=== PATIENT | female | born 1960 | race Caucasian/White ===

== ENCOUNTER 2023-09-10 21:19 | Emergency (ER) | payer MEDICAID, SELFPAY ==
--- NOTE | 2023-09-10 21:15 | HMH.EDGENADL ---
Discharge Plan Disposition Patient Disposition: Home, Self-Care Chief Complaint: Back Pain/Injury Prescriptions Prescriptions: No Action oxycodone-acetaminophen 7.5-325 mg tablet 1 tab PO TID Patient Comments: TAKE 1 TABLET BY MOUTH THREE TIMES DAILY bupropion HCl 300 mg tablet extended release 24 hr 300 mg PO DAILY Patient Comments: TAKE 1 TABLET BY MOUTH ONCE DAILY IN THE MORNING venlafaxine 75 mg capsule,extended release 24hr 75 mg PO DAILY Patient Comments: TAKE 1 CAPSULE BY MOUTH ONCE DAILY fenofibrate nanocrystallized 145 mg tablet PO Patient Comments: TAKE ONE TABLET BY MOUTH EVERY DAY docusate sodium 100 mg capsule PO Patient Comments: TAKE ONE CAPSULE BY MOUTH TWICE DAILY lidocaine 5 % adhesive patch,medicated 1 patch transdermal DAILY PRN Patient Comments: APPLY ONE PATCH TO affected area FOR 12 HOURS in A 24 HOUR period diazepam 5 mg tablet 5 mg PO TID Patient Comments: TAKE ONE TABLET BY MOUTH THREE TIMES DAILY omeprazole 20 mg capsule,delayed release(DR/EC) 20 mg PO DAILY PRN Patient Comments: TAKE ONE CAPSULE BY MOUTH EVERY DAY FOR reflux sumatriptan succinate 6 mg/0.5 mL solution SQ Patient Comments: INJECT 0.5 MILLILITERS UNDER THE SKIN AT ONSET of HEADACHE, MAY REPEAT DOSE in ONE hour If needed, no more THAN TWO doses PER 24 hours. albuterol sulfate 2.5 mg /3 mL (0.083 %) solution for nebulization 2.5 mg inhalation ONCE PRN Patient Comments: INHALE ONE vial EVERY 4 HOURS NEEDED levothyroxine [Synthroid] 50 mcg tablet 50 mcg PO DAILY Patient Comments: TAKE ONE TABLET BY MOUTH EVERY DAY dicyclomine 20 mg tablet 20 mg PO BID Patient Comments: TAKE ONE TABLET BY MOUTH EVERY 6 HOURS NEEDED diclofenac sodium [Voltaren Arthritis Pain] 1 % gel 2 g topical QID Qty: 100 2RF Rx Instructions: apply to single elbow, wrist or hand; for hand includes palm/fingers/back of hand tizanidine [Zanaflex] 4 mg capsule 4 mg PO TID PRN (Reason: muscle spasticity) Qty: 30 0RF ergocalciferol (vitamin D2) 1,250 mcg (50,000 unit) capsule 1,250 mcg PO WEEKLY Qty: 7 1RF Referrals Follow up/Referrals: Tommy Charles MD [Staff Physician] - See instructions Activity Restrictions/Add. Instructions Additional Instructions/Restrictions: Call your family doctor to establish care for this visit to the emergency department and schedule follow-up within 48 hours to ensure improvement. If you have any worsening of your condition or any other concerning signs or symptoms, return to the emergency department or your primary care doctor for further evaluation. Clinical Impressions Clinical Impression: Lumbar spine pain Instructions Patient Instructions: DI for Low Back Pain Discharge ED Provider: Tan Toro [facility] Adult HPI General Chief complaint: Back Pain/Injury Stated complaint: back pain Time Seen by Provider: 09/10/23 21:15 History of Present Illness HPI narrative: 62-year-old female history of chronic back pain on daily Percocet and Valium presenting with back pain. Patient states that she fell 2 days prior to this visit. She slipped secondary to foot drop and high arches landed directly on her buttocks. Had immediate pain in her lower back. Denies bowel or bladder dysfunction, lower extremity weakness, saddle anesthesia, or any other concerns. Concerned she may have broken her back since she has numerous fractures in her lower back in the past. Related Data Home Medications Medication Instructions Recorded Confirmed albuterol sulfate 2.5 mg/3 mL 2.5 mg inhalation ONCE PRN 08/20/23 08/20/23 (0.083 %) solution for nebulization bupropion HCl 300 mg 24 hr tablet, 300 mg PO DAILY 08/20/23 08/20/23 extended release diazepam 5 mg tablet 5 mg PO TID 08/20/23 08/20/23 dicyclomine 20 mg tablet 20 mg PO BID 08/20/23 08/20/23 docusate sodium 100 mg capsule mg PO 08/20/23 08/20/23 fenofibrate nanocrystallized 145 mg PO 08/20/23 08/20/23 mg tablet levothyroxine 50 mcg tablet 50 mcg PO DAILY 08/20/23 08/20/23 (Synthroid) lidocaine 5 % topical patch 1 patch transdermal DAILY PRN 08/20/23 08/20/23 omeprazole 20 mg capsule,delayed 20 mg PO DAILY PRN 08/20/23 08/20/23 release oxycodone-acetaminophen 7.5 mg-325 1 tab PO TID 08/20/23 08/20/23 mg tablet sumatriptan succinate 6 mg/0.5 mL mg SQ 08/20/23 08/20/23 subcutaneous solution venlafaxine 75 mg capsule,extended 75 mg PO DAILY 08/20/23 08/20/23 release 24 hr Previous Rx's Medication Instructions Recorded diclofenac sodium 1 % topical gel 2 g topical QID #100 grams 08/20/23 (Voltaren Arthritis Pain) ergocalciferol (vitamin D2) 1,250 1,250 mcg PO WEEKLY #7 caps 08/20/23 mcg (50,000 unit) capsule tizanidine 4 mg capsule (Zanaflex) 4 mg PO TID PRN muscle spasticity 08/20/23 #30 caps Allergies Allergy/AdvReac Type Severity Reaction Status Date / Time acetaminophen [From Vicodin] AdvReac Mild Verified 08/20/23 11:21 Antihistamines - Alkylamine AdvReac Mild Verified 08/20/23 11:21 aripiprazole [From Abilify] AdvReac Mild Verified 08/20/23 11:21 bacitracin AdvReac Mild Verified 08/20/23 11:21 [From Neosporin ([id number])] brexpiprazole [From Rexulti] AdvReac Mild Verified 08/20/23 11:21 buspirone [From BuSpar] AdvReac Mild Verified 08/20/23 11:21 carbamazepine [From Tegretol] AdvReac Mild Verified 08/20/23 11:21 cariprazine [From Vraylar] AdvReac Mild Verified 08/20/23 11:21 celecoxib [From Celebrex] AdvReac Mild Verified 08/20/23 11:21 chlordiazepoxide AdvReac Mild Verified 08/20/23 11:21 [From Librium] chlorpromazine AdvReac Mild Verified 08/20/23 11:21 [From Thorazine] clomipramine [From Anafranil] AdvReac Mild Verified 08/20/23 11:21 clonazepam [From Klonopin] AdvReac Mild Verified 08/20/23 11:21 codeine AdvReac Mild Verified 08/20/23 11:21 cyclobenzaprine AdvReac Mild Verified 08/20/23 11:21 [From Flexeril] desipramine [From Norpramin] AdvReac Mild Verified 08/20/23 11:21 desvenlafaxine [From Pristiq] AdvReac Mild Verified 08/20/23 11:21 dexmedetomidine AdvReac Mild Verified 08/20/23 11:21 divalproex sodium AdvReac Mild Verified 08/20/23 11:21 [From Depakote] duloxetine [From Cymbalta] AdvReac Mild Verified 08/20/23 11:21 eszopiclone [From Lunesta] AdvReac Mild Verified 08/20/23 11:21 fentanyl AdvReac Mild Verified 08/20/23 11:21 fluoxetine [From Prozac] AdvReac Mild Verified 08/20/23 11:21 hydrocodone [From Vicodin] AdvReac Mild Verified 08/20/23 11:21 ibuprofen AdvReac Mild Verified 08/20/23 11:21 lorazepam [From Ativan] AdvReac Mild Verified 08/20/23 11:21 lurasidone [From Latuda] AdvReac Mild Verified 08/20/23 11:21 meperidine [From Demerol] AdvReac Mild Verified 08/20/23 11:21 methadone AdvReac Mild Verified 08/20/23 11:21 mirtazapine [From Remeron] AdvReac Mild Verified 08/20/23 11:21 morphine AdvReac Mild Verified 08/20/23 11:21 neomycin AdvReac Mild Verified 08/20/23 11:21 [From Neosporin ([id number])] paroxetine [From Paxil] AdvReac Mild Verified 08/20/23 11:21 perphenazine [From Trilafon] AdvReac Mild Verified 08/20/23 11:21 polymyxin B AdvReac Mild Verified 08/20/23 11:21 [From Neosporin ([id number])] propranolol [From Inderal LA] AdvReac Mild Verified 08/20/23 11:21 quetiapine [From Seroquel] AdvReac Mild Verified 08/20/23 11:21 risperidone [From Risperdal] AdvReac Mild Verified 08/20/23 11:21 sertraline [From Zoloft] AdvReac Mild Verified 08/20/23 11:21 temazepam [From Restoril] AdvReac Mild Verified 08/20/23 11:21 topiramate [From Topamax] AdvReac Mild Verified 08/20/23 11:21 tramadol [From Ultram] AdvReac Mild Verified 08/20/23 11:21 vortioxetine AdvReac Mild Verified 08/20/23 11:21 [From Trintellix] ziprasidone [From Geodon] AdvReac Mild Verified 08/20/23 11:21 zolpidem [From Ambien] AdvReac Mild Verified 08/20/23 11:21 steroids Allergy Mild Uncoded 08/20/23 11:21 calmine lotion AdvReac Mild Uncoded 08/20/23 11:21 mobic AdvReac Mild Uncoded 08/20/23 11:21 PFSH PFS Disclaimer: The information contained in this section may have been updated after the patient was seen, as this information can be updated by other users. Medical History (Updated 09/10/23 @ 22:30 by Tan Toro MD) Dystonia Frequent falls Hyperlipemia Muscle spasm Sjogrens syndrome Surgical History (Updated 08/20/23 @ 10:49 by Albina Duke CMA) H/O cervical spine surgery H/O hernia repair History of arthroplasty of left ankle History of cholecystectomy History of tonsillectomy Hx of appendectomy Family History (Updated 08/20/23 @ 10:50 by Albina Duke CMA) Other Cancer Coronary artery disease Diabetes FHx: mental illness Hypertension Substance abuse Thyroid disorder Social History (Updated 08/20/23 @ 10:51 by Albina Duke CMA) Smoking Status: Never smoker alcohol intake: current substance use type: former substance user current occupational status: disabled Travel in the last 8 weeks: None ROS Obtained: Yes All systems reviewed & no additional complaints except as documented Physical Exam General General appearance: alert and in no apparent distress Head Head exam: atraumatic and normocephalic Eye Eye exam: Present normal appearance, PERRL and EOMI ENT ENT exam: Present mucous membranes moist Neck Neck exam: Present normal inspection, full ROM and trachea midline Respiratory Respiratory exam: Absent respiratory distress, wheezes, stridor, accessory muscle use or prolonged expiratory phase Cardiovascular Cardiovascular exam: Present normal rhythm Abdominal Exam Abdominal exam: Present soft; Absent distention, tenderness, guarding, rebound or rigidity Extremities Exam Extremities exam: Absent edema Back Exam Back exam: Present tenderness Neurological Exam Neurological exam: Present alert, oriented X3, CN II-XII intact and normal gait; Absent motor sensory deficit Skin Skin exam: Present warm and dry; Absent diaphoresis or erythema Medical Decision Making Medical Records Medical records reviewed: Yes I reviewed the patient's medical records. [place] Inquiry Pt receiving controlled substance: No [place] was queried for this patient: No Vital Signs: 09/10/23 21:17 09/10/23 21:45 Temperature 98.3 F Temperature Source Oral Pulse Rate 80 Pulse Rate [Right] 88 Respiratory Rate 16 Blood Pressure 166/92 H Blood Pressure [Right Arm] 144/99 H Blood Pressure Mean [Right Arm] 114 Blood Pressure Position [Right Arm] Sitting 02 Sat by Pulse Oximetry 97 97 Oxygen Delivery Method Room Air Room Air Orders (Tests/Meds): ED MEDICATIONS Discontinued Medications Generic Name Dose Route Start Last Admin Trade Name Freq PRN Reason Stop Dose Admin Acetaminophen 1,000 mg 09/10/23 21:22 09/10/23 21:33 Acetaminophen 1,000mg/100ml Vial IV 09/10/23 21:23 1,000 mg ONCE ONE Administration Lidocaine 1 each 09/10/23 21:22 09/10/23 21:34 Lidocaine 5% Transdermal Patch TP 09/10/23 21:23 1 each ONCE ONE Administration ORDERS Category Date Time Status CT lumbar spine wo con Stat Cat Scan 09/10/23 21:[address] thoracic spine wo con Stat Cat Scan 09/10/23 21:21 Completed Medical Decision Narrative: 62-year-old female history of chronic back pain on daily Percocet and Valium presenting with back pain. Patient states that she fell 2 days prior to this visit. She slipped secondary to foot drop and high arches landed directly on her buttocks. Had immediate pain in her lower back. Denies bowel or bladder dysfunction, lower extremity weakness, saddle anesthesia, or any other concerns. Concerned she may have broken her back since she has numerous fractures in her lower back in the past. History was obtained via conversation with patient. On arrival, patient hemodynamically stable, alert, oriented x4, appropriate, GCS 15, moving all extremities spontaneously, pupils equal and reactive to light. Full physical exam performed and significant for chronically ill-appearing woman in no acute distress. Tenderness to thoracolumbar spine without outward signs of deformity, bruising, or injury. No bruising. Neurologically intact. Intermittently having cramps in her left lower extremity. Differential includes fracture, sprain, strain, benign MSK injury, retropulsion, spinal compression, among others. Patient was given Toradol with EMS, acetaminophen and lidocaine patch for symptomatic management and correction of underlying abnormalities. Workup independently interpreted and significant for no acute fractures or bony abnormalities of the back. See radiology read for full review of final results. Given patient presentation, workup, history, this most likely represents acute musculoskeletal back pain in the setting of fall with chronic back pain. Because patient at baseline without signs or symptoms of clinical decompensation, deemed appropriate for discharge. Results were relayed to patient who voiced understanding and were agreeable to outpatient management and follow up. At the time of discharge the patient was hemodynamically stable, tolerating PO, and mobilizing appropriately. Critical Care Critical Care Time Critical Care Time: No
[2023-09-10 21:17] VITALS: BP 144/99; PULSE 88; RESP 16; TEMP 36.8; O2SAT 97; BMI 24.4
--- NOTE | 2023-09-10 21:21 | CT_ITS ---
PROCEDURE INFORMATION: Exam: CT Lumbar Spine Without Contrast Exam date and time: 09/10/2023 9:54 PM Age: 62 years old Clinical indication: Low back pain; Patient HX: Pain post fall a couple days ago; Additional info: Fall on buttocks, midline and R spine pain TECHNIQUE: Imaging protocol: Computed tomography of the lumbar spine without contrast. Radiation optimization: All CT scans at this facility use at least one of these dose optimization techniques: automated exposure control; mA and/or kV adjustment per patient size (includes targeted exams where dose is matched to clinical indication); or iterative reconstruction. COMPARISON: CT THORACIC SPINE WO CON 09/10/2023 9:51 PM FINDINGS: Bones/joints: Spine alignment is normal. Diffuse osteopenia. Subtle fractures may be missed. No definite fracture or bone destruction. Mild superior and inferior endplate Schmorl's node deformities sagittal image 1002/54. Disc space narrowing at L5-S1 with vacuum disc phenomenon and small posterior projecting disc osteophyte complex. Sacrum and sacroiliac joints appear intact.. Soft tissues: Unremarkable. IMPRESSION: 1. Spine alignment is normal. 2. Diffuse osteopenia. Subtle fractures may be missed. 3. No definite fracture or bone destruction. 4. Mild superior and inferior endplate Schmorl's node deformities sagittal image 1002/54. 5. Disc space narrowing at L5-S1 with vacuum disc phenomenon and small posterior projecting disc osteophyte complex. 6. Sacrum and sacroiliac joints appear intact..
--- NOTE | 2023-09-10 21:21 | CT_ITS ---
PROCEDURE INFORMATION: Exam: CT Thoracic Spine Without Contrast Exam date and time: 09/10/2023 9:51 PM Age: 62 years old Clinical indication: Pain in thoracic spine; Patient HX: States pain post fall a couple days ago; Additional info: Fall on buttocks, midline and R spine pain TECHNIQUE: Imaging protocol: Computed tomography of the thoracic spine without contrast. Radiation optimization: All CT scans at this facility use at least one of these dose optimization techniques: automated exposure control; mA and/or kV adjustment per patient size (includes targeted exams where dose is matched to clinical indication); or iterative reconstruction. COMPARISON: No relevant prior studies available. FINDINGS: Bones/joints: Mild scoliosis thoracolumbar junction convex to the left. Diffuse osteopenia. Subtle fractures may be missed. No fracture or bone destruction. Multilevel degenerative change of the thoracic spine. Calcified 4 mm disc protrusion at T6-7 sagittal image 1002/45. Soft tissues: Unremarkable. Spleen: Partially visualized calcified splenic granulomas. IMPRESSION: 1. Mild scoliosis thoracolumbar junction convex to the left. 2. Diffuse osteopenia. Subtle fractures may be missed. 3. No fracture or bone destruction. 4. Multilevel degenerative change of the thoracic spine. 5. Calcified 4 mm disc protrusion at T6-7 sagittal image 1002/45. 6. Partially visualized calcified splenic granulomas.
[2023-09-10] MEDS: ACETAMINOPHEN 1,000MG/100ML VIAL 1000 MG IV (21:33)
[2023-09-10] MEDS: LIDOCAINE 5% TRANSDERMAL PATCH 1 EACH TP (21:34)
[2023-09-10 21:45] VITALS: BP 166/92; PULSE 80; O2SAT 97
[2023-09-10 22:48] VITALS: BP 137/100; PULSE 81; RESP 18; TEMP 36.7; O2SAT 98
== END 2023-09-10 23:16 | disposition home or self-care (01) ==
PROVIDERS: Emergency Provider Emergency Medicine; PCP Nurse Practitioner Family
DX: M54.50 Low back pain, unspecified (principal); G24.9 Dystonia, unspecified; E78.5 Hyperlipidemia, unspecified; M35.00 Sjogren syndrome, unspecified; R29.6 Repeated falls; W01.0XXA Fall on same level from slipping, tripping and stumbling without subsequent striking against object, initial encounter
CPT/HCPCS: 72128; 72131; 96374; 99285; J0131

== ENCOUNTER 2023-10-06 13:02 | Outpatient (CLI) | payer MEDICAID, SELFPAY ==
--- NOTE | 2023-10-06 13:15 | XR_ITS ---
FINAL REPORT CLINICAL HISTORY: right knee pain COMPARISON: None FINDINGS: RIGHT KNEE: 4 views of the left knee were obtained. There is no acute fracture or dislocation. There is mild and moderate degenerative change. There is patellofemoral compartment narrowing. There is no joint effusion. Soft tissues are unremarkable. IMPRESSION: Degenerative change without acute bony abnormality. Reviewed, Interpreted and Dictated by Raf Bradford III, MD Transcribed by Lesli Canchola Authenticated and [facility]
== END 2023-10-06 23:59 ==
LOC: RAD 13:03
PROVIDERS: PCP Nurse Practitioner Family; Visit Provider Orthopaedic Surgery
DX: M25.561 Pain in right knee (principal)
CPT/HCPCS: 73562

== ENCOUNTER 2023-10-06 14:58 | Outpatient (RCR) | payer MEDICAID, SELFPAY | END 2023-10-06 15:45 | disposition home or self-care (01) | LOC: PT 14:58 | PROVIDERS: Visit Provider Orthopaedic Surgery | DX: M17.11 Unilateral primary osteoarthritis, right knee (principal); R29.6 Repeated falls | CPT/HCPCS: 97760 ==

== ENCOUNTER 2023-11-30 17:07 | Outpatient (CLI) | payer MEDICAID, SELFPAY ==
--- NOTE | 2023-11-30 17:07 | MR_ITS ---
FINAL REPORT CLINICAL HISTORY: Rt Knee Pain. KNEE INSTABILITY. FINDINGS: Multiplanar MR imaging of the right knee was performed without contrast. The medial and lateral menisci are intact without evidence of meniscal tear. The anterior and posterior cruciate ligaments are intact. The medial collateral ligament and lateral ligamentous complex are intact. Small partial tears are seen of the distal quadriceps tendon. The patellar tendon is intact. There is no evidence of fracture. Moderate degenerative changes are seen. Severe patellofemoral chondromalacia is noted. There is bone marrow edema throughout the patella with mild lateral patellar subluxation. A small joint effusion is seen. The musculature is intact. No soft tissue mass or cyst is identified. IMPRESSION: No evidence of meniscal or ligamentous injury. Moderate degenerative change. 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 Small partial tears of the distal quadriceps tendon. Authenticated and [facility]
== END 2023-11-30 23:59 ==
LOC: RAD 17:07
PROVIDERS: PCP Nurse Practitioner Family; Visit Provider Orthopaedic Surgery
DX: M25.561 Pain in right knee (principal)
CPT/HCPCS: 73721

== ENCOUNTER 2023-12-14 14:37 | Outpatient (CLI) | payer MEDICAID, SELFPAY ==
[2023-12-14 15:18] LABS: Basophils # 0.1 K/mm3 (0-0.2); Basophils % 1.2 % (0.1-2.0); Eosinophils # 0.2 K/mm3 (0.0-0.4); Eosinophils % 1.9 % (0.1-12.0); Hematocrit 38.9 % (37.0-47.0); Hemoglobin 12.3 g/dL (12.2-16.2); Lymphocytes # 2.6 K/mm3 (0.7-4.5); Lymphocytes % 33.1 % (10-50); Mean Corpuscular HGB Conc 31.7 g/dL (31.8-35.4); Mean Corpuscular Hemoglobin 32.1 pg (27.0-31.2); Mean Corpuscular Volume 101.4 fl (81-99); Monocytes # 0.4 K/mm3 (0.1-1.0); Neutrophils # 4.6 K/mm3 (1.8-7.8); Neutrophils % 58.8 % (37.0-80.0); Platelet Count 432 K/mm3 (142-424); Red Blood Count 3.84 M/mm3 (4.20-5.40); Red Cell Distribution Width 12.6 % (11.5-17.5); White Blood Count 7.8 K/mm3 (4.8-10.8)
[2023-12-14 16:06] LABS: Alanine Aminotransferase 25 U/L (12-78); Albumin Level 4.5 g/dl (3.5-5.0); Alkaline Phosphatase 58 U/L (38-126); Anion Gap 12.1 mEq/L (5-15); Aspartate Amino Transferase 36 U/L (14-36); Bilirubin,Total 0.3 mg/dl (0.2-1.3); Blood Urea Nitrogen 16 mg/dl (7-17); Carbon Dioxide 25 mmol/L (22.0-30.0); Chloride 106 mmol/L (98-107); Chol/HDL Ratio 2.1 (1-3.5); Cholesterol 220 mg/dl (140-200); Estimated Glomerular Filt Rate 72 ml/min (>60); GFR (African American) 87 ML/MIN (>60); Globulin 2.3 g/dL (1.3-3.2); Glucose 98 mg/dl (74-100); HDL Cholesterol 103 mg/dl (40-60); Potassium 4.1 mmoL/L (3.5-5.1); Sodium 139 mmol/L (136-145); Total Protein,Serum 6.8 g/dl (6.3-8.2); Triglycerides 90 mg/dl (30-150); VLDL Cholesterol 18 mg/dL (0-40)
[2023-12-14 16:17] LABS: Direct LDL Cholesterol 102.28 mg/dL (100-129)
[2023-12-14 16:37] LABS: Thyroid Stimulating Hormone 0.45 uIU/mL (0.465-4.68)
[2023-12-14 17:13] LABS: Vitamin B12 619 pg/mL (239-931)
[2023-12-14 17:21] LABS: Folate > 20.00 ng/mL
[2023-12-14 18:05] LABS: Iron 95 ug/dL (37-170)
[2023-12-14 18:14] LABS: Total Iron Binding Capacity 381 ug/dL (265-497)
[2023-12-14 18:41] LABS: Ferritin 34.3 ng/ml (11.1-264)
== END 2023-12-14 23:59 | disposition home or self-care (01) ==
LOC: LAB 14:37
PROVIDERS: PCP Nurse Practitioner Family; Visit Provider Nurse Practitioner Family
DX: R26.89 Other abnormalities of gait and mobility (principal); F39 Unspecified mood [affective] disorder; Z86.69 Personal history of other diseases of the nervous system and sense organs; F11.90 Opioid use, unspecified, uncomplicated; F14.91 Cocaine use, unspecified, in remission; Z86.73 Personal history of transient ischemic attack (TIA), and cerebral infarction without residual deficits; Z79.899 Other long term (current) drug therapy; W19.XXXS Unspecified fall, sequela
CPT/HCPCS: 36415; 80053; 80061; 82607; 82728; 82746; 83540; 83550; 84443; 85025

== ENCOUNTER 2024-01-19 14:28 | Outpatient (CLI) | payer MEDICAID, SELFPAY ==
[2024-01-19 15:07] LABS: Blood Urea Nitrogen 11 mg/dl (7-17); Estimated Glomerular Filt Rate 72 ml/min (>60); GFR (African American) 87 ML/MIN (>60)
== END 2024-01-19 23:59 | disposition home or self-care (01) ==
LOC: LAB 14:29
PROVIDERS: PCP Nurse Practitioner Family; Visit Provider Specialist
DX: R26.89 Other abnormalities of gait and mobility (principal); E78.5 Hyperlipidemia, unspecified; R53.1 Weakness; Z86.73 Personal history of transient ischemic attack (TIA), and cerebral infarction without residual deficits; Z86.69 Personal history of other diseases of the nervous system and sense organs; W19.XXXS Unspecified fall, sequela
CPT/HCPCS: 36415; 82565; 84520

== ENCOUNTER 2024-03-01 15:28 | Outpatient (CLI) | payer MEDICAID, SELFPAY ==
--- NOTE | 2024-03-01 15:34 | XR_ITS ---
FINAL REPORT CLINICAL HISTORY: Foot Pain FINDINGS: 3 views of the left foot were obtained. Mild degenerative changes are noted. No acute fracture is identified. No soft tissue abnormality is seen. IMPRESSION: No acute bony abnormality. Mild degenerative change. Authenticated and [facility]
== END 2024-03-01 23:59 | disposition home or self-care (01) ==
LOC: RAD 15:31
PROVIDERS: PCP Nurse Practitioner Family; Visit Provider Nurse Practitioner
DX: M79.672 Pain in left foot (principal)
CPT/HCPCS: 73630

== ENCOUNTER 2024-04-03 14:23 | Emergency (ER) | payer MEDICAID, SELFPAY ==
[2024-04-03 14:40] VITALS: BP 116/78; PULSE 87; RESP 20; TEMP 36.7; O2SAT 98; BMI 23.6
--- NOTE | 2024-04-03 14:47 | XR_ITS ---
FINAL REPORT CLINICAL HISTORY: fall FINDINGS: CERVICAL SPINE SERIES Three views demonstrate no acute fracture. There is fusion at C5-6. Mild degenerative changes are seen with rightward curvature. The disc spaces are well preserved. The vertebral body demonstrates normal height. Left carotid artery calcification is noted. IMPRESSION: No acute process. Reviewed, Interpreted and Dictated by Raf Bradford III, MD Transcribed by Alicia Sadler Authenticated and [facility]
--- NOTE | 2024-04-03 14:47 | XR_ITS ---
FINAL REPORT CLINICAL HISTORY: fall FINDINGS: LEFT FOOT Three views of the left foot demonstrate no acute fracture or dislocation. There are mild degenerative changes. The visualized joint spaces are normally aligned. The soft tissues are unremarkable. IMPRESSION: No acute bony abnormality. Reviewed, Interpreted and Dictated by Raf Bradford III, MD Transcribed by Alicia Sadler Authenticated and [facility]
--- NOTE | 2024-04-03 14:47 | XR_ITS ---
FINAL REPORT CLINICAL HISTORY: fall FINDINGS: LEFT ANKLE Three views demonstrate no acute fracture or dislocation. The visualized joint spaces are normally aligned. There are mild degenerative changes. Postoperative changes are noted of the distal fibula. The soft tissues are unremarkable. IMPRESSION: No acute bony abnormality. Reviewed, Interpreted and Dictated by Raf Bradford III, MD Transcribed by Alicia Sadler Authenticated and [facility] [place] [place]
--- NOTE | 2024-04-03 14:47 | XR_ITS ---
FINAL REPORT CLINICAL HISTORY: fall FINDINGS: LUMBAR SPINE AP and lateral views were obtained. There is no acute fracture or malalignment. There are mild to moderate degenerative changes with levoscoliosis. Vertebrae are normal height. Prevertebral soft tissues are unremarkable. IMPRESSION: No acute bony abnormality. Reviewed, Interpreted and Dictated by Raf Bradford III, MD Transcribed by Alicia Sadler Authenticated and [facility]
--- NOTE | 2024-04-03 15:16 | ED_ITS ---
Discharge Plan Disposition Patient Disposition: Home, Self-Care Condition: Good Prescriptions Prescriptions: New methocarbamol 500 mg tablet 500 mg PO BID PRN (Reason: muscle spasm) Qty: 20 0RF No Action oxcarbazepine 150 mg tablet 150 mg PO DAILY venlafaxine 37.5 mg capsule,extended release 24hr 37.5 mg PO DAILY venlafaxine 75 mg capsule,extended release 24hr 75 mg PO DAILY levothyroxine 50 mcg tablet 50 mcg PO DAILY oxycodone-acetaminophen 7.5-325 mg tablet 1 tab PO DAILY diazepam 5 mg tablet 5 mg PO DAILY Patient Comments: 5 mg orally three times a day As Needed for anxiety bupropion HCl 300 mg tablet extended release 24 hr 300 mg PO DAILY fenofibrate nanocrystallized 145 mg tablet 145 mg PO DAILY guaifenesin 600 mg tablet extended release 12hr 600 mg PO DAILY Referrals Follow up/Referrals: Regan Navarrete APRN [Primary Care Provider] - See instructions Activity Restrictions/Add. Instructions Additional Instructions/Restrictions: Go home and rest as much as you can for the next few days. No heavy lifting. No twisting. Take the oral medications as directed. The muscle relaxer (methocarbamol/robaxin) will make you drowsy, so don't drive or operate heavy machinery after taking it. Follow up with your regular doctor. GO TO THE ER FOR ANY WORSENING SYMPTOMS OR CONCERN, ESPECIALLY BOWEL OR BLADDER ISSUES, SADDLE AREA NUMBNESS, FEVER, ETC Clinical Impressions Clinical Impression: Fall, Low back pain, Neck pain, Left ankle pain Instructions Patient Instructions: DI for Neck Pain, Methocarbamol Print Language Print Language: Nepali Discharge ED Provider: Rogers Smith [facility] General Stated complaint: ao /, ankle/neck pain Mode of Arrival: Ambulatory Source of Information: Patient Limitations: No Limitations Time Seen by Provider: 04/03/24 15:16 Description of Symptoms (Recalled from Triage Doc. by RN): PATIENT STATES THAT SHE WAS IN HER 'S GARAGE WEDNESDAY EVENING WHEN SHE LOST BALANCE AND FELL. PATIENT C/O NECK AND LOWER BACK PAIN. PATIENT DENIES HITTING HER HEAD OR LOC. PATIENT ALSO STATES THAT WHEN SHE WOKE UP THIS MORNING HER LEFT ANKLE WAS DISCOLORED AND SWOLLEN, BUT SHE DOES NOT REMEMBER INJURING IT WHEN SHE FELL. NO DISCOLORATION NOTED AT THIS TIME HEENT Symptoms (Recalled from RN notes): No Resp Symptoms (Recalled from RN notes): No Skin Symptoms (Recalled from RN notes): No MS Symptoms (Recalled from RN notes): Yes Functional Status (Recalled from RN notes): WNL History of Present Illness Provider Complaint: She states that 3 days ago, she fell in her garage. She fell backwards and came down on her buttocks. Since then she has had low back pain, neck pain, and left lower leg pain. She has a history of chronic low back pain. She came in today because she has had left lower leg swelling and she is worried about having a blood clot. She denies any personal or family history of blood clots. Related Data Home Medications ?Medication ?Instructions ?Recorded ?Confirmed bupropion HCl 300 mg 24 hr tablet, 300 mg PO DAILY 04/03/24 04/03/24 extended release diazepam 5 mg tablet 5 mg PO DAILY 04/03/24 04/03/24 fenofibrate nanocrystallized 145 145 mg PO DAILY 04/03/24 04/03/24 mg tablet guaifenesin 600 mg tablet, 600 mg PO DAILY 04/03/24 04/03/24 extended release 12 hr levothyroxine 50 mcg tablet 50 mcg PO DAILY 04/03/24 04/03/24 oxcarbazepine 150 mg tablet 150 mg PO DAILY 04/03/24 04/03/24 oxycodone-acetaminophen 7.5 mg-325 1 tab PO DAILY 04/03/24 04/03/24 mg tablet venlafaxine 37.5 mg 37.5 mg PO DAILY 04/03/24 04/03/24 capsule,extended release 24 hr venlafaxine 75 mg capsule,extended 75 mg PO DAILY 04/03/24 04/03/24 release 24 hr Previous Rx's ?Medication ?Instructions ?Recorded methocarbamol 500 mg tablet 500 mg PO BID PRN muscle spasm #20 04/03/24 tabs Allergies Allergy/AdvReac Type Severity Reaction Status Date / Time calamine Allergy Verified 04/03/24 14:52 meloxicam [From Mobic] Allergy Verified 04/03/24 14:52 acetaminophen [From Vicodin] AdvReac Mild Verified 03/01/24 15:51 Antihistamines - Alkylamine AdvReac Mild Verified 03/01/24 15:51 aripiprazole [From Abilify] AdvReac Mild Verified 03/01/24 15:51 bacitracin AdvReac Mild Verified 03/01/24 15:51 [From Neosporin ([id number])] brexpiprazole [From Rexulti] AdvReac Mild Verified 03/01/24 15:51 buspirone [From BuSpar] AdvReac Mild Verified 03/01/24 15:51 carbamazepine [From Tegretol] AdvReac Mild Verified 03/01/24 15:51 cariprazine [From Vraylar] AdvReac Mild Verified 03/01/24 15:51 celecoxib [From Celebrex] AdvReac Mild Verified 03/01/24 15:51 chlordiazepoxide AdvReac Mild Verified 03/01/24 15:51 [From Librium] chlorpromazine AdvReac Mild Verified 03/01/24 15:51 [From Thorazine] clomipramine [From Anafranil] AdvReac Mild Verified 03/01/24 15:51 clonazepam [From Klonopin] AdvReac Mild Verified 03/01/24 15:51 codeine AdvReac Mild Verified 03/01/24 15:51 cyclobenzaprine AdvReac Mild Verified 03/01/24 15:51 [From Flexeril] desipramine [From Norpramin] AdvReac Mild Verified 03/01/24 15:51 desvenlafaxine [From Pristiq] AdvReac Mild Verified 03/01/24 15:51 dexmedetomidine AdvReac Mild Verified 03/01/24 15:51 divalproex sodium AdvReac Mild Verified 03/01/24 15:51 [From Depakote] duloxetine [From Cymbalta] AdvReac Mild Verified 03/01/24 15:51 eszopiclone [From Lunesta] AdvReac Mild Verified 03/01/24 15:51 fentanyl AdvReac Mild Verified 03/01/24 15:51 fluoxetine [From Prozac] AdvReac Mild Verified 03/01/24 15:51 hydrocodone [From Vicodin] AdvReac Mild Verified 03/01/24 15:51 ibuprofen AdvReac Mild Verified 03/01/24 15:51 lorazepam [From Ativan] AdvReac Mild Verified 03/01/24 15:51 lurasidone [From Latuda] AdvReac Mild Verified 03/01/24 15:51 meperidine [From Demerol] AdvReac Mild Verified 03/01/24 15:51 methadone AdvReac Mild Verified 03/01/24 15:51 mirtazapine [From Remeron] AdvReac Mild Verified 03/01/24 15:51 morphine AdvReac Mild Verified 03/01/24 15:51 neomycin AdvReac Mild Verified 03/01/24 15:51 [From Neosporin ([id number])] paroxetine [From Paxil] AdvReac Mild Verified 03/01/24 15:51 perphenazine [From Trilafon] AdvReac Mild Verified 03/01/24 15:51 polymyxin B AdvReac Mild Verified 03/01/24 15:51 [From Neosporin ([id number])] propranolol [From Inderal [place]] AdvReac Mild Verified 03/01/24 15:51 quetiapine [From Seroquel] AdvReac Mild Verified 03/01/24 15:51 risperidone [From Risperdal] AdvReac Mild Verified 03/01/24 15:51 sertraline [From Zoloft] AdvReac Mild Verified 03/01/24 15:51 temazepam [From Restoril] AdvReac Mild Verified 03/01/24 15:51 topiramate [From Topamax] AdvReac Mild Verified 03/01/24 15:51 tramadol [From Ultram] AdvReac Mild Verified 03/01/24 15:51 vortioxetine AdvReac Mild Verified 03/01/24 15:51 [From Trintellix] ziprasidone [From Geodon] AdvReac Mild Verified 03/01/24 15:51 zolpidem [From Ambien] AdvReac Mild Verified 03/01/24 15:51 steroids Allergy Mild Uncoded 03/01/24 14:43 Worker's Comp Is this a Worker's Comp case?: No [facility] Disclaimer: The information contained in this section may have been updated after the patient was seen, as this information can be updated by other users. Medical History Frequent falls Hyperlipemia Sjogrens syndrome Muscle spasm Dystonia Surgical History H/O cervical spine surgery H/O hernia repair History of tonsillectomy Hx of appendectomy History of cholecystectomy History of arthroplasty of left ankle Family History Other Cancer Coronary artery disease Diabetes FHx: mental illness Hypertension Substance abuse Thyroid disorder Social History Smoking Status: Former smoker alcohol intake: current alcohol intake frequency: a few times a month substance use type: denies use, former substance user, marijuana, crack/cocaine, opiates and prescription drug current occupational status: disabled Travel in the last 8 weeks: None household members: significant other housing: house marital status: ROS Obtained: Yes All systems reviewed & no additional complaints except as d ocumented Constitutional Constitutional: Denies chills and Denies fever(s) Eyes Eyes: Denies eye discharge ENT Ears, Nose, Mouth, and Throat: Denies dizziness, Denies otalgia and Denies sore throat Cardiovascular Cardiovascular: Denies chest pain Respiratory Respiratory: Denies shortness of breath, Denies chest congestion, Denies cough, Denies stridor and Denies wheezing Gastrointestinal Gastrointestingal: Denies nausea or vomiting Musculoskeletal Musculoskeletal: Reports as per HPI Integumentary/Breasts Skin/Breast: Reports as per HPI Neurologic Neurologic: Denies dizziness and Denies paresthesias Allergic/Immunologic Allergic/Immunologic: Denies wheezing Physical Exam General General appearance: alert and in no apparent distress Head Head exam: atraumatic, normocephalic and normal inspection Eye Eye exam: Present normal appearance, PERRL and EOMI ENT ENT exam: Present normal exam, normal oropharynx, mucous membranes moist, TM's normal bilaterally and normal external ear exam Neck Neck exam: Present normal inspection, full ROM and trachea midline; Absent meningismus or lymphadenopathy Chest Chest inspection: Present normal inspection and symmetric chest wall rise; Absent tenderness Respiratory Respiratory exam: Present normal lung sounds bilaterally; Absent respiratory distress Cardiovascular Cardiovascular exam: Present regular rate and normal rhythm; Absent JVD Abdominal Exam Abdominal exam: Present soft and normal bowel sounds; Absent distention, tenderness or guarding Extremities Exam Extremities exam: Present normal capillary refill; Absent calf tenderness Expanded Lower Extremity Exam Left: Knee exam: Present normal inspection, full ROM and knee extension intact; Absent tenderness Lower leg exam: Present normal inspection, full ROM and Achilles tendon intact; Absent tenderness or Homans' sign Ankle exam: Present normal inspection and full ROM; Absent tenderness Foot/toe exam: Present normal inspection and full ROM; Absent tenderness Neurovascular/Tendon exam: Present normal capillary refill, normal 2-point discrimination and normal fine/light touch; Absent pulse deficit, motor deficit, sensory deficit, tendon deficit, extremity cold to touch or pallor Gait: observed and limited by pain Back Exam Back exam: Present normal inspection; Absent tenderness Neurological Exam Neurological exam: Present alert, oriented X3, CN II-XII intact, normal gait and reflexes normal; Absent motor sensory deficit Expanded Neurological Exam Speech: Present fluid speech Cranial nerves: Normal: EOM function (II, III, IV, ), facial sensation (V), facial palsy (VII), gag reflex (IX), spinal accessory function (XI) and tongue deviation (XII) Cerebellar function: normal gait Motor strength - LUE: 5/5 Motor strength - LLE: 5/5 Motor strength - RLE: 5/5 Sensory exam upper extremity: Normal: light touch and 2 point discrimination Sensory exam lower extremity: Normal: light touch and 2 point discrimination DTR: 2+: biceps (L), biceps (R), patellar (L), patellar (R), Achilles tendon (L) and Achilles tendon (R) Spinal cord function: Absent saddle anesthesia Psychiatric Psychiatric exam: Present normal affect and normal mood Skin Skin exam: Present warm, dry, intact and normal color Lymphatic Lymphatic Findings: no adenopathy Medical Decision Making Medical Records Medical records reviewed: No I reviewed the patient's medical records. [place] Inquiry Pt receiving controlled substance: No Vital Signs: 04/03/24 14:40 Temperature 98.0 F Temperature Source Oral Pulse Rate [Right Brachial] 87 Respiratory Rate 20 Blood Pressure [Right Arm] 116/78 Blood Pressure Mean [Right Arm] 90 Blood Pressure Source [Right Arm] Automatic Cuff Blood Pressure Position [Right Arm] Sitting 02 Sat by Pulse Oximetry 98 Oxygen Delivery Method Room Air Orders (Tests/Meds): ORDERS Category Date Time Status Lumbar spine XR 2-3 views [XR lumbar spine 2-3V] Stat Exams 04/03/24 14:47 Ordered XR ankle LT min 3V Stat Exams 04/03/24 14:47 Ordered XR cervical spine 3V Stat Exams 04/03/24 14:47 Ordered XR foot LT min 3V Stat Exams 04/03/24 14:47 Ordered Radiology Data #1: Image(s): C-Spine Image Reviewed: Yes I reviewed the patient's radiology image and Yes I have reviewed radiologist's interpretation Preliminary Findings: No Fracture Seen Accession No. : [id number] Patient Name / ID : MARISOL PEARSON / [id number] Exam Date : 04/03/2024 15:00:41 ( Final ) Study Comment : Sex / Age : F / 63Y Creator : TRINA BRADFORD MD Dictator : Environmental Engineering Assistant : Handcrew Foreman : TRINA BRADFORD MD Approver2 : Report Date : 04/03/2024 16:33:42 My Comment : FINAL REPORT CLINICAL HISTORY: fall FINDINGS: CERVICAL SPINE SERIES Three views demonstrate no acute fracture. There is fusion at C5-6. Mild degenerative changes are seen with rightward curvature. The disc spaces are well preserved. The vertebral body demonstrates normal height. Left carotid artery calcification is noted. IMPRESSION: No acute process. Reviewed, Interpreted and Dictated by Trina Bradford III, MD Transcribed by Alicia Sadler Authenticated and [facility] #2: Image(s): L-Spine Image Reviewed: Yes I reviewed the patient's radiology image and Yes I have reviewed radiologist's interpretation Preliminary Findings: No Fracture Seen Accession No. : [id number] Patient Name / ID : MARISOL PEARSON / [id number] Exam Date : 04/03/2024 15:09:20 ( Final ) Study Comment : Sex / Age : F / 63Y Creator : TRINA BRADFORD MD Dictator : Environmental Engineering Assistant : Handcrew Foreman : TRINA BRADFORD MD Approver2 : Report Date : 04/03/2024 16:33:26 My Comment : FINAL REPORT CLINICAL HISTORY: fall FINDINGS: LUMBAR SPINE AP and lateral views were obtained. There is no acute fracture or malalignment. There are mild to moderate degenerative changes with levoscoliosis. Vertebrae are normal height. Prevertebral soft tissues are unremarkable. IMPRESSION: No acute bony abnormality. Reviewed, Interpreted and Dictated by Trina Bradford III, MD Transcribed by Alicia Sadler Authenticated and [facility] CT Data ED CT Reviewed: Yes I have reviewed the patient's CT results and I have viewed the radiologist's interpretation US Data US Images: Lower Extremity ED US Reviewed: Yes I have reviewed the patient's US results and I have viewed radiologist's interpretation Preliminary Findings: Normal/NAD Findings Narrative: Accession No. : [id number] Patient Name / ID : Marisol Pearson / [id number] Exam Date : 04/03/2024 16:26:24 ( Final ) Study Comment : Sex / Age : F / 63Y Creator : TRINA BRADFORD MD Dictator : Environmental Engineering Assistant : Handcrew Foreman : TRINA BRADFORD MD Approver2 : Report Date : 04/03/2024 17:34:28 My Comment : FINAL REPORT TECHNIQUE: Color Doppler, duplex Doppler and compression sonography of the left lower extremity deep venous systems was performed. CLINICAL HISTORY: left calf pain, warmth and swelling FINDINGS: There is no evidence of deep venous thrombosis from the level of the groin to the calf. The veins are patent and compressible. IMPRESSION: No evidence of deep venous thrombosis left lower extremity. Authenticated and ERN
--- NOTE | 2024-04-03 15:52 | CA_ITS ---
FINAL REPORT TECHNIQUE: Color Doppler, duplex Doppler and compression sonography of the left lower extremity deep venous systems was performed. CLINICAL HISTORY: left calf pain, warmth and swelling FINDINGS: There is no evidence of deep venous thrombosis from the level of the groin to the calf. The veins are patent and compressible. IMPRESSION: No evidence of deep venous thrombosis left lower extremity. Authenticated and ERN
[2024-04-03 17:15] VITALS: BP 116/78; PULSE 87; RESP 20; TEMP 36.7; O2SAT 98
== END 2024-04-03 17:19 | disposition home or self-care (01) ==
PROVIDERS: Emergency Provider Nurse Practitioner Family; PCP Nurse Practitioner Family
DX: M54.2 Cervicalgia (principal); M25.572 Pain in left ankle and joints of left foot; M54.50 Low back pain, unspecified; W18.30XA Fall on same level, unspecified, initial encounter
CPT/HCPCS: 72040; 72100; 73610; 73630; 93971; 99204; 99212; G0463

== ENCOUNTER 2024-04-20 14:56 | Outpatient (CLI) | payer MEDICAID, SELFPAY ==
--- NOTE | 2024-04-20 14:57 | MR_ITS ---
FINAL REPORT CLINICAL HISTORY: Foot Pain COMPARISON: None FINDINGS: Multiplanar MR imaging of the left foot was performed without contrast. The Achilles tendon and plantar fascia are intact. The ankle mortise is intact. The bony structures are intact without evidence of fracture, bone bruise, or marrow edema. There are no osteochondral lesions. The flexor and extensor tendons are intact. The musculature is intact. The plantar aponeurosis is intact. No soft tissue mass or cyst is identified. No evidence of soft tissue inflammation. IMPRESSION: No focal abnormality is identified. Reviewed, Interpreted and Dictated by Delroy Lovell MD Transcribed by Lesli Canchola Authenticated and [facility]
== END 2024-04-20 23:59 | disposition home or self-care (01) ==
LOC: RAD 14:57
PROVIDERS: PCP Nurse Practitioner Family; Visit Provider Nurse Practitioner
DX: M79.672 Pain in left foot (principal)
CPT/HCPCS: 73718

== ENCOUNTER 2024-05-12 22:22 | Emergency (ER) | payer MEDICAID, SELFPAY ==
[2024-05-12 22:22] VITALS: BP 151/79; PULSE 92; RESP 18; TEMP 36.8; O2SAT 98; BMI 23.3
[2024-05-12 23:00] VITALS: BP 131/91; PULSE 83; O2SAT 96
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
[2024-05-12 23:30] VITALS: BP 146/81; PULSE 82; O2SAT 98
[2024-05-12 23:37] VITALS: BP 146/81; PULSE 81; RESP 18; TEMP 36.8; O2SAT 96
--- NOTE | 2024-05-12 23:45 | PC.NURSE ---
Patient given D/C papers at [id number]. Patient does not have a ride at this time. I have tried to contact her boyfriend but have been unsuccessful. Patient is under the influence of alcohol and can not be placed in the lobby at this time.
[2024-05-13] VITALS (10 sets, daily range): BP systolic 0–167; BP diastolic 0–87; PULSE 78–95; RESP 20; O2SAT 92–98
--- NOTE | 2024-05-13 02:50 | PC.NURSE ---
0250: Pt. sleeping still awaiting for a ride.
--- NOTE | 2024-05-13 03:42 | PC.NURSE ---
Called patients boyfriend/ride home- he is not answering the phone at this time.
--- NOTE | 2024-05-13 05:11 | PC.NURSE ---
Called patients boyfriend/roommate to pick patient up; was unable to reach him at this time.
--- NOTE | 2024-05-13 06:12 | PC.NURSE ---
Reached patients boyfriend; he states he will come and get her in a little bit
--- NOTE | 2024-05-13 06:17 | PC.NURSE ---
breakfast try ordered
== END 2024-05-13 06:44 | disposition home or self-care (01) ==
PROVIDERS: Emergency Provider Student in an Organized Health Care Education/Training Program; PCP Nurse Practitioner Family
DX: R45.88 Nonsuicidal self-harm (principal); F31.9 Bipolar disorder, unspecified; F43.10 Post-traumatic stress disorder, unspecified
CPT/HCPCS: 99283

== ENCOUNTER 2024-06-09 15:30 | Emergency (ER) | payer MEDICAID, SELFPAY ==
[2024-06-09 15:50] VITALS: BP 139/86; PULSE 89; RESP 20; TEMP 36.4; O2SAT 98; BMI 23.1
--- NOTE | 2024-06-09 16:04 | ED_ITS ---
Discharge Plan Disposition Patient Disposition: Home, Self-Care Condition: Good Prescriptions Prescriptions: New cephalexin 500 mg capsule 500 mg PO BID 7 Days Qty: 14 0RF phenazopyridine [Pyridium] 200 mg tablet 200 mg PO Q8H 2 Days Qty: 6 0RF ondansetron 4 mg tablet,disintegrating 4 mg PO Q8H PRN (Reason: nausea and vomiting) Qty: 10 0RF No Action oxcarbazepine 150 mg tablet 150 mg PO DAILY venlafaxine 37.5 mg capsule,extended release 24hr 37.5 mg PO DAILY venlafaxine 75 mg capsule,extended release 24hr 75 mg PO DAILY levothyroxine 50 mcg tablet 50 mcg PO DAILY docusate sodium 100 mg capsule 100 mg PO DAILY oxycodone-acetaminophen 7.5-325 mg tablet 1 tab PO DAILY diazepam 5 mg tablet 5 mg PO DAILY fenofibrate nanocrystallized 145 mg tablet 145 mg PO DAILY guaifenesin 600 mg tablet extended release 12hr 600 mg PO DAILY Referrals Follow up/Referrals: Regan Navarrete APRN [Primary Care Provider] - See instructions Activity Restrictions/Add. Instructions Additional Instructions/Restrictions: *Increase fluids. Water not Soda or Tea *Start antibiotic immediately and be sure to take as ordered for the FULL length of time although you should start to see improvement over the next 48 hours *Pyridium as needed Remember this medication will turn your urine . This is normal but it will stain what ever it gets on *You should not use Pyridium for more than 48 hours. If so , follow up with your primary physician to review urine culture and ensure that antibiotic is adequate for infection *Be SURE to follow up anytime for new or worsening symptoms with your family doctor. AND in 48 hours for urine culture results with your family doctor, if you do not have a doctor then you may call back to the [facility] for urine culture results and further treatment. We do recommend that you choose and establish care with a Primary Care Physician. ?AND follow up with them ?in 10-14 days to repeat UA to ensure infection is resolved and blood no longer present *Be sure to let your PCP know that we sent urine cultures from the [facility] so they can follow up to ensure that you area the on the correct antibiotic Call your doctor office and make appointment for 48 hours (2 days from today) ?to follow up and get the results of your urine culture and further treatment Clinical Impressions Clinical Impression: UTI (urinary tract infection) Instructions Patient Instructions: DI for Urinary Tract Infection (UTI), Urinary Tract Infection Print Language Print Language: Estonian Discharge ED Provider: Daniella Colon [facility] [place] General Stated complaint: Pain with urination, frequent urination Mode of Arrival: Ambulatory Source of Information: Patient Limitations: No Limitations Time Seen by Provider: 06/09/24 16:04 Description of Symptoms (Recalled from Triage Doc. by RN): PATIENT C/O FREQUENCY, URGENCY AND BURNING WITH URINATION FOR A COUPLE OF WEEKS HEENT Symptoms (Recalled from RN notes): No Resp Symptoms (Recalled from RN notes): No Skin Symptoms (Recalled from RN notes): No MS Symptoms (Recalled from RN notes): No Functional Status (Recalled from RN notes): WNL History of Present Illness Provider Complaint: Patient states that she started a couple weeks ago with achy like feeling in her lower back, burning with urination and urinary frequency and urgency States she started drinking lemon and it got better but now the symptoms has returned and she is worried she may have a UTI Related Data Home Medications ?Medication ?Instructions ?Recorded ?Confirmed diazepam 5 mg tablet 5 mg PO DAILY 06/09/24 06/09/24 docusate sodium 100 mg capsule 100 mg PO DAILY 06/09/24 06/09/24 fenofibrate nanocrystallized 145 145 mg PO DAILY 06/09/24 06/09/24 mg tablet guaifenesin 600 mg tablet, 600 mg PO DAILY 06/09/24 06/09/24 extended release 12 hr levothyroxine 50 mcg tablet 50 mcg PO DAILY 06/09/24 06/09/24 oxcarbazepine 150 mg tablet 150 mg PO DAILY 06/09/24 06/09/24 oxycodone-acetaminophen 7.5 mg-325 1 tab PO DAILY 06/09/24 06/09/24 mg tablet venlafaxine 37.5 mg 37.5 mg PO DAILY 06/09/24 06/09/24 capsule,extended release 24 hr venlafaxine 75 mg capsule,extended 75 mg PO DAILY 06/09/24 06/09/24 release 24 hr Previous Rx's ?Medication ?Instructions ?Recorded cephalexin 500 mg capsule 500 mg PO BID 7 days #14 caps 06/09/24 ondansetron 4 mg disintegrating 4 mg PO Q8H PRN nausea and 06/09/24 tablet vomiting #10 tabs phenazopyridine 200 mg tablet 200 mg PO Q8H pain 2 days #6 tabs 06/09/24 (Pyridium) Allergies Allergy/AdvReac Type Severity Reaction Status Date / Time calamine Allergy Verified 06/05/24 16:03 meloxicam [From Mobic] Allergy Verified 06/05/24 16:03 acetaminophen [From Vicodin] AdvReac Mild Verified 06/05/24 16:03 Antihistamines - Alkylamine AdvReac Mild Verified 06/05/24 16:03 aripiprazole [From Abilify] AdvReac Mild Verified 06/05/24 16:03 bacitracin AdvReac Mild Verified 06/05/24 16:03 [From Neosporin ([id number])] brexpiprazole [From Rexulti] AdvReac Mild Verified 06/05/24 16:03 buspirone [From BuSpar] AdvReac Mild Verified 06/05/24 16:03 carbamazepine [From Tegretol] AdvReac Mild Verified 06/05/24 16:03 cariprazine [From Vraylar] AdvReac Mild Verified 06/05/24 16:03 celecoxib [From Celebrex] AdvReac Mild Verified 06/05/24 16:03 chlordiazepoxide AdvReac Mild Verified 06/05/24 16:03 [From Librium] chlorpromazine AdvReac Mild Verified 06/05/24 16:03 [From Thorazine] clomipramine [From Anafranil] AdvReac Mild Verified 06/05/24 16:03 clonazepam [From Klonopin] AdvReac Mild Verified 06/05/24 16:03 codeine AdvReac Mild Verified 06/05/24 16:03 cyclobenzaprine AdvReac Mild Verified 06/05/24 16:03 [From Flexeril] desipramine [From Norpramin] AdvReac Mild Verified 06/05/24 16:03 desvenlafaxine [From Pristiq] AdvReac Mild Verified 06/05/24 16:03 dexmedetomidine AdvReac Mild Verified 06/05/24 16:03 divalproex sodium AdvReac Mild Verified 06/05/24 16:03 [From Depakote] duloxetine [From Cymbalta] AdvReac Mild Verified 06/05/24 16:03 eszopiclone [From Lunesta] AdvReac Mild Verified 06/05/24 16:03 fentanyl AdvReac Mild Verified 06/05/24 16:03 fluoxetine [From Prozac] AdvReac Mild Verified 06/05/24 16:03 hydrocodone [From Vicodin] AdvReac Mild Verified 06/05/24 16:03 ibuprofen AdvReac Mild Verified 06/05/24 16:03 lorazepam [From Ativan] AdvReac Mild Verified 06/05/24 16:03 lurasidone [From Latuda] AdvReac Mild Verified 06/05/24 16:03 meperidine [From Demerol] AdvReac Mild Verified 06/05/24 16:03 methadone AdvReac Mild Verified 06/05/24 16:03 mirtazapine [From Remeron] AdvReac Mild Verified 06/05/24 16:03 morphine AdvReac Mild Verified 06/05/24 16:03 neomycin AdvReac Mild Verified 06/05/24 16:03 [From Neosporin ([id number])] paroxetine [From Paxil] AdvReac Mild Verified 06/05/24 16:03 perphenazine [From Trilafon] AdvReac Mild Verified 06/05/24 16:03 polymyxin B AdvReac Mild Verified 06/05/24 16:03 [From Neosporin ([id number])] propranolol [From Inderal LA] AdvReac Mild Verified 06/05/24 16:03 quetiapine [From Seroquel] AdvReac Mild Verified 06/05/24 16:03 risperidone [From Risperdal] AdvReac Mild Verified 06/05/24 16:03 sertraline [From Zoloft] AdvReac Mild Verified 06/05/24 16:03 temazepam [From Restoril] AdvReac Mild Verified 06/05/24 16:03 topiramate [From Topamax] AdvReac Mild Verified 06/05/24 16:03 tramadol [From Ultram] AdvReac Mild Verified 06/05/24 16:03 vortioxetine AdvReac Mild Verified 06/05/24 16:03 [From Trintellix] ziprasidone [From Geodon] AdvReac Mild Verified 06/05/24 16:03 zolpidem [From Ambien] AdvReac Mild Verified 06/05/24 16:03 steroids Allergy Mild Uncoded 03/01/24 14:43 Worker's Comp Is this a Worker's Comp case?: No [facility] Disclaimer: The information contained in this section may have been updated after the patient was seen, as this information can be updated by other users. Medical History Frequent falls Hyperlipemia Sjogrens syndrome Muscle spasm Dystonia Surgical History H/O cervical spine surgery H/O hernia repair History of tonsillectomy Hx of appendectomy History of cholecystectomy History of arthroplasty of left ankle Family History Other Cancer Coronary artery disease Diabetes FHx: mental illness Hypertension Substance abuse Thyroid disorder Social History Smoking Status: Never smoker alcohol intake: current alcohol intake frequency: a few times a month substance use type: denies use, former substance user, marijuana, crack/cocaine, opiates and prescription drug current occupational status: disabled Travel in the last 8 weeks: None household members: significant other housing: house marital status: ROS Obtained: Yes All systems reviewed & no additional complaints except as documented and Yes Systems reviewed as appropriate & no additional complaints except as documented Constitutional Constitutional: Reports system reviewed and no additional complaints, except as documented, Reports as per HPI, Denies body ache, Denies chills, Denies fever(s) and Denies headache(s) ENT Ears, Nose, Mouth, and Throat: Reports system reviewed and no additional complaints, except as documented, Reports as per HPI and Denies headache(s) Cardiovascular Cardiovascular: Reports system reviewed and no additional complaints, except as documented and Reports as per HPI Respiratory Respiratory: Reports system reviewed and no additional complaints, except as documented and Reports as per HPI Gastrointestinal Gastrointestingal: Reports system reviewed and no additional complaints, except as documented and as per HPI; Denies abdominal pain Genitourinary Female Genitourinary: Reports system reviewed and no additional complaints, except as documented, Reports as per HPI, Reports dysuria, Reports urinary frequency and Reports urinary urgency Neurologic Neurologic: Denies headache(s) Physical Exam General General appearance: alert and in no apparent distress ENT ENT exam: Present mucous membranes moist Respiratory Respiratory exam: Present normal lung sounds bilaterally; Absent respiratory distress or wheezes Cardiovascular Cardiovascular exam: Present regular rate, normal rhythm and normal heart sounds Abdominal Exam Abdominal exam: Present soft and normal bowel sounds; Absent distention or tenderness Neurological Exam Neurological exam: Present alert, oriented X3 and normal gait Medical Decision Making Medical Records Screening: Per USPSTF and CDC recommendations, given the prevalence of disease in our region, it is our hospital?s policy to screen for HIV and viral Hepatitis for all patients aged 18 and over and those with ongoing risk factors. Nghia Inquiry Pt receiving controlled substance: No Nghia was queried for this patient: No Vital Signs: 06/09/24 15:50 Temperature 97.6 F Temperature Source Oral Pulse Rate [Left Brachial] 89 Respiratory Rate 20 Blood Pressure [Left Arm] 139/86 Blood Pressure Mean [Left Arm] 103 Blood Pressure Source [Left Arm] Automatic Cuff Blood Pressure Position [Left Arm] Sitting 02 Sat by Pulse Oximetry 98 Oxygen Delivery Method Room Air Lab Data Lab results reviewed: Yes I reviewed the patient's lab results. Orders (Tests/Meds): ORDERS Category Date Time Status UA [Urinalysis and Microscopic] Stat Lab 06/09/24 15:45 Ordered Medical Decision Narrative: Patient states that she has taken zofran, cephalexin and pyridium in the past without complications or reactions Patient requesting zofran states medications make her sick at her stomach Medication discussed with pharmacy
[2024-06-09 16:12] LABS: Microscopic, Urine URINE MICROSCOPIC (MICROSCOPIC)
[2024-06-09 16:15] LABS: Appearance,Urine CLEAR (Clear); Bilirubin,Urine Negative (Negative); Blood, Urine Negative (Negative); Color,Urine YELLOW (Yellow); Glucose,Urine (UA) Negative (Negative); Ketones,Urine Negative (Negative); Leukocyte Esterase,Urine 2+ (Negative); Nitrate,Urine Negative (Negative); Protein,Urine Negative (Negative); Urobilinogen,Urine 0.2 EU/dl (0.2)
[2024-06-09 16:26] LABS: Squamous Epithelial Cell,Urine 50-100 #/hpf (0-5); WBC,Urine TNTC #/hpf (0-3)
[2024-06-09 16:27] LABS: Bacteria,Urine 2+ /lpf
[2024-06-09 16:28] VITALS: BP 139/86; PULSE 89; RESP 20; TEMP 36.4; O2SAT 98
--- NOTE | 2024-06-12 14:21 | PC.NURSE ---
REVIEWED URINE CULTURE WITH Rhiannon ROSS APRN. NO CHANGES NEEDED AT THIS TIME
== END 2024-06-09 16:30 | disposition home or self-care (01) ==
PROVIDERS: Emergency Provider Nurse Practitioner; PCP Nurse Practitioner Family
DX: N39.0 Urinary tract infection, site not specified (principal)
CPT/HCPCS: 81001; 87086; 87088; 87186; 99213; G0381

== ENCOUNTER 2024-06-12 16:24 | Emergency (ER) | payer MEDICAID, SELFPAY ==
[2024-06-12 16:24] VITALS: BP 152/89; PULSE 86; RESP 16; TEMP 36.7; O2SAT 95; BMI 23.3
--- NOTE | 2024-06-12 16:31 | CT_ITS ---
PROCEDURE INFORMATION: Exam: CT Abdomen And Pelvis Without Contrast Exam date and time: 06/12/2024 4:48 PM Age: 63 years old Clinical indication: Abdominal pain; Flank; Right lower quadrant (rlq); Additional info: R flank/rlq pain, UTI TECHNIQUE: Imaging protocol: Computed tomography of the abdomen and pelvis without contrast. Radiation optimization: All CT scans at this facility use at least one of these dose optimization techniques: automated exposure control; mA and/or kV adjustment per patient size (includes targeted exams where dose is matched to clinical indication); or iterative reconstruction. COMPARISON: 1. CT LUMBAR SPINE WO CON 09/10/2023 9:[address] THORACIC SPINE WO CON 09/10/2023 9:51 PM 3. CR XR LUMBAR SPINE 2-3V 04/03/2024 3:09 PM FINDINGS: Liver: There are calcifications in the liver which most likely reflect calcified granulomas. Gallbladder and biliary ducts: The patient is status post cholecystectomy. Pancreas: Normal. Spleen: There are multiple calcifications in the spleen most likely reflects small granulomas. Adrenal glands: The adrenal glands appear normal. Kidneys and ureters: No urolithiasis or hydronephrosis. Stomach and bowel: There is large volume stool throughout the colon. Appendix: No evidence of appendicitis. Intraperitoneal space: Unremarkable. Vasculature: The abdominal aorta and its major branches appear normal without evidence of aneurysm or stenosis. There are pelvic phleboliths. Lymph nodes: No lymphadenopathy. Urinary bladder: There is moderate bladder wall thickening which could relate to under distension or cystitis. Reproductive: The patient has undergone prior hysterectomy. Bones/joints: There is a levo scoliotic curvature of the spine. Chronic compression deformity of L2 appears stable. Soft tissues: Unremarkable. IMPRESSION: 1. There is moderate bladder wall thickening which could relate to under distension or cystitis. 2. No urolithiasis or hydronephrosis.
--- NOTE | 2024-06-12 16:34 | ED_ITS ---
Discharge Plan Disposition Patient Disposition: Home, Self-Care Condition: Good Prescriptions Prescriptions: New polyethylene glycol 3350 [Miralax] 17 gram/dose powder 17 g PO DAILY Qty: 510 0RF ondansetron 4 mg tablet,disintegrating 4 mg PO Q8H PRN (Reason: nausea and vomiting) 4 Days Qty: 12 0RF No Action oxcarbazepine 150 mg tablet 150 mg PO DAILY venlafaxine 37.5 mg capsule,extended release 24hr 37.5 mg PO DAILY venlafaxine 75 mg capsule,extended release 24hr 75 mg PO DAILY levothyroxine 50 mcg tablet 50 mcg PO DAILY docusate sodium 100 mg capsule 100 mg PO DAILY oxycodone-acetaminophen 7.5-325 mg tablet 1 tab PO DAILY diazepam 5 mg tablet 5 mg PO DAILY fenofibrate nanocrystallized 145 mg tablet 145 mg PO DAILY guaifenesin 600 mg tablet extended release 12hr 600 mg PO DAILY cephalexin 500 mg capsule 500 mg PO BID 7 Days Qty: 14 0RF phenazopyridine [Pyridium] 200 mg tablet 200 mg PO Q8H 2 Days Qty: 6 0RF ondansetron 4 mg tablet,disintegrating 4 mg PO Q8H PRN (Reason: nausea and vomiting) Qty: 10 0RF Referrals Follow up/Referrals: Regan Navarrete APRN [Primary Care Provider] - See instructions Activity Restrictions/Add. Instructions Additional Instructions/Restrictions: You were evaluated in the emergency department today. 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 Please continue taking your antibiotic for urinary tract infection and complete the full course as prescribed. Based on your culture, there is no indication that this should clear the infection. We have sent a new culture just to be on the safe side. This is pending and we will call you if there are any changes based on results over the next 24 to 48 hours. Take Tylenol and ibuprofen at home as needed for pain. Make sure you stay hydrated. Return to the emergency department for new or worsening symptoms. Follow-up with your primary care provider over the next 48 hours for reassessment. Clinical Impressions Clinical Impression: Constipation, UTI (urinary tract infection) Instructions Patient Instructions: DI for Urinary Tract Infection (UTI), DI for Constipation Print Language Print Language: Bol[place]ian Discharge ED Provider: Viktoriya Marc General Adult HPI General Chief complaint: Urogenital-Female Stated complaint: UTI Time Seen by Provider: 06/12/24 16:25 History of Present Illness HPI narrative: This patient is a 63-year-old female with a history of hypertension, hyperlipidemia, bipolar disorder, PTSD, and GLADIS presenting to the emergency department for evaluation with concern for right flank pain, right groin pain, and persistent urinary tract symptoms. She states she has had intermittent urinary tract infection symptoms for the last 2 months now and finally felt bad enough to be seen 06/09/2024. She went to urgent treatment center, where urinalysis was sent and she was found to have UTI. She started on Keflex and Pyridium, which she states she has been taking as prescribed but her symptoms are worsening and not improving. She notes she is having chills, nausea, and significant right flank/right groin pain. She still is having dysuria despite taking the medications. She did take Pyridium already today. On medical record review, her urine culture was positive for Citrobacter freundii. It is sensitive to cephalosporins, so her cephalexin should be covering this. Related Data Home Medications ?Medication ?Instructions ?Recorded ?Confirmed diazepam 5 mg tablet 5 mg PO DAILY 06/09/24 06/09/24 docusate sodium 100 mg capsule 100 mg PO DAILY 06/09/24 06/09/24 fenofibrate nanocrystallized 145 145 mg PO DAILY 06/09/24 06/09/24 mg tablet guaifenesin 600 mg tablet, 600 mg PO DAILY 06/09/24 06/09/24 extended release 12 hr levothyroxine 50 mcg tablet 50 mcg PO DAILY 06/09/24 06/09/24 oxcarbazepine 150 mg tablet 150 mg PO DAILY 06/09/24 06/09/24 oxycodone-acetaminophen 7.5 mg-325 1 tab PO DAILY 06/09/24 06/09/24 mg tablet venlafaxine 37.5 mg 37.5 mg PO DAILY 06/09/24 06/09/24 capsule,extended release 24 hr venlafaxine 75 mg capsule,extended 75 mg PO DAILY 06/09/24 06/09/24 release 24 hr Previous Rx's ?Medication ?Instructions ?Recorded cephalexin 500 mg capsule 500 mg PO BID 7 days #14 caps 06/09/24 ondansetron 4 mg disintegrating 4 mg PO Q8H PRN nausea and 06/09/24 tablet vomiting #10 tabs phenazopyridine 200 mg tablet 200 mg PO Q8H pain 2 days #6 tabs 06/09/24 (Pyridium) ondansetron 4 mg disintegrating 4 mg PO Q8H PRN nausea and 06/12/24 tablet vomiting 4 days #12 tabs polyethylene glycol 3350 17 17 g PO DAILY #510 grams 06/12/24 gram/dose oral powder (Miralax) Allergies Allergy/AdvReac Type Severity Reaction Status Date / Time calamine Allergy Verified 06/05/24 16:03 meloxicam [From Mobic] Allergy Verified 06/05/24 16:03 acetaminophen [From Vicodin] AdvReac Mild Verified 06/05/24 16:03 Antihistamines - Alkylamine AdvReac Mild Verified 06/05/24 16:03 aripiprazole [From Abilify] AdvReac Mild Verified 06/05/24 16:03 bacitracin AdvReac Mild Verified 06/05/24 16:03 [From Neosporin ([id number])] brexpiprazole [From Rexulti] AdvReac Mild Verified 06/05/24 16:03 buspirone [From BuSpar] AdvReac Mild Verified 06/05/24 16:03 carbamazepine [From Tegretol] AdvReac Mild Verified 06/05/24 16:03 cariprazine [From Vraylar] AdvReac Mild Verified 06/05/24 16:03 celecoxib [From Celebrex] AdvReac Mild Verified 06/05/24 16:03 chlordiazepoxide AdvReac Mild Verified 06/05/24 16:03 [From Librium] chlorpromazine AdvReac Mild Verified 06/05/24 16:03 [From Thorazine] clomipramine [From Anafranil] AdvReac Mild Verified 06/05/24 16:03 clonazepam [From Klonopin] AdvReac Mild Verified 06/05/24 16:03 codeine AdvReac Mild Verified 06/05/24 16:03 cyclobenzaprine AdvReac Mild Verified 06/05/24 16:03 [From Flexeril] desipramine [From Norpramin] AdvReac Mild Verified 06/05/24 16:03 desvenlafaxine [From Pristiq] AdvReac Mild Verified 06/05/24 16:03 dexmedetomidine AdvReac Mild Verified 06/05/24 16:03 divalproex sodium AdvReac Mild Verified 06/05/24 16:03 [From Depakote] duloxetine [From Cymbalta] AdvReac Mild Verified 06/05/24 16:03 eszopiclone [From Lunesta] AdvReac Mild Verified 06/05/24 16:03 fentanyl AdvReac Mild Verified 06/05/24 16:03 fluoxetine [From Prozac] AdvReac Mild Verified 06/05/24 16:03 hydrocodone [From Vicodin] AdvReac Mild Verified 06/05/24 16:03 ibuprofen AdvReac Mild Verified 06/05/24 16:03 lorazepam [From Ativan] AdvReac Mild Verified 06/05/24 16:03 lurasidone [From Latuda] AdvReac Mild Verified 06/05/24 16:03 meperidine [From Demerol] AdvReac Mild Verified 06/05/24 16:03 methadone AdvReac Mild Verified 06/05/24 16:03 mirtazapine [From Remeron] AdvReac Mild Verified 06/05/24 16:03 morphine AdvReac Mild Verified 06/05/24 16:03 neomycin AdvReac Mild Verified 06/05/24 16:03 [From Neosporin ([id number])] paroxetine [From Paxil] AdvReac Mild Verified 06/05/24 16:03 perphenazine [From Trilafon] AdvReac Mild Verified 06/05/24 16:03 polymyxin B AdvReac Mild Verified 06/05/24 16:03 [From Neosporin ([id number])] propranolol [From Inderal LA] AdvReac Mild Verified 06/05/24 16:03 quetiapine [From Seroquel] AdvReac Mild Verified 06/05/24 16:03 risperidone [From Risperdal] AdvReac Mild Verified 06/05/24 16:03 sertraline [From Zoloft] AdvReac Mild Verified 06/05/24 16:03 temazepam [From Restoril] AdvReac Mild Verified 06/05/24 16:03 topiramate [From Topamax] AdvReac Mild Verified 06/05/24 16:03 tramadol [From Ultram] AdvReac Mild Verified 06/05/24 16:03 vortioxetine AdvReac Mild Verified 06/05/24 16:03 [From Trintellix] ziprasidone [From Geodon] AdvReac Mild Verified 06/05/24 16:03 zolpidem [From Ambien] AdvReac Mild Verified 06/05/24 16:03 steroids Allergy Mild Uncoded 03/01/24 14:43 PFSH [facility] Disclaimer: The information contained in this section may have been updated after the patient was seen, as this information can be updated by other users. Medical History Frequent falls Hyperlipemia Sjogrens syndrome Muscle spasm Dystonia Surgical History H/O cervical spine surgery H/O hernia repair History of tonsillectomy Hx of appendectomy History of cholecystectomy History of arthroplasty of left ankle Family History Other Cancer Coronary artery disease Diabetes FHx: mental illness Hypertension Substance abuse Thyroid disorder Social History Smoking Status: Current some day smoker alcohol intake: current alcohol intake frequency: a few times a month substance use type: denies use, former substance user, marijuana, crack/cocaine, opiates and prescription drug current occupational status: disabled Travel in the last 8 weeks: None household members: significant other housing: house marital status: Other Medical History Have you received the Pneumonia Vaccine: No ROS Obtained: Yes All systems reviewed & no additional complaints except as documented Physical Exam General General appearance: alert and in no apparent distress Head Head exam: atraumatic and normocephalic Eye Eye exam: Present normal appearance, PERRL and EOMI ENT ENT exam: Present normal exam, normal oropharynx, mucous membranes moist and normal external ear exam Neck Neck exam: Present normal inspection, full ROM and trachea midline; Absent tenderness Chest Chest inspection: Present normal inspection and symmetric chest wall rise; Absent tenderness Respiratory Respiratory exam: Present normal lung sounds bilaterally; Absent respiratory distress, wheezes, stridor or accessory muscle use Cardiovascular Cardiovascular exam: Present regular rate and normal rhythm Abdominal Exam Abdominal exam: Present soft; Absent distention, tenderness or guarding Extremities Exam Extremities exam: Present normal inspection, full ROM and normal capillary refill; Absent tenderness or edema Back Exam Back exam: Present normal inspection and full ROM; Absent tenderness Neurological Exam Neurological exam: Present alert, oriented X3, CN II-XII intact and normal gait; Absent motor sensory deficit Psychiatric Psychiatric exam: Present normal affect and normal mood Skin Skin exam: Present warm and dry Medical Decision Making Medical Records Medical records reviewed: Yes I reviewed the patient's medical records. Screening: Per USPSTF and CDC recommendations, given the prevalence of disease in our region, it is our hospital?s policy to screen for HIV and viral Hepatitis for all patients aged 18 and over and those with ongoing risk factors. [place] Inquiry Pt receiving controlled substance: No Vital Signs: 06/12/24 16:24 06/12/24 17:45 06/12/24 18:22 Temperature 98.0 F Temperature Source Oral Pulse Rate 69 75 Pulse Rate [Left Radial] 86 Respiratory Rate 16 18 Blood Pressure 130/74 137/84 Blood Pressure [Right Arm] 152/89 H Blood Pressure Mean 107 Blood Pressure Mean [Right Arm] 110 Blood Pressure Source [Right Arm] Automatic Cuff Blood Pressure Position [Right Arm] Sitting 02 Sat by Pulse Oximetry 95 95 97 Oxygen Delivery Method Room Air 06/12/24 18:30 06/12/24 18:44 Temperature 98.5 F Temperature Source Pulse Rate 80 78 Pulse Rate [Left Radial] Respiratory Rate 16 Blood Pressure 140/90 140/90 Blood Pressure [Right Arm] Blood Pressure Mean Blood Pressure Mean [Right Arm] Blood Pressure Source [Right Arm] Blood Pressure Position [Right Arm] 02 Sat by Pulse Oximetry 96 Oxygen Delivery Method Room Air Lab Data Lab results reviewed: Yes I reviewed the patient's lab results. Lab Results 06/12/24 16:30: Urine Color Yellow, Urine Appearance Clear, Urine pH 6.5, Ur Specific Mobile 1.010, Urine Protein Trace, Urine Glucose (UA) Trace, Urine Ketones Negative, Urine Blood Negative, Urine Nitrate Positive, Urine Bilirubin Negative, Urine Urobilinogen 2.0, Ur Leukocyte Esterase Trace 06/12/24 16:43: WBC 7.1, RBC 4.06 L, Hgb 13.0, Hct 41.2, MCV 101.6 H, MCH 32.0 H , MCHC 31.5 L, RDW 12.8, Plt Count 488 H, MPV 7.8, Neut % (Auto) 56.9, Lymph % (Auto) 30.0, Norman % (Auto) 7.2, Eos % (Auto) 3.4, Baso % (Auto) 2.5 H, Neut # (Auto) 4.1, Lymph # (Auto) 2.1, Norman # (Auto) 0.5, Eos # (Auto) 0.2, Baso # (Auto) 0.2, Sodium 140, Potassium 4.8, Chloride 103, Carbon Dioxide 30, Anion Gap 11.8, BUN 16, Creatinine 0.90, Estimated Creat Clear 57, Estimated GFR 63, Est GFR ( Amer) 76, Glucose 101 H, Lactate 0.6 L, Calcium 9.9, Total Bilirubin 0.6, AST 44 H, ALT 25, Alkaline Phosphatase 43, Total Protein 8.8 H D, Albumin 4.9, Globulin 3.9 H, Albumin/Globulin Ratio 1.3 06/12/24 16:43 06/12/24 16:43 Orders (Tests/Meds): ED MEDICATIONS Generic Name Dose Route Start Last Admin Trade Name Freq PRN Reason Stop Dose Admin Ondansetron HCl 4 mg 06/12/24 18:37 06/12/24 18:40 Ondansetron 4mg Odt SL 06/12/24 18:38 4 mg ONCE ONE Administration Discontinued Medications Generic Name Dose Route Start Last Admin Trade Name Freq PRN Reason Stop Dose Admin Acetaminophen 1,000 mg 06/12/24 16:32 06/12/24 16:40 Acetaminophen 500mg Tab PO 06/12/24 16:33 1,000 mg ONCE ONE Administration Ketorolac Tromethamine 15 mg 06/12/24 16:32 06/12/24 16:40 Ketorolac 30mg/Ml Vial IV 06/12/24 16:33 15 mg ONCE ONE Administration Ondansetron HCl 4 mg 06/12/24 16:32 06/12/24 16:40 Ondansetron 4mg/2ml Vial IV 06/12/24 16:33 4 mg ONCE ONE Administration Sennosides 17.2 mg 06/12/24 17:31 06/12/24 17:50 Senna 8.6mg Tablet PO 06/12/24 17:32 17.2 mg ONCE ONE Administration Sodium Phosphate 133 ml 06/12/24 17:30 06/12/24 17:50 Sodium Phos/Biphosphate Fleet 133ml Enema RC 06/12/24 17:31 133 ml ONCE ONE Administration ORDERS Category Date Time Status CT abdomen pelvis wo con Stat Cat Scan 06/12/24 16:31 Completed Complete Blood Count Auto Diff Stat Lab 06/12/24 16:43 Completed Comprehensive Metabolic Panel Stat Lab 06/12/24 16:43 Completed HIV (1&2) Antibody Rapid Stat Lab 06/12/24 16:43 Received Hep C Ab with Reflex to RNA Stat Lab 06/12/24 16:43 Received Lactic Acid Stat Lab 06/12/24 16:43 Completed UA [Urinalysis and Microscopic] Stat Lab 06/12/24 16:30 Results Blood Culture Stat Micro 06/12/24 17:00 Received Urine Culture Stat Micro 06/12/24 16:30 Received Medical Decision Narrative: In summary, this patient is a 63-year-old female presenting to the Emergency Department for evaluation of chills, nausea, right flank pain, right lower quadrant pain, and UTI symptoms despite being on outpatient antibiotics. Differential diagnoses considered include but are not limited to pyelonephritis, failed outpatient antibiotic treatment of UTI, ureterolithiasis, colitis, nephric abscess. Ruling out the most morbid conditions drove assessment. It should be noted patient's history includes hypertension, hyperlipidemia, PTSD, bipolar disorder which may or may not be at goal therapy. This complicates all aspects of care by increasing patient's risk for morbidity. I reviewed patient's past medical records and noted previous [facility] evaluation. Also noted prior surgical history of appendectomy and cholecystectomy. I also noted that she has multiple medications allergies, complicating care. On exam, the patient is sitting upright in the stretcher in no acute distress with reassuring vital signs on cardiac telemetry. Workup included CBC, CMP, lactic, blood cultures, urinalysis, urine culture, and CT abdomen and pelvis without IV contrast. Urinalysis will automatically appear to have infection because she is taking Pyridium, but we will send a culture to see if she still growing bacteria at this time. I reviewed patient's medication allergies and noted she is allergic to Vicodin, so acetaminophen is listed. Will try to give her oral Tylenol. Also notes she is allergic to meloxicam, but will administer Toradol symptomatic improvement if she is in agreement with this. She is also given IV Zofran. We will push p.o. fluids for hydration given IV fluid shortage. I independently interpreted CT scan prior to the radiologist read and noted very large stool burden and bladder wall thickening but no obvious obstructive uropathy. Please see their read for final interpretation. Labs were obtained that demonstrated no significant leukocytosis and normal kidney function. Urine has positive nitrates and trace leukocyte esterase which is overall an improvement from her prior urinalysis. Culture was sent and is pending. On reassessment, patient had good improvement after administration of interventions above. I discussed with her her findings concerning for significant stool burden, which could be causing compression on her bladder or incomplete emptying which could be worsening her UTI symptoms. She is agreeable to enema and oral senna here. She was given this and had a good bowel movement afterward. She felt little bit better after this with improved pain but still mild nausea. Given this, she was given another dose of oral Zofran. Ultimately, I feel based on reassuring workup and improvement in symptoms that she is appropriate for discharge home with continued antibiotic treatment of UTI, MiraLAX for constipation, and Zofran to have as needed for nausea. I do not see a need to change her antibiotic at this time, but will follow-up based on culture results. Patient was given strict return precautions and instructions for close outpatient follow-up with primary care. She is discharged after all questions were answered Critical Care Critical Care Time Critical Care Time: No
[2024-06-12 16:37] LABS: Microscopic, Urine URINE MICROSCOPIC (MICROSCOPIC)
[2024-06-12] MEDS: ACETAMINOPHEN 500MG TAB 1000 MG PO (16:40)
[2024-06-12] MEDS: ONDANSETRON 4MG/2ML VIAL 4 MG IV (16:40)
[2024-06-12] MEDS: KETOROLAC 30MG/ML VIAL 15 MG IV (16:40)
[2024-06-12 16:52] LABS: Appearance,Urine CLEAR (Clear); Bilirubin,Urine Negative (Negative); Blood, Urine Negative (Negative); Color,Urine YELLOW (Yellow); Glucose,Urine (UA) TRACE (Negative); Ketones,Urine Negative (Negative); Leukocyte Esterase,Urine TRACE (Negative); Nitrate,Urine POSITIVE (Negative); PH,Urine 6.5 (5.0-8.5); Protein,Urine TRACE (Negative)
[2024-06-12 16:54] LABS: Basophils # 0.2 K/mm3 (0-0.2); Basophils % 2.5 % (0.1-2.0); Eosinophils # 0.2 K/mm3 (0.0-0.4); Eosinophils % 3.4 % (0.1-12.0); Hematocrit 41.2 % (37.0-47.0); Lymphocytes # 2.1 K/mm3 (0.7-4.5); Mean Corpuscular HGB Conc 31.5 g/dL (31.8-35.4); Mean Corpuscular Volume 101.6 fl (81-99); Mean Platelet Volume 7.8 fl (7.4-10.4); Monocytes # 0.5 K/mm3 (0.1-1.0); Monocytes % 7.2 % (1.7-9.3); Neutrophils # 4.1 K/mm3 (1.8-7.8); Neutrophils % 56.9 % (37.0-80.0); Platelet Count 488 K/mm3 (142-424); Red Blood Count 4.06 M/mm3 (4.20-5.40); Red Cell Distribution Width 12.8 % (11.5-17.5); White Blood Count 7.1 K/mm3 (4.8-10.8)
[2024-06-12 17:45] VITALS: BP 130/74; PULSE 69; O2SAT 95
[2024-06-12 17:50] LABS: Albumin Level 4.9 g/dl (3.5-5.0); Chloride 103 mmol/L (98-107); Sodium 140 mmol/L (136-145)
[2024-06-12] MEDS: SODIUM PHOS/BIPHOSPHATE FLEET 133ML ENEMA 133 ML RC (17:50)
[2024-06-12] MEDS: SENNA 8.6MG TABLET 17.2 MG PO (17:50)
[2024-06-12 17:51] LABS: Potassium 4.8 mmoL/L (3.5-5.1)
[2024-06-12 17:53] LABS: Alanine Aminotransferase 25 U/L (12-78); Anion Gap 11.8 mEq/L (5-15); Aspartate Amino Transferase 44 U/L (14-36); Blood Urea Nitrogen 16 mg/dl (7-17); Carbon Dioxide 30 mmol/L (22.0-30.0); Creatinine Clearance Estimated 57 mL/min (50-200); Estimated Glomerular Filt Rate 63 ml/min (>60); GFR (African American) 76 ML/MIN (>60); Lactic Acid 0.6 mmol/L (0.7-2.1)
[2024-06-12 17:54] LABS: Albumin/Globulin Ratio 1.3 (1.1-1.8); Alkaline Phosphatase 43 U/L (38-126); Bilirubin,Total 0.6 mg/dl (0.2-1.3); Calcium 9.9 mg/dl (8.4-10.2); Globulin 3.9 g/dL (1.3-3.2); Glucose 101 mg/dl (74-100); Total Protein,Serum 8.8 g/dl (6.3-8.2)
[2024-06-12 18:22] VITALS: BP 137/84; PULSE 75; RESP 18; O2SAT 97
--- NOTE | 2024-06-12 18:22 | PC.NURSE ---
PT HAD XLARGE BM. DR VAZQUEZ NOTIFIED
[2024-06-12 18:30] VITALS: BP 140/90; PULSE 80; O2SAT 96
[2024-06-12] MEDS: ONDANSETRON 4MG ODT 4 MG SL (18:40)
[2024-06-12 18:44] VITALS: BP 140/90; PULSE 78; RESP 16; TEMP 36.9
[2024-06-12 19:01] LABS: Bacteria,Urine 2+ /lpf
[2024-06-12 19:54] LABS: HIV (1&2) Antibody Rapid NONREACTIVE (NONREACTIVE)
[2024-06-14 05:27] LABS: HCV Ab Non Reactive (Non Reactive)
--- NOTE | 2024-06-16 07:37 | PC.NURSE ---
urine culture complete, no growth.
== END 2024-06-12 19:18 | disposition home or self-care (01) ==
PROVIDERS: Emergency Provider Emergency Medicine; PCP Nurse Practitioner Family
DX: N39.0 Urinary tract infection, site not specified (principal); K59.00 Constipation, unspecified; R10.9 Unspecified abdominal pain; R68.83 Chills (without fever); R11.0 Nausea
CPT/HCPCS: 74176; 80053; 81001; 83605; 85025; 86803; 87040; 87086; 87389; 96374; 96375; 99284; J1885; J2405; Q0162

== ENCOUNTER 2024-07-19 10:05 | Outpatient (CLI) | payer MEDICAID, SELFPAY ==
[2024-07-20 10:04] LABS: Triiodothryronine (T3) Uptake 37 % (23.5-40.5)
[2024-07-20 10:05] LABS: Free Thyroxine Index 2.7 ug/dL (5.93-13.13); T4 (Thyroxine) 7.3 ug/dl (5.53-11.0)
[2024-07-20 10:19] LABS: Thyroid Stimulating Hormone 1.18 uIU/mL (0.465-4.68)
== END 2024-07-19 23:59 | disposition home or self-care (01) ==
LOC: LAB.DROPOF 07-20 10:05
PROVIDERS: PCP Nurse Practitioner Family; Visit Provider Nurse Practitioner Family
DX: R79.89 Other specified abnormal findings of blood chemistry (principal)
CPT/HCPCS: 84436; 84443; 84479

== ENCOUNTER 2024-10-03 15:16 | Outpatient (CLI) | payer MEDICARE, MEDICAID, SELFPAY ==
--- NOTE | 2024-10-03 15:27 | MR_ITS ---
PROCEDURE INFORMATION: Exam: MR Head Without and With Contrast Exam date and time: 10/03/2024 3:52 PM Age: 63 years old Clinical indication: Other: Imbalanced , HX of CVA; Additional info: Imbalance, falls, prior brain trauma. HX of CVA TECHNIQUE: Imaging protocol: Magnetic resonance imaging of the head without and with contrast. Contrast material: PROHANCE; Contrast volume: 14 ml; Contrast route: IV; COMPARISON: No relevant prior studies available. FINDINGS: Brain: No acute infarct identified on diffusion-weighted imaging. The brain demonstrates generalized volume loss, prominent for age. The T2 weighted imaging demonstrates patchy foci of increased signal intensity in the deep and subcortical white matter most likely representing mild chronic small vessel ischemic change. There are chronic bilateral gangliocapsular lacunar infarcts. Areas of bilateral cerebral convexity sulcal widening. No enhancing intracranial pathology. Cerebral ventricles: The ventricles are moderately enlarged in keeping with volume loss. Bones: Fuae-of-mrvqrlrn upper cervical spine degenerative changes. Paranasal sinuses: Trace ethmoid mucosal thickening. Mastoid air cells: Normal as visualized. No mastoid effusion. Orbital cavities: Unremarkable. Soft tissues: A right frontal scalp lipoma. IMPRESSION: No evidence of acute infarct.
--- NOTE | 2024-10-03 15:27 | MR_ITS ---
FINAL REPORT CLINICAL HISTORY: Imbalance, falls, hx of CVA, Brain injury COMPARISON: None FINDINGS: Multiple projection images of the brain arterial vasculature were obtained without contrast. Raw data images were also reviewed. The internal carotid arteries are patent. The middle cerebral arteries and visualized proximal branches are patent. The anterior cerebral arteries are patent. The intracranial vertebral arteries are patent. The basilar artery is patent. The posterior cerebral arteries are patent. IMPRESSION: No major vessel occlusion. Reviewed, Interpreted and Dictated by Delroy Lovell MD Transcribed by Maggy Mackey Authenticated and [facility]
--- NOTE | 2024-10-03 15:27 | MR_ITS ---
FINAL REPORT CLINICAL HISTORY: imbalance, falls, hx of cva, brain injury COMPARISON: None FINDINGS: Multiple projection images of the neck arterial vasculature were obtained without contrast. The raw data images were also reviewed. The right common carotid artery has an unremarkable appearance without evidence of stenosis or occlusion. The right internal carotid artery has an unremarkable appearance without evidence of stenosis or occlusion. The right external carotid artery is patent. The right vertebral artery is patent without evidence of stenosis. The left common carotid artery has an unremarkable appearance without evidence of stenosis or occlusion. The left internal carotid artery is patent without evidence of stenosis or occlusion. The left external carotid artery is patent. The left vertebral artery is patent without evidence of stenosis. IMPRESSION: Unremarkable MR angiogram of the neck without evidence of significant stenosis or occlusion. Reviewed, Interpreted and Dictated by Delroy Lovell MD Transcribed by Maggy Mackey Authenticated and [facility]
[2024-10-03 15:53] LABS: Anion Gap 12.4 mEq/L (5-15); Blood Urea Nitrogen 15 mg/dl (7-17); Calcium 9.8 mg/dl (8.4-10.2); Carbon Dioxide 29 mmol/L (22.0-30.0); Chloride 105 mmol/L (98-107); Estimated Glomerular Filt Rate 72 ml/min (>60); GFR (African American) 87 ML/MIN (>60); Glucose 95 mg/dl (74-100); Potassium 4.4 mmoL/L (3.5-5.1); Sodium 142 mmol/L (136-145)
[2024-10-03] MEDS: SODIUM CHLORIDE 0.9% 10ML SYR (RAD ONLY) 10 ML IV (16:53)
[2024-10-03] MEDS: GADOTERIDOL INJ 10ML SYRINGE 14 ML IV (16:53)
== END 2024-10-03 23:59 | disposition home or self-care (01) ==
LOC: RAD 15:18
PROVIDERS: PCP Nurse Practitioner Family; Visit Provider Specialist
DX: R26.89 Other abnormalities of gait and mobility (principal); Z86.73 Personal history of transient ischemic attack (TIA), and cerebral infarction without residual deficits; Z86.69 Personal history of other diseases of the nervous system and sense organs; F14.91 Cocaine use, unspecified, in remission; F39 Unspecified mood [affective] disorder; F11.90 Opioid use, unspecified, uncomplicated
CPT/HCPCS: 36415; 70544; 70547; 70553; 80048; A9576

== ENCOUNTER 2024-10-23 14:25 | Emergency (ER) | payer MEDICAID, SELFPAY ==
[2024-10-23] VITALS (7 sets, daily range): BP systolic 147–188; BP diastolic 88–101; PULSE 63–86; RESP 16–18; TEMP 36.6–36.8; O2SAT 96–100; BMI 21.9
--- NOTE | 2024-10-23 14:29 | ECG_ITS ---
APPROVED REPORT Exam: Resting ECG HR:85 bpm ECG Measurements Heart Rate 85 AXES LA 139 P 17 QRSd 80 QRS 39 QT 359 T 44 QTc 401 Conclusion SINUS RHYTHM NORMAL ECG UNCONFIRMED REPORT Normal sinus rhythm with ventricular rate of [address] elevation or depression. QTc normal at 359 Electronically signed by : YARELI SERVIN, 10/24/2024 06:58:56
--- NOTE | 2024-10-23 14:40 | CT_ITS ---
PROCEDURE INFORMATION: Exam: CT Abdomen And Pelvis Without Contrast Exam date and time: 10/23/2024 5:19 PM Age: 63 years old Clinical indication: Abdominal pain; Additional info: Lower abdominal pain, pain after intercourse TECHNIQUE: Imaging protocol: Computed tomography of the abdomen and pelvis without contrast. Radiation optimization: All CT scans at this facility use at least one of these dose optimization techniques: automated exposure control; mA and/or kV adjustment per patient size (includes targeted exams where dose is matched to clinical indication); or iterative reconstruction. COMPARISON: CT ABDOMEN PELVIS WO CON 06/12/2024 4:48 PM FINDINGS: Lungs: The visualized lung bases demonstrate no focal infiltrates or pleural effusions. Coronary arteries: Prominent left anterior descending coronary artery calcifications. Liver: The liver appears within normal limits. Gallbladder and biliary ducts: There has been a cholecystectomy. Pancreas: The pancreas is normal. Spleen: Splenic granulomas noted. Adrenal glands: The adrenal glands appear within normal limits. Kidneys and ureters: The kidneys are normal. Stomach and bowel: Slightly prominent retained stool within the cecum. The cecum is noted to extend into the mid pelvic region where it exerts mild mass effect upon the bladder dome. Appendix: No evidence of appendicitis. Intraperitoneal space: Unremarkable. No free air. No significant fluid collection. Vasculature: Unremarkable. No abdominal aortic aneurysm. Lymph nodes: Unremarkable. No enlarged lymph nodes. Urinary bladder: The bladder appears within normal limits. No wall thickening. Reproductive: The uterus and adnexal structures appear normal. Bones/joints: Moderate levoscoliosis thoracic-lumbar spine. Soft tissues: Unremarkable. IMPRESSION: 1. Moderate levoscoliosis thoracic-lumbar spine. 2. Slightly prominent retained stool within the cecum. The cecum is noted to extend into the mid pelvic region where it exerts mild mass effect upon the bladder dome. 3. No acute inflammatory process identified within the abdomen or pelvis.
--- NOTE | 2024-10-23 14:43 | ED_ITS ---
Discharge Plan Disposition Patient Disposition: Home, Self-Care Condition: Good Prescriptions Prescriptions: New polyethylene glycol 3350 [Miralax] 17 gram/dose powder 17 g PO DAILY Qty: 510 0RF sennosides [Senna Laxative] 8.6 mg tablet 8.6 mg PO DAILY Qty: 30 0RF No Action diclofenac sodium [Voltaren Arthritis Pain] 1 % gel 2 g topical QID Qty: 100 2RF Rx Instructions: apply to single elbow, wrist or hand; for hand includes palm/fingers/back of hand lidocaine [DermacinRx Lidocan] 5 % adhesive patch,medicated 1 patch topical DAILY Qty: 15 2RF Rx Instructions: leave on most painful area for up to 12 hrs sennosides [senna] 8.6 mg tablet 8.6 mg PO DAILY PRN (Reason: constipation) Qty: 90 0RF ondansetron 4 mg tablet,disintegrating 4 mg PO Q8H PRN (Reason: nausea and vomiting) 10 Days Qty: 30 2RF guaifenesin 600 mg tablet extended release 12hr 600 mg PO DAILY Qty: 90 0RF tizanidine 2 mg tablet 2 mg PO Q8H PRN (Reason: muscle spasticity) Qty: 90 0RF levothyroxine 50 mcg tablet 50 mcg PO DAILY Qty: 90 0RF fenofibrate nanocrystallized 145 mg tablet See Rx Instructions .ROUTE .COMPLEX Qty: 90 2RF Dose Instruction: TAKE ONE TABLET BY MOUTH ONCE A DAY Rx Instructions: TAKE ONE TABLET BY MOUTH ONCE A DAY bupropion HCl [Wellbutrin XL] 300 mg tablet extended release 24 hr 300 mg PO DAILY Qty: 30 2RF diazepam 5 mg tablet 5 mg PO BID PRN (Reason: anxiety) Qty: 60 0RF venlafaxine [Effexor XR] 150 mg capsule,extended release 24hr 150 mg PO DAILY Qty: 30 1RF polyethylene glycol 3350 [Miralax] 17 gram/dose powder 17 g PO DAILY Qty: 510 0RF oxycodone-acetaminophen 7.5-325 mg tablet 1 tab PO DAILY phenazopyridine [Pyridium] 200 mg tablet 200 mg PO Q8H 2 Days Qty: 6 0RF Referrals Follow up/Referrals: Albina Jarrell DO [Staff Physician] - See instructions Provider,Referral, [Referring] - See instructions Activity Restrictions/Add. Instructions Additional Instructions/Restrictions: Due to your discomfort with vaginal intercourse, you are being referred to Dr. Jarrell, a vp scientific. Call this number to schedule an appointment [phone]. Clinical Impressions Clinical Impression: Dyspareunia, Abdominal pain, Constipation Stand Alone Forms Stand Alone Forms: Work/School Release Instructions Patient Instructions: DI for Constipation, DI for Acute Abdominal Pain Print Language Print Language: French Discharge ED Provider: Viktoriya Marc General Adult HPI <Leobardo Walker MD - Last Filed: 10/23/24 16:10> General Chief complaint: Abdominal Pain Stated complaint: Weakness Time Seen by Provider: 10/23/24 14:35 Mode of Arrival: Ambulatory Source of Information: Patient Limitations: No Limitations Description of Symptoms (Recalled from ER Triage Doc. by RN): Pt arrives from triage with c/o stroke like symptoms. Upon evaluation patient states she has been out of her medications. Pt states she was unable to poultry picker her medications on wednesday and has not had her wellbutrin, she tooke her effoxor yesterday and spilt a diazepam tablet up to take over the weekend. Pt also has c/o chronic abdominal pain. History of Present Illness HPI narrative: Diamond Damon is a 63-year-old female with a past medical history of COPD, UTI, genital herpes, TIA, generalized anxiety disorder who presents to the emergency department for complaints of lower abdominal pain. Patient states that over the last several days, whenever she has vaginal intercourse, she has worse adelaida lower abdominal pain that is crampy in nature. She states that she has had ruptured cyst in the past and has had her left ovary removed but it feels similar to that type of pain. She reports some mild vaginal bleeding after intercourse at times but none currently. She does report that she has had urinary tract infections in the past and does not believe that she has completely cleared her most recent one as she is continue to have some burning with urination and lower abdominal pain. She does report that she was told that she may need her uterus removed at some point in the future. 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 She reports that she missed her medications on Wednesday so she is only taking 1 dose of her Wellbutrin, Effexor and Valium since then. She reports some word finding difficulty but notes that this is common for her whenever she gets tired or misses some of her medications. She denies any focal weakness or numbness. Related Data Home Medications ?Medication ?Instructions ?Recorded ?Confirmed oxycodone-acetaminophen 7.5 mg-325 1 tab PO DAILY 06/09/24 10/06/24 mg tablet Previous Rx's ?Medication ?Instructions ?Recorded phenazopyridine 200 mg tablet 200 mg PO Q8H pain 2 days #6 tabs 06/09/24 (Pyridium) polyethylene glycol 3350 17 17 g PO DAILY #510 grams 06/12/24 gram/dose oral powder (Miralax) ondansetron 4 mg disintegrating 4 mg PO Q8H PRN nausea and 06/28/24 tablet vomiting 10 days #30 tabs diclofenac sodium 1 % topical gel 2 g topical QID #100 grams 07/19/24 (Voltaren Arthritis Pain) lidocaine 5 % topical patch 1 patch topical DAILY #15 ea 07/19/24 (DermacinRx Lidocan) sennosides 8.6 mg tablet (senna) 8.6 mg PO DAILY PRN constipation 07/19/24 #90 tabs guaifenesin 600 mg tablet, 600 mg PO DAILY #90 tabs 08/01/24 extended release 12 hr tizanidine 2 mg tablet 2 mg PO Q8H PRN muscle spasticity 08/28/24 #90 tabs levothyroxine 50 mcg tablet 50 mcg PO DAILY #90 tabs 10/06/24 fenofibrate nanocrystallized 145 See Rx Instructions .Route 10/13/24 mg tablet .COMPLEX #90 tabs bupropion HCl 300 mg 24 hr tablet, 300 mg PO DAILY #30 tabs 10/21/24 extended release (Wellbutrin XL) diazepam 5 mg tablet 5 mg PO BID PRN anxiety #60 tabs 10/21/24 venlafaxine 150 mg 150 mg PO DAILY #30 caps 10/21/24 capsule,extended release 24 hr (Effexor XR) polyethylene glycol 3350 17 17 g PO DAILY #510 grams 10/23/24 gram/dose oral powder (Miralax) sennosides 8.6 mg tablet (Senna 8.6 mg PO DAILY #30 tabs 10/23/24 Laxative) Allergies Allergy/AdvReac Type Severity Reaction Status Date / Time calamine Allergy Verified 10/06/24 10:21 meloxicam (From Mobic) Allergy Verified 10/06/24 10:21 acetaminophen (From Vicodin) AdvReac Mild Verified 10/06/24 10:21 Antihistamines - Alkylamine AdvReac Mild Verified 10/06/24 10:21 aripiprazole (From Abilify) AdvReac Mild Verified 10/06/24 10:21 bacitracin (From Neosporin AdvReac Mild Verified 10/06/24 10:21 ([id number])) brexpiprazole (From Rexulti) AdvReac Mild Verified 10/06/24 10:21 buspirone (From BuSpar) AdvReac Mild Verified 10/06/24 10:21 carbamazepine (From Tegretol) AdvReac Mild Verified 10/06/24 10:21 cariprazine (From Vraylar) AdvReac Mild Verified 10/06/24 10:21 celecoxib (From Celebrex) AdvReac Mild Verified 10/06/24 10:21 chlordiazepoxide (From AdvReac Mild Verified 10/06/24 10:21 Librium) chlorpromazine (From AdvReac Mild Verified 10/06/24 10:21 Thorazine) clomipramine (From Anafranil) AdvReac Mild Verified 10/06/24 10:21 clonazepam (From Klonopin) AdvReac Mild Verified 10/06/24 10:21 codeine AdvReac Mild Verified 10/06/24 10:21 cyclobenzaprine (From AdvReac Mild Verified 10/06/24 10:21 Flexeril) desipramine (From Norpramin) AdvReac Mild Verified 10/06/24 10:21 desvenlafaxine (From Pristiq) AdvReac Mild Verified 10/06/24 10:21 dexmedetomidine AdvReac Mild Verified 10/06/24 10:21 divalproex sodium (From AdvReac Mild Verified 10/06/24 10:21 Depakote) duloxetine (From Cymbalta) AdvReac Mild Verified 10/06/24 10:21 eszopiclone (From Lunesta) AdvReac Mild Verified 10/06/24 10:21 fentanyl AdvReac Mild Verified 10/06/24 10:21 fluoxetine (From Prozac) AdvReac Mild Verified 10/06/24 10:21 hydrocodone (From Vicodin) AdvReac Mild Verified 10/06/24 10:21 ibuprofen AdvReac Mild Verified 10/06/24 10:21 lorazepam (From Ativan) AdvReac Mild Verified 10/06/24 10:21 lurasidone (From Latuda) AdvReac Mild Verified 10/06/24 10:21 meperidine (From Demerol) AdvReac Mild Verified 10/06/24 10:21 methadone AdvReac Mild Verified 10/06/24 10:21 mirtazapine (From Remeron) AdvReac Mild Verified 10/06/24 10:21 morphine AdvReac Mild Verified 10/06/24 10:21 neomycin (From Neosporin AdvReac Mild Verified 10/06/24 10:21 ([id number])) paroxetine (From Paxil) AdvReac Mild Verified 10/06/24 10:21 perphenazine (From Trilafon) AdvReac Mild Verified 10/06/24 10:21 polymyxin B (From Neosporin AdvReac Mild Verified 10/06/24 10:21 ([id number])) propranolol (From Inderal [place]) AdvReac Mild Verified 10/06/24 10:21 quetiapine (From Seroquel) AdvReac Mild Verified 10/06/24 10:21 risperidone (From Risperdal) AdvReac Mild Verified 10/06/24 10:21 sertraline (From Zoloft) AdvReac Mild Verified 10/06/24 10:21 temazepam (From Restoril) AdvReac Mild Verified 10/06/24 10:21 topiramate (From Topamax) AdvReac Mild Verified 10/06/24 10:21 tramadol (From Ultram) AdvReac Mild Verified 10/06/24 10:21 vortioxetine (From AdvReac Mild Verified 10/06/24 10:21 Trintellix) ziprasidone (From Geodon) AdvReac Mild Verified 10/06/24 10:21 zolpidem (From Ambien) AdvReac Mild Verified 10/06/24 10:21 steroids Allergy Mild Uncoded 10/06/24 10:21 PFSH <Leobardo Walker MD - Last Filed: 10/23/24 16:10> [facility] Disclaimer: The information contained in this section may have been updated after the patient was seen, as this information can be updated by other users. Medical History Breast cancer screening Frequent falls Hyperlipemia Sjogrens syndrome Muscle spasm Dystonia Surgical History H/O cervical spine surgery H/O hernia repair History of tonsillectomy Hx of appendectomy History of cholecystectomy History of arthroplasty of left ankle Family History Other Cancer Coronary artery disease Diabetes FHx: mental illness Hypertension Substance abuse Thyroid disorder Social History Smoking Status: Never smoker alcohol intake: current alcohol intake frequency: a few times a month substance use type: denies use, former substance user, marijuana, crack/cocaine, opiates and prescription drug current occupational status: disabled Travel in the last 8 weeks: None household members: significant other housing: house marital status: Have you lived/traveled outside [place] in past 30 days?: No Contact w/someone who lives/traveled outside [place] past 30 days?: No Exposure to someone with infectious disease in past 14 days?: No Do you have a fever (greater than 100.4 F or 38 C)?: No Have you tested positive for COVID-19: No Exposed to someone with COVID-19 in past 14 days?: No Do you have a sore throat?: No Do you have a cough?: No Do you have any weakness?: Yes Do you have any diarrhea?: No Are you experiencing any unusual bleeding?: No Do you have any muscle aches/pain?: No Do you have any abdominal pain?: No Are you experiencing loss of taste or smell?: No Other Medical History Have you received the Pneumonia Vaccine: Yes <Leobardo Walker MD - Last Filed: 10/23/24 16:10> ROS Obtained: Yes Systems reviewed as appropriate & no additional complaints except as documented Physical Exam <Leobardo Walker MD - Last Filed: 10/23/24 16:10> General General appearance: alert, in no apparent distress and anxious Head Head exam: atraumatic Eye Eye exam: Present normal appearance ENT ENT exam: Present normal external ear exam Neck Neck exam: Present full ROM Chest Chest inspection: Present symmetric chest wall rise Respiratory Respiratory exam: Present normal lung sounds bilaterally; Absent respiratory distress, wheezes or stridor Cardiovascular Cardiovascular exam: Present regular rate and normal rhythm Abdominal Exam Abdominal exam: Present soft and tenderness (suprapubic and RLQ); Absent distention or guarding Extremities Exam Extremities exam: Present normal inspection Back Exam Back exam: Present normal inspection Neurological Exam Neurological exam: Present alert and oriented X3 Psychiatric Psychiatric exam: Present normal affect and anxious Skin Skin exam: Present warm and dry Medical Decision Making <Leobardo Walker MD - Last Filed: 10/23/24 16:10> Medical Records Screening: Per USPSTF and CDC recommendations, given the prevalence of disease in our region, it is our hospital?s policy to screen for HIV and viral Hepatitis for all patients aged 18 and over and those with ongoing risk factors. [place] Inquiry Pt receiving controlled substance: No Vital Signs: 10/23/24 14:28 10/23/24 14:33 10/23/24 16:21 Temperature 98.3 F Temperature Source Oral Pulse Rate 86 73 Pulse Rate [Right] 84 Respiratory Rate 18 Blood Pressure 155/88 H 188/91 H Blood Pressure [Right Arm] 159/88 H Blood Pressure Mean Blood Pressure Mean [Right Arm] 111 Blood Pressure Source [Right Arm] Automatic Cuff Blood Pressure Position Blood Pressure Position [Right Arm] Sitting 02 Sat by Pulse Oximetry 97 99 98 Oxygen Delivery Method Room Air Room Air Room Air 10/23/24 16:31 10/23/24 18:00 10/23/24 18:30 Temperature Temperature Source Pulse Rate 77 77 63 Pulse Rate [Right] Respiratory Rate Blood Pressure 147/88 H 165/92 H 188/101 H Blood Pressure [Right Arm] Blood Pressure Mean 110 Blood Pressure Mean [Right Arm] Blood Pressure Source [Right Arm] Blood Pressure Position Blood Pressure Position [Right Arm] 02 Sat by Pulse Oximetry 100 98 99 Oxygen Delivery Method Room Air Room Air 10/23/24 19:29 Temperature 98 F Temperature Source Oral Pulse Rate 67 Pulse Rate [Right] Respiratory Rate 16 Blood Pressure 166/95 H Blood Pressure [Right Arm] Blood Pressure Mean Blood Pressure Mean [Right Arm] Blood Pressure Source [Right Arm] Blood Pressure Position Sitting Blood Pressure Position [Right Arm] 02 Sat by Pulse Oximetry Oxygen Delivery Method Room Air Lab Data Lab Results 10/23/24 14:51: WBC 7.7, RBC 3.94 L, Hgb 12.3, Hct 37.6, MCV 95.4, MCH 31.2, MCHC 32.7, RDW 12.4, Plt Count 351, MPV 10.2, Neut % (Auto) 48.3, Lymph % (Auto) 36.4, [place] % (Auto) 10.9 H, Eos % (Auto) 3.0, Baso % (Auto) 1.3, Neut # (Auto) 3.7, Lymph # (Auto) 2.8, [place] # (Auto) 0.8, Eos # (Auto) 0.2, Baso # (Auto) 0.1, Sodium 140, Potassium 4.1, Chloride 105, Carbon Dioxide 28, Anion Gap 11.1, BUN 17, Creatinine 0.80, Estimated Creat Clear 61, Estimated GFR 72, Est GFR ( Amer) 87, Glucose 111 H, Calcium 9.6, Total Bilirubin 0.3, AST 40 H, ALT 30, Alkaline Phosphatase 67, Total Protein 7.4, Albumin 4.6, Globulin 2.8, Albumin/Globulin Ratio 1.6, Lipase 62 10/23/24 15:58: Lactate 0.7 10/23/24 16:49: Urine Color Yellow, Urine Appearance Clear, Urine pH 6.0, Ur Specific Douglas 1.015, Urine Protein Negative, Urine Glucose (UA) Negative, Urine Ketones Negative, Urine Blood Negative, Urine Nitrate Negative, Urine Bilirubin Negative, Urine Urobilinogen 0.2, Ur Leukocyte Esterase Negative, Urine RBC None, Urine WBC Occasional, Ur Squamous Epith Cells 5-10, Urine Bacteria Trace 10/23/24 14:51 10/23/24 14:51 Orders (Tests/Meds): ED MEDICATIONS Discontinued Medications Generic Name Dose Route Start Last Admin Trade Name Freq PRN Reason Stop Dose Admin Diazepam 5 mg 10/23/24 14:49 10/23/24 15:27 Diazepam 5mg Tablet PO 10/23/24 14:50 5 mg ONCE ONE Administration Iopamidol 75 ml 10/23/24 17:20 10/23/24 17:38 Iopamidol-370 (76%);100ml Bottle IV 10/23/24 17:21 Not Given ONCE ONE Sodium Chloride 10 ml 10/23/24 17:20 10/23/24 17:37 Sodium Chloride 0.9% 10ml Syr (Rad Only) IV 10/23/24 17:21 Not Given ONCE ONE ORDERS Category Date Time Status CT abdomen pelvis wo con Stat Cat Scan 10/23/24 14:40 Completed CBC w/Auto Diff [Complete Blood Count Auto Diff] Stat Lab 10/23/24 14:51 Completed CMP [Comprehensive Metabolic Panel] Stat Lab 10/23/24 14:51 Completed Lactic Acid Stat Lab 10/23/24 15:58 Completed Lipase Stat Lab 10/23/24 14:51 Completed UA [Urinalysis and Microscopic] Stat Lab 10/23/24 16:49 Completed ECG Data Tracing #1: I reviewed this ECG and interpreted as documented below: EKG interpreted by me personally. Normal sinus rhythm. No ST elevation or depression. QTc normal at 401, AR interval normal at 139. Medical Decision Narrative: Diamond Damon is a 63Y female with a history of COPD, UTI, genital herpes, TIA, generalized anxiety disorder, recurrent UTIs, cholecystectomy, appendectomy who presents to the emergency department for complaints of lower abdominal pain over the last several days that is worsened with intercourse. Patient reports right lower quadrant and suprapubic pain after intercourse with some intermittent vaginal bleeding but no vaginal discharge. She also reports that she has recurrent UTIs has had some burning with urination and believes she may not have cleared her last UTI. She states that she has had a history of ovarian cyst in the past has had her left ovary removed as a result. She states that the pain in her abdomen feels similar to that. 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 She forgot to poultry picker her regularly prescribed medication on Wednesday and has not had regular doses of her medications over the weekend. On arrival,Patient is mildly hypertensive, heart rate within norm limits, breathing comfortably on room air with oxygen saturation 99% SpO2. Afebrile. Physical exam, stated above, revealed an anxious appearing Female in no acute respiratory distress. She has suprapubic and right lower quadrant abdominal tenderness with some mild guarding in the suprapubic region. Cardiopulmonary exam is unremarkable. She is GCS 15 with no focal neurological deficits and is speaking in full coherent sentences. Differential diagnosis includes, but is not limited to: UTI, dyspareunia, vaginal atrophy, diverticulitis, electrolyte derangement, among others. Workup in the emergency department included: CBC with differential, CMP, lipase, urinalysis, CT abdomen pelvis with IV contrast. Patient is anxious here in the emergency department and has missed her home medication. Will give her her home dose of 5 mg of diazepam. Patient's workup showed no leukocytosis, no anemia, electrolytes within normal limits, mild elevation of AST to 40 but otherwise unremarkable nonactionable, lipase normal at 62. At this time, urinalysis is pending. CT abdomen pelvis with IV contrast is pending. It is felt the patient's pain with intercourse could be related to vaginal atrophy and she would benefit from follow-up with a vp scientific. Will go ahead and refer to gynecology. the patient's care was handed off to the oncoming physician, Dr. Marc, pending completion of her CT scan and urinalysis. Patient's final disposition is to be determined by the oncoming physician. <Viktoriya Marc, DO - Last Filed: 10/23/24 23:24> Vital Signs: 10/23/24 14:28 10/23/24 14:33 10/23/24 16:21 Temperature 98.3 F Temperature Source Oral Pulse Rate 86 73 Pulse Rate [Right] 84 Respiratory Rate 18 Blood Pressure 155/88 H 188/91 H Blood Pressure [Right Arm] 159/88 H Blood Pressure Mean Blood Pressure Mean [Right Arm] 111 Blood Pressure Source [Right Arm] Automatic Cuff Blood Pressure Position Blood Pressure Position [Right Arm] Sitting 02 Sat by Pulse Oximetry 97 99 98 Oxygen Delivery Method Room Air Room Air Room Air 10/23/24 16:31 10/23/24 18:00 10/23/24 18:30 Temperature Temperature Source Pulse Rate 77 77 63 Pulse Rate [Right] Respiratory Rate Blood Pressure 147/88 H 165/92 H 188/101 H Blood Pressure [Right Arm] Blood Pressure Mean 110 Blood Pressure Mean [Right Arm] Blood Pressure Source [Right Arm] Blood Pressure Position Blood Pressure Position [Right Arm] 02 Sat by Pulse Oximetry 100 98 99 Oxygen Delivery Method Room Air Room Air 10/23/24 19:29 Temperature 98 F Temperature Source Oral Pulse Rate 67 Pulse Rate [Right] Respiratory Rate 16 Blood Pressure 166/95 H Blood Pressure [Right Arm] Blood Pressure Mean Blood Pressure Mean [Right Arm] Blood Pressure Source [Right Arm] Blood Pressure Position Sitting Blood Pressure Position [Right Arm] 02 Sat by Pulse Oximetry Oxygen Delivery Method Room Air Lab Data Lab Results 10/23/24 14:51: WBC 7.7, RBC 3.94 L, Hgb 12.3, Hct 37.6, MCV 95.4, MCH 31.2, MCHC 32.7, RDW 12.4, Plt Count 351, MPV 10.2, Neut % (Auto) 48.3, Lymph % (Auto) 36.4, [place] % (Auto) 10.9 H, Eos % (Auto) 3.0, Baso % (Auto) 1.3, Neut # (Auto) 3.7, Lymph # (Auto) 2.8, [place] # (Auto) 0.8, Eos # (Auto) 0.2, Baso # (Auto) 0.1, Sodium 140, Potassium 4.1, Chloride 105, Carbon Dioxide 28, Anion Gap 11.1, BUN 17, Creatinine 0.80, Estimated Creat Clear 61, Estimated GFR 72, Est GFR ( Amer) 87, Glucose 111 H, Calcium 9.6, Total Bilirubin 0.3, AST 40 H, ALT 30, Alkaline Phosphatase 67, Total Protein 7.4, Albumin 4.6, Globulin 2.8, Albumin/Globulin Ratio 1.6, Lipase 62 10/23/24 15:58: Lactate 0.7 10/23/24 16:49: Urine Color Yellow, Urine Appearance Clear, Urine pH 6.0, Ur Specific Douglas 1.015, Urine Protein Negative, Urine Glucose (UA) Negative, Urine Ketones Negative, Urine Blood Negative, Urine Nitrate Negative, Urine Bilirubin Negative, Urine Urobilinogen 0.2, Ur Leukocyte Esterase Negative, Urine RBC None, Urine WBC Occasional, Ur Squamous Epith Cells 5-10, Urine Bacteria Trace Orders (Tests/Meds): ED MEDICATIONS Discontinued Medications Generic Name Dose Route Start Last Admin Trade Name Freq PRN Reason Stop Dose Admin Diazepam 5 mg 10/23/24 14:49 10/23/24 15:27 Diazepam 5mg Tablet PO 10/23/24 14:50 5 mg ONCE ONE Administration Iopamidol 75 ml 10/23/24 17:20 10/23/24 17:38 Iopamidol-370 (76%);100ml Bottle IV 10/23/24 17:21 Not Given ONCE ONE Sodium Chloride 10 ml 10/23/24 17:20 10/23/24 17:37 Sodium Chloride 0.9% 10ml Syr (Rad Only) IV 10/23/24 17:21 Not Given ONCE ONE ORDERS Category Date Time Status CT abdomen pelvis wo con Stat Cat Scan 10/23/24 14:40 Completed CBC w/Auto Diff [Complete Blood Count Auto Diff] Stat Lab 10/23/24 14:51 Completed CMP [Comprehensive Metabolic Panel] Stat Lab 10/23/24 14:51 Completed Lactic Acid Stat Lab 10/23/24 15:58 Completed Lipase Stat Lab 10/23/24 14:51 Completed UA [Urinalysis and Microscopic] Stat Lab 10/23/24 16:49 Completed Medical Decision Narrative: Diamond Damon is a 63Y female with a history of COPD, UTI, genital herpes, TIA, generalized anxiety disorder, recurrent UTIs, cholecystectomy, appendectomy who presents to the emergency department for complaints of lower abdominal pain over the last several days that is worsened with intercourse. Patient reports right lower quadrant and suprapubic pain after intercourse with some intermittent vaginal bleeding but no vaginal discharge. She also reports that she has recurrent UTIs has had some burning with urination and believes she may not have cleared her last UTI. She states that she has had a history of ovarian cyst in the past has had her left ovary removed as a result. She states that the pain in her abdomen feels similar to that. 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 She forgot to poultry picker her regularly prescribed medication on Wednesday and has not had regular doses of her medications over the weekend. On arrival,Patient is mildly hypertensive, heart rate within norm limits, breathing comfortably on room air with oxygen saturation 99% SpO2. Afebrile. Physical exam, stated above, revealed an anxious appearing Female in no acute respiratory distress. She has suprapubic and right lower quadrant abdominal tenderness with some mild guarding in the suprapubic region. Cardiopulmonary exam is unremarkable. She is GCS 15 with no focal neurological deficits and is speaking in full coherent sentences. Differential diagnosis includes, but is not limited to: UTI, dyspareunia, vaginal atrophy, diverticulitis, electrolyte derangement, among others. Workup in the emergency department included: CBC with differential, CMP, lipase, urinalysis, CT abdomen pelvis with IV contrast. Patient is anxious here in the emergency department and has missed her home medication. Will give her her home dose of 5 mg of diazepam. Patient's workup showed no leukocytosis, no anemia, electrolytes within normal limits, mild elevation of AST to 40 but otherwise unremarkable nonactionable, lipase normal at 62. At this time, urinalysis is pending. CT abdomen pelvis with IV contrast is pending. It is felt the patient's pain with intercourse could be related to vaginal atrophy and she would benefit from follow-up with a vp scientific. Will go ahead and refer to gynecology. the patient's care was handed off to the oncoming physician, Dr. Marc, pending completion of her CT scan and urinalysis. Patient's final disposition is to be determined by the oncoming physician. Monico DO: I assumed care of the patient at 1500 at time of departure of the previous provider. Patient had to have an ultrasound IV placed in her left arm after multiple failed IV attempts, multiple blown IVs. Unfortunately, this also infiltrated with administration of IV contrast for CT abdomen and pelvis. Ice pack was applied and patient was given instructions for supportive management. She was neurovascularly intact afterward with no evidence of compartment syndrome. Labs are reassuring with no significant leukocytosis, chemistry is reassuring with normal kidney function. AST is very mildly elevated but other liver enzymes or bilirubin are reassuring. Urinalysis is contaminated with squamous cells but otherwise is not concerning for infection or hematuria. CT scan demonstrates constipation that is compressing on the bladder a bit, but no other acute concerns. On reassessment, she is resting comfortably with benign abdominal exam and reassuring vital signs and cardiac telemetry. I feel she is appropriate for discharge home with instructions for bowel cleanout and close follow-up with primary care. Strict return precautions were given and she was discharged after all questions were answered. Critical Care <Leobardo Walker MD - Last Filed: 10/23/24 16:10> Critical Care Time Critical Care Time: No
[2024-10-23 15:06] LABS: Albumin Level 4.6 g/dl (3.5-5.0); Chloride 105 mmol/L (98-107)
[2024-10-23 15:07] LABS: Potassium 4.1 mmoL/L (3.5-5.1); Sodium 140 mmol/L (136-145)
[2024-10-23 15:09] LABS: Alanine Aminotransferase 30 U/L (12-78); Albumin/Globulin Ratio 1.6 (1.1-1.8); Alkaline Phosphatase 67 U/L (38-126); Anion Gap 11.1 mEq/L (5-15); Aspartate Amino Transferase 40 U/L (14-36); Bilirubin,Total 0.3 mg/dl (0.2-1.3); Blood Urea Nitrogen 17 mg/dl (7-17); Carbon Dioxide 28 mmol/L (22.0-30.0); Creatinine Clearance Estimated 61 mL/min (50-200); Estimated Glomerular Filt Rate 72 ml/min (>60); GFR (African American) 87 ML/MIN (>60); Globulin 2.8 g/dL (1.3-3.2); Total Protein,Serum 7.4 g/dl (6.3-8.2)
[2024-10-23 15:10] LABS: Calcium 9.6 mg/dl (8.4-10.2); Glucose 111 mg/dl (74-100); Lipase 62 U/L (23-300)
[2024-10-23 15:17] LABS: Basophils # 0.1 K/mm3 (0-0.2); Basophils % 1.3 % (0.1-2.0); Eosinophils # 0.2 K/mm3 (0.0-0.4); Hematocrit 37.6 % (37.0-47.0); Hemoglobin 12.3 g/dL (12.2-16.2); Lymphocytes # 2.8 K/mm3 (0.7-4.5); Lymphocytes % 36.4 % (10-50); Mean Corpuscular HGB Conc 32.7 g/dL (31.8-35.4); Mean Corpuscular Hemoglobin 31.2 pg (27.0-31.2); Mean Corpuscular Volume 95.4 fl (81-99); Mean Platelet Volume 10.2 fl (7.4-10.4); Monocytes # 0.8 K/mm3 (0.1-1.0); Monocytes % 10.9 % (1.7-9.3); Neutrophils # 3.7 K/mm3 (1.8-7.8); Neutrophils % 48.3 % (37.0-80.0); Platelet Count 351 K/mm3 (142-424); Red Blood Count 3.94 M/mm3 (4.20-5.40); Red Cell Distribution Width 12.4 % (11.5-17.5); White Blood Count 7.7 K/mm3 (4.8-10.8)
[2024-10-23] MEDS: diazePAM 5MG TABLET 5 MG PO (15:27)
--- NOTE | 2024-10-23 15:59 | PC.NURSE ---
Jay Lynn RN to bedside to perform USIV
[2024-10-23 16:35] LABS: Lactic Acid 0.7 mmol/L (0.7-2.1)
[2024-10-23 17:00] LABS: Microscopic, Urine URINE MICROSCOPIC (MICROSCOPIC)
[2024-10-23 17:33] LABS: Appearance,Urine CLEAR (Clear); Bilirubin,Urine Negative (Negative); Blood, Urine Negative (Negative); Color,Urine YELLOW (Yellow); Glucose,Urine (UA) Negative (Negative); Ketones,Urine Negative (Negative); Leukocyte Esterase,Urine Negative (Negative); Nitrate,Urine Negative (Negative); Protein,Urine Negative (Negative); Specific Gravity, Urine 1.015 (1.005-1.030); Urobilinogen,Urine 0.2 EU/dl (0.2)
[2024-10-23 17:49] LABS: Bacteria,Urine Trace /lpf; WBC,Urine Occasional #/hpf (0-3)
--- NOTE | 2024-10-23 18:17 | INFXCTL.NOTE ---
assisted pt to restroom and back to room.
== END 2024-10-23 19:31 | disposition home or self-care (01) ==
PROVIDERS: Student in an Organized Health Care Education/Training Program; Emergency Provider Emergency Medicine; PCP Nurse Practitioner Family
DX: R10.30 Lower abdominal pain, unspecified (principal); N94.10 Unspecified dyspareunia; K59.00 Constipation, unspecified; N93.0 Postcoital and contact bleeding; R30.9 Painful micturition, unspecified
CPT/HCPCS: 74176; 80053; 81001; 83605; 83690; 85025; 93005; 99284; Q9967

== ENCOUNTER 2024-11-15 14:55 | Outpatient (CLI) | payer MEDICAID, SELFPAY ==
--- NOTE | 2024-11-15 14:55 | US_ITS ---
PROCEDURE: US TRANSVAGINAL CLINICAL INDICATION: pelvic pain COMPARISON: CT CT ABDOMEN PELVIS WO CON from 10/23/2024 FINDINGS: Transvaginal sonographic images of the pelvis were obtained. UTERUS: 3.6 cm x 3.0cmx 1.2cm anteverted with a combined endometrial thickness of 1.3mm. LEFT OVARY: Surgically absent RIGHT OVARY: 0.8 cmx 0.6 cmx0.5 with a volume of 0.1ml. Right ovary is seen and appears normal. Doppler flow to right ovary is seen. There is no fluid in the cul-de-sac. IMPRESSION: 1. Anteverted, extremely small, atrophic uterus. The endometrium is thin measuring 1.3 mm 2. The left ovary is surgically absent. 3. The right ovary appears small and atrophic. 4. No fluid in the cul-de-sac Dictated by: Man Renee MD 11/15/2024 16:38 Man Renee MD in OV 11/15/2024 16:38
== END 2024-11-15 23:59 | disposition home or self-care (01) ==
LOC: RAD 14:55
PROVIDERS: PCP Nurse Practitioner Family; Visit Provider Obstetrics & Gynecology
DX: R10.2 Pelvic and perineal pain (principal); R10.9 Unspecified abdominal pain
CPT/HCPCS: 76830

== ENCOUNTER 2025-01-20 16:11 | Emergency (ER) | payer MEDICARE, MEDICAID, SELFPAY ==
[2025-01-20 16:15] VITALS: BP 154/103; PULSE 103; RESP 16; TEMP 37.4; O2SAT 96; BMI 21.1
--- NOTE | 2025-01-20 16:27 | HMH.EDGENADL ---
Discharge Plan Disposition Patient Disposition: Home, Self-Care Condition: Good Prescriptions Prescriptions: New ondansetron 4 mg tablet,disintegrating 4 mg PO Q8H PRN (Reason: nausea and vomiting) 5 Days Qty: 10 0RF No Action diclofenac sodium [Voltaren Arthritis Pain] 1 % gel 2 g topical QID Qty: 100 2RF Rx Instructions: apply to single elbow, wrist or hand; for hand includes palm/fingers/back of hand lidocaine-prilocaine 2.5-2.5 % cream 0.5 g topical ONCE valacyclovir [Valtrex] 1 gram tablet 1,000 mg PO DAILY 30 Days Qty: 30 3RF guaifenesin 600 mg tablet extended release 12hr 600 mg PO DAILY Qty: 90 2RF tizanidine 4 mg tablet PO Patient Comments: TAKE ONE TABLET BY MOUTH EVERY 8 HOURS levothyroxine 50 mcg tablet 50 mcg PO DAILY Qty: 90 0RF fenofibrate nanocrystallized 145 mg tablet See Rx Instructions .ROUTE .COMPLEX Qty: 90 2RF Dose Instruction: TAKE ONE TABLET BY MOUTH ONCE A DAY Rx Instructions: TAKE ONE TABLET BY MOUTH ONCE A DAY bupropion HCl [Wellbutrin XL] 300 mg tablet extended release 24 hr 300 mg PO DAILY Qty: 30 2RF sennosides [senna] 8.6 mg tablet See Rx Instructions .ROUTE .COMPLEX Qty: 30 2RF Dose Instruction: TAKE ONE TABLET BY MOUTH ONCE A DAY NEEDED FOR CONSTIPATION Rx Instructions: TAKE ONE TABLET BY MOUTH ONCE A DAY NEEDED FOR CONSTIPATION diazepam 5 mg tablet 5 mg PO BID PRN (Reason: anxiety) Qty: 60 0RF lidocaine 5 % adhesive patch,medicated See Rx Instructions .ROUTE .COMPLEX Qty: 30 2RF Dose Instruction: APPLY 1 PATCH TOPICALLY TO MOST PAINFUL AREA AND LEAVE ON FOR 12 HOURS THEN REMOVE AND LEAVE OFF FOR 12 HOURS Rx Instructions: APPLY 1 PATCH TOPICALLY TO MOST PAINFUL AREA AND LEAVE ON FOR 12 HOURS THEN REMOVE AND LEAVE OFF FOR 12 HOURS venlafaxine 150 mg capsule,extended release 24hr See Rx Instructions .ROUTE .COMPLEX Qty: 90 1RF Dose Instruction: TAKE ONE CAPSULE BY MOUTH ONCE A DAY Rx Instructions: TAKE ONE CAPSULE BY MOUTH ONCE A DAY polyethylene glycol 3350 [Miralax] 17 gram/dose powder 17 g PO DAILY Qty: 510 0RF benzonatate 100 mg capsule 100 mg PO BID PRN (Reason: Cough) Qty: 60 0RF doxycycline hyclate 100 mg capsule 100 mg PO BID 5 Days Qty: 10 0RF oxycodone-acetaminophen 7.5-325 mg tablet 1 tab PO DAILY Referrals Follow up/Referrals: Provider,Referral, MD [Referring] - See instructions Activity Restrictions/Add. Instructions Additional Instructions/Restrictions: I have written a prescription for a course of antibiotics as well as cough and nausea medication. As we discussed, based on your workup and symptoms at this time it appears that you are likely having a COPD exacerbation causing some of your headache, weakness, shortness of breath. Your COVID and flu test were negative. Please follow-up with your primary care doctor and additionally use your breathing treatments as prescribed as needed. Please return with any new or worsening symptoms. Clinical Impressions Clinical Impression: COPD exacerbation Print Language Print Language: Maori Discharge ED Provider: Kashmir Ly Adult HPI General Chief complaint: Weakness Stated complaint: Headache; Cough; General Weakness Time Seen by Provider: 01/20/25 16:26 Mode of Arrival: Wheelchair Source of Information: Patient Description of Symptoms (Recalled from ER Triage Doc. by RN): Patient reports weakness, headache, and ear ache x5 days. Patient has not seen PCP. Patient reports fever at home but does not have thermometer. History of Present Illness HPI narrative: The patient presents with chief complaints of ear pain, sore throat, cough, weakness, dizziness, and diarrhea. Symptoms began approximately 5-6 days ago. The patient describes their ear pain as feeling like they've been mumped, affecting both ears, and mentions that one of their eardrums is busted, though they are unsure which one. They also report a sore throat and a terrible cough, with clear sputum production. Weakness and dizziness have been experienced, along with diarrhea on and off for a couple of days. The patient reports having had fevers, though they do not have specific measurements. A headache is also reported, which came on gradually. The patient mentions being prone to bumping their head frequently, describing themselves as clumsy, but does not recall a specific head injury related to the current symptoms. They deny taking any blood thinners. The patient has not noticed any significant belly pain but reports nausea. The patient has a history of frequent minor head injuries due to clumsiness and a ruptured eardrum (unspecified which ear). When asked about exposure to illness, the patient does not provide a clear answer. They also do not mention any recent healthcare interactions or specific impacts on daily functioning. Please note that above description of symptoms, in this electronic medical record under categorization of recalled from ER triage doctor by RN are reflective of an initial nursing assessment, however, is not reflective of my full history and physical exam that was personally taken and clarified. Consequentially, this preceding description of symptoms, which may include the patient's categorized chief complaint in the EMR, do not reflect my personal clinical impression, and the ultimate description of history of present illness and patient stated complaints should be deferred to this section of the note. Unless stated otherwise or congruent with this section of the note, additional signs, symptoms, or incongruence should be interpreted as inaccurate with my clinical impression. Related Data Home Medications ?Medication ?Instructions ?Recorded ?Confirmed oxycodone-acetaminophen 7.5 mg-325 1 tab PO DAILY 06/09/24 01/16/25 mg tablet lidocaine-prilocaine 2.5 %-2.5 % 0.5 g topical ONCE 10/30/24 01/16/25 topical cream tizanidine 4 mg tablet mg PO 01/05/25 01/16/25 Previous Rx's ?Medication ?Instructions ?Recorded polyethylene glycol 3350 17 17 g PO DAILY #510 grams 06/12/24 gram/dose oral powder (Miralax) diclofenac sodium 1 % topical gel 2 g topical QID #100 grams 07/19/24 (Voltaren Arthritis Pain) levothyroxine 50 mcg tablet 50 mcg PO DAILY #90 tabs 10/06/24 fenofibrate nanocrystallized 145 See Rx Instructions .Route 10/13/24 mg tablet .COMPLEX #90 tabs bupropion HCl 300 mg 24 hr tablet, 300 mg PO DAILY #30 tabs 10/21/24 extended release (Wellbutrin XL) guaifenesin 600 mg tablet, 600 mg PO DAILY #90 tabs 10/31/24 extended release 12 hr valacyclovir 1 gram tablet 1,000 mg PO DAILY 30 days #30 tabs 10/31/24 (Valtrex) sennosides 8.6 mg tablet (senna) See Rx Instructions .Route 11/14/24 .COMPLEX #30 tabs diazepam 5 mg tablet 5 mg PO BID PRN anxiety #60 tabs 12/22/24 lidocaine 5 % topical patch See Rx Instructions .Route 12/25/24 .COMPLEX #30 patches venlafaxine 150 mg See Rx Instructions .Route 01/10/25 capsule,extended release 24 hr .COMPLEX #90 caps ondansetron 4 mg disintegrating 4 mg PO Q8H PRN nausea and 01/20/25 tablet vomiting 5 days #10 tabs benzonatate 100 mg capsule 100 mg PO BID PRN Cough #60 caps 01/21/25 doxycycline hyclate 100 mg capsule 100 mg PO BID 5 days #10 caps 01/21/25 Allergies Allergy/AdvReac Type Severity Reaction Status Date / Time calamine Allergy Verified 01/16/25 14:37 meloxicam (From Mobic) Allergy Verified 01/16/25 14:37 acetaminophen (From Vicodin) AdvReac Mild Verified 01/16/25 14:37 Antihistamines - Alkylamine AdvReac Mild Verified 01/16/25 14:37 aripiprazole (From Abilify) AdvReac Mild Verified 01/16/25 14:37 bacitracin (From Neosporin AdvReac Mild Verified 01/16/25 14:37 ([id number])) brexpiprazole (From Rexulti) AdvReac Mild Verified 01/16/25 14:37 buspirone (From BuSpar) AdvReac Mild Verified 01/16/25 14:37 carbamazepine (From Tegretol) AdvReac Mild Verified 01/16/25 14:37 cariprazine (From Vraylar) AdvReac Mild Verified 01/16/25 14:37 celecoxib (From Celebrex) AdvReac Mild Verified 01/16/25 14:37 chlordiazepoxide (From AdvReac Mild Verified 01/16/25 14:37 Librium) chlorpromazine (From AdvReac Mild Verified 01/16/25 14:37 Thorazine) clomipramine (From Anafranil) AdvReac Mild Verified 01/16/25 14:37 clonazepam (From Klonopin) AdvReac Mild Verified 01/16/25 14:37 codeine AdvReac Mild Verified 01/16/25 14:37 cyclobenzaprine (From AdvReac Mild Verified 01/16/25 14:37 Flexeril) desipramine (From Norpramin) AdvReac Mild Verified 01/16/25 14:37 desvenlafaxine (From Pristiq) AdvReac Mild Verified 01/16/25 14:37 dexmedetomidine AdvReac Mild Verified 01/16/25 14:37 divalproex sodium (From AdvReac Mild Verified 01/16/25 14:37 Depakote) duloxetine (From Cymbalta) AdvReac Mild Verified 01/16/25 14:37 eszopiclone (From Lunesta) AdvReac Mild Verified 01/16/25 14:37 fentanyl AdvReac Mild Verified 01/16/25 14:37 fluoxetine (From Prozac) AdvReac Mild Verified 01/16/25 14:37 hydrocodone (From Vicodin) AdvReac Mild Verified 01/16/25 14:37 ibuprofen AdvReac Mild Verified 01/16/25 14:37 lorazepam (From Ativan) AdvReac Mild Verified 01/16/25 14:37 lurasidone (From Latuda) AdvReac Mild Verified 01/16/25 14:37 meperidine (From Demerol) AdvReac Mild Verified 01/16/25 14:37 methadone AdvReac Mild Verified 01/16/25 14:37 mirtazapine (From Remeron) AdvReac Mild Verified 01/16/25 14:37 morphine AdvReac Mild Verified 01/16/25 14:37 neomycin (From Neosporin AdvReac Mild Verified 01/16/25 14:37 ([id number])) paroxetine (From Paxil) AdvReac Mild Verified 01/16/25 14:37 perphenazine (From Trilafon) AdvReac Mild Verified 01/16/25 14:37 polymyxin B (From Neosporin AdvReac Mild Verified 01/16/25 14:37 ([id number])) propranolol (From Inderal [place]) AdvReac Mild Verified 01/16/25 14:37 quetiapine (From Seroquel) AdvReac Mild Verified 01/16/25 14:37 risperidone (From Risperdal) AdvReac Mild Verified 01/16/25 14:37 sertraline (From Zoloft) AdvReac Mild Verified 01/16/25 14:37 temazepam (From Restoril) AdvReac Mild Verified 01/16/25 14:37 topiramate (From Topamax) AdvReac Mild Verified 01/16/25 14:37 tramadol (From Ultram) AdvReac Mild Verified 01/16/25 14:37 vortioxetine (From AdvReac Mild Verified 01/16/25 14:37 Trintellix) ziprasidone (From Geodon) AdvReac Mild Verified 01/16/25 14:37 zolpidem (From Ambien) AdvReac Mild Verified 01/16/25 14:37 steroids Allergy Mild Uncoded 01/16/25 14:37 PFSH [facility] Disclaimer: The information contained in this section may have been updated after the patient was seen, as this information can be updated by other users. Medical History (Updated 01/21/25 @ 22:07 by Kashmir Ly MD) Asthma Dyspnea on exertion History of multiple strokes Breast cancer screening Frequent falls Hyperlipemia Sjogrens syndrome Muscle spasm Dystonia Surgical History History of left oophorectomy History of endometrial ablation H/O cervical spine surgery H/O hernia repair History of tonsillectomy Hx of appendectomy History of cholecystectomy History of arthroplasty of left ankle Family History Other Cancer Coronary artery disease Diabetes FHx: mental illness Hypertension Substance abuse Thyroid disorder Social History Smoking Status: Never smoker alcohol intake: current alcohol intake frequency: a few times a month substance use type: denies use, former substance user, marijuana, crack/cocaine, opiates and prescription drug current occupational status: disabled Travel in the last 8 weeks?: None household members: significant other housing: house marital status: Have you lived/traveled outside [place] in past 30 days?: No Contact w/someone who lives/traveled outside [place] past 30 days?: No Exposure to someone with infectious disease in past 14 days?: No Do you have a fever (greater than 100.4 F or 38 C)?: No Have you tested positive for COVID-19?: No Exposed to someone with COVID-19 in past 14 days?: No Do you have a sore throat?: No Do you have a cough?: Yes Do you have any weakness?: No Do you have any diarrhea?: No Are you experiencing any unusual bleeding?: No Do you have any muscle aches/pain?: No Do you have any abdominal pain?: No Are you experiencing loss of taste or smell?: No Other Medical History Have you received the Pneumonia Vaccine: No ROS Obtained: Yes other As per HPI Physical Exam General General appearance: alert and in no apparent distress Head Head exam: atraumatic and normocephalic Eye Eye exam: Present normal appearance Neck Neck exam: Present normal inspection Chest Chest inspection: Present normal inspection and symmetric chest wall rise Respiratory Respiratory exam: Present normal lung sounds bilaterally; Absent respiratory distress Cardiovascular Cardiovascular exam: Present regular rate and normal rhythm Abdominal Exam Abdominal exam: Present soft Neurological Exam Neurological exam: Present alert and oriented X3 Psychiatric Psychiatric exam: Present normal affect and normal mood Skin Skin exam: Present warm and dry Other Other exam information: Expiratory wheezing Medical Decision Making Medical Records Medical records reviewed: Yes I reviewed the patient's medical records. Screening: Per USPSTF and CDC recommendations, given the prevalence of disease in our region, it is our hospital?s policy to screen for HIV and viral Hepatitis for all patients aged 18 and over and those with ongoing risk factors. [place] Inquiry Pt receiving controlled substance: No Vital Signs: 01/20/25 16:15 01/20/25 17:00 01/20/25 18:00 Temperature 99.4 F Temperature Source Temporal Artery Scan Pulse Rate 95 H 81 Pulse Rate [Right] 103 H Respiratory Rate 16 20 20 Blood Pressure 145/90 H 152/77 H Blood Pressure [Right Arm] 154/103 H Blood Pressure Mean 100 102 Blood Pressure Mean [Right Arm] 120 Blood Pressure Source Blood Pressure Position 02 Sat by Pulse Oximetry 96 95 96 Oxygen Delivery Method Room Air 01/20/25 18:32 01/20/25 19:00 01/20/25 20:00 Temperature 97.9 F Temperature Source Oral Pulse Rate 83 89 74 Pulse Rate [Right] Respiratory Rate 20 30 H 20 Blood Pressure 158/88 H 152/70 H Blood Pressure [Right Arm] Blood Pressure Mean Blood Pressure Mean [Right Arm] Blood Pressure Source Automatic Cuff Blood Pressure Position Sitting 02 Sat by Pulse Oximetry 93 L 97 Oxygen Delivery Method Room Air Lab Data Lab Results 01/20/25 16:30: WBC 7.5, RBC 4.21, Hgb 13.5, Hct 40.2, MCV 95.5, MCH 32.1 H, MCHC 33.6, RDW 12.9, Plt Count 416, MPV 10.0, Neut % (Auto) 69.8, Lymph % (Auto) 16.9, [place] % (Auto) 11.6 H, Eos % (Auto) 0.4, Baso % (Auto) 0.9, Neut # (Auto) 5.2, Lymph # (Auto) 1.3, [place] # (Auto) 0.9, Eos # (Auto) 0.0, Baso # (Auto) 0.1, Sodium 132 L, Potassium 4.1, Chloride 97 L, Carbon Dioxide 27, Anion Gap 12.1, BUN 16, Creatinine 0.90, Estimated Creat Clear 51, Estimated GFR 63, Est GFR ( Amer) 76, Glucose 119 H, Calcium 9.8, Magnesium 1.7, Total Bilirubin 0.4, AST 46 H, ALT 34, Alkaline Phosphatase 67, Total Protein 8.8 H, Albumin 5.1 H, Globulin 3.7 H, Albumin/Globulin Ratio 1.4 01/20/25 17:00: SARS-CoV-2 (PCR) Not detected, Influenza A Untype (PCR) Not detected, Influenza Type B (PCR) Not detected 01/20/25 17:39: Urine Color Yellow, Urine Appearance Clear, Urine pH 7.0, Ur Specific [place] 1.015, Urine Protein Negative, Urine Glucose (UA) Negative, Urine Ketones Negative, Urine Blood Negative, Urine Nitrate Negative, Urine Bilirubin Negative, Urine Urobilinogen 0.2, Ur Leukocyte Esterase 2+ A, Urine RBC Occasional, Urine WBC 10-20, Ur Squamous Epith Cells 5-10, Urine Bacteria 2+ 01/20/25 16:30 01/20/25 16:30 Orders (Tests/Meds): ED MEDICATIONS Discontinued Medications Generic Name Dose Route Start Last Admin Trade Name Freq PRN Reason Stop Dose Admin Acetaminophen 1,000 mg 01/20/25 16:37 01/20/25 16:53 Acetaminophen 500mg Tab PO 01/20/25 16:38 1,000 mg ONCE ONE Administration Albuterol/Ipratropium 3 ml 01/20/25 18:05 01/20/25 18:15 Ipratropium/Albuterol 3 Ml Neb IH 01/20/25 18:06 3 ml ONCE ONE Administration Doxycycline Hyclate 100 mg 01/20/25 19:54 01/20/25 20:01 Doxycycline Hycl 100 Mg Tablet PO 01/20/25 19:55 100 mg ONCE ONE Administration Lactated Ringer's 1,000 mls @ 999 mls/hr 01/20/25 16:37 01/20/25 16:53 Lactated Ringer's 1000 Ml Bag IV 01/20/25 17:37 999 mls/hr .Q1H1M ONE Administration Iopamidol 80 ml 01/20/25 18:22 01/20/25 18:23 Iopamidol-370 (76%);100ml Bottle IV 01/20/25 18:23 80 ml ONCE ONE Administration Ketorolac Tromethamine 15 mg 01/20/25 16:37 01/20/25 16:53 Ketorolac 30mg/Ml Vial IV 01/20/25 16:38 15 mg ONCE ONE Administration Methylprednisolone Sodium Succinate 80 mg 01/20/25 18:05 01/20/25 18:14 Methylprednisolone Sod Succ 125mg Vial IV 01/20/25 18:06 80 mg ONCE ONE Administration Sodium Chloride 50 ml 01/20/25 18:22 01/20/25 18:23 0.9 % Sodium Chloride 50 Ml Vial IV 01/20/25 18:23 50 ml ONCE ONE Administration Sodium Chloride 10 ml 01/20/25 18:22 01/20/25 18:23 Sodium Chloride 0.9% 10ml Syr (Rad Only) IV 01/20/25 18:23 10 ml ONCE ONE Administration ORDERS Category Date Time Status CT angio head Stat Cat Scan 01/20/25 18:[address] angio neck Stat Cat Scan 01/20/25 18:[address] head/brain wo con Stat Cat Scan 01/20/25 18:05 Completed XR chest portable Stat Exams 01/20/25 16:37 Completed CBC w/Auto Diff [Complete Blood Count Auto Diff] Stat Lab 01/20/25 16:30 Completed CMP [Comprehensive Metabolic Panel] Stat Lab 01/20/25 16:30 Completed MAG [Magnesium] Stat Lab 01/20/25 16:30 Completed Rapid PCR Covid and Flu A/B Stat Lab 01/20/25 17:00 Completed UA [Urinalysis and Microscopic] Stat Lab 01/20/25 17:39 Completed Urine Culture Stat Micro 01/20/25 17:39 Completed Medical Decision Narrative: Patient with history and exam per above presenting for evaluation of headache, shortness of breath, fatigue Diagnoses considered include COPD exacerbation, pulmonary embolism, intracranial hemorrhage, among others ED workup and treatment included: ED MEDICATIONS Discontinued Medications Generic Name Dose Route Start Last Admin Trade Name Freq PRN Reason Stop Dose Admin Acetaminophen 1,000 mg 01/20/25 16:37 01/20/25 16:53 Acetaminophen 500mg Tab PO 01/20/25 16:38 1,000 mg ONCE ONE Administration Albuterol/Ipratropium 3 ml 01/20/25 18:05 01/20/25 18:15 Ipratropium/Albuterol 3 Ml Neb IH 01/20/25 18:06 3 ml ONCE ONE Administration Doxycycline Hyclate 100 mg 01/20/25 19:54 01/20/25 20:01 Doxycycline Hycl 100 Mg Tablet PO 01/20/25 19:55 100 mg ONCE ONE Administration Lactated Ringer's 1,000 mls @ 999 mls/hr 01/20/25 16:37 01/20/25 16:53 Lactated Ringer's 1000 Ml Bag IV 01/20/25 17:37 999 mls/hr .Q1H1M ONE Administration Iopamidol 80 ml 01/20/25 18:22 01/20/25 18:23 Iopamidol-370 (76%);100ml Bottle IV 01/20/25 18:23 80 ml ONCE ONE Administration Ketorolac Tromethamine 15 mg 01/20/25 16:37 01/20/25 16:53 Ketorolac 30mg/Ml Vial IV 01/20/25 16:38 15 mg ONCE ONE Administration Methylprednisolone Sodium Succinate 80 mg 01/20/25 18:05 01/20/25 18:14 Methylprednisolone Sod Succ 125mg Vial IV 01/20/25 18:06 80 mg ONCE ONE Administration Sodium Chloride 50 ml 01/20/25 18:22 01/20/25 18:23 0.9 % Sodium Chloride 50 Ml Vial IV 01/20/25 18:23 50 ml ONCE ONE Administration Sodium Chloride 10 ml 01/20/25 18:22 01/20/25 18:23 Sodium Chloride 0.9% 10ml Syr (Rad Only) IV 01/20/25 18:23 10 ml ONCE ONE Administration ORDERS Category Date Time Status CT angio head Stat Cat Scan 01/20/25 18:[address] angio neck Stat Cat Scan 01/20/25 18:[address] head/brain wo con Stat Cat Scan 01/20/25 18:05 Completed XR chest portable Stat Exams 01/20/25 16:37 Completed CBC w/Auto Diff [Complete Blood Count Auto Diff] Stat Lab 01/20/25 16:30 Completed CMP [Comprehensive Metabolic Panel] Stat Lab 01/20/25 16:30 Completed MAG [Magnesium] Stat Lab 01/20/25 16:30 Completed Rapid PCR Covid and Flu A/B Stat Lab 01/20/25 17:00 Completed UA [Urinalysis and Microscopic] Stat Lab 01/20/25 17:39 Completed Urine Culture Stat Micro 01/20/25 17:39 Completed Labs were independently interpreted by me, significant for no leukocytosis, COVID-negative, asymptomatic bacteriuria Imaging was independently visualized and interpreted by me, significant for no acute findings Please refer to radiology report for full details. My clinical impression at this time is most consistent with COPD exacerbation with associated frontal tension type headache. I discussed my clinical impression with patient and answered all questions. At this time, the evidence for any other entities in the differential is insufficient to warrant any further testing or ED observation. This was explained to the patient. The patient was advised that persistent or worsening symptoms require further evaluation. Critical Care Critical Care Time Critical Care Time: No
--- NOTE | 2025-01-20 16:28 | ECG_ITS ---
APPROVED REPORT Exam: Resting ECG HR:91 bpm ECG Measurements Heart Rate 91 AXES NM 135 P -53 QRSd 86 QRS 91 QT 333 T 3 QTc 381 Conclusion ECTOPIC ATRIAL RHYTHM BORDERLINE RIGHT AXIS DEVIATION [QRS AXIS > 90] ABNORMAL RHYTHM ECG Electronically signed by : DEANDRE MACK, 01/20/2025 23:00:26
--- NOTE | 2025-01-20 16:37 | XR_ITS ---
PROCEDURE INFORMATION: Exam: XR Chest Exam date and time: 01/20/2025 4:52 PM Age: 64 years old Clinical indication: Cough; Additional info: Cough, fever, concern for pna TECHNIQUE: Imaging protocol: Radiologic exam of the chest. Views: 1 view. COMPARISON: CT ABDOMEN PELVIS WO CON 10/23/2024 5:19 PM FINDINGS: Lungs: Unremarkable. No consolidation. Pleural spaces: Unremarkable. No pleural effusion. No pneumothorax. Heart/Mediastinum: Unremarkable. No cardiomegaly. Bones/joints: Unremarkable. IMPRESSION: No acute findings.
[2025-01-20] MEDS: ACETAMINOPHEN 500MG TAB 1000 MG PO (16:53)
[2025-01-20] MEDS: LACTATED RINGERS 1000ML 1,000 ML 999 ML IV (16:53)
[2025-01-20] MEDS: KETOROLAC 30MG/ML VIAL 15 MG IV (16:53)
[2025-01-20 16:55] LABS: Basophils # 0.1 K/mm3 (0-0.2); Basophils % 0.9 % (0.1-2.0); Eosinophils % 0.4 % (0.1-12.0); Hematocrit 40.2 % (37.0-47.0); Hemoglobin 13.5 g/dL (12.2-16.2); Immature Granulocytes # 0.03 10^3uL; Immature Granulocytes % 0.4 %; Lymphocytes # 1.3 K/mm3 (0.7-4.5); Lymphocytes % 16.9 % (10-50); Mean Corpuscular HGB Conc 33.6 g/dL (31.8-35.4); Mean Corpuscular Hemoglobin 32.1 pg (27.0-31.2); Mean Corpuscular Volume 95.5 fl (81-99); Monocytes # 0.9 K/mm3 (0.1-1.0); Monocytes % 11.6 % (1.7-9.3); Neutrophils # 5.2 K/mm3 (1.8-7.8); Neutrophils % 69.8 % (37.0-80.0); Nucleated Red Blood Cells # 0 10^3/uL; Nucleated Red Blood Cells % 0 %; Platelet Count 416 K/mm3 (142-424); Red Blood Count 4.21 M/mm3 (4.20-5.40); Red Cell Distribution Width 12.9 % (11.5-17.5); Red Cell Distribution Width-SD 45.5 fL; White Blood Count 7.5 K/mm3 (4.8-10.8)
[2025-01-20 16:59] LABS: Chloride 97 mmol/L (98-107)
[2025-01-20 17:00] VITALS: BP 145/90; PULSE 95; RESP 20; O2SAT 95
[2025-01-20 17:00] LABS: Albumin Level 5.1 g/dl (3.5-5.0); Potassium 4.1 mmoL/L (3.5-5.1); Sodium 132 mmol/L (136-145)
[2025-01-20 17:02] LABS: Blood Urea Nitrogen 16 mg/dl (7-17); Creatinine Clearance Estimated 51 mL/min (50-200); Estimated Glomerular Filt Rate 63 ml/min (>60); GFR (African American) 76 ML/MIN (>60)
[2025-01-20 17:03] LABS: Coronavirus 19, PCR Not Detected (NotDetected); Influenza A, PCR Not Detected (NotDetected); Influenza B, PCR Not Detected (NotDetected)
[2025-01-20 17:03] LABS: Alanine Aminotransferase 34 U/L (12-78); Albumin/Globulin Ratio 1.4 (1.1-1.8); Alkaline Phosphatase 67 U/L (38-126); Anion Gap 12.1 mEq/L (5-15); Aspartate Amino Transferase 46 U/L (14-36); Bilirubin,Total 0.4 mg/dl (0.2-1.3); Calcium 9.8 mg/dl (8.4-10.2); Carbon Dioxide 27 mmol/L (22.0-30.0); Globulin 3.7 g/dL (1.3-3.2); Glucose 119 mg/dl (74-100); Total Protein,Serum 8.8 g/dl (6.3-8.2)
[2025-01-20 17:14] LABS: Magnesium 1.7 mg/dl (1.6-2.3)
[2025-01-20 17:53] LABS: Microscopic, Urine URINE MICROSCOPIC (MICROSCOPIC)
[2025-01-20 17:54] LABS: Appearance,Urine CLEAR (Clear); Bilirubin,Urine Negative (Negative); Blood, Urine Negative (Negative); Color,Urine YELLOW (Yellow); Glucose,Urine (UA) Negative (Negative); Ketones,Urine Negative (Negative); Leukocyte Esterase,Urine 2+ (Negative); Nitrate,Urine Negative (Negative); Protein,Urine Negative (Negative); Specific Gravity, Urine 1.015 (1.005-1.030); Urobilinogen,Urine 0.2 EU/dl (0.2)
[2025-01-20 18:00] VITALS: BP 152/77; PULSE 81; RESP 20; O2SAT 96
[2025-01-20 18:00] LABS: RBC,Urine Occasional #/hpf (0-3)
[2025-01-20 18:01] LABS: Bacteria,Urine 2+ /lpf
--- NOTE | 2025-01-20 18:05 | CT_ITS ---
PROCEDURE INFORMATION: Exam: CT Head Without Contrast Exam date and time: 01/20/2025 6:22 PM Age: 64 years old Clinical indication: Injury or trauma; Other: [place], history of possible trauma TECHNIQUE: Imaging protocol: Computed tomography of the head without contrast. Radiation optimization: All CT scans at this facility use at least one of these dose optimization techniques: automated exposure control; mA and/or kV adjustment per patient size (includes targeted exams where dose is matched to clinical indication); or iterative reconstruction. COMPARISON: MR ANGIO HEAD WO CON 10/03/2024 3:52 PM FINDINGS: Brain: Periventricular and subcortical small vessel ischemic changes appear chronic. Mild atrophy associated. No acute hemorrhage, mass effect, midline shift, or extra-axial fluid collection. Cerebral ventricles: No ventriculomegaly. Paranasal sinuses: Visualized sinuses are unremarkable. No fluid levels. Mastoid air cells: Visualized mastoid air cells are well aerated. Bones: Unremarkable. No acute fracture. Soft tissues: Unremarkable. IMPRESSION: 1. Atrophy more than expected for age. 2. No acute traumatic injury identified.
--- NOTE | 2025-01-20 18:07 | CT_ITS ---
PROCEDURE INFORMATION: Exam: CTA Head With Contrast, Arteriography Exam date and time: 01/20/2025 6:23 PM Age: 64 years old Clinical indication: Injury or trauma; Other: FRANKLIN, HX possible trauma, HX CVA TECHNIQUE: Imaging protocol: Computed tomographic angiography of the head with contrast. Exam focused on the arteries. 3D rendering (Not supervised by radiologist): MIP and/or 3D reconstructed images were created by the technologist. Radiation optimization: All CT scans at this facility use at least one of these dose optimization techniques: automated exposure control; mA and/or kV adjustment per patient size (includes targeted exams where dose is matched to clinical indication); or iterative reconstruction. Contrast material: ISO 370; Contrast volume: 80 ml; Contrast route: INTRAVENOUS (IV); COMPARISON: MR ANGIO HEAD WO CON 10/03/2024 3:52 PM FINDINGS: ANTERIOR CIRCULATION: Right internal carotid artery: Intracranial segment is patent with no significant stenosis. No aneurysm. Right middle cerebral artery: No occlusion or significant stenosis. No aneurysm. Right anterior cerebral artery: No occlusion or significant stenosis. No aneurysm. Left internal carotid artery: Intracranial segment is patent with no significant stenosis. No aneurysm. Left middle cerebral artery: No occlusion or significant stenosis. No aneurysm. Left anterior cerebral artery: No occlusion or significant stenosis. No aneurysm. POSTERIOR CIRCULATION: Right vertebral artery: No occlusion or significant stenosis. No aneurysm. Left vertebral artery: No occlusion or significant stenosis. No aneurysm. Basilar artery: No occlusion or significant stenosis. No aneurysm. Right posterior cerebral artery: No occlusion or significant stenosis. No aneurysm. Left posterior cerebral artery: No occlusion or significant stenosis. No aneurysm. Brain: No definite mass, mass effect, or midline shift. Cerebral ventricles: No ventriculomegaly. Bones/joints: Unremarkable. No acute fracture. Soft tissues: Unremarkable. IMPRESSION: No large vessel stenosis or occlusion.
--- NOTE | 2025-01-20 18:07 | CT_ITS ---
PROCEDURE INFORMATION: Exam: CTA Neck With Contrast Exam date and time: 01/20/2025 6:23 PM Age: 64 years old Clinical indication: Injury or trauma; Other: FRANKLIN, HX possible trauma, HX CVA TECHNIQUE: Imaging protocol: Computed tomographic angiography of the neck with contrast. Exam focused on the cervical segments of the vasculature. 3D rendering (Not supervised by radiologist): MIP and/or 3D reconstructed images were created by the technologist. Radiation optimization: All CT scans at this facility use at least one of these dose optimization techniques: automated exposure control; mA and/or kV adjustment per patient size (includes targeted exams where dose is matched to clinical indication); or iterative reconstruction. Contrast material: ISO 370; Contrast volume: 80 ml; Contrast route: INTRAVENOUS (IV); COMPARISON: MR ANGIO NECK WO CON 10/03/2024 3:52 PM FINDINGS: Right common carotid artery: No stenosis. No dissection or occlusion. Right internal carotid artery: Mild right ICA stenosis at the bulb, less than 50% by NASCET criteria. Right external carotid artery: No occlusion or stenosis of the origin. Left common carotid artery: No stenosis. No dissection or occlusion. Left internal carotid artery: Mild left ICA stenosis at the bulb, less than 50% by NASCET criteria. Left external carotid artery: No occlusion or stenosis of the origin. Right vertebral artery: No stenosis. No dissection or occlusion. Left vertebral artery: No stenosis. No dissection or occlusion. Soft tissues: Normal. No significant soft tissue swelling. Bones/joints: Osseous fusion C5-C6, possible block vertebrae. IMPRESSION: 1. Mild right ICA stenosis at the bulb, less than 50% by NASCET criteria. 2. Mild left ICA stenosis at the bulb, less than 50% by NASCET criteria. 3. Osseous fusion C5-C6, possible block vertebrae. REFERENCES: NASCET CRITERIA. The degree of stenosis in the cervical segment of the internal carotid artery is based on NASCET criteria. Normal is no stenosis. Mild is less than 50% stenosis. Moderate is 50-69% stenosis. Severe is 70% to 99% stenosis. Total occlusion is no detectable patent lumen.
[2025-01-20] MEDS: METHYLPREDNISOLONE SOD SUCC 125MG VIAL 80 MG IV (18:14)
[2025-01-20] MEDS: IPRATROPIUM/ALBUTEROL 3 ML NEB IH (18:15)
--- NOTE | 2025-01-20 18:15 | PC.NURSE ---
pt to rad at this time
[2025-01-20] MEDS: IOPAMIDOL-370 (76%);100ML BOTTLE 80 ML IV (18:23)
[2025-01-20] MEDS: SODIUM CHLORIDE 0.9% 10ML SYR (RAD ONLY) 10 ML IV (18:23)
[2025-01-20] MEDS: 0.9 % SODIUM CHLORIDE 50 ML VIAL IV (18:23)
[2025-01-20 18:32] VITALS: PULSE 83; RESP 20; O2SAT 93
[2025-01-20 19:00] VITALS: BP 158/88; PULSE 89; RESP 30; O2SAT 97
[2025-01-20 20:00] VITALS: BP 152/70; PULSE 74; RESP 20; TEMP 36.6; O2SAT 97
[2025-01-20] MEDS: DOXYCYCLINE HYCL 100 MG TABLET PO (20:01)
--- NOTE | 2025-01-20 20:02 | PC.NURSE ---
IV discontinued. Catheter tip intact. Bleeding controlled.
== END 2025-01-20 20:09 | disposition home or self-care (01) ==
PROVIDERS: Emergency Provider Emergency Medicine; PCP Nurse Practitioner Family
DX: J44.1 Chronic obstructive pulmonary disease with (acute) exacerbation (principal); R51.9 Headache, unspecified
CPT/HCPCS: 70450; 70496; 70498; 71045; 80053; 81001; 83735; 85025; 87086; 87636; 93005; 96361; 96374; 96375; 99285; J1885; J2919; J7120; Q9967

== ENCOUNTER 2025-01-21 18:46 | Emergency (ER) | payer MEDICARE, MEDICAID, SELFPAY ==
[2025-01-21] VITALS (7 sets, daily range): BP systolic 111–160; BP diastolic 76–92; PULSE 82–96; RESP 18; TEMP 36.6–37.1; O2SAT 95–98; BMI 21.6
--- NOTE | 2025-01-21 19:53 | ED_ITS ---
Discharge Plan Disposition Patient Disposition: Home, Self-Care Condition: Good Prescriptions Prescriptions: New benzonatate 100 mg capsule 100 mg PO BID PRN (Reason: Cough) Qty: 60 0RF doxycycline hyclate 100 mg capsule 100 mg PO BID 5 Days Qty: 10 0RF Discontinued doxycycline hyclate 100 mg capsule 100 mg PO BID 5 Days Qty: 10 0RF benzonatate 100 mg capsule 100 mg PO Q6H PRN (Reason: cough) 14 Days Qty: 30 0RF No Action diclofenac sodium [Voltaren Arthritis Pain] 1 % gel 2 g topical QID Qty: 100 2RF Rx Instructions: apply to single elbow, wrist or hand; for hand includes palm/fingers/back of hand lidocaine-prilocaine 2.5-2.5 % cream 0.5 g topical ONCE valacyclovir [Valtrex] 1 gram tablet 1,000 mg PO DAILY 30 Days Qty: 30 3RF guaifenesin 600 mg tablet extended release 12hr 600 mg PO DAILY Qty: 90 2RF tizanidine 4 mg tablet PO Patient Comments: TAKE ONE TABLET BY MOUTH EVERY 8 HOURS levothyroxine 50 mcg tablet 50 mcg PO DAILY Qty: 90 0RF fenofibrate nanocrystallized 145 mg tablet See Rx Instructions .ROUTE .COMPLEX Qty: 90 2RF Dose Instruction: TAKE ONE TABLET BY MOUTH ONCE A DAY Rx Instructions: TAKE ONE TABLET BY MOUTH ONCE A DAY bupropion HCl [Wellbutrin XL] 300 mg tablet extended release 24 hr 300 mg PO DAILY Qty: 30 2RF sennosides [senna] 8.6 mg tablet See Rx Instructions .ROUTE .COMPLEX Qty: 30 2RF Dose Instruction: TAKE ONE TABLET BY MOUTH ONCE A DAY NEEDED FOR CONSTIPATION Rx Instructions: TAKE ONE TABLET BY MOUTH ONCE A DAY NEEDED FOR CONSTIPATION diazepam 5 mg tablet 5 mg PO BID PRN (Reason: anxiety) Qty: 60 0RF lidocaine 5 % adhesive patch,medicated See Rx Instructions .ROUTE .COMPLEX Qty: 30 2RF Dose Instruction: APPLY 1 PATCH TOPICALLY TO MOST PAINFUL AREA AND LEAVE ON FOR 12 HOURS THEN REMOVE AND LEAVE OFF FOR 12 HOURS Rx Instructions: APPLY 1 PATCH TOPICALLY TO MOST PAINFUL AREA AND LEAVE ON FOR 12 HOURS THEN REMOVE AND LEAVE OFF FOR 12 HOURS venlafaxine 150 mg capsule,extended release 24hr See Rx Instructions .ROUTE .COMPLEX Qty: 90 1RF Dose Instruction: TAKE ONE CAPSULE BY MOUTH ONCE A DAY Rx Instructions: TAKE ONE CAPSULE BY MOUTH ONCE A DAY polyethylene glycol 3350 [Miralax] 17 gram/dose powder 17 g PO DAILY Qty: 510 0RF oxycodone-acetaminophen 7.5-325 mg tablet 1 tab PO DAILY ondansetron 4 mg tablet,disintegrating 4 mg PO Q8H PRN (Reason: nausea and vomiting) 5 Days Qty: 10 0RF Referrals Follow up/Referrals: Provider,Referral, MD [Primary Care Provider] - See instructions Activity Restrictions/Add. Instructions Additional Instructions/Restrictions: I prescribed the antibiotics and cough medication to a different pharmacy. Pl ease return with any new or worsening symptoms. Clinical Impressions Clinical Impression: Headache Print Language Print Language: Mongolian Discharge ED Provider: Kashmir Ly General Adult HPI General Chief complaint: Upper Respiratory Infection Stated complaint: Headache; Earache; Cough; Fatigue Time Seen by Provider: 01/21/25 19:53 Mode of Arrival: Wheelchair Source of Information: Patient and Spouse Description of Symptoms (Recalled from ER Triage Doc. by RN): Pt presents for evaluation of worsening cough, aching ears, fevers. Pt states she was seen here yesterday, had a negative covid/flu swab. 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 The patient reports being unable to obtain their medications due to closed pharmacies. The patient's cough has worsened since their last visit. They have been using a nebulizer for treatment, particularly over the weekend, as it was the only medication available to them. The patient describes their head as still blasted and mentions having a headache that has been ongoing. They express that the cough and headache are the symptoms bothering them the most at present. For the headache, the patient mentions previously using Imitrex injections, which were effective in providing quick relief. They inquire about potentially receiving this medication or a similar treatment to alleviate their current headache. The patient used their nebulizer for a breathing treatment just before arriving at the Emergency Department. The patient also mentions receiving an antibiotic during a previous visit. They note that steroids were not prescribed due to potential mood-altering effects. The patient has a history of migraines, treated with Imitrex injections, and recurrent cough requiring nebulizer treatments. Their current medications include a nebulizer, which they used over the weekend for cough, and Imitrex injections used in the past for headaches, which worked quickly. They also mention Osteocys as potentially helpful for headaches. Please note that above description of symptoms, in this electronic medical record under categorization of recalled from ER triage doctor by RN are reflective of an initial nursing assessment, however, is not reflective of my full history and physical exam that was personally taken and clarified. Consequentially, this preceding description of symptoms, which may include the patient's categorized chief complaint in the EMR, do not reflect my personal clinical impression, and the ultimate description of history of present illness and patient stated complaints should be deferred to this section of the note. Unless stated otherwise or congruent with this section of the note, additional signs, symptoms, or incongruence should be interpreted as inaccurate with my clinical impression. Related Data Home Medications ?Medication ?Instructions ?Recorded ?Confirmed oxycodone-acetaminophen 7.5 mg-325 1 tab PO DAILY 06/09/24 01/16/25 mg tablet lidocaine-prilocaine 2.5 %-2.5 % 0.5 g topical ONCE 10/30/24 01/16/25 topical cream tizanidine 4 mg tablet mg PO 01/05/25 01/16/25 Previous Rx's ?Medication ?Instructions ?Recorded polyethylene glycol 3350 17 17 g PO DAILY #510 grams 06/12/24 gram/dose oral powder (Miralax) diclofenac sodium 1 % topical gel 2 g topical QID #100 grams 07/19/24 (Voltaren Arthritis Pain) levothyroxine 50 mcg tablet 50 mcg PO DAILY #90 tabs 10/06/24 fenofibrate nanocrystallized 145 See Rx Instructions .Route 10/13/24 mg tablet .COMPLEX #90 tabs bupropion HCl 300 mg 24 hr tablet, 300 mg PO DAILY #30 tabs 10/21/24 extended release (Wellbutrin XL) guaifenesin 600 mg tablet, 600 mg PO DAILY #90 tabs 10/31/24 extended release 12 hr valacyclovir 1 gram tablet 1,000 mg PO DAILY 30 days #30 tabs 10/31/24 (Valtrex) sennosides 8.6 mg tablet (senna) See Rx Instructions .Route 11/14/24 .COMPLEX #30 tabs diazepam 5 mg tablet 5 mg PO BID PRN anxiety #60 tabs 12/22/24 lidocaine 5 % topical patch See Rx Instructions .Route 12/25/24 .COMPLEX #30 patches venlafaxine 150 mg See Rx Instructions .Route 01/10/25 capsule,extended release 24 hr .COMPLEX #90 caps ondansetron 4 mg disintegrating 4 mg PO Q8H PRN nausea and 01/20/25 tablet vomiting 5 days #10 tabs benzonatate 100 mg capsule 100 mg PO BID PRN Cough #60 caps 01/21/25 doxycycline hyclate 100 mg capsule 100 mg PO BID 5 days #10 caps 01/21/25 Allergies Allergy/AdvReac Type Severity Reaction Status Date / Time calamine Allergy Verified 01/16/25 14:37 meloxicam (From Mobic) Allergy Verified 01/16/25 14:37 acetaminophen (From Vicodin) AdvReac Mild Verified 01/16/25 14:37 Antihistamines - Alkylamine AdvReac Mild Verified 01/16/25 14:37 aripiprazole (From Abilify) AdvReac Mild Verified 01/16/25 14:37 bacitracin (From Neosporin AdvReac Mild Verified 01/16/25 14:37 ([id number])) brexpiprazole (From Rexulti) AdvReac Mild Verified 01/16/25 14:37 buspirone (From BuSpar) AdvReac Mild Verified 01/16/25 14:37 carbamazepine (From Tegretol) AdvReac Mild Verified 01/16/25 14:37 cariprazine (From Vraylar) AdvReac Mild Verified 01/16/25 14:37 celecoxib (From Celebrex) AdvReac Mild Verified 01/16/25 14:37 chlordiazepoxide (From AdvReac Mild Verified 01/16/25 14:37 Librium) chlorpromazine (From AdvReac Mild Verified 01/16/25 14:37 Thorazine) clomipramine (From Anafranil) AdvReac Mild Verified 01/16/25 14:37 clonazepam (From Klonopin) AdvReac Mild Verified 01/16/25 14:37 codeine AdvReac Mild Verified 01/16/25 14:37 cyclobenzaprine (From AdvReac Mild Verified 01/16/25 14:37 Flexeril) desipramine (From Norpramin) AdvReac Mild Verified 01/16/25 14:37 desvenlafaxine (From Pristiq) AdvReac Mild Verified 01/16/25 14:37 dexmedetomidine AdvReac Mild Verified 01/16/25 14:37 divalproex sodium (From AdvReac Mild Verified 01/16/25 14:37 Depakote) duloxetine (From Cymbalta) AdvReac Mild Verified 01/16/25 14:37 eszopiclone (From Lunesta) AdvReac Mild Verified 01/16/25 14:37 fentanyl AdvReac Mild Verified 01/16/25 14:37 fluoxetine (From Prozac) AdvReac Mild Verified 01/16/25 14:37 hydrocodone (From Vicodin) AdvReac Mild Verified 01/16/25 14:37 ibuprofen AdvReac Mild Verified 01/16/25 14:37 lorazepam (From Ativan) AdvReac Mild Verified 01/16/25 14:37 lurasidone (From Latuda) AdvReac Mild Verified 01/16/25 14:37 meperidine (From Demerol) AdvReac Mild Verified 01/16/25 14:37 methadone AdvReac Mild Verified 01/16/25 14:37 mirtazapine (From Remeron) AdvReac Mild Verified 01/16/25 14:37 morphine AdvReac Mild Verified 01/16/25 14:37 neomycin (From Neosporin AdvReac Mild Verified 01/16/25 14:37 ([id number])) paroxetine (From Paxil) AdvReac Mild Verified 01/16/25 14:37 perphenazine (From Trilafon) AdvReac Mild Verified 01/16/25 14:37 polymyxin B (From Neosporin AdvReac Mild Verified 01/16/25 14:37 ([id number])) propranolol (From Inderal [place]) AdvReac Mild Verified 01/16/25 14:37 quetiapine (From Seroquel) AdvReac Mild Verified 01/16/25 14:37 risperidone (From Risperdal) AdvReac Mild Verified 01/16/25 14:37 sertraline (From Zoloft) AdvReac Mild Verified 01/16/25 14:37 temazepam (From Restoril) AdvReac Mild Verified 01/16/25 14:37 topiramate (From Topamax) AdvReac Mild Verified 01/16/25 14:37 tramadol (From Ultram) AdvReac Mild Verified 01/16/25 14:37 vortioxetine (From AdvReac Mild Verified 01/16/25 14:37 Trintellix) ziprasidone (From Geodon) AdvReac Mild Verified 01/16/25 14:37 zolpidem (From Ambien) AdvReac Mild Verified 01/16/25 14:37 steroids Allergy Mild Uncoded 01/16/25 14:37 PFSH PFS Disclaimer: The information contained in this section may have been updated after the patient was seen, as this information can be updated by other users. Medical History (Updated 01/21/25 @ 22:07 by Kashmir Ly MD) Asthma Dyspnea on exertion History of multiple strokes Breast cancer screening Frequent falls Hyperlipemia Sjogrens syndrome Muscle spasm Dystonia Surgical History History of left oophorectomy History of endometrial ablation H/O cervical spine surgery H/O hernia repair History of tonsillectomy Hx of appendectomy History of cholecystectomy History of arthroplasty of left ankle Family History Other Cancer Coronary artery disease Diabetes FHx: mental illness Hypertension Substance abuse Thyroid disorder Social History Smoking Status: Never smoker alcohol intake: current alcohol intake frequency: a few times a month substance use type: denies use, former substance user, marijuana, crack/cocaine, opiates and prescription drug current occupational status: disabled Travel in the last 8 weeks?: None household members: significant other housing: house marital status: Have you lived/traveled outside [place] in past 30 days?: No Contact w/someone who lives/traveled outside [place] past 30 days?: No Exposure to someone with infectious disease in past 14 days?: No Do you have a fever (greater than 100.4 F or 38 C)?: No Have you tested positive for COVID-19?: No Exposed to someone with COVID-19 in past 14 days?: No Do you have a sore throat?: No Do you have a cough?: Yes Do you have any weakness?: No Do you have any diarrhea?: No Are you experiencing any unusual bleeding?: No Do you have any muscle aches/pain?: No Do you have any abdominal pain?: No Are you experiencing loss of taste or smell?: No Other Medical History Have you received the Pneumonia Vaccine: No ROS Obtained: Yes other As per HPI Physical Exam General General appearance: alert and in no apparent distress Head Head exam: atraumatic and normocephalic Eye Eye exam: Present normal appearance Neck Neck exam: Present normal inspection Chest Chest inspection: Present normal inspection and symmetric chest wall rise Respiratory Respiratory exam: Present normal lung sounds bilaterally; Absent respiratory distress Cardiovascular Cardiovascular exam: Present regular rate and normal rhythm Abdominal Exam Abdominal exam: Present soft Neurological Exam Neurological exam: Present alert and oriented X3 Psychiatric Psychiatric exam: Present normal affect and normal mood Skin Skin exam: Present warm and dry Medical Decision Making Medical Records Medical records reviewed: Yes I reviewed the patient's medical records. Screening: Per USPSTF and CDC recommendations, given the prevalence of disease in our region, it is our hospital?s policy to screen for HIV and viral Hepatitis for all patients aged 18 and over and those with ongoing risk factors. [place] Inquiry Pt receiving controlled substance: No Vital Signs: 01/21/25 18:50 01/21/25 20:00 01/21/25 20:31 Temperature 98.7 F Temperature Source Oral Pulse Rate 82 91 H Pulse Rate [Right] 96 H Respiratory Rate 18 Blood Pressure 111/76 148/92 H Blood Pressure [Right Arm] 118/76 Blood Pressure Mean [Right Arm] 90 Blood Pressure Source Blood Pressure Source [Right Arm] Automatic Cuff Blood Pressure Position Blood Pressure Position [Right Arm] Sitting 02 Sat by Pulse Oximetry 98 95 97 Oxygen Delivery Method Room Air 01/21/25 21:00 01/21/25 21:13 01/21/25 21:31 Temperature Temperature Source Pulse Rate 85 95 H 93 H Pulse Rate [Right] Respiratory Rate Blood Pressure 160/91 H 124/78 Blood Pressure [Right Arm] Blood Pressure Mean [Right Arm] Blood Pressure Source Blood Pressure Source [Right Arm] Blood Pressure Position Blood Pressure Position [Right Arm] 02 Sat by Pulse Oximetry 97 95 Oxygen Delivery Method 01/21/25 22:11 Temperature 97.9 F Temperature Source Temporal Artery Scan Pulse Rate 87 Pulse Rate [Right] Respiratory Rate 18 Blood Pressure 124/78 Blood Pressure [Right Arm] Blood Pressure Mean [Right Arm] Blood Pressure Source Automatic Cuff Blood Pressure Source [Right Arm] Blood Pressure Position Sitting Blood Pressure Position [Right Arm] 02 Sat by Pulse Oximetry Oxygen Delivery Method Room Air Orders (Tests/Meds): ED MEDICATIONS Discontinued Medications Generic Name Dose Route Start Last Admin Trade Name Freq PRN Reason Stop Dose Admin Acetaminophen 1,000 mg 01/21/25 20:35 01/21/25 20:49 Acetaminophen 500mg Tab PO 01/21/25 20:36 1,000 mg ONCE ONE Administration Albuterol/Ipratropium 3 ml 01/21/25 20:35 01/21/25 20:50 Ipratropium/Albuterol 3 Ml Neb IH 01/21/25 20:36 3 ml ONCE ONE Administration Doxycycline Hyclate 100 mg 01/21/25 20:36 01/21/25 20:49 Doxycycline Hycl 100 Mg Tablet PO 01/21/25 20:37 100 mg ONCE ONE Administration Ibuprofen 600 mg 01/21/25 20:35 01/21/25 20:49 Ibuprofen 600 Mg Tablet PO 01/21/25 20:36 600 mg ONCE ONE Administration Sumatriptan Succinate 6 mg 01/21/25 20:35 01/21/25 20:49 Sumatriptan 6mg/0.5ml Vial SUBCUT 01/21/25 20:36 6 mg ONCE ONE Administration Medical Decision Narrative: Patient with history and exam per above presenting for evaluation of continued headaches, shortness of breath. I evaluated patient less than 24 hours ago and workup included CT PE, CTA head and neck which revealed no pulmonary embolism or intracranial hemorrhage. Patient presents today with continued symptoms, however was not able to pickling solution maker prescriptions, including antibiotics, for symptomatic control and treatment of possible COPD exacerbation. I have a low clinical index of suspicion for different symptoms or diagnoses from recent workup that would warrant further testing at this time. ED workup and treatment included: ED MEDICATIONS Discontinued Medications Generic Name Dose Route Start Last Admin Trade Name Freq PRN Reason Stop Dose Admin Acetaminophen 1,000 mg 01/21/25 20:35 01/21/25 20:49 Acetaminophen 500mg Tab PO 01/21/25 20:36 1,000 mg ONCE ONE Administration Albuterol/Ipratropium 3 ml 01/21/25 20:35 01/21/25 20:50 Ipratropium/Albuterol 3 Ml Neb IH 01/21/25 20:36 3 ml ONCE ONE Administration Doxycycline Hyclate 100 mg 01/21/25 20:36 01/21/25 20:49 Doxycycline Hycl 100 Mg Tablet PO 01/21/25 20:37 100 mg ONCE ONE Administration Ibuprofen 600 mg 01/21/25 20:35 01/21/25 20:49 Ibuprofen 600 Mg Tablet PO 01/21/25 20:36 600 mg ONCE ONE Administration Sumatriptan Succinate 6 mg 01/21/25 20:35 01/21/25 20:49 Sumatriptan 6mg/0.5ml Vial SUBCUT 01/21/25 20:36 6 mg ONCE ONE Administration Patient reports improvement of symptoms upon repeat evaluation after bilateral supraorbital nerve block. I discussed my clinical impression with patient and answered all questions. At this time, the evidence for any other entities in the differential is ins ufficient to warrant any further testing or ED observation. This was explained to the patient. The patient was advised that persistent or worsening symptoms require further evaluation. Procedures Nerve Block Nerve Block 1: Time out performed: Yes Local Anesthetic: lidocaine 1% Amount of anesthesia used (mL): 5 Side: Left and Right Nerve Blocks: other (Supraorbital) Procedure Successful: Yes Patient Tolerated Procedure: well and no complications Complications: none Critical Care Critical Care Time Critical Care Time: No
[2025-01-21] MEDS: DOXYCYCLINE HYCL 100 MG TABLET PO (20:49)
[2025-01-21] MEDS: SUMAtriptan 6MG/0.5ML VIAL 6 MG SUBCUT (20:49)
[2025-01-21] MEDS: IBUPROFEN 600 MG TABLET PO (20:49)
[2025-01-21] MEDS: ACETAMINOPHEN 500MG TAB 1000 MG PO (20:49)
[2025-01-21] MEDS: IPRATROPIUM/ALBUTEROL 3 ML NEB IH (20:50)
== END 2025-01-21 22:14 | disposition home or self-care (01) ==
PROVIDERS: Emergency Provider Emergency Medicine
DX: R51.9 Headache, unspecified (principal); H92.03 Otalgia, bilateral; R53.83 Other fatigue
CPT/HCPCS: 99283; J3030

== ENCOUNTER 2025-01-28 23:11 | Inpatient (IN) | payer MEDICARE, MEDICAID, SELFPAY ==
[2025-01-28 23:24] VITALS: BP 163/90; PULSE 109; RESP 20; TEMP 37.4; O2SAT 95; BMI 21.4
[2025-01-28 23:30] VITALS: BP 145/82; PULSE 104; RESP 32; O2SAT 94
--- NOTE | 2025-01-28 23:43 | CT_ITS ---
PROCEDURE INFORMATION: Exam: CTA Chest With Contrast Exam date and time: 01/29/2025 12:05 AM Age: 64 years old Clinical indication: Pain; Cough; Additional info: Productive cough chest pain TECHNIQUE: Imaging protocol: Computed tomographic angiography of the chest with contrast. Exam focused on the arteries. 3D rendering (Not supervised by radiologist): MIP and/or 3D reconstructed images were created by the technologist. Radiation optimization: All CT scans at this facility use at least one of these dose optimization techniques: automated exposure control; mA and/or kV adjustment per patient size (includes targeted exams where dose is matched to clinical indication); or iterative reconstruction. Contrast material: ISOUVE 370; Contrast volume: 70 ml; Contrast route: INTRAVENOUS (IV); COMPARISON: CR XR CHEST PORTABLE 01/20/2025 4:52 PM FINDINGS: Pulmonary arteries: No pulmonary emboli are identified. Small branch assessment in the lung bases is nondiagnostic due to respiratory motion. Mild dilatation of the central pulmonary arteries suggesting pulmonary arterial hypertension. Aorta: The aorta demonstrates moderate ectasia/tortuosity and mild calcific atherosclerosis. No dissection or lionel aneurysm. No mediastinal hematoma. Thyroid: The visualized thyroid gland demonstrates no gross abnormality. Lungs: Mild bilateral basilar bronchial wall thickening suggesting mild changes of bronchitis. Alveolar opacities in the left lung base concerning for pneumonia. Additional mild involvement in the posteromedial right base. There are few subsegmental bronchial occlusions in the lung bases, consider mucous plugging/secretions versus small volume aspiration and aspiration pneumonia. No pulmonary mass lesions are identified. Pleural spaces: No pleural effusion. No pneumothorax. Heart: Heart size normal. No pericardial effusion. Coronary arteries: Mild coronary artery calcification. Esophagus: The esophagus is largely contracted but demonstrates no gross abnormality. Lymph nodes: No supraclavicular or axillary adenopathy. No mediastinal adenopathy. Mildly enlarged left hilar nodes. Gallbladder and biliary ducts: Prior cholecystectomy. Spleen: Granulomatous calcifications in the spleen and liver. Bones/joints: No acute osseous abnormalities. Leftward convexity thoracolumbar scoliotic curvature which may be positional. Soft tissues: No acute soft tissue abnormalities. IMPRESSION: 1. No pulmonary emboli are identified. Small branch assessment in the lung bases was nondiagnostic due to respiratory motion. 2. There is moderate left and mild right basilar airspace disease concerning for pneumonia. There is mild bronchial thickening with a few subsegmental bronchial occlusions in the lung bases as well, possibly mucous plugging/secretions versus small volume aspirated content, consider aspiration pneumonia. 3. Mildly enlarged left hilar nodes. 4. Additional nonemergent findings detailed above.
--- NOTE | 2025-01-28 23:43 | ECG_ITS ---
APPROVED REPORT Exam: Resting ECG HR:107 bpm ECG Measurements Heart Rate 107 AXES [place] 132 P -25 QRSd 90 QRS 108 QT 318 T 89 QTc 380 Conclusion SINUS TACHYCARDIA SEPTAL MYOCARDIAL INFARCTION , PROBABLY OLD [40+ ms Q WAVE IN V1/V2] LATERAL MYOCARDIAL INFARCTION , OF INDETERMINATE AGE [40+ ms Q WAVE AND/OR ST/T ABNORMALITY IN I/aVL/V5/V6] ABNORMAL ECG No STEMI Electronically signed by : ATILIO VARELA, 01/29/2025 06:29:21
[2025-01-28 23:49] LABS: Basophils # 0.1 K/mm3 (0-0.2); Basophils % 0.4 % (0.1-2.0); Eosinophils # 0.1 Kmm3 (0.0-0.4); Eosinophils % 0.4 % (0.1-12.0); Hematocrit 32.4 % (37.0-47.0); Immature Granulocytes # 0.12 10^3uL; Immature Granulocytes % 0.6 %; Lymphocytes # 2.4 K/mm3 (0.7-4.5); Lymphocytes % 11.7 % (10-50); Mean Corpuscular Hemoglobin 32.2 pg (27.0-31.2); Mean Corpuscular Volume 94.7 fl (81-99); Mean Platelet Volume 10.4 fl (7.4-10.4); Monocytes # 1.9 K/mm3 (0.1-1.0); Monocytes % 9.3 % (1.7-9.3); Neutrophils # 15.7 K/mm3 (1.8-7.8); Neutrophils % 77.6 % (37.0-80.0); Nucleated Red Blood Cells # 0 10^3/uL; Nucleated Red Blood Cells % 0 %; Platelet Count 562 K/mm3 (142-424); Red Blood Count 3.42 M/mm3 (4.20-5.40); Red Cell Distribution Width 12.2 % (11.5-17.5); White Blood Count 20.2 K/mm3 (4.8-10.8)
[2025-01-28 23:52] LABS: Albumin Level 4.3 g/dl (3.5-5.0); Chloride 100 mmol/L (98-107); MANUAL DIFFERENTIAL MANUAL DIFFERENTIAL (MANUAL DIFF); Potassium 4.2 mmoL/L (3.5-5.1); Sodium 133 mmol/L (136-145)
[2025-01-28 23:54] LABS: Microscopic, Urine URINE MICROSCOPIC (MICROSCOPIC)
[2025-01-28 23:55] LABS: Appearance,Urine CLEAR (Clear); Bilirubin,Urine Negative (Negative); Blood, Urine Negative (Negative); Color,Urine YELLOW (Yellow); Glucose,Urine (UA) Negative (Negative); Ketones,Urine Negative (Negative); Leukocyte Esterase,Urine 1+ (Negative); Nitrate,Urine Negative (Negative); Protein,Urine Negative (Negative)
[2025-01-28 23:55] LABS: Alanine Aminotransferase 24 U/L (12-78); Albumin/Globulin Ratio 1.1 (1.1-1.8); Alkaline Phosphatase 71 U/L (38-126); Anion Gap 11.2 mEq/L (5-15); Aspartate Amino Transferase 38 U/L (14-36); Bilirubin,Total 0.7 mg/dl (0.2-1.3); Blood Urea Nitrogen 11 mg/dl (7-17); Calcium 9.8 mg/dl (8.4-10.2); Carbon Dioxide 26 mmol/L (22.0-30.0); Creatinine Clearance Estimated 52 mL/min (50-200); Estimated Glomerular Filt Rate 84 ml/min (>60); GFR (African American) 102 ML/MIN (>60); Globulin 3.9 g/dL (1.3-3.2); Glucose 112 mg/dl (74-100); Total Protein,Serum 8.2 g/dl (6.3-8.2)
[2025-01-28 23:56] LABS: Adenovirus,PCR Not Detected (NotDetected)
[2025-01-28 23:57] LABS: Bordetella Pertussis Not Detected (NotDetected); Chlamydophila Pneumoniae, PCR Not Detected (NotDetected); Coronavirus 19, PCR Not Detected (NotDetected); Coronavirus 229E Not Detected (NotDetected); Coronavirus NL63 Not Detected (NotDetected); Coronavirus OC43 Not Detected (NotDetected); Coronovirus HKU1,PCR Not Detected (NotDetected); Influenza A, PCR Not Detected (NotDetected); Influenza AH1, 2009 Not Detected (NotDetected); Influenza AH1, PCR Not Detected (NotDetected); Influenza AH3,PCR Not Detected (NotDetected); Influenza B, PCR Not Detected (NotDetected); Mycoplasma Pneumoniae, PCR Not Detected (NotDetected); Parainfluenza 1, PCR Not Detected (NotDetected); Parainfluenza 2, PCR Not Detected (NotDetected); Parainfluenza 3, PCR Not Detected (NotDetected); Parainfluenza 4, PCR Not Detected (NotDetected); Respiratory Syncytial Virus Not Detected (NotDetected); Rhinovirus/Enterovirus Not Detected (NotDetected)
[2025-01-29] VITALS (10 sets, daily range): BP systolic 121–139; BP diastolic 66–79; PULSE 88–102; RESP 17–41; TEMP 36.6–37.3; O2SAT 93–98; BMI 21.4
[2025-01-29 00:03] LABS: Eosinophils % 1 % (0-3); Giant Platelets 1+; Lymphocytes % 14 % (10-50); Monocytes % 10 % (2-9); Neutrophils % 75 % (42-76); Platelet Estimate Slight Increase; Poikilocytosis 1+; Polychromasia 1+; Target Cells 1+; Total Cells Counted 100
[2025-01-29 00:10] LABS: Troponin I < 0.01 ng/ml (0.00-0.034)
[2025-01-29 00:19] LABS: Lactic Acid 0.6 mmol/L (0.7-2.1)
--- NOTE | 2025-01-29 00:25 | HMH.EDGENADL ---
Discharge Plan Disposition Chief Complaint: Cough Prescriptions Prescriptions: No Action diclofenac sodium [Voltaren Arthritis Pain] 1 % gel 2 g topical QID Qty: 100 2RF Rx Instructions: apply to single elbow, wrist or hand; for hand includes palm/fingers/back of hand lidocaine-prilocaine 2.5-2.5 % cream 0.5 g topical ONCE valacyclovir [Valtrex] 1 gram tablet 1,000 mg PO DAILY 30 Days Qty: 30 3RF guaifenesin 600 mg tablet extended release 12hr 600 mg PO DAILY Qty: 90 2RF tizanidine 4 mg tablet PO Patient Comments: TAKE ONE TABLET BY MOUTH EVERY 8 HOURS levothyroxine 50 mcg tablet 50 mcg PO DAILY Qty: 90 0RF fenofibrate nanocrystallized 145 mg tablet See Rx Instructions .ROUTE .COMPLEX Qty: 90 2RF Dose Instruction: TAKE ONE TABLET BY MOUTH ONCE A DAY Rx Instructions: TAKE ONE TABLET BY MOUTH ONCE A DAY bupropion HCl [Wellbutrin XL] 300 mg tablet extended release 24 hr 300 mg PO DAILY Qty: 30 2RF sennosides [senna] 8.6 mg tablet See Rx Instructions .ROUTE .COMPLEX Qty: 30 2RF Dose Instruction: TAKE ONE TABLET BY MOUTH ONCE A DAY NEEDED FOR CONSTIPATION Rx Instructions: TAKE ONE TABLET BY MOUTH ONCE A DAY NEEDED FOR CONSTIPATION lidocaine 5 % adhesive patch,medicated See Rx Instructions .ROUTE .COMPLEX Qty: 30 2RF Dose Instruction: APPLY 1 PATCH TOPICALLY TO MOST PAINFUL AREA AND LEAVE ON FOR 12 HOURS THEN REMOVE AND LEAVE OFF FOR 12 HOURS Rx Instructions: APPLY 1 PATCH TOPICALLY TO MOST PAINFUL AREA AND LEAVE ON FOR 12 HOURS THEN REMOVE AND LEAVE OFF FOR 12 HOURS venlafaxine 150 mg capsule,extended release 24hr See Rx Instructions .ROUTE .COMPLEX Qty: 90 1RF Dose Instruction: TAKE ONE CAPSULE BY MOUTH ONCE A DAY Rx Instructions: TAKE ONE CAPSULE BY MOUTH ONCE A DAY diazepam 5 mg tablet 5 mg PO BID PRN (Reason: anxiety) Qty: 60 0RF polyethylene glycol 3350 [Miralax] 17 gram/dose powder 17 g PO DAILY Qty: 510 0RF benzonatate 100 mg capsule 100 mg PO BID PRN (Reason: Cough) Qty: 60 0RF doxycycline hyclate 100 mg capsule 100 mg PO BID 5 Days Qty: 10 0RF oxycodone-acetaminophen 7.5-325 mg tablet 1 tab PO DAILY ondansetron 4 mg tablet,disintegrating 4 mg PO Q8H PRN (Reason: nausea and vomiting) 5 Days Qty: 10 0RF Referrals Follow up/Referrals: Regan Navarrete APRN [Primary Care Provider, Family Practice] - See instructions Instructions Patient Instructions: Cough Print Language Print Language: Amharic Discharge ED Provider: Marco Bob General Adult HPI General Chief complaint: Cough Stated complaint: fever, lethargy, cough since 01/28/2025 Time Seen by Provider: 01/28/25 23:34 Mode of Arrival: EMS Source of Information: Patient Description of Symptoms (Recalled from ER Triage Doc. by RN): Pt states she has had a constant headache, pain with inspiration, cough, weakness, chills, and no appetite for the past 10 days. Pt states she started to cough up sputum in the past couple days. History of Present Illness HPI narrative: 64-year-old female who reports a history of bipolar with significant sensitivities to medications which can induce kai as well as self-reported COPD and asthma with albuterol nebulizer at home but reports she cannot take steroids again due to the induction of kai presents to the ER with complaints of headache, pain with inspiration, cough, weakness, chills, subjective fever, decreased appetite. Patient reports she had upper respiratory infection over the last 10 days and has started having worsening productive cough. She reports she was seen here a few days ago and had an injection above her eyebrows that improved her headache but her headache has since come back. She also states her nebulizer seem to offer a little bit of relief of her symptoms but the cough is causing chest discomfort. No vomiting or diarrhea. No other complaints. Patient does express that previously antibiotics have caused her to have manic episodes, we discussed the fact that she will very likely have to be on antibiotics especially if she has pneumonia or other concerning infectious findings. She understands this. She does not know what antibiotic she can or cannot tolerate. Patient came in by EMS and they report they placed nasal cannula for comfort but patient was not hypoxic Related Data Home Medications ?Medication ?Instructions ?Recorded ?Confirmed oxycodone-acetaminophen 7.5 mg-325 1 tab PO DAILY 06/09/24 01/16/25 mg tablet lidocaine-prilocaine 2.5 %-2.5 % 0.5 g topical ONCE 10/30/24 01/16/25 topical cream tizanidine 4 mg tablet mg PO 01/05/25 01/16/25 Previous Rx's ?Medication ?Instructions ?Recorded polyethylene glycol 3350 17 17 g PO DAILY #510 grams 06/12/24 gram/dose oral powder (Miralax) diclofenac sodium 1 % topical gel 2 g topical QID #100 grams 07/19/24 (Voltaren Arthritis Pain) levothyroxine 50 mcg tablet 50 mcg PO DAILY #90 tabs 10/06/24 fenofibrate nanocrystallized 145 See Rx Instructions .Route 10/13/24 mg tablet .COMPLEX #90 tabs bupropion HCl 300 mg 24 hr tablet, 300 mg PO DAILY #30 tabs 10/21/24 extended release (Wellbutrin XL) guaifenesin 600 mg tablet, 600 mg PO DAILY #90 tabs 10/31/24 extended release 12 hr valacyclovir 1 gram tablet 1,000 mg PO DAILY 30 days #30 tabs 10/31/24 (Valtrex) sennosides 8.6 mg tablet (senna) See Rx Instructions .Route 11/14/24 .COMPLEX #30 tabs lidocaine 5 % topical patch See Rx Instructions .Route 12/25/24 .COMPLEX #30 patches venlafaxine 150 mg See Rx Instructions .Route 01/10/25 capsule,extended release 24 hr .COMPLEX #90 caps ondansetron 4 mg disintegrating 4 mg PO Q8H PRN nausea and 01/20/25 tablet vomiting 5 days #10 tabs benzonatate 100 mg capsule 100 mg PO BID PRN Cough #60 caps 01/21/25 doxycycline hyclate 100 mg capsule 100 mg PO BID 5 days #10 caps 01/21/25 diazepam 5 mg tablet 5 mg PO BID PRN anxiety #60 tabs 01/26/25 Allergies Allergy/AdvReac Type Severity Reaction Status Date / Time calamine Allergy Verified 01/16/25 14:37 meloxicam (From Mobic) Allergy Verified 01/16/25 14:37 acetaminophen (From Vicodin) AdvReac Mild Verified 01/16/25 14:37 Antihistamines - Alkylamine AdvReac Mild Verified 01/16/25 14:37 aripiprazole (From Abilify) AdvReac Mild Verified 01/16/25 14:37 bacitracin (From Neosporin AdvReac Mild Verified 01/16/25 14:37 ([id number])) brexpiprazole (From Rexulti) AdvReac Mild Verified 01/16/25 14:37 buspirone (From BuSpar) AdvReac Mild Verified 01/16/25 14:37 carbamazepine (From Tegretol) AdvReac Mild Verified 01/16/25 14:37 cariprazine (From Vraylar) AdvReac Mild Verified 01/16/25 14:37 celecoxib (From Celebrex) AdvReac Mild Verified 01/16/25 14:37 chlordiazepoxide (From AdvReac Mild Verified 01/16/25 14:37 Librium) chlorpromazine (From AdvReac Mild Verified 01/16/25 14:37 Thorazine) clomipramine (From Anafranil) AdvReac Mild Verified 01/16/25 14:37 clonazepam (From Klonopin) AdvReac Mild Verified 01/16/25 14:37 codeine AdvReac Mild Verified 01/16/25 14:37 cyclobenzaprine (From AdvReac Mild Verified 01/16/25 14:37 Flexeril) desipramine (From Norpramin) AdvReac Mild Verified 01/16/25 14:37 desvenlafaxine (From Pristiq) AdvReac Mild Verified 01/16/25 14:37 dexmedetomidine AdvReac Mild Verified 01/16/25 14:37 divalproex sodium (From AdvReac Mild Verified 01/16/25 14:37 Depakote) duloxetine (From Cymbalta) AdvReac Mild Verified 01/16/25 14:37 eszopiclone (From Lunesta) AdvReac Mild Verified 01/16/25 14:37 fentanyl AdvReac Mild Verified 01/16/25 14:37 fluoxetine (From Prozac) AdvReac Mild Verified 01/16/25 14:37 hydrocodone (From Vicodin) AdvReac Mild Verified 01/16/25 14:37 ibuprofen AdvReac Mild Verified 01/16/25 14:37 lorazepam (From Ativan) AdvReac Mild Verified 01/16/25 14:37 lurasidone (From Latuda) AdvReac Mild Verified 01/16/25 14:37 meperidine (From Demerol) AdvReac Mild Verified 01/16/25 14:37 methadone AdvReac Mild Verified 01/16/25 14:37 mirtazapine (From Remeron) AdvReac Mild Verified 01/16/25 14:37 morphine AdvReac Mild Verified 01/16/25 14:37 neomycin (From Neosporin AdvReac Mild Verified 01/16/25 14:37 ([id number])) paroxetine (From Paxil) AdvReac Mild Verified 01/16/25 14:37 perphenazine (From Trilafon) AdvReac Mild Verified 01/16/25 14:37 polymyxin B (From Neosporin AdvReac Mild Verified 01/16/25 14:37 ([id number])) propranolol (From Inderal [place]) AdvReac Mild Verified 01/16/25 14:37 quetiapine (From Seroquel) AdvReac Mild Verified 01/16/25 14:37 risperidone (From Risperdal) AdvReac Mild Verified 01/16/25 14:37 sertraline (From Zoloft) AdvReac Mild Verified 01/16/25 14:37 temazepam (From Restoril) AdvReac Mild Verified 01/16/25 14:37 topiramate (From Topamax) AdvReac Mild Verified 01/16/25 14:37 tramadol (From Ultram) AdvReac Mild Verified 01/16/25 14:37 vortioxetine (From AdvReac Mild Verified 01/16/25 14:37 Trintellix) ziprasidone (From Geodon) AdvReac Mild Verified 01/16/25 14:37 zolpidem (From Ambien) AdvReac Mild Verified 01/16/25 14:37 steroids Allergy Mild Uncoded 01/16/25 14:37 PFS PFS Disclaimer: The information contained in this section may have been updated after the patient was seen, as this information can be updated by other users. Medical History (Updated 01/21/25 @ 22:07 by Kashmir Ly MD) Asthma Dyspnea on exertion History of multiple strokes Breast cancer screening Frequent falls Hyperlipemia Sjogrens syndrome Muscle spasm Dystonia Surgical History History of left oophorectomy History of endometrial ablation H/O cervical spine surgery H/O hernia repair History of tonsillectomy Hx of appendectomy History of cholecystectomy History of arthroplasty of left ankle Family History Other Cancer Coronary artery disease Diabetes FHx: mental illness Hypertension Substance abuse Thyroid disorder Social History Smoking Status: Former smoker alcohol intake: current alcohol intake frequency: a few times a month substance use type: denies use, former substance user, marijuana, crack/cocaine, opiates and prescription drug current occupational status: disabled Travel in the last 8 weeks?: None household members: significant other housing: house marital status: Have you lived/traveled outside [place] in past 30 days?: No Contact w/someone who lives/traveled outside [place] past 30 days?: No Exposure to someone with infectious disease in past 14 days?: No Do you have a fever (greater than 100.4 F or 38 C)?: No Have you tested positive for COVID-19?: No Exposed to someone with COVID-19 in past 14 days?: No Do you have a sore throat?: No Do you have a cough?: Yes Do you have any weakness?: Yes Do you have any diarrhea?: No Are you experiencing any unusual bleeding?: No Do you have any muscle aches/pain?: No Do you have any abdominal pain?: No Are you experiencing loss of taste or smell?: No Other Medical History Have you received the Pneumonia Vaccine: No ROS Obtained: Yes Systems reviewed as appropriate & no additional complaints except as documented per HPI Physical Exam General General appearance: alert and in no apparent distress Head Head exam: atraumatic and normocephalic Eye Eye exam: Present PERRL and EOMI ENT ENT exam: Present mucous membranes moist Neck Neck exam: Present normal inspection and full ROM Chest Chest inspection: Present symmetric chest wall rise Respiratory Respiratory exam: Absent normal lung sounds bilaterally (Mildly diminished on the right compared to the left), respiratory distress, wheezes or stridor Cardiovascular Cardiovascular exam: Present normal rhythm and tachycardia Abdominal Exam Abdominal exam: Present soft; Absent distention or tenderness Extremities Exam Extremities exam: Present full ROM; Absent edema Neurological Exam Neurological exam: Present alert and oriented X3; Absent motor sensory deficit Psychiatric Psychiatric exam: Present normal affect and normal mood Skin Skin exam: Present warm and dry Medical Decision Making Medical Records Medical records reviewed: Yes I reviewed the patient's medical records. Screening: Per USPSTF and CDC recommendations, given the prevalence of disease in our region, it is our hospital?s policy to screen for HIV and viral Hepatitis for all patients aged 18 and over and those with ongoing risk factors. MR Comment: Most recent behavioral health note from October 2024 demonstrates patient was counseled on stopping marijuana. Lamotrigine was discontinued. Nghia Inquiry Pt receiving controlled substance: No Vital Signs: 01/28/25 23:24 01/28/25 23:30 01/28/25 23:30 Temperature 99.3 F Temperature Source Oral Oral Pulse Rate 104 H Pulse Rate [Right Radial] 109 H Respiratory Rate 20 32 H Blood Pressure Blood Pressure [Left Arm] 163/90 H Blood Pressure Mean Blood Pressure Mean [Left Arm] 114 Blood Pressure Source [Left Arm] Automatic Cuff 02 Sat by Pulse Oximetry 95 94 L Oxygen Delivery Method Room Air 01/28/25 23:30 01/29/25 00:00 01/29/25 00:00 Temperature Temperature Source Pulse Rate 100 H Pulse Rate [Right Radial] Respiratory Rate 30 H Blood Pressure 145/82 H 135/66 Blood Pressure [Left Arm] Blood Pressure Mean 111 89 Blood Pressure Mean [Left Arm] Blood Pressure Source [Left Arm] 02 Sat by Pulse Oximetry 95 Oxygen Delivery Method Lab Data Lab Results 01/28/25 00:02: Lactate 0.6 L 01/28/25 23:20: WBC 20.2 H*, RBC 3.42 L, Hgb 11.0 L, Hct 32.4 L, MCV 94.7, MCH 32.2 H, MCHC 34.0, RDW 12.2, Plt Count 562 H, MPV 10.4, Neut % (Auto) 77.6, Lymph % (Auto) 11.7, [place] % (Auto) 9.3, Eos % (Auto) 0.4, Baso % (Auto) 0.4, Neut # (Auto) 15.7 H, Lymph # (Auto) 2.4, [place] # (Auto) 1.9 H, Eos # (Auto) 0.1, Baso # (Auto) 0.1, Total Counted 100, Neutrophils % (Manual) 75, Lymphocytes % (Manual) 14, Monocytes % (Manual) 10 H, Eosinophils % (Manual) 1, Platelet Estimate Slight increase, Giant Platelets 1+, Polychromasia 1+, Poikilocytosis 1+, Target Cells 1+, Sodium 133 L, Potassium 4.2, Chloride 100, Carbon Dioxide 26, Anion Gap 11.2, BUN 11, Creatinine 0.70, Estimated Creat Clear 52, Estimated GFR 84, Est GFR ( Amer) 102, Glucose 112 H, Calcium 9.8, Total Bilirubin 0.7, AST 38 H, ALT 24, Alkaline Phosphatase 71, Troponin I < 0.01, Total Protein 8.2, Albumin 4.3, Globulin 3.9 H, Albumin/Globulin Ratio 1.1 01/28/25 23:39: Urine Color Yellow, Urine Appearance Clear, Urine pH 7.0, Ur Specific Ceres 1.010, Urine Protein Negative, Urine Glucose (UA) Negative, Urine Ketones Negative, Urine Blood Negative, Urine Nitrate Negative, Urine Bilirubin Negative, Urine Urobilinogen 1.0, Ur Leukocyte Esterase 1+ A, Urine RBC Occasional, Urine WBC 3-5, Ur Squamous Epith Cells 5-10, Amorphous Sediment Trace, Urine Bacteria 1+ 01/28/25 23:43: VBG pH 7.40, VBG pCO2 39.5, VBG pO2 42.9 H, VBG HCO3 24.1, VBG Total CO2 25.4, VBG O2 Saturation 79.3 H, VBG Base Excess -0.6, VBG Lactic Acid 1.1 01/28/25 23:52: Chlamy pneumoniae PCR Not detected, Adenovirus (PCR) Not detected, B. pertussis DNA (PCR) Not detected, Coronavirus OC43 (PCR) Not detected, Coronavirus HKU1 (PCR) Not detected, Coronavirus 229E (PCR) Not detected, SARS-CoV-2 (PCR) Not detected, Coronavirus NL63 (PCR) Not detected, Human Metapneumovir PCR Detected A, Influenza A (H1) PCR Not detected, Influ A (H1N1/09) PCR Not detected, Influenza A (H3) PCR Not detected, Influenza Type A (PCR) Not detected, Influenza Type B (PCR) Not detected, M. pneumoniae (PCR) Not detected, Parainfluenza 1 (PCR) Not detected, Parainfluenza 2 (PCR) Not detected, Parainfluenza 3 (PCR) Not detected, Parainfluenza 4 (PCR) Not detected, RSV (PCR) Not detected, Entero/Rhino (PCR) Not detected 01/28/25 23:20 01/28/25 23:20 Orders (Tests/Meds): ED MEDICATIONS Generic Name Dose Route Start Last Admin Trade Name Freq PRN Reason Stop Dose Admin Lactated Ringer's 1,760 mls @ 880 mls/hr 01/29/25 00:22 01/29/25 00:30 Lactated Ringer's 1000 Ml Bag 30 ml/kg infuse over 2 hr (1760 ml) 01/29/25 02:21 880 mls/hr IV Administration .Q2H ONE Ceftriaxone Sodium 1 gm/ 50 mls @ 100 mls/hr 01/29/25 00:30 01/29/25 00:33 Sodium Chloride IV 02/08/25 00:29 100 mls/hr Q24H MAKI Administration Sodium Chloride 10 ml 01/29/25 00:35 01/29/25 00:36 Sodium Chloride 0.9% 10ml Syr (Rad Only) IV 02/28/25 00:34 10 ml NEEDED PRN Administration Maintain IV Site Discontinued Medications Generic Name Dose Route Start Last Admin Trade Name Freq PRN Reason Stop Dose Admin Iopamidol 70 ml 01/29/25 00:35 01/29/25 00:36 Iopamidol-370 (76%);100ml Bottle IV 01/29/25 00:36 70 ml ONCE ONE Administration Lidocaine HCl 5 ml 01/29/25 00:50 01/29/25 01:01 Lidocaine 1% 5ml Pf Vial IJ 01/29/25 00:51 5 ml ONCE ONE Administration Sodium Chloride 40 ml 01/29/25 00:35 01/29/25 00:36 0.9 % Sodium Chloride 50 Ml Vial IV 01/29/25 00:36 40 ml ONCE ONE Administration ORDERS Category Date Time Status CT angio chest PE protocol Stat Cat Scan 01/28/25 23:43 Completed CBC w/Auto Diff [Complete Blood Count Auto Diff] Stat Lab 01/28/25 23:20 Completed CMP [Comprehensive Metabolic Panel] Stat Lab 01/28/25 23:20 Completed Full Resp Panel w/COVID ([facility]) Routine Lab 01/28/25 23:52 Completed Lactic Acid Stat Lab 01/28/25 00:02 Completed Trop I [Troponin I] Stat Lab 01/28/25 23:20 Completed Troponin I Q3H Lab 01/29/25 02:45 Ordered Troponin I Q3H Lab 01/29/25 05:45 Ordered Urinalysis-Acute [Urinalysis and Microscopic] Stat Lab 01/28/25 23:39 Completed Blood Culture Stat Micro 01/29/25 00:20 Received Urine Culture Stat Micro 01/28/25 23:39 Received VBG [Venous Blood Gas] Stat RT 01/28/25 23:43 Completed ECG Request Stat Y 01/28/25 23:43 Ordered Tissue Perfus/Sepsis Re-Eval Sepsis Re-Evaluation Performed: Yes Date Performed: 01/29/25 Time Performed: 01:30 Medical Decision Narrative: In summary, this 64-year-old female with comorbidities described in the HPI presents to the emergency department today with cough, decreased appetite, subjective fever, chills. On initial evaluation patient is tachycardic but otherwise hemodynamically stable, afebrile, she has intermittent mild tachypnea, lungs do not demonstrate any adventitious sounds but breath sounds are somewhat decreased on the right compared to the left, cardiac exam benign aside from mild tachycardia, benign abdomen, GCS 15. Differential diagnosis includes but is not limited to sepsis, pneumonia, PE, ACS, electrolyte abnormality, lactic acidosis, COPD exacerbation, among others. Ruling out multiple recondition stroke my assessment. Based on the above concerns I ordered serum labs, CTA PE, respiratory panel, cardiac workup ECG personally interpreted demonstrates sinus tachycardia, rate 107, borderline right axis deviation, normal [place] and QTc, no STEMI. Labs personally reviewed demonstrate significant leukocytosis, WBC now 20.2 up from 7.5 a few days ago, mild anemia, thrombocythemia present, VBG with normal pH and PCO2 reassuring against COPD exacerbation, VBG lactic normal at 1.1, CMP nonactionable, initial troponin undetectably low less than 0.01, UA negative for findings of infection. With the leukocytosis, tachycardia, and tachypnea patient meets sepsis criteria. Sepsis bolus of fluids was ordered. Given high suspicion for lung infection as the etiology for her sepsis, Rocephin initiated. I selected Rocephin since it is not CYP 450 metabolized and does not impact the metabolism of CYP 450 medications, I am hoping this potentially avoids triggering kai for this patient. CTAPE personally reported demonstrates left lower lobe infiltrate, small right lower lobe infiltrate, no large PE. See radiology read for final interpretation. On reassessment patient is tolerating interventions well so far. She still complaining of headache. Patient had received supraorbital nerve block from previous ER provider and reports significant improvement of headache after receiving this. I also performed supraorbital nerve block. See procedure note for details. Patient had immediate improvement of symptoms. Patient requires admission for continued management of sepsis, pneumonia, and to monitor her reaction to antibiotics since there is a chance that she becomes manic based on her history. Patient is comfortable with this plan. I discussed this case with the hospitalist including my recommendations to consider adding azithromycin to antibiotic coverage assuming patient tolerates the Rocephin well. Again hoping to avoid inducing kai. Hospitalist graciously accepted the patient for admission. Patient was admitted in stable condition. Procedures Risk/Benefits of Procedure(s) Were Explained: Yes (Verbal and written consent provided by patient) Nerve Block Nerve Block 1: Time out performed: Yes Local Anesthetic: lidocaine 1% Amount of anesthesia used (mL): 4 Side: Left and Right Nerve Blocks: other (Supraorbital) Procedure Successful: Yes Patient Tolerated Procedure: well and no complications Complications: none Additional Comments: Significant improvement of symptoms immediately after procedure. Patient tolerated well with no complications Critical Care Critical Care Time Critical Care Time: Yes Attestation: On 01/28/25, the high probability of a clinically significant, sudden or life threatening deterioration of the following system(s) required my full and direct attention, intervention and personal management. The time I documented below is in addition to time spent performing reported procedures but includes the following listed in this critical care notation. Total Time Total Critical Care Time: 35
[2025-01-29 00:28] LABS: Lactate Venous 1.1 mmol/L (0.4-2.0); VBG Base Excess -0.6 mmol/L (-2.4-2.3); VBG HCO3 24.1 mmol/L (23-30); VBG Oxygen Saturation 79.3 % (50-70); VBG PCO2 39.5 mmol/L (35-51); VBG PO2 42.9 mmol/L (28-40); VBG Total CO2 25.4 mmol/L (23-27)
[2025-01-29] MEDS: LACTATED RINGERS 880 ML IV (00:30)
[2025-01-29] MEDS: CEFTRIAXONE 1 GM 1 GM in 0.9 % SODIUM CHLORIDE 50 ML IV (00:33)
[2025-01-29] MEDS: SODIUM CHLORIDE 0.9% 10ML SYR (RAD ONLY) 10 ML IV (00:36)
[2025-01-29] MEDS: IOPAMIDOL-370 (76%);100ML BOTTLE 70 ML IV (00:36)
[2025-01-29] MEDS: 0.9 % SODIUM CHLORIDE 50 ML VIAL 40 ML IV (00:36)
[2025-01-29] MEDS: LIDOCAINE 1% 5ML PF VIAL 5 ML IJ (01:01)
[2025-01-29 01:25] LABS: Human Metapneumovirus Detected (NotDetected)
[2025-01-29 01:30] LABS: Amorphous Sediment,Urine Trace /lpf; Bacteria,Urine 1+ /lpf; RBC,Urine Occasional #/hpf (0-3)
--- NOTE | 2025-01-29 02:27 | PC.NURSE ---
Called report to Spring Mendiola RN
[2025-01-29] MEDS: OXYCODONE 7.5MG W/APAP 325MG TABLET 1 EACH PO ×2 (03:00→11:58)
[2025-01-29] MEDS: diazePAM 5MG TABLET 5 MG PO ×2 (03:00→11:59)
--- NOTE | 2025-01-29 03:27 | P.HP_ITS ---
<Statement entered by Rogers Sosa MD - 01/29/25 19:46> Rounded on patient after nurse practitioner. Personally examined and interviewed patient. Agree with exam findings and care plan as documented. ER consulted medicine for admission due to elevated white count and respiratory symptoms. Concerning for pneumonia. Found to be positive for human metapneumovirus on respiratory panel. Stable on room air during admission. Initiate azithromycin 500 mg once followed by 250 mg daily for 4 more days to treat for COPD exacerbation and pneumonia component. Likely viral in etiology. History of Present Illness *Admission Date: 01/29/25 *Reason for visit:: Pneumonia upper respiratory infection *History of present illness: Ms. Damon who is Jehovah witness, and sure we knew that so she would not receive any blood products. Has a long history of bipolar with intolerance of medication that puts her into manic phase. Patient also has long history of panic attack. This is her third visit to the emergency room since 01/20. She was seen on 01/20 with viral type symptoms received the medication treated and released home. She returned on 01/21 still not feeling well having a significant headache and received a nerve block which cording to the patient in the records helped immensely. She has continued to get more ill also noting that the family members in the household are also ill with similar symptoms. Tonight she returns to the emergency room with a cough findings on scan show left lower lung pneumonia also noting elevated white count of 20,000 noting slight anemia of 11/3 2 for H&H hyponatremia at 133 also urine has 1+ leukocyte. Nasal swab came back as Metapeumovirus positive. Patient's headache could also return so the ER physician performed another nerve block. Talking with the ER physician try not to interfere with her clearance of regular home meds which caused her to go into a manic phase Rocephin has been decided on the as the antibiotic of choice at this time so has received a dose in the emergency room. The patient also has a longstanding history of back pain receiving Percocets and anxiety receiving Valium. This was confirmed records on drug screens. Patient will be admitted to the hospital on being transported to the floor patient reported having a manic attack, versus panic attack. ER physician contacted me, and staff is aware that the patient has had a regular Percocet and Valium ordered also put in pharmacy consult so they would be aware of all that these medication that caused her side effects. Will continue with breathing treatments on the floor, antibiotics, regular medicines to control her bipolar. And noting from what the patient tells me no steroids will be given as that really puts her into a manic phase. [facility] Disclaimer: The information contained in this section may have been updated after the patient was seen, as this information can be updated by other users. Medical History (Updated 01/29/25 @ 03:53 by Gerson Alfaro APRN) Daytime somnolence Postmenopausal bleeding Constipation Constipation Low back pain Herpes genitalis in women Falls Imbalance History of cocaine use Peroneal tendinitis, left leg Left-sided weakness History of stroke Primary osteoarthritis of right knee Acute pain of right knee Left foot pain Patient new to facility Asthma Dyspnea on exertion History of multiple strokes Frequent falls Hyperlipemia Sjogrens syndrome Muscle spasm Dystonia Surgical History (Updated 01/29/25 @ 03:52 by Gerson Alfaro APRN) History of foot surgery History of left oophorectomy History of endometrial ablation H/O cervical spine surgery H/O hernia repair History of tonsillectomy Hx of appendectomy History of cholecystectomy History of arthroplasty of left ankle Family History Other Cancer Coronary artery disease Diabetes FHx: mental illness Hypertension Substance abuse Thyroid disorder Social History (Updated 01/29/25 @ 03:11 by Kisha Mendiola RN) Smoking Status: Former smoker alcohol intake: former substance use type: denies use, former substance user, marijuana, crack/cocaine, opiates and prescription drug current occupational status: disabled Travel in the last 8 weeks?: None household members: significant other housing: house marital status: Have you lived/traveled outside [place] in past 30 days?: No Contact w/someone who lives/traveled outside US past 30 days?: No Exposure to someone with infectious disease in past 14 days?: No Do you have a fever (greater than 100.4 F or 38 C)?: No Have you tested positive for COVID-19?: No Exposed to someone with COVID-19 in past 14 days?: No Do you have a sore throat?: No Do you have a cough?: Yes Do you have any weakness?: Yes Are you experiencing any nausea/vomitting?: No Do you have any diarrhea?: No Are you experiencing any unusual bleeding?: No Do you have any muscle aches/pain?: No Do you have any abdominal pain?: No Are you experiencing loss of taste or smell?: No Other Medical History Have you received the Flu Vaccine for this season: No Have you received the Pneumonia Vaccine: No Review of Systems Review of Systems Review of systems:: pertinent systems reviewed and negative unless documented below Constitutional Constitutional: Reports as per HPI Eyes Eyes: Reports as per HPI ENT Ears, Nose, Mouth, and Throat: Reports as per HPI and Reports facial pain *Cardiovascular Cardiovascular: Reports as per HPI *Respiratory Respiratory: Reports as per HPI, Reports chest congestion, Reports cough and Reports pain with cough *Gastrointestinal Gastrointestinal: Reports as per HPI *Genitourinary Genitourinary: Reports as per HPI *Musculoskeletal Musculoskeletal: Reports as per HPI Integumentary/Breasts Skin/Breast: Reports as per HPI *Neurologic Neurologic: Reports as per HPI Comments: Headache Psychiatric Psychiatric: Reports anxiety, Reports irritability, Reports mood swings and Reports panic attacks Comments: Patient with long history of bipolar and psychiatric issues and multiple medications, also noting chronic pain medicines Hematologic/Lymphatic Hematologic/Lymphatic: Reports as per HPI Allergic/Immunologic Allergic/Immunologic: Reports as per HPI Meds Home Medications and Allergies Home Medications ?Medication ?Instructions ?Recorded ?Confirmed ?Type oxycodone-acetaminophen 7.5 mg-325 1 tab PO TID 01/29/25 History mg tablet polyethylene glycol 3350 17 17 g PO DAILY #510 grams 1 01/29/25 Rx gram/dose oral powder (Miralax) diclofenac sodium 1 % topical gel 2 g topical QID #100 grams 07/19/24 01/29/25 Rx (Voltaren Arthritis Pain) levothyroxine 50 mcg tablet 50 mcg PO DAILY #90 tabs 0 10/06/24 01/29/25 Rx bupropion HCl 300 mg 24 hr tablet, 300 mg PO DAILY #30 tabs 10/21/24 01/29/25 Rx extended release (Wellbutrin XL) lidocaine-prilocaine 2.5 %-2.5 % 0.5 g topical ONCE HI N Pain 10/30/24 01/29/25 History topical cream guaifenesin 600 mg tablet, 600 mg PO DAILY #90 tabs 01/29/25 Rx extended release 12 hr tizanidine 4 mg tablet 4 mg PO Q8H 01/05/25 5 History ondansetron 4 mg disintegrating 4 mg PO Q8H PRN nausea and 01/20/25 01/29/25 Rx tablet vomiting 5 days #10 tabs benzonatate 100 mg capsule 100 mg PO BID PRN Cough #60 caps 01/21/25 01/29/25 Rx doxycycline hyclate 100 mg capsule 100 mg PO BID 5 day s #10 caps 01/21/25 01/29/25 Rx diazepam 5 mg tablet 5 mg PO BID PRN anxiety #60 tabs 01/26/25 01/29/25 Rx fenofibrate nanocrystallized 145 145 mg PO DAILY 01/2901/29/25 History mg tablet lidocaine 5 % topical patch 1 patch transdermal DAILY PRN Pain 01/29/25 01/29/25 History sennosides 8.6 mg tablet (senna) 17.2 mg PO DAILY 10/2401/29/25 History valacyclovir 1 gram tablet 1,000 mg PO DAILY PRN herpe s 01/29/25 01/29/25 History (Valtrex) venlafaxine 150 mg 150 mg PO DAILY 01/29/2510/24 History capsule,extended release 24 hr New Prescriptions to Start Prescriptions: Allergies Allergy/AdvReac Type Severity Reaction Status Date / Time calamine Allergy Verified 01/16/25 14:37 meloxicam (From Mobic) Allergy Verified 01/16/25 14:37 acetaminophen (From Vicodin) AdvReac Mild Verified 01/16/25 14:37 Antihistamines - Alkylamine AdvReac Mild Verified 01/16/25 14:37 aripiprazole (From Abilify) AdvReac Mild Verified 01/16/25 14:37 bacitracin (From Neosporin AdvReac Mild Verified 01/16/25 14:37 ([id number])) brexpiprazole (From Rexulti) AdvReac Mild Verified 01/16/25 14:37 buspirone (From BuSpar) AdvReac Mild Verified 01/16/25 14:37 carbamazepine (From Tegretol) AdvReac Mild Verified 01/16/25 14:37 cariprazine (From Vraylar) AdvReac Mild Verified 01/16/25 14:37 celecoxib (From Celebrex) AdvReac Mild Verified 01/16/25 14:37 chlordiazepoxide (From AdvReac Mild Verified 01/16/25 14:37 Librium) chlorpromazine (From AdvReac Mild Verified 01/16/25 14:37 Thorazine) clomipramine (From Anafranil) AdvReac Mild Verified 01/16/25 14:37 clonazepam (From Klonopin) AdvReac Mild Verified 01/16/25 14:37 codeine AdvReac Mild Verified 01/16/25 14:37 cyclobenzaprine (From AdvReac Mild Verified 01/16/25 14:37 Flexeril) desipramine (From Norpramin) AdvReac Mild Verified 01/16/25 14:37 desvenlafaxine (From Pristiq) AdvReac Mild Verified 01/16/25 14:37 dexmedetomidine AdvReac Mild Verified 01/16/25 14:37 divalproex sodium (From AdvReac Mild Verified 01/16/25 14:37 Depakote) duloxetine (From Cymbalta) AdvReac Mild Verified 01/16/25 14:37 eszopiclone (From Lunesta) AdvReac Mild Verified 01/16/25 14:37 fentanyl AdvReac Mild Verified 01/16/25 14:37 fluoxetine (From Prozac) AdvReac Mild Verified 01/16/25 14:37 hydrocodone (From Vicodin) AdvReac Mild Verified 01/16/25 14:37 ibuprofen AdvReac Mild Verified 01/16/25 14:37 lorazepam (From Ativan) AdvReac Mild Verified 01/16/25 14:37 lurasidone (From Latuda) AdvReac Mild Verified 01/16/25 14:37 meperidine (From Demerol) AdvReac Mild Verified 01/16/25 14:37 methadone AdvReac Mild Verified 01/16/25 14:37 mirtazapine (From Remeron) AdvReac Mild Verified 01/16/25 14:37 morphine AdvReac Mild Verified 01/16/25 14:37 neomycin (From Neosporin AdvReac Mild Verified 01/16/25 14:37 ([id number])) paroxetine (From Paxil) AdvReac Mild Verified 01/16/25 14:37 perphenazine (From Trilafon) AdvReac Mild Verified 01/16/25 14:37 polymyxin B (From Neosporin AdvReac Mild Verified 01/16/25 14:37 ([id number])) propranolol (From Inderal [place]) AdvReac Mild Verified 01/16/25 14:37 quetiapine (From Seroquel) AdvReac Mild Verified 01/16/25 14:37 risperidone (From Risperdal) AdvReac Mild Verified 01/16/25 14:37 sertraline (From Zoloft) AdvReac Mild Verified 01/16/25 14:37 temazepam (From Restoril) AdvReac Mild Verified 01/16/25 14:37 topiramate (From Topamax) AdvReac Mild Verified 01/16/25 14:37 tramadol (From Ultram) AdvReac Mild Verified 01/16/25 14:37 vortioxetine (From AdvReac Mild Verified 01/16/25 14:37 Trintellix) ziprasidone (From Geodon) AdvReac Mild Verified 01/16/25 14:37 zolpidem (From Ambien) AdvReac Mild Verified 01/16/25 14:37 steroids Allergy Mild Uncoded 01/16/25 14:37 Exam Data for Last 24 hours Vital signs and Labs for Last 24 Hours: Temp Pulse Resp BP Pulse Ox O2 Del Method 99.1 F 102 H 19 139/79 96 Room Air 01/29/25 02:54 01/29/25 02:54 01/29/25 02:54 01/29/25 02:54 01/29/25 02:54 01/29/25 02:46 Laboratory Results - last 24 hr 01/28/25 00:02: Lactate 0.6 L 01/28/25 23:20: WBC 20.2 H*, RBC 3.42 L, Hgb 11.0 L, Hct 32.4 L, MCV 94.7, MCH 32.2 H, MCHC 34.0, RDW 12.2, Plt Count 562 H, MPV 10.4, Neut % (Auto) 77.6, Lymph % (Auto) 11.7, [place] % (Auto) 9.3, Eos % (Auto) 0.4, Baso % (Auto) 0.4, Neut # (Auto) 15.7 H, Lymph # (Auto) 2.4, [place] # (Auto) 1.9 H, Eos # (Auto) 0.1, Baso # (Auto) 0.1, Total Counted 100, Neutrophils % (Manual) 75, Lymphocytes % (Manual) 14, Monocytes % (Manual) 10 H, Eosinophils % (Manual) 1, Platelet Estimate Slight increase, Giant Platelets 1+, Polychromasia 1+, Poikilocytosis 1+, Target Cells 1+, Sodium 133 L, Potassium 4.2, Chloride 100, Carbon Dioxide 26, Anion Gap 11.2, BUN 11, Creatinine 0.70, Estimated Creat Clear 52, Estimated GFR 84, Est GFR ( Amer) 102, Glucose 112 H, Calcium 9.8, Total Bilirubin 0.7, AST 38 H, ALT 24, Alkaline Phosphatase 71, Troponin I < 0.01, Total Protein 8.2, Albumin 4.3, Globulin 3.9 H, Albumin/Globulin Ratio 1.1 01/28/25 23:39: Urine Color Yellow, Urine Appearance Clear, Urine pH 7.0, Ur Specific [place] 1.010, Urine Protein Negative, Urine Glucose (UA) Negative, Urine Ketones Negative, Urine Blood Negative, Urine Nitrate Negative, Urine Bilirubin Negative, Urine Urobilinogen 1.0, Ur Leukocyte Esterase 1+ A, Urine RBC Occasional, Urine WBC 3-5, Ur Squamous Epith Cells 5-10, Amorphous Sediment Trace, Urine Bacteria 1+ 01/28/25 23:43: VBG pH 7.40, VBG pCO2 39.5, VBG pO2 42.9 H, VBG HCO3 24.1, VBG Total CO2 25.4, VBG O2 Saturation 79.3 H, VBG Base Excess -0.6, VBG Lactic Acid 1.1 01/28/25 23:52: Chlamy pneumoniae PCR Not detected, Adenovirus (PCR) Not detected, B. pertussis DNA (PCR) Not detected, Coronavirus OC43 (PCR) Not detected, Coronavirus HKU1 (PCR) Not detected, Coronavirus 229E (PCR) Not detected, SARS-CoV-2 (PCR) Not detected, Coronavirus NL63 (PCR) Not detected, Human Metapneumovir PCR Detected A, Influenza A (H1) PCR Not detected, Influ A (H1N1/09) PCR Not detected, Influenza A (H3) PCR Not detected, Influenza Type A (PCR) Not detected, Influenza Type B (PCR) Not detected, M. pneumoniae (PCR) Not detected, Parainfluenza 1 (PCR) Not detected, Parainfluenza 2 (PCR) Not detected, Parainfluenza 3 (PCR) Not detected, Parainfluenza 4 (PCR) Not detected, RSV (PCR) Not detected, Entero/Rhino (PCR) Not detected I & O for Last 24 hours: Intake & Output 01/26/25 01/27/25 01/28/25 01/29/25 05:59 05:59 05:59 05:59 Weight 129 lb Radiology Reports for the Last 24 Hours: No pulmonary emboli are identified. Small branch assessment in the lung bases was nondiagnostic due to respiratory motion. 2. There is moderate left and mild right basilar airspace disease concerning for pneumonia. There is mild bronchial thickening with a few subsegmental bronchial occlusions in the lung bases as well, possibly mucous plugging/secretions versus small volume aspirated content, consider aspiration pneumonia. 3. Mildly enlarged left hilar nodes. Constitutional Constitutional: mild distress, average body habitus and cooperative *Routine HEENT Exam Head: Present normocephalic and atraumatic Eye: Present EOMI, PERRL and normal accommodation ENT: Present mucous membranes moist, oropharynx clear and nares patent *Routine Neck Exam Neck: Present supple and full ROM Comments: No neck tenderness found, thyroid of normal size no lymphadenopathy found *Routine Respiratory Exam Respiratory: Present CTA bilaterally, rhonchi, wheezes, normal respiratory effort, able to speak in complete sentences and symmetric chest movement Comments: Posterior bases some wheezing some rhonchi heard, difficult to evaluate with coughing *Routine Cardiovascular Exam Cardiovascular: Present RRR, Normal S1, Normal S2 and tachycardia *Routine Abdominal Exam Abdominal: Present soft Comments: No tenderness no nausea or vomiting *Routine Rectal Exam Rectal:: deferred *Routine Genitalia Exam Genitalia:: deferred *Routine Extremities Exam Extremities: Present full ROM and pulses intact Comments: Moves all limbs well no signs of edema, positive pulses *Routine Skin Exam Skin: Present intact, dry, warm and normal turgor Comments: No signs of rash or lesions or petechiae *Routine Neurological Exam Neurological: Present alert, oriented X3, CN II-XII intact, normal tone, vision grossly intact and hearing grossly intact Comments: Patient is alert answers questions well no signs of weakness no signs of neurological deficits memory is good Routine Psychiatric Exam Psychiatric: Present normal affect, normal thought process, cooperative, good insight and good judgment Comments: Patient explains her fragility when it comes to getting anxious having panic attacks, and she does not want to be in a manic phase because she says people are not treated well by her, Had full long history of medications that cause her difficulty and what works for her H&P: Result Impressions 1. Pneumonia with respiratory virus causing severe coughing 2. Bipolar with history of manic and panic attacks 3. Elevated white count related to above with questionable urinary tract infection due to positive leukocytes Imaging and Cardiology CT scan - chest: Status: image reviewed by me Additional comments: No pulmonary emboli are identified. Small branch assessment in the lung bases was nondiagnostic due to respiratory motion. 2. There is moderate left and mild right basilar airspace disease concerning for pneumonia. There is mild bronchial thickening with a few subsegmental bronchial occlusions in the lung bases as well, possibly mucous plugging/secretions versus small volume aspirated content, consider aspiration pneumonia. 3. Mildly enlarged left hilar nodes. Assessment and Plan *Assessment and plan (1) Sepsis: Status: Acute Qualifiers: Sepsis type: sepsis due to unspecified organism Sepsis acute organ dysfunction status: unspecified Qualified Code(s): A41.9 - Sepsis, unspecified organism Category: Medical Code(s): A41.9 - Sepsis, unspecified organism (2) Pneumonia: Status: Acute Qualifiers: Pneumonia type: due to unspecified organism Laterality: left Lung location: lower lobe of lung Qualified Code(s): J18.9 - Pneumonia, unspecified organism Category: Medical Code(s): J18.9 - Pneumonia, unspecified organism (3) Bipolar 1 disorder: Status: Acute Category: Medical Code(s): F31.9 - Bipolar disorder, unspecified (4) Mood disorder: Status: Chronic Category: Medical Code(s): F39 - Unspecified mood [affective] disorder (5) LASHA (generalized anxiety disorder): Status: Chronic Category: Medical Code(s): F41.1 - Generalized anxiety disorder (6) Headache: Status: Acute Qualifiers: Headache type: tension-type Headache chronicity pattern: episodic headache Intractability: intractable Qualified Code(s): G44.211 - Episodic tension-type headache, intractable Category: Medical Code(s): R51.9 - Headache, unspecified (7) UTI (urinary tract infection): Status: Acute Qualifiers: Hematuria presence: without hematuria Urinary tract infection type: site unspecified Qualified Code(s): N39.0 - Urinary tract infection, site not specified Category: Medical Code(s): N39.0 - Urinary tract infection, site not specified (8) Lumbar spine pain: Status: Acute Category: Medical Code(s): M54.50 - Low back pain, unspecified (9) Chronic narcotic use: Status: Chronic Category: Social Hx Code(s): F11.90 - Opioid use, unspecified, uncomplicated Plan 1. Patient will be admitted to the floor. Will continue antibiotics breathing treatment and try to decrease the amount of coughing the patient is having. Will evaluate and continue the home meds presently placing her on pain medication and Valium for tonight. Monitor for interference of her regular home meds so that she does not go into a manic phase or have panic attacks. 2. Monitor labs and adjust treatments as needed
[2025-01-29 05:30] LABS: Troponin I < 0.01 ng/ml (0.00-0.034)
[2025-01-29 08:13] LABS: Troponin I < 0.01 ng/ml (0.00-0.034)
[2025-01-29] MEDS: BENZONATATE 100MG CAPSULE 100 MG PO ×2 (09:06→13:45)
[2025-01-29] MEDS: guaiFENesin 600 MG TAB.ER.12H 1200 MG PO (09:06)
[2025-01-29] MEDS: ACETAMINOPHEN 325MG TAB 650 MG PO (09:09)
--- NOTE | 2025-01-29 13:54 | EXP.DC.SUM ---
General Admission date:: 01/29/25 Discharge date: 01/29/25 HPI HPI HPI: Ms. Damon who is Jehovah witness, and sure we knew that so she would not receive any blood products. Has a long history of bipolar with intolerance of medication that puts her into manic phase. Patient also has long history of panic attack. This is her third visit to the emergency room since 01/20. She was seen on 01/20 with viral type symptoms received the medication treated and released home. She returned on 01/21 still not feeling well having a significant headache and received a nerve block which cording to the patient in the records helped immensely. She has continued to get more ill also noting that the family members in the household are also ill with similar symptoms. Tonight she returns to the emergency room with a cough findings on scan show left lower lung pneumonia also noting elevated white count of 20,000 noting slight anemia of 11/3 2 for H&H hyponatremia at 133 also urine has 1+ leukocyte. Nasal swab came back as Metapeumovirus positive. Patient's headache could also return so the ER physician performed another nerve block. Talking with the ER physician try not to interfere with her clearance of regular home meds which caused her to go into a manic phase Rocephin has been decided on the as the antibiotic of choice at this time so has received a dose in the emergency room. The patient also has a longstanding history of back pain receiving Percocets and anxiety receiving Valium. This was confirmed records on drug screens. Patient will be admitted to the hospital on being transported to the floor patient reported having a manic attack, versus panic attack. ER physician contacted me, and staff is aware that the patient has had a regular Percocet and Valium ordered also put in pharmacy consult so they would be aware of all that these medication that caused her side effects. Will continue with breathing treatments on the floor, antibiotics, regular medicines to control her bipolar. And noting from what the patient tells me no steroids will be given as that really puts her into a manic phase. Exam Data for Last 24 hours Vital signs and Labs for Last 24 Hours: Temp Pulse Resp BP Pulse Ox O2 Del Method 98 F 88 17 133/74 95 Room Air 01/29/25 12:01/29/25 12:01/29/25 12:01/29/25 12:25 12:00 01/29/25 13:00 Laboratory Results - last 24 hr 01/28/25 00:02: Lactate 0.6 L 01/28/25 23:20: WBC 20.2 H*, RBC 3.42 L, Hgb 11.0 L, Hct 32.4 L, MCV 94.7, MCH 32.2 H, MCHC 34.0, RDW 12.2, Plt Count 562 H, MPV 10.4, Neut % (Auto) 77.6, Lymph % (Auto) 11.7, [place] % (Auto) 9.3, Eos % (Auto) 0.4, Baso % (Auto) 0.4, Neut # (Auto) 15.7 H, Lymph # (Auto) 2.4, [place] # (Auto) 1.9 H, Eos # (Auto) 0.1, Baso # (Auto) 0.1, Total Counted 100, Neutrophils % (Manual) 75, Lymphocytes % (Manual) 14, Monocytes % (Manual) 10 H, Eosinophils % (Manual) 1, Platelet Estimate Slight increase, Giant Platelets 1+, Polychromasia 1+, Poikilocytosis 1+, Target Cells 1+, Sodium 133 L, Potassium 4.2, Chloride 100, Carbon Dioxide 26, Anion Gap 11.2, BUN 11, Creatinine 0.70, Estimated Creat Clear 52, Estimated GFR 84, Est GFR ( Amer) 102, Glucose 112 H, Calcium 9.8, Total Bilirubin 0.7, AST 38 H, ALT 24, Alkaline Phosphatase 71, Troponin I < 0.01, Total Protein 8.2, Albumin 4.3, Globulin 3.9 H, Albumin/Globulin Ratio 1.1 01/28/25 23:39: Urine Color Yellow, Urine Appearance Clear, Urine pH 7.0, Ur Specific Spearfish 1.010, Urine Protein Negative, Urine Glucose (UA) Negative, Urine Ketones Negative, Urine Blood Negative, Urine Nitrate Negative, Urine Bilirubin Negative, Urine Urobilinogen 1.0, Ur Leukocyte Esterase 1+ A, Urine RBC Occasional, Urine WBC 3-5, Ur Squamous Epith Cells 5-10, Amorphous Sediment Trace, Urine Bacteria 1+ 01/28/25 23:43: VBG pH 7.40, VBG pCO2 39.5, VBG pO2 42.9 H, VBG HCO3 24.1, VBG Total CO2 25.4, VBG O2 Saturation 79.3 H, VBG Base Excess -0.6, VBG Lactic Acid 1.1 01/28/25 23:52: Chlamy pneumoniae PCR Not detected, Adenovirus (PCR) Not detected, B. pertussis DNA (PCR) Not detected, Coronavirus OC43 (PCR) Not detected, Coronavirus HKU1 (PCR) Not detected, Coronavirus 229E (PCR) Not detected, SARS-CoV-2 (PCR) Not detected, Coronavirus NL63 (PCR) Not detected, Human Metapneumovir PCR Detected A, Influenza A (H1) PCR Not detected, Influ A (H1N1/09) PCR Not detected, Influenza A (H3) PCR Not detected, Influenza Type A (PCR) Not detected, Influenza Type B (PCR) Not detected, M. pneumoniae (PCR) Not detected, Parainfluenza 1 (PCR) Not detected, Parainfluenza 2 (PCR) Not detected, Parainfluenza 3 (PCR) Not detected, Parainfluenza 4 (PCR) Not detected, RSV (PCR) Not detected, Entero/Rhino (PCR) Not detected 01/29/25 03:20: Troponin I < 0.01 01/29/25 06:51: Troponin I < 0.01 I & O for Last 24 hours: Intake & Output 01/26/25 01/27/25 01/28/25 01/29/25 23:59 23:59 23:59 23:59 Intake Total 420 / 420 Output Total 0 / 0 Balance 420 / 420 Weight 58.513 kg 58.513 kg Microbiology Reports for the Last 24 Hours: Microbiology 01/29/25 09:15 Sputum - Expectorated Sputum Gram Stain - Final Constitutional Constitutional: no acute distress *Routine HEENT Exam Head: Present normocephalic Eye: Present EOMI and PERRL ENT: Present mucous membranes moist *Routine Neck Exam Neck: Present supple; Absent lymphadenopathy *Routine Respiratory Exam Respiratory: Present CTA bilaterally *Routine Cardiovascular Exam Cardiovascular: Present RRR *Routine Abdominal Exam Abdominal: Present soft and normoactive bowel sounds; Absent tenderness *Routine Extremities Exam Extremities: Absent cyanosis, clubbing or edema *Routine Skin Exam Skin: Present warm; Absent rash *Routine Neurological Exam Neurological: Present alert and oriented X3 Results Data Completed and Pending Labs on day of discharge: Labs from last 24 hours 01/29/25 01/29/25 01/28/25 06:51 03:20 23:52 WBC RBC Hgb Hct MCV MCH MCHC RDW Plt Count MPV Neut % (Auto) Lymph % (Auto) [place] % (Auto) Eos % (Auto) Baso % (Auto) Neut # (Auto) Lymph # (Auto) [place] # (Auto) Eos # (Auto) Baso # (Auto) Total Counted Neutrophils % (Manual) Lymphocytes % (Manual) Monocytes % (Manual) Eosinophils % (Manual) Platelet Estimate Giant Platelets Polychromasia Poikilocytosis Target Cells VBG pH VBG pCO2 VBG pO2 VBG HCO3 VBG Total CO2 VBG O2 Saturation VBG Base Excess VBG Lactic Acid Sodium Potassium Chloride Carbon Dioxide Anion Gap BUN Creatinine Estimated Creat Clear Estimated GFR Est GFR ( Amer) Glucose Lactate Calcium Total Bilirubin AST ALT Alkaline Phosphatase Troponin I < 0.01 < 0.01 Total Protein Albumin Globulin Albumin/Globulin Ratio Urine Color Urine Appearance Urine pH Ur Specific Spear[place] Urine Protein Urine Glucose (UA) Urine Ketones Urine Blood Urine Nitrate Urine Bilirubin Urine Urobilinogen Ur Leukocyte Esterase Urine RBC Urine WBC Ur Squamous Epith Cells Amorphous Sediment Urine Bacteria Chlamy pneumoniae PCR Not detected Adenovirus (PCR) Not detected B. pertussis DNA (PCR) Not detected Coronavirus OC43 (PCR) Not detected Coronavirus HKU1 (PCR) Not detected Coronavirus 229E (PCR) Not detected SARS-CoV-2 (PCR) Not detected Coronavirus NL63 (PCR) Not detected Human Metapneumovir PCR Detected A Influenza A (H1) PCR Not detected Influ A (H1N1/09) PCR Not detected Influenza A (H3) PCR Not detected Influenza Type A (PCR) Not detected Influenza Type B (PCR) Not detected M. pneumoniae (PCR) Not detected Parainfluenza 1 (PCR) Not detected Parainfluenza 2 (PCR) Not detected Parainfluenza 3 (PCR) Not detected Parainfluenza 4 (PCR) Not detected RSV (PCR) Not detected Entero/Rhino (PCR) Not detected 01/28/25 01/28/25 01/28/25 23:43 23:39 23:20 WBC 20.2 H* RBC 3.42 L Hgb 11.0 L Hct 32.4 L MCV 94.7 MCH 32.2 H MCHC 34.0 RDW 12.2 Plt Count 562 H MPV 10.4 Neut % (Auto) 77.6 Lymph % (Auto) 11.7 [place] % (Auto) 9.3 Eos % (Auto) 0.4 Baso % (Auto) 0.4 Neut # (Auto) 15.7 H Lymph # (Auto) 2.4 [place] # (Auto) 1.9 H Eos # (Auto) 0.1 Baso # (Auto) 0.1 Total Counted 100 Neutrophils % (Manual) 75 Lymphocytes % (Manual) 14 Monocytes % (Manual) 10 H Eosinophils % (Manual) 1 Platelet Estimate Slight increase Giant Platelets 1+ Polychromasia 1+ Poikilocytosis 1+ Target Cells 1+ VBG pH 7.40 VBG pCO2 39.5 VBG pO2 42.9 H VBG HCO3 24.1 VBG Total CO2 25.4 VBG O2 Saturation 79.3 H VBG Base Excess -0.6 VBG Lactic Acid 1.1 Sodium 133 L Potassium 4.2 Chloride 100 Carbon Dioxide 26 Anion Gap 11.2 BUN 11 Creatinine 0.70 Estimated Creat Clear 52 Estimated GFR 84 Est GFR ( Amer) 102 Glucose 112 H Lactate Calcium 9.8 Total Bilirubin 0.7 AST 38 H ALT 24 Alkaline Phosphatase 71 Troponin I < 0.01 Total Protein 8.2 Albumin 4.3 Globulin 3.9 H Albumin/Globulin Ratio 1.1 Urine Color Yellow Urine Appearance Clear Urine pH 7.0 Ur Specific Spearfish 1.010 Urine Protein Negative Urine Glucose (UA) Negative Urine Ketones Negative Urine Blood Negative Urine Nitrate Negative Urine Bilirubin Negative Urine Urobilinogen 1.0 Ur Leukocyte Esterase 1+ A Urine RBC Occasional Urine WBC 3-5 Ur Squamous Epith Cells 5-10 Amorphous Sediment Trace Urine Bacteria 1+ Chlamy pneumoniae PCR Adenovirus (PCR) B. pertussis DNA (PCR) Coronavirus OC43 (PCR) Coronavirus HKU1 (PCR) Coronavirus 229E (PCR) SARS-CoV-2 (PCR) Coronavirus NL63 (PCR) Human Metapneumovir PCR Influenza A (H1) PCR Influ A (H1N1/09) PCR Influenza A (H3) PCR Influenza Type A (PCR) Influenza Type B (PCR) M. pneumoniae (PCR) Parainfluenza 1 (PCR) Parainfluenza 2 (PCR) Parainfluenza 3 (PCR) Parainfluenza 4 (PCR) RSV (PCR) Entero/Rhino (PCR) 01/28/25 00:02 WBC RBC Hgb Hct MCV MCH MCHC RDW Plt Count MPV Neut % (Auto) Lymph % (Auto) [place] % (Auto) Eos % (Auto) Baso % (Auto) Neut # (Auto) Lymph # (Auto) [place] # (Auto) Eos # (Auto) Baso # (Auto) Total Counted Neutrophils % (Manual) Lymphocytes % (Manual) Monocytes % (Manual) Eosinophils % (Manual) Platelet Estimate Giant Platelets Polychromasia Poikilocytosis Target Cells VBG pH VBG pCO2 VBG pO2 VBG HCO3 VBG Total CO2 VBG O2 Saturation VBG Base Excess VBG Lactic Acid Sodium Potassium Chloride Carbon Dioxide Anion Gap BUN Creatinine Estimated Creat Clear Estimated GFR Est GFR ( Amer) Glucose Lactate 0.6 L Calcium Total Bilirubin AST ALT Alkaline Phosphatase Troponin I Total Protein Albumin Globulin Albumin/Globulin Ratio Urine Color Urine Appearance Urine pH Ur Specific [place] Urine Protein Urine Glucose (UA) Urine Ketones Urine Blood Urine Nitrate Urine Bilirubin Urine Urobilinogen Ur Leukocyte Esterase Urine RBC Urine WBC Ur Squamous Epith Cells Amorphous Sediment Urine Bacteria Chlamy pneumoniae PCR Adenovirus (PCR) B. pertussis DNA (PCR) Coronavirus OC43 (PCR) Coronavirus HKU1 (PCR) Coronavirus 229E (PCR) SARS-CoV-2 (PCR) Coronavirus NL63 (PCR) Human Metapneumovir PCR Influenza A (H1) PCR Influ A (H1N1/09) PCR Influenza A (H3) PCR Influenza Type A (PCR) Influenza Type B (PCR) M. pneumoniae (PCR) Parainfluenza 1 (PCR) Parainfluenza 2 (PCR) Parainfluenza 3 (PCR) Parainfluenza 4 (PCR) RSV (PCR) Entero/Rhino (PCR) DS: Diagnosis Discharge Diagnosis (1) Sepsis: Status: Acute Code(s): A41.9 - Sepsis, unspecified organism Qualifiers: Sepsis acute organ dysfunction status: unspecified Sepsis type: sepsis due to unspecified organism Qualified Code(s): A41.9 - Sepsis, unspecified organism (2) Pneumonia: Status: Acute Code(s): J18.9 - Pneumonia, unspecified organism Qualifiers: Laterality: left Lung location: lower lobe of lung Pneumonia type: due to unspecified organism Qualified Code(s): J18.9 - Pneumonia, unspecified organism (3) Bipolar 1 disorder: Status: Acute Code(s): F31.9 - Bipolar disorder, unspecified (4) Mood disorder: Status: Chronic Code(s): F39 - Unspecified mood [affective] disorder (5) LASHA (generalized anxiety disorder): Status: Chronic Code(s): F41.1 - Generalized anxiety disorder (6) Headache: Status: Acute Code(s): R51.9 - Headache, unspecified Qualifiers: Headache chronicity pattern: episodic headache Headache type: tension-type Intractability: intractable Qualified Code(s): G44.211 - Episodic tension-type headache, intractable (7) UTI (urinary tract infection): Status: Acute Code(s): N39.0 - Urinary tract infection, site not specified Qualifiers: Hematuria presence: without hematuria Urinary tract infection type: site unspecified Qualified Code(s): N39.0 - Urinary tract infection, site not specified (8) Lumbar spine pain: Status: Acute Code(s): M54.50 - Low back pain, unspecified (9) Chronic narcotic use: Status: Chronic Code(s): F11.90 - Opioid use, unspecified, uncomplicated (10) Human metapneumovirus (hMPV) pneumonia: Status: Acute Code(s): J12.3 - Human metapneumovirus pneumonia Meds Home Medications and Allergies Home Medications ?Medication ?Instructions ?Recorded ?Confirmed ?Type oxycodone-acetaminophen 7.5 mg-325 1 tab PO TID 06/09/24 01/29/25 History mg tablet polyethylene glycol 3350 17 17 g PO DAILY #510 grams 06/12/24 01/29/25 Rx gram/dose oral powder (Miralax) levothyroxine 50 mcg tablet 50 mcg PO DAILY #90 tabs 10/06/24 01/29/25 Rx bupropion HCl 300 mg 24 hr tablet, 300 mg PO DAILY #30 tabs 10/21/24 01/29/25 Rx extended release (Wellbutrin XL) guaifenesin 600 mg tablet, 600 mg PO DAILY #90 tabs 10/31/24 01/29/25 Rx extended release 12 hr tizanidine 4 mg tablet 4 mg PO Q8H 01/05/25 01/29/25 History ondansetron 4 mg disintegrating 4 mg PO Q8H PRN nausea and 01/20/25 01/29/25 Rx tablet vomiting 5 days #10 tabs benzonatate 100 mg capsule 100 mg PO BID PRN Cough #60 caps 01/21/25 01/29/25 Rx diazepam 5 mg tablet 5 mg PO BID PRN anxiety #60 tabs 01/26/25 01/29/25 Rx azithromycin 250 mg tablet See Rx Instructions PO .COMPLEX #6 01/29/25 Rx (Zithromax Z-Vimal) tabs fenofibrate nanocrystallized 145 145 mg PO DAILY 01/29/25 01/29/25 History mg tablet hydrochlorothiazide 12.5 mg tablet 12.5 mg PO DAILY 01/29/25 01/29/25 History lidocaine 5 % topical patch 1 patch transdermal DAILY PRN Pain 01/29/25 01/29/25 History losartan 25 mg tablet 25 mg PO DAILY 01/29/25 01/29/25 History sennosides 8.6 mg tablet (senna) 8.6 mg PO DAILY 01/29/25 01/29/25 History valacyclovir 1 gram tablet 1,000 mg PO DAILY PRN herpes 01/29/25 01/29/25 History (Valtrex) venlafaxine 150 mg 150 mg PO DAILY 01/29/25 01/29/25 History capsule,extended release 24 hr New Prescriptions to Start Prescriptions: azithromycin [Zithromax Z-Vimal] Rogers Sosa Allergies Allergy/AdvReac Type Severity Reaction Status Date / Time calamine Allergy Rash Verified 01/29/25 09:27 meloxicam (From Mobic) Allergy RESTLESS Verified 01/29/25 09:27 LEGS, NAUSEA Antihistamines - Alkylamine AdvReac Mild MANIC Verified 01/29/25 09:27 aripiprazole (From Abilify) AdvReac Mild AGRESSION Verified 01/29/25 09:27 bacitracin (From Neosporin AdvReac Mild MORE RED, Verified 01/29/25 09:27 ([id number])) IRRITATED brexpiprazole (From Rexulti) AdvReac Mild AGRESSIVE Verified 01/29/25 09:27 buspirone (From BuSpar) AdvReac Mild AGRESSIVE Verified 01/29/25 09:27 cariprazine (From Vraylar) AdvReac Mild HIGH ENERGY Verified 01/29/25 09:27 celecoxib (From Celebrex) AdvReac Mild Headache Verified 01/29/25 09:27 chlordiazepoxide (From AdvReac Mild SHAKES Verified 01/29/25 09:27 Librium) chlorpromazine (From AdvReac Mild MANIC Verified 01/29/25 09:27 Thorazine) clomipramine (From Anafranil) AdvReac Mild RLS Verified 01/29/25 09:27 clonazepam (From Klonopin) AdvReac Mild HIGH ENERGY Verified 01/29/25 09:27 codeine AdvReac Mild Anaphylaxis Verified 01/29/25 09:27 cyclobenzaprine (From AdvReac Mild RLS Verified 01/29/25 09:27 Flexeril) desipramine (From Norpramin) AdvReac Mild RLS Verified 01/29/25 09:27 desvenlafaxine (From Pristiq) AdvReac Mild AGRESIVE Verified 01/29/25 09:27 dexmedetomidine AdvReac Mild RLS Verified 01/29/25 09:27 divalproex sodium (From AdvReac Mild HEADACHE, Verified 01/29/25 09:27 Depakote) SWELLING duloxetine (From Cymbalta) AdvReac Mild AGRESSIVE Verified 01/29/25 09:27 eszopiclone (From Lunesta) AdvReac Mild NOT Verified 01/29/25 09:27 AFFECTIVE fluoxetine (From Prozac) AdvReac Mild MANIC Verified 01/29/25 09:27 hydrocodone (From Vicodin) AdvReac Mild ITCHING Verified 01/29/25 09:27 ibuprofen AdvReac Mild RLS Verified 01/29/25 09:27 lorazepam (From Ativan) AdvReac Mild RLS Verified 01/29/25 09:27 lurasidone (From Latuda) AdvReac Mild HYPER Verified 01/29/25 09:27 meperidine (From Demerol) AdvReac Mild RLS Verified 01/29/25 09:27 mirtazapine (From Remeron) AdvReac Mild RLS Verified 01/29/25 09:27 morphine AdvReac Mild Anaphylaxis Verified 01/29/25 09:27 neomycin (From Neosporin AdvReac Mild REDNESS Verified 01/29/25 09:27 ([id number])) paroxetine (From Paxil) AdvReac Mild RLS Verified 01/29/25 09:27 perphenazine (From Trilafon) AdvReac Mild RLS Verified 01/29/25 09:27 polymyxin B (From Neosporin AdvReac Mild REDNESS Verified 01/29/25 09:27 ([id number])) propranolol (From Inderal [place]) AdvReac Mild RLS Verified 01/29/25 09:27 quetiapine (From Seroquel) AdvReac Mild MANIC Verified 01/29/25 09:27 risperidone (From Risperdal) AdvReac Mild AGRESSIVE Verified 01/29/25 09:27 temazepam (From Restoril) AdvReac Mild HYPER Verified 01/29/25 09:27 topiramate (From Topamax) AdvReac Mild RLS Verified 01/29/25 09:27 tramadol (From Ultram) AdvReac Mild HYPER Verified 01/29/25 09:27 vortioxetine (From AdvReac Mild HYPER Verified 01/29/25 09:27 Trintellix) ziprasidone (From Geodon) AdvReac Mild HYPER Verified 01/29/25 09:27 zolpidem (From Ambien) AdvReac Mild HYPER Verified 01/29/25 09:27 acetaminophen (From Vicodin) AdvReac Hallucinati Verified 01/29/25 09:27 ng steroids Allergy Mild AGRESSION Uncoded 01/29/25 09:27 Discharge Plan Disposition Patient Disposition: Home, Self-Care Condition: Good Discharge Order Discharge Orders: Discharge Order (Routine); Ordered 01/29/25 Ordered By: Rogers Sosa Follow up Plan Follow up with: Regan Navarrete APRN [Primary Care Provider, Family Practice] - 02/06/25 1:40 pm Prescriptions/Medication Reconciliation: New azithromycin [Zithromax Z-Vimal] 250 mg tablet See Rx Instructions .ROUTE .COMPLEX Qty: 6 0RF Rx Instructions: For 250 mg dose pack: take 500 mg today (day 1), then 250 mg for 4 days (days 2-5) Continued guaifenesin 600 mg tablet extended release 12hr 600 mg PO DAILY Qty: 90 2RF tizanidine 4 mg tablet 4 mg PO Q8H Patient Comments: TAKE ONE TABLET BY MOUTH EVERY 8 HOURS levothyroxine 50 mcg tablet 50 mcg PO DAILY Qty: 90 0RF bupropion HCl [Wellbutrin XL] 300 mg tablet extended release 24 hr 300 mg PO DAILY Qty: 30 2RF diazepam 5 mg tablet 5 mg PO BID PRN (Reason: anxiety) Qty: 60 0RF polyethylene glycol 3350 [Miralax] 17 gram/dose powder 17 g PO DAILY Qty: 510 0RF benzonatate 100 mg capsule 100 mg PO BID PRN (Reason: Cough) Qty: 60 0RF oxycodone-acetaminophen 7.5-325 mg tablet 1 tab PO TID ondansetron 4 mg tablet,disintegrating 4 mg PO Q8H PRN (Reason: nausea and vomiting) 5 Days Qty: 10 0RF sennosides [senna] 8.6 mg tablet 8.6 mg PO DAILY Rx Instructions: TAKE ONE TABLET BY MOUTH ONCE A DAY NEEDED FOR CONSTIPATION valacyclovir [Valtrex] 1 gram tablet 1,000 mg PO DAILY PRN (Reason: herpes) venlafaxine 150 mg capsule,extended release 24hr 150 mg PO DAILY Rx Instructions: TAKE ONE CAPSULE BY MOUTH ONCE A DAY lidocaine 5 % adhesive patch,medicated 1 patch transdermal DAILY PRN (Reason: Pain) Rx Instructions: APPLY 1 PATCH TOPICALLY TO MOST PAINFUL AREA AND LEAVE ON FOR 12 HOURS THEN REMOVE AND LEAVE OFF FOR 12 HOURS fenofibrate nanocrystallized 145 mg tablet 145 mg PO DAILY Rx Instructions: TAKE ONE TABLET BY MOUTH ONCE A DAY losartan 25 mg tablet 25 mg PO DAILY Patient Comments: TAKE ONE TABLET BY MOUTH ONCE A DAY hydrochlorothiazide 12.5 mg tablet 12.5 mg PO DAILY Discontinued doxycycline hyclate 100 mg capsule 100 mg PO BID 5 Days Qty: 10 0RF Problem Reconciliation Problems Reviewed?: Yes Patient Discharge Instructions ACTIVITY: Continue current activity DIET: continue same diet Patient Instructions: DI for Pneumonia -- Adult, DI for Sepsis -- Adult, Stop Light Pneumonia, Stop Light Infection Print Language: Barbadian Providers Primary Care Provider: Regan Navarrete Provider: Rogers Sosa Attending Provider: Rogers Sosa
--- NOTE | 2025-01-30 10:30 | SW/DCPLANNER ---
Spoke with patient on the phone. Patient stated that she is doing good. Patient stated that she is aware of her upcoming appointment. Patient stated that she was able to get her new medicine and that they brought it straight to her. Patient stated that she has no concerns or questions at this time. Coleen Mcfadden
--- NOTE | 2025-01-31 10:45 | PC.NURSE ---
Urine culture results forwarded to hospitalist.
== END 2025-01-29 16:36 | disposition home or self-care (01) | DRG 871 ==
LOC: ER 23:45 → 2ND 01-29 02:36
PROVIDERS: Admitting Provider Internal Medicine Adolescent Medicine; Emergency Provider Emergency Medicine; PCP Nurse Practitioner Family; Visit Provider Internal Medicine Adolescent Medicine
DX: A41.9 Sepsis, unspecified organism (principal); J12.3 Human metapneumovirus pneumonia; N39.0 Urinary tract infection, site not specified; J44.1 Chronic obstructive pulmonary disease with (acute) exacerbation; J44.0 Chronic obstructive pulmonary disease with (acute) lower respiratory infection; E87.1 Hypo-osmolality and hyponatremia; F31.9 Bipolar disorder, unspecified; F39 Unspecified mood [affective] disorder; F41.1 Generalized anxiety disorder; G44.211 Episodic tension-type headache, intractable; M54.50 Low back pain, unspecified; F11.90 Opioid use, unspecified, uncomplicated; D64.9 Anemia, unspecified; Z79.899 Other long term (current) drug therapy; Z87.891 Personal history of nicotine dependence
CPT/HCPCS: 36415; 71275; 80053; 81001; 82803; 83605; 84484; 85007; 85025; 87040; 87070; 87086; 87205; 87633; 93005; J0696; J1650; J7120; Q9967

== ENCOUNTER 2025-01-31 21:35 | Emergency (ER) | payer MEDICARE, MEDICAID, SELFPAY ==
[2025-01-31 21:40] VITALS: BP 154/89; PULSE 89; RESP 17; TEMP 36.9; O2SAT 96; BMI 21.6
[2025-01-31 22:00] VITALS: BP 151/79; PULSE 97; RESP 27; O2SAT 98
[2025-01-31 22:30] VITALS: BP 132/90; PULSE 99; RESP 19; O2SAT 100
--- NOTE | 2025-01-31 22:38 | XR_ITS ---
PROCEDURE INFORMATION: Exam: XR Chest Exam date and time: 01/31/2025 11:02 PM Age: 64 years old Clinical indication: Dyspnea TECHNIQUE: Imaging protocol: Radiologic exam of the chest. Views: 1 view. COMPARISON: CT ANGIO CHEST PE PROTOCOL 01/29/2025 12:05 AM FINDINGS: Lungs: Unremarkable. No consolidation. Pleural spaces: Unremarkable. No pleural effusion. No pneumothorax. Heart/Mediastinum: Unremarkable. No cardiomegaly. Bones/joints: Unremarkable. IMPRESSION: No acute findings.
--- NOTE | 2025-01-31 22:40 | HMH.EDGENADL ---
Discharge Plan Disposition Patient Disposition: Xfer Psychiatric Hosp Condition: Fair Prescriptions Prescriptions: No Action guaifenesin 600 mg tablet extended release 12hr 600 mg PO DAILY Qty: 90 2RF tizanidine 4 mg tablet 4 mg PO Q8H Patient Comments: TAKE ONE TABLET BY MOUTH EVERY 8 HOURS levothyroxine 50 mcg tablet 50 mcg PO DAILY Qty: 90 0RF bupropion HCl [Wellbutrin XL] 300 mg tablet extended release 24 hr 300 mg PO DAILY Qty: 30 2RF diazepam 5 mg tablet 5 mg PO BID PRN (Reason: anxiety) Qty: 60 0RF polyethylene glycol 3350 [Miralax] 17 gram/dose powder 17 g PO DAILY Qty: 510 0RF benzonatate 100 mg capsule 100 mg PO BID PRN (Reason: Cough) Qty: 60 0RF oxycodone-acetaminophen 7.5-325 mg tablet 1 tab PO TID ondansetron 4 mg tablet,disintegrating 4 mg PO Q8H PRN (Reason: nausea and vomiting) 5 Days Qty: 10 0RF sennosides [senna] 8.6 mg tablet 8.6 mg PO DAILY Rx Instructions: TAKE ONE TABLET BY MOUTH ONCE A DAY NEEDED FOR CONSTIPATION valacyclovir [Valtrex] 1 gram tablet 1,000 mg PO DAILY PRN (Reason: herpes) venlafaxine 150 mg capsule,extended release 24hr 150 mg PO DAILY Rx Instructions: TAKE ONE CAPSULE BY MOUTH ONCE A DAY lidocaine 5 % adhesive patch,medicated 1 patch transdermal DAILY PRN (Reason: Pain) Rx Instructions: APPLY 1 PATCH TOPICALLY TO MOST PAINFUL AREA AND LEAVE ON FOR 12 HOURS THEN REMOVE AND LEAVE OFF FOR 12 HOURS fenofibrate nanocrystallized 145 mg tablet 145 mg PO DAILY Rx Instructions: TAKE ONE TABLET BY MOUTH ONCE A DAY losartan 25 mg tablet 25 mg PO DAILY Patient Comments: TAKE ONE TABLET BY MOUTH ONCE A DAY hydrochlorothiazide 12.5 mg tablet 12.5 mg PO DAILY azithromycin [Zithromax Z-Vimal] 250 mg tablet See Rx Instructions .ROUTE .COMPLEX Qty: 6 0RF Rx Instructions: For 250 mg dose pack: take 500 mg today (day 1), then 250 mg for 4 days (days 2-5) Referrals Follow up/Referrals: Provider,Referral, MD [Primary Care Provider, Medical] - See instructions Clinical Impressions Clinical Impression: Suicidal ideation, Homicidal ideation, Bipolar disorder Stand Alone Forms Stand Alone Forms: Transfer Record - ED Print Language Print Language: Sami Discharge ED Provider: Margo Keller General Adult HPI <Margo Keller MD - Last Filed: 01/31/25 22:43> General Chief complaint: Psychiatric Symptoms Stated complaint: Psych Time Seen by Provider: 01/31/25 22:26 Mode of Arrival: EMS Source of Information: Patient and EMS Description of Symptoms (Recalled from ER Triage Doc. by RN): Patient to ED with [facility] with complaints of having a manic episde. Patient states that she was sitting at home recovering from recent illness, when her significant other started nagging her about putting something away in the floor which set me off. Patient states that she started breaking dishes in the sink and was angry to which she stated that she wants to kill significant other. Patient denies SI at this time, and responds with now that im calm I dont want to hurt anyone at this time, but he just made me so mad. Patient also states that antibiotics make her have manic episodes, to which patient was recently dc on doxy, and zithromax. History of Present Illness HPI narrative: Patient is a 64-year-old female brought in today for homicidal and suicidal ideation. States that anytime that she takes antibiotics that she gets manic and has recently been on azithromycin for respiratory infection. States that earlier today she states that she was very tired and had some meals at home which were sitting out in her significant other got frustrated with her for them still being out and started griping. She states this really frustrated her she went off the deep and began breaking all the glasses in her house. Subsequently she states she could not calm herself down and felt like she wanted to kill him and also kill herself. She states that she has had many of these episodes in the past was diagnosed with bipolar disorder and has had many manic episodes since 1994 and states that she has had grandiose thoughts significant promiscuity spending money she does not have etc. She feels as though she is currently in a manic episode. She was unable to control her feelings and called 911 because she was concerned she would hurt herself or her . She does have a history of self-harm she states. Has not ingested any substances tonight. Related Data Home Medications ?Medication ?Instructions ?Recorded ?Confirmed oxycodone-acetaminophen 7.5 mg-325 1 tab PO TID 06/09/24 01/29/25 mg tablet tizanidine 4 mg tablet 4 mg PO Q8H 01/05/25 01/29/25 fenofibrate nanocrystallized 145 145 mg PO DAILY 01/29/25 01/29/25 mg tablet hydrochlorothiazide 12.5 mg tablet 12.5 mg PO DAILY 01/29/25 01/29/25 lidocaine 5 % topical patch 1 patch transdermal DAILY PRN Pain 01/29/25 01/29/25 losartan 25 mg tablet 25 mg PO DAILY 01/29/25 01/29/25 sennosides 8.6 mg tablet (senna) 8.6 mg PO DAILY 01/29/25 01/29/25 valacyclovir 1 gram tablet 1,000 mg PO DAILY PRN herpes 01/29/25 01/29/25 (Valtrex) venlafaxine 150 mg 150 mg PO DAILY 01/29/25 01/29/25 capsule,extended release 24 hr Previous Rx's ?Medication ?Instructions ?Recorded polyethylene glycol 3350 17 17 g PO DAILY #510 grams 06/12/24 gram/dose oral powder (Miralax) levothyroxine 50 mcg tablet 50 mcg PO DAILY #90 tabs 10/06/24 bupropion HCl 300 mg 24 hr tablet, 300 mg PO DAILY #30 tabs 10/21/24 extended release (Wellbutrin XL) guaifenesin 600 mg tablet, 600 mg PO DAILY #90 tabs 10/31/24 extended release 12 hr ondansetron 4 mg disintegrating 4 mg PO Q8H PRN nausea and 01/20/25 tablet vomiting 5 days #10 tabs benzonatate 100 mg capsule 100 mg PO BID PRN Cough #60 caps 01/21/25 diazepam 5 mg tablet 5 mg PO BID PRN anxiety #60 tabs 01/26/25 azithromycin 250 mg tablet See Rx Instructions PO .COMPLEX #6 01/29/25 (Zithromax Z-Vimal) tabs Allergies Allergy/AdvReac Type Severity Reaction Status Date / Time calamine Allergy Rash Verified 01/29/25 09:27 meloxicam (From Mobic) Allergy RESTLESS Verified 01/29/25 09:27 LEGS, NAUSEA Antihistamines - Alkylamine AdvReac Mild MANIC Verified 01/29/25 09:27 aripiprazole (From Abilify) AdvReac Mild AGRESSION Verified 01/29/25 09:27 bacitracin (From Neosporin AdvReac Mild MORE RED, Verified 01/29/25 09:27 ([id number])) IRRITATED brexpiprazole (From Rexulti) AdvReac Mild AGRESSIVE Verified 01/29/25 09:27 buspirone (From BuSpar) AdvReac Mild AGRESSIVE Verified 01/29/25 09:27 cariprazine (From Vraylar) AdvReac Mild HIGH ENERGY Verified 01/29/25 09:27 celecoxib (From Celebrex) AdvReac Mild Headache Verified 01/29/25 09:27 chlordiazepoxide (From AdvReac Mild SHAKES Verified 01/29/25 09:27 Librium) chlorpromazine (From AdvReac Mild MANIC Verified 01/29/25 09:27 Thorazine) clomipramine (From Anafranil) AdvReac Mild RLS Verified 01/29/25 09:27 clonazepam (From Klonopin) AdvReac Mild HIGH ENERGY Verified 01/29/25 09:27 codeine AdvReac Mild Anaphylaxis Verified 01/29/25 09:27 cyclobenzaprine (From AdvReac Mild RLS Verified 01/29/25 09:27 Flexeril) desipramine (From Norpramin) AdvReac Mild RLS Verified 01/29/25 09:27 desvenlafaxine (From Pristiq) AdvReac Mild AGRESIVE Verified 01/29/25 09:27 dexmedetomidine AdvReac Mild RLS Verified 01/29/25 09:27 divalproex sodium (From AdvReac Mild HEADACHE, Verified 01/29/25 09:27 Depakote) SWELLING duloxetine (From Cymbalta) AdvReac Mild AGRESSIVE Verified 01/29/25 09:27 eszopiclone (From Lunesta) AdvReac Mild NOT Verified 01/29/25 09:27 AFFECTIVE fluoxetine (From Prozac) AdvReac Mild MANIC Verified 01/29/25 09:27 hydrocodone (From Vicodin) AdvReac Mild ITCHING Verified 01/29/25 09:27 ibuprofen AdvReac Mild RLS Verified 01/29/25 09:27 lorazepam (From Ativan) AdvReac Mild RLS Verified 01/29/25 09:27 lurasidone (From Latuda) AdvReac Mild HYPER Verified 01/29/25 09:27 meperidine (From Demerol) AdvReac Mild RLS Verified 01/29/25 09:27 mirtazapine (From Remeron) AdvReac Mild RLS Verified 01/29/25 09:27 morphine AdvReac Mild Anaphylaxis Verified 01/29/25 09:27 neomycin (From Neosporin AdvReac Mild REDNESS Verified 01/29/25 09:27 ([id number])) paroxetine (From Paxil) AdvReac Mild RLS Verified 01/29/25 09:27 perphenazine (From Trilafon) AdvReac Mild RLS Verified 01/29/25 09:27 polymyxin B (From Neosporin AdvReac Mild REDNESS Verified 01/29/25 09:27 ([id number])) propranolol (From Inderal [place]) AdvReac Mild RLS Verified 01/29/25 09:27 quetiapine (From Seroquel) AdvReac Mild MANIC Verified 01/29/25 09:27 risperidone (From Risperdal) AdvReac Mild AGRESSIVE Verified 01/29/25 09:27 temazepam (From Restoril) AdvReac Mild HYPER Verified 01/29/25 09:27 topiramate (From Topamax) AdvReac Mild RLS Verified 01/29/25 09:27 tramadol (From Ultram) AdvReac Mild HYPER Verified 01/29/25 09:27 vortioxetine (From AdvReac Mild HYPER Verified 01/29/25 09:27 Trintellix) ziprasidone (From Geodon) AdvReac Mild HYPER Verified 01/29/25 09:27 zolpidem (From Ambien) AdvReac Mild HYPER Verified 01/29/25 09:27 acetaminophen (From Vicodin) AdvReac Hallucinati Verified 01/29/25 09:27 ng steroids Allergy Mild AGRESSION Uncoded 01/29/25 09:27 [facility] <Margo Keller MD - Last Filed: 01/31/25 22:43> [facility] Disclaimer: The information contained in this section may have been updated after the patient was seen, as this information can be updated by other users. Medical History (Updated 01/31/25 @ 22:40 by Margo Keller MD) Daytime somnolence Postmenopausal bleeding Constipation Constipation Low back pain Herpes genitalis in women Falls Imbalance History of cocaine use Peroneal tendinitis, left leg Left-sided weakness History of stroke Primary osteoarthritis of right knee Acute pain of right knee Left foot pain Patient new to facility Asthma Dyspnea on exertion History of multiple strokes Frequent falls Hyperlipemia Sjogrens syndrome Muscle spasm Dystonia Surgical History (Updated 01/29/25 @ 03:52 by Gerson Alfaro APRN) History of foot surgery History of left oophorectomy History of endometrial ablation H/O cervical spine surgery H/O hernia repair History of tonsillectomy Hx of appendectomy History of cholecystectomy History of arthroplasty of left ankle Family History Other Cancer Coronary artery disease Diabetes FHx: mental illness Hypertension Substance abuse Thyroid disorder Social History (Updated 01/29/25 @ 03:11 by Kisha Mendiola RN) Smoking Status: Current some day smoker alcohol intake: former substance use type: denies use, former substance user, marijuana, crack/cocaine, opiates and prescription drug current occupational status: disabled Travel in the last 8 weeks?: None household members: significant other housing: house marital status: Have you lived/traveled outside [place] in past 30 days?: No Contact w/someone who lives/traveled outside US past 30 days?: No Exposure to someone with infectious disease in past 14 days?: No Do you have a fever (greater than 100.4 F or 38 C)?: No Have you tested positive for COVID-19?: No Exposed to someone with COVID-19 in past 14 days?: No Do you have a sore throat?: No Do you have a cough?: No Do you have any weakness?: No Do you have any diarrhea?: No Are you experiencing any unusual bleeding?: No Do you have any muscle aches/pain?: No Do you have any abdominal pain?: No Are you experiencing loss of taste or smell?: No Other Medical History Have you received the Flu Vaccine for this season: No Have you received the Pneumonia Vaccine: No <Margo Keller MD - Last Filed: 01/31/25 22:43> ROS Obtained: Yes All systems reviewed & no additional complaints except as documented Physical Exam <Margo Keller MD - Last Filed: 01/31/25 22:43> General General appearance: alert and in no apparent distress Respiratory Respiratory exam: Present normal lung sounds bilaterally Cardiovascular Cardiovascular exam: Present regular rate Neurological Exam Neurological exam: Present alert Psychiatric Psychiatric exam: Present other (Patient is very calm currently but still acknowledges homicidal and suicidal ideation at the moment and wants help) Medical Decision Making <Margo Keller MD - Last Filed: 01/31/25 22:43> Medical Records Screening: Per USPSTF and CDC recommendations, given the prevalence of disease in our region, it is our hospital?s policy to screen for HIV and viral Hepatitis for all patients aged 18 and over and those with ongoing risk factors. [place] Inquiry Pt receiving controlled substance: No Vital Signs: 01/31/25 21:40 01/31/25 22:00 01/31/25 22:30 Temperature 98.4 F Temperature Source Oral Pulse Rate 97 H 99 H Pulse Rate [Right] 89 Respiratory Rate 17 27 H 19 Blood Pressure 151/79 H 132/90 Blood Pressure [Right Arm] 154/89 H Blood Pressure Mean [Right Arm] 110 Blood Pressure Source [Right Arm] Automatic Cuff Blood Pressure Position [Right Arm] Supine 02 Sat by Pulse Oximetry 96 98 100 Oxygen Delivery Method Room Air 01/31/25 23:00 01/31/25 23:30 Temperature Temperature Source Pulse Rate 88 94 H Pulse Rate [Right] Respiratory Rate 20 30 H Blood Pressure 146/87 H 158/86 H Blood Pressure [Right Arm] Blood Pressure Mean [Right Arm] Blood Pressure Source [Right Arm] Blood Pressure Position [Right Arm] 02 Sat by Pulse Oximetry 97 95 Oxygen Delivery Method Lab Data Lab Results 01/31/25 22:52: Urine Opiates Screen Negative, Urine Methadone Screen Negative, Ur Barbituates Screen Negative, Ur Phencyclidine Scrn Negative, Ur Amphetamines Screen Negative, U Benzodiazepines Scrn Positive H, Urine Cocaine Screen Negative, U Marijuana (THC) Screen Negative 01/31/25 23:05: WBC 12.1 H D, RBC 3.19 L, Hgb 10.2 L, Hct 30.8 L, MCV 96.6, MCH 32.0 H, MCHC 33.1, RDW 12.5, Plt Count 633 H, MPV 9.5, Neut % (Auto) 50.5, Lymph % (Auto) 32.5, Prowers % (Auto) 9.3, Eos % (Auto) 4.2, Baso % (Auto) 1.2, Neut # (Auto) 6.1, Lymph # (Auto) 3.9, Prowers # (Auto) 1.1 H, Eos # (Auto) 0.5 H, Baso # (Auto) 0.1, Sodium 140, Potassium 3.9, Chloride 103, Carbon Dioxide 29, Anion Gap 11.9, BUN 12, Creatinine 0.80, Estimated Creat Clear 52, Estimated GFR 72, Est GFR ( Amer) 87, Glucose 85, Calcium 10.1, Total Bilirubin 0.3, AST 28 D, ALT 20, Alkaline Phosphatase 62, Total Protein 7.7, Albumin 4.1, Globulin 3.6 H, Albumin/Globulin Ratio 1.1, TSH 1.11, Salicylates < 1.0 L, Acetaminophen < 10 L, Plasma/Serum Alcohol < 10 01/31/25 23:05 01/31/25 23:05 Orders (Tests/Meds): ED MEDICATIONS Generic Name Dose Route Start Last Admin Trade Name Freq PRN Reason Stop Dose Admin Benzocaine/Menthol 1 each 01/31/25 23:49 Cepacol Throat Lozenges 16 Nuvia/Box MM 03/02/25 23:48 NEEDED PRN Cough ORDERS Category Date Time Status CXR --portable [XR chest portable] Stat Exams 01/31/25 22:38 Completed Acetaminophen Stat Lab 01/31/25 23:05 Completed CBC w/Auto Diff [Complete Blood Count Auto Diff] Stat Lab 01/31/25 23:05 Completed CMP [Comprehensive Metabolic Panel] Stat Lab 01/31/25 23:05 Completed Ethanol [Ethyl Alcohol] Stat Lab 01/31/25 23:05 Completed Salicylate Stat Lab 01/31/25 23:05 Completed TSH [Thyroid Stimulating Hormone] Stat Lab 01/31/25 23:05 Completed UDS [Drug Screen,Urine] Stat Lab 01/31/25 22:52 Completed Medical Decision Narrative: 64-year-old with above history and physical. She has a history of bipolar disorder and claims to be in a manic episode but appears very calm at the moment. She does acknowledge homicidal and suicidal ideation she is currently on a one-to-one hold. Given the fact that she has had a recent respiratory infection and has been feeling well we will get basic blood work to make sure that she is medically cleared. Subsequently she will need to go to a psychiatric facility we will try [facility] first. Care will be transitioned to Dr. Tish Bob at 11 PM. <Marco Bob MD - Last Filed: 02/01/25 00:52> Vital Signs: 01/31/25 21:40 01/31/25 22:00 01/31/25 22:30 Temperature 98.4 F Temperature Source Oral Pulse Rate 97 H 99 H Pulse Rate [Right] 89 Respiratory Rate 17 27 H 19 Blood Pressure 151/79 H 132/90 Blood Pressure [Right Arm] 154/89 H Blood Pressure Mean [Right Arm] 110 Blood Pressure Source [Right Arm] Automatic Cuff Blood Pressure Position [Right Arm] Supine 02 Sat by Pulse Oximetry 96 98 100 Oxygen Delivery Method Room Air 01/31/25 23:00 01/31/25 23:30 Temperature Temperature Source Pulse Rate 88 94 H Pulse Rate [Right] Respiratory Rate 20 30 H Blood Pressure 146/87 H 158/86 H Blood Pressure [Right Arm] Blood Pressure Mean [Right Arm] Blood Pressure Source [Right Arm] Blood Pressure Position [Right Arm] 02 Sat by Pulse Oximetry 97 95 Oxygen Delivery Method Lab Data Lab Results 01/31/25 22:52: Urine Opiates Screen Negative, Urine Methadone Screen Negative, Ur Barbituates Screen Negative, Ur Phencyclidine Scrn Negative, Ur Amphetamines Screen Negative, U Benzodiazepines Scrn Positive H, Urine Cocaine Screen Negative, U Marijuana (THC) Screen Negative 01/31/25 23:05: WBC 12.1 H D, RBC 3.19 L, Hgb 10.2 L, Hct 30.8 L, MCV 96.6, MCH 32.0 H, MCHC 33.1, RDW 12.5, Plt Count 633 H, MPV 9.5, Neut % (Auto) 50.5, Lymph % (Auto) 32.5, Prowers % (Auto) 9.3, Eos % (Auto) 4.2, Baso % (Auto) 1.2, Neut # (Auto) 6.1, Lymph # (Auto) 3.9, Prowers # (Auto) 1.1 H, Eos # (Auto) 0.5 H, Baso # (Auto) 0.1, Sodium 140, Potassium 3.9, Chloride 103, Carbon Dioxide 29, Anion Gap 11.9, BUN 12, Creatinine 0.80, Estimated Creat Clear 52, Estimated GFR 72, Est GFR ( Amer) 87, Glucose 85, Calcium 10.1, Total Bilirubin 0.3, AST 28 D, ALT 20, Alkaline Phosphatase 62, Total Protein 7.7, Albumin 4.1, Globulin 3.6 H, Albumin/Globulin Ratio 1.1, TSH 1.11, Salicylates < 1.0 L, Acetaminophen < 10 L, Plasma/Serum Alcohol < 10 Orders (Tests/Meds): ED MEDICATIONS Generic Name Dose Route Start Last Admin Trade Name Freq PRN Reason Stop Dose Admin Benzocaine/Menthol 1 each 01/31/25 23:49 Cepacol Throat Lozenges 16 Nuvia/Box MM 03/02/25 23:48 NEEDED PRN Cough ORDERS Category Date Time Status CXR --portable [XR chest portable] Stat Exams 01/31/25 22:38 Completed Acetaminophen Stat Lab 01/31/25 23:05 Completed CBC w/Auto Diff [Complete Blood Count Auto Diff] Stat Lab 01/31/25 23:05 Completed CMP [Comprehensive Metabolic Panel] Stat Lab 01/31/25 23:05 Completed Ethanol [Ethyl Alcohol] Stat Lab 01/31/25 23:05 Completed Salicylate Stat Lab 01/31/25 23:05 Completed TSH [Thyroid Stimulating Hormone] Stat Lab 01/31/25 23:05 Completed UDS [Drug Screen,Urine] Stat Lab 01/31/25 22:52 Completed Medical Decision Narrative: 64-year-old with above history and physical. She has a history of bipolar disorder and claims to be in a manic episode but appears very calm at the moment. She does acknowledge homicidal and suicidal ideation she is currently on a one-to-one hold. Given the fact that she has had a recent respiratory infection and has been feeling well we will get basic blood work to make sure that she is medically cleared. Subsequently she will need to go to a psychiatric facility we will try [facility] first. Care will be transitioned to Dr. Tish Bob at 11 PM. Bob: Upon my assumption of care patient is stable and resting comfortably. I agree with the assessment and plan from Dr. Keller. She is not combative and does not appear manic clinically at this time but does still report homicidal and suicidal ideation. Labs reviewed by me demonstrate mild leukocytosis significantly improved from the day of admission, CMP nonactionable, UDS positive for benzos which are prescribed to her, Tylenol, salicylate, EtOH negative. Patient on reassessment continues to rest comfortably and is scrolling on phone, behaving appropriately in the ER. She is voluntary to go to psych facility for further evaluation for SI/HI and self-reported kai. Reach out to . At [phone] Philippe and was connected to Dr. Childs who discussed this patient for acceptance to [facility]. We discussed this case including patient's actions tonight and her reports from home as well as reassuring labs and being medically cleared at this time. He graciously accepted the patient for transfer to [facility]. Patient will go via ambulance to [facility]. She is aware of this. She became worked up and nervous because she has reportedly never been to that psych facility before and was going to refuse transfer, however I was able to verbally de-escalate the situation and patient is agreeable to go after further explanation of what [facility] is and the reasons that she is going. She is agreeable. Patient was assessed immediately prior to transfer and remains hemodynamically stable, airway patent, appropriate for transfer. She was transferred in stable condition. Critical Care <Margo Keller MD - Last Filed: 01/31/25 22:43> Critical Care Time Critical Care Time: No
[2025-01-31 23:00] VITALS: BP 146/87; PULSE 88; RESP 20; O2SAT 97
[2025-01-31 23:10] LABS: Amphetamine/Metha Screen,Urine Negative ng/ml (<1000); Benzodiazepines Screen,Urine Positive ng/ml (<200)
[2025-01-31 23:11] LABS: Barbiturates Screen,Urine Negative ng/ml (<200)
[2025-01-31 23:12] LABS: Cannabinoid Screen,Urine Negative ng/ml (<50)
[2025-01-31 23:13] LABS: Cocaine Screen,Urine Negative ng/ml (<300); Methadone Screen,Urine Negative ng/ml (<300)
[2025-01-31 23:14] LABS: Opiate Screen,Urine Negative ng/ml (<300); Phencyclidine Screen,Urine Negative ng/ml (<25)
[2025-01-31 23:14] LABS: Basophils # 0.1 K/mm3 (0-0.2); Basophils % 1.2 % (0.1-2.0); Eosinophils # 0.5 Kmm3 (0.0-0.4); Eosinophils % 4.2 % (0.1-12.0); Hematocrit 30.8 % (37.0-47.0); Hemoglobin 10.2 g/dL (12.2-16.2); Immature Granulocytes # 0.28 10^3uL; Immature Granulocytes % 2.3 %; Lymphocytes # 3.9 K/mm3 (0.7-4.5); Lymphocytes % 32.5 % (10-50); Mean Corpuscular HGB Conc 33.1 g/dL (31.8-35.4); Mean Corpuscular Volume 96.6 fl (81-99); Mean Platelet Volume 9.5 fl (7.4-10.4); Monocytes # 1.1 K/mm3 (0.1-1.0); Monocytes % 9.3 % (1.7-9.3); Neutrophils # 6.1 K/mm3 (1.8-7.8); Neutrophils % 50.5 % (37.0-80.0); Nucleated Red Blood Cells # 0 10^3/uL; Nucleated Red Blood Cells % 0 %; Platelet Count 633 K/mm3 (142-424); Red Blood Count 3.19 M/mm3 (4.20-5.40); Red Cell Distribution Width 12.5 % (11.5-17.5); Red Cell Distribution Width-SD 44.2 fL; White Blood Count 12.1 K/mm3 (4.8-10.8)
[2025-01-31 23:30] VITALS: BP 158/86; PULSE 94; RESP 30; O2SAT 95
[2025-01-31 23:37] LABS: Acetaminophen < 10 ug/ml (10-30); Alanine Aminotransferase 20 U/L (12-78); Albumin Level 4.1 g/dl (3.5-5.0); Albumin/Globulin Ratio 1.1 (1.1-1.8); Alkaline Phosphatase 62 U/L (38-126); Anion Gap 11.9 mEq/L (5-15); Aspartate Amino Transferase 28 U/L (14-36); Bilirubin,Total 0.3 mg/dl (0.2-1.3); Blood Urea Nitrogen 12 mg/dl (7-17); Calcium 10.1 mg/dl (8.4-10.2); Carbon Dioxide 29 mmol/L (22.0-30.0); Chloride 103 mmol/L (98-107); Creatinine Clearance Estimated 52 mL/min (50-200); Estimated Glomerular Filt Rate 72 ml/min (>60); Ethyl Alcohol < 10 mg/dl (0-10); GFR (African American) 87 ML/MIN (>60); Globulin 3.6 g/dL (1.3-3.2); Glucose 85 mg/dl (74-100); Potassium 3.9 mmoL/L (3.5-5.1); Salicylate < 1.0 mg/dL (2.0-20.0); Sodium 140 mmol/L (136-145); Total Protein,Serum 7.7 g/dl (6.3-8.2)
--- NOTE | 2025-02-01 00:03 | PC.NURSE ---
Called [facility] for a possible transfer to [facility]
[2025-02-01 00:10] LABS: Thyroid Stimulating Hormone 1.11 uIU/mL (0.465-4.68)
--- NOTE | 2025-02-01 00:12 | PC.NURSE ---
Dr. Bob on phone with physician at [facility] at this time.
--- NOTE | 2025-02-01 00:25 | PC.NURSE ---
Report called to JOB Srinivasan at [facility].
[2025-02-01 00:50] VITALS: BP 152/85; PULSE 94; RESP 15; TEMP 36.8; O2SAT 96
== END 2025-02-01 01:01 ==
PROVIDERS: Emergency Provider Student in an Organized Health Care Education/Training Program
DX: F31.0 Bipolar disorder, current episode hypomanic (principal); R45.850 Homicidal ideations; R45.851 Suicidal ideations
CPT/HCPCS: 71045; 80053; 80307; 80320; 80329; 84443; 85025; 99285

== ENCOUNTER 2025-02-28 11:21 | Emergency (ER) | payer MEDICARE, MEDICAID, SELFPAY ==
--- OUTSIDE RECORDS SUMMARY | 2025-01-30 09:55 | XMS_ITS ---
Author Organization [facility] Address [address] [place] [address] Care Team Providers Care Emergency Telecommunications Dispatcher Name Role Phone Red Tamayo II Unavailable Jaelyn Guerrero Unavailable Unavailable REASON FOR VISIT 01/30/2025 erx MEDICATIONS Medication SIG (Take, Route, Frequency, Duration) Notes Start Date End Date Status acetaminophen-oxycodo ne 325 mg-7.5 mg 1 tab(s) orally 3 times a day for 28 days January 2025 RX DO NOT FILL SOONER THAN 28 DAYS, (OK TO FILL EARLY, ONLY IF CLOSED) Fax PA request to [phone] or [phone] 01/30/2025 Active acetaminophen-oxycodo ne 325 mg-7.5 mg 1 tab(s) orally 3 times a day for 28 days February 2025 RX DO NOT FILL SOONER THAN 28 DAYS, (OK TO FILL EARLY, ONLY IF CLOSED) Fax PA request to [phone] or [phone] 01/30/2025 Active Encounters Encounter Location Date Provider Diagnosis [facility] [address] [place] [address] 01/30/2025 Red Tamayo Other exterminator (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 Z79.899 ASSESSMENTS Encounter Date Diagnosis Assessment Notes Treatment Notes Treatment Clinical Notes Section Notes 01/30/2025 Other exterminator (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 (ICD-10 - Z79.899) PLAN OF TREATMENT Medication Medication Name Sig Start Date Stop Date Notes acetaminophen-oxycodone 325 mg-7.5 mg 1 tab(s) orally 3 times a day for 28 days 01/30/2025 RX DO NOT FILL SOONER THAN 28 DAYS, (OK TO FILL EARLY, ONLY IF CLOSED) Fax PA request to [phone] or [phone] acetaminophen-oxycodone 325 mg-7.5 mg 1 tab(s) orally 3 times a day for 28 days 01/30/2025 RX DO NOT FILL SOONER THAN 28 DAYS, (OK TO FILL EARLY, ONLY IF CLOSED) Fax PA request to [phone] or [phone] Next Appt Details Provider Name:Red cooney, 03/27/2025 02:15:00 PM, [address], [address], [address],
--- OUTSIDE RECORDS SUMMARY | 2025-02-01 02:13 | XMS_ITS | Encounter Summary ---
Author Organization Healthcare Address [address] [place] [address] Care Team Providers Care Motor Hotel Manager Name Role Phone Pcp, No Primary Care Provider Unavailabl e Reason for Visit * Reason Comments Psychiatric Evaluation Encounter Details Date Type Department Care Team (Latest Contact Info) Description 02/01/2025 2:13 AM EDT - 02/01/2025 3:04 PM EDT Hospital Encounter [facility] [address] [place] [address] Lc Childs MD [address] [place] [address] Unspecified mood (affective) disorder (CMS/HCC) [...] RN 02/01/25 1458 * Carley Serrano - Dnaielle Gonzáles RN - 02/01/2025 2:48 PM EDT Images from the original note were not included. [address] Treating Mood Disorders Depression and bipolar disorder [...] swings. They move between deep sadness and peh-ja-srneswv highs. Bipolar disorder is a serious, complex, [...] free screenings. ? Depression and Bipolar Support Douglas at www.dbsalliance.org or 376-160-5848 ? International Foundation for Research and Education on Depression at www.ifred.org ? National Douglas on Mental Illness (SHAILESH) at www.shailesh.org or 545-594-ZJRK (092-346-9865) ? National Galien of Mental Health at www.nimh.nih.gov or 783-382-4424 ? National Suicide Prevention Lifeline at https://Oceans Healthcareline.org or call 265 or 276-305-VWIW (911-573-2868). This resource is open 24 hours a day, 7 days a week. They can provide crisis interventionright away. They can also give you information on local resources. It is free and confidential. Last Reviewed Date: 2024 00:00:00 ?? 8068-6098 [employer]. All rights reserved. This information is not [...] transported via Lyft. * Discharge Summary - Alona De Guzman APRN, DNP - 02/01/2025 2:32 PM EDT [facility] Psych Discharge Summary Hospitalization Admit Date/Time: 02/01/2025 2:13 AM Admitting Attending: Discharge Date: 02/01/2025 Discharge Attending Physician: Lc Childs MD PCP name and Address: Pcp, [place] [address] I received sign-out and accepted care of this patient from the departing providers Daquan Akbar 0700 hour. Please see the primary providers' note for complete elements of the history, physicalexam, and ED course. Chief Concern, Brief History of Present Illness, and Hospital Course Per review of initial [facility] note: 64 y.o. female presenting from [facility] with complaints of a manic episode. [...] medication change. Labs and chest xray at [facility] were unremarkable. Endorses smoking marijuana. On day of discharge, pt is calm, pleasant, and answers questions appropriately. She denies SI, HI, and AVH. Reports she got upset last night due to her antibiotics and experienced a brief manic episode and broke dishes. She is currently managed by Mee Blair APRN at [facility] and reports that she is going to find a therapist near [place]. No medications changes at this time. SW [...] Final diagnoses: [F39] Unspecified mood (affective) disorder (CMS/[facility]) Post Discharge Instructions Follow-Up / Post Discharge Instructions You are being discharged to Home. You should keep all scheduled follow up outpatient appointments for continued care. We strongly encourage you to keep all future appointments and advised to take all prescribed medications as instructed. You should abstain from all mood-altering substances except those prescribed by a licensed midwife. Your primary supports should monitor you for evidence of substance use and should alert your outpatient provider if use is suspected or confirmed. Your safety plan includes instructions to return to [facility] or the nearest ER if you become [...] is a 64 y.o. female presenting from [facility] with complaints of a manic episode. [...] medication change. Labs and chest x[facility] at [facility] were unremarkable. Endorses smoking marijuana. Past Medical [...] 10 mL Oral Daily PRN Desiree Simon, AUTOMOTIVE WHOLESALE PARTS ADVISOR No current outpatient medications on file. Desiree [...] went to hospital and then came to [facility], she denies SI/HI/AVH at ED and here at [facility]. Pt states she doesn't get [...] Antigen Negative Negative 02/01/2025 2:56 PM EDT [facility] Blood Venous blood specimen / Unknown 02/01/2025 10:04 AM EDT [employer] AUTOMOTIVE WHOLESALE PARTS ADVISOR LAB BLOOD ORDERABLES Final Re sult Performing Organization Address [facility]/ZIP Co de Phone Number [facility] [address] [place] [address] * Hepatitis C Antibody with Reflex to HCV Quant PCR - [facility] (02/01/2025 2:04 PM EDT) Hepatitis C Antibody Negative Negative 02/01/2025 2:04 PM EDT [facility] Blood Venous blood specimen / Unknown 02/01/2025 10:04 AM EDT [facility]OMOTIVE WHOLESALE PARTS ADVISOR LAB BLOOD ORDERABLES Final Re sult Performing Organization Address [facility] Co de Phone Number [facility] [address] [place] [address] * HIV 1 & 2 Antibody/Antigen Screen (02/01/2025 1:28 PM EDT) HIV 1 & 2 Antibody/Antigen Screen Non Reactive Non Reactive 02/01/2025 1:28 PM EDT [facility] Comment:Screening for HIV 1 & 2 antibodies, and P24 antigen is NONREACTIVE. No confirmatory testing is required. Blood Venous blood specimen / Unknown 02/01/2025 10:04 AM EDT [facility] AUTOMOTIVE WHOLESALE PARTS ADVISOR LAB BLOOD ORDERABLES Final Re sult Performing Organization Address City/[facility]/ZIP Co de Phone Number [facility] [address] [place] [address] documented in this encounter Visit Diagnoses Diagnosis [...] constipation documented in this encounter Care Teams Motor Hotel Manager Relationship Specialty Start Date End Date Pcp, No [address] [place] [address] PCP - General Family Medicine 02/01/25 documented as of this encounter
--- OUTSIDE RECORDS SUMMARY | 2025-02-04 15:06 | XMS_ITS ---
Author Organization [facility] Address [address] [place] [address] Care Team Providers Care Signaling Project Engineer Name Role Phone Red Tamayo II Unavailable Jaelyn Guerrero Unavailable Unavailable REASON FOR VISIT benzo letter - faxed 02/05 Encounters Encounter Location Date Provider Diagnosis [facility] [address] [place] [address] 02/04/2025 Red Tamayo PLAN OF TREATMENT Next Appt Details Provider Name:Red cooney, 03/27/2025 02:15:00 PM, [address], [address], [place], [address],
--- OUTSIDE RECORDS SUMMARY | 2025-02-07 10:56 | XMS_ITS ---
Author Organization [facility] Address [address] [place] [address] Care Team Providers Care Database Security Administrator Name Role Phone Red Tamayo II Unavailable Jaelyn Guerrero Unavailable Unavailable REASON FOR VISIT ITP [facility]-[place] [facility]-(after NS consult Pt must see Dr Devlin to discuss ITP)*02/27-f/up 03/27 Encounters Encounter Location Date Provider Diagnosis [facility] [address] [place] [address] 02/07/2025 Red Tamayo PLAN OF TREATMENT Next Appt Details Provider Name:Red cooney, 03/27/2025 02:15:00 PM, [address], [address], [place], [address],
[2025-02-28 11:34] VITALS: BP 161/87; PULSE 81; RESP 18; TEMP 36.4; O2SAT 99; BMI 24.1
--- OUTSIDE RECORDS SUMMARY | 2025-02-28 11:44 | XMS_ITS | Data Portability ---
Author Organization [facility] Address [address] [place] [address] Care Team Providers Care Recruitment And Outreach Assistant Name Role Phone IRASEMA MARC Referring Provider [phone] MELONIE PENN Primary Care Provider Assessment Encounter Date Assessment Date Assessment LastModified by Organization Details LastModified Time 05/12/2018 05/12/2018 Ms. Damon is a 57 yo female. She comes to us at the request of Dr. Irasema Marc for a pain management consultation. Her primary pain complaint is low back pain. This patient had previously treated with Dr. Jin for pain management for similar pain complaint. Looking back in her records with Dr. Jin, she had bilateral sacroiliac joint with bilateral piriformis tendon injections under fluoroscopy May 08, 2012. She had bilateral lumbar radiofrequency procedure performed in March and April of 2011. The pain affects the lumbosacral region bilaterally. There is a referral of pain into the buttocks and hips. The patient reports being symptomatic with this pain for many years. The patient also has history of previous vertebral fractures, but she denies any prior vertebroplasty procedures. She denies any prior lumbar spine surgery. She tried chiropractic therapy in the past which helped temporarily. The patient was involved in physical therapy from August to November of 2017, but they were working on her balance. Dr. Marc has ordered for physical therapy which she will start next week. She has used a lumbar support brace in the past. According to the patient, if she finds one that fits properly, it helps, but if it does not fit properly it does not help. She has used a TENS unit with temporary benefit. Medication roe, she has tried Mobic, Zanaflex, Flexeril, Valium, Neurontin, Voltaren, and naproxen. This patient had EMG nerve conduction study performed of the upper and lower extremities on March 21, 2018. The report notes peripheral neuropathy mild, chiefly sensory, lateral femoral cutaneous nerve neuropathy on the left, moderate, peroneal neuropathy at the left knee mild, and ulnar neuropathy at the elbow bilaterally moderate on the left and mild on the right. The patient had x-rays of the cervical spine with flexion and extension views April 21, 2018. The radiology report notes degenerative changes throughout the cervical spine with fusion at C5-6 level. The patient had MRI of the lumbar spine without contrast on April 21, 2018. The radiology report notes mild to moderate broad-based disc bulge along with mild ligamentum flavum thickening and moderate facet hypertrophy producing mild spinal canal stenosis with mild right neuroforaminal stenosis at L1-2 level, mild broad-based disc bulge along with mild ligamentum flavum thickening and moderate facet hypertrophy producing mild spinal canal stenosis with mild to moderate right neuroforaminal stenosis at L2-3 level, mild circumferential disc bulge along with mild ligamentum flavum thickening and moderate facet hypertrophy producing mild spinal canal stenosis and mild right neuroforaminal stenosis at L3-4 level, moderate circumferential disc bulge along with mild ligamentum flavum thickening and facet hypertrophy producing mild spinal canal stenosis at L4-5 level, and large broad-based disc bulge with left asymmetric predominance and far left lateral component that encroaches upon and may contact the left L5 nerve root with mild ligamentum flavum thickening and facet hypertrophy producing mild spinal canal stenosis with moderate to severe left neuroforaminal stenosis at L5-S1 level. On clinical exam today, she is tender over the lower lumbar facet joints bilaterally. This pain is exacerbated with lumbar extension and lumbar lateral bending bilaterally consistent with facet joint loading. She is also tender over the sacroiliac joints and greater trochanters bilaterally. The provocative exams for the sacroiliac joints and piriformis tendons are positive bilaterally. Based on her evaluation today and going back to her previous treatments with Dr. Jin, it appears her chronic low back pain is a combination of lumbar facet mediated pain along with pain from the sacroiliac joints with coexisting piriformis syndrome. The first plan is to offer this patient a diagnostic bilateral lumbar medial branch block procedure levels L3-L5 under fluoroscopy with local anesthetics only. The patient wants to avoid steroid. If the patient is able to achieve 80% pain relief or greater during the local anesthetic phase, the radiofrequency procedure will be repeated. Afterwards, if the lumbar pain is improved but she still had sacral and hip pain, we will offer bilateral sacroiliac joint along with bilateral piriformis tendon injections under fluoroscopy with Dr. Hollingsworth. Recommended treatment plan is discussed with the patient in detail. Her questions are answered. She is provided the patient education handout. The patient is agreeable to the recommended treatment plan. She will return to clinic with a regional truck driver for the recommended procedure. Her ORT score is 6. Not available 05/12/2018 17:13:25 09/13/2018 09/13/2018 returns today in followup for low back pain. She was referred by Dr.William Marc. This patient had previously treated with Dr. Jin for pain management for similar pain complaint. Looking back in her records with Dr. Jin, she had bilateral sacroiliac joint with bilateral piriformis tendon injections under fluoroscopy May 08, 2012. She had bilateral lumbar radiofrequency procedure performed in March and April of 2011. The pain affects the lumbosacral region bilaterally. There is a referral of pain into the buttocks and hips. The patient reports being symptomatic with this pain for many years. The patient also has history of previous vertebral fractures, but she denies any prior vertebroplasty procedures. She denies any prior lumbar spine surgery. She has used a lumbar support brace in the past. According to the patient, if she finds one that fits properly, it helps, but if it does not fit properly it does not help. She has used a TENS unit with temporary benefit but reports she cannot afford the supplies. EMG/NCS of the upper and lower extremities from 03/21/18 notes peripheral neuropathy mild, chiefly sensory, lateral femoral cutaneous nerve neuropathy on the left, moderate, peroneal neuropathy at the left knee mild, and ulnar neuropathy at the elbow bilaterally moderate on the left and mild on the right. The patient had x-rays of the cervical spine with flexion and extension views April 21, 2018 that notes degenerative changes throughout the cervical spine with fusion at C5-6 level. Lumbar MRI without contrast on 04/21/18 shows mild to moderate broad-based disc bulge along with mild ligamentum flavum thickening and moderate facet hypertrophy producing mild spinal canal stenosis with mild right neuroforaminal stenosis at L1-2 level, mild broad-based disc bulge along with mild ligamentum flavum thickening and moderate facet hypertrophy producing mild spinal canal stenosis with mild to moderate right neuroforaminal stenosis at L2-3 level, mild circumferential disc bulge along with mild ligamentum flavum thickening and moderate facet hypertrophy producing mild spinal canal stenosis and mild right neuroforaminal stenosis at L3-4 level, moderate circumferential disc bulge along with mild ligamentum flavum thickening and facet hypertrophy producing mild spinal canal stenosis at L4-5 level, and large broad-based disc bulge with left asymmetric predominance and far left lateral component that encroaches upon and may contact the left L5 nerve root with mild ligamentum flavum thickening and facet hypertrophy producing mild spinal canal stenosis with moderate to severe left neuroforaminal stenosis at L5-S1 level. The patient is status post MARY L3-5 MBB RFA on 06/28/18. She reports this provided about 2 months of relief then the benefit began to fade. She is back to her baseline pain reportedly. She now notes numbness and tingling in legs bilaterally that occurs intermittently. Assessment is negative for cauda equina; we reviewed these symptoms which she denies. consulted and recommended lumbar epidural. However, the patient does not tolerate steroids and she does not know exactly which one steroid is the culprit. The patient requests pain medication. [facility] records show a previous script for Tramadol, however given her diagnosis of bipolar, I would prefer to avoid Tramadol. consulted and agrees to low dose [place] with no plans for escalation. The patient reports previous Gabapentin script but she had a 'bad reaction'. She originally stated she prefers to avoid Lyrica and 'just deal with the symptoms', then changed her mind and wanted to try this. I will send in prescription for Lyrica. The patient reports she has completed physical therapy and been released. She tried chiropractic therapy in the past which helped temporarily. She is scheduled to see a mental health provider on 09/28/18. Future considerations include bilateral SI/PT injections. Medication fill for [place] 5/325mg TID #90 and Lyrica 50mg TID #90. Her ORT score is 6. Not available 09/19/2018 09:14:22 10/12/2018 10/12/2018 returns today in followup for low back pain. She was referred by Dr.William Marc. This patient had previously treated with Dr. Jin for pain management for similar pain complaint. Looking back in her records with Dr. Jin, she had bilateral sacroiliac joint with bilateral piriformis tendon injections under fluoroscopy May 08, 2012. She had bilateral lumbar radiofrequency procedure performed in March and April of 2011. The pain affects the lumbosacral region bilaterally. There is a referral of pain into the buttocks and hips. The patient reports being symptomatic with this pain for many years. The patient also has history of previous vertebral fractures, but she denies any prior vertebroplasty procedures. She denies any prior lumbar spine surgery. She has used a lumbar support brace in the past. According to the patient, if she finds one that fits properly, it helps, but if it does not fit properly it does not help. She has used a TENS unit with temporary benefit but reports she cannot afford the supplies. EMG/NCS of the upper and lower extremities from 03/21/18 notes peripheral neuropathy mild, chiefly sensory, lateral femoral cutaneous nerve neuropathy on the left, moderate, peroneal neuropathy at the left knee mild, and ulnar neuropathy at the elbow bilaterally moderate on the left and mild on the right. The patient had x-rays of the cervical spine with flexion and extension views April 21, 2018 that notes degenerative changes throughout the cervical spine with fusion at C5-6 level. Lumbar MRI without contrast on 04/21/18 shows mild to moderate broad-based disc bulge along with mild ligamentum flavum thickening and moderate facet hypertrophy producing mild spinal canal stenosis with mild right neuroforaminal stenosis at L1-2 level, mild broad-based disc bulge along with mild ligamentum flavum thickening and moderate facet hypertrophy producing mild spinal canal stenosis with mild to moderate right neuroforaminal stenosis at L2-3 level, mild circumferential disc bulge along with mild ligamentum flavum thickening and moderate facet hypertrophy producing mild spinal canal stenosis and mild right neuroforaminal stenosis at L3-4 level, moderate circumferential disc bulge along with mild ligamentum flavum thickening and facet hypertrophy producing mild spinal canal stenosis at L4-5 level, and large broad-based disc bulge with left asymmetric predominance and far left lateral component that encroaches upon and may contact the left L5 nerve root with mild ligamentum flavum thickening and facet hypertrophy producing mild spinal canal stenosis with moderate to severe left neuroforaminal stenosis at L5-S1 level. The patient is status post MARY L3-5 MBB RFA on 06/28/18. She reports this provided about 2 months of relief then the benefit began to fade. She is back to her baseline pain reportedly. She now notes numbness and tingling in legs bilaterally that occurs intermittently. Assessment is negative for cauda equina; we reviewed these symptoms which she denies. consulted and recommended lumbar epidural. However, the patient does not tolerate steroids and she does not know exactly which one steroid is the culprit. At the last visit the patient requested pain medication. We initiated [place] at low dose and continued the Lyrica. The patient reports the Lyrica caused confusion and lower extremity edema. She also reports the [place] exacerbated her anxiety. She states she was discharge from a week long stay on Wednesday10/10/18 at the [facility]. She reports resuming Effexor. She states Diazepam is beneficial but is not currently prescribed this. The patient states she is now considering the lumbar epidural to address her pain, even though a steroid will be administered and she prefers to avoid steroids. She reports falling x2 recently. She did not lose consciousness nor seek medical attention. consulted today and agrees we should discontinue the Lyrica and [place] due to negative side effects. He recommended Integrative Therapy through Dr.John Yip ([place]), the [facility], or [facility]. The patient reports she is currently in between mental health providers who would facilitate this. I provided a list of names for her to research and consider. The patient reports she has completed physical therapy and been released. She tried chiropractic therapy in the past which helped temporarily. She is currently 'between' mental health providers. No Medication were filled today. Her ORT score is 6. Not available 10/16/2018 01:04:49 Plan of Treatment Reminders Order Date Submit Date Provider Last Modified By Organization Details Last Modified Time Details Appointments None recorded. Lab drug screen, urine 2018 019 [email or web address] [place], [address] [place], [place] [address] , [address], [place], [address], 9 09:14:29 drug screen, urine 2017 018 [email or web address] [place], [facility] [address], [place], [address], 8 17:15:04 Referral None recorded. Procedures medial branch block, lumbar (PROC) 2017 018 [email or web address] Not available 8 11:50:21 Surgeries radiofrequ ency ablation (SURG) 2017 018 [email or web address] Not available 8 08:47:33 Imaging None recorded. Medication Orders [place] 5 mg-325 mg tablet 2018 [address] [facility], [address] [place], [address], 9 16:18:52 Lyrica 50 mg capsule 2018 [address] [facility], [address] [place], [address], 9 16:21:39 Patient TargetsNo targets recorded. Patient InstructionsNo instructions recorded. Reason for Referral None Reported. Results Created Date Observation Date Name Description Value Unit Range Abnormal Flag Note LastModifiedBy Organization Detail LastModifiedTime 05/12/20 18 05/12/2018 drug scree n, urine THC: negati ve Not Available [facility] [address], [place], [address], 05/12/2018 13:27:28 05/12/20 18 05/12/2018 drug scree n, urine Buprenorphin e: negati ve Not Available [facility] [address], [place], [address], 05/12/2018 13:27:28 05/12/20 18 05/12/2018 drug scree n, urine TCA: negati ve Not Available [facility] [address], [place], [address], 05/12/2018 13:27:28 05/12/20 18 05/12/2018 drug scree n, urine Barbiturates : negati ve Not Available [facility] [address], [place], [address], 05/12/2018 13:27:28 05/12/20 18 05/12/2018 drug scree n, urine Benzodiazepi cuauhtemoc: positi ve Not Available [facility] [address], [place], [address], 05/12/2018 13:27:28 05/12/20 18 05/12/2018 drug scree n, urine Methadone: negati ve Not Available [place] [address], [place], [address], 05/12/2018 13:27:28 05/12/20 18 05/12/2018 drug scree n, urine Amphetamines : negati ve Not Available [address], [place], [address], 05/12/2018 13:27:28 05/12/20 18 05/12/2018 drug scree n, urine Morphine/Opi ates: negati ve Not Available [address], [place], [address], 05/12/2018 13:27:28 05/12/20 18 05/12/2018 drug scree n, urine Oxycodone: negati ve Not Available [address], [place], [address], 05/12/2018 13:27:28 05/12/20 18 05/12/2018 drug scree n, urine MDMA: negati ve Not Available [facility] [address], [place], [address], 05/12/2018 13:27:28 05/12/20 18 05/12/2018 drug scree n, urine Cocaine: negati ve Not Available [address], [place], [address], 05/12/2018 13:27:28 05/12/20 18 05/12/2018 drug scree n, urine Methamphetam ine: negati ve Not Available [facility] [address], [place], [address], 05/12/2018 13:27:28 09/13/19 19 09/13/2018 drug scree n, urine THC: negati ve Not Available [facility] [address], [place], [address], 09/13/2018 14:15:40 09/13/1909/13/2018 drug scree n, urine Buprenorphin e: negati ve Not Available [address], [place], [address], 09/13/2018 14:15:40 09/13/1909/13/2018 drug scree n, urine TCA: negati ve Not Available [address], [place], [address], 09/13/2018 14:15:40 09/13/1909/13/2018 drug scree n, urine Barbiturates : negati ve Not Available [address], [place], [address], 09/13/2018 14:15:40 09/13/1909/13/2018 drug scree n, urine Benzodiazepi cuauhtemoc: positi ve Not Available [facility] [address], [place], [address], 09/13/2018 14:15:40 09/13/1909/13/2018 drug scree n, urine Methadone: negati ve Not Available [address], [place], [address], 09/13/2018 14:15:40 09/13/1909/13/2018 drug scree n, urine Amphetamines : negati ve Not Available [facility] [address], [place], [address], 09/13/2018 14:15:40 09/13/1909/13/2018 drug scree n, urine Morphine/Opi ates: negati ve Not Available [place] [address], [place], [address], 09/13/2018 14:15:40 09/13/1909/13/2018 drug scree n, urine Oxycodone: negati ve Not Available [facility] [address], [place], [address], 09/13/2018 14:15:40 09/13/1909/13/2018 drug scree n, urine MDMA: negati ve Not Available [address], [place], [address], 09/13/2018 14:15:40 09/13/1909/13/2018 drug scree n, urine Cocaine: negati ve Not Available [address], [place], [address], 09/13/2018 14:15:40 09/13/1909/13/2018 drug scree n, urine Methamphetam ine: negati ve Not Available [address], [place], [address], 09/13/2018 14:15:40 Result Notes None recorded. Problems Name Problem SNOMED Code Status Onset Date Resolution Date Notes Provider Name and Address Organization Details Recorded Time Low back pain 129257090 Active 2017 DAKOTA Tao [facility] 8 13:15:11 Raynaud's disease 674852132 Active 2017 DAKOTA Tao [facility] 8 13:30:11 Chronic pain syndrome 939944927 Active 2017 CYNDEE Fry [address] [place], [address] , [facility] 8 17:13:25 Lumbar spondylosi s 943963584 Active 2017 CYNDEE [address] [place], [address] , [facility] 8 17:13:26 Inflammati on of sacroiliac joint 61465328 Active 2017 CYNDEE [address] [place], [address] , [facility] 8 17:13:27 Long-term drug therapy Active 2017 CYNDEE [address] [place], [address] , [facility] 8 17:13:29 Tendinitis of bilateral gluteal tendons 3853067090763 9102 Active 2017 CYNDEE [address] [place], [address] , [facility] 8 17:13:33 Bipolar disorder 24173264 Active 2018 Crystal Getachew null, [facility] 9 14:53:42 Generalize d anxiety disorder 21070814 Active 2018 Crystal Getachew null, [facility] 9 14:53:52 Problem Notes None recorded. Procedures Surgical History Date Name Laterality Status Provider Name and Address Organization Details Recorded Time 8 Lumbar RFA (3 Level Bilateral) completed [employer] [facility] 06/28/2018 15:02:45 8 Diagnostic Lumbar MBB (3 Level Bilateral) completed Damaris Tineo [facility] 05/31/2018 15:28:35 Remove tonsils and adenoids completed Albina Alex [facility] 05/12/2018 13:15:56 Cervical Spine Surgery completed Albina Alex [facility] 05/12/2018 13:16:27 Removal of ovary(s) completed Albina Alex [facility] 05/12/2018 13:17:00 ACDF completed Dottie Villeda [facility] 09/13/2018 13:18:22 Foot/Ankle Surgery completed Dottie Villeda [facility] 10/12/2018 15:10:52 Orthopedic Surgery completed Dottie Villeda [facility] 10/12/2018 15:10:52 Shoulder Surgery completed Dottiejenelle Villeda [facility] 10/12/2018 15:10:52 Imaging Results None recorded. Procedure Notes None recorded. Medical Equipment None Reported. Allergies Allergen ID Allergen Name Allergen Category Reaction Reaction Severity Criticality Documentation Date Start Date Code Code System Note Provider Name and Address Organization Details Recorded Time 28594 codeine medicatio n anaphylax is headache itching rash moderate severe severe moderate Not available 05/12/2018 2670 RxNorm Albina Alex [facility] 8 13:11:23 10998 morphine sulfate medicatio n anaphylax is confusion flushing hallucina tions itching severe moderate severe severe severe Not available 05/12/2018 10250 RxNorm DAKOTA Tao [facility] 8 13:11:23 15420 bacitraci n / neomycin / polymyxin B medicatio n itching severe Not available 09/13/2018 77967 9 [facility] 9 13:15:22 34972 gabapenti n medicatio n Not available Not available Not available 09/13/2018 54048 RxNorm unkno wn 'bad' react ion Crystal Getachew [facility] 9 15:03:47 37968 bacitraci n / neomycin / polymyxin B medicatio n itching rash severe moderate Not available 10/12/2018 96002 9 RxNorm DAKOTA Colby [facility] 9 15:10:07 Medications Name Sig Start Date Stop Date Status Note LastModified by Organization Details LastModified Time Prescription - Prior Authorizatio n Request 09/13 completed Not Available Not Available Not Available Remeron 15 mg tablet 1 tablet every day by oral route. 2017 active Not Available Not Available Not Avai lable tramadol 50 mg tablet 09/13 completed Not Available Not Available Not Available [place] 5 mg-325 mg tablet Take 1 tablet 3 times a day by oral route for 30 days. 2018 active Not Available Not Available Not Avai lable Lyrica 50 mg capsule Take 1 capsule 3 times a day by oral route for 30 days. 2018 active Not Available Not Available Not Avai lable acyclovir active Not Available Not Summer ilable Not Available levothyroxin e active Not Available Not Available Not Available diazepam active Not Available Not Avai lable Not Available cyclobenzapr ine 10/12 completed Not Available Not Available Not Available Lamictal active Not Available Not Avai lable Not Available lidocaine active Not Available Not Summer ilable Not Available melatonin 5 mg tablet 2017 active Not Available Not Available Not Avai lable Multi Vitamin active Not Available Not Available Not Available Vraylar 06/27 completed Not Available Not Available Not Available Vitals Date Recorded Body height Body mass index (BMI) Body weight Heart rate Oxygen saturation Oxygen saturation in Arterial blood by Pulse oximetry Systolic blood pressure Diastolic blood pressure Provider Name and Address Organization Details Last Updated DateTime 9 166.37 cm 25.4 kg/m2 10192.8 2 g 80 /min 97 % 97 % 109 mm[Hg] 75 mm[Hg] Dottie [facility] 9 13:19:59 Date Recorded Body height Oxygen saturation Oxygen saturation in Arterial blood by Pulse oximetry Heart rate Body mass index (BMI) Body weight Systolic blood pressure Diastolic blood pressure Provider Name and Address Organization Details Last Updated DateTime 9 166.37 cm 97 % 97 % 100 /min 24.6 kg/m2 69973.8 6 g 111 mm[Hg] 75 mm[Hg] Dottie [facility] 9 15:21:11 Date Recorded Body height Body mass index (BMI) Body weight Heart rate Oxygen saturation Oxygen saturation in Arterial blood by Pulse oximetry Systolic blood pressure Diastolic blood pressure Provider Name and Address Organization Details Last Updated DateTime 8 166.37 cm 23.3 kg/m2 09729.1 2 g 88 /min 88 % 88 % 151 mm[Hg] 102 mm[Hg] Albina DUNCAN [facility] 8 13:29:00 Social History Question Answer Notes LastModified by Organizat ion Details LastModified Time Tobacco Smoking Status Never Smoker Albina ross [facility] 05/12/2018 13:15:23 Are You Blind Or Do You Have Difficulty Seeing? No [email or web address] Information not available 09/13/2018 What Is Your Level Of Caffeine Consumption? Moderate [email or web address] Information not available 09/13/2018 How Much Tobacco Do You Chew? None [email or web address] Information not available 09/13/2018 Are You Deaf Or Do You Have Serious Difficulty Hearing? No [email or web address] Information not available 09/13/2018 What Type Of Diet Are You Following? GLUTENFREE [email or web address] Information not available 09/13/2018 Which Illicit Or Recreational Drugs Have You Used? None [email or web address] Information not available 05/12/2018 Prescription Drug Abuse No [email or web address] Information not available 05/12/2018 Disability Yes [email or web address] Information n ot available 05/12/2018 History Of Sexual Abuse No [email or web address] Information not available 05/12/2018 Marital Status [email or web address] Informati on not available 05/12/2018 What Was The Date Of Your Most Recent Tobacco Screening? 10/12/2018 Information not available 03/22/2019 How Much Tobacco Do You Smoke? No [email or web address] Information not available 10/12/2018 Has Tobacco Cessation Counseling Been Provided? No [email or web address] Information not available 05/12/2018 Sex: Unknown Functional Status Question Answer Note LastModified by Organizat ion Details LastModified Time What is your level of alcohol consumption? Occasional [email or web address] Information not available 05/12/2018 Mental Status None recorded. Family History Relationship Description Onset Age of this Age Resolved Age Notes LastModified by Organization Details LastModified Time Paternal Grandfather Alcoholism 34 64 [email or web address] Not availabl e 10/12/2018 15:29:04 Paternal Grandfather Alcoholism 25 60 [email or web address] Not availabl e 09/13/2018 13:16:17 Father Alcoholism 18 47 [email or web address] Not summer ilable 09/13/2018 13:16:17 Father Mental disorder 30 47 [email or web address] Not available 15:29:04 Paternal Aunt Alcoholism 30 64 [email or web address] Not available 10/12/2018 15:29:04 Paternal Aunt Diabetes mellitus 30 [email or web address] Not available 15:29:04 Paternal Uncle Alcoholism 50 [email or web address] Not available 15:29:04 Paternal Grandmother Diabetes mellitus 40 69 [email or web address] Not available 15:29:04 Paternal Grandmother Disease of liver 46 65 [email or web address] Not available 15:29:04 Medical History Condition Response Bipolar Disease Y Coronary Artery Disease N Gout N Seizure Disorder Y Atrial Fibrillation N Thyroid Disease Y Head Trauma/Injury Y Hernia N Depression N COPD N Anxiety Disorder Y Acid Reflux (GERD) N Cancer N Skin Disorder N Stroke Y High Cholesterol N Liver Disease N Rheumatoid Arthritis N Fibromyalgia Y Headaches N Autoimmune Disease N Kidney Disease N Osteoarthritis N Neurosurgery N DVT N Peptic Ulcer Disease N Anemia N Heart Attack ([place]) N Diabetes N Cardiomyopathy N Bleeding Disorder N CHF N AIDS/HIV N Inflammatory Bowel Disease N Dementia N Asthma N Substance Abuse N Sleep Apnea N Hepatitis N Heart Disease N Pulmonary Embolism N Chronic Low Back Pain Y Hypertension N Osteoporosis N Gynecological HistoryNo gynecological history recorded. Obstetrics History GPAL:G 0 P 0 0 0 0 Past Encounters Encounter ID Performer Location Encounter Start Date Encounter Closed Date Diagnosis/Indication Diagnosis SNOMED-CT Code Diagnosis ICD10 Code Diagnosis Note [id number] Lawrence Hollingsworth MD [address],[facility] [address] [place] [address] 05/12/2018 12:48:46 05/12/2018 14:32:04 Long-term drug therapy 599412563 Z79.899 do not send Chronic pain syndrome 37 0681861 G89.4 Lumbar spondylosis 19330 0009 M47.816 The recommende d procedure is discussed with the patient in detail. Questions related to the procedure are answered. The patient is provided the patient education handout. Inflammati on of sacroiliac joint 87846453 M46.1 Tendinitis of bilateral gluteal tendons 2617411480 7421083 M76.01 [id number] MD Ray Dyeington [address] [place] [address] 05/31/2018 15:03:42 05/31/2018 15:32:13 Lumbosacral spondylosis without myelopathy 41755203 M47.817 [id number] MD Gerald Dye [address] [place] [address] 06/28/2018 13:48:21 06/28/2018 15:04:26 Lumbosacral spondylosis without myelopathy 17079869 M47.817 [id number] MD Gerald Dye [address] [place] [address] 09/13/2018 12:57:12 09/13/2018 15:12:52 Lumbar spondylosis 215344772 M47.896 We discussed the potential risks of long-term opiate use. I advised the patient to be judicious with the narcotic medication , taking it only when pain is severe and taking breaks days whenever possible. Updated Nghia reviewed and found appropriat e. Morphine Equivalent Dose is 0. ORT is 6. Degenerati on of lumbar intervertebral disc 63984752 M51.36 Low back pain 537266362 M54.5 Tendinitis of bilateral gluteal tendons 5401666302 2523780 M76.01 M76.02 Inflammati on of sacroiliac joint 26553235 M46.1 Chronic pain syndrome 37 8734622 G89.4 Long-term drug therapy 723504037 Z79.899 [id number] MD Ray Dyeington [address] [place] [address] 10/12/2018 14:26:20 10/12/2018 16:04:26 Lumbar spondylosis 915238037 M47.896 Tendinitis of bilateral gluteal tendons 5772631228 2388088 M76.01 M76.02 Long-term drug therapy 901079807 Z79.899 Degenerati on of lumbar intervertebral disc 36087836 M51.36 Low back pain 334203145 M54.5 Inflammati on of sacroiliac joint 60307100 M46.1 Chronic pain syndrome 37 7547874 G89.4 Health Concerns Section Related Observation LastModified by Organization Detai ls LastModified Time None Recorded Concern Status LastModified by Organization Details LastModified Time None Recorded Advance Directives Directive None Recorded Payers Insurance Date Sequence Insurance Name Policy Number Policy Chacon Covered Member ID Chacon Member ID Guarantor Name 10/09/2018 1 [place] [employer] [place] FFS/TRADITIO NAL Diamond Damon [id number] Diamond Damon Notes Date Note Type Note Provider Name and Address Organization Details Recorded Time 05/12/2018 text/html Low back painReported bypatient.Onset:3 years Location:bilateral paraspinal; midline spine; radiating down the bilateral lower extremities to the buttocks; right hip Context:fall; Patient has had 3 spine fractures in 2014, 2015 and 2016. Quality:aching; stabbing; throbbing; dull; constant Severity:severe; current pain level: 10/10; worst pain level: 10/10 Alleviating Factors:inversion table and TENS unit Aggravating Factors:standing; walking; lifting; twisting; bending/squatting; ROM; weightbearing; upstairs; downstairs Timing:constant Associated Symptoms:no weakness; no numbness; no pain radiating down leg; no swelling; no popping/clicking; no bowel incontinence; no urinary retention; no urinary incontinence; no perineal paresthesia/anesth esia;tingling Prior Imaging:x-ray; MRI; EMG; in chart Previous Lumbar Surgery:none Previous Injections:lumbar RFA; % improvement: (100% pain relief) Previous PT:completed PT; response to therapy: temporary pain improvement; Patient has a current order for PT given by which she starts next week. Medications History:NSAIDs: (Mobic (caused sedation)); muscle relaxants: (Zanaflex, Flexeril (not effective) Valium (effective)); neuropathics: (Neurontin (unable to tolerate)); opioid pain medications: (Unble to take) Work Related:no Working:no Prior Pain Management:no CYNDEE Fry [address] [place] [address], [id number], [facility] 05/12/2018 17:16:00 09/13/2018 text/html Follow-up (meds & injections)Reporte d bypatient.Improvem ent:Pain is getting worse. Pain Scores:Average pain- 8/10; Current pain- 8/10; Worst pain- 10/10 Recent Injections:LMBB/Fa cet injections-; Pain relief from injections- 50% lasting for ; 06/28/2018 RFA Bilateral L3-L5, 50% relief for 2 months Patient here for f/u on LBP and injection. She stated that she received about 50 % relief for two months with the injection. Patient has mary tingling and numbness in mary legs whichh is new. DAKOTA Batista - [facility] 09/19/2018 09:14:37 10/12/2018 text/html Follow-up (meds & injections)Reporte d bypatient.Improvem ent:Pain is getting worse. Current Analgesics:Opioids - hydrocodone; Other adjunct medications- Lyrica; Last dose of either pain medication was two weeks ago. Pharmacy verified Pain Scores:Average pain- 8/10; Current pain- 8/10; Worst pain- 10/10 Recent Injections:Pain relief from injections- % lasting for ; None Patient here for f/u on LBP and neck pain. Has not been taking Lyrica or [place] for two weeks because we told her to stop taking it due to causing her increased anxiety. She also states that she has had a couple falls since last visit. DAKOTA Batista - [facility] 10/16/2018 01:05:02 OBGyn Episode No OBEpisode recorded.
--- OUTSIDE RECORDS SUMMARY | 2025-02-28 11:45 | XMS_ITS | Patient Health Record ---
Author Organization [facility] Address [address] [place] [address] [address] [place] [address] Care Team Providers Care Network Systems Integrator Name Role Phone Jaelyn Guerrero Unavailable Unavailable Allergies Allergen (clinical drug ingredient) Drug/Non Drug Allergy documented on EMR Reaction Allergy Type Onset Date Status carisoprodol Soma hives Drug Allergy Acti ve bacitracin / neomycin / polymyxin B Neosporin rash Drug Allergy Active codeine codeine anaphylaxis Drug Allergy Activ e ibuprofen hives Drug Allergy Active methadone methadone stomach upset Drug Allergy Act sheldon diphenhydramine diphenhydramine hives Drug Allergy Active morphine morphine anaphylaxis Drug Allergy Activ e prednisone prednisone anaphylaxis Drug Allergy Act sheldon Reason For Referral No Information Medications Medication SIG (Take, Route, Frequency, Duration) Notes Start Date End Date Status tiZANidine 4 mg 1 tab(s) orally ever y 8 hours; Duration: 30 day(s) 09/30/2021 Activ e Meclizine 25 mg 1 tab Oral tid prn; Duration: 15 days 10/29/2022 Active diazePAM 5 mg 1 tab(s) orally 3 ti mes a day 09/30/2021 Active fenofibrate 145 mg 1 tab(s) orally once a day; Duration: 30 day(s) 10/29/2022 Active benzonatate 100 mg 1 cap(s) orally 3 ti mes a day; Duration: 5 day(s) 10/20/2022 Active acetaminophen-oxycodone 325 mg-7.5 mg 1 tab(s) orally 3 times a day; Duration: 28 day(s) Active acetaminophen-oxycodone 325 mg-7.5 mg 1 tab(s) orally 3 times a day; Duration: 28 day(s) Active meclizine 25 mg 1 tab(s) orally 3 ti mes a day 10/20/2022 Active SUMAtriptan 6 mg/0.5 mL as directed subc utaneously once 10/29/2022 Active venlafaxine 150 mg 1 cap(s) orally once a day; Duration: 30 day(s) 10/29/2022 Active acyclovir 400 mg 1 tab(s) orally 2 ti mes a day 10/29/2022 Active buPROPion 150 mg/12 hours 1 tab(s) orall y 2 times a day; Duration: 30 day(s) 10/29/2022 Active Social History Alcohol Screen Question Answer Notes Did you have a drink contain ing alcohol in the past year? Yes How often did you have a dri nk containing alcohol in the past year? Monthly or less (1 point) Points 1 Interpretation Negative Problems Problem Type SNOMED Code ICD Code Onset Dates Problem Status W/U Status Risk Notes Problem Chronic pain syndrome (251724295) Chronic pain syndrome (G89.4) Active confirmed Problem Complex regional pain syndrome type I of right lower limb (disorder) (25530825138428 9) Complex regional pain syndrome I of right lower limb (G90.521) Active confirmed Problem Complex regional pain syndrome of lower limb (disorder) (991008646) Complex regional pain syndrome I of unspecified lower limb (G90.529) Active confirmed Problem Post-laminectom y syndrome (87399513) Postlaminectomy syndrome, not elsewhere classified (M96.1) Active confirmed Problem Long-term current use of drug therapy (038301175) Other residential (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 (Z79.899) Active confirmed Problem Lumbar spondylosis (251834602) lumbar spondylosis (M47.816) Active confirmed Problem Cervical spondylosis (981747539) cervical spondylosis (M47.812) Active confirmed Plan Of Treatment Pending Test Test Name Order Date Urine Test LCMS Definitive 08/16/2023 Insurance Providers Payer Name Payer Address Payer Phone Subscriber Number Group Number Insured Name Patient Relationship to Insured Coverage Start Date Coverage End Date [place] Medicaid [address] [place] [phone] [id number] Diamond Damon Self - patient is the insured 9 Medical (General) History Medical History History ICD Code anxiety-/Jaelyn Renteria MACHINE I TRIMMER asthma-1979/Jaelyn Renteria MACHINE I TRIMMER bipolar disorder-1993/Jaelyn Renteria MACHINE I TRIMMER COPD-1979/Jaelyn Renteria MACHINE I TRIMMER fibromyalgia-1989/Jaelyn Godkelley MACHINE I TRIMMER depression-/Jaelyn Renteria MACHINE I TRIMMER [id number] an issue/Jaelyn Martinez odkelley MACHINE I TRIMMER Stroke-1993/Jaelyn Renteria MACHINE I TRIMMER Hypothyroidism-1979/Jaelyn Renteria MACHINE I TRIMMER [id number]/Jaelyn Renteria MACHINE I TRIMMER Degenerative disc disease-1999/Jaelyn Go dby MACHINE I TRIMMER Surgical History Surgery Date(Month/Year) Left ankle surgery x2/ [facility] / with a 3 day stay 1999 Appendectomy/ [facility] / overnigh t stay 2003 Cholecystectomy/ [facility] / overn ight stay 2002 LT Hand Surgery x2/ [facility] / wi th a 3 day stay 1976 Neck (cervical discetomy)Dr. Marc/ [facility] / over night stay 2005 RT Shoulder / [facility] / (OP) 198 2 Tonsillectomy/ [facility] / (OP) 19 66 Tubal abdominal ligation / in [place] / (O P) 1981 Bladder lift / [facility] / Dr. Daniel Crawford / (OP) 2005 Ovarien Cyst Rupture/ [facility] in [facility] / with a 3-4 day stay 1987 oophorectomy (left)/ [facility] / ( OP) 2005 [place] teeth/ Dr. Hess / (OP) 1976 Hernia repair / [facility] / (OP) 03/14/2021 Hospitalization History Reason Date(Month/Year) Bowel obstruction / [facility] / treated and rel eased 02/2021
--- OUTSIDE RECORDS SUMMARY | 2025-02-28 11:45 | XMS_ITS | Encounter Summary ---
Author Organization Healthcare Address [address] [place] [address] Care Team Providers Care Pinball Machine Repairer Name Role Phone Pcp, No Primary Care Provider Unavailabl e Encounter Details Date Type Department Care Team (Latest Contact Info) Description 02/01/2025 Travel Social History Tobacco Use Types Packs/Day Years Used Date Smoking Tobacco: Never Smokeless Tobacco: Never Alcohol Use Standard Drinks/Week Comments Not Currently 0 (1 standard drink = 0.6 oz pur e alcohol) Comments Unknown Sex and Gender Information Value Date Recorded Sex Assigned at Not on file Legal Sex Female 7:49 PM EDT Gender Identity Not on file Sexual Orientation Not on file documented as of this encounter Functional Status * Calculated C-SSRS Risk Score (Lifetime/Recent) Answer Date of Assessment Author Low Risk 02/01/2025 2:20 AM EDT Tessa Callaway RN * Question Answer Date of Assessment Author 1. Wish to be (Past 1 Month) Yes 025 2:20 AM EDT Craig Callaway, JOB 2. Non-Specific Active Suici jose manuel Thoughts (Past 1 Month) No 02/01/2025 2:20 AM EDT Craig Callaway, JOB 6. Suicidal Behavior (Lifetime) No 2:20 AM EDT Craig Callaway, JOB documented as of this encounter Plan of Treatment Not on file documented as of this encounter Visit Diagnoses Not on filedocumented in this encounter Care Teams Pinball Machine Repairer Relationship Specialty Start Date End Date Pcp, No [address] [place] [address] PCP - General Family Medicine 02/01/25 documented as of this encounter
--- OUTSIDE RECORDS SUMMARY | 2025-02-28 11:45 | XMS_ITS | Clinical Summary ---
Author Organization [facility] Address [address] [place] [address] Care Team Providers Care Material Inspector Name Role Phone Pcp, No Primary Care Provider Unavailabl e Allergies Active Allergy Reactions Criticality Noted Date Comments Zolpidem Other - please document in the comment field Low 02/01/2025 Gives her to much energy Clomipramine Other - please document in the comment field Low 02/01/2025 RLS Antihistamines, Chlorpheniramine-Type Other - please document in the comment field Low 02/01/2025 Manic Aripiprazole Other - please document in the comment field Low 02/01/2025 Aggressive Lorazepam Other - please document in the comment field Low 02/01/2025 RLS Bacitracin Rash Low 02/01/2025 Buspirone Other - please document in the comment field Low 02/01/2025 Aggressive Celecoxib Headache Low 02/01/2025 Codeine Anaphylaxis High 02/01/2025 Duloxetine Hcl Other - please document in the comment field Low 02/01/2025 Aggressive Meperidine Other - please document in the comment field Low 02/01/2025 RLS Valproic Acid Swelling,Headache High 02/01/2025 Dexmedetomidine Other - please document in the comment field Low 02/01/2025 RLS Cyclobenzaprine Other - please document in the comment field Low 02/01/2025 RLS Ziprasidone Other - please document in the comment field Low 02/01/2025 Gives her to much energy Hydrocodone Itching Medium 02/01/2025 Ibuprofen Other - please document in the comment field Low 02/01/2025 RLS Clonazepam Other - please document in the comment field Low 02/01/2025 Gives her to much enegry Lurasidone Other - please document in the comment field Low 02/01/2025 Gives her to much enegry Chlordiazepoxide Other - please document in the comment field Low 02/01/2025 Shakes Eszopiclone Other - please document in the comment field Low 02/01/2025 Not effective Meloxicam Nausea Low 02/01/2025 Morphine Anaphylaxis High 02/01/2025 Neomycin Rash Low 02/01/2025 Desipramine Other - please document in the comment field Low 02/01/2025 RLS Other Other - please document in the comment field Low 02/01/2025 STEROIDS make her aggressive Paroxetine Other - please document in the comment field Low 02/01/2025 RLS Polymyxin B Rash Low 02/01/2025 Desvenlafaxine Other - please document in the comment field Low 02/01/2025 Aggressive Propranolol Other - please document in the comment field Low 02/01/2025 RLS Fluoxetine Other - please document in the comment field Low 02/01/2025 Manic Mirtazapine Other - please document in the comment field Low 02/01/2025 RLS Temazepam Other - please document in the comment field Low 02/01/2025 Gives her to much energy Brexpiprazole Other - please document in the comment field Low 02/01/2025 Aggressive Risperidone Other - please document in the comment field Low 02/01/2025 Aggressive Quetiapine Other - please document in the comment field Low 02/01/2025 Manic Chlorpromazine Other - please document in the comment field Low 02/01/2025 Manic Topiramate Other - please document in the comment field Low 02/01/2025 RLS Perphenazine Other - please document in the comment field Low 02/01/2025 RLS Vortioxetine Other - please document in the comment field Low 02/01/2025 Gives her to much energy Tramadol Other - please document in the comment field Low 02/01/2025 Gives her to much energy Cariprazine Other - please document in the comment field Low 02/01/2025 Gives her to much energy Medications buPROPion XL (Wellbutrin XL) 300 MG 24 hr tablet Take 1 tablet by mouth daily. 01/19/2025 Active diazePAM (Valium) 5 MG tablet Take 1 tablet by mouth 2 times a day. 01/26/2025 Active fenofibrate (Tricor) 145 MG tablet Take 1 tablet by mouth daily. 10/13/2024 Active hydroCHLOROthia zide 12.5 MG PO tablet Take 1 tablet by mouth daily. 01/19/2025 Active losartan (Cozaar) 25 MG tablet Take 1 tablet by mouth daily. 01/01/2025 Active oxyCODONE-aceta minophen (Percocet) 7.5-325 MG tablet Take 1 tablet by mouth 3 times a day. 01/30/2025 Active tiZANidine (Zanaflex) 4 MG tablet Take 1 tablet by mouth every 8 hours as needed for muscle spasms. Active venlafaxine XR (Effexor-XR) 150 MG 24 hr capsule Take 1 capsule by mouth daily. 01/19/2025 Active levothyroxine (Synthroid, Levoxyl) 50 MCG tablet Take 1 tablet by mouth daily. 01/01/2025 Active Active Problems Problem Noted Date Diagnosed Date Unspecified mood (affective) disorder 02/01/2025 Encounters Date Type Department Care Team Description 02/01/2025 2:13 AM EDT - 02/01/2025 3:04 PM EDT Hospital Encounter Formerly [facility] [address] [place] [address] Lc Childs MD Unspecified mood (affective) disorder (CMS/HCC) (Primary Dx) Discharge Disposition: Home or Self Care 02/01/2025 Travel from Last 3 Months Social History Tobacco Use Types Packs/Day Years [...] on file Sexual Orientation Not on file Last Filed Vital Signs Vital Sign Reading [...] Mass Index 21.63 02/01/2025 2:11 AM EDT Plan of Treatment Health Maintenance Due Date Last Done Comments [facility]-Bone Density Scan 1960 [facility]-Depression Screening 1960 [facility]-Hepatitis C Screening 1960 [facility]-Medicare Annual Wellness (AWV) 1960 [facility]-/Child/Adol SDOH Screenings 1960 [id number] Vaccine (#1) 12/03/1964 [facility]- SDOH Screenings 12/03/1977 [facility]-Adult SDOH Screenings 12/03/1977 [facility]-Pap Smear 04/17/2000 04/17/1997, 03/31, 01/20/1996, Additional history exists [facility]-Cervical Cancer Screening 04/17/2002 [facility]-HPV/Cotest 04/17/2002 04/17/1997, 03/31, 01/20/1996, Additional history exists CT Colonography 12/03/2004 FIT-DNA 12/03/2004 FIT 12/03/2004 FOBT 12/03/2004 Sigmoidoscopy 12/03/2004 [facility]-Zoster Vaccines (1 of 2) 12/03/2009 [facility]-Pneumococcal Vaccine: 50+ Years (2 of 2 - PCV) 06/12/2016 06/12/2015, 01/02/2015 [facility]-RSV Vaccine: 60+ Years or (1 - Risk 60-74 years 1-dose series) 2019 [facility]-Breast Cancer Screening 12/27/2020 12/27/2018, 0 12/27/2018 Colonoscopy 12/19/2022 12/19/2012 [facility]-Colorectal Cancer Screening 12/19/2022 [facility]-Influenza Vaccine (Season Ended) 2025 07/22/2016, 06/12/2015, 06/13/2014, Additional history exists [facility]-DTaP,Tdap,and Td Vaccines (2 - Td or Tdap) 03/06/2027 03/06/2017 HPV Vaccines Aged Out No longer eligi ble based on patient's age to complete this topic [facility]-HIB Vaccines Aged Out No longer e ligible based on patient's age to complete this topic [facility]-Hepatitis A Vaccines Aged Out No longer eligible based on patient's age to complete this topic [facility]-IPV Vaccines Aged Out No longer e ligible based on patient's age to complete this topic [facility]-Rotavirus Vaccines Aged Out No lo nger eligible based on patient's age to complete this topic Procedures Procedure Name Priority Date/Time Associated Diagnosis Comments HEPATITIS B SURFACE ANTIGEN - EMPATH STAT 02/01/2025 2:56 PM EDT HEPATITIS C ANTIBODY WITH REFLEX TO HCV QUANT PCR - EMPATH STAT 02/01/2025 2:04 PM EDT HIV 1/2 ANTIBODY/ANTIGEN SCREEN WITH REFLEX TO HIV I/II DIFFERENTIATION STAT 02/01/2025 1:28 PM EDT HIV 1/2 ANTIBODY/ANTIGEN SCREEN W/REFLEX TO HIV 1/2 ANTIBODY DIFFERENTIATION STAT 02/01/2025 1:28 PM EDT COLONOSCOPY 12/19/2012 CYTO DATA CONVERSION Routine 04/17/1997 12:00 AM EDT from Last 3 Months or Most Recently Relevant to Health Maintenance Results * Hepatitis B Surface Antigen - Empath (02/01/2025 2:56 PM EDT) Hepatitis B Surf Antigen Negative Negative 02/01/2025 2:[address] [facility] Blood Venous blood specimen / Unknown 02/01/2025 10:04 AM EDT us Desiree Simon APRN LAB BLOOD ORDERABLES Final Re sult [facility] [address] [place] [address] * Hepatitis C Antibody with Reflex to HCV Quant PCR - Empath (02/01/2025 2:04 PM EDT) Hepatitis C Antibody Negative Negative 02/01/2025 2:[address] [facility] Blood Venous blood specimen / Unknown 02/01/2025 10:04 AM EDT Desiree Simon CINDER CRANE OPERATOR LAB BLOOD ORDERABLES Final Re sult Performing Organization Address [facility]/ZIP Co de Phone Number [facility] [address] [place] [address] * HIV 1 & 2 Antibody/Antigen Screen (02/01/2025 1:28 PM EDT) HIV 1 & 2 Antibody/Antigen Screen Non Reactive Non Reactive 02/01/2025 1:[address] [facility] Comment:Screening for HIV 1 & 2 antibodies, and P24 antigen is NONREACTIVE. No confirmatory testing is required. Blood Venous blood specimen / Unknown 02/01/2025 10:04 AM EDT [facility]OD ORDERABLES Final Re sult Performing Organization Address [facility] Co de Phone Number [facility] [address] [place] [address] * COLONOSCOPY (12/19/2012) Anatomical Region Laterality Modality Endoscopy Narrative 12/19/2012 Ordered by an unspecified provider. Historical Provider GI PROCEDURE ORDERABLES F inal Result * Cytology (04/17/1997 12:00 AM EDT) 04/17/1997 04/18/1997 Narrative SUNQUEST - 04/23/1997 12:00 AM EDT [facility] MR #: [id number] [facility] [address] [place], [place] [address] 1960 (Age: 36) FW Collect Date: 04/17/1997 00:00 Receipt Date: 04/18/1997 00:00 Page 1 DEPARTMENT OF PATHOLOGY AND LABORATORY MEDICINE CYTOPATHOLOGY REPORT Email: [email or web address] * Converted Case * This report may not match the original report format ATTENDING MD/Practitioner: Mary Galan MD Service: PARA PROFESSIONAL Location: Reported: 04/23/1997 00:00 Collected: 04/17/1997 00:00 INTERPRETATION THIN PREP(CERVICAL/ENDOCERVICAL) WITHIN NORMAL LIMITS. SATISFACTORY BUT LIMITED BY SPARSE TO NO ENDOCERVICAL CELLS. Cervical/vaginal cytology is a screening test with a recognized false negative rate. New technologies may decrease but will not eliminate false negative results. Regular (generally annual) cytology screening is recommended to minimize false negative results. Electronically Signed Out By Johnny Daugherty KATHYA Dye (ASCP) No Signature Required KATHYA Wilkinson (ASCP) Cervical cytology is a screening test primarily for squamous cancers and precursors and has associated false negative and positive results. New technologies such as liquid based sampling may decrease but will not eliminate all false negative results. Regular screening and follow-up of unexplained clinical signs and symptoms are recommended to minimize false negative results. Please see the ASCCP website (www.asccp.org) for followup recommendations. If HPV testing was requested, correlation with the results is suggested (please call Microbiology at [phone] for results). CLINICAL INFORMATION: Menstrual History: {Not Provided} Date of Last Menstrual Period: {Not Provided} SPECIMEN DESCRIPTION: A: THIN PREP(CERVICAL/ENDOCERVICAL)., THIN PREP PAP ICD: F: {Not Entered} SNOMED CODES: 1; K7F201.3 [id number] [id number] In cases where a pathologist has signed out the report, the service has been rendered in part by a resident. The signing pathologist has performed and is responsible for the reported pathologic evaluation. Yumiko Galan MD LAB PATHOLOGY ORDERABLES Mi cornejo Result SUNQUEST from Last 3 Months or Most Recently Relevant to Health Maintenance Insurance [place] Care Teams Material Inspector Relationship Specialty Start Date End Date Pcp, Alicia [address] [place] [address] PCP - General Family Medicine 02/01/25
--- OUTSIDE RECORDS SUMMARY | 2025-02-28 11:45 | XMS_ITS | Patient Health Record ---
Author Organization [facility] Address [address] [place] [address] Care Team Providers Care Registered Nurse Post Partum Name Role Phone Red Tamayo II Unavailable Jaelyn Guerrero Unavailable Unavailable Freeman Albarran Unavailable [phone] ALLERGIES Allergen (clinical drug ingredient) Drug/Non Drug Allergy [...] prednisone prednisone anaphylaxis Drug Allergy Act sheldon RESULTS Component Value Reference Range Notes Urine Test ANALYZER Reviewed date:06/05/2024 07:51:25 AM Interpretation:+OXY+OPI Performing Lab: Notes/Report: +OXY+OPI Heroin Metabolite (6AM) NEG Amphetamine (AMP) NEG Benzodiazepine (EMANUEL) NEG Buprenorphine NEG Cocaine (KYLE) NEG Hydrocodone (HYD) NEG Methadone (MTD) NEG Opiate (OPI) POS Oxycodone (OXY) POS Urine Test LCMS Definitive Reviewed date:11/15/2024 07:10:36 AM Interpretation:+oxy 2/3 Performing Lab: Notes/Report: +oxy 2/3 Report Attached Urine Test ANALYZER Reviewed date:01/30/2025 01:35:09 PM Interpretation:+EMANUEL Performing Lab: Notes/Report: +EMANUEL Heroin Metabolite (6AM) NEG Amphetamine (AMP) NEG Benzodiazepine (EMANUEL) POS Buprenorphine NEG Cocaine (KYLE) NEG Hydrocodone (HYD) NEG Methadone (MTD) NEG Opiate (OPI) NEG Oxycodone (OXY) NEG Urine Test ANALYZER Reviewed date:11/20/2024 03:15:16 PM Interpretation:+OXY Performing Lab: Notes/Report: +OXY Heroin Metabolite (6AM) NEG Amphetamine (AMP) NEG Benzodiazepine (EMANUEL) NEG Buprenorphine NEG Cocaine (KYLE) NEG Hydrocodone (HYD) NEG Methadone (MTD) NEG Opiate (OPI) NEG Oxycodone (OXY) POS Urine Test ANALYZER Reviewed date:09/27/2024 08:57:58 AM Interpretation:+OXY+OPI Performing Lab: Notes/Report: +OXY+OPI Heroin Metabolite (6AM) NEG Amphetamine (AMP) NEG Benzodiazepine (EMANUEL) NEG Buprenorphine NEG Cocaine (KYLE) NEG Hydrocodone (HYD) NEG Methadone (MTD) NEG Opiate (OPI) POS Oxycodone (OXY) POS Urine Test ANALYZER Reviewed date:07/25/2024 08:39:06 AM Interpretation:+OXY Performing Lab: Notes/Report: +OXY Heroin Metabolite (6AM) NEG Amphetamine (AMP) NEG Benzodiazepine (EMANUEL) NEG Buprenorphine NEG Cocaine (KYLE) NEG Hydrocodone (HYD) NEG Methadone (MTD) NEG Opiate (OPI) NEG Oxycodone (OXY) POS Urine Test ANALYZER Reviewed date:03/28/2024 07:33:58 AM Interpretation:+OXY Performing Lab: Notes/Report: +OXY Heroin Metabolite (6AM) NEG Amphetamine (AMP) NEG Benzodiazepine (EMANUEL) NEG Buprenorphine NEG Cocaine (KYLE) NEG Hydrocodone (HYD) NEG Methadone (MTD) NEG Opiate (OPI) NEG Oxycodone (OXY) POS REASON FOR REFERRAL Reason Faxed 08/02-Evaluate/ treat if candidate for surgical intervention for lumbar pain. Diagnosis 1 Spondylosis without myelopathy or radiculopathy, lumbar region (M47.816) Referral Organization [facility] Referring Provider First Name Red Referring Provider Last Name Belkis Referring Provider Speciality Pain Manag ement Referred Organization [facility] Referred Address [address] [place] [address], [place],[address], Referred Provider Specialty Neurological Surgery General Notes Juan C (PA-Evv),Elaine ty 08/02/2024 3:14:46 PM > Please contact the patient to schedule and fax confirmation of the scheduled appt to [phone]. If you need any additional information, please contact our office at [phone]. Thank You , Juan C (Susannah),Kenyatta 08/02/2024 3:30:35 PM > Faxed to preeti, Margy Soria (PADmarc) 09/18/2024 12:44:01 PM > Called [facility] and was advised this pt was scheduled for this on 10/10/24 but cx'd the appt due to transportation issues. Pt also no showed her last follow up with us and has not rescheduled. Closing referral but per [facility], she can reschedule whenever ready. Referral Priority Routine MEDICATIONS Medication SIG (Take, Route, Frequency, Duration) Notes Start Date End Date Status venlafaxine 150 mg 1 cap(s) orally once a day for 30 day(s) 10/29/2022 Active SUMAtriptan 6 mg/0.5 mL as directed subcutaneously once 10/29/2022 Active buPROPion 150 mg/12 hours 1 tab(s) orally 2 times a day for 30 day(s) 10/29/2022 Active acyclovir 400 mg 1 tab(s) orally 2 times a day 10/29/2022 Active diazePAM 5 mg 1 tab(s) orally 3 times a day 09/30/2021 Active TiZANidine Hydrochloride 4 mg 1 tab(s) orally every 8 hours for 30 days DO NOT FILL SOONER THAN 28 DAYS, (OK TO FILL EARLY, ONLY IF CLOSED) Fax PA request to [phone] or [phone] Active benzonatate 100 mg 1 cap(s) orally 3 times a day for 5 day(s) 10/20/2022 Active fenofibrate 145 mg 1 tab(s) orally once a day for 30 day(s) 10/29/2022 Active Meclizine 25 mg 1 tab Oral tid prn f or 15 days 10/29/2022 Active acetaminophen-oxycodo ne 325 mg-7.5 mg 1 tab(s) orally 3 times a day for 28 days January 2025 RX DO NOT FILL SOONER THAN 28 DAYS, (OK TO FILL EARLY, ONLY IF CLOSED) Fax PA request to [phone] or [phone] 01/30/2025 Active acetaminophen-oxycodo ne 325 mg-7.5 mg 1 tab(s) orally 3 times a day for 28 days February 2025 RX DO NOT FILL SOONER THAN 28 DAYS, (OK TO FILL EARLY, ONLY IF CLOSED) Fax PA request to [phone] or [phone] 01/30/2025 Active SOCIAL HISTORY Sex Assigned At : Social History Observation Description Sex Assigned At Unknown Alcohol Screen Question Answer Notes Did you have a drink contain ing alcohol in the past year? Yes How often did you have a dri nk containing alcohol in the past year? Monthly or less (1 point) Points 1 Interpretation Negative PROBLEMS Problem Type ICD Code Onset Dates Problem Status W/U Status Risk SNOMED Code Notes Problem Chronic pain syndrome (G89.4) Active confirmed Chronic rosales n syndrome (550795477) Problem Complex regional pain syndrome I of right lower limb (G90.521) Active confirmed Complex regional pain syndrome type I of right lower limb (disorder) (1825453300299 09) Problem Complex regional pain syndrome I of unspecified lower limb (G90.529) Active confirmed Complex regional pain syndrome of lower limb (disorder) (777061895) Problem Postlaminectomy syndrome, not elsewhere classified (M96.1) Active confirmed Post-lami necto my syndrome (84714945) Problem Other joint terminal attack controller (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 (Z79.899) Active confirmed Long-term current use of drug therapy (778749515) Problem lumbar spondylosis (M47.816) Active confirmed Lumbar spondylosis (956697456) Problem cervical spondylosis (M47.812) Active confirmed Cervical spondylosis (705435808) VITAL SIGNS Heart Rate 91 /min 01/30/2025 Blood pressure diastolic 77 mm Hg 01/30/2025 Height 65 in 01/30/2025 Blood pressure systolic 121 mm Hg 01/30/2025 Weight 130 lbs 01/30/2025 BMI 21.63 kg/m2 01/30/2025 Encounters Encounter Location Date Provider Diagnosis [facility] [address] [place] [address] 03/27/2024 Red Tamayo Other joint terminal attack controller (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 Z79.899 ; lumbar spondylosis M47.816 ; cervical spondylosis M47.812 ; Postlaminectomy syndrome, not elsewhere classified M96.1 and Complex regional pain syndrome I of right lower limb G90.521 [facility] [address] [place] [address] 03/28/2024 Red Tamayo Other joint terminal attack controller (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 Z79.899 [facility] [address] [place] [address] 05/18/2024 Red Tamayo Other longterm (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 Z79.899 ; lumbar spondylosis M47.816 ; cervical spondylosis M47.812 ; Postlaminectomy syndrome, not elsewhere classified M96.1 and Complex regional pain syndrome I of right lower limb G90.521 [facility] [address] [place] [address] 05/29/2024 Red Tamayo Other longterm (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 Z79.899 [facility] [address] [place] [address] 05/29/2024 Red Tamayo Other longterm (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 Z79.899 ; lumbar spondylosis M47.816 ; cervical spondylosis M47.812 ; Postlaminectomy syndrome, not elsewhere classified M96.1 and Complex regional pain syndrome I of right lower limb G90.521 [facility] [address] [place] [address] 05/30/2024 Red Tamayo [facility] [address] [place] [address] 07/24/2024 Red Tamayo Other longterm (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 Z79.899 ; lumbar spondylosis M47.816 ; cervical spondylosis M47.812 ; Postlaminectomy syndrome, not elsewhere classified M96.1 and Complex regional pain syndrome I of right lower limb G90.521 [facility] [address] [place] [address] 07/24/2024 Red Tamayo Other longterm (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 Z79.899 [facility] [address] [place] [address] 07/26/2024 Red Tamayo [facility] [address] [place] [address] 08/02/2024 Red Tamayo [facility] [address] [place] [address] 09/14/2024 Red Tamayo Other joint terminal attack controller (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 Z79.899 ; lumbar spondylosis M47.816 ; cervical spondylosis M47.812 ; Postlaminectomy syndrome, not elsewhere classified M96.1 and Complex regional pain syndrome I of right lower limb G90.521 [facility] [address] [place] [address] 09/22/2024 Red Tamayo Other joint terminal attack controller (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 Z79.899 ; lumbar spondylosis M47.816 ; cervical spondylosis M47.812 ; Postlaminectomy syndrome, not elsewhere classified M96.1 and Complex regional pain syndrome I of right lower limb G90.521 [facility] [address] [place] [address] 09/26/2024 Freeman Albarran Other longterm (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 Z79.899 ; lumbar spondylosis M47.816 ; cervical spondylosis M47.812 ; Postlaminectomy syndrome, not elsewhere classified M96.1 and Complex regional pain syndrome I of right lower limb G90.521 [facility] [address] [place] [address] 09/26/2024 Red Tamayo Other longterm (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 Z79.899 ; lumbar spondylosis M47.816 ; cervical spondylosis M47.812 ; Postlaminectomy syndrome, not elsewhere classified M96.1 and Complex regional pain syndrome I of right lower limb G90.521 [facility] [address] [place] [address] 09/26/2024 Red Tamayo Other joint terminal attack controller (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 Z79.899 [facility] [address] [place] [address] 11/20/2024 Red Tamayo Other joint terminal attack controller (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 Z79.899 [facility] [address] [place] [address] 11/20/2024 Red Tamayo Other longterm (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 Z79.899 ; lumbar spondylosis M47.816 ; cervical spondylosis M47.812 ; Postlaminectomy syndrome, not elsewhere classified M96.1 and Complex regional pain syndrome I of right lower limb G90.521 [facility] [address] [place] [address] 12/01/2024 Red Tamayo [facility] [address] [place] [address] 01/15/2025 Red Tamayo Other longterm (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 Z79.899 ; lumbar spondylosis M47.816 ; cervical spondylosis M47.812 ; Postlaminectomy syndrome, not elsewhere classified M96.1 and Complex regional pain syndrome I of right lower limb G90.521 [facility] [address] [place] [address] 01/30/2025 Red Tamayo Other joint terminal attack controller (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 Z79.899 ; lumbar spondylosis M47.816 ; cervical spondylosis M47.812 ; Postlaminectomy syndrome, not elsewhere classified M96.1 and Complex regional pain syndrome I of right lower limb G90.521 [facility] [address] [place] [address] 01/30/2025 Red Tamayo Other joint terminal attack controller (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 Z79.899 [facility] [address] [place] [address] 02/04/2025 Red Tamayo [facility] [address] [place] [address] 02/07/2025 Red Tamayo ASSESSMENTS Encounter Date Diagnosis Assessment Notes Treatment Notes Treatment Clinical Notes Section Notes 03/27/2024 Other joint terminal attack controller (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 (ICD-10 - Z79.899) 03/27/2024 1. Refill Oxycodone/APAP 7.5/325mg TID - ERX 2. Inquire about SCS Perm Placement - waiting on NS appt 3. Follow up in 2 months 03/27/2024 Ms. Damon returns today for office visit and medication refill. We have been trying to get SCS trial approved and we are waiting on a neurosurgical evaluation to state that she is not a candidate for any type of corrective procedures. Her evaluation has been put off yet again and consequently we are on hold in regard to a stim trial at the moment. We will continue her current medication which is oxycodone/APAP 7.5/325 mg 3 times daily. She denies any adverse side effects from the medication or any significant changes in her overall condition since her last office visit. Johnathan and UDS were reviewed and are compliant. Opioid risk assessment is low. Refill medication and f/u 2 months 03/27/2024 lumbar spondylosis (ICD-10 - M47.816) 03/27/2024 Ms. Damon returns today for office visit and medication refill. We have been trying to get SCS trial approved and we are waiting on a neurosurgical evaluation to state that she is not a candidate for any type of corrective procedures. Her evaluation has been put off yet again and consequently we are on hold in regard to a stim trial at the moment. We will continue her current medication which is oxycodone/APAP 7.5/325 mg 3 times daily. She denies any adverse side effects from the medication or any significant changes in her overall condition since her last office visit. Johnathan and UDS were reviewed and are compliant. Opioid risk assessment is low. Refill medication and f/u 2 months 05/29/2024 Other joint terminal attack controller (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 (ICD-10 - Z79.899) May 29, 2024 1. Refill Percocet 7.5/325mg TID 2. pt is interested in the ITP implant, however due to the intolerance to the dilaudid with the prior successful ITP trial with dilaudid with plan on repeat ITP trial with morphine. 3. Follow up in 2 months 11/29/23 Ms. Damon returns today for office visit and medication [...] risk assessment is low. f/u 2 months [id number] - Patient with chronic LBP with radicular [...] validate a good response prior to implant. 05/29/2024 lumbar spondylosis (ICD-10 - M47.816) 11/29/23 Ms. Damon returns today for office visit and medication [...] risk assessment is low. f/u 2 months 42TLQ39 - Patient with chronic LBP with radicular [...] validate a good response prior to implant. 05/29/2024 Other joint terminal attack controller (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 (ICD-10 - Z79.899) 07/24/2024 Other longterm (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 (ICD-10 - Z79.899) July 24, 2024 1. Refill Percocet 7.5/325mg TID 2. Refer patient to NS. 3. Follow up in 2 months 11/29/23 Ms. Damon returns today for office visit and medication [...] risk assessment is low. f/u 2 months [id number] - Patient with chronic LBP with radicular [...] validate a good response prior to implant. [id number] - Patient presents today to discuss further [...] assessment for her back and radicular pain. 07/24/2024 lumbar spondylosis (ICD-10 - M47.816) 11/29/23 Ms. Damon returns today for office visit and medication [...] risk assessment is low. f/u 2 months [id number] - Patient with chronic LBP with radicular [...] validate a good response prior to implant. [id number] - Patient presents today to discuss further [...] for her back and radicular pain. 09/22/2024 Other joint terminal attack controller (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 (ICD-10 - Z79.899) July 24, 2024 1. Refill Percocet 7.5/325mg TID 2. Refer patient to NS. 3. Follow up in 2 months 11/29/23 Ms. Damon returns today for office visit and medication [...] risk assessment is low. f/u 2 months [id number] - Patient with chronic LBP with radicular [...] validate a good response prior to implant. [id number] - Patient presents today to discuss further [...] lumbar spondylosis (ICD-10 - M47.816) 11/29/23 Ms. Damon returns today for office visit and medication [...] risk assessment is low. f/u 2 months [id number] - Patient with chronic LBP with radicular [...] validate a good response prior to implant. 14CWS41 - Patient presents today to discuss further [...] for her back and radicular pain. 09/26/2024 Other longterm (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 (ICD-10 - Z79.899) 11/20/2024 Other longterm (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 (ICD-10 - Z79.899) 11/20/2024 1.refill percocet 7.5/325mg TID 2. Refer patient to NS.- waiting to reschedule appt. 3. Follow up in 2 months 4. refill tizanidine 4mg TID 11/20/2024 Ms. Damon returns today for office visit and medication [...] reviewed. Meds refilled and f/u 2 months. 11/20/2024 lumbar spondylosis (ICD-10 - M47.816) 11/20/2024 Ms. Damon returns today for office visit and medication [...] Meds refilled and f/u 2 months. 01/30/2025 Other longterm (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 (ICD-10 - Z79.899) 01/15/2025 Other joint terminal attack controller (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 (ICD-10 - Z79.899) 11/20/2024 1.refill percocet 7.5/325mg TID 2. Refer patient to NS.- waiting to reschedule appt. 3. Follow up in 2 months 4. refill tizanidine 4mg TID 11/20/2024 Ms. Damon returns today for office visit and medication [...] reviewed. Meds refilled and f/u 2 months. 11/20/2024 Other joint terminal attack controller (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 (ICD-10 - Z79.899) 09/26/2024 Other joint terminal attack controller (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 (ICD-10 - Z79.899) 09/26/2024 1.refill percocet 7.5/325mg TID 2. Refer patient to NS.- appt with NS next month 3. Follow up in 2 months 09/26/2024 Ms. Damon returns today for office visit and medication [...] assessment for her back and radicular pain. Patient does have an appt with NS to discuss options for her pack pain. After her appt she would decide if she wants to proceed with ITP trial or medications only. Continue percocet 7.5mg TID. Denies any side effects. Johnathan and UDS reviewed. Meds refilled and f/u 2 months. 09/26/2024 lumbar spondylosis (ICD-10 - M47.816) 09/26/2024 Ms. Damon returns today for office visit and medication [...] assessment for her back and radicular pain. Patient does have an appt with NS to discuss options for her pack pain. After her appt she would decide if she wants to proceed with ITP trial or medications only. Continue percocet 7.5mg TID. Denies any side effects. Johnathan and AMISH reviewed. Meds refilled and f/u 2 months. 09/26/2024 Other longterm (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 (ICD-10 - Z79.899) July 24, 2024 1. Refill Percocet 7.5/325mg TID 2. Refer patient to NS. 3. Follow up in 2 months 11/29/23 Ms. Damon returns today for office visit and medication [...] risk assessment is low. f/u 2 months [id number] - Patient with chronic LBP with radicular [...] validate a good response prior to implant. [id number] - Patient presents today to discuss further [...] assessment for her back and radicular pain. 09/14/2024 Other longterm (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 (ICD-10 - Z79.899) July 24, 2024 1. Refill Percocet 7.5/325mg TID 2. Refer patient to NS. 3. Follow up in 2 months 11/29/23 Ms. Damon returns today for office visit and medication [...] risk assessment is low. f/u 2 months 45LVQ46 - Patient with chronic LBP with radicular [...] validate a good response prior to implant. 11TJQ51 - Patient presents today to discuss further [...] assessment for her back and radicular pain. 07/24/2024 Other longterm (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 (ICD-10 - Z79.899) 05/18/2024 Other longterm (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 (ICD-10 - Z79.899) 03/27/2024 1. Refill Oxycodone/APAP 7.5/325mg TID - ERX 2. Inquire about SCS Perm Placement - waiting on NS appt 3. Follow up in 2 months 03/27/2024 Ms. Damon returns today for office visit and medication refill. We have been trying to get SCS trial approved and we are waiting on a neurosurgical evaluation to state that she is not a candidate for any type of corrective procedures. Her evaluation has been put off yet again and consequently we are on hold in regard to a stim trial at the moment. We will continue her current medication which is oxycodone/APAP 7.5/325 mg 3 times daily. She denies any adverse side effects from the medication or any significant changes in her overall condition since her last office visit. Johnathan and UDS were reviewed and are compliant. Opioid risk assessment is low. Refill medication and f/u 2 months 03/28/2024 Other longterm (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 (ICD-10 - Z79.899) 01/30/2025 Other joint terminal attack controller (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 (ICD-10 - Z79.899) 01/30/2025 1. Refill percocet 7.5/325mg TID 2. Refer patient to NS.- waiting to reschedule appt. 3. Follow up in 2 months 4. Refill tizanidine 4mg TID 5. benzo letter to Mee Agrawal A.P.R.N. (sent 01/30) 01/30/2025 Screen Unexpected(-)S ent for Definitive, 11/20/2024 Ms. Damon returns today for office visit and medication [...] lumbar spondylosis (ICD-10 - M47.816) 11/20/2024 Ms. Damon returns today for office visit and medication [...] in two months, or sooner if needed. 05/18/2024 lumbar spondylosis (ICD-10 - M47.816) 03/27/2024 Ms. Damon returns today for office visit and medication refill. We have been trying to get SCS trial approved and we are waiting on a neurosurgical evaluation to state that she is not a candidate for any type of corrective procedures. Her evaluation has been put off yet again and consequently we are on hold in regard to a stim trial at the moment. We will continue her current medication which is oxycodone/APAP 7.5/325 mg 3 times daily. She denies any adverse side effects from the medication or any significant changes in her overall condition since her last office visit. Johnathan and UDS were reviewed and are compliant. Opioid risk assessment is low. Refill medication and f/u 2 months 09/14/2024 lumbar spondylosis (ICD-10 - M47.816) 11/29/23 Ms. Damon returns today for office visit and medication [...] risk assessment is low. f/u 2 months [id number] - Patient with chronic LBP with radicular [...] validate a good response prior to implant. [id number] - Patient presents today to discuss further [...] lumbar spondylosis (ICD-10 - M47.816) 11/29/23 Ms. Damon returns today for office visit and medication [...] risk assessment is low. f/u 2 months [id number] - Patient with chronic LBP with radicular [...] validate a good response prior to implant. 51ZYF08 - Patient presents today to discuss further [...] pain. 09/26/2024 cervical spondylosis (ICD-10 - M47.812) 09/26/2024 Ms. Damon returns today for office visit and medication [...] assessment for her back and radicular pain. Patient does have an appt with NS to discuss options for her pack pain. After her appt she would decide if she wants to proceed with ITP trial or medications only. Continue percocet 7.5mg TID. Denies any side effects. Johnathan and MECHELLES reviewed. Meds refilled and f/u 2 months. 01/15/2025 lumbar spondylosis (ICD-10 - M47.816) 11/20/2024 Ms. Damon returns today for office visit and medication [...] reviewed. Meds refilled and f/u 2 months. 11/20/2024 cervical spondylosis (ICD-10 - M47.812) 11/20/2024 Ms. Damon returns today for office visit and medication [...] reviewed. Meds refilled and f/u 2 months. 09/22/2024 cervical spondylosis (ICD-10 - M47.812) 11/29/23 Ms. Damon returns today for office visit and medication [...] risk assessment is low. f/u 2 months [id number] - Patient with chronic LBP with radicular [...] validate a good response prior to implant. [id number] - Patient presents today to discuss further [...] assessment for her back and radicular pain. 07/24/2024 cervical spondylosis (ICD-10 - M47.812) 11/29/23 Ms. Damon returns today for office visit and medication [...] risk assessment is low. f/u 2 months [id number] - Patient with chronic LBP with radicular [...] doing her HEP. Most recent UDS and JOHNATHNA reviewed and she reports no side effects from her medications. She would rather have the ITP rather than seeing neurosurgery. Will continue with her current medication regimen and HEP. Spoke with Dr. Tamayo with plans of ITP trial again with morphine to validate a good response prior to implant. [id number] - Patient presents today to discuss further [...] assessment for her back and radicular pain. 05/29/2024 cervical spondylosis (ICD-10 - M47.812) 11/29/23 Ms. Damon returns today for office visit and medication [...] risk assessment is low. f/u 2 months [id number] - Patient with chronic LBP with radicular [...] validate a good response prior to implant. 03/27/2024 cervical spondylosis (ICD-10 - M47.812) 03/27/2024 Ms. Damon returns today for office visit and medication refill. We have been trying to get SCS trial approved and we are waiting on a neurosurgical evaluation to state that she is not a candidate for any type of corrective procedures. Her evaluation has been put off yet again and consequently we are on hold in regard to a stim trial at the moment. We will continue her current medication which is oxycodone/APAP 7.5/325 mg 3 times daily. She denies any adverse side effects from the medication or any significant changes in her overall condition since her last office visit. Johnathan and UDS were reviewed and are compliant. Opioid risk assessment is low. Refill medication and f/u 2 months 03/27/2024 Postlaminectomy syndrome, not elsewhere classified (ICD-10 - M96.1) 03/27/2024 Ms. Damon returns today for office visit and medication refill. We have been trying to get SCS trial approved and we are waiting on a neurosurgical evaluation to state that she is not a candidate for any type of corrective procedures. Her evaluation has been put off yet again and consequently we are on hold in regard to a stim trial at the moment. We will continue her current medication which is oxycodone/APAP 7.5/325 mg 3 times daily. She denies any adverse side effects from the medication or any significant changes in her overall condition since her last office visit. Johnathan and UDS were reviewed and are compliant. Opioid risk assessment is low. Refill medication and f/u 2 months 05/29/2024 Postlaminectomy syndrome, not elsewhere classified (ICD-10 - M96.1) 11/29/23 Ms. Damon returns today for office visit and medication [...] risk assessment is low. f/u 2 months [id number] - Patient with chronic LBP with radicular [...] validate a good response prior to implant. 07/24/2024 Postlaminectomy syndrome, not elsewhere classified (ICD-10 - M96.1) 11/29/23 Ms. Damon returns today for office visit and medication [...] risk assessment is low. f/u 2 months [id number] - Patient with chronic LBP with radicular [...] validate a good response prior to implant. [id number] - Patient presents today to discuss further [...] elsewhere classified (ICD-10 - M96.1) 11/29/23 Ms. Damon returns today for office visit and medication [...] risk assessment is low. f/u 2 months [id number] - Patient with chronic LBP with radicular [...] validate a good response prior to implant. [id number] - Patient presents today to discuss further [...] assessment for her back and radicular pain. 11/20/2024 Postlaminectomy syndrome, not elsewhere classified (ICD-10 - M96.1) 11/20/2024 Ms. Damon returns today for office visit and medication [...] TID. Denies any side effects. Johnathan and UDChinedu reviewed. Meds refilled and f/u 2 months. 01/15/2025 cervical spondylosis (ICD-10 - M47.812) 11/20/2024 Ms. Damon returns today for office visit and medication [...] reviewed. Meds refilled and f/u 2 months. 09/26/2024 Postlaminectomy syndrome, not elsewhere classified (ICD-10 - M96.1) 09/26/2024 Ms. Damon returns today for office visit and medication [...] assessment for her back and radicular pain. Patient does have an appt with NS to discuss options for her pack pain. After her appt she would decide if she wants to proceed with ITP trial or medications only. Continue percocet 7.5mg TID. Denies any side effects. Johnathan and AMISH reviewed. Meds refilled and f/u 2 months. 09/26/2024 cervical spondylosis (ICD-10 - M47.812) 11/29/23 Ms. Damon returns today for office visit and medication [...] risk assessment is low. f/u 2 months [id number] - Patient with chronic LBP with radicular [...] validate a good response prior to implant. [id number] - Patient presents today to discuss further [...] assessment for her back and radicular pain. 09/14/2024 cervical spondylosis (ICD-10 - M47.812) 11/29/23 Ms. Damon returns today for office visit and medication [...] risk assessment is low. f/u 2 months [id number] - Patient with chronic LBP with radicular [...] validate a good response prior to implant. [id number] - Patient presents today to discuss further [...] assessment for her back and radicular pain. 05/18/2024 cervical spondylosis (ICD-10 - M47.812) 03/27/2024 Ms. Damon returns today for office visit and medication refill. We have been trying to get SCS trial approved and we are waiting on a neurosurgical evaluation to state that she is not a candidate for any type of corrective procedures. Her evaluation has been put off yet again and consequently we are on hold in regard to a stim trial at the moment. We will continue her current medication which is oxycodone/APAP 7.5/325 mg 3 times daily. She denies any adverse side effects from the medication or any significant changes in her overall condition since her last office visit. Johnathan and UDS were reviewed and are compliant. Opioid risk assessment is low. Refill medication and f/u 2 months 01/30/2025 cervical spondylosis (ICD-10 - M47.812) 11/20/2024 Ms. Damon returns today for office visit and medication [...] elsewhere classified (ICD-10 - M96.1) 11/20/2024 Ms. Damon returns today for office visit and medication [...] TID. Denies any side effects. Johnathan and UDChinedu reviewed. Meds refilled and f/u 2 months. [...] in two months, or sooner if needed. 05/18/2024 Postlaminectomy syndrome, not elsewhere classified (ICD-10 - M96.1) 03/27/2024 Ms. Damon returns today for office visit and medication refill. We have been trying to get SCS trial approved and we are waiting on a neurosurgical evaluation to state that she is not a candidate for any type of corrective procedures. Her evaluation has been put off yet again and consequently we are on hold in regard to a stim trial at the moment. We will continue her current medication which is oxycodone/APAP 7.5/325 mg 3 times daily. She denies any adverse side effects from the medication or any significant changes in her overall condition since her last office visit. Johnathan and UDS were reviewed and are compliant. Opioid risk assessment is low. Refill medication and f/u 2 months 09/26/2024 Postlaminectomy syndrome, not elsewhere classified (ICD-10 - M96.1) 11/29/23 Ms. Damon returns today for office visit and medication [...] risk assessment is low. f/u 2 months [id number] - Patient with chronic LBP with radicular [...] validate a good response prior to implant. [id number] - Patient presents today to discuss further [...] assessment for her back and radicular pain. 09/14/2024 Postlaminectomy syndrome, not elsewhere classified (ICD-10 - M96.1) 11/29/23 Ms. Damon returns today for office visit and medication [...] risk assessment is low. f/u 2 months [id number] - Patient with chronic LBP with radicular [...] validate a good response prior to implant. [id number] - Patient presents today to discuss further [...] assessment for her back and radicular pain. 01/15/2025 Postlaminectomy syndrome, not elsewhere classified (ICD-10 - M96.1) 11/20/2024 Ms. Damon returns today for office visit and medication [...] reviewed. Meds refilled and f/u 2 months. 09/26/2024 Complex regional pain syndrome I of right lower limb (ICD-10 - G90.521) 09/26/2024 Ms. Damon returns today for office visit and medication [...] assessment for her back and radicular pain. Patient does have an appt with NS to discuss options for her pack pain. After her appt she would decide if she wants to proceed with ITP trial or medications only. Continue percocet 7.5mg TID. Denies any side effects. Johnathan and MECHELLES reviewed. Meds refilled and f/u 2 months. 09/22/2024 Complex regional pain syndrome I of right lower limb (ICD-10 - G90.521) 11/29/23 Ms. Damon returns today for office visit and medication [...] risk assessment is low. f/u 2 months [id number] - Patient with chronic LBP with radicular [...] validate a good response prior to implant. [id number] - Patient presents today to discuss further [...] assessment for her back and radicular pain. 11/20/2024 Complex regional pain syndrome I of right lower limb (ICD-10 - G90.521) 11/20/2024 Ms. Damon returns today for office visit and medication [...] reviewed. Meds refilled and f/u 2 months. 05/29/2024 Complex regional pain syndrome I of right lower limb (ICD-10 - G90.521) 11/29/23 Ms. Damon returns today for office visit and medication [...] risk assessment is low. f/u 2 months [id number] - Patient with chronic LBP with radicular [...] validate a good response prior to implant. 07/24/2024 Complex regional pain syndrome I of right lower limb (ICD-10 - G90.521) 11/29/23 Ms. Damon returns today for office visit and medication [...] risk assessment is low. f/u 2 months [id number] - Patient with chronic LBP with radicular [...] validate a good response prior to implant. [id number] - Patient presents today to discuss further [...] assessment for her back and radicular pain. 03/27/2024 Complex regional pain syndrome I of right lower limb (ICD-10 - G90.521) 03/27/2024 Ms. Damon returns today for office visit and medication refill. We have been trying to get SCS trial approved and we are waiting on a neurosurgical evaluation to state that she is not a candidate for any type of corrective procedures. Her evaluation has been put off yet again and consequently we are on hold in regard to a stim trial at the moment. We will continue her current medication which is oxycodone/APAP 7.5/325 mg 3 times daily. She denies any adverse side effects from the medication or any significant changes in her overall condition since her last office visit. Johnathan and UDS were reviewed and are compliant. Opioid risk assessment is low. Refill medication and f/u 2 months 01/15/2025 Complex regional pain syndrome I of right lower limb (ICD-10 - G90.521) 11/20/2024 Ms. Damon returns today for office visit and medication [...] reviewed. Meds refilled and f/u 2 months. 09/14/2024 Complex regional pain syndrome I of right lower limb (ICD-10 - G90.521) 11/29/23 Ms. Damon returns today for office visit and medication [...] risk assessment is low. f/u 2 months [id number] - Patient with chronic LBP with radicular [...] validate a good response prior to implant. [id number] - Patient presents today to discuss further [...] lower limb (ICD-10 - G90.521) 11/29/23 Ms. Damon returns today for office visit and medication [...] risk assessment is low. f/u 2 months [id number] - Patient with chronic LBP with radicular [...] validate a good response prior to implant. [id number] - Patient presents today to discuss further [...] assessment for her back and radicular pain. 05/18/2024 Complex regional pain syndrome I of right lower limb (ICD-10 - G90.521) 03/27/2024 Ms. Damon returns today for office visit and medication refill. We have been trying to get SCS trial approved and we are waiting on a neurosurgical evaluation to state that she is not a candidate for any type of corrective procedures. Her evaluation has been put off yet again and consequently we are on hold in regard to a stim trial at the moment. We will continue her current medication which is oxycodone/APAP 7.5/325 mg 3 times daily. She denies any adverse side effects from the medication or any significant changes in her overall condition since her last office visit. Johnathan and UDS were reviewed and are compliant. Opioid risk assessment is low. Refill medication and f/u 2 months 01/30/2025 Complex regional pain syndrome I of right lower limb (ICD-10 - G90.521) 11/20/2024 Ms. Damon returns today for office visit and medication [...] in two months, or sooner if needed. PLAN OF TREATMENT Pending Test Test Name Order Date Urine Test ANALYZER 12/29/2019 Urine Test ANALYZER 04/23/2020 Urine Test ANALYZER 06/20/2020 Urine Test ANALYZER 10/10/2020 Urine Test ANALYZER 05/29/2022 Urine Test ANALYZER 06/09/2022 Urine Test ANALYZER 09/17/2022 Urine Test ANALYZER 10/29/2022 Urine Test ANALYZER 06/18/2023 Urine Test ANALYZER 01/28/2024 Urine Test ANALYZER 09/14/2024 Urine Test ANALYZER 09/22/2024 Urine Test ANALYZER 09/26/2024 Urine Test ANALYZER 01/15/2025 Urine Test ANALYZER 05/18/2024 Urine Test ANALYZER 01/20/2024 Urine Test LCMS Definitive 01/30/2025 Next Appt Details Provider Name:Red cooney, 03/27/2025 02:15:00 PM, [address], [address], [place], [address], Insurance Providers Payer Name Payer Address Payer Phone Subscriber Number Group Number Insured Name Patient Relationship to Insured Coverage Start Date Coverage End Date [employer] [address] [place] [phone] [id number] Diamond Damon Self - patient is the insured 5 [place] [address] [id number] [phone] [id number] Diamond Damon Self - patient is the insured 9 MEDICAL (GENERAL) HISTORY Medical History History ICD Code anxiety diagnosed managed by Jose De Jesus Renteria APRN asthma diagnosed 1979 managed by Jaelyn Renteria APRN bipolar disorder diagnosed 1993 managed by Jaelyn Renteria APRN COPD diagnosed 1979 managed by Jaeyln mishra APRN fibromyalgia diagnosed 1989 managed by Gabbi Renteria APRN depression diagnosed managed by Ra sonam Renteria APRN seizures diagnosed 2016 managed by Jose De Jesus Renteria APRN Stroke diagnosed 1993 managed by Jaelyn Renteria APRN Hypothyroidism diagnosed 1979 managed by Jaelyn Renteria APRN scoliosis diagnosed 1979 managed by Karyn Renteria APRN Degenerative disc disease diagnosed 1999 managed by Jaelyn Renteria APRN Surgical History Surgery Date(Month/Year) Left ankle surgery x2/ [facility] / with a 3 day stay 1999 Appendectomy/ [facility] / overnigh t stay 2003 Cholecystectomy/ [facility] / overn ight stay 2002 LT Hand Surgery x2/ [facility] / wi th a 3 day stay 1976 Neck (cervical discetomy)Dr. Marc/ [facility] / over night stay 2005 RT Shoulder / [facility] / (OP) 198 2 Tonsillectomy/ [facility] / (OP) 19 66 Tubal abdominal ligation / in [place] / (O P) 1981 Bladder lift / [facility] / Dr. Daniel Crawford / (OP) 2005 Ovarien Cyst Rupture/ [facility] in [facility] / with a 3-4 day stay 1987 oophorectomy (left)/ [facility] / ( OP) 2005 Panacea teeth/ Dr. Hess / (OP) 1976 Hernia repair / [facility] / (OP) 03/14/2021 Hospitalization History Reason Date(Month/Year) Bowel obstruction / [facility] / treated and rel eased 02/2021 Coughing/ [facility]/1 day stay 01/2025
--- NOTE | 2025-02-28 11:49 | XR_ITS ---
PROCEDURE INFORMATION: Exam: XR Left Ankle Exam date and time: 02/28/2025 11:48 AM Age: 64 years old Clinical indication: Pain; Ankle and foot; Bilateral; Additional info: Fall TECHNIQUE: Imaging protocol: Radiologic exam of the left ankle. Views: 3 or more views. COMPARISON: CR XR ANKLE LT MIN 3V 04/03/2024 3:13 PM FINDINGS: Bones/joints: No acute fracture or dislocation. Mild degenerative changes. Postsurgical changes of the distal fibula again demonstrated. Soft tissues: Unremarkable. IMPRESSION: No acute osseous abnormality.
--- NOTE | 2025-02-28 11:49 | XR_ITS ---
PROCEDURE INFORMATION: Exam: XR Left Foot Exam date and time: 02/28/2025 11:45 AM Age: 64 years old Clinical indication: Pain; Ankle and foot; Bilateral TECHNIQUE: Imaging protocol: Radiologic exam of the left foot. Views: 3 or more views. COMPARISON: CR XR FOOT LT MIN 3V 04/03/2024 3:11 PM FINDINGS: Bones/joints: No acute fracture or dislocation. Mild hallux valgus and degenerative change similar to prior. Soft tissues: Unremarkable. IMPRESSION: No acute osseous abnormality.
--- NOTE | 2025-02-28 11:52 | ED_ITS ---
<Statement entered by Ramon Avelar MD - 02/28/25 17:18> I was consulted by the SANKET, and we discussed the complexity of problems being addressed. I approved the treatment and management plan for this patient's care in the emergency department, thus performing a substantial portion of the medical decision making. Ramon Avelar MD Discharge Plan Disposition Patient Disposition: Home, Self-Care Prescriptions Prescriptions: No Action guaifenesin 600 mg tablet extended release 12hr 600 mg PO DAILY Qty: 90 2RF tizanidine 4 mg tablet 4 mg PO Q8H Patient Comments: TAKE ONE TABLET BY MOUTH EVERY 8 HOURS naloxone [Narcan] 4 mg/actuation spray,non-aerosol 4 mg intranasal Q3M PRN (Reason: opioid overdose) Qty: 2 2RF Rx Instructions: spray 1 dose into ONE nostril; alternate nostrils w each dose until help arrives lidocaine 5 % adhesive patch,medicated 1 patch transdermal DAILY PRN (Reason: Pain) Qty: 15 2RF Rx Instructions: APPLY 1 PATCH TOPICALLY TO MOST PAINFUL AREA AND LEAVE ON FOR 12 HOURS THEN REMOVE AND LEAVE OFF FOR 12 HOURS albuterol sulfate [Ventolin HFA] 90 mcg/actuation HFA aerosol inhaler 2 puff inhalation Q6H PRN (Reason: shortness of breath or wheezing) Qty: 8.5 0RF loratadine [Allergy Relief (loratadine)] 10 mg tablet 10 mg PO DAILY Qty: 30 2RF levothyroxine 50 mcg tablet 50 mcg PO DAILY Qty: 90 0RF bupropion HCl 300 mg tablet extended release 24 hr See Rx Instructions .ROUTE .COMPLEX Qty: 30 2RF Dose Instruction: TAKE ONE TABLET BY MOUTH ONCE A DAY Rx Instructions: TAKE ONE TABLET BY MOUTH ONCE A DAY hydrochlorothiazide 12.5 mg tablet See Rx Instructions .ROUTE .COMPLEX Qty: 30 2RF Dose Instruction: TAKE ONE TABLET BY MOUTH ONCE A DAY Rx Instructions: TAKE ONE TABLET BY MOUTH ONCE A DAY sennosides [senna] 8.6 mg tablet See Rx Instructions .ROUTE .COMPLEX Qty: 30 2RF Dose Instruction: TAKE ONE TABLET BY MOUTH ONCE A DAY NEEDED FOR CONSTIPATION Rx Instructions: TAKE ONE TABLET BY MOUTH ONCE A DAY NEEDED FOR CONSTIPATION diazepam 5 mg tablet 5 mg PO BID PRN (Reason: anxiety) Qty: 60 0RF polyethylene glycol 3350 [Miralax] 17 gram/dose powder 17 g PO DAILY Qty: 510 0RF oxycodone-acetaminophen 7.5-325 mg tablet 1 tab PO TID ondansetron 4 mg tablet,disintegrating 4 mg PO Q8H PRN (Reason: nausea and vomiting) 5 Days Qty: 10 0RF valacyclovir [Valtrex] 1 gram tablet 1,000 mg PO DAILY PRN (Reason: herpes) venlafaxine 150 mg capsule,extended release 24hr 150 mg PO DAILY Rx Instructions: TAKE ONE CAPSULE BY MOUTH ONCE A DAY fenofibrate nanocrystallized 145 mg tablet 145 mg PO DAILY Rx Instructions: TAKE ONE TABLET BY MOUTH ONCE A DAY Referrals Follow up/Referrals: Provider,Referral, MD [Primary Care Provider, Medical] - See instructions Clinical Impressions Clinical Impression: Left foot drop, Left ankle pain, Ankle sprain and strain Print Language Print Language: Georgian Discharge ED Provider: Ramon Avelar Adult HPI General Chief complaint: Extremity Injury, Lower Stated complaint: L foot pain Time Seen by Provider: 02/28/25 11:44 Mode of Arrival: Ambulatory Source of Information: Patient Description of Symptoms (Recalled from ER Triage Doc. by RN): PT presents to the ED for evaluation on L foot. PT had a fall 3 weeks ago and felt a pop and just hasnt gotten better. hx of L foot drop. Pedal pulses strong. No swelling noted. No discoloration of skin. Denies blood thinners. PT took 4.5 mg Percocet today. History of Present Illness HPI narrative: 64-year-old female presents to the ED for complaint of left foot and ankle pain after a fall 3 weeks ago. She says she felt a pop and thought it might be the tendon but it just has not gotten better. Patient does already have foot drop on the right foot. She does have minimal swelling around the toes. Related Data Home Medications ?Medication ?Instructions ?Recorded ?Confirmed oxycodone-acetaminophen 7.5 mg-325 1 tab PO TID 02/28/25 mg tablet tizanidine 4 mg tablet 4 mg PO Q8H 01/05/252 5 fenofibrate nanocrystallized 145 145 mg PO DAILY 01/2902/28/25 mg tablet valacyclovir 1 gram tablet 1,000 mg PO DAILY PRN herpe s 01/29/25 02/28/25 (Valtrex) venlafaxine 150 mg 150 mg PO DAILY 01/29/2510/24 capsule,extended release 24 hr Previous Rx's ?Medication ?Instructions ?Recorded polyethylene glycol 3350 17 17 g PO DAILY #510 grams 1 gram/dose oral powder (Miralax) levothyroxine 50 mcg tablet 50 mcg PO DAILY #90 tabs 0 10/06/24 guaifenesin 600 mg tablet, 600 mg PO DAILY #90 tabs extended release 12 hr ondansetron 4 mg disintegrating 4 mg PO Q8H PRN nausea and 01/20/25 tablet vomiting 5 days #10 tabs lidocaine 5 % topical patch 1 patch transdermal DAILY PRN Pain 02/06/25 #15 ea naloxone 4 mg/actuation nasal 4 mg intranasal Q3M PRN opioid 02/06/25 spray (Narcan) overdose #2 ea bupropion HCl 300 mg 24 hr tablet, See Rx Instructions .Route 02/08/25 extended release .COMPLEX #30 tabs hydrochlorothiazide 12.5 mg tablet See Rx Instructions .Route 02/08/25 .COMPLEX #30 tabs albuterol sulfate 90 mcg/actuation 2 puff inhalation Q 6H PRN 02/09/25 aerosol inhaler (Ventolin HFA) shortness of breath or wheezing #8.5 grams loratadine 10 mg tablet (Allergy 10 mg PO DAILY #30 ta bs 02/09/25 Relief (loratadine)) sennosides 8.6 mg tablet (senna) See Rx Instructions . Route 02/12/25 .COMPLEX #30 ea diazepam 5 mg tablet 5 mg PO BID PRN anxiety #60 tabs 02/26/25 Allergies Allergy/AdvReac Type Severity Reaction Status Date / Time calamine Allergy Rash Verified 02/09/25 13:05 meloxicam (From Mobic) Allergy RESTLESS Verified 02/09/25 13:05 LEGS, NAUSEA Antihistamines - Alkylamine AdvReac Mild MANIC Verified 02/09/25 13:05 aripiprazole (From Abilify) AdvReac Mild AGRESSION Verified 02/09/25 13:05 bacitracin (From Neosporin AdvReac Mild MORE RED, Verified 02/09/25 13:05 ([id number])) IRRITATED brexpiprazole (From Rexulti) AdvReac Mild AGRESSIVE Verified 02/09/25 13:05 buspirone (From BuSpar) AdvReac Mild AGRESSIVE Verified 02/09/25 13:05 cariprazine (From Vraylar) AdvReac Mild HIGH ENERGY Verified 02/09/25 13:05 celecoxib (From Celebrex) AdvReac Mild Headache Verified 02/09/25 13:05 chlordiazepoxide (From AdvReac Mild SHAKES Verified 02/09/25 13:05 Librium) chlorpromazine (From AdvReac Mild MANIC Verified 02/09/25 13:05 Thorazine) clomipramine (From Anafranil) AdvReac Mild RLS Verified 02/09/25 13:05 clonazepam (From Klonopin) AdvReac Mild HIGH ENERGY Verified 02/09/25 13:05 codeine AdvReac Mild Anaphylaxis Verified 02/09/25 13:05 cyclobenzaprine (From AdvReac Mild RLS Verified 02/09/25 13:05 Flexeril) desipramine (From Norpramin) AdvReac Mild RLS Verified 02/09/25 13:05 desvenlafaxine (From Pristiq) AdvReac Mild AGRESIVE Verified 02/09/25 13:05 dexmedetomidine AdvReac Mild RLS Verified 02/09/25 13:05 divalproex sodium (From AdvReac Mild HEADACHE, Verified 02/09/25 13:05 Depakote) SWELLING duloxetine (From Cymbalta) AdvReac Mild AGRESSIVE Verified 02/09/25 13:05 eszopiclone (From Lunesta) AdvReac Mild NOT Verified 02/09/25 13:05 AFFECTIVE fluoxetine (From Prozac) AdvReac Mild MANIC Verified 02/09/25 13:05 hydrocodone (From Vicodin) AdvReac Mild ITCHING Verified 02/09/25 13:05 ibuprofen AdvReac Mild RLS Verified 02/09/25 13:05 lorazepam (From Ativan) AdvReac Mild RLS Verified 02/09/25 13:05 lurasidone (From Latuda) AdvReac Mild HYPER Verified 02/09/25 13:05 meperidine (From Demerol) AdvReac Mild RLS Verified 02/09/25 13:05 mirtazapine (From Remeron) AdvReac Mild RLS Verified 02/09/25 13:05 morphine AdvReac Mild Anaphylaxis Verified 02/09/25 13:05 neomycin (From Neosporin AdvReac Mild REDNESS Verified 02/09/25 13:05 ([id number])) paroxetine (From Paxil) AdvReac Mild RLS Verified 02/09/25 13:05 perphenazine (From Trilafon) AdvReac Mild RLS Verified 02/09/25 13:05 polymyxin B (From Neosporin AdvReac Mild REDNESS Verified 02/09/25 13:05 ([id number])) propranolol (From Inderal [place]) AdvReac Mild RLS Verified 02/09/25 13:05 quetiapine (From Seroquel) AdvReac Mild MANIC Verified 02/09/25 13:05 risperidone (From Risperdal) AdvReac Mild AGRESSIVE Verified 02/09/25 13:05 temazepam (From Restoril) AdvReac Mild HYPER Verified 02/09/25 13:05 topiramate (From Topamax) AdvReac Mild RLS Verified 02/09/25 13:05 tramadol (From Ultram) AdvReac Mild HYPER Verified 02/09/25 13:05 vortioxetine (From AdvReac Mild HYPER Verified 02/09/25 13:05 Trintellix) ziprasidone (From Geodon) AdvReac Mild HYPER Verified 02/09/25 13:05 zolpidem (From Ambien) AdvReac Mild HYPER Verified 02/09/25 13:05 acetaminophen (From Vicodin) AdvReac Hallucinati Verified 02/09/25 13:05 ng steroids Allergy Mild AGRESSION Uncoded 02/09/25 13:05 PFSH PFSH Disclaimer: The information contained in this section may have been updated after the patient was seen, as this information can be updated by other users. Medical History Homicidal ideation Suicidal ideation History of anoxic brain injury Apparently associated with amitriptyline overdose in 1993, details unknown Stroke Daytime somnolence Postmenopausal bleeding Constipation Constipation Low back pain Herpes genitalis in women Falls Hx of falls related to CVA weakness, drop foot Imbalance Reports intermittent imbalance throughout her life span, multiple falls, some with injuries History of cocaine use Younger days Peroneal tendinitis, left leg Left-sided weakness History of stroke Apparently associated with amitriptyline overdose in 1993, details unknown Primary osteoarthritis of right knee Acute pain of right knee Left foot pain Patient new to facility Asthma Dyspnea on exertion History of multiple strokes Frequent falls Hyperlipemia Sjogrens syndrome Muscle spasm Dystonia Surgical History History of foot surgery History of left oophorectomy History of endometrial ablation H/O cervical spine surgery H/O hernia repair History of tonsillectomy Hx of appendectomy History of cholecystectomy History of arthroplasty of left ankle Family History Other Cancer Coronary artery disease Diabetes FHx: mental illness Hypertension Substance abuse Thyroid disorder Social History Smoking Status: Never smoker alcohol intake: former substance use type: denies use, former substance user, marijuana, crack/cocaine, opiates and prescription drug current occupational status: disabled Travel in the last 8 weeks?: None household members: significant other housing: house marital status: Have you lived/traveled outside US in past 30 days?: No Contact w/someone who lives/traveled outside US past 30 days?: No Exposure to someone with infectious disease in past 14 days?: No Do you have a fever (greater than 100.4 F or 38 C)?: No Have you tested positive for COVID-19?: No Exposed to someone with COVID-19 in past 14 days?: No Do you have a sore throat?: No Do you have a cough?: No Do you have any weakness?: No Do you have any diarrhea?: No Are you experiencing any unusual bleeding?: No Do you have any muscle aches/pain?: No Do you have any abdominal pain?: No Are you experiencing loss of taste or smell?: No Other Medical History Have you received the Flu Vaccine for this season: No Have you received the Pneumonia Vaccine: No ROS Obtained: Yes Systems reviewed as appropriate & no additional complaints except as documented Constitutional Constitutional: Reports as per HPI Physical Exam General General appearance: alert and in no apparent distress Head Head exam: normocephalic Eye Eye exam: Present PERRL and EOMI ENT ENT exam: Present normal oropharynx and mucous membranes moist Neck Neck exam: Present normal inspection, full ROM and trachea midline Respiratory Respiratory exam: Present normal lung sounds bilaterally Cardiovascular Cardiovascular exam: Present regular rate, normal rhythm, normal heart sounds, +S1 and +S2 Extremities Exam Extremities exam: Present normal inspection, full ROM and normal capillary refill Neurological Exam Neurological exam: Present alert and oriented X3 Skin Skin exam: Present warm, dry, intact and other (Left foot with mild swelling around the toes) Medical Decision Making Medical Records Medical records reviewed: Yes I reviewed the patient's medical records. Screening: Per USPSTF and CDC recommendations, given the prevalence of disease in our region, it is our hospital?s policy to screen for HIV and viral Hepatitis for all patients aged 18 and over and those with ongoing risk factors. Nghia Inquiry Pt receiving controlled substance: No Nghia was queried for this patient: No Vital Signs: 02/28/25 11:34 02/28/25 13:02 Temperature 97.6 F Temperature Source Tympanic Pulse Rate 75 Pulse Rate [Right] 81 Respiratory Rate 18 Blood Pressure 155/89 H Blood Pressure [Right Arm] 161/87 H Blood Pressure Mean [Right Arm] 111 02 Sat by Pulse Oximetry 99 97 Oxygen Delivery Method Room Air Room Air Orders (Tests/Meds): ORDERS Category Date Time Status Ankle XR - Left minimum 3 Views [XR ankle LT min 3V] Exams 02/28/25 11:49 Completed Stat Foot XR left minimum 3 views [XR foot LT min 3V] Stat Exams 02/28/25 11:49 Completed Medical Decision Narrative: patient is a 64-year-old female presenting to the emergency department for evaluation of left ankle and foot pain after a fall 3 weeks ago. Patient is hemodynamically stable and nontoxic-appearing upon arrival, afebrile. Differential diagnosis includes ankle and foot sprain or strain versus fracture. Workup will be conducted with left foot and ankle x-rays. X-rays were informally read by myself as negative. Formal imaging was read as negative as well. Patient will be given an ankle brace for comfort. She declines Ortho follow-up. She will follow-up with her PCP. Patient safe for discharge home. Critical Care Critical Care Time Critical Care Time: No
[2025-02-28 13:02] VITALS: BP 155/89; PULSE 75; O2SAT 97
[2025-02-28 14:12] VITALS: BP 125/86; PULSE 85; RESP 16; TEMP 36.7; O2SAT 99
== END 2025-02-28 14:13 | disposition home or self-care (01) ==
PROVIDERS: Emergency Provider Emergency Medicine
DX: S93.402A Sprain of unspecified ligament of left ankle, initial encounter (principal); S96.912A Strain of unspecified muscle and tendon at ankle and foot level, left foot, initial encounter; M79.672 Pain in left foot; W19.XXXA Unspecified fall, initial encounter
CPT/HCPCS: 73610; 73630; 99283

== ENCOUNTER 2025-03-14 09:42 | Outpatient (CLI) | payer MEDICARE, MEDICAID, SELFPAY ==
--- OUTSIDE RECORDS SUMMARY | 2025-01-15 09:45 | XMS_ITS ---
Author Organization [facility] ex Address [address] [place] [address] Care Team Providers Care Attending Urologist Name Role Phone Red Tamayo II Unavailable [...] Diagnosis [facility] [address] [place] [address] 01/15/2025 Red Tamayo Other [facility]p (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 Z79.899 ; lumbar spondylosis M47.816 ; cervical spondylosis M47.812 ; Postlaminectomy syndrome, not elsewhere classified M96.1 and Complex regional pain syndrome I of right lower limb G90.521 Assessments Encounter Date Diagnosis (ICD Code) Assessment Notes Treatment Notes Treatment Clinical Notes Section Notes 01/15/2025 Other usp (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 (ICD-10 - Z79.899) 11/20/2024 [...] 28 day(s) Treatment Notes Assessment Notes Other usp (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 Refer patient to NS.- waiting to reschedule appt. 3. Follow up in 2 months 4. refill tizanidine 4mg TID Pending Test Test Name Order Date Urine Test ANALYZER 01/15/2025 Next Appt Details Follow Up: 2 Months, Reason: Provider Name:Red cooney, 03/27/2025 02:15:00 PM, [address], [address], [place], [address], Procedure Notes * Category Sub-Category Detail Notes PROVIDER ENCOUNTER AND OVERSIGHT Consult Performed By: Cristina-Lotus MIRAMONTES 11/20/2024 2:58:33 PM > collaborated treatment plan with Red vallejo M.D., supervising physician who was present in office during consultation Progress Notes * Diamond LOUIEDOB: [birth year] (64 yo F)Acc No.[id number]:01/15/2025 FollowUP Patient: Chinedu LEMUS Diamond Provider: Tianna Tamayo II, M.D. :1960 A ge:64 Y S ex:Female Date:01/15/2025 Address:[address] [place], [place] [id number] Subjective: * Chief Complaints: * 1 . [...] of a left asymmetric disc bulge producing uqmmflte-wn-wjyogq left neuroforaminal stenosis and subarticular recess narrowing. [...] with no relief A shira Therapy- At [facility] 1994 which helped after her stroke [...] History: L eft ankle surgery x2/ [facility] / with a 3 day stay 1999, Appendectomy/ [facility] / overnight stay 2003, Cholecystectomy/ [facility] / overnight stay 2002, LT Hand Surgery x2/ [facility] / with a 3 day stay 1976, Neck (cervical discetomy)Dr. Marc/ [facility] / over night stay 2004, RT Shoulder / [facility] / (OP) 1981, Tonsillectomy/ [facility] / (OP) 1965, Tubal abdominal ligation / in [place] / (OP) 1981, Bladder lift / [facility] / Dr. Alicia Crawford / (OP) 2005, Ovarien Cyst Rupture/ [facility] in [facility] / with a 3-4 day stay 1987, oophorectomy (left)/ [facility] / (OP) 2005, [place] teeth/ Dr. Hess / (OP) 1976, Hernia repair / [facility] / (OP) 03/14/2021. * Hospitalization/Major Diagno stic [...] * Vitals: * Examination: G eneral Examination: Nurse/Clarity Developer: Bethany gonzalez(MA-Ray)[place] 11/20/2024 2:29:18 PM > . [...] . Assessment: * Assessment: 1. 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 c ollaborated treatment plan with Tianna Tamayo M.D., supervising physician who was present in office during consultation. * Follow Up: 2 Months * * Electronic signature of Nigel Tamayo II, M.D. on 03/14/2025 at 08:45 AM CDT Sign off status: Pending * Provider: Tianna Tamayo II, M.D. Date: 0 01/15/2025 Generated for Bacilio anna/Sajan/eTransmitting on: 0 03/14/2025 08:45 AM CDT History and Physical Notes * HPI [...] of a left asymmetric disc bulge producing ohxpndni-ol-ubeder left neuroforaminal stenosis and subarticular recess narrowing. Far left lateral component encroaches upon and may abut or contact the exiting left L5 nerve root PHYSICAL/AQUA THERAPY/DME/OT HER HISTORY: Physical Therapy- 2018 with no relief Aqua Therapy- At [facility] 1994 which helped after her stroke [...] leads removed, tip intact. Sterile dressing applied Nurse/Clarity Developer: Maine Graham (MA-Lex) 11/20/2024 2:29:18 PM > [...]
--- OUTSIDE RECORDS SUMMARY | 2025-01-30 09:15 | XMS_ITS ---
Author Organization [facility] ex Address [address] [place] [address] Care Team Providers Care Cigar Packer And Grader Name Role Phone Red Tamayo II Unavailable [phone] Jaelyn Guerrero Unavailable Unavailable Allergies Allergen (clinical [...] prednisone prednisone anaphylaxis Drug Allergy Act sheldon Results Component Value Reference Range Notes Urine Test ANALYZER Reviewed date:01/30/2025 01:35:09 PM Interpretation:+EMANUEL Performing Lab: Notes/Report: +EMANUEL Heroin Metabolite (6AM) NEG Amphetamine (AMP) NEG Benzodiazepine (EMANUEL) POS Buprenorphine NEG Cocaine (KYLE) NEG Hydrocodone (HYD) NEG Methadone (MTD) NEG Opiate (OPI) NEG Oxycodone (OXY) NEG REASON FOR VISIT Neck pain, Low back pain, MARY shoulder pain Medications Medication SIG (Take, Route, Frequency, Duration) Notes Start Date End Date Status venlafaxine 150 mg 1 cap(s) orally once a day; Duration: 30 day(s) 10/29/2022 Active buPROPion 150 mg/12 hours 1 tab(s) orally 2 times a day; Duration: 30 day(s) 10/29/2022 Active acyclovir 400 mg 1 tab(s) orally 2 times a day 10/29/2022 Active fenofibrate 145 mg 1 tab(s) orally once a day; Duration: 30 day(s) 10/29/2022 Active Meclizine 25 mg 1 tab Oral tid prn; Duration: 15 days 10/29/2022 Active SUMAtriptan 6 mg/0.5 mL as directed subcutaneously once 10/29/2022 Active diazePAM 5 mg 1 tab(s) orally 3 times a day 09/30/2021 Active acetaminophen-oxycodo ne 325 mg-7.5 mg 1 tab(s) orally 3 times a day; Duration: 28 days February 2025 RX DO NOT FILL SOONER THAN 28 DAYS, (OK TO FILL EARLY, ONLY IF CLOSED) Fax PA request to [phone] or [phone] Active TiZANidine Hydrochloride 4 mg 1 tab(s) orally every 8 hours; Duration: 30 days DO NOT FILL SOONER THAN 28 DAYS, (OK TO FILL EARLY, ONLY IF CLOSED) Fax PA request to [phone] or [phone] Active benzonatate 100 mg 1 cap(s) orally 3 times a day; Duration: 5 day(s) 10/20/2022 Active acetaminophen-oxycodo ne 325 mg-7.5 mg 1 tab(s) orally 3 times a day; Duration: 28 days January 2025 RX DO NOT FILL SOONER THAN 28 DAYS, (OK TO FILL EARLY, ONLY IF CLOSED) Fax PA request to [phone] or [phone] Active Social History Alcohol Screen Question Answer Notes Did you have a drink contain ing alcohol in the past year? Yes How often did you have a dri nk containing alcohol in the past year? Monthly or less (1 point) Points 1 Interpretation Negative Vital Signs Blood pressure systolic 121 mm Hg 01/31/20 25 Blood pressure diastolic 77 mm Hg 025 Heart Rate 91 /min 01/30/2025 Height 65 in 01/30/2025 Weight 130 lbs 01/30/2025 BMI 21.63 kg/m2 01/30/2025 Encounters Encounter Location Date Provider Diagnosis [facility] [address] [place] [address] 01/30/2025 Red Tamayo Other technician terminal and repeater (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 Z79.899 ; lumbar spondylosis M47.816 ; cervical spondylosis M47.812 ; Postlaminectomy syndrome, not elsewhere classified M96.1 and Complex regional pain syndrome I of right lower limb G90.521 Assessments Encounter Date Diagnosis (ICD Code) Assessment Notes Treatment Notes Treatment Clinical Notes Section Notes 01/30/2025 Other detention (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 (ICD-10 - Z79.899) 01/30/2025 1. Refill percocet 7.5/325mg TID 2. Refer patient to NS.- waiting to reschedule appt. 3. Follow up in 2 months 4. Refill tizanidine 4mg TID 5. benzo letter to Mee Agrawal A.P.R.N. (sent 01/30) 01/30/2025 Screen Unexpected(-) Sent for Definitive, 11/20/2024 Ms. Louie returns today for office [...] reviewed. Meds refilled and f/u 2 months. 01/30/2025 The patient is a 64-year-old female who presents for follow-up regarding chronic pain management, primarily focused on her low back, neck, bilateral shoulders, and foot pain. She reports her current pain as constant and fluctuating, with an average intensity of 10/10. The pain is described as aching, burning, sharp, stabbing, cramping, numb, and tingling, and significantly interferes with her daily activities, including housework and pet care. She is currently prescribed oxycodone 7.5/325 mg TID, which provides approximately 65% pain relief for about 2 hours. The last dose was taken 2-3 days ago. She also takes tizanidine 4 mg TID. She denies any side effects from her current medications. The patient has a complex pain history and has undergone various treatments, including physical therapy, home exercise program, oral analgesics, and lumbar injections. She previously underwent an intrathecal pain pump (ITP) trial in May 2022, which provided 80% pain relief and improved function for 7 days. However, she had a significant allergic reaction to dilaudid during the trial, including severe itching and nausea/vomiting. She is also allergic to morphine and expresses fear about using fentanyl. She reports that demerol did not cause any adverse effects in the past. Although she is interested in a permanent ITP implant due to the benefit from the trial, she prefers to use an alternative opioid if possible and still has a few questions about possitble medications. She understands that her insurance requires a neurosurgical consultation prior to authorizing an ITP implant and is willing to undergo this evaluation. However, she missed her prior appointment and is currently awaiting rescheduling. WE will get this scheduled for her again. In the interim, she continues to refuse further injection therapy at this time. She also reports multiple medication allergies and expresses fear of side effects. A Benzo letter for diazepam management was requested to be sent to Mee Agrawal APRN, for ongoing management. JOHNATHAN and urine drug screen (UDS) were reviewed and are both compliant. The patient will continue her current regimen of oxycodone 7.5 mg TID and tizanidine 4 mg TID. Follow-up is scheduled in two months, or sooner if needed. 01/30/2025 lumbar spondylosis (ICD-10 - M47.816) 11/20/2024 Ms. [...] reviewed. Meds refilled and f/u 2 months. 01/30/2025 The patient is a 64-year-old female who presents for follow-up regarding chronic pain management, primarily focused on her low back, neck, bilateral shoulders, and foot pain. She reports her current pain as constant and fluctuating, with an average intensity of 10/10. The pain is described as aching, burning, sharp, stabbing, cramping, numb, and tingling, and significantly interferes with her daily activities, including housework and pet care. She is currently prescribed oxycodone 7.5/325 mg TID, which provides approximately 65% pain relief for about 2 hours. The last dose was taken 2-3 days ago. She also takes tizanidine 4 mg TID. She denies any side effects from her current medications. The patient has a complex pain history and has undergone various treatments, including physical therapy, home exercise program, oral analgesics, and lumbar injections. She previously underwent an intrathecal pain pump (ITP) trial in May 2022, which provided 80% pain relief and improved function for 7 days. However, she had a significant allergic reaction to dilaudid during the trial, including severe itching and nausea/vomiting. She is also allergic to morphine and expresses fear about using fentanyl. She reports that demerol did not cause any adverse effects in the past. Although she is interested in a permanent ITP implant due to the benefit from the trial, she prefers to use an alternative opioid if possible and still has a few questions about possitble medications. She understands that her insurance requires a neurosurgical consultation prior to authorizing an ITP implant and is willing to undergo this evaluation. However, she missed her prior appointment and is currently awaiting rescheduling. WE will get this scheduled for her again. In the interim, she continues to refuse further injection therapy at this time. She also reports multiple medication allergies and expresses fear of side effects. A Benzo letter for diazepam management was requested to be sent to Mee Agrawal APRN, for ongoing management. JOHNATHAN and urine drug screen (UDS) were reviewed and are both compliant. The patient will continue her current regimen of oxycodone 7.5 mg TID and tizanidine 4 mg TID. Follow-up is scheduled in two months, or sooner if needed. 01/30/2025 cervical spondylosis (ICD-10 - M47.812) 11/20/2024 Ms. [...] reviewed. Meds refilled and f/u 2 months. 01/30/2025 The patient is a 64-year-old female who presents for follow-up regarding chronic pain management, primarily focused on her low back, neck, bilateral shoulders, and foot pain. She reports her current pain as constant and fluctuating, with an average intensity of 10/10. The pain is described as aching, burning, sharp, stabbing, cramping, numb, and tingling, and significantly interferes with her daily activities, including housework and pet care. She is currently prescribed oxycodone 7.5/325 mg TID, which provides approximately 65% pain relief for about 2 hours. The last dose was taken 2-3 days ago. She also takes tizanidine 4 mg TID. She denies any side effects from her current medications. The patient has a complex pain history and has undergone various treatments, including physical therapy, home exercise program, oral analgesics, and lumbar injections. She previously underwent an intrathecal pain pump (ITP) trial in May 2022, which provided 80% pain relief and improved function for 7 days. However, she had a significant allergic reaction to dilaudid during the trial, including severe itching and nausea/vomiting. She is also allergic to morphine and expresses fear about using fentanyl. She reports that demerol did not cause any adverse effects in the past. Although she is interested in a permanent ITP implant due to the benefit from the trial, she prefers to use an alternative opioid if possible and still has a few questions about possitble medications. She understands that her insurance requires a neurosurgical consultation prior to authorizing an ITP implant and is willing to undergo this evaluation. However, she missed her prior appointment and is currently awaiting rescheduling. WE will get this scheduled for her again. In the interim, she continues to refuse further injection therapy at this time. She also reports multiple medication allergies and expresses fear of side effects. A Benzo letter for diazepam management was requested to be sent to Mee Agrawal APRN, for ongoing management. JOHNATHAN and urine drug screen (UDS) were reviewed and are both compliant. The patient will continue her current regimen of oxycodone 7.5 mg TID and tizanidine 4 mg TID. Follow-up is scheduled in two months, or sooner if needed. 01/30/2025 Postlaminectomy syndrome, not elsewhere classified (ICD-10 - [...] reviewed. Meds refilled and f/u 2 months. 01/30/2025 The patient is a 64-year-old female who presents for follow-up regarding chronic pain management, primarily focused on her low back, neck, bilateral shoulders, and foot pain. She reports her current pain as constant and fluctuating, with an average intensity of 10/10. The pain is described as aching, burning, sharp, stabbing, cramping, numb, and tingling, and significantly interferes with her daily activities, including housework and pet care. She is currently prescribed oxycodone 7.5/325 mg TID, which provides approximately 65% pain relief for about 2 hours. The last dose was taken 2-3 days ago. She also takes tizanidine 4 mg TID. She denies any side effects from her current medications. The patient has a complex pain history and has undergone various treatments, including physical therapy, home exercise program, oral analgesics, and lumbar injections. She previously underwent an intrathecal pain pump (ITP) trial in May 2022, which provided 80% pain relief and improved function for 7 days. However, she had a significant allergic reaction to dilaudid during the trial, including severe itching and nausea/vomiting. She is also allergic to morphine and expresses fear about using fentanyl. She reports that demerol did not cause any adverse effects in the past. Although she is interested in a permanent ITP implant due to the benefit from the trial, she prefers to use an alternative opioid if possible and still has a few questions about possitble medications. She understands that her insurance requires a neurosurgical consultation prior to authorizing an ITP implant and is willing to undergo this evaluation. However, she missed her prior appointment and is currently awaiting rescheduling. WE will get this scheduled for her again. In the interim, she continues to refuse further injection therapy at this time. She also reports multiple medication allergies and expresses fear of side effects. A Benzo letter for diazepam management was requested to be sent to Mee Agrawal APRN, for ongoing management. JOHNATHAN and urine drug screen (UDS) were reviewed and are both compliant. The patient will continue her current regimen of oxycodone 7.5 mg TID and tizanidine 4 mg TID. Follow-up is scheduled in two months, or sooner if needed. 01/30/2025 Complex regional pain syndrome I of right [...] reviewed. Meds refilled and f/u 2 months. 01/30/2025 The patient is a 64-year-old female who presents for follow-up regarding chronic pain management, primarily focused on her low back, neck, bilateral shoulders, and foot pain. She reports her current pain as constant and fluctuating, with an average intensity of 10/10. The pain is described as aching, burning, sharp, stabbing, cramping, numb, and tingling, and significantly interferes with her daily activities, including housework and pet care. She is currently prescribed oxycodone 7.5/325 mg TID, which provides approximately 65% pain relief for about 2 hours. The last dose was taken 2-3 days ago. She also takes tizanidine 4 mg TID. She denies any side effects from her current medications. The patient has a complex pain history and has undergone various treatments, including physical therapy, home exercise program, oral analgesics, and lumbar injections. She previously underwent an intrathecal pain pump (ITP) trial in May 2022, which provided 80% pain relief and improved function for 7 days. However, she had a significant allergic reaction to dilaudid during the trial, including severe itching and nausea/vomiting. She is also allergic to morphine and expresses fear about using fentanyl. She reports that demerol did not cause any adverse effects in the past. Although she is interested in a permanent ITP implant due to the benefit from the trial, she prefers to use an alternative opioid if possible and still has a few questions about possitble medications. She understands that her insurance requires a neurosurgical consultation prior to authorizing an ITP implant and is willing to undergo this evaluation. However, she missed her prior appointment and is currently awaiting rescheduling. WE will get this scheduled for her again. In the interim, she continues to refuse further injection therapy at this time. She also reports multiple medication allergies and expresses fear of side effects. A Benzo letter for diazepam management was requested to be sent to Mee Agrawal APRN, for ongoing management. JOHNATHAN and urine drug screen (UDS) were reviewed and are both compliant. The patient will continue her current regimen of oxycodone 7.5 mg TID and tizanidine 4 mg TID. Follow-up is scheduled in two months, or sooner if needed. Plan Of Treatment Medication Medication Name Sig Start Date Stop Date Notes acetaminophen-oxycodone 325 mg-7.5 mg 1 tab(s) orally 3 times a day; Duration: 28 days February 2025 RX DO NOT FILL SOONER THAN 28 DAYS, (OK TO FILL EARLY, ONLY IF CLOSED) Fax PA request to [phone] or [phone] TiZANidine Hydrochloride 4 mg 1 tab(s) orally every 8 hours; Duration: 30 days DO NOT FILL SOONER THAN 28 DAYS, (OK TO FILL EARLY, ONLY IF CLOSED) Fax PA request to [phone] or [phone] acetaminophen-oxycodone 325 mg-7.5 mg 1 tab(s) orally 3 times a day; Duration: 28 days January 2025 RX DO NOT FILL SOONER THAN 28 DAYS, (OK TO FILL EARLY, ONLY IF CLOSED) Fax PA request to [phone] or [phone] Treatment Notes Assessment Notes Other technician terminal and repeater (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 01/30/2025 1. Refill percocet 7.5/325mg TID 2. Refer patient to NS.- waiting to reschedule appt. 3. Follow up in 2 months 4. Refill tizanidine 4mg TID 5. benzo letter to Mee Agrawal A.P.R.N. (sent 01/30) 01/30/2025 Screen Unexpected(-)Sent for Definitive, Next Appt Details Follow Up: 2 Months, Reason: Provider Name:Red cooney, 03/27/2025 02:15:00 PM, [address] [facility], [place], [address], [place], [address], Procedure Notes * Category Sub-Category Detail Notes PROVIDER ENCOUNTER AND OVERSIGHT Consult Performed By: Ignacio (KEENA EMERGENCY MEDICINE PHYSICIAN-BC-RAYMarlena Aranda 02/04/2025 07:20:57 PM > collaborated treatment plan with Red vallejo M.D., supervising physician who was present in office during consultation Progress Notes * Dimitri LOUIE: [birth year] (64 yo F)Acc No.[id number]:01/30/2025 FollowUP Patient: Diamond Bravo Provider: Tianna Tamayo II, M.D. Resource:Ignacio (CERTIFIED PERSONAL FINANCE COUNSELOR EMERGENCY MEDICINE PHYSICIAN-BC-RAY)Marlena :1960 A ge:64 Y S ex:Female Date:01/30/2025 Address:[address] [place] [address] LE[place]N Gómez [id number] Subjective: * Chief Complaints: * 1 . Neck pain. 2. Low back pain. 3. MARY shoulder pain. * HPI: T ODAYS PAIN EVALUATION: 64 year old female presents with c/o MEDICATION FOLLOW UP: T he patient is currently prescribed Oxycodone 7.5/325mg TID, which provides 65% relief of pain symptoms for 2 hours. The last dose was taken 2 -3 days Denies side effects. CURRENT PAIN SYMPTOMS: L ocation of Worst Pain: L ow Back, P ain Frequency: c onstant, fluctuating, always, P ain Description: a emmett, burning, cramping, sharp, stabbing, numb, tingling, A verage Pain Score VAS: 1 0, P ain Exacerbation: my life feel like , P ain Alleviation: laying down, A DL/Quality of Life Interference: housework,pet care,, Everything. P AIN MANAGEMENT TREATMENT HISTORY: IMAGING HISTORY: 11/01/2017 MRI CERVICAL -Stable posterior disc osteophyte complex at the C4/C5 level creating no new central spinal canal stenosis. Very little interval change when compared to the prior study. 04/21/2018 MRI LUMBAR -Multilevel spondylitic changes, greatest at the L5-S1 level, where there is far left lateral components of a left asymmetric disc bulge producing [id number] left neuroforaminal stenosis and subarticular recess narrowing. Far left lateral component encroaches upon and may abut or contact the exiting left L5 nerve root . P REVIOUS INJECTION\PROCEDURE HISTORY: 0 02/15/2020- #1 [facility] MARY L234 with [...] 1994 which helped after her stroke 0 01/30/2025 No therapies reported pt denies . P ERTINENT SURGICAL EVALUATIONS/SPECIALIST CONSULTS N o prior surgical consult . P REVIOUS PAIN CLINIC CARE: Tianan Jin . S JOMARY OF INITIAL EVALUATION: 0 09/26/2019- New patient [...] Previous Clinic . U RINE DRUG TESTIN 02/01/2024 Screen Expected 0 03/27/2024 Screen Expected 0 05/29/2024 Screen Expected 1 09/23/2023 Screen Expected 0 09/26/2024 Screen Expected Definitive Expected 0 11/20/2024 Screen Expected 0 01/30/2025 Screen Unexpected(-)Sent for Definitive, . M ONITORING: M orphine Equivalent (MME): [...] APRN , [facility] , fibromyalgia diagnosed 1989 managed by Jaelyn Renteria APRN , depression diagnosed managed by Jaelyn Renteria APRN , seizures diagnosed 2016 managed by Jaelyn Renteria APRN , Stroke diagnosed 1993 managed by [facility] Renteria APRN , [facility] CERTIFIED PERSONAL FINANCE COUNSELOR , scoliosis diagnosed 1979 [facility] , Degenerative disc disease diagnosed 1999 managed by Jaelyn Renteria APRN . * Surgical History: L eft ankle surgery x2/ [facility] / with a 3 day stay 1999, Appendectomy/ [facility] / overnight stay 2003, Cholecystectomy/ [facility] / overnight stay 2002, LT Hand Surgery x2/ [facility] / with a 3 day stay 1976, Neck (cervical discetomy)Dr. Marc/ [facility] / over night stay 2004, RT Shoulder / [facility] / (OP) 1981, Tonsillectomy/ [facility] / (OP) 1965, Tubal abdominal ligation / in [place] / (OP) 1981, Bladder lift / [facility] / Dr. Alicia Crawford / (OP) 2005, Ovarien Cyst Rupture/ [facility] in [facility] / with a 3-4 day stay 1987, oophorectomy (left)/ [facility] / (OP) 2005, [place] teeth/ Dr. Hess / (OP) 1976, Hernia repair / [facility] / (OP) 03/14/2021. * Hospitalization/Major Diagno stic Procedure: B owel obstruction / [facility] / treated and released 02/2021, Coughing/ [facility]/1 day stay 01/2025. * Family History: Family history of substance abuse: admits. * Social History: n o Smoking C igarettes Nonsmoker. N o Personal History Drug Use, Denies, past yrs 14-25. Alcohol: Yes, Rarely. [...] tablet 1 tab(s) orally 3 times a day, Taking TiZANidine Hydrochloride 4 mg tablet 1 tab(s) orally every 8 hours, Taking diazePAM 5 mg tablet 1 tab(s) orally 3 times a day, Taking benzonatate 100 mg capsule 1 cap(s) orally 3 times a day, Taking SUMAtriptan 6 mg/0.5 mL solution as directed subcutaneously once, Taking venlafaxine 150 mg capsule, extended release 1 cap(s) orally once a day, Taking acyclovir 400 mg tablet 1 tab(s) orally 2 times a day, Taking buPROPion 150 mg/12 hours tablet, extended release 1 tab(s) orally 2 times a day, Taking Meclizine 25 mg 1 tab Oral tid prn, Taking fenofibrate 145 mg tablet 1 tab(s) orally once a day, Medication List reviewed and reconciled with the patient * Allergies: N eosporin: rash - Allergy, codeine: anaphylaxis - Allergy, diphenhydramine: hives - Allergy, morphine: anaphylaxis - Allergy, prednisone: anaphylaxis - Allergy, ibuprofen: hives - Allergy, methadone: stomach upset - Side Effects, Soma: hives - Allergy, Dilaudid: hives - Allergy. Objective: * Vitals: B P:121/77, HR:91, Pain VAS (0-10):10, Ht: 65, Wt:130, BMI:21.63 Index. * Examination: G eneral Examination: Nurse/Food Assembler: Gabbi colon(MA-Ray),Chayo 01/30/2025 1:29:48 PM > . General Appearance: NAD, well [...] . Assessment: * Assessment: 1. O ther detention (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 - Z79.899 (Primary) 2 . l umbar spondylosis - M47.816 3 . c ervical spondylosis - M47.812 4 . P ostlaminectomy syndrome, not elsewhere classified - M96.1 5 [...] reviewed. Meds refilled and f/u 2 months. 01/30/2025 The patient is a 64-year-old female who presents for follow-up regarding chronic pain management, primarily focused on her low back, neck, bilateral shoulders, and foot pain. She reports her current pain as constant and fluctuating, with an average intensity of 10/10. The pain is described as aching, burning, sharp, stabbing, cramping, numb, and tingling, and significantly interferes with her daily activities, including housework and pet care. She is currently prescribed oxycodone 7.5/325 mg TID, which provides approximately 65% pain relief for about 2 hours. The last dose was taken 2-3 days ago. She also takes tizanidine 4 mg TID. She denies any side effects from her current medications. The patient has a complex pain history and has undergone various treatments, including physical therapy, home exercise program, oral analgesics, and lumbar injections. She previously underwent an intrathecal pain pump (ITP) trial in May 2022, which provided 80% pain relief and improved function for 7 days. However, she had a significant allergic reaction to dilaudid during the trial, including severe itching and nausea/vomiting. She is also allergic to morphine and expresses fear about using fentanyl. She reports that demerol did not cause any adverse effects in the past. Although she is interested in a permanent ITP implant due to the benefit from the trial, she prefers to use an alternative opioid if possible and still has a few questions about possitble medications. She understands that her insurance requires a neurosurgical consultation prior to authorizing an ITP implant and is willing to undergo this evaluation. However, she missed her prior appointment and is currently awaiting rescheduling. WE will get this scheduled for her again. In the interim, she continues to refuse further injection therapy at this time. She also reports multiple medication allergies and expresses fear of side effects. A Benzo letter for diazepam management was requested to be sent to Mee Agrawal APRN, for ongoing management. JOHNATHAN and urine drug screen (UDS) were reviewed and are both compliant. The patient will continue her current regimen of oxycodone 7.5 mg TID and tizanidine 4 mg TID. Follow-up is scheduled in two months, or sooner if needed. Plan: * Treatment: Value Reference Range H eroin Metabolite (6AM) NEG * A mphetamine (AMP) NEG * B enzodiazepine (EMANUEL) POS * B uprenorphine NEG * C ocaine (KYLE) NEG * H ydrocodone (HYD) NEG * M ethadone (MTD) NEG * O piate (OPI) NEG * O xycodone (OXY) NEG * Kalli Rivera 01/30/2025 1:59:05 PM >Ignacio (CERTIFIED PERSONAL FINANCE COUNSELOR EMERGENCY MEDICINE PHYSICIAN-BC-RAY)Marlena 01/30/2025 02:21:35 PM > (Confirm All) Send specimen for definitive testing on Amphetamines, Anticonvulsants, Antitussive, Barbiturates,Bath Salts, Benzodiazepines, Buprenorphine, Fentanyl,CIPRIANO Analogue, Heroin, Illicits, Methadone, Methylphenidate, Muscle Relaxants, Nicotine, Opiates, Opioid Antagonist, Other Anxiolytic,Recreational Compounds, Sleep Aids, SSRI/SNRI,Synthetic Cannabinoids,Tricyclics drug classes Notes: 01/30/2025 1. Refill percocet 7.5/325mg TID 2. Refer patient to NS.- waiting to reschedule appt. 3. Follow up in2 months 4. Refill tizanidine 4mg TID 5. benzo letter to Mee Agrawal A.P.R.N. (sent 01/30) 01/30/2025 Screen Unexpected(-)Sent for Definitive,?? * Procedures: Chelsi SMITH ENCOUNTER AND OVERSIGHT: Consult Performed By: Ignacio (CERTIFIED PERSONAL FINANCE COUNSELOR EMERGENCY MEDICINE PHYSICIAN-BC-RAY)Marlena 02/04/2025 07:20:57 PM >. c ollaborated treatment plan with Tianna Tamayo M.D., supervising physician who was present in office during consultation. * Follow Up: 2 Months * * Electronically signed by Ervin Pierre (CERTIFIED PERSONAL FINANCE COUNSELOR EMERGENCY MEDICINE PHYSICIAN-BC-RAY) on 02/22/2025 at 08:51 PM CDT Sign off status: Completed true * Provider: Tianna Tamayo II, M.D. Date: 01/30/2025 Generated for Bacilio anna/Sajan/Maudeitting on: 0 03/14/2025 08:44 AM CDT History and Physical Notes * [...] Denies saddle anesthesia IMAGING HISTORY: 11/01/2017 MRI CERVI ALEXYS - Stable posterior disc osteophyte complex at the C4/C5 level creating no new central spinal canal stenosis. Very little interval change when compared to the prior study.04/21/2018 MRI LUMBAR - Multilevel spondylitic changes, greatest at the L5-S1 level, where there is far left lateral components of a left asymmetric disc bulge producing [id number] left neuroforaminal stenosis and subarticular recess narrowing. Far left lateral component encroaches upon and may abut or contact the exiting left L5 nerve root PHYSICAL/AQUA THERAPY/DME/OT HER HISTORY: Physical Therapy- 2019 with no relief Aqua Therapy- At [facility] 1994 which helped after her stroke 01/30/2025 No therapies reported pt denies PERTINENT SURGICAL [...] benzodiazepine Discharge from Previous Clinic URINE DRUG TESTIN02/01/2024 Screen Ex pected 03/27/2024 Screen Expected 05/29/2024 Screen Expected 07/24/2024 Screen Expected 09/26/2024 Screen Expected Definitive Expected 11/20/2024 Screen Expected 01/30/2025 Screen Unexpected(-)Sent for Definitive, MONITORING: Morphine Equivalent (MME): 34 JOHNATHAN reviewed today and appropriate TESTING/RISK ASSESSMENTS ORT Score/Result: 23( OCD, Bipolar, Depression, Family history of substance abuse, Personal history of substance abuse) TODAYS PAIN EVALUATION MEDICATION FOLLOW UP: The patient is currently prescribed Oxycodone 7.5/325mg TID, which provides 65% relief of pain symptoms for 2 hours. The last dose was taken 2-3 days Denies side effects CURRENT PAIN SYMPTOMS: Location of Worst Pain:: Low Back Pain Frequency:: constant, fluctuating, always Pain Description:: aching, b urning, cramping, sharp, stabbing, numb, tingling Average Pain Score VAS:: 10 Pain Exacerbation:: my life feel like de ad Pain Alleviation:: laying down ADL/Quality of Life Interference:: house work,pet care,, Everything PROCEDURAL FOLLOW UP: Examination Category Sub-Category Detail Notes Category Not [...] leads removed, tip intact. Sterile dressing applied Nurse/Food Assembler: José Miguel(MA-Ray)Meli 01/30/2025 1:29:48 PM > Cervical Spine/Neck Vertebral spine tenderness: [...]
--- OUTSIDE RECORDS SUMMARY | 2025-02-01 02:13 | XMS_ITS | Encounter Summary ---
Author Organization Healthcare Address [address] [place] [address] Care Team Providers Care Shingle Inspector Name Role Phone Pcp, No Primary Care Provider Unavailabl e Reason for Visit * Reason Comments Psychiatric Evaluation Encounter Details Date Type Department Care Team (Latest Contact Info) Description 02/01/2025 2:13 AM EDT - 02/01/2025 3:04 PM EDT Hospital Encounter [facility] [address] [place] [address] Lc Childs MD [address] [place] [address] Unspecified mood (affective) disorder (CMS/HCC) (Primary Dx) Discharge Disposition: Home or Self Care Social History Tobacco Use Types Packs/Day Years Used Date Smoking Tobacco: Never Smokeless Tobacco: Never Tobacco Cessation:Counseling Given: Not Answered Alcohol Use Standard Drinks/Week Comments Not Currently 0 (1 standard drink = 0.6 oz pur e alcohol) Comments Unknown Sex and Gender Information Value Date Recorded Sex Assigned at Not on file Legal Sex Female 7:49 PM EDT Gender Identity Not on file Sexual Orientation Not on file documented as of this encounter Last Filed Vital Signs Vital Sign Reading Time Taken Comments Blood Pressure 131/81 02/01/2025 2:01 AM EDT Pulse 94 02/01/2025 2:01 AM EDT Temperature 36.8 C (98.2 F) 02/01/2025 2:01 AM EDT Respiratory Rate 18 02/01/2025 2:11 AM EDT Oxygen Saturation 92% 02/01/2025 2:01 AM EDT Inhaled Oxygen Concentration - - Weight 59 kg (130 lb) 02/01/2025 2:11 AM EDT Height 165.1 cm (5' 5 ) 02/01/2025 2:11 AM EDT Body Mass Index 21.63 02/01/2025 2:11 AM EDT documented in this encounter Functional Status * Calculated C-SSRS Risk Score (Lifetime/Recent) Answer Date of Assessment Author Low Risk 02/01/2025 2:20 AM EDT Tessa Callaway RN * Question Answer Date of Assessment Author 1. Wish to be (Past 1 Month) Yes 025 2:20 AM EDT Craig Callaway RN 2. Non-Specific Active Suici jose manuel Thoughts (Past 1 Month) No 02/01/2025 2:20 AM EDT Craig Callaway RN 6. Suicidal Behavior (Lifetime) No 2:20 AM EDT Craig Callaway RN documented as of this encounter Medications at Time of Discharge buPROPion XL (Wellbutrin XL) 300 MG 24 hr tablet Take 1 tablet by mouth daily. 01/19/2025 diazePAM (Valium) 5 MG tablet Take 1 tablet by mouth 2 times a day. 01/26/2025 fenofibrate (Tricor) 145 MG tablet Take 1 tablet by mouth daily. 10/13/2024 hydroCHLOROthiazi de 12.5 MG PO tablet Take 1 tablet by mouth daily. 01/19/2025 levothyroxine (Synthroid, Levoxyl) 50 MCG tablet Take 1 tablet by mouth daily. 01/01/2025 losartan (Cozaar) 25 MG tablet Take 1 tablet by mouth daily. 01/01/2025 oxyCODONE-acetami nophen (Percocet) 7.5-325 MG tablet Take 1 tablet by mouth 3 times a day. 01/30/2025 venlafaxine XR (Effexor-XR) 150 MG 24 hr capsule Take 1 capsule by mouth daily. 01/19/2025 tiZANidine (Zanaflex) 4 MG tablet Take 1 tablet by mouth every 8 hours as needed for muscle spasms. documented as of this encounter Miscellaneous Notes * ED Notes - Danielle Gonzáles RN - 02/01/2025 2:57 PM EDT Belongings and AV instructions reviewed; pt verbalized understanding and agreement. Will be transported via Lyft. Danielle Gonzáles RN 02/01/25 1458 * Carley Serrano - Danielle Gonzáles RN - 02/01/2025 2:48 PM EDT Images from the original note were not included. [address] Treating Mood Disorders Depression and bipolar disorder are two common mood disorders. Bipolar disorder is also called manic depression. These illnesses are often treated with medicines and therapy. Your health care provider can tell you more about treatments that can help you. A hospital or mental health clinic can also p rovide help. Mood disorders affect both you and your family. Support and resources for family members are important in the long-term management of these illnesses. Treatments for depression Depression causes you to feel sad, worthless, helpless, or hopeless. You may lose interest in things you used to enjoy. Treatment includes medicines and talk therapy. Antidepressant medicines change levels of brain chemicals to help you feel better. It's important to use only the medicine and dose prescribed for you. Don't take someone else's medicine. Don't share your prescription with others. Don?t stop medicines suddenly. Medicines usually need to be stopped over a period of time. This is to prevent symptoms from getting worse. It is also to protect you from possibly dangerous withdrawaleffects. If you believe that your medicine isn't working, talk with your provider. You may need a different medicine or a combination of medicines. Talk therapy is speaking with a trained counselor about your thoughts. Most people with depression do best with both medicine and talk therapy. Virtual mental health counseling, or telehealth care, may also be a good option for people who prefer not to have in-person therapy. Your health care provider may suggest electroconvulsive therapy (ECT) if these treatments don't work. This uses electric impulses to ease depression. There are different types of depression. Treatment depends on the type of depression you have and how severe it is. In some cases, treatment may be short- term (6 months or less). In other cases, you may need medicines on a long-term basis. Treatments for bipolar disorder People with bipolar disorder have intense mood swings. They move between deep sadness and rem-se-izqvwnu highs. Bipolar disorder is a serious, complex, chronic illness. Like diabetes or heart disease, it needs to be managed for the rest of your life. This condition is treated with medicines such aslithium. They help even out moods and prevent mood swings. Regular blood tests make sure that your medicine is at a safe level that still works. Just as for depression, don?t stop these medicines suddenly. Medicines usually need to be stopped over a period of time. This is to prevent symptoms from getting worse. It is also to protect you frompossibly dangerous withdrawal effects. Talk therapy can also help. Talking to a trained counselor about feelings and relationships can help you handle tough times. Counselors can help identify triggers. They can give you ways to cope withyour symptoms. For people who don't like in-person counseling, telehealth services, which provide virtual mental health care, may be a good option. To learn more The sources below can tell you more. They can also give names of clinics near you that offer treatment and free screenings. ? Depression and Bipolar Support [place] at www.dbsalliance.org or 356-968-9802 ? International Foundation for Research and Education on Depression at www.ifred.org ? National [place] on Mental Illness (SHAILESH) at www.shailesh.org or 824-159-HQUO (154-834-6995) ? National [place] of Mental Health at www.nimh.nih.gov or 409-151-2865 ? National Suicide Prevention Lifeline at https://Clear[place] Internationalline.org or call 610 or 621-348-JNDV (566-052-3896). This resource is open 24 hours a day, 7 days a week. They can provide crisis interventionright away. They can also give you information on local resources. It is free and confidential. Last Reviewed Date: 2024 00:00:00 ?? 4167-4423 [employer]. All rights reserved. This information is not intended as a substitute for professional medical care. Always follow your healthcare professional's instructions. * Clinician Note - Madeline Song - 02/01/2025 2:48 PM EDT SW met with patient. Patient states she is feeling better. Pt states she is able to get into her home. Pt gave permission for SW to speak with her . SW made multiple attempts to reach patientshusband and left voicemail requesting call back but has not been able to speak with . Pt will need transportation assistance home. SW verified patients income does not exceed 300% of the federal poverty guideline. Pt was transported via Lyft. * Discharge Summary - Aolna De Guzman APRN, DNP - 02/01/2025 2:32 PM EDT [facility] Psych Discharge Summary Hospitalization Admit Date/Time: 02/01/2025 2:13 AM Admitting Attending: Discharge Date: 02/01/2025 Discharge Attending Physician: Lc Childs MD PCP name and Address: Pcp, [place] [id number] I received sign-out and accepted care of this patient from the departing providers Daquan Akbar 0700 hour. Please see the primary providers' note for complete elements of the history, physicalexam, and ED course. Chief Concern, Brief History of Present Illness, and Hospital Course Per review of initial [facility] note: 64 y.o. female presenting from [facility] with complaints of a manic episode. Patient reports that she was diagnosed with bipolar disorder in 1994and has tried multiple medications trials and that none of them have worked. She states she currently takes wellbutrin and venlafaxine and that this regimen has worked for her but states When I takeantibiotics they make me manic states she is currently on azithromycin for respiratory infection. She reports that her started nagging her and that she started breaking dishes to feel better. She states she likes the feeling of broken glass. She reported that during this argument sheexperienced suicidal thoughts as well as homicidal thoughts towards her . She reports that since then those feelings have resolved and she is no longer experiencing SI/HI. She describes her manic episodes as throwing a fit denies any other symptoms. She feels as though she is currently manic. She is calm, cooperative, logical, linear, and goal oriented during interview. She states she called 911 to keep from harming herself or her . She is uninterested in a medication change. Labs and chest xray at [facility] were unremarkable. Endorses smoking marijuana. On day of discharge, pt is calm, pleasant, and answers questions appropriately. She denies SI, HI, and AVH. Reports she got upset last night due to her antibiotics and experienced a brief manic episode and broke dishes. She is currently managed by Mee Blair APRN at [facility] and reports that she is going to find a therapist near [place]. No medications changes at this time. SW unable to contact her spouse but she is able to access her home (see SW note). Discharge plan of care discussed with Lc Childs MD. Medication List . buPROPion XL 300 MG 24 hr tablet Commonly known as: Wellbutrin XL Take 1 tablet by mouth daily. diazePAM 5 MG tablet Commonly known as: Valium Take 1 tablet by mouth 2 times a day. fenofibrate 145 MG tablet Commonly known as: Tricor Take 1 tablet by mouth daily. hydroCHLOROthiazide 12.5 MG tablet Commonly known as: HYDRODiuril Take 1 tablet by mouth daily. levothyroxine 50 MCG tablet Commonly known as: Synthroid, Levoxyl Take 1 tablet by mouth daily. losartan 25 MG tablet Commonly known as: Cozaar Take 1 tablet by mouth daily. oxyCODONE-acetaminophen 7.5-325 MG tablet Commonly known as: Percocet Take 1 tablet by mouth 3 times a day. tiZANidine 4 MG tablet Commonly known as: Zanaflex Take 1 tablet by mouth every 8 hours as needed for muscle spasms. venlafaxine XR 150 MG 24 hr capsule Commonly known as: Effexor-XR Take 1 capsule by mouth daily. Discharge Diagnosis Final diagnoses: [F39] Unspecified mood (affective) disorder (CMS/[facility]) Post Discharge Instructions Follow-Up / Post Discharge Instructions You are being discharged to Home. You should keep all scheduled follow up outpatient appointments for continued care. We strongly encourage you to keep all future appointments and advised to take all prescribed medications as instructed. You should abstain from all mood-altering substances except those prescribed by a licensed land surveyor. Your primary supports should monitor you for evidence of substance use and should alert your outpatient provider if use is suspected or confirmed. Your safety plan includes instructions to return to [facility] or the nearest ER if you become suicidal, homicidal, manic, psychotic, or develop any other urgent/emergent symptoms, or to call [phone]. Veterans call [phone] then Press 1. You voiced an understanding of the safety plan., but are welcome to ask questions at any time Disposition Discharge Provider Care Team: JESSE Hernandez [[id number]] Are they the primary team?: Yes [1] Follow-Ups: Follow up with Marco Bob MD (Emergency Medicine) Outpatient Follow-Up No future appointments. Test Results At Discharge Recent Results (from the past 24 hours) HIV 1 & 2 Antibody/Antigen Screen Collection Time: 02/01/25 1:28 PM Result Value Ref Range HIV 1 & 2 Antibody/Antigen Screen Non Reactive Non Reactive Hepatitis C Antibody with Reflex to HCV Quant PCR - [facility] Collection Time: 02/01/25 2:04 PM Result Value Ref Range Hepatitis C Antibody Negative Negative Pertinent Mental Status At Time of Discharge: Thoughts are linear and organized. She denies SI, HI,and AVH. Calculated C-SSRS Risk Score (Lifetime/Recent): Low Risk Discharge Disposition/Condition Disposition: Home Condition: Stable (s/sx potential problems absent or manageable) I spent >30 minutes of patient care and instruction time in preparation for this discharge. Cosigned by Lc Childs MD at 02/01/2025 3:15 PM EDT Associated attestation - Lc Childs MD - 02/01/2025 3:15 PM EDT The patient was seen only by Advanced Practice Provider (SANKET). * ED Provider Notes - Desiree Simon APRN - 02/01/2025 1:59 AM EDT [facility] Psych Initial Eval Chief Concern & History Of Present Illness Diamond Damon is a 64 y.o. female presenting from [facility] with complaints of a manic episode. Patient reports that she was diagnosed with bipolar disorder in 1994 and hastried multiple medications trials and that none of them have worked. She states she currently takeswellbutrin and venlafaxine and that this regimen has worked for her but states When I take antibiotics they make me manic states she is currently on azithromycin for respiratory infection. She reports that her started nagging her and that she started breaking dishes to feel better. She states she likes the feeling of broken glass. She reported that during this argument she experienced suicidal thoughts as well as homicidal thoughts towards her . She reports that since then those feelings have resolved and she is no longer experiencing SI/HI. She describes her manic episodes as throwing a fit denies any other symptoms. She feels as though she is currently manic. She is calm, cooperative, logical, linear, and goal oriented during interview. She states she called 911to keep from harming herself or her . She is uninterested in a medication change. Labs and chest xray at [facility] were unremarkable. Endorses smoking marijuana. Past Medical and Surgical History not significant other than Past Medical History[1] Allergies Patient has no allergy information on record. Medications Current Medications[2] Review of Systems Psychiatric/Behavioral: Positive for behavioral problems. All other systems reviewed and are negative. Psych Review of Symptoms: Depressive Symptoms: Severe temper tantrums and irritable. Disruptive and Conduct Symptoms: Easily annoyed. Pertinent Physical Exam findings: 64 year old female in no physical distress. Physical Exam Vitals and nursing note reviewed. Constitutional: General: She is not in acute distress. Appearance: She is well-developed. HENT: Head: Normocephalic and atraumatic. Eyes: Conjunctiva/sclera: Conjunctivae normal. Cardiovascular: Rate and Rhythm: Normal rate and regular rhythm. Heart sounds: No murmur heard. Pulmonary: Effort: Pulmonary effort is normal. No respiratory distress. Breath sounds: Normal breath sounds. Abdominal: Palpations: Abdomen is soft. Tenderness: There is no abdominal tenderness. Musculoskeletal: General: No swelling. Cervical back: Neck supple. Skin: General: Skin is warm and dry. Capillary Refill: Capillary refill takes less than 2 seconds. Neurological: Mental Status: She is alert. Psychiatric: Mood and Affect: Mood normal. First Recorded Vitals ED Triage Vitals Temp Heart Rate Resp BP 06/05/25 0201 06/05/25 0201 06/05/25 0211 06/05/25 0201 36.8 ??C (98.2 ??F) 94 18 131/81 SpO2 Temp src Heart Rate Source Patient Position 02/01/25200 -- -- 02/01/25210 92 % Sitting BP Location FiO2 (%) 02/01/25210 -- Left arm Labs No results found for this or any previous visit (from the past 24 hours). PSYCH Hx: Diagnoses: bipolar disorder Trauma hx: does not disclose MENTAL STATUS EXAM: Mental Status Evaluation: Appearance: age appropriate Behavior: normal Speech: normal pitch and normal volume Mood: normal Affect: normal Thought Process: normal Thought Content: Delusions: No Hallucinations: No Homicidal: No Obsessions: No Suicidal: No Plan/Implementation related to SI: Denies SI Sensorium: person, place, time/date, and situation Cognition: grossly intact Insight: fair Judgment: fair Problem based Plan and Disposition: Unspecified mood disorder -Admit to empath and observe in safe, supportive, and therapeutic environment. -Patient is not interested in medication changes and reports that she has also already taken her medications for the night. -SW to obtain collateral from . Patient did give permission for us to speak with him. -Reassess mood/symptoms, plan for dispo. Recommend revaluation within 4-6 hours. Desiree Simon APRN 02/01/25 0237 [1] Past Medical History: Diagnosis Date Cardiac arrest heart has stopped twice in her past r/t OD attempt High cholesterol Hypoxic brain injury (CMS/HCC) Post concussion syndrome Seizure (CMS/HCC) [2] Current Facility-Administered Medications Medication Dose Route Frequency Provider Last Rate Last Admin acetaminophen (Tylenol) tablet 650 mg 650 mg Oral q6h PRN Desiree Simon APRN aluminum & magnesium hydroxide-simethicone (Mylanta) 200-200-20 MG/5ML oral suspension 10 mL 10mL Oral q6h PRN Desiree Simon APRN hydrOXYzine pamoate (Vistaril) capsule 50 mg 50 mg Oral q6h PRN Desiree Simon APRN magnesium hydroxide (Milk of Magnesia) 400 MG/5ML suspension 10 mL 10 mL Oral Daily PRN Desiree Simon, REDUCTION FURNACE OPERATOR HELPER No current outpatient medications on file. Desiree Simon APRN 02/01/25 0239 * ED Notes - Craig Callaway RN - 02/01/2025 1:59 AM EDT Pt states she is here because she has manic s/s r/t the antibiotics she is on for adult croup. Pt state her and her partner got into argument when she got upset and broke all the dishes in the house but it was in a controlled manner, she called the police on herself because she felt as if she may hurt her partner if she stayed there. Pt went to hospital and then came to [facility], she denies SI/HI/AVH at ED and here at [facility]. Pt states she doesn't get good sleep. Pt has many allergies and med sensitivities. Pt is calm and cooperative in triage, Pt has completed her doxycyline and has a few moredays of Zithromax. Pt states she took her nighttime meds already. Pt gave permission to speak with her . Pt states she has had a hypoxic brain injury and mini seizures in her past. Pt denies drinking, smoking but she does smoke THC at times for her pain. Craig Callaway RN 02/01/25 0210 documented in this encounter Plan of Treatment Not on file documented as of this encounter Procedures Procedure Name Priority Date/Time Associated Diagnosis Comments HEPATITIS B SURFACE ANTIGEN - EMPATH STAT 02/01/2025 2:56 PM EDT HEPATITIS C ANTIBODY WITH REFLEX TO HCV QUANT PCR - EMPATH STAT 02/01/2025 2:04 PM EDT HIV 1/2 ANTIBODY/ANTIGEN SCREEN W/REFLEX TO HIV 1/2 ANTIBODY DIFFERENTIATION STAT 02/01/2025 1:28 PM EDT HIV 1/2 ANTIBODY/ANTIGEN SCREEN WITH REFLEX TO HIV I/II DIFFERENTIATION STAT 02/01/2025 1:28 PM EDT documented in this encounter Results * Hepatitis B Surface Antigen - [facility] (02/01/2025 2:56 PM EDT) Hepatitis B Surf Antigen Negative Negative 02/01/2025 2:[address] [facility] Blood Venous blood specimen / Unknown 02/01/2025 10:04 AM EDT Desiree [employer] REDUCTION FURNACE OPERATOR HELPER LAB BLOOD ORDERABLES Final Re sult Performing Organization Address [facility]/ZIP Co de Phone Number [facility] [address] [place] [address] * Hepatitis C Antibody with Reflex to HCV Quant PCR - [facility] (02/01/2025 2:04 PM EDT) Hepatitis C Antibody Negative Negative 02/01/2025 2:[address] [facility] Blood Venous blood specimen / Unknown 02/01/2025 10:04 AM EDT [facility]UCTION FURNACE OPERATOR HELPER LAB BLOOD ORDERABLES Final Re sult Performing Organization Address [facility] Co de Phone Number [facility] [address] [place] [address] * HIV 1 & 2 Antibody/Antigen Screen (02/01/2025 1:28 PM EDT) HIV 1 & 2 Antibody/Antigen Screen Non Reactive Non Reactive 02/01/2025 1:28 PM EDT [facility] Comment:Screening for HIV 1 & 2 antibodies, and P24 antigen is NONREACTIVE. No confirmatory testing is required. Blood Venous blood specimen / Unknown 02/01/2025 10:04 AM EDT [facility] REDUCTION FURNACE OPERATOR HELPER LAB BLOOD ORDERABLES Final Re sult Performing Organization Address City/[facility]/ZIP Co de Phone Number [facility] [address] [place] [address] documented in this encounter Visit Diagnoses Diagnosis Unspecified mood (affective) disorder (CMS/HCC)- Primary Unspecified mood (affective) disorder (CMS/HCC) documented in this encounter Administered Medications Inactive Administered Medications - up to 3 most recent administrations Medication Order MAR Action Action Date Dose Rate Site aluminum & magnesium hydroxide-simethicone (Mylanta) 200-200-20 MG/5ML oral suspension 10 mL 10 mL, Oral, Every 6 hours PRN, Starting on Wed02/01/25 at 0213, Until Wed02/01/25 at 1705, Routine, indigestion, heartburnIndications:UGI Symptoms azithromycin (Zithromax) tablet 250 mg 250 mg, Oral, Daily, First dose on Wed02/01/25 at 0900, Until Discontinued, Routine Given 02/01/2025 8:08 AM EDT 250 mg buPROPion XL (Wellbutrin XL) 24 hr tablet 300 mg 300 mg, Oral, Once, 1 dose, On Wed02/01/25 at 1315, STAT Given 02/01/2025 1:19 PM EDT 300 mg diazePAM (Valium) tablet 5 mg 5 mg, Oral, Every 8 hours PRN, Starting on Wed02/01/25 at 1305, Until Kandice 02/01/25 at 1705, STAT, anxiety hydrOXYzine pamoate (Vistaril) capsule 50 mg 50 mg, Oral, Every 6 hours PRN, Starting on Wed02/01/25 at 0213, Until Kandice 02/01/25 at 1705, Routine, anxietyIndications:Anxiety levothyroxine (Synthroid, Levoxyl) tablet 50 mcg 50 mcg, Oral, Every morning, First dose on Wed02/01/25 at 0600, Until Discontinued, Routine Given 02/01/2025 5:57 AM EDT 50 mcg magnesium hydroxide (Milk of Magnesia) 400 MG/5ML suspension 10 mL 10 mL, Oral, Daily PRN, Starting on Wed02/01/25 at 0213, Until Wed02/01/25 at 1705, Routine, constipationIndications:Constipati on venlafaxine XR (Effexor-XR) 24 hr capsule 150 mg 150 mg, Oral, Daily with breakfast, First dose on Wed02/01/25 at 1400, Until Discontinued, STAT Given 02/01/2025 1:18 PM EDT 150 mg documented in this encounter Active and Recently Administered Medications Times are shown in EDT. Scheduled Medication Order 01/30/2025 01/31/2025 02/01/2025 azithromycin (Zithromax) tablet 250 mg 250 mg, Oral, Daily, First dose on Kandice 02/01/25 at 0900, Until Discontinued, Routine 0808 (Given - Provid er: Danielle Gonzáles RN) buPROPion XL (Wellbutrin XL) 24 hr tablet 300 mg (COMPLETED) 300 mg, Oral, Once, 1 dose, On Kandice 02/01/25 at 1315, STAT 1319 (Given - Provid er: Danielle Gonzáles RN) levothyroxine (Synthroid, Levoxyl) tablet 50 mcg 50 mcg, Oral, Every morning, First dose on Kandice 02/01/25 at 0600, Until Discontinued, Routine 0557 (Given - Provid er: Craig Callaway RN) venlafaxine XR (Effexor-XR) 24 hr capsule 150 mg 150 mg, Oral, Daily with breakfast, First dose on Kandice 02/01/25 at 1400, Until Discontinued, STAT 1318 (Given - Provid er: Danielle Gonzáles RN) PRN Medication Order 01/30/2025 01/31/2025 02/01/2025 aluminum & magnesium hydroxide-simethicone (Mylanta) 200-200-20 MG/5ML oral suspension 10 mL 10 mL, Oral, Every 6 hours PRN, Starting on Kandice 02/01/25 at 0213, Until Kandice 02/01/25 at 1705, Routine, indigestion, heartburn diazePAM (Valium) tablet 5 mg 5 mg, Oral, Every 8 hours PRN, Starting on Kandice 02/01/25 at 1305, Until Kandice 02/01/25 at 1705, STAT, anxiety hydrOXYzine pamoate (Vistaril) capsule 50 mg 50 mg, Oral, Every 6 hours PRN, Starting on Kandice 02/01/25 at 0213, Until Kandice 02/01/25 at 1705, Routine, anxiety magnesium hydroxide (Milk of Magnesia) 400 MG/5ML suspension 10 mL 10 mL, Oral, Daily PRN, Starting on Kandice 02/01/25 at 0213, Until Kandice 02/01/25 at 1705, Routine, constipation documented in this encounter Care Teams Shingle Inspector Relationship Specialty Start Date End Date Pcp, No [address] [place] [address] PCP - General Family Medicine 02/01/25 documented as of this encounter
--- OUTSIDE RECORDS SUMMARY | 2025-03-14 09:44 | XMS_ITS | Encounter Summary ---
Author Organization [employer] ([place], [place], [place], [place]) Address [address] [place] [address] Care Team Providers Care Property Condition Assessor Name Role Phone Jaelyn Renteria APRN Primary Care Provider [phone] Vanessa Green MD Unavailable Encounter Details Date Type Department Care Team (Late st Contact Info) Description 01/05/2019 Transcribed Document [facility] [place] [facility] Medicine [address] [place] [address] ProviderLexi MD [address] [place] [id number] Social History Tobacco Use Types Packs/Day Years Used Date Smoking Tobacco: Never Assessed Comments Unknown Sex and Gender Information Value Date Recorded Sex Assigned at Not on file Legal Sex Female 2:44 PM CDT Gender Identity Not on file Sexual Orientation Not on file documented as of this encounter Miscellaneous Notes * Cerner Conversion Note - Lexi Vickers MD - 01/05/2019 2:37 PM CDT Patient Education Materials Follows: Gastritis, Adult Gastritis is soreness and puffiness (inflammation) of the lining of the stomach. If you do not get help, gastritis can cause bleeding and sores (ulcers) in the stomach. HOME CARE ??? Only take medicine as told by your doctor. ??? If you were given antibiotic medicines, take them as told. Finish the medicines even if you start to feel better. ??? Drink enough fluids to keep your pee (urine) clear or pale yellow. ??? Avoid foods and drinks that make your problems worse. Foods you may want to avoid include: ? Caffeine or alcohol. ? Chocolate. ? Mint. ? Garlic and onions. ? Spicy foods. ? [place] fruits, including oranges, rhianna, or limes. ? Food containing tomatoes, including sauce, chili, salsa, and pizza. ? Fried and fatty foods. ??? Eat small meals throughout the day instead of large meals. GET HELP RIGHT AWAY IF: ??? You have black or dark red poop (stools). ??? You throw up (vomit) blood. It may look like coffee grounds. ??? You cannot keep fluids down. ??? Your belly (abdominal) pain gets worse. ??? You have a fever. ??? You do not feel better after 1 week. ??? You have any other questions or concerns. MAKE SURE YOU: ??? Understand these instructions. ??? Will watch your condition. ??? Will get help right away if you are not doing well or get worse. This information is not intended to replace advice given to you by your health care provider. Make sure you discuss any questions you have with your health care provider. Document Released: 02/01/2009 Document Revised: 11/07/2012 Document Reviewed: 05/09/2016 [employer] Interactive Patient Education ? 2017 [employer] Esophagogastroduodenoscopy, Care After Introduction Refer to this sheet in the next few weeks. These instructions provide you with information about caring for yourself after your procedure. Your health care provider may also give you more specific instructions. Your treatment has been planned according to current medical practices, but problems sometimes occur. Call your health care provider if you have any problems or questions after your procedure. What can I expect after the procedure? After the procedure, it is common to have:??? A sore throat. ??? Nausea. ??? Bloating. ??? Dizziness. ??? Fatigue. Follow these instructions at home: ??? Do noteat or drink anything until the numbing medicine (local anesthetic) has worn off and your gag reflex has returned. You will know that the local anesthetic has worn off when you can swallow comfortably. ??? Do notdrive for 24 hours if you received a medicine to help you relax (sedative). ??? If your health care provider took a tissue sample for testing during the procedure, make sure to get your test results. This is your responsibility. Ask your health care provider or the department performing the test when your results will be ready. ??? Keep all follow-up visits as told by your health care provider. This is important. Contact a health care provider if: ??? You cannot stop coughing. ??? You are not urinating. ??? You are urinating less than usual. Get help right away if: ??? You have trouble swallowing. ??? You cannot eat or drink. ??? You have throat or chest pain that gets worse. ??? You are dizzy or light-headed. ??? You faint. ??? You have nausea or vomiting. ??? You have chills. ??? You have a fever. ??? You have severe abdominal pain. ??? You have black, tarry, or bloody stools. This information is not intended to replace advice given to you by your health care provider. Make sure you discuss any questions you have with your health care provider. Document Released: 08/02/2013 Document Revised: 01/21/2017 Document Reviewed: 07/09/2016 ? 2017 [employer] Hemorrhoids Introduction Hemorrhoids are swollen veins in and around the rectum or anus. Hemorrhoids can cause pain, itching, or bleeding. Most of the time, they do not cause serious problems. They usually get better with diet changes, lifestyle changes, and other home treatments. Follow these instructions at home: Eating and drinking??? Eat foods that have fiber, such as whole grains, beans, nuts, fruits, and vegetables. Ask your doctor about taking products that have added fiber (fiber?supplements). ??? Drink enough fluid to keep your pee (urine) clear or pale yellow. For Pain and Swelling??? Take a warm-water bath (sitz bath) for 20 minutes to ease pain. Do this 3?4 times a day. ??? If directed, put ice on the painful area. It may be helpful to use ice between your warm baths.? Put ice in a plastic bag. ? Place a towel between your skin and the bag. ? Leave the ice on for 20 minutes, 2?3 times a day. General instructions??? Take [id number] and prescription medicines only as told by your doctor.? Medicated creams and medicines that are inserted into the anus (suppositories) may be used or applied as told. ??? Exercise often. ??? Go to the bathroom when you have the urge to poop (to have a bowel movement). Do not wait. ??? Avoid pushing too hard (straining) when you poop. ??? Keep the butt area dry and clean. Use wet toilet paper or moist paper towels. ??? Do notsit on the toilet for a long time. Contact a doctor if: ??? You have any of these:? Pain and swelling that do not get better with treatment or medicine. ? Bleeding that will not stop. ? Trouble pooping or you cannot poop. ? Pain or swelling outside the area of the hemorrhoids. This information is not intended to replace advice given to you by your health care provider. Make sure you discuss any questions you have with your health care provider. Document Released: 05/25/2009 Document Revised: 01/21/2017 Document Reviewed: 04/29/2016 ? 2017 [employer] Colonoscopy, Adult, Care After This sheet gives you information about how to care for yourself after your procedure. Your doctor may also give you more specific instructions. If you have problems or questions, call your doctor. Follow these instructions at home: General instructions ??? For the first 24 hours after the procedure: ? Do notdrive or use machinery. ? Do notsign important documents. ? Do notdrink alcohol. ? Do your daily activities more slowly than normal. ? Eat foods that are soft and easy to digest. ? Rest often. ??? Take uqad-fex-[id number] or prescription medicines only as told by your doctor. ??? It is up to you to get the results of your procedure. Ask your doctor, or the department performing the procedure, when your results will be ready. To help cramping and bloating:??? Try walking around. ??? Put heat on your belly (abdomen) as told by your doctor. Use a heat source that your doctor recommends, such as a moist heat pack or a heating pad. ? Put a towel between your skin and the heat source. ? Leave the heat on for 20?30 minutes. ? Remove the heat if your skin turns bright red. This is especially important if you cannot feel pain, heat, or cold. You can get burned. Eating and drinking ??? Drink enough fluid to keep your pee (urine) clear or pale yellow. ??? Return to your normal diet as told by your doctor. Avoid heavy or fried foods that are hard to digest. ??? Avoid drinking alcohol for as long as told by your doctor. Contact a doctor if: ??? You have blood in your poop (stool) 2?3 days after the procedure. Get help right away if: ??? You have more than a small amount of blood in your poop. ??? You see large clumps of tissue (blood clots) in your poop. ??? Your belly is swollen. ??? You feel sick to your stomach (nauseous). ??? You throw up (vomit). ??? You have a fever. ??? You have belly pain that gets worse, and medicine does not help your pain. This information is not intended to replace advice given to you by your health care provider. Make sure you discuss any questions you have with your health care provider. Document Released: 09/18/2011 Document Revised: 05/10/2017 Document Reviewed: 05/10/2017 [employer] Interactive Patient Education ? 2017 [employer] documented in this encounter Plan of Treatment Not on file documented as of this encounter Visit Diagnoses Not on filedocumented in this encounter Care Teams Property Condition Assessor Relationship Specialty Start Date End Date Jaelyn Renteria APRN [address] [place] [address] PCP - General Family Medicine 10/06/22 Vanessa Green MD [address] [place] [phone] Salon Shampoo Assistant Rheumatology 10/06/22 documented as of this encounter
--- OUTSIDE RECORDS SUMMARY | 2025-03-14 09:44 | XMS_ITS | Encounter Summary ---
Author Organization [employer] ([place], [place], [place], [place]) Address [address] [place] [address] Care Team Providers Care Mixing And Molding Machine Operator Name Role Phone Jaelyn Renteria APRN Primary Care Provider [phone] Vanessa Green MD Unavailable Encounter Details Date Type Department Care Team (Late st Contact Info) Description 01/05/2019 Transcribed Document [facility] [place] Family Medicine [facility] [place] [address] ProviderLexi MD [address] [place] [address] Social History Tobacco Use Types Packs/Day Years Used Date Smoking Tobacco: Never Assessed Comments Unknown Sex and Gender Information Value Date Recorded Sex Assigned at Not on file Legal Sex Female 2:44 PM CDT Gender Identity Not on file Sexual Orientation Not on file documented as of this encounter Miscellaneous Notes * Cerner Conversion Note - Lexi ProviderMD - 01/05/2019 1:30 PM CDT TENISHA Endo PACU Summary Primary Physician: GILBERT OLSON MD-[facility] Finalized Date/Time: 01/05/19 14:45:28 Pt. Name: LILI DAMON D.O.B./Sex: 1960 Female Med Rec #: [id number] Physician: GILBERT OLSON MD-[facility] Financial #: [id number] Pt. Type: O Room/Bed: [facility]/ Admit/Disch: 01/05/19 12:03:00 - Institution: [facility] [place] Endo PACU Case Times Entry 1 In PACU I 01/05/19 14:00:00 Ready for PACU 01/05/19 14:36:00 Discharge Discharge from PACU 01/05/19 14:45:00 I SJE Endo PACU Case Times Audit 01/05/19 14:45:24 Hop Weigher: [id number] Modifier: [id number] <+> 1 Discharge from PACU I 01/05/19 14:43:14 Hop Weigher: [id number] Modifier: [id number] <+> 1 Ready for PACU Discharge Finalized By: Alee Rose RN Document Signatures Signed By: Alee Rose RN 01/05/19 14:45 Electronically signed by Eugenie [facility] Conversion Shipwright Cerner at 12/14/2022 11:51 AM CDT documented in this encounter Plan of Treatment Not on file documented as of this encounter Visit Diagnoses Not on filedocumented in this encounter Care Teams Mixing And Molding Machine Operator Relationship Specialty Start Date End Date Jaelyn Renteria, KEENA [address] [place] [address] PCP - General Family Medicine 10/06/22 Vanessa Green MD [address] [place] [phone] Draw Frame Runner Rheumatology 10/06/22 documented as of this encounter
--- OUTSIDE RECORDS SUMMARY | 2025-03-14 09:44 | XMS_ITS | Encounter Summary ---
Author Organization [employer] ([place], [place], [place], [place]) Address [address] [place] [address] Care Team Providers Care Gun Stocker Name Role Phone Jaelyn Renteria APRN Primary Care Provider [phone] Vanessa Green MD Unavailable Encounter Details Date Type Department Care Team (Late st Contact Info) Description 01/05/2019 Transcribed Document [facility] Family Medicine [address] [place] [address] ProviderLexi MD [address] [place] [address] Social History Tobacco Use Types Packs/Day Years Used Date Smoking Tobacco: Never Assessed Comments Unknown Sex and Gender Information Value Date Recorded Sex Assigned at Not on file Legal Sex Female 2:44 PM CDT Gender Identity Not on file Sexual Orientation Not on file documented as of this encounter Miscellaneous Notes * Cerner Conversion Note - Lexi ProviderMD - 01/05/2019 2:37 PM CDT [address] [address] LILI DAMON :1960 Visit Time:01/05/2019 What to do next Your Diagnosis Chronic GERD Abnormal finding on radiology exam Screening for colon cancer Instructions From Your Care Team Diet after Discharge: Resume usual diet as tolerated, Do not drink any alcoholic beverages, Drink at least 8-10 glasses of water per day Fluid Restriction after Discharge: _ Activity after Discharge: _, Rest and relax today, No strenuous activity Lifting Restrictions: _ Weight Bearing: _ Bedrest: _ Driving after Discharge: Do not drive for 24 hours May Return to Work/School: Showering/Bathing: May shower, _ Notify Provider of: Any questions or concerns Wound/Incision Care after Discharge: _, _ Medical Equipment for Home Use: Home Health Services: Community Services: Follow-Up Appointments Follow Up with GILBERT OLSON MD-[facility] When Within [address] Garcia's office will call you to make follow up appointment.New prescription: OMEPRAZOLE, take 30 minutes before breakfast on empty stomach Where: [address] [facility] [address] [place] [id number]- Medications What How Much When Instructions Next Dose omeprazole (omeprazole 40 mg oral delayed release capsule) 1 Capsule(s) Oral Every Day Duration: 30 Day(s) Refills: 4 before a meal Printed Prescription buPROPion (Wellbutrin) 150 Milligram(s) Oral Every Day diazepam (Valium) 5 Milligram(s) Oral lamotrigine (Lamictal) 100 Milligram(s) Oral Two Times A Day levothyroxine 75 Microgram(s) Oral Every Day valACYclovir (Valtrex 1 g oral tablet) 1 Tablet(s) Oral Every Day venlafaxine (Effexor) 150 Milligram(s) Oral Every Day Take your medications faithfully. Do NOT skip medication. Do NOT stop taking medications without the direction of a physician. Carry a list of your medications with you at all times, and take this medication list with you to your first follow up visit. Report any side effects. Avoid herbal remedies unless discussed with your physician. As part of your treatment plan, your physician may have prescribed a limited course of a controlled substance. This medication may be given to help people with moderate or severe pain or for other medical conditions, but there are risks involved with treatment. Common side effects may include nausea, constipation, drowsiness, sweating, itching, dry mouth, and rash. More serious side effects may include cognitive and motor impairment, like problems with thinking, concentrating, alertness, and movement (e.g. slowed reflexes), and driving and operating heavy machinery can be dangerous. It is important for you to talk to your physician if you have these side effects or questions. These controlled substances can produce physical dependence and be habit-forming if taken for an extended period of time, which means that the body has gotten used to them and may experience withdrawal symptoms if they are abruptly stopped. Withdrawal symptoms can include runny nose, sweating, goose bumps, diarrhea, abdominal cramping, rapid heartbeat, difficulty sleeping, and nervousness. Please dispose of unused and medications per pharmacy guidance. Education Materials Gastritis, Adult Gastritis is soreness and puffiness [...] Garlic and onions. ? Spicy foods. ? [place] fruits, including oranges, rhianna, or limes. ? [...] 02/01/2009 Document Revised: 11/07/2012 Document Reviewed: 05/09/2016 [employer] Patient Education ?? 2017 [employer] Esophagogastroduodenoscopy, Care After Introduction Refer to [...] After the procedure, it is common to have: ??? A sore throat. ??? Nausea. ??? Bloating. [...] 08/02/2013 Document Revised: 01/21/2017 Document Reviewed: 07/09/2016 ?? 2017 Elsevier Hemorrhoids Introduction Hemorrhoids are swollen veins in and around the rectum or anus. Hemorrhoids can cause pain, itching, or bleeding. Most of the time, they do not cause serious problems. They usually get better with diet changes, lifestyle changes, and other home treatments. Follow these instructions at home: Eating and drinking ??? Eat foods that have fiber, such as whole grains, beans, nuts, fruits, and vegetables. Ask your doctor about taking products that have added fiber (fiber supplements). ??? Drink enough fluid to keep your pee (urine) clear or pale yellow. For Pain and Swelling ??? Take a warm-water bath (sitz bath) for 20 minutes to ease pain. Do this 3???4 times a day. ??? If directed, put ice on the painful area. It may be helpful to use ice between your warm baths.? Put ice in a plastic bag. ? Place a towel between your skin and the bag. ? Leave the ice on for 20 minutes, 2???3 times a day. General instructions ??? Take czqr-jom-tbojwse and prescription medicines only as told by [...] doctor if: ??? You have any of these: ? Pain and swelling that do not get [...] 05/25/2009 Document Revised: 01/21/2017 Document Reviewed: 04/29/2016 ?? 2017 [employer] Colonoscopy, Adult, Care After This [...] to digest. ? Rest often. ??? Take uuxm-rmp-mchmtnc or prescription medicines only as told by your doctor. ??? It is up to you to get the results of your procedure. Ask your doctor, or the department performing the procedure, when your results will be ready. To help cramping and bloating: ??? Try walking around. ??? Put heat on your belly (abdomen) as told by your doctor. Use a heat source that your doctor recommends, such as a moist heat pack or a heating pad. ? Put a towel between your skin and the heat source. ? Leave the heat on for 20???30 minutes. ? Remove the heat if your [...] You have blood in your poop (stool) 2???3 days after the procedure. Get help right [...] 09/18/2011 Document Revised: 05/10/2017 Document Reviewed: 05/10/2017 [employer] Patient Education ?? 2017 [employer]. omeprazole (oh MEP ra zol) FIRST Omeprazole, Omeprazole + SyrSpend SF Annika, PriLOSEC, PriLOSEC OTC What is the most important information I should know about omeprazole? Omeprazole can cause kidney problems. Tell your doctor if you are urinating less than usual, or if you have blood in your urine. Diarrhea may be a sign of a new infection. Call your doctor if you have diarrhea that is watery or has blood in it. Omeprazole may cause new or worsening symptoms of lupus. Tell your doctor if you have joint pain and a skin rash on your cheeks or arms that worsens in sunlight. You may be more likely to have a broken bone while taking this medicine longterm or more than once per day. What is omeprazole? Omeprazole is a proton pump inhibitor that decreases the amount of acid produced in the stomach. Omeprazole is used to treat symptoms of gastroesophageal reflux disease (GERD) and other conditions caused by excess stomach acid. Omeprazole is also used to promote healing of erosive esophagitis (damage to your esophagus caused by stomach acid). Omeprazole may also be given together with antibiotics to treat gastric ulcer caused by infection with Helicobacter pylori (H. pylori). Snhp-vbu-rqptlah (OTC) omeprazole is used to help control heartburn that occurs 2 or more days per week. This medicine not for immediate relief of heartburn symptoms. OTC omeprazole must be taken on a regular basis for 14 days in a row. Omeprazole may also be used for purposes not listed in this medication guide. What should I discuss with my healthcare provider before taking omeprazole? Heartburn can mimic early symptoms of a heart attack. Get emergency medical help if you have chest pain that spreads to your jaw or shoulder and you feel anxious or light-headed. You should not use omeprazole if you are allergic to it, or if: ? you are also allergic to medicines like omeprazole, such as esomeprazole, lansoprazole, pantoprazole, rabeprazole, Nexium, Prevacid, Protonix, and others; or ?? you also take HIV medication that contains rilpivirine (such as Complera, Edurant, Odefsey, Juluca). Ask a doctor or pharmacist if it is safe for you to use omeprazole if you have other medical conditions, especially: ? trouble or pain with swallowing; ?? bloody or black stools, vomit that looks like blood or coffee grounds; ?? heartburn that has lasted for over 3 months; ?? frequent chest pain, heartburn with wheezing; ?? unexplained weight loss; ?? nausea or vomiting, stomach pain; ?? liver disease; ?? low levels of magnesium in your blood; or ?? osteoporosis or low bone mineral density (osteopenia). You may be more likely to have a broken bone in your hip, wrist, or spine while taking a proton pump inhibitor long-term or more than once per day. Talk with your doctor about ways to keep your bones healthy. Ask a doctor before using this medicine if you are or breast-feeding. Do not give this medicine to a child without medical advice. How should I take omeprazole? Follow all directions on your prescription label and read all medication guides or instruction sheets. Use the medicine exactly as directed. Use Prilosec OTC (efac-wcv-vhlbzuc) exactly as directed on the label, or as prescribed by your doctor. Read and carefully follow any Instructions for Use provided with your medicine. Ask your doctor or pharmacist if you do not understand these instructions. Shake the oral suspension (liquid) before you measure a dose. Use the dosing syringe provided, or use a medicine dose-measuring device (not a kitchen spoon). If you cannot swallow a capsule whole, open it and sprinkle the medicine into a spoonful of applesauce. Swallow the mixture right away without chewing. Do not save it for later use. You must dissolve omeprazole powder in a small amount of water. This mixture can either be swallowed or given through a nasogastric (NG) feeding tube using a catheter-tipped syringe. OTC omeprazole should be taken for only 14 days in a row. Allow at least 4 months to pass before you start a new 14-day course of treatment. Use this medicine for the full prescribed length of time, even if your symptoms quickly improve. Call your doctor if your symptoms do not improve, or if they get worse. Some conditions are treated with a combination of omeprazole and antibiotics. Use all medications as directed. This medicine can affect the results of certain medical tests. Tell any doctor who treats you that you are using omeprazole. Store at room temperature away from moisture and heat. What happens if I miss a dose? Take the medicine as soon as you can, but skip the missed dose if it is almost time for your next dose. Do not take two doses at one time. What happens if I overdose? Seek emergency medical attention or call the Poison Help line at . What should I avoid while taking omeprazole? This medicine can cause diarrhea, which may be a sign of a new infection. If you have diarrhea that is watery or bloody, call your doctor before using anti-diarrhea medicine. What are the possible side effects of omeprazole? Get emergency medical help if you have signs of an allergic reaction: hives; difficulty breathing; swelling of your face, lips, tongue, or throat. Stop using omeprazole and call your doctor at once if you have: ? severe stomach pain, diarrhea that is watery or bloody; ?? new or unusual pain in your wrist, thigh, hip, or back; ?? seizure (convulsions); ?? kidney problems--little or no urination, blood in your urine, swelling, rapid weight gain; ?? low magnesium--dizziness, fast or irregular heart rate, tremors (shaking) or jerking muscle movements, feeling jittery, muscle cramps, muscle spasms in your hands and feet, cough or choking feeling; or ?? new or worsening symptoms of lupus--joint pain, and a skin rash on your cheeks or arms that worsens in sunlight. Taking omeprazole long-term may cause you to develop stomach growths called fundic gland polyps. Talk with your doctor about this risk. If you use omeprazole for longer than 3 years, you could develop a vitamin B-12 deficiency. Talk to your doctor about how to manage this condition if you develop it. Common side effects may include: ? stomach pain, gas; ?? nausea, vomiting, diarrhea; or ?? headache. This is not a complete list of side effects and others may occur. Call your doctor for medical advice about side effects. You may report side effects to FDA at 9-037-YBG-1131. What other drugs will affect omeprazole? Sometimes it is not safe to use certain medications at the same time. Some drugs can affect your blood levels of other drugs you take, which may increase side effects or make the medications less effective. Tell your doctor about all your current medicines. Many drugs can affect omeprazole, especially: ? clopidogrel; ?? methotrexate; ?? [place]'s wort; or ?? an antibiotic--amoxicillin, clarithromycin, rifampin. This list is not complete and many other drugs may affect omeprazole. This includes prescription and asbj-nhb-emdhbot medicines, vitamins, and herbal products. Not all possible drug interactions are listed here. Where can I get more information? Your pharmacist can provide more information about omeprazole. Remember, keep this and all other medicines out of the reach of children, never share your medicines with others, and use this medication only for the indication prescribed. Every effort has been made to ensure that the information provided by [employer]. ('[employer]') is accurate, up-to-date, and complete, but no guarantee is made to that effect. Drug information contained herein may be time sensitive. [employer] information has been compiled for use by healthcare practitioners and consumers in the [place] and therefore [employer] does not warrant that uses outside of the [place] are appropriate, unless specifically indicated otherwise. [employer] drug information does not endorse drugs, diagnose patients or recommend therapy. [employer] drug information is an informational resource designed to assist licensed healthcare practitioners in caring for their patients and/or to serve consumers viewing this service as a supplement to, and not a substitute for, the expertise, skill, knowledge and judgment of healthcare practitioners. The absence of a warning for a given drug or drug combination in no way should be construed to indicate that the drug or drug combination is safe, effective or appropriate for any given patient. [employer] does not assume any responsibility for any aspect of healthcare administered with the aid of information [employer] provides. The information contained herein is not intended to cover all possible uses, directions, precautions, warnings, drug interactions, allergic reactions, or adverse effects. If you have questions about the drugs you are taking, check with your doctor, nurse or pharmacist. Copyright 6475-0777 [employer]. Version: 19.01. Revision Date: 02/21/2018. Emergency Awareness and Preventative Care STROKE is an EMERGENCY Every Minute Counts Act FAST and Check for these signs: FACE Does the face look uneven? ARM Does one arm drift down? SPEECH Does their speech sound strange? TIME Call at any sign of stroke Stroke Risk Factors Atrial Fibrillation (irregular heartbeat) Diabetes Family history of stroke Heart Disease Heavy alcohol use High Blood Pressure High Cholesterol Physical inactivity and obesity Smoking Cigarette Smoking The facts are clear, cigarette smoking will shorten your life. Smoking can cause many illnesses along the way. As a healthcare provider, we recommend that you stop smoking. Assistance with quitting is available by contacting 9-693-JFSZ-NOW. This is a free resource providing counseling, support, and referral. Or you may contact your personal physician. [employer] Suicide Prevention Lifeline: The National Suicide Prevention Lifeline is a national network of local crisis centers that provides free and confidential emotional support to people in suicidal crisis or emotional distress 24 hours a day, 7 days a week. Don't Wait! Stop a Heart Attack Before it Starts What is a heart attack? A heart attack is damage or to a part of the heart from severely decreased or lack of blood flow to the heart. Over time, arteries can become narrow from the buildup of fat and cholesterol, which is called plaque. The plaque can rupture causing a blood clot to form. When the blood clot forms, the artery can become severely narrowed or completely blocked, causing a heart attack. Heart attack is the leading cause of in the [place]. 85% of muscle damage occurs within the first 2 hours. Delay in the recognition of heart attack symptoms increases the chances of . Know the early symptoms of a heart attack: Nausea Feeling of fullness in chest Jaw Pain Pain that travels down one or both arms Fatigue/being tired Anxiety Back Pain Chest pressure, squeezing, or discomfort Shortness of breath Sweating, or a cold sweat Feeling of impending doom There are unusual signs of a heart attack, too! Women, the elderly, and diabetics may present with atypical symptoms: Fainting/dizziness Weakness Confusion Risk Factors for a Heart Attack Some heart disease risk factors, such as age and family history, cannot be changed. Others, like smoking and lack of exercise, can be changed. Smoking High Cholesterol High Blood Pressure Family History Obesity Age Gender (Males are at higher risk) Lack of Exercise Diabetes Diet Stress Excessive Alcohol Intake If you or someone you know is experiencing the signs and symptoms of a heart attack, DON???T DELAY. Call immediately and seek help. If someone collapses, perform CPR! Do not attempt to drive if you are having symptoms of heart attack. Hands-Only CPR Why Hands-Only CPR? Hands-Only CPR has been shown to be as effective as conventional CPR for cardiac arrests that occur outside of a hospital. Survival depends on immediately receiving CPR from someone nearby. How do you perform Hands-Only CPR? There are two easy steps: Call if you see a teen or adult collapse Push hard and fast in the center of the chest at a beat of 100 beats per minute. Save a life! 4 WAYS TO GET AHEAD OF SEPSIS SEPSIS is a MEDICAL EMERGENCY. Time matters! Infections put you and your family at risk for a life-threatening condition called sepsis. Sepsis is the body's extreme response to an infection. It is life-threatening, and without timely treatment, sepsis can rapidly lead to tissue damage, organ failure, and . Sepsis happens when an infection you already have-in your skin, lungs, urinary tract or somewhere else-triggers a chain reaction throughout your body. 1 PREVENT INFECTIONS Take good care of chronic conditions. Talk to your doctor about getting the recommended vaccines. 2 PRACTICE GOOD HYGIENE Wash your hands frequently. Keep cuts or open sores clean and covered until they are healed. 3 KNOW THE SYMPTOMS Confusion or disorientation Shortness of breath High heart rate Fever, shivering, or feeling very cold Extreme pain or discomfort Clammy or sweaty skin 4 ACT FAST Get medical care IMMEDIATELY if you suspect sepsis or if you have an infection that is not getting better or is getting worse. To learn more about sepsis and how to prevent infections, visit www.cdc.gov/sepsis. Patient Portal Reminder: Be sure to sign up for the [employer] patient portal, which gives you 22/03 access to your medical information ??? including these discharge instructions ??? using your computer, smartphone, or tablet. Just go to [employer] to get started. Questions? Call . Test Results Laboratory or Other Results This Visit (last charted value for your 01/05/2019 visit) No Laboratory or Other Results This Visit Patient Name:JACYLILI I have received this information and was given the opportunity to ask questions. Patient/Interactive Media Project Manager Name: Patient/Interactive Media Project Manager Signature: Relationship to Patient: Clinician/Hospital Interactive Media Project Manager Signature: Date: documented in this encounter Plan of Treatment Not on file documented as of this encounter Visit Diagnoses Not on filedocumented in this encounter Care Teams Gun Stocker Relationship Specialty Start Date End Date Jaelyn Renteria APRN [address] [place] [address] PCP - General Family Medicine 10/06/22 Vanessa Green MD [address] [place] [phone] Hall Director Rheumatology 10/06/22 documented as of this encounter
--- OUTSIDE RECORDS SUMMARY | 2025-03-14 09:44 | XMS_ITS | Encounter Summary ---
Author Organization [employer] ([place], [place], [place], [place]) Address [address] [place] [address] Care Team Providers Care Outpatient Case Manager Name Role Phone Jaelyn Renteria APRN Primary Care Provider [phone] Vanessa Green MD Unavailable Encounter Details Date Type Department Care Team (Late st Contact Info) Description 01/05/2019 Transcribed Document [facility] Family Medicine [facility] [place] [address] ProviderLexi MD [address] [place] [address] Social History Tobacco Use Types Packs/Day Years Used Date Smoking Tobacco: Never Assessed Comments Unknown Sex and Gender Information Value Date Recorded Sex Assigned at Not on file Legal Sex Female 2:44 PM CDT Gender Identity Not on file Sexual Orientation Not on file documented as of this encounter Miscellaneous Notes * Cerner Conversion Note - Lexi ProviderMD - 01/05/2019 1:00 PM CDT [facility] PreOp Summary Primary Physician: GILBERT OLSON MD-[facility] Finalized Date/Time: 01/05/19 13:14:29 Pt. Name: LILI DAMONO.B./Sex: 1960 Female Med Rec #: [id number] Physician: GILBERT OLSON MD-[facility] Financial #: [id number] Pt. Type: O Room/Bed: [facility]/ Admit/Disch: 01/05/19 12:03:00 - Institution: [facility] PreOp Case Times Entry 1 In Preop 01/05/19 12:58:00 Ready for Holding n/a Room Patient Ready for 01/05/19 13:14:00 Surgery Patient Out of Preop 01/05/19 13:14:00 Patient Out of n/a Holding Room [facility] PreOp Case Times Audit 01/05/19 13:14:28 Vender: BICKNEA Modifier: BICKNEA <+> 1 Patient Out of Preop <+> 1 Patient Ready for Surgery Finalized By: Albina Dove RN Document Signatures Signed By: Albina Dove RN 01/05/19 13:14 Electronically signed by [facility] Conversion Junior Graphic Designer Cerner at 12/14/2022 11:52 AM CDT documented in this encounter Plan of Treatment Not on file documented as of this encounter Visit Diagnoses Not on filedocumented in this encounter Care Teams Outpatient Case Manager Relationship Specialty Start Date End Date Evakelley Jaelyn, CABLE MAKER [address] [place] [address] PCP - General Family Medicine 10/06/22 Vanessa Green MD [address] [place] [phone] Display Decorator Rheumatology 10/06/22 documented as of this encounter
--- OUTSIDE RECORDS SUMMARY | 2025-03-14 09:44 | XMS_ITS | Encounter Summary ---
Author Organization [employer] ([place], [place], [place], [place]) Address [address] [place] [address] Care Team Providers Care Ply Cutter Name Role Phone Jaelyn Renteria APRN Primary Care Provider [phone] Vanessa Green MD Unavailable Encounter Details Date Type Department Care Team (Late st Contact Info) Description 01/05/2019 Transcribed Document [facility] Family Medicine [address] [place] [address] ProviderLexi MD [address] [place] [address] Social History Tobacco Use Types Packs/Day Years Used Date Smoking Tobacco: Never Assessed Comments Unknown Sex and Gender Information Value Date Recorded Sex Assigned at Not on file Legal Sex Female 2:44 PM CDT Gender Identity Not on file Sexual Orientation Not on file documented as of this encounter Miscellaneous Notes * Cerner Conversion Note - Lexi ProviderMD - 01/05/2019 12:58 PM CDT Pre Procedure Adult Entered On: 01/05/2019 13:02 EDT Performed On: 01/05/2019 12:58 EDT by Albina oDve RN Height and Weight, Clinical Dosing Height Source : Stated Height Entry Format : [place] Height, Feet : 5 ft(Converted to: 152 cm, 60 Inch) Height, Inches : 6 Inch(Converted to: 0 ft 6 Inch, 15.24 cm) Clinical Height : 167.64 cm Weight Source : Standing scale Weight Entry Format : [place] Clinical Dosing Weight : 66.36 kg Weight, Pounds : 146 lb Body Surface Area (BSA) : 1.75 m2 Body Mass Index : 23.6 kg/m2 [place] Body Weight : 59 kg Albina Dove RN - 01/05/2019 12:58 EDT Health Histories Smoking Status : Former smoker, quit more than 30 days ago Smokeless Tobacco Status : Never Albina Dove RN - 01/05/2019 12:58 EDT Social History (As Of: 01/05/2019 13:02:25 EDT) Tobacco: Use in Last 12 Months: No. Smoking Status Former smoker. Used Tobacco, but Quit Yes. Last Used: 2 years ago. (Last Updated: 05/18/2014 22:06:58 EDT by BUD SHERMAN, JOB) Alcohol: Use in Last 12 Months: No. (Last Updated: 05/18/2014 22:07:02 EDT by BUD SHREMAN, JOB) Substance Abuse: Drug Use Hx: No. Use in Last 12 Months: No. (Last Updated: 05/18/2014 22:07:11 EDT by BUD SHERMAN, JOB) Nutrition/Health: Caffeine intake amount: 1-2 per day. (Last Updated: 08/06/2016 08:03:47 EST by Albina Dove RN) Infectious Disease History Infectious Disease History : None Fever/Chills Last 48 Hours : No Travel To Regions with Travel Advisories : No Travel Outside [place] Within Last 30 Days : No Contact With Traveler to Advisory Region : No Tuberculosis Symptoms : Persistent Cough > 3 weeks Albina Dove RN - 01/05/2019 12:58 EDT Anesthesia/Transfusion History Family History of Anesthesia Reaction : No prior transfusion(s) Transfusion History : Prior anesthesia without reaction Family History of Anesthesia Reaction : None Albina Dove RN - 01/05/2019 12:58 EDT Functional Assessment Living Situation : Home Patient Lives With : Alone Current Home Treatments : CPAP Albina Dove RN - 01/05/2019 12:58 EDT Psychosocial History Do You Have a History of the Following? : Anxiety, Bipolar Disorder, Depression Currently in Unsafe Situation : No Tried to Harm Yourself in the Past? : No Thoughts of Harming/Killing Yourself : No Albina Dove RN - 01/05/2019 12:58 EDT Advance Directive Patient has Advance Directive *Q : Yes, Advance Directive not with the patient Advance Directive Type : Living will Copy Advance Directive Verified/on Chart : No Albina Dove RN - 01/05/2019 12:58 EDT Teaching/Learning Assessment Barriers To Learning : None evident Individuals Taught : Patient Highest Level of Education : Some college Baseline Knowledge of Topic : Good Learning Style Preferences Patient : Verbal explanation Albina Dove RN - 01/05/2019 12:58 EDT General Info Preferred Name : valentin/jorge Arrived From : Home Mode of Arrival on Unit : Ambulatory Legal Guardian : Friend Support Person/Patient Shovel Loader Operator : Yes Support Person/Pt Rep Name : maria teresa Support Person/Pt Rep Contact Information : [phone] Want Family/Rep/Phys Notified of Admit : No Emergency Contact #1 : na Emergency Contact #1 Phone Number : bryon Emergency Contact #1 Relationship : rhonda Emergency Contact #2 : a Emergency Contact #2 Phone Number : jeffrey Emergency Contact #2 Relationship : na Information Obtained From : Patient Primary Language : Bangladeshi Preferred Communication Mode : Verbal Communication Barrier : None Objects to Sharing Info w Family : No Albina Dove RN - 01/05/2019 12:58 EDT Sleep Apnea Risk Assmt BiPAP/CPAP Ordered for Home Use : Yes Hx of Obstructive Sleep Apnea Diagnosis : Yes BiPAP/CPAP Used at Home : Yes Age over 50 Years Old : Yes Gender Male : No Albina Dove RN - 01/05/2019 12:58 EDT Jarocho Scale Jar[place]o Sensory Perception : No impairment Jar[place]o Moisture : Rarely moist Jraocho Activity : Walks frequently Jarocho Mobility : No limitation Jarocho Nutrition : Adequate Jarocho Friction and Shear : No apparent problem Jarocho Score : 22 Albina Dove RN - 01/05/2019 12:58 EDT Pain Assessment Pain Assessment : Initial assessment Pain Scale Goal : 8 Pain Scale Used : 0-10 Scale Location : Back, lower, Neck Albina Dove RN - 01/05/2019 12:58 EDT Fall Risk Scales ABCs Fall Injury Risk Identification : Bones ABC Fall Injury Risk : Moderate to high injury risk NEGRON Hx Falls Immediate/Within 3 Months : No Negron Secondary Diagnosis : No NEGRON Use of Ambulatory Aid : None NEGRON IV Therapy or IV Access : Yes Negron Gait/Transferring : Impaired Negron Mental Status : Oriented to own ability NEGRON Fall Scale Risk Level : 25-45 Medium Risk [place] Fall Interventions : Adequate lighting, Assistive devices within reach, Bed in low position, Call device within reach, Fall prevention handout/education per facility policy, Frequent orientation to call device, Frequent orientation to surroundings, Hourly comfort/safety rounds, Non-slip footwear Albina Dove RN - 01/05/2019 12:58 EDT Valuables and Belongings Valuables and Belongings : Clothing Clothing : Common streetwear Clothing Disposition : Bedside, With family Albina Dove RN - 01/05/2019 12:58 EDT Pain Scale Intensity : 8 Albina Dove RN - 01/05/2019 12:58 EDT Image 4 - Images currently included in the form version of this document have not been included in the text rendition version of the form. documented in this encounter Plan of Treatment Not on file documented as of this encounter Visit Diagnoses Not on filedocumented in this encounter Care Teams Ply Cutter Relationship Specialty Start Date End Date Jaelyn Renteria, KEENA [address] [place] [address] PCP - General Family Medicine 10/06/22 Vanessa Green MD [address] [place] [phone] Activities Coordinator Rheumatology 10/06/22 documented as of this encounter
--- OUTSIDE RECORDS SUMMARY | 2025-03-14 09:44 | XMS_ITS | Clinical Summary ---
Author Organization [employer] ([place], [place], [place], [place]) Address [address] [place] [address] Care Team Providers Care Ditch Tender Name Role Phone Jaelyn Renteria APRN Primary Care Provider [phone] Vanessa Green MD Unavailable Allergies Active Allergy Reactions Criticality Noted Date Comments Bacitracin-Polymyxin B 11/11/2021 Other reaction(s): Unknown - Low Severity Bee Venom Protein (Honey Bee) Shortness Of Breath High 02/27/2017 Cariprazine Anxiety Low 08/24/2018 Celecoxib 11/11/2021 Other reaction(s): Unknown - Low Severity Chlorpromazine 03/09/2020 Other reaction(s): Unknown - Low Severity Chocolate Flavor Hives High 06/19/2018 Codeine Anaphylaxis,Itchi ng,Rash,Shortness Of Breath High 12/16/2012 Other reaction(s): Headache And rash Cyclobenzaprine 03/09/2020 Other reaction(s): Unknown - Low Severity Desvenlafaxine Anxiety Low 02/28/2019 Diphenhydramine Anxiety Low 12/16/2012 Eszopiclone 11/11/2021 Other reaction(s): Unknown - Low Severity Fentanyl 03/09/2020 Other reaction(s): Unknown - Low Severity Fluoxetine Hcl Anxiety Low 03/09/2020 Gabapentin 10/07/2022 Other reaction(s): Unknown (See Comments) Hydrocodone-Acetaminoph en 03/09/2020 Other reaction(s): Unknown - Low Severity Hydromorphone 06/25/2022 Other reaction(s): Unknown - High Severity Ibuprofen Medium 09/13/2019 Other reaction(s): Other (See Comments) 'my lips get tingly and numb Lurasidone Hcl 03/09/2020 Other reaction(s): Unknown - Low Severity Meclizine 03/27/2022 Other reaction(s): Other (See Comments) Restless arm and leg Meloxicam 03/09/2020 Other reaction(s): Unknown - Low Severity Meperidine 11/11/2021 Other reaction(s): Unknown - Low Severity Methadone Anxiety Low 03/09/2020 Miconazole Itching,Rash High 10/07/2022 Morphine Anaphylaxis,Itchi ng,Shortness Of Breath High 12/16/2012 Other reaction(s): Confusion, Flushing, Hallucinations Wnpxtyfu-Ljqxtdkmix-Ehs ymyxin Itching High 10/07/2022 Other Anxiety Low 11/27/2020 Antihistamines Peanut 10/07/2022 1Replaced free text allergy Peanut Oil Shortness Of Breath High 03/06/2013 Pramoxine-Allantoin Rash Low 12/16/2012 Prednisone Low 04/14/2018 Other reaction(s): Other (See Comments) Induces kai Quetiapine 10/14/2021 Other reaction(s): Mental Status Change Topiramate Anxiety Low 03/09/2020 Tramadol Hcl Anxiety Low 03/09/2020 Ziprasidone Hcl 03/09/2020 Other reaction(s): Unknown - Low Severity Zolpidem 03/09/2020 Other reaction(s): Unknown - Low Severity Medications acyclovir (ZOVIRAX) 400 MG tablet Take by mouth. 09/22/19 Active buPROPion (WELLBUTRIN XL) 150 MG 24 hr tablet Take 150 mg by mouth every morning. 09/22/19 Active diazePAM (VALIUM) 5 MG tablet Take 10 mg by mouth 2 (two) times daily. 09/21/19 Active oxyCODONE-acet aminophen (PERCOCET) 7.5-325 mg per tablet Take 1 tablet by mouth 3 (three) times daily. 09/09/19 Active valACYclovir (VALTREX) 1000 MG tablet Take 1 tablet by mouth daily. 05/11/20 Active venlafaxine (EFFEXOR-XR) 37.5 MG 24 hr capsule Take 1 capsule by mouth daily. 06/19/20 Active levothyroxine (SYNTHROID, LEVOTHROID) 75 MCG tablet Take 75 mcg by mouth Every morning on an empty stomach. Active diclofenac 1 % Gel Apply topically 4 (four) times daily. Activ e EPINEPHrine (EPIPEN JR) 0.15 mg/0.3 mL injection Inject 0.15 mg intramuscularly as needed for Anaphylaxis. Active multivitamin per tablet Take 1 tablet by mouth daily. Active lidocaine (LIDODERM) 5 % patch APPLY 1 PATCH TO AFFECTED AREA FOR 12 HOURS IN A 24 HOUR PERIOD. 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 Muscle spasticity 08/02/2023 Social History Tobacco Use Types Packs/Day Years Used Date Smoking Tobacco: Never Smokeless Tobacco: Never Tobacco Cessation:Counseling Given: Not Answered Alcohol Use Standard Drinks/Week Comments Yes 0 (1 standard drink = 0.6 oz pur e alcohol) occasionally Food Insecurity Answer Date Recorded Food run out past 12 months Not on file 08/30 Food did not last past 12 months Not on file 09/11/2023 Employment Answer Date Recorded Help finding and keeping a job Not on file 0 09/11/2023 Family and Community Support Answer Clarence e Recorded Help with Day to Day Activities Not on file 09/11/2023 Feeling Lonely or Isolated Not on file 09/11 Educational Attainment Answer Date Pj rded Speak language other than Guyanese at home Not on file 09/11/2023 Want help with school or training Not on file 09/11/2023 Substance Use Answer Date Recorded Used prescription meds for non-medical reasons N ot on file 09/11/2023 Used illegal drugs past 12 months Not on file 09/11/2023 Comments No Sex and Gender Information Value Date Recorded Sex Assigned at Not on file Legal Sex Female 2:44 PM CDT Gender Identity Not on file Sexual Orientation Not on file Last Filed Vital Signs Vital Sign Reading Time Taken Comments Blood Pressure 133/90 05/19/2023 8:14 PM EDT Pulse 82 05/19/2023 8:14 PM EDT Temperature 36.9 C (98.4 F) 05/19/2023 8:14 PM EDT Respiratory Rate 14 05/19/2023 8:14 PM EDT Oxygen Saturation 98% 05/19/2023 8:14 PM EDT Inhaled Oxygen Concentration - - Weight 68 kg (150 lb) 05/19/2023 8:14 PM EDT Height 165.1 cm (5' 5 ) 05/19/2023 8:14 PM EDT Body Mass Index 24.96 05/19/2023 8:14 PM EDT Plan of Treatment Health Maintenance Due Date Last Done Comments CT Colonography 1960 Colonoscopy 1960 Colorectal Cancer Screening 1960 DXA SCAN 1960 FOBT/FIT 1960 Fit-DNA (Cologuard) 1960 Sigmoidoscopy 1960 Depression Screening (12+) 1971 HIV Screening 12/03/1974 Hepatitis C Screening 12/03/1977 Pap Smear 12/03/1980 Breast Cancer Screening 1999 Lipid Panel 12/03/2004 Shingles Vaccine (Zoster) (1 of 2) 12/03/2009 Pneumococcal 50+ years (2 of 2 - PCV) 06/12/2016, 01/02/2015 COVID-19 VACCINE ( - 2023- season) 2024 Tobacco Cessation Counseling and Screening (12+) 05/19/2024 05/19/2023 Falls Risk Screening 08/30/2024 Influenza Vaccine (#1) 2025 DTAP/TDAP/TD VACCINES (2 - Td or Tdap) 03/06/2027 Respiratory Syncytial Virus (RSV) Adult or (1 - 1-dose 75+ series) 12/03/2034 [place] [address] [place]ICAID [place] Care Teams Ditch Tender Relationship Specialty Start Date End Date Jaelyn Renteria, COSMETIC DENTIST [address] [place] [address] PCP - General Family Medicine 10/06/22 Vanessa Green MD [address] [place] [phone] Professor Of Poultry Science Rheumatology 10/06/22
--- OUTSIDE RECORDS SUMMARY | 2025-03-14 09:45 | XMS_ITS | Encounter Summary ---
Author Organization [employer] ([place], [place], [place], [place]) Address [address] [place] [address] Care Team Providers Care Superintendent Gas Distribution Name Role Phone Jaelyn Renteria APRN Primary Care Provider Vanessa Green MD Unavailable Encounter Details Date Type Department Care Team (Late st Contact Info) Description 04/27/[address] [facility] Family Medicine [facility] [place] [address] ProviderLexi MD [address] [place] [address] Social History Tobacco Use Types Packs/Day Years Used Date Smoking Tobacco: Never Assessed Comments Unknown Sex and Gender Information Value Date Recorded Sex Assigned at Not on file Legal Sex Female 2:44 PM CDT Gender Identity Not on file Sexual Orientation Not on file documented as of this encounter Miscellaneous Notes * Cerner Conversion Note - Lexi Vickers MD - 04/27/2019 9:33 AM CDT Patient: LILI DAMON Age: 58 years Sex: Female : 1960 Associated Diagnoses: None Author: SABINE LUGO II, MD-ANS Procedure Performed: Lumbar Rhizotomy at L4, L5 and Sacral Ala on the left for a total of 3 injection sites. Preoperative Diagnosis: Low back pain secondary to Lumbar Spondylosis Lumbar Facet Disease Postoperative Diagnosis: Same Anesthesia: Local with 10mg PO Valium Complications: none Fluoroscopy: .51 Procedure: The risk and benefits were explained. An informed consent was obtained. The patient was placed in a prone position. Landmarks were identified. A sterile prep was performed. A lidocaine skin wheal was raised over the inferior articulating process of the facet joint(s) at the L4, L5 and Sacral Ala on the left for a total of 3 injection sites. I then used fluoroscopic guidance and directed a 22g Rhizotomy needle into the appropriate locations just adjacent to the facet joints. I then applied sensory and motor stimulation with appropriate responses at less than 0.5 milliamps. I then injected .5ml of 0.5% Ropivicaine diluted with .5ml PF normal saline at each site and performed Rhizotomy at 80 degrees for 90 seconds each site. The patient tolerated the procedure well without complications. documented in this encounter Plan of Treatment Not on file documented as of this encounter Visit Diagnoses Not on filedocumented in this encounter Care Teams Superintendent Gas Distribution Relationship Specialty Start Date End Date Jaelyn Renteria APRN [address] [place] [address] PCP - General Family Medicine 10/06/22 Vanessa Green MD [address] [place] [phone] Registered Dietetic Technician Rheumatology 10/06/22 documented as of this encounter
--- OUTSIDE RECORDS SUMMARY | 2025-03-14 09:45 | XMS_ITS | Referral Summary ---
Author Organization [employer] ([place], [place], [place], [place]) Address [address] [place] [address] Care Team Providers Care Fitting Room Supervisor Name Role Phone Jaelyn Renteria APRN Primary Care Provider [phone] Vanessa Green MD Unavailable Allergies Active Allergy [...] High 12/16/2012 Other reaction(s): Confusion, Flushing, Hallucinations Tsaqtkgw-Wthggovgme-Mki ymyxin Itching High 10/07/2022 Other Anxiety Low [...] Date Pj rded Speak language other than Hebrew at home Not on file 09/11/2023 Want [...] 05/19/2023 8:14 PM EDT Plan of Treatment Not on file Insurance [place] Care Teams Fitting Room Supervisor Relationship Specialty Start Date End Date Myra Jaelyn, EMERY GRINDER [address] [place] [address] PCP - General Family Medicine 10/06/22 Vanessa Green MD [address] [place] [phone] Decorating Instructor Rheumatology 10/06/22
--- OUTSIDE RECORDS SUMMARY | 2025-03-14 09:45 | XMS_ITS | Encounter Summary ---
Author Organization [employer] ([place], [place], [place], [place]) Address [address] [place] [address] Care Team Providers Care Chenille Machine Operator Name Role Phone Jaelyn Renteria APRN Primary Care Provider [phone] Vanessa Green MD Unavailable Encounter Details Date Type Department Care Team (Late st Contact Info) Description 03/10/2019 Transcribed Document [facility] [place] [facility] [place] [address] ProviderLexi MD [address] [place] [address] Social History Tobacco Use Types Packs/Day Years Used Date Smoking Tobacco: Never Assessed Comments Unknown Sex and Gender Information Value Date Recorded Sex Assigned at Not on file Legal Sex Female 2:44 PM CDT Gender Identity Not on file Sexual Orientation Not on file documented as of this encounter Miscellaneous Notes * Cerner Conversion Note - Lexi Vickers MD - 03/10/2019 9:48 AM CDT Patient: LILI DAMON Age: 58 years Sex: Female : 1960 Associated Diagnoses: None Author: SABINE LUGO II, MD-ANS Procedure: Medial Branch Block at L4, L5 and Sacral Ala bilaterally for a total of 6 injection sites. Pre-Procedure Diagnosis: Low back pain secondary to Lumbar Spondylosis Lumbar Facet Disease Post-Procedure Diagnosis: Same Anesthesia: Local (1% Lidocaine) only Complications: none Fluoroscopy: .44 Descriptions of Procedure: Risk and benefits were explained. An informed consent was obtained. The patient was taken to the procedure room and placed in a prone position. The area was prepped and draped in a sterile fashion. Landmarks were identified. A sterile prep was performed. A lidocaine skin wheal was raised over the inferior articulating process of the facet joints at L4, L5 and Sacral Ala bilaterally for a total of 6 injections sites. I then used a 22g 3 1/2 inch spinal needle at each site directed under fluoroscopic guidance into the appropriate location at the inferior articulating process. I then injected 1ml of 0.5% Ropivicaine at each site. The patient tolerated the procedure well and was transported to the post procedure area in stable condition documented in this encounter Plan of Treatment Not on file documented as of this encounter Visit Diagnoses Not on filedocumented in this encounter Care Teams Chenille Machine Operator Relationship Specialty Start Date End Date Jaelyn Renteria, KEENA [address] [place] [address] PCP - General Family Medicine 10/06/22 Vanessa Green MD [address] [place] [phone] Rooming House Inspector Rheumatology 10/06/22 documented as of this encounter
--- OUTSIDE RECORDS SUMMARY | 2025-03-14 09:45 | XMS_ITS | Encounter Summary ---
Author Organization [employer] ([place], [place], [place], [place]) Address [address] [place] [address] Care Team Providers Care Aoc Plans Intelligence Officer Chief Name Role Phone Jaelyn Renteria APRN Primary Care Provider [phone] Vanessa Green MD Unavailable Encounter Details Date Type Department Care Team (Late st Contact Info) Description 01/05/2019 Transcribed Document [facility] [place] [address] ProviderLexi MD [address] [place] [id number] Social History Tobacco Use Types Packs/Day [...] - 01/05/2019 1:30 PM CDT [facility] IntraOp Summary Primary Physician: GILBERT OLSON MD-[facility] Finalized Date/Time: 01/05/19 13:55:28 Pt. Name: LILI DAMON D.O.B./Sex: 1960 Female Med Rec #: [id number] Physician: GILBERT OLSON MD-[facility] Financial #: [id number] Pt. Type: O Room/Bed: [facility] Admit/Disch: 01/05/19 12:03:00 - Institution: [facility] Endo - Case Attendance Entry 1 Entry 2 Entry 3 Case Attendee YOUSIF OLSON YVONNE D., RN STEFFI GONZALEZ MD KAREN, MD-GAE Role Performed Surgeon/Proceduralist, [employer], First Anesthesiologist First Time In 01/05/19 13:22:00 01/05/19 13:22:00 01/05/19 13:22:00 Time Out 01/05/19 13:57:00 01/05/19 13:57:00 01/05/19 13:49:00 Procedure Colonoscopy, Colonoscopy, Colonoscopy, Esophagogastroduodenosco Esophagogastroduodenosco Esophagogastroduodenosco py, Duodenal Biopsy py, Duodenal Biopsy py, Duodenal Biopsy Other Attendee Superficial Wound Closed By: Last Modified By: CORNELIA DODD, RN CORNELIA DODD, RN CONRELIA DODD, RN 01/05/19 13:55:26 01/05/19 13:55:26 01/05/19 13:55:26 Entry 4 Entry 5 Case Attendee CRISTIAN ASHFORD KAREN KIM, ORACLE WMS CONSULTANT Role Performed [employer]p Analytics, First ORACLE WMS CONSULTANT/Nurse Supervisor [employer] Time In 01/05/19 13:22:00 01/05/19 13:49:00 Time Out 01/05/19 13:57:00 01/05/19 13:57:00 Procedure Colonoscopy, Colonoscopy Esophagogastroduodenosco py, Duodenal Biopsy Other Attendee Superficial Wound Closed By: Last Modified By: CORNELIA DODD, RN CORNELIA DODD, RN 01/05/19 13:55:26 01/05/19 13:55:26 [facility] Endo - Case Attendance Audit 01/05/19 13:55:26 Textile Cutting Machine Operator: HERBERT Modifier: HERBERT 1 <+> Time Out 1 <*> Procedure Colonoscopy, Esophagogastroduodenoscopy, Duodenal Biopsy 2 <+> Time Out 2 <*> Procedure Colonoscopy, Esophagogastroduodenoscopy, Duodenal Biopsy 3 <*> Procedure Colonoscopy, Esophagogastroduodenoscopy, Duodenal Biopsy 4 <+> Time Out 4 <*> Procedure Colonoscopy, Esophagogastroduodenoscopy, Duodenal Biopsy 5 <+> Time Out 5 <*> Procedure Colonoscopy 01/05/19 13:52:32 Textile Cutting Machine Operator: HERBERT Modifier: ANDREWMAYD 1 <*> Procedure Duodenal Biopsy 3 <+> Time Out 3 <*> Procedure Colonoscopy, Esophagogastroduodenoscopy, Duodenal Biopsy <+> 5 Case Attendee <+> 5 Role Performed <+> 5 Time In <+> 5 Procedure 01/05/19 13:32:03 Textile Cutting Machine Operator: HERBERT Modifier: ANNAYD <+> 1 Procedure 2 <*> Procedure Colonoscopy, Esophagogastroduodenoscopy 3 <*> Procedure Colonoscopy, Esophagogastroduodenoscopy 4 <*> Procedure Colonoscopy, Esophagogastroduodenoscopy 01/05/19 13:25:00 Textile Cutting Machine Operator: HERBERT Modifier: ANDREWMAYD 2 <*> Procedure Colonoscopy, Esophagogastroduodenoscopy 3 <*> Procedure Colonoscopy, Esophagogastroduodenoscopy 4 <+> Time In 4 <*> Procedure Colonoscopy, Esophagogastroduodenoscopy 01/05/19 13:24:03 Textile Cutting Machine Operator: HERBERT Modifier: ANNAYD <+> 4 Case Attendee <+> 4 Role Performed <+> 4 Procedure [facility] - Case Times Entry 1 Patient In Room Time 01/05/19 13:22:00 Out Room Time 01/05/19 13:57:00 Anesthesia Start Time 01/05/19 13:22:00 Stop Time 01/05/19 13:54:00 Anesthesia Ready 01/05/19 13:23:00 Surgery / Procedure Times Start Time 01/05/19 13:30:00 Stop Time 01/05/19 13:54:00 Last Modified By: CORNELIA DODD RN 01/05/19 13:55:11 [facility] - Case Times Audit 01/05/19 13:55:11 Textile Cutting Machine Operator: HERBERT Modifier: HERBERT <+> 1 Out Room Time <+> 1 Stop Time <+> 1 Stop Time 01/05/19 13:30:14 Textile Cutting Machine Operator: HERBERT Modifier: SHERMAYD <+> 1 Start Time 01/05/19 13:23:41 Textile Cutting Machine Operator: HERBERT Modifier: ANDREWMAYD <+> 1 Anesthesia Ready E Endo - Cultures and Spec Summary Entry 1 Cultrures and Specimens Specimen Ordered: Yes Specimens Types Pathology Specimen(s) Labeled Lab, Pathology and Sent to Last Modified By: CORNELIA DODD RN 01/05/19 13:36:24 General Comments: duodenal bx, gastric antrum bx, distal esophageal bx E Endo - Delays Entry 1 Delay Reason Other Duration 0 Minute(s) Comment NO DELAY Last Modified By: CORNELIA DODD, JOB 01/05/19 13:24:07 [facility] - Departure from OR Entry 1 Integumentary Assessment Integumentary WDL Assessment WDL Transfer/Handoff Transfer to PACU Phase I Post-op Transport Stretcher/Gurney Via Patient Transport CORNELIA DODD, RN Accompanied by Last Modified By: CORNELIA DODD RN 01/05/19 13:25:03 E Endo - Endoscopy Details Entry 1 Abdomen Procedure Soft, Non-Tender Assessment Procedure Abdomen 01/05/19 13:25:00 Assessment D/T Radio Frequency Ablation Last Modified By: CORNELIA DODD RN 01/05/19 13:25:10 [facility] Endo - Fire Risk Assessment Entry 1 Fire Info Surgical Site or 1- Yes Incision Above the Xyphoid Open O2 Source 1- Yes (Mask or Cannula) Available Ignition 1- Yes (ESU, Laser, Light Source) Fire Risk 3 Assessment Score Fire Score Fire Risk Yes Assessment Complete Fire Risk CORNELIA DODD, dsp engineer Verified By Fire Risk 01/05/19 13:24:00 Assessment Verified Date/Time Fire Risk High Risk Protocol Yes Implemented Standard Fire Yes Safety Precautions Followed Last Modified By: CORNELIA DODD, JOB 01/05/19 13:24:29 E Endo - General Case City Carrier Assistant 1 Case Information OR Endo 04 E Case Level 1 Room Verified Yes Wound Class III - Contaminated Specialty SN Gastroenterology Anesthesia Type MAC ASA Class 3 Diagnosis Preop Diagnosis Z12.11/K59.00/R93.3 Postop Diagnosis gastritis Last Modified By: CORNELIA DODD RN 01/05/19 13:37:17 [facility] - General Case Data Audit 01/05/19 13:37:17 Textile Cutting Machine Operator: HERBERT Modifier: HERBERT 1 <*> OR Endo 03 [facility] 1 <+> Specialty 1 <+> ASA Class 1 <+> Anesthesia Type 1 <+> Postop Diagnosis 1 <+> Room Verified [facility] - Intraoperative Assessment Entry 1 Valid History / Yes Physical in Chart Preoperative Yes Checklist Reviewed/Evaluated Allergies Reviewed Yes Patient is Latex No Sensitive Level of WDL Consciousness (WDL = Alert, Oriented to Person, Place, and Time) Present Upon IVs, ECG monitored Arrival to OR Last Modified By: CORNELIA DODD RN 01/05/19 13:29:41 [facility] - Intraoperative Equipment Entry 1 Entry 2 Type Scope Scope Equipment Equipment ID Number Setting Intraop Monitoring Electrocardiogram Three lead placement (ECG) Electrode Placement Blood Pressure Source Blood Pressure Arm, left upper Arm, left upper Location Pulse Oximeter Hand, right Hand, right Probe Site Antiembolic Devices Antiembolic Devices Antiembolic Device Location Antiembolic Device ID Number Antiembolic Device Setting Scopes Flexible Endoscopes Gastroscope Colonoscope, Peds Used Scope Serial [id number] Number/Identificatio n Number Photo/Video Documentation Photo Yes Yes Video No No Intraop Equipment Comment Last Modified By: CORNELIA DODD, CORNELIA CARDONA, JOB 01/05/19 13:25:56 01/05/19 13:26:28 [facility] - Intraoperative Equipment Audit 01/05/19 13:26:28 Textile Cutting Machine Operator: HERBERT Modifier: HERBERT <+> 2 Photo <+> 2 Video <+> 2 Blood Pressure Location <+> 2 Pulse Oximeter Probe Site <+> 2 Flexible Endoscopes Used <+> 2 Scope Serial Number/Identification Number [facility] - Patient Positioning Entry 1 Procedure Esophagogastroduodenosco py, Duodenal Biopsy Body Position Lateral, right side up Left Arm Position Resting at side Right Arm Position Resting at side Left Leg Position Other Right Leg Position Other Position Comments Right leg over left leg uncrossed Feet Uncrossed Yes Pressure Points Yes Checked Positioned By CORNELIA DODD, RN Position Verified Positioning Yes Verified by Surgeon Last Modified By: CORNELIA DODD, RN 01/05/19 13:32:04 [facility] - Patient Positioning Audit 01/05/19 13:32:04 Textile Cutting Machine Operator: HERBERT Modifier: HERBERT Chaparro <*> Procedure Esophagogastroduodenoscopy [facility] - Sign In Entry 1 Patient, Site, Yes Procedure Identified Surgical Consent Yes Confirmed Surgical Site N/A Marked by person performing procedure Allergies Yes Airway Hypothermia Risk No Warming Measures No Taken Last Modified By: CORNELIA DODD, RN 01/05/19 13:24:57 [facility] - Sign Out Entry 1 RN Confirmation Surgical Yes Procedure(s) Identified Instrument, Sponge N/A and Sharps Counts Correct/Documented Equipment Problems N/A Documented Specimen Labeled Yes Correctly Urinary Catheter N/A Documented in IView Safety Checklist Yes Elements Complete? RN Sign Out CORNELIA ODDD, RN Signature RN Sign Out 01/05/19 13:54:00 Signature Date/Time Plan of Care Outcome - Fire Risk OUTCOME STATEMENT: Goal met Patient is free from injury related to surgical fire Plan of Care Outcome - Pt Positioning OUTCOME STATEMENT: Goal met Absence of signs and symptoms of positioning injury. Plan of Care Outcome - Skin Prep OUTCOME STATEMENT: Goal met Intraoperative care is consistent with measures to prevent infection Plan of Care Outcome - Xray/Images OUTCOME STATEMENT: N/A Absence of observable signs or symptoms of radiation injury Plan of Care Outcome - Counts OUTCOME STATEMENT: N/A Absence of signs and symptoms of injury related to extraneous objects Last Modified By: CORNELIA DODD, JOB 01/05/19 13:54:57 [facility] - Surgical Procedures Entry 1 Entry 2 Entry 3 Procedure Colonoscopy Esophagogastroduodenosco Duodenal Biopsy py Modifiers Additional Procedure Description Primary Procedure No Yes No Primary Surgeon WHITNEY OLSON JENNINGS-CONKLIN, KAREN, MD-GAE KAREN, MD-GAE KAREN, MD-GAE Start 01/05/19 13:40:00 01/05/19 13:30:00 01/05/19 13:30:00 Stop 01/05/19 13:54:00 01/05/19 13:34:00 01/05/19 13:34:00 Physician States 01/05/19 13:46:00 Cecum Reached Anesthesia Type MAC MAC MAC Specialty SN Gastroenterology SN Gastroenterology SN Gastroenterology Wound Class III - Contaminated II - Clean-Contaminated II - Clean-Contaminated Last Modified By: CORNELIA DODD, RN CORNELIA DODD, RN CORNELIA DODD, RN 01/05/19 13:54:47 01/05/19 13:36:44 01/05/19 13:36:44 [facility] - Surgical Procedures Audit 01/05/19 13:54:47 Textile Cutting Machine Operator: HERBERT Modifier: SHERMAYD 1 <*> Procedure Colonoscopy 1 <+> Stop 01/05/19 13:47:41 Textile Cutting Machine Operator: HERBERT Modifier: SHERMAYD 1 <*> Procedure Colonoscopy 1 <+> Physician States Cecum Reached 01/05/19 13:39:14 Textile Cutting Machine Operator: HERBERT Modifier: ANDREWMAYD 1 <*> Procedure Colonoscopy 1 <+> Specialty 1 <*> Start 01/05/19 13:30:00 01/05/19 13:36:44 Textile Cutting Machine Operator: HERBERT Modifier: SHERMAYD 2 <*> Procedure Esophagogastroduodenoscopy 2 <+> Stop 3 <*> Procedure Duodenal Biopsy 3 <+> Stop 01/05/19 13:31:59 Textile Cutting Machine Operator: HERBERT Modifier: SHERMAYD <+> 1 Start 2 <*> Procedure Esophagogastroduodenoscopy 2 <+> Specialty 2 <+> Start <+> 3 Procedure <+> 3 Primary Procedure <+> 3 Primary Surgeon <+> 3 Specialty <+> 3 Start <+> 3 Wound Class <+> 3 Anesthesia Type [facility] - Time Out Entry 1 Procedure to be Colonoscopy, Performed Esophagogastroduodenosco py, Duodenal Biopsy Time Out Time Out Pause Time 01/05/19 13:28:00 All activity Yes suspended (unless life threatening emergency) Team Verbally Correct patient Confirms Information identity, Consent form is present and accurate, Agreement on the procedure to be done, Correct patient position Antibiotic N/A Prophylaxis Administered Or In Progress Within the Last 60 Minutes Beta Emily N/A Administered Venous N/A Thromboembolism Prophylaxis Required Anticipated Critical Events Surgeon None expected Last Modified By: CORNELIA DODD, JOB 01/05/19 13:32:05 [facility] - Time Out Audit 01/05/19 13:32:05 Textile Cutting Machine Operator: HERBERT Modifier: HERBERT 1 <*> Procedure to be Performed Colonoscopy, Esophagogastroduodenoscopy Case Comments <None> Finalized By: CORNELIA DODD, RN Document Signatures Signed By: CORNELIA DODD, RN 01/05/19 13:55 Electronically signed by [facility], [facility] Conversion Supercalender Operator Helper Cerner at 12/14/2022 12:10 PM CDT documented in this encounter Plan of Treatment Not on file documented as of this encounter Visit Diagnoses Not on filedocumented in this encounter Care Teams Aoc Plans Intelligence Officer Chief Relationship Specialty Start Date End Date Jaelyn Renteria, PRIVATE WEALTH ADVISOR [address] [place] [address] PCP - General Family Medicine 10/06/22 Vanessa Green MD [address] [place] [phone] Cleater Rheumatology 10/06/22 documented as of this encounter
--- OUTSIDE RECORDS SUMMARY | 2025-03-14 09:45 | XMS_ITS | Encounter Summary ---
Author Organization [employer] ([place], [place], [place], [place]) Address [address] [place] [address] Care Team Providers Care Customer Experience Analyst Name Role Phone Jaelyn Renteria APRN Primary Care Provider [phone] Vanessa Green MD Unavailable Encounter Details Date Type Department Care Team (Late st Contact Info) Description 06/10/2019 Transcribed Document [facility] [place] [facility] [place] [address] ProviderLexi MD [address] [place] [address] Social History Tobacco Use Types Packs/Day Years Used Date Smoking Tobacco: Never Assessed Comments Unknown Sex and Gender Information Value Date Recorded Sex Assigned at Not on file Legal Sex Female 2:44 PM CDT Gender Identity Not on file Sexual Orientation Not on file documented as of this encounter Miscellaneous Notes * Cerner Conversion Note - Lexi Vickers MD - 06/10/2019 1:17 PM CDT Patient: LILI DAMON Age: 58 Years Sex: Female : 1960 FOLLOWUP DATE OF SERVICE: 06/06/2019 CHIEF COMPLAINT: Pain. HISTORY OF PRESENT ILLNESS: This patient is a 58-year-old female who returns to clinic for followup on her neck pain, bilateral shoulder pain with arm numbness, low back pain, bilateral thumb pain that is burning. She states since she had a rhizotomy, she is now having pain more above and below the levels of rhizotomy. She also states three months ago, she fell in the road and landed on her right butt cheek and she thinks that is what has caused her neck pain to start hurting her again. She has a history years ago of surgery on it, but she did not seek medical attention. The quality of her pain is burning, radiating, numbness and tingling, and sharp. Her pain is constant. Heat therapy is beneficial. She takes [id number] Tylenol and ibuprofen. She has had his pain for 20 years. She has decreased pain with heating pad, ibuprofen, CBD oil and increased pain with getting up and down, sweeping, bending. She reports 10% relief with his current medication (at last visit she reported 20% relief). Fall risk info sheet provided. HISTORY: Allergies: Multiple and are on her medication list reviewed and scanned into her chart. Social: Marital status: . Current work status: Disabled. Current tobacco use: Denied Illicit drug use: Not answered. Alcohol use: One drink of alcohol occasionally. Caffeine use: Not answered. Past Medical History: Positive for anemia, arthritis, asthma, skin cancer, chickenpox, depression, head injury, high cholesterol, obstructive sleep apnea, stroke, and thyroid disease. Past Surgical History: Positive for appendix, gallbladder, ovaries, shoulder, spinal surgery to the neck, tonsils, tubal, left foot. Past Family History: Positive for lung cancer, lung disease, migraines, thyroid disease, substance abuse disorder, stroke, mental illness, heart disease, depression. REVIEW OF SYSTEMS: Complete ten-system review is performed and positives include: General: Fatigue, fever, weight gain. Respiratory: Chronic cough, shortness of breath. Neurological: Tremors, numbness and tingling. Gastrointestinal: Constipation. Musculoskeletal: Joint pain, stiffness, neck pain, back pain, muscle weakness, muscle aches and pain. Psychiatric: Anxiety. Changes in sleep. HEENT: Hoarseness. Endocrine: Increased thirst, cold intolerance, hair and skin changes. Hematology: Eash bruising, anemia. All other systems are negative. VITAL SIGNS: Vital signs are reviewed. BP 113/76, heart rate 95, respiratory rate 16, O2 SAT 94% on room air, height 5???5?? , weight 152 lbs. PHYSICAL EXAMINATION: Constitutional: Freely conversant, no acute distress. Neuropsychiatric: A&O x 3. Normal mood and affect. She scored 19 on the depression questionnaire. She is treated. She has no suicidal ideation. She is tender to palpation over her axial cervical spine and she has multiple trigger points throughout her splenius, upper trapezius, rhomboids and levator. Established patient exam is deferred. MEDICAL DECISION MAKING: E-JOHNATHAN is reviewed and is appropriate. Patient???s medications are reviewed. See list in patient???s file. ASSESSMENT: 1. Chronic lumbar facet arthropathy. 2. Lumbar spondylosis. 3. Lumbar degenerative disc disease. 4. Cervical degenerative disc disease status post anterior cervical disc fusion. CURRENT PLAN: I have reviewed the patient's history; on , she had a medial branch block. she got 100% relief for about a week. Unfortunately when she got her rhizotomy on 04/13/2019 right L4-L5 sacral ala and left L4-L5 sacral ala on 04/27/19, she is reporting 10% relief. She did not seek medical attention for her neck. Dr. Marc did her C-spine surgery, but he did not recommend any on her lumbar spine. I talked to her about steroid injections; she said she cannot tolerate steroids, either injection or p.o., as she develops severe kai. I have reviewed Dr. 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 She has axial low back pain which Dr. Mccloud felt was associated with posterior element pathology. She has previously tried neuropathic agents which she did not tolerate well including gabapentin. Dr. Mccloud wrote her a prescription for Percocet 5 mg q12h; she states she only takes the Valium as needed, and she does not rely on it, so she is going to wean off the Valium entirely. I noted on her JOHNATHAN today there was a fill for Valium and so she needs to continue to wean off this; she states she takes it p.r.n. I am going to increase her Percocet by 1 from Percocet 5 mg q12h, to Percocet 5 mg q8h, but she must at next visit show that she is weaning off her Valium or we will go back down. She takes Citrucel. I am going to get an AP and lateral flexion and extension cervical x-ray secondary to her fall with a history of surgery and increased pain. She is in understanding of the above plan. We will see her back in followup in four weeks. Meghan Abdullahi MD Electronically signed by [facility], [facility] Conversion Associate Professor Of Literacy Cerner at 12/14/2022 11:47 AM CDT documented in this encounter Plan of Treatment Not on file documented as of this encounter Visit Diagnoses Not on filedocumented in this encounter Care Teams Customer Experience Analyst Relationship Specialty Start Date End Date Jaelyn Renteria APRN [address] [place] [id number] PCP - General Family Medicine 10/06/22 Vanessa Green MD [address] [place] [phone] Commercial Instructor Supervisor Rheumatology 10/06/22 documented as of this encounter
--- OUTSIDE RECORDS SUMMARY | 2025-03-14 09:45 | XMS_ITS | Patient Health Record ---
Author Organization [facility] Address [address] [place] [address] Care Team Providers Care It Teacher Name Role Phone Red Tamayo II Unavailable [phone] Jaelyn Guerrero Unavailable Unavailable Freeman Albarran Unavailable [phone] Allergies Allergen (clinical drug ingredient) Drug/Non Drug [...] Oxycodone (OXY) NEG Urine Test ANALYZER Reviewed date:03/28/2024 07:33:58 AM Interpretation:+OXY Performing Lab: Notes/Report: +OXY Heroin Metabolite (6AM) NEG Amphetamine (AMP) NEG Benzodiazepine (EMANUEL) NEG Buprenorphine NEG Cocaine (KYLE) NEG Hydrocodone (HYD) NEG Methadone (MTD) NEG Opiate (OPI) NEG Oxycodone (OXY) POS Urine Test LCMS Definitive Reviewed date:11/15/2024 07:10:36 AM Interpretation:+oxy 2/3 Performing Lab: Notes/Report: +oxy 2/3 Urine Test ANALYZER Reviewed date:11/20/2024 03:15:16 PM [...] Oxycodone (OXY) POS Urine Test ANALYZER Reviewed date:06/05/2024 07:51:25 AM [...] NEG Opiate (OPI) NEG Oxycodone (OXY) POS Reason For Referral Reason Faxed 08/02-Evaluate/ treat if candidate for surgical intervention for lumbar pain. Diagnosis 1 Spondylosis without myelopathy or radiculopathy, lumbar region (M47.816) Referral Organization [facility] Referring Provider First Name Red Referring Provider Last Name Belkis Referring Provider Speciality Pain Manag ement Referred Organization [facility] Referred Address [address] [place] [address], [place],[address], Referred Provider Specialty Neurological Surgery General Notes Juan C (PA-Evv),Elaine lopez 08/02/2024 3:14:46 PM > Please contact the patient to schedule and fax confirmation of the scheduled appt to [phone]. If you need any additional information, please contact our office at [phone]. Thank You , Juan C (Susannah),Kenyatta 08/02/2024 3:30:35 PM > Faxed to [facility], Margy Soria (Nicholas) 09/18/2024 12:44:01 PM > Called [facility] and was advised this pt was scheduled for this on 10/10/24 but cx'd the appt due to transportation issues. Pt also no showed her last follow up with us and has not rescheduled. Closing referral but per [facility], she can reschedule whenever ready. Referral Priority Routine Medications Medication SIG (Take, Route, Frequency, Duration) [...] ONLY IF CLOSED) Fax PA request to [phone] or [phone] Active benzonatate 100 mg 1 cap(s) orally 3 times a day; Duration: 5 day(s) 10/20/2022 Active fenofibrate 145 mg 1 tab(s) orally once a day; Duration: 30 day(s) 10/29/2022 Active Meclizine 25 mg 1 tab Oral tid prn; Duration: 15 days 10/29/2022 Active acetaminophen-oxycodo ne 325 mg-7.5 mg 1 tab(s) orally 3 times a day; Duration: 28 days January 2025 RX DO NOT FILL SOONER THAN 28 DAYS, (OK TO FILL EARLY, ONLY IF CLOSED) Fax PA request to [phone] or [phone] 01/30/2025 Active acetaminophen-oxycodo ne 325 mg-7.5 mg 1 tab(s) orally 3 times a day; Duration: 28 days February 2025 RX DO NOT FILL SOONER THAN 28 DAYS, (OK TO FILL EARLY, ONLY IF CLOSED) Fax PA request to [phone] or [phone] 01/30/2025 Active Social History Alcohol Screen Question Answer Notes Did you have a drink contain ing alcohol in the past year? Yes How often did you have a dri nk containing alcohol in the past year? Monthly or less (1 point) Points 1 Interpretation Negative Problems Problem Type SNOMED Code ICD Code Onset Dates Problem Status W/U Status Risk Notes Problem Chronic pain syndrome (158569424) Chronic pain syndrome (G89.4) Active confirmed Problem Complex regional pain syndrome type I of right lower limb (disorder) (05139905915990 9) Complex regional pain syndrome I of right lower limb (G90.521) Active confirmed Problem Complex regional pain syndrome of lower limb (disorder) (788319052) Complex regional pain syndrome I of unspecified lower limb (G90.529) Active confirmed Problem Post-laminectom y syndrome (14560807) Postlaminectomy syndrome, not elsewhere classified (M96.1) Active confirmed Problem Long-term current use of drug therapy (885797392) Other correction (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 (Z79.899) Active confirmed Problem Lumbar spondylosis (204473042) lumbar spondylosis (M47.816) Active confirmed Problem Cervical spondylosis (610859710) cervical spondylosis (M47.812) Active confirmed Vital Signs Heart Rate 91 /min 01/30/2025 Blood pressure diastolic 77 mm Hg 01/30/2025 Height 65 in 01/30/2025 Blood pressure systolic 121 mm Hg 01/30/2025 Weight 130 lbs 01/30/2025 BMI 21.63 kg/m2 01/30/2025 Encounters Encounter Location Date Provider Diagnosis [facility] [address] [place] [address] 03/27/2024 Red Tamayo Other director long term care (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 Z79.899 ; lumbar spondylosis M47.816 ; cervical spondylosis M47.812 ; Postlaminectomy syndrome, not elsewhere classified M96.1 and Complex regional pain syndrome I of right lower limb G90.521 [facility] [address] [place] [address] 05/29/2024 Red Tamayo Other director long term care (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 Z79.899 ; lumbar spondylosis M47.816 ; cervical spondylosis M47.812 ; Postlaminectomy syndrome, not elsewhere classified M96.1 and Complex regional pain syndrome I of right lower limb G90.521 [facility] [address] [place] [address] 07/24/2024 Red Tamayo Other correction (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 Z79.899 ; lumbar spondylosis M47.816 ; cervical spondylosis M47.812 ; Postlaminectomy syndrome, not elsewhere classified M96.1 and Complex regional pain syndrome I of right lower limb G90.521 [facility] [address] [place] [address] 09/26/2024 Red Tamayo Other correction (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 Z79.899 ; lumbar spondylosis M47.816 ; cervical spondylosis M47.812 ; Postlaminectomy syndrome, not elsewhere classified M96.1 and Complex regional pain syndrome I of right lower limb G90.521 [facility] [address] [place] [address] 11/20/2024 Red Tamayo Other correction (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 Z79.899 ; lumbar spondylosis M47.816 ; cervical spondylosis M47.812 ; Postlaminectomy syndrome, not elsewhere classified M96.1 and Complex regional pain syndrome I of right lower limb G90.521 [facility] [address] [place] [address] 01/30/2025 Red Tamayo Other correction (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 Z79.899 ; lumbar spondylosis M47.816 ; cervical spondylosis M47.812 ; Postlaminectomy syndrome, not elsewhere classified M96.1 and Complex regional pain syndrome I of right lower limb G90.521 [facility] [address] [place] [address] 02/04/2025 Red Tamayo [facility] [address] [place] [address] 02/07/2025 Red Tamayo [facility] [address] [place] [address] 03/28/2024 Red Tamayo Other correction (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 Z79.899 [facility] [address] [place] [address] 05/29/2024 Red Tamayo Other director long term care (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 Z79.899 [facility] [address] [place] [address] 05/30/2024 Red Tamayo [facility] [address] [place] [address] 07/24/2024 Red Tamayo Other correction (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 Z79.899 [facility] [address] [place] [address] 08/02/2024 Red Tamayo [facility] [address] [place] [address] 09/26/2024 Red Tamayo Other correction (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 Z79.899 [facility] [address] [place] [address] 11/20/2024 Red Tamayo Other director long term care (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 Z79.899 [facility] [address] [place] [address] 12/01/2024 Red Tamayo [facility] [address] [place] [address] 01/30/2025 Red Tamayo Other correction (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 Z79.899 Assessments Encounter Date Diagnosis (ICD Code) Assessment Notes Treatment Notes Treatment Clinical Notes Section Notes 03/27/2024 Other correction (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 (ICD-10 - Z79.899) 03/27/2024 [...] medication and f/u 2 months 03/28/2024 Other correction (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 (ICD-10 - Z79.899) 05/29/2024 Other director long term care (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 (ICD-10 - Z79.899) 05/29/2024 Other correction (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 (ICD-10 - Z79.899) May [...] risk assessment is low. f/u 2 months 74VSC61 - Patient with chronic LBP with radicular [...] risk assessment is low. f/u 2 months 24RQL21 - Patient with chronic LBP with radicular [...] a good response prior to implant. 07/24/2024 Other correction (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 (ICD-10 - Z79.899) July [...] risk assessment is low. f/u 2 months 03JAX02 - Patient with chronic LBP with radicular [...] validate a good response prior to implant. 67NKP24 - Patient presents today to discuss further [...] risk assessment is low. f/u 2 months 32WDM84 - Patient with chronic LBP with radicular [...] validate a good response prior to implant. 12QMI87 - Patient presents today to discuss further [...] her back and radicular pain. 07/24/2024 Other correction (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 (ICD-10 - Z79.899) 09/26/2024 Other director long term care (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 (ICD-10 - Z79.899) 09/26/2024 [...] refilled and f/u 2 months. 09/26/2024 Other director long term care (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 (ICD-10 - Z79.899) 11/20/2024 Other director long term care (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 (ICD-10 - Z79.899) 11/20/2024 Other director long term care (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 (ICD-10 - Z79.899) 11/20/2024 [...] refilled and f/u 2 months. 01/30/2025 Other correction (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 (ICD-10 - Z79.899) 01/30/2025 [...] two months, or sooner if needed. 01/30/2025 Other director long term care (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 (ICD-10 - Z79.899) 01/30/2025 lumbar spondylosis (ICD-10 - M47.816) 11/20/2024 [...] in two months, or sooner if needed. 11/20/2024 cervical spondylosis (ICD-10 - M47.812) 11/20/2024 [...] months. 09/26/2024 cervical spondylosis (ICD-10 - M47.812) 09/26/2024 [...] reviewed. Meds refilled and f/u 2 months. 07/24/2024 cervical spondylosis (ICD-10 - M47.812) 11/29/23 [...] risk assessment is low. f/u 2 months 64VGR93 - Patient with chronic LBP with radicular [...] validate a good response prior to implant. 74ONN50 - Patient presents today to discuss further [...] risk assessment is low. f/u 2 months 35KYO33 - Patient with chronic LBP with radicular [...] risk assessment is low. f/u 2 months 39FOB74 - Patient with chronic LBP with radicular [...] risk assessment is low. f/u 2 months 08UZF87 - Patient with chronic LBP with radicular [...] validate a good response prior to implant. 42EDI62 - Patient presents today to discuss further [...] Meds refilled and f/u 2 months. 11/20/2024 Postlaminectomy syndrome, not elsewhere classified (ICD-10 [...] Meds refilled and f/u 2 months. 01/30/2025 cervical spondylosis (ICD-10 - M47.812) 11/20/2024 [...] in two months, or sooner if needed. 11/20/2024 Complex regional pain syndrome I of [...] risk assessment is low. f/u 2 months 79WCE81 - Patient with chronic LBP with radicular [...] risk assessment is low. f/u 2 months 57RGP96 - Patient with chronic LBP with radicular [...] validate a good response prior to implant. 21EIB41 - Patient presents today to discuss further [...] two months, or sooner if needed. 05/18/2024 03/27/2024 Ms. Damon returns today for office [...] Refill medication and f/u 2 months 09/14/2024 11/29/23 Ms. Damon returns today for office [...] risk assessment is low. f/u 2 months 92HNJ21 - Patient with chronic LBP with radicular [...] validate a good response prior to implant. 05OKU27 - Patient presents today to discuss further [...] for her back and radicular pain. 09/22/2024 11/29/23 Ms. Damon returns today for office [...] risk assessment is low. f/u 2 months 30QWF01 - Patient with chronic LBP with radicular [...] validate a good response prior to implant. 27LAW86 - Patient presents today to discuss further [...] for her back and radicular pain. 09/26/2024 11/29/23 Ms. Damon returns today for office [...] risk assessment is low. f/u 2 months 13OFE65 - Patient with chronic LBP with radicular [...] validate a good response prior to implant. 40VPN68 - Patient presents today to discuss further [...] for her back and radicular pain. 01/15/2025 11/20/2024 Ms. Damon returns today for office [...] and f/u 2 months. Plan Of Treatment Pending Test Test Name Order Date Urine Test LCMS Definitive 01/30/2025 Next Appt Details Provider Name:Red cooney, 03/27/2025 02:15:00 PM, [address], [place], [address], Insurance Providers Payer Name Payer Address Payer Phone Subscriber Number Group Number Insured Name Patient Relationship to Insured Coverage Start Date Coverage End Date [employer] [address] [place] [address] [id number] Diamond Damon Self - patient is the insured 5 [place] Medicaid [address] [place] [address] [phone] [id number] Diamond Damon Self - patient is the insured 9 Medical (General) History Medical History History ICD Code anxiety diagnosed managed by Jose De Jesus Renteria APRN asthma diagnosed 1979 managed by Jaelyn Renteria APRN bipolar disorder diagnosed 1993 managed by Jaelyn Renteria APRN COPD diagnosed 1979 managed by Jaelyn mishra APRN fibromyalgia diagnosed 1989 managed by [...] Surgery Date(Month/Year) Left ankle surgery x2/ [facility] / with a 3 day stay 1999 Appendectomy/ [facility] / overnigh t stay 2003 Cholecystectomy/ [facility] / overn ight stay 2002 LT Hand Surgery x2/ [facility] / wi th a 3 day stay 1976 Neck (cervical discetomy)Dr. Marc/ [facility] / over night stay 2004 RT Shoulder / [facility] / (OP) 198 2 Tonsillectomy/ [facility] / (OP) 19 66 Tubal abdominal ligation / in [place] / (O P) 1981 Bladder lift / [facility] / Dr. Daniel Crawford / (OP) 2005 Ovarien Cyst Rupture/ [facility]atta A Elvis in [facility] / with a 3-4 day stay 1987 oophorectomy (left)/ [facility] / ( OP) 2005 [place] teeth/ Dr. Hess / (OP) 1976 Hernia repair / [facility] / (OP) 03/14/2021 Hospitalization History Reason Date(Month/Year) Bowel obstruction / [facility] / treated and rel eased 02/2021 Coughing/ [facility]/1 day stay 01/2025
--- OUTSIDE RECORDS SUMMARY | 2025-03-14 09:45 | XMS_ITS | Encounter Summary ---
Author Organization Healthcare Address [address] [place] [address] Care Team Providers Care Teaching Associate Name Role Phone Pcp, No Primary Care [...] on filedocumented in this encounter Care Teams Teaching Associate Relationship Specialty Start Date End Date Pcp, No [address] [place] [address] PCP - General Family Medicine 02/01/25 documented as of this encounter
--- OUTSIDE RECORDS SUMMARY | 2025-03-14 09:45 | XMS_ITS | Encounter Summary ---
Author Organization [facility] ([place], [place], [place], [place]) Address [address] [place] [address] Care Team Providers Care Plaster Maker Name Role Phone Jaelyn Renteria APRN Primary Care Provider [phone] Vanessa Green MD Unavailable Encounter Details Date Type Department Care Team (Late st Contact Info) Description 01/05/2019 Transcribed Document [facility] [place] [address] [place] [address] ProviderLexi MD [address] [place] [address] Social History Tobacco Use Types Packs/Day Years Used Date Smoking Tobacco: Never Assessed Comments Unknown Sex and Gender Information Value Date Recorded Sex Assigned at Not on file Legal Sex Female 2:44 PM CDT Gender Identity Not on file Sexual Orientation Not on file documented as of this encounter Miscellaneous Notes * Cerner Conversion Note - Lexi ProviderMD - 01/05/2019 2:12 PM CDT [address] [address] LILI DAMON :1960 Visit Time:01/05/2019 [...] Follow Up with GILBERT OLSON MD-GAE When Only if needed Where: [address] [facility] [address] [place] [id number]- Medications What How Much When Instructions Next [...] and medications per pharmacy guidance. Education Materials omeprazole (oh MEP ra zol) FIRST Omeprazole, [...] a broken bone while taking this medicine half-way or more than once per day. What [...] by infection with Helicobacter pylori (H. pylori). Yilv-aip-ytxdsap (OTC) omeprazole is used to help control [...] medicine exactly as directed. Use Prilosec OTC (pgkl-puj-szvjqsc) exactly as directed on the label, or [...] may report side effects to FDA at [phone]. What other drugs will affect omeprazole? Sometimes it is not safe to use certain medications at the same time. Some drugs can affect your blood levels of other drugs you take, which may increase side effects or make the medications less effective. Tell your doctor about all your current medicines. Many drugs can affect omeprazole, especially: ? clopidogrel; ?? methotrexate; ?? Danae's wort; or ?? an antibiotic--amoxicillin, clarithromycin, rifampin. This list is not complete and many other drugs may affect omeprazole. This includes prescription and midr-ovj-swipunv medicines, vitamins, and herbal products. Not all [...] to ensure that the information provided by [employer]. ('[employer]') is accurate, up-to-date, and complete, but no guarantee is made to that effect. Drug information contained herein may be time sensitive. [employer] information has been compiled for use by healthcare practitioners and consumers in the [place] and therefore [employer] does not warrant that uses outside of the [place] are appropriate, unless specifically indicated otherwise. [employer] drug information does not endorse drugs, diagnose patients or recommend therapy. [employer] drug information is an informational resource designed [...] effective or appropriate for any given patient. [employer] does not assume any responsibility for any aspect of healthcare administered with the aid of information [employer] provides. The information contained herein is not intended to cover all possible uses, directions, precautions, warnings, drug interactions, allergic reactions, or adverse effects. If you have questions about the drugs you are taking, check with your doctor, nurse or pharmacist. Copyright 2161-4957 [employer]. Version: 19.01. Revision Date: 02/21/2018. Emergency Awareness [...] Assistance with quitting is available by contacting 4-943-LABC-NOW. This is a free resource providing counseling, support, and referral. Or you may contact your personal physician. National Suicide Prevention Lifeline: The National Suicide Prevention [...] Be sure to sign up for the [employer] patient portal, which gives you 22/03 access to your medical information ??? including these discharge instructions ??? using your computer, smartphone, or tablet. Just go to [employer] to get started. Questions? Call . Test Results Laboratory or Other Results This Visit (last charted value for your 01/05/2019 visit) No Laboratory or Other Results This Visit Patient Name:LILI DAMON I have received this information and was given the opportunity to ask questions. Patient/Behavioral Therapist Name: Patient/Behavioral Therapist Signature: Relationship to Patient: Clinician/Hospital Behavioral Therapist Signature: Date: documented in this encounter Plan of Treatment Not on file documented as of this encounter Visit Diagnoses Not on filedocumented in this encounter Care Teams Plaster Maker Relationship Specialty Start Date End Date Jaelyn Renteria APRN [address] [place] [address] PCP - General Family Medicine 10/06/22 Vanessa Green MD [address] [place] [address] Internal Grinder Rheumatology 10/06/22 documented as of this encounter
--- OUTSIDE RECORDS SUMMARY | 2025-03-14 09:45 | XMS_ITS | Encounter Summary ---
Author Organization [facility] ([place], [place], [place], [place]) Address [address] [place] [address] Care Team Providers Care Train Operator Name Role Phone Jaelyn Renteria APRN Primary Care Provider [phone] Vanessa Green MD Unavailable Encounter Details Date Type Department Care Team (Late st Contact Info) Description 04/13/2019 Transcribed Document [facility] [place] [facility] [place] [address] ProviderLexi MD [address] [place] [address] Social History Tobacco Use Types Packs/Day Years Used Date Smoking Tobacco: Never Assessed Comments Unknown Sex and Gender Information Value Date Recorded Sex Assigned at Not on file Legal Sex Female 2:44 PM CDT Gender Identity Not on file Sexual Orientation Not on file documented as of this encounter Miscellaneous Notes * Cerner Conversion Note - Lexi Vickers MD - 04/13/2019 10:00 AM CDT Patient: LILI DAMON Age: 58 years Sex: Female : 1960 Associated Diagnoses: None Author: SABINE LUGO II, MD-ANS Procedure Performed: Lumbar Rhizotomy at L4, L5 and Sacral Ala on the right for a total of 3 injection sites. Preoperative Diagnosis: Low back pain secondary to Lumbar Spondylosis Lumbar Facet Disease Postoperative Diagnosis: Same Anesthesia: Local with 10mg PO Valium Complications: none Fluoroscopy: 2.00 Procedure: The risk and benefits were explained. An informed consent was obtained. The patient was placed in a prone position. Landmarks were identified. A sterile prep was performed. A lidocaine skin wheal was raised over the inferior articulating process of the facet joint(s) at the L4, L5 and Sacral Ala on the right for a total of 3 injection sites. [...] on filedocumented in this encounter Care Teams Train Operator Relationship Specialty Start Date End Date Jaelyn Renteria APRN [address] [place] [address] PCP - General Family Medicine 10/06/22 Vanessa Green MD [address] [place] [address] Emissions Inspector Rheumatology 10/06/22 documented as of this encounter
--- OUTSIDE RECORDS SUMMARY | 2025-03-14 09:45 | XMS_ITS | Encounter Summary ---
Author Organization [email or web address] ([place], [place], [place], [place]) Address [address] [place] [address] Care Team Providers Care Health It Specialist Name Role Phone Jaelyn Renteria APRN Primary Care Provider [phone] Vanessa Green MD Unavailable Encounter Details Date Type Department Care Team (Late st Contact Info) Description 11/09/2018 Transcribed Document [facility] Family Medicine [address] [place] [address] ProviderLexi MD [address] [place] [address] Social History Tobacco Use Types Packs/Day Years Used Date Smoking Tobacco: Never Assessed Comments Unknown Sex and Gender Information Value Date Recorded Sex Assigned at Not on file Legal Sex Female 2:44 PM CDT Gender Identity Not on file Sexual Orientation Not on file documented as of this encounter Miscellaneous Notes * Cerner Conversion Note - Lexi Vickers MD - 11/09/2018 11:59 PM CDT Referring Provider : Vanessa Green MD Indication : Shortness of Breath / scleroderma Clinical History : Height- 65.5 Inches Weight:- 150 Lbs BMI : 24 Smoking History: Patient smoked 2 packs per day for 2 years. She quit smoking 41 years ago Patient gave great effort and ATS criteria was met. Interpretation: 1. Spirometry : FEV1/FVC was normal at 83% with FEV1 of 1.54 L which corresponds to 63 % of best predicted value. There was significant response to Bronchodilators 2. Lung volumes : showed no evidence of restrictive pattern with TLC of 3.78 L which corresponds to 73 % of best predicted value . 3. DLCO was normal at 16.5 ml/mmHg/ min which corresponds to 79 % of best predicted value Conclusion: Patient has no obstructive pattern with significant response to BD, no restrictive disease. DLCO was normal Significant response to bronchodilators may indicate asthma as a clinical diagnosis. Clinical correlation is recommended Electronically signed by Jarocho Traore Conversion Bar Gauger And Lubricator Tender Cerner at 12/18/2022 8:32 AM CDT documented in this encounter Plan of Treatment Not on file documented as of this encounter Visit Diagnoses Not on filedocumented in this encounter Care Teams Health It Specialist Relationship Specialty Start Date End Date Jaelyn Renteria APRN [address] [place] [address] PCP - General Family Medicine 10/06/22 Vanessa Green MD [address] [place] [phone] Survey Data Technician Rheumatology 10/06/22 documented as of this encounter
--- OUTSIDE RECORDS SUMMARY | 2025-03-14 09:45 | XMS_ITS | Clinical Summary ---
Author Organization Healthcare Address [address] [place] [address] Care Team Providers Care Director Non Profit Name Role Phone Pcp, No Primary Care [...] - 02/01/2025 3:04 PM EDT Hospital Encounter [facility] [address] [place] [address] Lc Childs MD Unspecified mood (affective) disorder [...] Wellness (AWV) 1960 [facility]-/Child/Adol SDOH Screenings 1960 ZTC-OSVEL-14 Vaccine (#1) 12/03/1964 [facility]- SDOH Screenings 12/03/1977 [...] 12/19/2012 [facility]-Colorectal Cancer Screening 12/19/2022 [facility]-Influenza Vaccine (#1) 04/30/202507/22, 06/12/2015, 06/13/2014, Additional history exists [facility]-DTaP,Tdap,and Td [...] Antigen Negative Negative 02/01/2025 2:56 PM EDT [facility] Blood Venous blood specimen / Unknown 02/01/2025 10:04 AM EDT us Desiree Simon APRN LAB BLOOD ORDERABLES Final Re sult [facility] [address] [place] [address] * Hepatitis C Antibody with Reflex to HCV Quant PCR - Empath (02/01/2025 2:04 PM EDT) Hepatitis C Antibody Negative Negative 02/01/2025 2:04 PM EDT [facility] Blood Venous blood specimen / Unknown 02/01/2025 10:04 AM EDT Desiree Simon MEAT CUTTER LAB BLOOD ORDERABLES Final Re sult Performing Organization Address [facility]/ZIP Co de Phone Number [facility] [address] [place] [address] * HIV 1 & 2 Antibody/Antigen Screen (02/01/2025 1:28 PM EDT) HIV 1 & 2 Antibody/Antigen Screen Non Reactive Non Reactive 02/01/2025 1:28 PM EDT [facility] Comment:Screening for HIV 1 & 2 antibodies, and P24 antigen is NONREACTIVE. No confirmatory testing is required. Blood Venous blood specimen / Unknown 02/01/2025 10:04 AM EDT [facility]LES Final Re sult Performing Organization Address [facility] Co de Phone Number [facility] [address] [place] [address] * COLONOSCOPY (12/19/2012) Anatomical Region Laterality Modality Endoscopy Narrative 12/19/2012 Ordered by an unspecified provider. Historical Provider GI PROCEDURE ORDERABLES F inal Result * Cytology (04/17/1997 12:00 AM EDT) 04/17/1997 04/18/1997 Narrative [facility] - 04/23/1997 12:00 AM EDT [facility] MR #: [id number] [facility] [place]I [place], [place] [address] 1960 (Age: 36) FW Collect Date: 04/17/1997 00:00 Receipt Date: 04/18/1997 00:00 Page 1 DEPARTMENT OF PATHOLOGY AND LABORATORY MEDICINE CYTOPATHOLOGY REPORT Email: [email or web address] * Converted Case * This report may not match the original report format ATTENDING MD/Practitioner: Mary Galan MD Service: PLANER OFFBEARER Location: Reported: 04/23/1997 00:00 Collected: 04/17/1997 00:00 [...] results is suggested (please call Microbiology at [phone] for results). CLINICAL INFORMATION: Menstrual History: {Not Provided} Date of Last Menstrual Period: {Not Provided} SPECIMEN DESCRIPTION: A: THIN PREP(CERVICAL/ENDOCERVICAL)., THIN PREP PAP ICD: F: {Not Entered} SNOMED CODES: 1; J3N824.3 [id number] [id number] In cases where a pathologist has signed out the report, the service has been rendered in part by a resident. The signing pathologist has performed and is responsible for the reported pathologic evaluation. Yumiko Galan MD LAB PATHOLOGY ORDERABLES Mi cornejo Result [facility] from Last 3 Months or Most Recently Relevant to Health Maintenance Insurance [place] Care Teams Director Non Profit Relationship Specialty Start Date End Date Pcp, Alicia [address] [place] [address] PCP - General Family Medicine 02/01/25
--- OUTSIDE RECORDS SUMMARY | 2025-03-14 09:45 | XMS_ITS | Patient Health Record ---
Author Organization [facility] Address [address] [place] [address] [address] [place] [address] Care Team Providers Care Slab Polisher Name Role Phone Jaelyn Guerrero Unavailable Unavailable [...] Status Risk Notes Problem Chronic pain syndrome (686151232) Chronic pain syndrome (G89.4) Active confirmed Problem Complex regional pain syndrome type I of right lower limb (disorder) (15676821404035 9) Complex regional pain syndrome I of right lower limb (G90.521) Active confirmed Problem Complex regional pain syndrome of lower limb (disorder) (333769878) Complex regional pain syndrome I of unspecified lower limb (G90.529) Active confirmed Problem Post-laminectom y syndrome (96218816) Postlaminectomy syndrome, not elsewhere classified (M96.1) Active confirmed Problem Long-term current use of drug therapy (669815377) Other terminologist (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 (Z79.899) Active confirmed Problem Lumbar spondylosis (853135226) lumbar spondylosis (M47.816) Active confirmed Problem Cervical spondylosis (650162738) cervical spondylosis (M47.812) Active confirmed Plan Of Treatment Pending Test Test Name Order Date Urine Test LCMS Definitive 08/16/2023 Insurance Providers Payer Name Payer Address Payer Phone Subscriber Number Group Number Insured Name Patient Relationship to Insured Coverage Start Date Coverage End Date [place] Medicaid [address] [place] [phone] [id number] Diamond Damon Self - patient is the insured 9 Medical (General) History Medical History History ICD Code anxiety-/Jaelyn Renteria [employer] APPLICATION DEVELOPER asthma-1979/Jaelyn Renteria [employer] APPLICATION DEVELOPER bipolar disorder-1993/Jaelyn Renteria [employer] APPLICATION DEVELOPER COPD-1979/Jaelyn Renteria [employer] APPLICATION DEVELOPER fibromyalgia-1989/Jaelyn Godkelley [employer] APPLICATION DEVELOPER depression-/Jaelyn Renteria [employer] APPLICATION DEVELOPER [id number] issue/Jaelyn Martinez odkelley [employer] APPLICATION DEVELOPER Stroke-1993/Jaelyn Renteria [employer] APPLICATION DEVELOPER Hypothyroidism-1979/Jaelyn Renteria [employer] APPLICATION DEVELOPER [id number]/Jaelyn Renteria [employer] APPLICATION DEVELOPER Degenerative disc disease-1999/Jaelyn Go dby [employer] APPLICATION DEVELOPER Surgical History Surgery Date(Month/Year) Left ankle surgery x2/ [facility] / with a 3 day stay 1999 Appendectomy/ [facility] / overnigh t stay 2003 Cholecystectomy/ [facility] / overn ight stay 2002 LT Hand Surgery x2/ [facility] / wi th a 3 day stay 1976 Neck (cervical discetomy)Dr. Marc/ [facility] / over night stay 2005 RT Shoulder / [facility] / (OP) 198 2 Tonsillectomy/ [facility] / (OP) 19 66 Tubal abdominal ligation / in [place] / (O P) 1981 Bladder lift / [facility] / Dr. Daniel Crawford / (OP) 2005 Ovari[place] Cyst Rupture/ [facility] A [facility] in [facility] / with a 3-4 day stay 1987 oophorectomy (left)/ [facility] / ( OP) 2005 [place] teeth/ Dr. Hess / (OP) 1976 Hernia repair / [facility] / (OP) 03/14/2021 Hospitalization History Reason Date(Month/Year) Bowel obstruction / [facility] / treated and rel eased 02/2021
--- OUTSIDE RECORDS SUMMARY | 2025-03-14 09:45 | XMS_ITS | Encounter Summary ---
Author Organization [facility] ([place], [place], [place], [place]) Address [address] [place] [address] Care Team Providers Care Alcoholism Worker Name Role Phone Jaelyn Renteria APRN Primary Care Provider [phone] Vanessa Green MD Unavailable Encounter Details Date Type Department Care Team (Late st Contact Info) Description 07/04/2019 Transcribed Document [facility] [place] [address] ProviderLexi MD [address] [place] [address] Social History Tobacco Use Types Packs/Day Years Used Date Smoking Tobacco: Never Assessed Comments Unknown Sex and Gender Information Value Date Recorded Sex Assigned at Not on file Legal Sex Female 2:44 PM CDT Gender Identity Not on file Sexual Orientation Not on file documented as of this encounter Miscellaneous Notes * Cerner Conversion Note - Lexi Vickers MD - 07/04/2019 2:30 PM CORPORATE DIRECTOR OF HUMAN RESOURCES Patient: LILI DAMON Age: 58 Years Sex: Female : 1960 FOLLOWUP DATE OF SERVICE: 07/03/2019 CHIEF COMPLAINT: Mid back pain, low back pain, neck pain, bilateral arm pain. HISTORY OF PRESENT ILLNESS: The patient is a 58-year-old female who returns to the clinic today with a 20-year history significant for mid back pain, low back pain as well as neck pain with radiation into the upper extremities, being equal in severity. The patient states that the pain in the arms is a burning, numbness/tingling sensation. She describes her pain level today as 7-8/10 on the numerical pain scale rating. She is reporting 10% pain relief at this time with the use of Percocet 5/325 mg three times daily dosing. She has concerns about the Percocet. She feels that she is starting to develop nightmares when taking the medication. She has had the same side-effects with Hydrocodone in her past. When we has last seen her in the clinic we were going to look at potential spinal cord stimulator trial for this individual. We had given her information to review. We also had ordered x-rays of the patient's cervical spine in flexion and extension films to evaluate the stability of her hardware. Nursing intake is reviewed and on today's visit this individual has a BP 142/89, heart rate 85, respiratory rate 18, O2 SATs 96% on room air, height 5'5 1/2 , weight 160 lb. HISTORY: Allergies: Codeine, Morphine Sulfate, Benadryl, Neosporin. SOCIAL HISTORY: Marital status: . Current work status: She is disabled. Current tobacco use: Denies. Illicit drug use: Denies. Alcohol use: She describes random use . Caffeine use: Uses daily. Past Medical History: Anemia. Osteoarthritis. Skin cancer. Chickenpox. Depression. Head injury. Gastric esophageal reflux disease. Heart failure. Hyperlipidemia. Obstructive sleep apnea. Migraine headaches. Strokes. Thyroid disease. Past Surgical History: Appendectomy. Cholecystectomy. Oophorectomy/Salpingectomy. Arthroscopic shoulder surgery. Spinal surgery of the cervical spine. Tonsillectomy/Adenoidectomy. Tubal ligation. Open reduction and internal fixation of the left ankle. Carpal tunnel release x2 of the left hand. Bladder tack surgery. Past Family History: Cancer. Lung disease. Migraine headaches. Thyroid disease. Substance abuse. Strokes. Mental illness. Crohn's disease. Colitis. Acid-reflux disease. Depression. REVIEW OF SYSTEMS: The patient's ten system Review of Systems was reviewed and at today's visit this individual has complaints of the following: General: Fatigue and weight gain. Respiratory: Chronic cough, shortness of breath, wheezing. Neurological: Tremors, numbness/tingling. Gastrointestinal: Constipation, nausea, acid-reflux. Musculoskeletal: Joint pain/stiffness, neck pain, back pain, muscle weakness, muscle aches and pains. Cardiovascular: Negative. Psychiatric: Anxiety and depression, changes in sleep. HEENT: Hoarseness. Endocrine: Appetite changes, increased thirst, cold intolerance, hair and skin changes. Hematology: Easy bruising, anemia. Skin: Negative. Genitourinary: Negative. PHYSICAL EXAMINATION: Constitutional: Conversant and well-nourished. Vital signs reviewed today. Integumentary: Deferred. HEENT: Deferred. Neck: Deferred. Chest and Lung: Deferred. Cardiovascular: Deferred. Abdomen: Deferred. Peripheral Vascular: Deferred Neurologic: Deferred. Psychiatric: The patient is alert and oriented to self, time and place today. The patient has a normal mood and affect at today's visit and there is moderate depression on the depression questionnaire that was completed today. Musculoskeletal: Deferred. DIAGNOSTIC STUDIES: Not present. ASSESSMENT: 1. Chronic pain syndrome. 2. Lumbar degenerative disc disease. 3. Lumbar spondylosis. 4. Cervical degenerative disc disease, status post anterior cervical disc fusion and discectomy. PROCEDURE/TEST ORDERED: Not present. CURRENT PLAN: I have gone over the x-rays of the cervical spine, both flexion and extension films that we had done on this individual back on 06/13/2019 and explained the degenerative changes that have occurred above and below her fusion. She does have stability in the fusion at this time. Her JOHNATHAN report was appropriate upon review today. I am going to start this individual on Belbuca 75 mcg films that she can utilize buccally twice daily as well as starting this individual on Lactulose 10 gm/15 mL twice daily for what she described as opioid-induced constipation. Unfortunately, I think some of the opioid-induced constipation may have come from the fact that she had purchased Methadone off the street which she admitted to after we had performed her urine tox screen. I made it very clear to her that I was going to discharge her from the clinic, however, I am going to give her one last chance to redeem herself. I am going to have her undergo a urine tox screen and pill count in seven weeks to see if she is still going to be compliant or noncompliant. We will see her back in the clinic in two months for a followup appointment. We are going to watch this individual very closely. SUMANTH Causey/afua documented in this encounter Plan of Treatment Not on file documented as of this encounter Visit Diagnoses Not on filedocumented in this encounter Care Teams Alcoholism Worker Relationship Specialty Start Date End Date Jaelyn Renteria APRN [address] [place] [address] PCP - General Family Medicine 10/06/22 Vanessa Green MD [address] [place] [phone] [employer] French Teacher Rheumatology 10/06/22 documented as of this encounter
[2025-03-14 10:30] VITALS: PULSE 65; PULSE 68
[2025-03-14] MEDS: ALBUTEROL 0.083% 2.5 MG/3 ML NEB IH (10:30)
== END 2025-03-14 23:59 | disposition home or self-care (01) ==
PROVIDERS: PCP Nurse Practitioner Family; Visit Provider Internal Medicine Pulmonary Disease
DX: J44.9 Chronic obstructive pulmonary disease, unspecified (principal); R94.2 Abnormal results of pulmonary function studies
CPT/HCPCS: 94010; 94618; 94640; 94727; 94729

== ENCOUNTER 2025-05-04 12:14 | Outpatient (CLI) | payer MEDICARE, MEDICAID, SELFPAY ==
--- OUTSIDE RECORDS SUMMARY | 2018-01-11 19:54 | XMS_ITS | Encounter Summary ---
[facility] Address [address] [place] [address] Care Team Providers Care Area Field Person Name Role Phone Kamlesh Abdullahi MD Primary Care Provider [phone] Reason for Referral * Hospital - Outpatient (Routine) - Closed Specialty Diagnoses / Procedures Referred By Patricia neri Referred To Contact Sleep Medicine Diagnoses Obstructive sleep apnea Snoring Excessive daytime sleepiness Sleep talking Procedures Polysomnography 4 or More Parameters Amanuel Elizalde MD [address] [place] [address] 3 [place] [address] Phone: tel: fax: [facility] [address] [place] [address] Phone: tel: Referral ID Status Reason Start Date Expiration Date Visits Re quested Visits Authorized [id number] Closed 12/07/2017 01/11/2018 1 1 Reason for Visit * Hospital - Outpatient (Routine) - Closed Specialty Diagnoses / Procedures Referred By Patricia neri Referred To Contact Sleep Medicine Diagnoses Obstructive sleep apnea Snoring Excessive daytime sleepiness Sleep talking Procedures Polysomnography 4 or More Parameters Amanuel Elizalde MD 793 [facility] [address] [address] Phone: tel: fax: [facility] [address] [place] [address] Phone: tel: Referral ID Status Reason Start Date Expiration Date Visits Re quested Visits Authorized [id number] Closed 12/07/2017 01/11/2018 1 1 Encounter Details Date Type Department Care Team (Latest Contact Info) Description 01/11/2018 7:54 PM EDT Hospital Encounter [facility] [address] [place] [address] Amanuel Elizalde MD 793 [facility] [address] [place] [address] Obstructive sleep apnea; Snoring; Excessive [...] Elizalde MD - 01/12/2018 4:15 PM EDT [facility] Pulmonary, Critical Care, and Sleep Medicine Amanuel Elizalde M.D. 793 [facility] [address] Medical Office [facility] # 3[place] [id number]. POLYSOMNOGRAPHY INTERPRETATION Date of Study: 01/11/2018 Patient [...] a co-existing sleep disorder such as Narcolepsy, SERVICE ATTENDANT Hypersomnolence or Insufficient Sleep Syndrome. To sort [...] feel free to contact the office of [facility] Pulmonary, Critical Care and Sleep Medicine at [phone], if you have any questions. Best regards, This document was electronically signed by Amanuel Elizalde MD January 12, 2018 4:11 PM Procedure Note Amanuel Elizalde MD - 01/12/2018 [facility] Pulmonary, Critical Care, and Sleep Medicine Amanuel Elizalde M.D. 793 [facility] [address] Medical Office Building [address] [id number]. POLYSOMNOGRAPHY INTERPRETATION Date of Study: 01/11/2018 Patient [...] has a co-existing sleep disorder such asNarcolepsy, SERVICE ATTENDANT Hypersomnolence or Insufficient Sleep Syndrome. To sort [...] feel free to contact the [facility] at [phone], if you haveany questions. Best regards, This [...] documented as of this encounter Care Teams Area Field Person Relationship Specialty Start Date End Date Kamlesh Abdullahi MD [address] [place] [address] PCP - General Internal Medicine 06/21/17 01/15/19 documented as of this encounter
--- OUTSIDE RECORDS SUMMARY | 2018-03-10 12:00 | XMS_ITS | Encounter Summary ---
[facility] [address] [place] [address] Care Team Providers Care Menagerie Caretaker Name Role Phone Kamlesh Abdullahi MD Primary Care Provider [phone] Reason for Visit * Hospital - Outpatient (Routine) - Closed Specialty Diagnoses / Procedures Referred By Patricia neri Referred To Contact Sleep Medicine Diagnoses Dystonia Partial symptomatic epilepsy with complex partial seizures, not intractable, without status epilepticus Procedures EEG EEG Awake or Asleep Routine Regan Bruno MD Phone: tel: fax: [facility] [address] [place] [address] Phone: tel: Referral ID Status Reason Start Date Expiration Date Visits Re quested Visits Authorized [id number] Closed 02/28/2018 02/28/2019 1 1 Encounter Details Date Type Department Care Team (Latest Contact Info) Description 03/10/2018 12:00 PM EDT Hospital Encounter [facility] [address] [place] [address] Regan Bruno MD [address] [place] [address] Dystonia; Partial symptomatic epilepsy with complex partial [...] documented as of this encounter Care Teams Menagerie Caretaker Relationship Specialty Start Date End Date Kamlesh Abdullahi MD [address] [place], [place] [phone] PCP - General Internal Medicine 06/21/17 01/15/19 documented as of this encounter
--- OUTSIDE RECORDS SUMMARY | 2025-01-15 09:45 | XMS_ITS ---
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 Refer patient to NS.- waiting to reschedule appt. 3. Follow up in 2 months 4. refill tizanidine 4mg TID Pending Test Test Name Order Date Urine Test ANALYZER 01/15/2025 Next Appt Details Follow Up: 2 Months, Reason: Provider Name:Red cooney, 06/08/2025 02:15:00 PM, [address], [address], [place], [address], Procedure Notes * Category Sub-Category Detail Notes PROVIDER ENCOUNTER AND OVERSIGHT Consult Performed By: Cristina-Lotus MIRAMONTES 11/20/2024 2:58:33 PM > collaborated treatment plan with Red vallejo M.D., supervising physician who was present in office during consultation Progress Notes * Diamond LOUIEDOB: [birth year] (64 yo F)Acc No.[id number]:01/15/2025 FollowUP Patient: Chinedu LEMUS Diamond Provider: Tianna Tamayo II, M.D. :1960 A ge:64 Y S ex:Female Date:01/15/2025 Address:[address] [place], [place] [phone] Subjective: * Chief Complaints: * 1 . [...] of a left asymmetric disc bulge producing hrpqustl-vx-pjsaiu left neuroforaminal stenosis and subarticular recess narrowing. [...] with no relief A shira Therapy- At [facility] 1994 which helped after her stroke [...] History: L eft ankle surgery x2/ [facility] / with a 3 day stay 1999, Appendectomy/ [facility] / overnight stay 2003, Cholecystectomy/ [facility] / overnight stay 2002, LT Hand Surgery x2/ [facility] / with a 3 day stay 1976, Neck (cervical discetomy)Dr. Marc/ [facility] / over night stay 2004, RT Shoulder / [facility] / (OP) 1981, Tonsillectomy/ [facility] / (OP) 1965, Tubal abdominal ligation / in [place] / (OP) 1981, Bladder lift / [facility] / Dr. Alicia Crawford / (OP) 2005, Ovarien Cyst Rupture/ [facility] in [facility] / with a 3-4 day stay 1987, oophorectomy (left)/ [facility] / (OP) 2005, [place] teeth/ Dr. Hess / (OP) 1976, Hernia repair / [facility] / (OP) 03/14/2021. * Hospitalization/Major Diagno [...] * Vitals: * Examination: G eneral Examination: Nurse/Merchandise Carrier: Bethany gonzalez(MA-Ray)[place] 11/20/2024 2:29:18 PM > . [...] . Assessment: * Assessment: 1. 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 c ollaborated treatment plan with Tianna Tamayo M.D., supervising physician who was present in office during consultation. * Follow Up: 2 Months * * Electronic signature of Nigel Tamayo II, M.D. on 05/04/2025 at 11:18 AM CDT Sign off status: Pending * Provider: Tianna Tamayo II, M.D. Date: 0 01/15/2025 Generated for Bacilio anna/Sajan/eTransmitting on: 0 05/04/2025 11:18 AM CDT History and Physical Notes * [...] of a left asymmetric disc bulge producing vmtchjrb-ax-tuhbbl left neuroforaminal stenosis and subarticular recess narrowing. Far left lateral component encroaches upon and may abut or contact the exiting left L5 nerve root PHYSICAL/AQUA THERAPY/DME/OT HER HISTORY: Physical Therapy- 2018 with no relief Aqua Therapy- At [facility] 1994 which helped after her stroke [...] leads removed, tip intact. Sterile dressing applied Nurse/Merchandise Carrier: [place] Graham (MA-Lex) 11/20/2024 2:29:18 PM > [...]
--- OUTSIDE RECORDS SUMMARY | 2025-03-27 10:15 | XMS_ITS ---
Author Organization [facility] ex Address [address] [place] [address] Care Team Providers Care Redevelopment Manager Name Role Phone Red Tamayo II Unavailable [...] Diagnosis [facility] [address] [place] [address] 03/27/2025 Red Tamayo Other care home (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 Z79.899 ; lumbar spondylosis M47.816 ; cervical spondylosis M47.812 ; Postlaminectomy syndrome, not elsewhere classified M96.1 and Complex regional pain syndrome I of right lower limb G90.521 Assessments Encounter Date Diagnosis (ICD Code) Assessment Notes Treatment Notes Treatment Clinical Notes Section Notes 03/27/2025 Other care home (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 (ICD-10 - Z79.899) 03/27/2025 [...] 30 days Treatment Notes Assessment Notes Other care home (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 03/27/2025 1. Refill percocet 7.5/325mg TID 2. Refill tizanidine 4mg TID 3. Start Lidocaine patch daily as directed 4. Follow up in 1 month for MD Next Appt Details Follow Up: 2 Months, Reason: Provider Name:Red cooney, 06/08/2025 02:15:00 PM, [address] [facility], [address], [address], Procedure Notes * Category Sub-Category Detail Notes PROVIDER ENCOUNTER AND OVERSIGHT Consult Performed By: Nikole SANTOS)Magali 03/27 03:25:49 PM EDT > collaborated treatment plan with Red vallejo M.D., supervising physician who was present in office during consultation Progress Notes * Diamond LOUIEDOB: [birth year] (64 yo F)Acc No.[id number]:03/27/2025 FollowUP Patient: Diamond JUAREZ Provider: Tianna Tamayo II, M.D. :1960 A ge:64 Y S ex:Female Date:03/27/2025 Address:[address] [place], [place] [id number] Subjective: * Chief Complaints: * 1 . [...] of a left asymmetric disc bulge producing fevqbtzf-et-wznmzu left neuroforaminal stenosis and subarticular recess narrowing. [...] no relief A shira Therapy- At [facility] 1994 which helped after her stroke 0 [...] a nxiety diagnosed managed by Jaelyn Godby OPERATIONS CLERK , [facility] , [facility] , COPD diagnosed 1979 managed by Jaelyn Godby OPERATIONS CLERK , fibromyalgia diagnosed 1989 [facility] , depression [facility] , seizures diagnosed 2016 managed by Jaelyn Godby OPERATIONS CLERK , Stroke diagnosed 1993 managed by Jaelyn Godby OPERATIONS CLERK , Hypothyroidism diagnosed 1979 managed by Jaelyn Godby OPERATIONS CLERK , scoliosis diagnosed 1979 managed by Jaelyn Godby OPERATIONS CLERK , Degenerative disc disease diagnosed 1999 managed by Jaelyn Godby OPERATIONS CLERK. * Surgical History: L eft ankle surgery x2/ [facility] / with a 3 day stay 1999, Appendectomy/ [facility] / overnight stay 2003, Cholecystectomy/ [facility] / overnight stay 2002, LT Hand Surgery x2/ [facility] / with a 3 day stay 1976, Neck (cervical discetomy)Dr. Marc/ [facility] / over night stay 2004, RT Shoulder / [facility] / (OP) 1981, Tonsillectomy/ [facility] / (OP) 1965, Tubal abdominal ligation / in [place] / (OP) 1981, Bladder lift / [facility] / Dr. Alicia Crawford / (OP) 2005, Ovarien Cyst Rupture/ [facility]yatta A [facility] in [facility] / with a 3-4 day stay 1987, oophorectomy (left)/ [facility] / (OP) 2005, [place] teeth/ Dr. Hess / (OP) 1976, Hernia repair / [facility] / (OP) 03/14/2021. * Hospitalization/Major Diagno [...] 145, BMI:24.13Index. * Examination: G eneral Examination: Nurse/Sba Underwriter: Juan hess (MA-Ray) Rianna 03/27/2025 02:44:00 PM [...] . Assessment: * Assessment: 1. O ther care home (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 - Z79.899 (Primary) [...] 03/27/2025 03:10: 19 PM EDT >Nikole ( MARKETING AND PUBLIC RELATIONS MANAGER-RAY)Magali 03/27/2025 03:25:25 PM EDT > Appropriate. Do not send for confirmation Notes: 03/27/2025 1. Refill percocet 7.5/325mg TID 2. Refill tizanidine 4mg TID 3. Start Lidocaine patch daily as directed 4. Follow up in 1 month for MD?? * Procedures: Chelsi SMITH ENCOUNTER AND OVERSIGHT: Consult Performed By: Austin briseno ( MARKETING AND PUBLIC RELATIONS MANAGER-RAY)Magali 03/27/2025 03:25:49 PM EDT >. c ollaborated treatment plan with Tianna Tamayo M.D., supervising physician who was present in office during consultation. * Follow Up: 2 Months * * Electronically signed by Theresa Agustin ( MARKETING AND PUBLIC RELATIONS MANAGER-RAY) RI on 03/27/2025 at 03:36 PM CDT Sign off status: Completed true * Provider: Tianna Tamayo II, M.D. Date: 0 03/27/2025 Generated for Bacilio anna/Sajan/Kimsmitting on: 0 05/04/2025 11:18 AM CDT History [...] of a left asymmetric disc bulge producing xgpxrdrl-jq-nzmiku left neuroforaminal stenosis and subarticular recess narrowing. Far left lateral component encroaches upon and may abut or contact the exiting left L5 nerve root PHYSICAL/AQUA THERAPY/DME/OT HER HISTORY: Physical Therapy- 2019 with no relief Aqua Therapy- At [facility] 1994 which helped after her stroke 01/30/2025 [...] leads removed, tip intact. Sterile dressing applied Nurse/Sba Underwriter: Mario Jhaveri)Jay 03/27/2025 02:44:00 PM EDT > [...]
--- OUTSIDE RECORDS SUMMARY | 2025-04-23 10:45 | XMS_ITS ---
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 Refill Percocet 7.5/325mg TID 2. Refill Tizanidine 4mg TID 3. Refill Lidocaine patch daily as directed 4. Follow up in 1 month for MD Pending Test Test Name Order Date Urine Test ANALYZER 04/23/2025 Next Appt Details Follow Up: 2 Months, Reason: Provider Name:Red cooney, 06/08/2025 02:15:00 PM, [address] [facility], [address], [address], Progress Notes * Diamond LOUIEDOB: [birth year] (64 yo F)Acc No.[id number]:04/23/2025 Patient: Chinedu Diamond LEMUS Provider: Humera Albarran MD :1960 A ge:64 Y S ex:Female Date:04/23/2025 Address:[address] [place] [address] [place], [id number] Subjective: * Chief Complaints: * 1 . [...] of a left asymmetric disc bulge producing llylqjkm-oi-nxusqf left neuroforaminal stenosis and subarticular recess narrowing. [...] with no relief A shira Therapy- At [facility] 1994 which helped after her stroke 0 [...] History: L eft ankle surgery x2/ [facility] / with a 3 day stay 1999, Appendectomy/ [facility] / overnight stay 2003, Cholecystectomy/ [facility] / overnight stay 2002, LT Hand Surgery x2/ [facility] / with a 3 day stay 1976, Neck (cervical discetomy)Dr. Marc/ [facility] / over night stay 2004, RT Shoulder / [facility] / (OP) 1981, Tonsillectomy/ [facility] / (OP) 1965, Tubal abdominal ligation / in [place] / (OP) 1981, Bladder lift / [facility] / Dr. Alicia Crawford / (OP) 2005, Ovarien Cyst Rupture/ [facility] A [facility] in [facility] / with a 3-4 day stay 1987, oophorectomy (left)/ [facility] / (OP) 2005, [place] teeth/ Dr. Hess / (OP) 1976, Hernia repair / [facility] / (OP) 03/14/2021. * Hospitalization/Major Diagno [...] * Vitals: * Examination: G eneral Examination: Nurse/Reports Analysis Manager: Juan Jean-BaptisteMA-Ray)Rianna 03/27/2025 02:44:00 PM EDT >. [...] . Assessment: * Assessment: 1. O ther child support agent (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 - Z79.899 (Primary) 2 [...] Electronic signature of Kj Albarran M.D. on 05/04/2025 at 11:17 AM CDT Sign off status: Pending * Provider: Humera Albarran MD Date: 0 04/23/2025 Generated for Bacilio anna/Sajan/Juan on: 0 05/04/2025 11:17 AM CDT History and Physical Notes * [...] of a left asymmetric disc bulge producing xktwfwxk-ef-tzwdmc left neuroforaminal stenosis and subarticular recess narrowing. Far left lateral component encroaches upon and may abut or contact the exiting left L5 nerve root PHYSICAL/AQUA THERAPY/DME/OT HER HISTORY: Physical Therapy- 2018 with no relief Aqua Therapy- At [facility] 1994 which helped after her stroke 01/30/2025 [...] leads removed, tip intact. Sterile dressing applied Nurse/Reports Analysis Manager: Jay Martin (MA-Lex) 03/27/2025 02:44:00 PM EDT [...]
--- OUTSIDE RECORDS SUMMARY | 2025-04-26 10:30 | XMS_ITS ---
Author Organization [facility] Address [address] [place] [address] Care Team Providers Care Hard Rock Miner Name Role Phone Red Tamayo II Unavailable [...] Diagnosis [facility] [address] [place] [address] 04/26/2025 Red Tamayo Other half-way (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 Z79.899 ; lumbar spondylosis M47.816 ; cervical spondylosis M47.812 ; Postlaminectomy syndrome, not elsewhere classified M96.1 and Complex regional pain syndrome I of right lower limb G90.521 Assessments Encounter Date Diagnosis (ICD Code) Assessment Notes Treatment Notes Treatment Clinical Notes Section Notes 04/26/2025 Other half-way (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 (ICD-10 - Z79.899) 04/26/2025 [...] 30 days Treatment Notes Assessment Notes Other intermodal customer service (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 04/26/2025 1. Refill percocet 7.5/325mg TID 2. Refill tizanidine 4mg TID 3. Refill Lidocaine patch daily as directed 4. Order TENS unit 5. Follow up in 2 months Next Appt Details Follow Up: 2 Months, Reason: Provider Name:Red cooney, 06/08/2025 02:15:00 PM, [address], [address], [address], Procedure Notes * Category Sub-Category Detail Notes PROVIDER ENCOUNTER AND OVERSIGHT Consult Performed By: Nikole Jean-Baptiste NP-Magali MIRAMONTES 03/27 03:25:49 PM EDT > collaborated treatment plan with Red vallejo M.D., supervising physician who was present in office during consultation Progress Notes * Diamond LOUIEDOB: [birth year] (64 yo F)Acc No.[id number]:04/26/2025 FollowUP Patient: Arturo JUAREZca Provider: Tianna Tamayo II, M.D. :1960 A ge:64 Y S ex:Female Date:04/26/2025 Address:[address] [place] [address] [place] Subjective: * Chief Complaints: [...] of a left asymmetric disc bulge producing crthrree-mv-wtevwr left neuroforaminal stenosis and subarticular recess narrowing. [...] 2019 with no relief Aqua Therapy- At [facility] 1994 which helped after her stroke [...] [facility] / with a 3 day stay 1999Appendectomy/ [facility] / overnight stay 2004Cholecystectomy/ [facility] / overnight stay 2003[facility] a [facility] 1976Tre (cervical discetomy[facility] 2005RT Shoulder / [facility] / (OP) 1982[facility] 1966Tubal abdominal ligation / in [place] / (OP) 1981[facility] Alic[facility] Crawford / (OP) 2005Ovarien Cyst Rupture/ [facility] / with a 3-4 day stay 1987oophorectomy (left)/ [facility] / (OP) 2005Wisdom teeth/ Dr. Hess / (OP) 1976Hernia repair / [facility] / (OP) 03/14/2021 * Hospitalization/Major Diagno stic Procedure: B owel obstruction / / treated and released oughing/ [facility]/1 day stay 01/2025 * Family History: [...] 145, BMI:24.13Index. * Examination: G eneral Examination: Nurse/Crimping Press Operator: Obey Blackman (MA LEX) 04/26/2025 02:31:49 PM [...] . Assessment: * Assessment: 1. O ther half-way (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 - Z79.899 (Primary) 2 [...] Date: 04/26/2025 Generated for Bacilio anna/Sajan/Juan on: 05/04/2025 11:17 AM CDT History and Physical [...] of a left asymmetric disc bulge producing uunohsqw-qm-wbgman left neuroforaminal stenosis and subarticular recess narrowing. Far left lateral component encroaches upon and may abut or contact the exiting left L5 nerve root PHYSICAL/AQUA THERAPY/DME/OT HER HISTORY: Physical Therapy- 2018 with no relief Aqua Therapy- At [facility] 1994 which helped after her stroke [...] leads removed, tip intact. Sterile dressing applied Nurse/Crimping Press Operator: Tyler Douglas (MA LEX) 04/26/2025 02:31:49 PM [...]
--- OUTSIDE RECORDS SUMMARY | 2025-05-04 12:17 | XMS_ITS | Clinical Summary ---
Author Organization [facility] Address [address] [place] [address] Care Team Providers Care Stage Technician Name Role Phone Red Tamayo MD Primary Care Provider [phone] Allergies Active Allergy Reactions Criticality Noted Date Comments Allantoin-Pramoxine Rash Low 12/16/2012 Zolpidem Tartrate Unknown - Low Severity 03/09/2020 Bee Venom Shortness Of Breath High 02/27/2017 Celecoxib Unknown - Low Severity 11/11/2021 Chocolate Hives 06/19/2018 Codeine Shortness Of Breath,Anaphylaxis High 12/16/2012 And rash Meperidine Unknown - Low Severity 11/11/2021 Hydromorphone Unknown - High Severity 06/25/2022 Diphenhydramine Anxiety Low 12/16/2012 Fentanyl Unknown - Low Severity 03/09/2020 Cyclobenzaprine Unknown - Low Severity 03/09/2020 Gabapentin Unknown (See Comments) Ziprasidone Hcl Unknown - Low Severity 03/09/2020 Ibuprofen Other (See Comments) Medium 09/13/2019 'my lips get tingly and numb Lurasidone Hcl Unknown - Low Severity 03/09/2020 Eszopiclone Unknown - Low Severity 11/11/2021 Meclizine Other (See Comments) 03/27/2022 Restless arm and leg Methadone Anxiety Low 03/09/2020 Meloxicam Unknown - Low Severity 03/09/2020 Morphine Shortness Of Breath,Anaphylaxis High 12/16/2012 Miconazole Itching,Rash High Bacitracin-Polymyxin B Unknown - Low Severity 11/11/2021 Neomycin-Bacitracin Zn-Polymyx Rash Low 02/27/2017 Other Anxiety Low 11/27/2020 Antihistamines Peanut Oil Shortness Of Breath High 03/06/2013 Prednisone Other (See Comments) Low 04/14/2018 Induces kai Desvenlafaxine Anxiety Low 02/28/2019 Fluoxetine Hcl Anxiety Low 03/09/2020 Quetiapine Mental Status Change 10/14/2021 Chlorpromazine Unknown - Low Severity 03/09/2020 Topiramate Anxiety Low 03/09/2020 Tramadol Hcl Anxiety Low 03/09/2020 Hydrocodone-Acetaminophen Unknown - Low Severity 03/09/2020 Cariprazine Anxiety Low 08/24/2018 Medications * This document contains information received from the source organization and may not represent a complete record from that organization. EPINEPHrine (EPIPEN) 0.3 MG/0.3ML solution auto-injector injection EpiPen 0.3 MG/0.3ML JORDEN; Patient Sig: EpiPen 0.3 MG/0.3ML JORDEN USE DIRECTED.; 1; 6; 06-Mar-2013; Active 03/06/20 13 Active Unable to find 2 each 2 (Two) Times a Day. doTERRA MICRO PLEX VMz Active Unable to find 2 each 2 (Two) Times a Day. doTERRA xEO JADA Active Unable to find 1 each 2 (Two) Times a Day. DIGESTZEN TerraZyme Active Unable to find 4 each by Other route Every Morning. doTERRA DDR PRIME ESSENTIAL OIL Active Unable to find 2 each Every Morning. doTerra Zendocrine Active Unable to find 1 each 2 (Two) Times a Day. doTERRA MITOMAX2 Active Unable to find 1 each 1 (One) Time. DDR Prime Active diazePAM (VALIUM) 5 MG tablet Take 1 tablet by mouth 3 (Three) Times a Day. 0 01/12/20 19 Active buPROPion XL (WELLBUTRIN XL) 150 MG 24 hr tablet Take 1 tablet by mouth Every Morning. 2 12/20/19 19 Active lidocaine (LIDODERM) 5 % Remove & Discard patch within 12 hours or as directed by 30 patch 5 07/13/20 19 Active MUCUS RELIEF 600 MG 12 hr tablet Take 1 tablet by mouth 2 (Two) Times a Day. 10/09/19 20 Active SUMAtriptan (IMITREX) 6 MG/0.5ML injection Inject 0.5ml subcutaneously AT ONSET of HEADACHE, MAY REPEAT DOSE in ONE HOUR If needed. DO not exceed two doses in 24 hours 10/17/19 Active B-D 3CC LUER-ISAURA SYR 25GX1 25G X 1 3 ML misc USE with sumatriptan 10/17/19 Active oxyCODONE-acetamin ophen (PERCOCET) 7.5-325 MG per tablet Take 1 tablet by mouth 3 (Three) Times a Day. 11/23/19 Active Narcan 4 MG/0.1ML nasal spray Rogers Nasal Use as directed in case of overdose 08/20/20 Active vitamin D (ERGOCALCIFEROL) 1.25 MG (59724 UT) capsule capsule Take 1 capsule by mouth 1 (One) Time Per Week. 11/19/19 Active Diclofenac Sodium (VOLTAREN) 1 % gel gel APPLY 2 GRAMS TO AFFECTED AREA 4 TIMES DAILY. DO NOT USE MORE THAN 8 GRAMS DAILY TO ANY ONE JOINT 11/21/19 Active acyclovir (ZOVIRAX) 400 MG tablet TAKE ONE TABLET BY MOUTH EVERY 8 HOURS FOR 10 DAYS THEN decrease TO twice A DAY 03/09/20 Active Synthroid 50 MCG tablet Take 1 tablet by mouth Daily. 03/11/20 Active fenofibrate (TRICOR) 145 MG tablet Take 1 tablet by mouth Daily. 03/06/20 Active venlafaxine XR (EFFEXOR-XR) 37.5 MG 24 hr capsule Take 1 capsule by mouth Daily. 06/19/20 Active benzonatate (TESSALON) 100 MG capsule Take 1 capsule by mouth 3 (Three) Times a Day As Needed. 04/22/20 Active Rimegepant Sulfate (Nurtec) 75 MG tablet dispersible tabletIndications: Intractable migraine without aura and with status migrainosus Place 1 tablet under the tongue 1 (One) Time As Needed (migraine) for up to 1 dose. 8 tablet 5 06/25/20 22 Active promethazine-dextr omethorphan (PROMETHAZINE-DM) 6.25-15 MG/5ML syrup Take 2.5 mL by mouth 4 (Four) Times a Day As Needed for Cough. 40 mL 07/05/20 22 Active TiZANidine (ZANAFLEX) 2 MG capsule Take 1 capsule by mouth 3 (Three) Times a Day As Needed for Muscle Spasms. 15 capsule 10/14/19 Active ondansetron ODT (ZOFRAN-ODT) [address] 1 tablet on the tongue Every 6 (Six) Hours As Needed for Nausea or Vomiting. 12 tablet 02/23/20 Active dicyclomine (BENTYL) 10 MG capsuleIndications :Lower abdominal pain TAKE ONE CAPSULE BY MOUTH TWICE DAILY NEEDED FOR abdominal cramping (this can worsen constipation) 30 capsule 1 05/20/20 23 Active clonazePAM (KlonoPIN) 0.5 MG tabletIndications: Valium withdrawal without complication Take 1 tablet by mouth 2 (Two) Times a Day As Needed for Anxiety for up to 3 days. 6 tablet 06/08/20 Active docusate sodium (COLACE) 100 MG capsuleIndications :Constipation, unspecified constipation type TAKE ONE CAPSULE BY MOUTH TWICE DAILY 60 capsule 3 07/05/20 Active cyclobenzaprine (FLEXERIL) 5 MG tablet Take 1 tablet by mouth 3 (Three) Times a Day As Needed for Muscle Spasms. 12 tablet 07/07/20 Active Active Problems Problem Noted Date Diagnosed Date Other hyperlipidemia 05/27/2023 Lower abdominal pain 03/16/2023 Constipation 03/16/2023 Nausea 03/16/2023 Pharyngoesophageal dysphagia 03/16/2023 Fatty (change of) liver, not elsewhere classifie d 03/16/2023 Anginal equivalent 11/27/2020 SMILEY (dyspnea on exertion) 11/27/2020 Abnormal ECG 11/27/2020 Degenerative disc disease, lumbar 04/21/2018 Neck pain, acute 02/03/2018 Chronic left-sided low back pain without sciatic a 02/03/2018 Seizure disorder 11/01/2017 Degenerative disc disease, cervical 10/11/2017 Dizziness 10/11/2017 Dystonia 08/05/2017 Acute pharyngitis 08/05/2017 Acute upper respiratory infection 08/05/2017 Asthma 08/05/2017 Attention deficit hyperactivity disorder 017 Bipolar disorder 08/05/2017 Fibromyalgia 08/05/2017 GLADIS (obstructive sleep apnea) 08/05/2017 Acquired hypothyroidism 08/05/2017 Immunizations Immunization Administration Dates Next Due -influenza Vac Quardvalent Preservativ 016,06/13/2014 Fluzone >6mos 05/13/2012 Influenza Seasonal Injectable 06/12/2015 Pneumococcal Polysaccharide (PPSV23) 06/12/2015, 01/02/2015 Tdap 03/06/2017 Family History Medical History Relation Name Comments Thyroid disease Cousin s/p thyroide ctomy Heart attack Father Lung cancer Mother Thyroid disease Paternal Aunt Colon cancer Neg Hx Relation Name Status Comments Cousin Father Mother Paternal Aunt Social History Tobacco Use Types Packs/Day Years [...] Sign Reading Time Taken Comments Blood Pressure 112/73 07/07/2023 9:00 AM EST Pulse 70 07/07/2023 9:00 AM EST Temperature 36.8 C (98.3 F) 07/07/2023 8:33 AM EST Respiratory Rate 20 07/07/2023 8:33 AM EST Oxygen Saturation 98% 07/07/2023 9:00 AM EST Inhaled Oxygen Concentration - - Weight 68.5 kg (151 lb) 07/07/2023 8:33 AM EST Height 165.1 cm (5' 5 ) 07/07/2023 8:33 AM EST Body Mass Index 25.13 07/07/2023 8:33 AM EST Plan of Treatment Health Maintenance Due Date Last Done Comments DXA SCAN 1960 COLOGUARD 12/03/2004 COLON CANCER SCREENING 5 YEA R SIGMOIDOSCOPY 12/03/2004 CT COLONOGRAPHY 12/03/2004 FECAL OCCULT BLOOD TEST 12/03/2004 FIT Testing (1 year) 12/03/2004 ZOSTER VACCINE (1 of 2) 12/03/2009 Pneumococcal Vaccine 50+ (2 of 2 - PCV) 06/12/2016 06/12/2015, 06/12/2015, 01/02/2015 ANNUAL PHYSICAL 12/23/2016 PT PLAN OF CARE 01/26/2018 10/28/2017, 10/19/2017 LIPID PANEL 08/06/2018 08/06/2017 MAMMOGRAM 12/27/2020 12/27/2018, 11/28 (Declined) COVID-19 Vaccine (1 - 2023-2 5 season) 2025 INFLUENZA VACCINE 05/30/2025 06/02/2018 (De clined), 08/05/2017 (Declined), 07/22/2016, Additional history exists COLONOSCOPY 08/05/2026 08/05/2016, 11/29, 12/19/2012 COLORECTAL CANCER SCREENING 08/05/2026 TDAP/TD VACCINES (2 - Td or Tdap) 03/06/2027 017 HEPATITIS C SCREENING Completed 08/06/2017 Procedures Procedure Name Priority Date/Time Associated Diagnosis Comments MAMMO SCREENING DIGITAL TOMOSYNTHESIS BILATERAL W CAD Routine 12/27/2018 10:46 AM EDT Screening breast examination LIPID PANEL Routine 08/06/2017 9:40 AM EST GLADIS (obstructive sleep apnea) Acquired hypothyroidism H/O exposure to potentially hazardous body fluids, presenting hazards to health Routine general medical examination at a health care facility HEPATITIS PANEL, ACUTE Routine 7 9:40 AM EST GLADIS (obstructive sleep apnea) Acquired hypothyroidism H/O exposure to potentially hazardous body fluids, presenting hazards to health Routine general medical examination at a health care facility from Last 3 Months or Most Recently Relevant to Health Maintenance Results * Mammo Screening Digital Tomosynthesis Bilateral With CAD (12/27/2018 10:46 AM EDT) Anatomical Region Laterality Modality Breast N/A Mammography 12/27/2018 11:4 7 AM EDT Impressions 12/27/2018 11:47 AM EDT BI-RADS CATEGORY: 2 , BENIGN FINDING(S). RECOMMENDATIONS: Annual screening mammogram. NOTES: Mammography does not detect approximately 10-15% of breast cancers. Physical examination of the breasts by a physician and regular monthly breast self examinations are integral parts of breast cancer screening. A normal mammogram does not exclude breast cancer if there is an abnormal finding on physical examination. When clinically indicated, a biopsy should not be postponed because of a normal mammogram report. [place]. [address] NOTE: If a biopsy is performed on this patient, a copy of the pathology report would be appreciated. This report was finalized on 12/27/2018 11:47 AM by Nancy Lehman M.D.. Narrative 12/27/2018 11:47 AM EDT EXAMINATION: MAMMO SCREENING DIGITAL TOMOSYNTHESIS BILATERAL W CAD- CLINICAL INDICATION: SCREENING; Z12.31-Encounter for screening mammogram for malignant neoplasm of breast TECHNIQUE: Bilateral CC and MLO views were obtained with both 2-D and 3-D acquisitions. The study was read with the assistance of CAD. COMPARISON: 10/17/2010. FINDINGS: There are scattered areas of fibroglandular density. A coarse calcification is noted in the anterior left breast. There are no suspicious masses, areas of architectural distortion or clustered microcalcifications. Shannon Campbell WAITER IMG MAMMOGRAPHY ORDERABL ES Final Result * Hepatitis panel, acute (08/06/2017 9:40 AM EST) Pathologist [facility] Hep A IgM Negative Negative 08/10/2017 5:11 AM EST [facility] Hepatitis B Surface Ag Negative Negative 08/10/2017 5:11 AM EST [facility] Hep B Core IgM Negative Negative 08/10/2017 5:11 AM EST [facility] Hep C Virus Ab <0.1 0.0 - 0.9 s/co ratio 08/10/2017 5:11 AM EST [facility] Comment: Negative: < 0.8 Indeterminate: 0.8 - 0.9 Positive: > 0.9 The CDC recommends that a positive HCV antibody result be followed up with a HCV Nucleic Acid Amplification test (063019). Blood Venipuncture / Unknown 08/06/2017 9:40 AM EST 08/06/2017 10:11 AM EST Narrative [facility] - 08/10/2017 5:11 AM EST Performed at: - [address] [id number] Loss Prevention Officer: Costa Munoz PhD, Phone: [phone] us Kamlesh Abdullahi MD LAB BLOOD ORDERABLES Final Re sult [address] [address], * (ABNORMAL) Lipid Panel (08/06/2017 9:40 AM EST) Pathologist [facility] Total Cholesterol 234(H) 0 - 199 mg/dL 08/06/2017 10:31 AM EST [facility] Triglycerides 97 <150 mg/dL 08/06/2017 10:31 AM EST [facility] HDL Cholesterol 61(H) 40 - 60 mg/dL 08/06/2017 10:31 AM EST [facility] LDL Cholesterol 154(H) 0 - 99 mg/dL 08/06/2017 10:31 AM EST [facility] VLDL Cholesterol 19.4 mg/dL 12/08/20 17 10:31 AM EST [facility] LDL/HDL Ratio 2.52 08/06/2017 10:31 AM EST [facility] Blood Venipuncture / Unknown 08/06/2017 9:40 AM EST 08/06/2017 10:11 AM EST Narrative [facility] - 08/06/2017 10:31 AM EST Reference ranges for triglycerides, VLDL cholesterol, LDL cholesterol, and HDL cholesterol are not true population normal ranges but are threshold levels for increased risk of coronary artery disease established by ATP III guidelines from the National Cholesterol Education Program. us Kamlesh Abdullahi MD LAB BLOOD ORDERABLES Final Re sult [facility]
[address] [place] [address], from Last 3 Months or Most Recently Relevant to Health Maintenance Additional Health Concerns Infection Onset Date Last Indicated COVID (History) 03/11/2021 03/11/2021 Insurance MEDICAID [place] Advance Directives Documents on File Type Date Recorded Patient Social Service Technician Expl anation PATIENT ADVANCE DIRECTIVES - SCAN 03/17/2023 3:46 PM PATIENT ADVANCE DIRECTIVES, [facility], 06/13/2017 PATIENT ADVANCE DIRECTIVES - SCAN 03/17/2022 12:56 PM ADVANCE DIRECTIVE PATIENT ADVANCE DIRECTIVES - SCAN 02/13/2022 10:35 AM ADVANCE DIRECTIVE PATIENT ADVANCE DIRECTIVES - SCAN 03/05/2021 10:34 AM PATIENT ADVANCE DIRECTIVE, [facility], 06/13/2017 PATIENT ADVANCE DIRECTIVES - SCAN 11/27/2020 8:49 AM Care Teams Stage Technician Relationship Specialty Start Date End Date Red Tamayo MD [address] [place] [address] PCP - General Pain Medicine 12/29/23
--- OUTSIDE RECORDS SUMMARY | 2025-05-04 12:18 | XMS_ITS | Encounter Summary ---
Author Organization [facility] ([place], [place], [place], [place]) Address [address] [place] [address] Care Team Providers Care Tire Builder Heavy Service Name Role Phone Jaelyn Renteria APRN Primary Care Provider [phone] Vanessa Green MD Unavailable Encounter Details Date Type Department Care Team (Late st Contact Info) Description 07/04/2019 Transcribed Document [facility] [place] [facility] [place] [address] ProviderLexi MD [address] [place] [address] Social History Tobacco Use Types Packs/Day [...] Lexi Vickers MD - 07/04/2019 2:30 PM TOBACCO BUYER Patient: LILI DAMON Age: 58 Years Sex: [...] on filedocumented in this encounter Care Teams Tire Builder Heavy Service Relationship Specialty Start Date End Date Jaelyn Renteria APRN [address] [place] [address] PCP - General Family Medicine 10/06/22 Vanessa Green MD [address] [place] [phone] Social Worker Psychiatric Rheumatology 10/06/22 documented as of this encounter
--- OUTSIDE RECORDS SUMMARY | 2025-05-04 12:18 | XMS_ITS | Clinical Summary ---
Author Organization [employer] ([place], [place], [place], [place]) Address [address] [place] [address] Care Team Providers Care Assistant Professor Of Dietetics Name Role Phone Jaelyn Renteria APRN Primary Care Provider Vanessa Green MD Unavailable Allergies Active Allergy [...] High 12/16/2012 Other reaction(s): Confusion, Flushing, Hallucinations Lmqdsvxq-Tsddnscatm-Kxn ymyxin Itching High 10/07/2022 Other Anxiety Low [...] Date Pj rded Speak language other than Albanian at home Not on file 09/11/2023 Want [...] - 1-dose 75+ series) 12/03/2034 [place] [address] [place] Care Teams Assistant Professor Of Dietetics Relationship Specialty Start Date End Date Jaelyn Renteria, BAG TESTER [address] [place] [address] PCP - General Family Medicine 10/06/22 Vanessa Green MD [address] [place] [phone] Adjusto Writer Operator Rheumatology 10/06/22
--- OUTSIDE RECORDS SUMMARY | 2025-05-04 12:18 | XMS_ITS | Encounter Summary ---
Author Organization [employer] ([place], [place], [place], [place]) Address [address] [place] [address] Care Team Providers Care Integration Lead Name Role Phone Jaelyn Renteria APRN Primary Care Provider [phone] Vanessa Green MD Unavailable Encounter Details Date Type Department Care Team (Late st Contact Info) Description 06/10/2019 Transcribed Document [facility] [place] [place] Family [facility] [place] [address] ProviderLexi MD [address] [place] [address] Social History Tobacco Use Types Packs/Day [...] constant. Heat therapy is beneficial. She takes ulfc-mty-ffcbxhx Tylenol and ibuprofen. She has had his [...] weeks. Meghan Abdullahi MD Electronically signed by [facility] Conversion Language And Literature Division Chair Cerner at 12/14/2022 11:47 AM CDT documented in this encounter Plan of Treatment Not on file documented as of this encounter Visit Diagnoses Not on filedocumented in this encounter Care Teams Integration Lead Relationship Specialty Start Date End Date Jaelyn Renteria APRN [address] [place] [address] PCP - General Family Medicine 10/06/22 Vanessa Green MD [address] [place] [phone] Access Director Rheumatology 10/06/22 documented as of this encounter
--- OUTSIDE RECORDS SUMMARY | 2025-05-04 12:18 | XMS_ITS | Encounter Summary ---
Author Organization [facility] Address [address] [place] [address] Care Team Providers Care Waiter/Waitress Cabin Class Name Role Phone Red Tamayo MD Primary Care Provider [phone] Encounter Details Date Type Department Care Team (Late st Contact Info) Description 09/07/2017 Telephone [facility] [address] [phone] Kamlesh Abdullahi MD [address] [address] Social History Tobacco Use Types Packs/Day Years Used Date Smoking Tobacco: Former Cigarettes Q uit: 09/05/1975 Smokeless Tobacco: Never Alcohol Use Standard Drinks/Week Comments Yes 0 (1 standard drink = 0.6 oz pur e alcohol) occassional drinker Comments No Sex and Gender Information Value Date Recorded Sex Assigned at Not on file Legal Sex Female 10:18 AM EDT Gender Identity Not on file Sexual Orientation Not on file documented as of this encounter Miscellaneous Notes * Telephone Encounter - Hilary Lentz MA - 09/10/2017 2:58 PM EST Patient notified. * Telephone Encounter - Kamlesh Abdullahi MD - 09/10/2017 8:18 AM EST Done * Telephone Encounter - Madeline Trevizo - 09/07/2017 10:28 AM EST PATIENT WOULD LIKE REFERRALS TO DERMATOLOGY AND PULMONOLOGY. documented in this encounter Plan of Treatment Not on file documented as of this encounter Visit Diagnoses Not on filedocumented in this encounter Additional Health Concerns Infection [...] documented as of this encounter Care Teams Waiter/Waitress Cabin Class Relationship Specialty Start Date End Date Red Tamayo MD [address] [place] [address] PCP - General Pain Medicine 12/29/23 documented as of this encounter
--- OUTSIDE RECORDS SUMMARY | 2025-05-04 12:18 | XMS_ITS | Patient Health Record ---
Author Organization [facility] Address [address] [place] [address] [address] [place] [address] Care Team Providers Care Acid Changer Name Role Phone Jaelyn Guerrero Unavailable Unavailable [...] Status Risk Notes Problem Chronic pain syndrome (152574357) Chronic pain syndrome (G89.4) Active confirmed Problem Complex regional pain syndrome type I of right lower limb (disorder) (73208549215337 9) Complex regional pain syndrome I of right lower limb (G90.521) Active confirmed Problem Complex regional pain syndrome of lower limb (disorder) (308080442) Complex regional pain syndrome I of unspecified lower limb (G90.529) Active confirmed Problem Post-laminectom y syndrome (73549603) Postlaminectomy syndrome, not elsewhere classified (M96.1) Active confirmed Problem Long-term current use of drug therapy (168604305) 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 (Z79.899) Active confirmed Problem Lumbar spondylosis (575784303) lumbar spondylosis (M47.816) Active confirmed Problem Cervical spondylosis (955839511) cervical spondylosis (M47.812) Active confirmed Plan Of Treatment Pending Test Test Name Order Date Urine Test LCMS Definitive 08/16/2023 Insurance Providers Payer Name Payer Address Payer Phone Subscriber Number Group Number Insured Name Patient Relationship to Insured Coverage Start Date Coverage End Date [place] Medicaid [address] [place] [phone] [id number] Diamond Damon Self - patient is the insured 9 Medical (General) History Medical History History ICD Code anxiety-/Jaelyn Renteria GREENSKEEPER asthma-1979/Jaelyn Renteria GREENSKEEPER bipolar disorder-1993/Jaelyn Renteria GREENSKEEPER COPD-1979/Jaelyn Renteria GREENSKEEPER fibromyalgia-1989/Jaelyn Godkelley GREENSKEEPER depression-/Jaelyn Renteria GREENSKEEPER [id number] an issue/Jaelyn Martinez odkelley GREENSKEEPER Stroke-1993/Jaelyn Renteria GREENSKEEPER Hypothyroidism-1979/Jaelyn Renteria GREENSKEEPER [id number]/Jaelyn Renteria GREENSKEEPER Degenerative disc disease-1999/Jaelyn Go dby GREENSKEEPER Surgical History Surgery Date(Month/Year) Left ankle surgery x2/ [facility] / with a 3 day stay 1999 Appendectomy/ [facility] / overnigh t stay 2003 Cholecystectomy/ [facility] / overn ight stay 2002 LT Hand Surgery x2/ [facility] / wi th a 3 day stay 1976 Neck (cervical discetomy)Dr. Marc/ [facility] / over night stay 2005 RT Shoulder / [facility] / (OP) 198 2 Tonsillectomy/ [facility] / (OP) 19 66 Tubal abdominal ligation / in [place] / (O P) 1981 Bladder lift / [facility] / Dr. Daniel Crawford / (OP) 2005 [place]vari[place] Cyst Rupture/ [facility] in [facility] / with a 3-4 day stay 1987 oophorectomy (left)/ [facility] / ( OP) 2005 [place] teeth/ Dr. Hess / (OP) 1976 Hernia repair / [facility] / (OP) 03/14/2021 Hospitalization History Reason Date(Month/Year) Bowel obstruction / [facility] / treated and rel eased 02/2021
--- OUTSIDE RECORDS SUMMARY | 2025-05-04 12:18 | XMS_ITS | Referral Summary ---
Author Organization [employer] ([place], [place], [place], [place]) Address [address] [place] [address] Care Team Providers Care National Sales Executive Name Role Phone Jaelyn Renteria APRN Primary Care Provider [phone] Vanessa Green MD Unavailable Allergies Active Allergy [...] High 12/16/2012 Other reaction(s): Confusion, Flushing, Hallucinations Webvawgc-Vfzibaukjr-Kdh ymyxin Itching High 10/07/2022 Other Anxiety Low [...] Date Pj rded Speak language other than Spanish at home Not on file 09/11/2023 Want [...] file Insurance [place]ICAID OF [place] Care Teams National Sales Executive Relationship Specialty Start Date End Date Myra Jaelyn, C CONSULTANT [address] [place] [address] PCP - General Family Medicine 10/06/22 Vanessa Green MD [address] [place] [phone] Collections Director Rheumatology 10/06/22
--- NOTE | 2025-05-04 12:19 | XR_ITS ---
FINAL REPORT CLINICAL HISTORY: L Shoulder pain FINDINGS: LEFT SHOULDER Three views were obtained. There is no fracture or dislocation. There is degenerative joint disease. No soft tissue abnormality is identified. IMPRESSION: Degenerative joint disease. Reviewed, Interpreted and Dictated by Yael Tinoco MD Transcribed by [place] Authenticated and [facility]
--- OUTSIDE RECORDS SUMMARY | 2025-05-04 12:19 | XMS_ITS | Encounter Summary ---
Author Organization [facility] ([place], [place], [place], [place]) Address [address] [place] [address] Care Team Providers Care Film Maker Name Role Phone Jaelyn Renteria APRN Primary Care Provider [phone] Vanessa Green MD Unavailable Encounter Details Date Type Department Care Team (Late st Contact Info) Description 01/05/[address] 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 What [...] by infection with Helicobacter pylori (H. pylori). Bgbk-pdu-zfepxjc (OTC) omeprazole is used to help control [...] medicine exactly as directed. Use Prilosec OTC (xnak-fyw-clvpaxc) exactly as directed on the label, or [...] may report side effects to FDA at 8-270-OQA-1649. What other drugs will affect omeprazole? Sometimes [...] may affect omeprazole. This includes prescription and fkna-azh-fkklsqh medicines, vitamins, and herbal products. Not all [...] to ensure that the information provided by [employer]. ('[employer]') is accurate, up-to-date, and complete, but no guarantee is made to that effect. Drug information contained herein may be time sensitive. [employer] information has been compiled for use by healthcare practitioners and consumers in the [place] and therefore [employer] does not warrant that uses outside of the [place] are appropriate, unless specifically indicated otherwise. [employer] drug information does not endorse drugs, diagnose patients or recommend therapy. [employer] drug information is an informational resource designed [...] effective or appropriate for any given patient. [employer] does not assume any responsibility for any aspect of healthcare administered with the aid of information [employer] provides. The information contained herein is not intended to cover all possible uses, directions, precautions, warnings, drug interactions, allergic reactions, or adverse effects. If you have questions about the drugs you are taking, check with your doctor, nurse or pharmacist. Copyright 1312-6084 [employer]. Version: 19.01. Revision Date: 02/21/2018. Emergency Awareness [...] Assistance with quitting is available by contacting 5-659-OWFV-NOW. This is a free resource providing counseling, [...] Be sure to sign up for the [employer] patient portal, which gives you 22/03 access to your medical information ??? including these discharge instructions ??? using your computer, smartphone, or tablet. Just go to [employer] to get started. Questions? Call . Test Results Laboratory or Other Results This Visit (last charted value for your 01/05/2019 visit) No Laboratory or Other Results This Visit Patient Name:LILI DAMON I have received this information and was given the opportunity to ask questions. Patient/Business Support Coordinator Name: Patient/Business Support Coordinator Signature: Relationship to Patient: Clinician/Hospital Business Support Coordinator Signature: Date: documented in this encounter Plan of Treatment Not on file documented as of this encounter Visit Diagnoses Not on filedocumented in this encounter Care Teams Film Maker Relationship Specialty Start Date End Date Jaelyn Renteria APRN [address] [place] [address] PCP - General Family Medicine 10/06/22 Vanessa Green MD [address] [place] [phone] Turret Lathe Operator Rheumatology 10/06/22 documented as of this encounter
--- OUTSIDE RECORDS SUMMARY | 2025-05-04 12:19 | XMS_ITS | Clinical Summary ---
Author Organization [facility] Address [address] [place] [address] Care Team Providers Care Lay Out Machine Operator Name Role Phone Pcp, No Primary Care [...] - 02/01/2025 3:04 PM EDT Hospital Encounter [facility] [address] [facility] [place] [address] Lc Childs MD Unspecified mood (affective) disorder [...] Wellness (AWV) 1960 [facility]-/Child/Adol SDOH Screenings 1960 FXP-XCATI-10 Vaccine (#1) 12/03/1964 [facility]- SDOH Screenings 12/03/1977 [...] Antigen Negative Negative 02/01/2025 2:56 PM EDT [facility] Blood Venous blood specimen / Unknown 02/01/2025 10:04 AM EDT us Desiree Simon APRN LAB BLOOD ORDERABLES Final Re sult [facility] [address] [place] [address] * Hepatitis C Antibody with Reflex to HCV Quant PCR - Empath (02/01/2025 2:04 PM EDT) Hepatitis C Antibody Negative Negative 02/01/2025 2:04 PM EDT [facility] Blood Venous blood specimen / Unknown 02/01/2025 10:04 AM EDT Desiree Bethany Simon TRAINING EXECUTIVE LAB BLOOD ORDERABLES Final Re sult Performing Organization Address [facility]/ZIP Co de Phone Number [facility] [address] [place] [address] * HIV 1 & 2 Antibody/Antigen Screen (02/01/2025 1:28 PM EDT) HIV 1 & 2 Antibody/Antigen Screen Non Reactive Non Reactive 02/01/2025 1:28 PM EDT [facility] Comment:Screening for HIV 1 & 2 antibodies, and P24 antigen is NONREACTIVE. No confirmatory testing is required. Blood Venous blood specimen / Unknown 02/01/2025 10:04 AM EDT [facility] BLOOD ORDERABLES Final Re sult Performing Organization Address [facility] Co de Phone Number [facility] [address] [place] [address] * COLONOSCOPY (12/19/2012) Anatomical Region Laterality Modality Endoscopy Narrative 12/19/2012 Ordered by an unspecified provider. Historical Provider GI PROCEDURE ORDERABLES Mi l Result * Cytology (04/17/1997 12:00 AM EDT) 04/17/1997 04/18/1997 Narrative [facility] - 04/23/1997 12:00 AM EDT [facility] MR #: [id number] [facility] L[place]I [place], [place] [address] 1960 (Age: 36) FW Collect Date: 04/17/1997 00:00 Receipt Date: 04/18/1997 00:00 Page 1 DEPARTMENT OF PATHOLOGY AND LABORATORY MEDICINE CYTOPATHOLOGY REPORT Email: [email or web address] * Converted Case * This report may not match the original report format ATTENDING MD/Practitioner: Mary Galan MD Service: MALTER OPERATOR Location: Reported: 04/23/1997 00:00 Collected: 04/17/1997 00:00 [...] KATHYA Dye (ASCP) No Signature Required KATHYA Wlikinson (ASCP) Cervical cytology is a screening test [...] results is suggested (please call Microbiology at [phone] for results). CLINICAL INFORMATION: Menstrual History: {Not Provided} Date of Last Menstrual Period: {Not Provided} SPECIMEN DESCRIPTION: A: THIN PREP(CERVICAL/ENDOCERVICAL)., THIN PREP PAP ICD: F: {Not Entered} SNOMED CODES: 1; V5I557.3 [id number] [id number] In cases where a pathologist has signed out the report, the service has been rendered in part by a resident. The signing pathologist has performed and is responsible for the reported pathologic evaluation. Yumiko Galan MD LAB PATHOLOGY ORDERABLES Mi cornejo Result [facility] from Last 3 Months or Most Recently Relevant to Health Maintenance Insurance [place]ICAID-[place] AETNA MEDICARE Care Teams Lay Out Machine Operator Relationship Specialty Start Date End Date Pcp, Alicia [address] [place] [address] PCP - General Family Medicine 02/01/25
--- OUTSIDE RECORDS SUMMARY | 2025-05-04 12:19 | XMS_ITS | Encounter Summary ---
Author Organization [employer] ([place], [place], [place], [place]) Address [address] [place] [address] Care Team Providers Care Marketing Editor Name Role Phone Jaelyn Renteria APRN Primary Care Provider [phone] Vanessa Green MD Unavailable Encounter Details Date Type Department Care Team (Late st Contact Info) Description 11/09/2018 Transcribed Document [facility] [place] Family Medicine [address] [place] [address] ProviderLexi MD [address] [place] [address] Social History Tobacco Use Types Packs/Day [...] a clinical diagnosis. Clinical correlation is recommended documented in this encounter Plan of Treatment Not on file documented as of this encounter Visit Diagnoses Not on filedocumented in this encounter Care Teams Marketing Editor Relationship Specialty Start Date End Date Jaelyn Renteria APRN [address] [place] [address] PCP - General Family Medicine 10/06/22 Vanessa Green MD [address] [place] [phone] Service Crew Leader Rheumatology 10/06/22 documented as of this encounter
--- OUTSIDE RECORDS SUMMARY | 2025-05-04 12:19 | XMS_ITS | Encounter Summary ---
Author Organization [employer] ([place], [place], [place], [place]) Address [address] [place] [address] Care Team Providers Care Bread Pan Greaser Name Role Phone Jaelyn Renteria APRN Primary Care Provider [phone] Vanessa Green MD Unavailable Encounter Details Date Type Department Care Team (Late st Contact Info) Description 04/13/2019 Transcribed Document [facility] [place] [facility] [place] [address] ProviderLexi MD [address] [place] [address] Social History Tobacco Use Types Packs/Day [...] on filedocumented in this encounter Care Teams Bread Pan Greaser Relationship Specialty Start Date End Date Jaelyn Renteria APRN [address] [place] [address] PCP - General Family Medicine 10/06/22 Vanessa Green MD [address] [place] [phone] Medical Insurance Claims Specialist Rheumatology 10/06/22 documented as of this encounter
--- OUTSIDE RECORDS SUMMARY | 2025-05-04 12:19 | XMS_ITS | Patient Health Record ---
Author Organization [facility] Address [address] [place] [address] Care Team Providers Care Circuit Walker Name Role Phone Red Tamayo II Unavailable [phone] Jaelyn Guerrero Unavailable Unavailable Freeman Albarran Unavailable [phone] Allergies Allergen (clinical drug ingredient) Drug/Non Drug [...] Oxycodone (OXY) POS Urine Test ANALYZER Reviewed date:04/27/2025 06:53:44 AM [...] Notes/Report: +oxy 2/3 Urine Test ANALYZER Reviewed date:01/30/2025 01:35:09 PM Interpretation:+EMANUEL Performing Lab: Notes/Report: +EMANUEL Heroin Metabolite (6AM) NEG Amphetamine (AMP) NEG Benzodiazepine (EMANUEL) POS Buprenorphine NEG Cocaine (KYLE) NEG Hydrocodone (HYD) NEG Methadone (MTD) NEG Opiate (OPI) NEG Oxycodone (OXY) NEG Urine Test ANALYZER Reviewed date:07/25/2024 08:39:06 AM Interpretation:+OXY Performing Lab: Notes/Report: +OXY Heroin Metabolite (6AM) NEG Amphetamine (AMP) NEG Benzodiazepine (EMANUEL) NEG Buprenorphine NEG Cocaine (KYLE) NEG Hydrocodone (HYD) NEG Methadone (MTD) NEG Opiate (OPI) NEG Oxycodone (OXY) POS Urine Test ANALYZER Reviewed date:11/20/2024 03:15:16 PM [...] Provider Speciality Pain Manag ement Referred Organization [facility] Referred Address [address] [place] [address],[address],[place] Referred Provider Specialty Neurological Surgery General Notes Juan C (Susannah),Pat ty 08/02/2024 3:14:46 PM > Please contact the patient to schedule and fax confirmation of the scheduled appt to [phone]. If you need any additional information, please contact our office at [phone]. Thank You , Juan C (Susannah),Kenyatta 08/02/2024 3:30:35 PM > Faxed to facility, Margy Soria ([facility]) 09/18/2024 12:44:01 PM > Called [facility] and was advised this pt was scheduled for this on 10/10/24 but cx'd the appt due to transportation issues. Pt also no showed her last follow up with us and has not rescheduled. Closing referral but per [facility], she can reschedule whenever ready. Referral Priority Routine Medications Medication SIG (Take, Route, Frequency, Duration) Notes Start Date End Date Status acyclovir 400 mg 1 tab(s) orally 2 times a day 10/29/2022 Active TiZANidine Hydrochloride 4 mg 1 tab(s) orally every 8 hours; Duration: 30 days Active acetaminophen-oxycodo ne 325 mg-7.5 mg 1 tab(s) orally 3 times a day; Duration: 28 days April 2025 RX DO NOT FILL SOONER THAN 28 DAYS, (OK TO FILL EARLY, ONLY IF CLOSED) 04/27/2025 Active meclizine 25 mg 1 tab Oral tid prn; Duration: 15 days 10/29/2022 Active buPROPion 150 mg/12 hours 1 tab(s) orally 2 times a day; Duration: 30 day(s) 10/29/2022 Active Lidocaine Pain Relief Patch 4% 1 PATCH applied topically once a day; Duration: 30 days On for 12 hours, then remove for 12 hours Active acetaminophen-oxycodo ne 325 mg-7.5 mg 1 tab(s) orally 3 times a day; Duration: 28 days March 2025 RX DO NOT FILL SOONER THAN 28 DAYS, (OK TO FILL EARLY, ONLY IF CLOSED) 04/27/2025 Active fenofibrate 145 mg 1 tab(s) orally [...] Status Risk Notes Problem Chronic pain syndrome (633318475) Chronic pain syndrome (G89.4) Active confirmed Problem Complex regional pain syndrome type I of right lower limb (disorder) (09619600821053 9) Complex regional pain syndrome I of right lower limb (G90.521) Active confirmed Problem Complex regional pain syndrome of lower limb (disorder) (761986245) Complex regional pain syndrome I of unspecified lower limb (G90.529) Active confirmed Problem Post-laminectom y syndrome (38657752) Postlaminectomy syndrome, not elsewhere classified (M96.1) Active confirmed Problem Long-term current use of drug therapy (874382131) 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.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) Active confirmed Problem Lumbar spondylosis (989732396) lumbar spondylosis (M47.816) Active confirmed Problem Cervical spondylosis (674323716) cervical spondylosis (M47.812) Active confirmed Vital Signs Heart Rate 90 /min 04/26/2025 Blood pressure diastolic 79 mm Hg 04/26/2025 Height 65 in 04/26/2025 Blood pressure systolic 139 mm Hg 04/26/2025 Weight 145 lbs 04/26/2025 BMI 24.13 kg/m2 04/26/2025 Encounters Encounter Location Date Provider Diagnosis [facility] [address] [place] [address] 05/29/2024 Red Tamayo 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 Z79.899 ; lumbar spondylosis M47.816 ; cervical spondylosis M47.812 ; Postlaminectomy syndrome, not elsewhere classified M96.1 and Complex regional pain syndrome I of right lower limb G90.521 [facility] [address] [place] [address] 07/24/2024 Red Tamayo 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 Z79.899 ; lumbar spondylosis M47.816 ; cervical spondylosis M47.812 ; Postlaminectomy syndrome, not elsewhere classified M96.1 and Complex regional pain syndrome I of right lower limb G90.521 [facility] [address] [place] [address] 09/26/2024 Red Tamayo Other [facility] (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 Z79.899 ; lumbar spondylosis M47.816 ; cervical spondylosis M47.812 ; Postlaminectomy syndrome, not elsewhere classified M96.1 and Complex regional pain syndrome I of right lower limb G90.521 [facility] [address] [place] [address] 11/20/2024 Red Tamayo Other [facility] (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 Z79.899 ; lumbar spondylosis M47.816 ; cervical spondylosis M47.812 ; Postlaminectomy syndrome, not elsewhere classified M96.1 and Complex regional pain syndrome I of right lower limb G90.521 [facility] [address] [place] [address] 01/30/2025 Red Tamayo Other [facility] (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 Z79.899 ; lumbar spondylosis M47.816 ; cervical spondylosis M47.812 ; Postlaminectomy syndrome, not elsewhere classified M96.1 and Complex regional pain syndrome I of right lower limb G90.521 [facility] [address] [place] [address] 03/27/2025 Red Tamayo 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 Z79.899 ; lumbar spondylosis M47.816 ; cervical spondylosis M47.812 ; Postlaminectomy syndrome, not elsewhere classified M96.1 and Complex regional pain syndrome I of right lower limb G90.521 [facility] [address] [place] [address] 04/26/2025 Red Tamayo 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 Z79.899 ; lumbar spondylosis M47.816 ; cervical spondylosis M47.812 ; Postlaminectomy syndrome, not elsewhere classified M96.1 and Complex regional pain syndrome I of right lower limb G90.521 [facility] [address] [place] [address] 05/29/2024 Red Tamayo 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 Z79.899 [facility] [address] [place] [address] 05/30/2024 Red Tamayo [facility] [address] [place] [address] 07/24/2024 Red Tamayo 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 Z79.899 [facility] [address] [place] [address] 08/02/2024 Red Tamayo [facility] [address] [place] [address] 09/26/2024 Red Tamayo Other [facility] (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 Z79.899 [facility] [address] [place] [address] 11/20/2024 Red Tamayo 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 Z79.899 [facility] [address] [place] [address] 12/01/2024 Red Tamayo [facility] [address] [place] [address] 01/30/2025 Red Tamayo 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 Z79.899 [facility] [address] [place] [address] 02/04/2025 Red Tamayo [facility] [address] [place] [address] 03/27/2025 Red Tamayo Other [facility] (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 Z79.899 [facility] [address] [place] [address] 03/28/2025 Red Tamayo [facility] [address] [place] [address] 04/26/2025 Red Tamayo Other [facility] (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 Z79.899 Assessments Encounter Date Diagnosis (ICD Code) Assessment Notes Treatment Notes Treatment Clinical Notes Section Notes 05/29/2024 Other [facility] (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 (ICD-10 - Z79.899) 05/29/2024 Other [facility] (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 (ICD-10 - Z79.899) May [...] risk assessment is low. f/u 2 months 40LHN34 - Patient with chronic LBP with radicular [...] risk assessment is low. f/u 2 months 49CZS27 - Patient with chronic LBP with radicular [...] good response prior to implant. 07/24/2024 [facility] (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 (ICD-10 - Z79.899) July [...] risk assessment is low. f/u 2 months 99NVZ28 - Patient with chronic LBP with radicular [...] validate a good response prior to implant. 30LSP56 - Patient presents today to discuss further [...] risk assessment is low. f/u 2 months 62NCE20 - Patient with chronic LBP with radicular [...] validate a good response prior to implant. 92TAZ78 - Patient presents today to discuss further [...] her back and radicular pain. 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 11/20/2024 Other [facility] (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 (ICD-10 - Z79.899) 11/20/2024 [...] refilled and f/u 2 months. 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 Refill percocet 7.5/325mg TID 2. Refer patient to NS.- waiting to reschedule appt. 3. Follow up in 2 months 4. Refill tizanidine 4mg TID 5. benzo letter to Mee Agrawal A.P.R.N. (sent 01/30) 01/30/2025 Screen Unexpected(-) Sent for Definitive, 11/20/2024 Ms. Damon returns today [...] months, or sooner if needed. 01/30/2025 [facility] (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 (ICD-10 - Z79.899) 03/27/2025 Other [facility] (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 (ICD-10 - Z79.899) 03/27/2025 1. Refill percocet 7.5/325mg TID 2. Refill tizanidine 4mg TID 3. Start Lidocaine patch daily as directed 4. Follow up in 1 month for 03/27/2025 Ms. Damon is a 64 year-old with complaints chronic [...] reviewed. Opioid risk assessment is low. 03/27/2025 Other [facility] (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 (ICD-10 - Z79.899) 04/26/2025 Other [facility] (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 (ICD-10 - Z79.899) 04/26/2025 1. Refill percocet 7.5/325mg TID 2. Refill tizanidine 4mg TID 3. Refill Lidocaine patch daily as directed 4. Order TENS unit 5. Follow up in 2 months 03/27/2025 Ms. Damon is a 64 year-old with complaints chronic [...] reviewed. Opioid risk assessment is low. 04/26/2025 Other [facility] (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 (ICD-10 - Z79.899) 04/26/2025 lumbar spondylosis (ICD-10 - M47.816) 03/27/2025 Ms. Damon is a 64 year-old with complaints chronic [...] lumbar spondylosis (ICD-10 - M47.816) 03/27/2025 Ms. Damon is a 64 year-old with complaints chronic [...] were reviewed. Opioid risk assessment is low. 01/30/2025 lumbar spondylosis (ICD-10 - M47.816) 11/20/2024 [...] risk assessment is low. f/u 2 months 58GDL59 - Patient with chronic LBP with radicular [...] validate a good response prior to implant. 38TGY64 - Patient presents today to discuss further [...] risk assessment is low. f/u 2 months 05RUK85 - Patient with chronic LBP with radicular [...] a good response prior to implant. 05/29/2024 Postlaminectomy syndrome, not elsewhere classified (ICD-10 [...] risk assessment is low. f/u 2 months 91PMU13 - Patient with chronic LBP with radicular [...] risk assessment is low. f/u 2 months 61AFX06 - Patient with chronic LBP with radicular [...] validate a good response prior to implant. 73PMQ13 - Patient presents today to discuss further [...] in two months, or sooner if needed. 03/27/2025 cervical spondylosis (ICD-10 - M47.812) 03/27/2025 Ms. Damon is a 64 year-old with complaints chronic [...] cervical spondylosis (ICD-10 - M47.812) 03/27/2025 Ms. Damon is a 64 year-old with complaints chronic [...] elsewhere classified (ICD-10 - M96.1) 03/27/2025 Ms. Damon is a 64 year-old with complaints chronic [...] were reviewed. Opioid risk assessment is low. 01/30/2025 Postlaminectomy syndrome, not elsewhere classified (ICD-10 [...] in two months, or sooner if needed. 03/27/2025 Postlaminectomy syndrome, not elsewhere classified (ICD-10 - M96.1) 03/27/2025 Ms. Damon is a 64 year-old with complaints chronic [...] were reviewed. Opioid risk assessment is low. 11/20/2024 Complex regional pain syndrome I of [...] Meds refilled and f/u 2 months. 07/24/2024 Complex regional pain syndrome I of [...] risk assessment is low. f/u 2 months 94UOQ06 - Patient with chronic LBP with radicular [...] validate a good response prior to implant. 12IEU97 - Patient presents today to discuss further [...] for her back and radicular pain. 05/29/2024 Complex regional pain syndrome I of [...] risk assessment is low. f/u 2 months 89NXF51 - Patient with chronic LBP with radicular [...] validate a good response prior to implant. 01/30/2025 Complex regional pain syndrome I of [...] in two months, or sooner if needed. 03/27/2025 Complex regional pain syndrome I of right lower limb (ICD-10 - G90.521) 03/27/2025 Ms. Damon is a 64 year-old with complaints chronic [...] lower limb (ICD-10 - G90.521) 03/27/2025 Ms. Damon is a 64 year-old with complaints chronic [...] were reviewed. Opioid risk assessment is low. 05/18/2024 03/27/2024 Ms. Damon returns today for [...] risk assessment is low. f/u 2 months 14YQU46 - Patient with chronic LBP with radicular [...] validate a good response prior to implant. 79DAU64 - Patient presents today to discuss further [...] risk assessment is low. f/u 2 months 34PXZ14 - Patient with chronic LBP with radicular [...] validate a good response prior to implant. 02ISK41 - Patient presents today to discuss further [...] risk assessment is low. f/u 2 months 54CUI64 - Patient with chronic LBP with radicular [...] validate a good response prior to implant. 55ZSV61 - Patient presents today to discuss further [...] reviewed. Meds refilled and f/u 2 months. 04/23/2025 03/27/2025 Ms. Damon is a 64 year-old with complaints chronic [...] risk assessment is low. Plan Of Treatment Pending Test Test Name Order Date Urine Test LCMS Definitive 01/30/2025 Next Appt Details Provider Name:Red Quinn eros, 06/08/2025 02:15:00 PM, [address], [place], [address], Insurance Providers Payer Name Payer Address Payer Phone Subscriber Number Group Number Insured Name Patient Relationship to Insured Coverage Start Date Coverage End Date [employer] Medicare [address] [place] [phone] [id number] Diamond Damon Self - patient is the insured 5 [place] Medicaid [address] [place] [address] [id number] Diamond Damon Self - patient is the [...] Jaelyn Renteria APRN Surgical History Surgery Date(Month/Year) Hernia repair / [facility] / (OP) 03/14/2021 [place] teeth/ Dr. Hess / (OP) 1976 oophorectomy (left)/ [facility] / ( OP) 2005 [place] Cyst Rupture/ [facility] in [facility] / with a 3-4 day stay 1987 Bladder lift / [facility] / Dr. Daniel Crawford / (OP) 2006 Tubal abdominal ligation / in [place] / (O P) 1981 Tonsillectomy/ [facility] / (OP) 19 66 RT Shoulder / [facility] / (OP) 198 2 Neck (cervical discetomy)Dr. Marc/ [facility] / over night stay 2004 LT Hand Surgery x2/ [facility] / wi th a 3 day stay 1976 Cholecystectomy/ [facility] / overn ight stay 2002 Appendectomy/ [facility] / overnigh t stay 2003 Left ankle surgery x2/ [facility] / with a 3 day stay 1999 Hospitalization History Reason Date(Month/Year) Coughing/ [facility]/1 day stay 01/2025 Bowel obstruction / [facility] / treated and rel eased 02/2021
--- OUTSIDE RECORDS SUMMARY | 2025-05-04 12:19 | XMS_ITS | Encounter Summary ---
Author Organization [employer] ([place], [place], [place], [place]) Address [address] [place] [address] Care Team Providers Care Silver Lap Machine Tender Name Role Phone Jaelyn Renteria APRN Primary Care Provider [phone] Vanessa Green MD Unavailable Encounter Details Date Type Department Care Team (Late st Contact Info) Description 01/05/2019 Transcribed Document [facility] Family Medicine [address] [place] [address] ProviderLexi MD [address] [place] [address] Social History Tobacco Use Types Packs/Day [...] Garlic and onions. ? Spicy foods. ? [place] fruits, including oranges, rhianna, or limes. ? [...] 02/01/2009 Document Revised: 11/07/2012 Document Reviewed: 05/09/2016 [employer] Interactive Patient Education ? 2017 [employer] Esophagogastroduodenoscopy, Care After Introduction Refer to [...] 2?3 times a day. General instructions??? Take yhal-ydb-gfcxsay and prescription medicines only as told by [...] to digest. ? Rest often. ??? Take pxbj-yyy-dfemozj or prescription medicines only as told by [...] 05/10/2017 [employer] Interactive Patient Education ? 2017 [employer] documented in this encounter Plan of Treatment Not on file documented as of this encounter Visit Diagnoses Not on filedocumented in this encounter Care Teams Silver Lap Machine Tender Relationship Specialty Start Date End Date Jaelyn Renteria APRN [address] [place] [address] PCP - General Family Medicine 10/06/22 Vanessa Green MD [address] [place] [phone] Senior Business Development Analyst Rheumatology 10/06/22 documented as of this encounter
--- OUTSIDE RECORDS SUMMARY | 2025-05-04 12:19 | XMS_ITS | Encounter Summary ---
Author Organization [employer] ([place], [place], [place], [place]) Address [address] [place] [address] Care Team Providers Care County Treasurer Name Role Phone Jaelyn Renteria APRN Primary Care Provider [phone] Vanessa Green MD Unavailable Encounter Details Date Type Department Care Team (Late st Contact Info) Description 01/05/2019 Transcribed Document [facility] Family Medicine [place] [address] ProviderLexi MD [address] [place] [address] Social History Tobacco Use Types Packs/Day Years Used Date Smoking Tobacco: Never Assessed Comments Unknown Sex and Gender Information Value Date Recorded Sex Assigned at Not on file Legal Sex Female 2:44 PM CDT Gender Identity Not on file Sexual Orientation Not on file documented as of this encounter Miscellaneous Notes * Cerner Conversion Note - Lxei ProviderMD - 01/05/2019 1:30 PM CDT TENISHA [facility] PACU Summary Primary Physician: [facility] Finalized Date/Time: 01/05/19 14:45:28 Pt. Name: LILI DAMON D.O.B./Sex: 1960 Female Med Rec #: [id number] Physician: [facility] Financial #: [id number] Pt. Type: O Room/Bed: [place]/ Admit/Disch: 01/05/19 12:03:00 - Institution: [facility] Endo PACU Case Times Entry 1 In PACU I 01/05/19 14:00:00 Ready for PACU 01/05/19 14:36:00 Discharge Discharge from PACU 01/05/19 14:45:00 I [facility] Endo PACU Case Times Audit 01/05/19 14:45:24 Cold Mill Operator: [id number] Modifier: [id number] <+> 1 Discharge from PACU I 01/05/19 14:43:14 Cold Mill Operator: [id number] Modifier: [id number] <+> 1 Ready for PACU Discharge Finalized By: Alee Rose RN Document Signatures Signed By: Alee Rose RN 01/05/19 14:45 Electronically signed by [facility] Conversion Recovery Auditor Cerner at 12/14/2022 11:51 AM CDT documented in this encounter Plan of Treatment Not on file documented as of this encounter Visit Diagnoses Not on filedocumented in this encounter Care Teams County Treasurer Relationship Specialty Start Date End Date Jaelyn Renteria, KEENA [address] [place] [address] PCP - General Family Medicine 10/06/22 Vanessa Green MD [address] [place] [phone] Chairman Ceo Rheumatology 10/06/22 documented as of this encounter
--- OUTSIDE RECORDS SUMMARY | 2025-05-04 12:19 | XMS_ITS | Encounter Summary ---
Author Organization [employer] ([place], [place], [place], [place]) Address [address] [place] [address] Care Team Providers Care Fishing Tool Operator Name Role Phone Jaelyn Renteria APRN Primary Care Provider [phone] Vanessa Green MD Unavailable Encounter Details Date Type Department Care Team (Late st Contact Info) Description 01/05/2019 Transcribed Document [facility] Medicine [address] [place] [address] ProviderLexi MD [address] [place] [address] Social History Tobacco Use Types Packs/Day [...] Performed On: 01/05/2019 12:58 EDT by Albina Dove RN Height and Weight, Clinical Dosing Height Source : Stated Height Entry Format : [place] Height, Feet : 5 ft(Converted to: 152 cm, 60 Inch) Height, Inches : 6 Inch(Converted to: 0 ft 6 Inch, 15.24 cm) Clinical Height : 167.64 cm Weight Source : Standing scale Weight Entry Format : [place] Clinical Dosing Weight : 66.36 kg Weight, Pounds : 146 lb Body Surface Area (BSA) : 1.75 m2 Body Mass Index : 23.6 kg/m2 [place] Body Weight : 59 kg Albina Dove [...] (Last Updated: 05/18/2014 22:07:02 EDT by BUD SHERMAN, JOB) Substance Abuse: Drug Use Hx: No. [...] Ambulatory Legal Guardian : Friend Support Person/Patient Fabric Awning Repairer : Yes Support Person/Pt Rep Name : maria teresa Support Person/Pt Rep Contact Information : [phone] Want Family/Rep/Phys Notified of Admit : No Emergency Contact #1 : na Emergency Contact #1 Phone Number : bryon Emergency Contact #1 Relationship : rhonda Emergency Contact #2 : a Emergency Contact #2 Phone Number : jeffrey Emergency Contact #2 Relationship : na Information Obtained From : Patient Primary Language : S[place] Preferred Communication Mode : Verbal Communication Barrier [...] No impairment Jar[place]o Moisture : Rarely moist [place] Activity : Walks frequently [place] Mobility : [...] Scale Risk Level : 25-45 Medium Risk [place] Fall Interventions : Adequate lighting, Assistive devices within reach, Bed in low position, Call device within reach, Fall prevention handout/education per facility policy, Frequent orientation to call device, Frequent orientation to surroundings, Hourly comfort/safety rounds, Non-slip footwear Albina oDve RN - 01/05/2019 12:58 EDT Valuables and [...] the text rendition version of the form. Electronically signed by Jarocho Traore Conversion Retail Inventory Control Clerk Cerner at 12/14/2022 11:59 AM CDT documented in this encounter Plan of Treatment Not on file documented as of this encounter Visit Diagnoses Not on filedocumented in this encounter Care Teams Fishing Tool Operator Relationship Specialty Start Date End Date Jaelyn Renteria, KEENA [address] [place] [address] PCP - General Family Medicine 10/06/22 Vanessa Green MD [address] [place] [phone] Lock Technician Rheumatology 10/06/22 documented as of this encounter
--- OUTSIDE RECORDS SUMMARY | 2025-05-04 12:19 | XMS_ITS | Encounter Summary ---
Author Organization [employer] ([place], [place], [place], [place]) Address [address] [place] [address] Care Team Providers Care Acid Cutter Name Role Phone Jaelyn Renteria APRN Primary Care Provider [phone] Vanessa Green MD Unavailable Encounter Details Date Type Department Care Team (Late st Contact Info) Description 01/05/2019 Transcribed Document [facility] Family Medicine [address] [place] [address] ProviderLexi MD [address] [place] [address] Social History Tobacco Use Types Packs/Day [...] Lexi ProviderMD - 01/05/2019 2:37 PM CDT [address] [address] LILI DAMON :1960 Visit Time:01/05/2019 [...] before breakfast on empty stomach Where: [address] [facility] [address] [place] [id number] Medications What How Much When Instructions Next [...] Garlic and onions. ? Spicy foods. ? [place] fruits, including oranges, rhianna, or limes. ? [...] 02/01/2009 Document Revised: 11/07/2012 Document Reviewed: 05/09/2016 [employer] Patient Education ?? 2017 [employer] Esophagogastroduodenoscopy, Care After Introduction Refer to [...] times a day. General instructions ??? Take etol-pul-znlsmuw and prescription medicines only as told by [...] to digest. ? Rest often. ??? Take bszs-xpf-prmbzdg or prescription medicines only as told by [...] 09/18/2011 Document Revised: 05/10/2017 Document Reviewed: 05/10/2017 [employer] Interactive Patient Education ?? 2017 [employer]. omeprazole (oh MEP ra zol) FIRST Omeprazole, [...] a broken bone while taking this medicine assisted or more than once per day. What [...] by infection with Helicobacter pylori (H. pylori). Txze-unw-avzatyr (OTC) omeprazole is used to help control [...] medicine exactly as directed. Use Prilosec OTC (qxky-ldj-nbvzquk) exactly as directed on the label, or [...] may report side effects to FDA at 8-554-WJP-3192. What other drugs will affect omeprazole? Sometimes [...] may affect omeprazole. This includes prescription and haua-xkq-mlvustf medicines, vitamins, and herbal products. Not all [...] to ensure that the information provided by [employer]. ('[employer]') is accurate, up-to-date, and complete, but no guarantee is made to that effect. Drug information contained herein may be time sensitive. Med Access information has been compiled for use by healthcare practitioners and consumers in the [place] and therefore Med Access does not warrant that uses outside of the [place] are appropriate, unless specifically indicated otherwise. [employer] drug information does not endorse drugs, diagnose patients or recommend therapy. [employer] drug information is an informational resource designed [...] effective or appropriate for any given patient. [employer] Access does not assume any responsibility for any aspect of healthcare administered with the aid of information Med Access provides. The information contained herein is not intended to cover all possible uses, directions, precautions, warnings, drug interactions, allergic reactions, or adverse effects. If you have questions about the drugs you are taking, check with your doctor, nurse or pharmacist. Copyright 9044-7191 [employer]. Version: 19.01. Revision Date: 02/21/2018. Emergency Awareness [...] Assistance with quitting is available by contacting 4-696-BISX-NOW. This is a free resource providing counseling, support, and referral. Or you may contact your personal physician. The [place] Suicide Prevention Lifeline: The National Suicide Prevention [...] Be sure to sign up for the [facility] patient portal, which gives you 22/03 access to your medical information ??? including these discharge instructions ??? using your computer, smartphone, or tablet. Just go to [employer] to get started. Questions? Call . Test Results Laboratory or Other Results This Visit (last charted value for your 01/05/2019 visit) No Laboratory or Other Results This Visit Patient Name:JACYLILI I have received this information and was given the opportunity to ask questions. Patient/Fur Dressing Supervisor Name: Patient/Fur Dressing Supervisor Signature: Relationship to Patient: Clinician/Hospital Fur Dressing Supervisor Signature: Date: documented in this encounter Plan of Treatment Not on file documented as of this encounter Visit Diagnoses Not on filedocumented in this encounter Care Teams Acid Cutter Relationship Specialty Start Date End Date Jaelyn Renteria APRN [address] [place] [address] PCP - General Family Medicine 10/06/22 Vanessa Green MD [address] [place] [phone] Cathode Maker Rheumatology 10/06/22 documented as of this encounter
--- OUTSIDE RECORDS SUMMARY | 2025-05-04 12:19 | XMS_ITS | Encounter Summary ---
Author Organization [employer] ([place], [place], [place], [place]) Address [address] [place] [address] Care Team Providers Care Quality Lab Technician Name Role Phone Jaelyn Renteria APRN Primary Care Provider [phone] Vanessa Green MD Unavailable Encounter Details Date Type Department Care Team (Late st Contact Info) Description 01/05/2019 Transcribed Document [facility] [place] [facility] [place] [address] ProviderLexi MD [address] [place] [address] Social History Tobacco Use Types Packs/Day [...] Endo IntraOp Summary Primary Physician: GILBERT OLSON MD-[facility] Finalized Date/Time: 01/05/19 13:55:28 Pt. Name: LILI DAMON D.O.B./Sex: 1960 Female Med Rec #: [id number] Physician: GILBERT OLSON MD-[facility] Financial #: [id number] Pt. Type: O Room/Bed: [facility] Admit/Disch: 01/05/19 12:03:00 - Institution: [facility] - Case Attendance Entry 1 Entry 2 Entry 3 Case Attendee YOUSIF OLSON YVONNE D., RN STEFFI GONZALEZ MD KAREN, MD-[facility] Role Performed Surgeon/Proceduralist, Storeroom Keeper, First Anesthesiologist First Time In 01/05/19 13:22:00 01/05/19 13:22:00 01/05/19 13:22:00 Time Out 01/05/19 13:57:00 01/05/19 13:57:00 01/05/19 13:49:00 Procedure Colonoscopy, Colonoscopy, Colonoscopy, Esophagogastroduodenosco Esophagogastroduodenosco Esophagogastroduodenosco py, Duodenal Biopsy py, Duodenal Biopsy py, Duodenal Biopsy Other Attendee Superficial Wound Closed By: Last Modified By: CORNELIA DODD, RN CORNELIA DODD, RN CORNELIA DODD, RN 01/05/19 13:55:26 01/05/19 13:55:26 01/05/19 13:55:26 Entry 4 Entry 5 Case Attendee CRISTIAN ASHFORD KAREN KIM, OPHTHALMIC PATHOLOGIST Role Performed Storeroom Keeper, First OPHTHALMIC PATHOLOGIST/Nurse Ward Attendant Time In 01/05/19 13:22:00 01/05/19 13:49:00 Time Out 01/05/19 13:57:00 01/05/19 13:57:00 Procedure Colonoscopy, Colonoscopy Esophagogastroduodenosco py, Duodenal Biopsy Other Attendee Superficial Wound Closed By: Last Modified By: CORNELIA DODD, RN CORNELIA DODD, RN 01/05/19 13:55:26 01/05/19 13:55:26 [facility] - Case Attendance Audit 01/05/19 13:55:26 Professor Of Archaeology: HERBERT Modifier: HERBERT 1 <+> Time Out 1 <*> Procedure Colonoscopy, Esophagogastroduodenoscopy, Duodenal Biopsy 2 <+> Time Out 2 <*> Procedure Colonoscopy, Esophagogastroduodenoscopy, Duodenal Biopsy 3 <*> Procedure Colonoscopy, Esophagogastroduodenoscopy, Duodenal Biopsy 4 <+> Time Out 4 <*> Procedure Colonoscopy, Esophagogastroduodenoscopy, Duodenal Biopsy 5 <+> Time Out 5 <*> Procedure Colonoscopy 01/05/19 13:52:32 Professor Of Archaeology: HERBERT Modifier: ANDREWMAYD 1 <*> Procedure Duodenal Biopsy 3 <+> Time Out 3 <*> Procedure Colonoscopy, Esophagogastroduodenoscopy, Duodenal Biopsy <+> 5 Case Attendee <+> 5 Role Performed <+> 5 Time In <+> 5 Procedure 01/05/19 13:32:03 Professor Of Archaeology: HERBERT Modifier: ANNAYD <+> 1 Procedure 2 <*> Procedure Colonoscopy, Esophagogastroduodenoscopy 3 <*> Procedure Colonoscopy, Esophagogastroduodenoscopy 4 <*> Procedure Colonoscopy, Esophagogastroduodenoscopy 01/05/19 13:25:00 Professor Of Archaeology: HERBERT Modifier: ANDREWMAYD 2 <*> Procedure Colonoscopy, Esophagogastroduodenoscopy 3 <*> Procedure Colonoscopy, Esophagogastroduodenoscopy 4 <+> Time In 4 <*> Procedure Colonoscopy, Esophagogastroduodenoscopy 01/05/19 13:24:03 Professor Of Archaeology: HERBERT Modifier: ANNAYD <+> 4 Case Attendee [...] Endo - Case Times Audit 01/05/19 13:55:11 Professor Of Archaeology: HERBERT Modifier: HERBERT <+> 1 Out Room Time <+> 1 Stop Time <+> 1 Stop Time 01/05/19 13:30:14 Professor Of Archaeology: HERBERT Modifier: SHERMAYD <+> 1 Start Time 01/05/19 13:23:41 Professor Of Archaeology: HERBERT Modifier: ANDREWMAYD <+> 1 Anesthesia Ready [...] Modified By: CORNELIA DODD RN 01/05/19 13:25:10 [facility] - Fire Risk Assessment Entry 1 Fire Info Surgical Site or 1- Yes Incision Above the Xyphoid Open O2 Source 1- Yes (Mask or Cannula) Available Ignition 1- Yes (ESU, Laser, Light Source) Fire Risk 3 Assessment Score Fire Score Fire Risk Yes Assessment Complete Fire Risk CORNELIA DODD, corporate receptionist Verified By Fire Risk 01/05/19 13:24:00 Assessment Verified Date/Time Fire Risk High Risk Protocol Yes Implemented Standard Fire Yes Safety Precautions Followed Last Modified By: CORNELIA DODD, JOB 01/05/19 13:24:29 E Endo - General Case Erection Shop Supervisor 1 Case Information OR Endo 04 E Case Level 1 Room Verified Yes Wound Class III - Contaminated Specialty SN Gastroenterology Anesthesia Type MAC ASA Class 3 Diagnosis Preop Diagnosis Z12.11/K59.00/R93.3 Postop Diagnosis gastritis Last Modified By: CORNELIA DODD RN 01/05/19 13:37:17 [facility] Endo - General Case Data Audit 01/05/19 13:37:17 Professor Of Archaeology: HERBERT Modifier: HERBERT 1 <*> OR Endo [...] Endo - Intraoperative Equipment Audit 01/05/19 13:26:28 Professor Of Archaeology: HERBERT Modifier: HERBERT <+> 2 Photo <+> [...] Endo - Patient Positioning Audit 01/05/19 13:32:04 Professor Of Archaeology: HERBERT Modifier: HERBERT Chaparro <*> Procedure Esophagogastroduodenoscopy [...] Yes Elements Complete? RN Sign Out CORNELIA DODD, RN Signature RN Sign Out 01/05/19 13:54:00 [...] Endo - Surgical Procedures Audit 01/05/19 13:54:47 Professor Of Archaeology: HERBERT Modifier: SHERMAYD 1 <*> Procedure Colonoscopy 1 <+> Stop 01/05/19 13:47:41 Professor Of Archaeology: HERBERT Modifier: SHERMAYD 1 <*> Procedure Colonoscopy 1 <+> Physician States Cecum Reached 01/05/19 13:39:14 Professor Of Archaeology: HERBERT Modifier: ANDREWMAYD 1 <*> Procedure Colonoscopy 1 <+> Specialty 1 <*> Start 01/05/19 13:30:00 01/05/19 13:36:44 Professor Of Archaeology: HERBERT Modifier: SHERMAYD 2 <*> Procedure Esophagogastroduodenoscopy 2 <+> Stop 3 <*> Procedure Duodenal Biopsy 3 <+> Stop 01/05/19 13:31:59 Professor Of Archaeology: HERBERT Modifier: SHERMAYD <+> 1 Start 2 [...] Endo - Time Out Audit 01/05/19 13:32:05 Professor Of Archaeology: HERBERT Modifier: HERBERT 1 <*> Procedure to be Performed Colonoscopy, Esophagogastroduodenoscopy Case Comments <None> Finalized By: CORNELIA DODD, RN Document Signatures Signed By: CORNELIA DODD, RN 01/05/19 13:55 Electronically signed by [facility] Conversion Community Board Member Cerner at 12/14/2022 12:10 PM CDT documented in this encounter Plan of Treatment Not on file documented as of this encounter Visit Diagnoses Not on filedocumented in this encounter Care Teams Quality Lab Technician Relationship Specialty Start Date End Date Jaelyn Renteria, MEDICAL CONSULTANT [address] [place] [address] PCP - General Family Medicine 10/06/22 Vanessa Green MD [address] [place] [phone] Child Welfare Consultant Rheumatology 10/06/22 documented as of this encounter
--- OUTSIDE RECORDS SUMMARY | 2025-05-04 12:19 | XMS_ITS | Encounter Summary ---
Author Organization [employer] ([place], [place], [place], [place]) Address [address] [place] [address] Care Team Providers Care Air Conditioning Mechanic Name Role Phone Jaelyn Renteria APRN Primary Care Provider Vanessa Green MD Unavailable Encounter Details Date Type Department Care Team (Late st Contact Info) Description 03/10/2019 Transcribed Document [facility] [place] [address] ProviderLexi MD [address] [place] [address] Social History Tobacco Use Types Packs/Day [...] on filedocumented in this encounter Care Teams Air Conditioning Mechanic Relationship Specialty Start Date End Date Jaelyn Renteria, KEENA [address] [place] [address] PCP - General Family Medicine 10/06/22 Vanessa Green MD [address] [place] [phone] E Commerce Marketing Manager Rheumatology 10/06/22 documented as of this encounter
--- OUTSIDE RECORDS SUMMARY | 2025-05-04 12:19 | XMS_ITS | Encounter Summary ---
Author Organization [employer] ([place], [place], [place], [place]) Address [address] [place] [address] Care Team Providers Care Dispatch Manager Name Role Phone Jaelyn Renteria APRN Primary Care Provider [phone] Vanessa Green MD Unavailable Encounter Details Date Type Department Care Team (Late st Contact Info) Description 04/27/2019 Transcribed Document [facility] [place] [facility] [place] [address] ProviderLexi MD [address] [place] [address] Social History Tobacco Use Types Packs/Day [...] on filedocumented in this encounter Care Teams Dispatch Manager Relationship Specialty Start Date End Date Jaelyn Renteria APRN [address] [place] [address] PCP - General Family Medicine 10/06/22 Vanessa Green MD [address] [place] [phone] Energy Conservation Director Rheumatology 10/06/22 documented as of this encounter
--- OUTSIDE RECORDS SUMMARY | 2025-05-04 12:19 | XMS_ITS | Encounter Summary ---
Author Organization [employer] ([place], [place], [place], [place]) Address [address] [place] [address] Care Team Providers Care Customer Acquisition Manager Name Role Phone Jaelyn Renteria APRN Primary Care Provider [phone] Vanessa Green MD Unavailable Encounter Details Date Type Department Care Team (Late st Contact Info) Description 01/05/2019 Transcribed Document [facility] [place] [facility] [place] [address] ProviderLexi MD [address] [place] [address] Social History Tobacco Use Types Packs/Day [...] Endo PreOp Summary Primary Physician: GILBERT OLSON MD-[facility] Finalized Date/Time: 01/05/19 13:14:29 Pt. Name: LILI DAMONO.B./Sex: 1960 Female Med Rec #: [id number] Physician: GILBERT OLSON MD-[facility] Financial #: [id number] Pt. Type: O Room/Bed: [facility]/ Admit/Disch: 01/05/19 12:03:00 - Institution: [facility] PreOp Case Times Entry 1 In Preop 01/05/19 12:58:00 Ready for Holding n/a Room Patient Ready for 01/05/19 13:14:00 Surgery Patient Out of Preop 01/05/19 13:14:00 Patient Out of n/a Holding Room [facility] PreOp Case Times Audit 01/05/19 13:14:28 Ramp Attendant: BICKNEA Modifier: BICKNEA <+> 1 Patient Out of Preop <+> 1 Patient Ready for Surgery Finalized By: Albina Dove RN Document Signatures Signed By: Albina Dove RN 01/05/19 13:14 Electronically signed by Eugenie [facility] Conversion Slitter Creaser Slotter Operator Cerner at 12/14/2022 11:52 AM CDT documented in this encounter Plan of Treatment Not on file documented as of this encounter Visit Diagnoses Not on filedocumented in this encounter Care Teams Customer Acquisition Manager Relationship Specialty Start Date End Date Evakelley Jaelyn, PAYABLE MANAGER [address] [place] [address] PCP - General Family Medicine 10/06/22 Vanessa Green MD [address] [place] [phone] Otr Owner Operator Truck Driver Rheumatology 10/06/22 documented as of this encounter
== END 2025-05-04 23:59 | disposition home or self-care (01) ==
LOC: RAD 12:15
PROVIDERS: PCP Nurse Practitioner Family; Visit Provider Nurse Practitioner Family
DX: M19.012 Primary osteoarthritis, left shoulder (principal)
CPT/HCPCS: 73030

== ENCOUNTER 2025-05-17 11:33 | Outpatient (CLI) | payer MEDICARE, MEDICAID, SELFPAY ==
--- OUTSIDE RECORDS SUMMARY | 2018-01-11 19:54 | XMS_ITS | Encounter Summary ---
[facility] Address [address] [place] [address] Care Team Providers Care Sash Sticker Name Role Phone Kamlesh Abdullahi MD Primary Care Provider [phone] Reason for Referral * Hospital - Outpatient (Routine) - Closed Specialty Diagnoses / Procedures Referred By Patricia neri Referred To Contact Sleep Medicine Diagnoses Obstructive sleep apnea Snoring Excessive daytime sleepiness Sleep talking Procedures Polysomnography 4 or More Parameters Amanuel Elizalde MD [address] [place] [address] 3 [place] [address] Phone: tel: fax: [facility] [address] [place] [address] Phone: tel: Referral ID Status Reason Start Date Expiration Date Visits Re quested Visits Authorized [id number] Closed 12/07/2017 01/11/2018 1 1 Reason for Visit * Hospital - Outpatient (Routine) - Closed Specialty Diagnoses / Procedures Referred By Patricia neri Referred To Contact Sleep Medicine Diagnoses Obstructive sleep apnea Snoring Excessive daytime sleepiness Sleep talking Procedures Polysomnography 4 or More Parameters Amanuel Elizalde MD 793 [facility] [address] [address] Phone: tel: fax: [facility] [address] [place] [address] Phone: tel: Referral ID Status Reason Start Date Expiration Date Visits Re quested Visits Authorized [id number] Closed 12/07/2017 01/11/2018 1 1 Encounter Details Date Type Department Care Team (Latest Contact Info) Description 01/11/2018 7:54 PM EDT Hospital Encounter [facility] [address] [place] [address] Amanuel Elizalde MD 793 [facility] [address] [place] [address] Obstructive sleep apnea; Snoring; Excessive [...] Elizalde MD - 01/12/2018 4:15 PM EDT [facility] Pulmonary, Critical Care, and Sleep Medicine Amanuel Elizalde M.D. 793 [facility] [address] Medical Office [facility] # [address] [id number]. POLYSOMNOGRAPHY INTERPRETATION Date of Study: 01/11/2018 Patient [...] a co-existing sleep disorder such as Narcolepsy, AGRISCIENCE INSTRUCTOR Hypersomnolence or Insufficient Sleep Syndrome. To sort [...] feel free to contact the office of [facility] Pulmonary, Critical Care and Sleep Medicine at [phone], if you have any questions. Best regards, This document was electronically signed by Amanuel Elizalde MD January 12, 2018 4:11 PM Procedure Note Amanuel Elizalde MD - 01/12/2018 [facility] Pulmonary, Critical Care, and Sleep Medicine Amanuel Elizalde M.D. 793 [facility] [address] Medical Office Building [address] [id number]. POLYSOMNOGRAPHY INTERPRETATION Date of Study: 01/11/2018 Patient [...] has a co-existing sleep disorder such asNarcolepsy, AGRISCIENCE INSTRUCTOR Hypersomnolence or Insufficient Sleep Syndrome. To sort [...] feel free to contact the [facility] at [phone], if you haveany questions. Best regards, This [...] documented as of this encounter Care Teams Sash Sticker Relationship Specialty Start Date End Date Kamlesh Abdullahi MD [address] [place] [address] PCP - General Internal Medicine 06/21/17 01/15/19 documented as of this encounter
--- OUTSIDE RECORDS SUMMARY | 2018-03-10 12:00 | XMS_ITS | Encounter Summary ---
[facility] [address] [place] [address] Care Team Providers Care Rn Mds Name Role Phone Kamlesh Abdullahi MD Primary Care Provider [phone] Reason for Visit * Hospital - Outpatient (Routine) - Closed Specialty Diagnoses / Procedures Referred By Patricia neri Referred To Contact Sleep Medicine Diagnoses Dystonia Partial symptomatic epilepsy with complex partial seizures, not intractable, without status epilepticus Procedures EEG EEG Awake or Asleep Routine Regan Bruno MD Phone: tel: fax: [facility] [address] [place] [address] Phone: tel: Referral ID Status Reason Start Date Expiration Date Visits Re quested Visits Authorized [id number] Closed 02/28/2018 02/28/2019 1 1 Encounter Details Date Type Department Care Team (Latest Contact Info) Description 03/10/2018 12:00 PM EDT Hospital Encounter [facility] [address] [place] [address] Regan Bruno MD [address] [place] [address] Dystonia; Partial symptomatic epilepsy with complex partial [...] documented as of this encounter Care Teams Rn Mds Relationship Specialty Start Date End Date Kamlesh Abdullahi MD [address] [place], [place] [id number] PCP - General Internal Medicine 06/21/17 01/15/19 documented as of this encounter
--- OUTSIDE RECORDS SUMMARY | 2025-01-15 09:45 | XMS_ITS ---
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 Refer patient to NS.- waiting to reschedule appt. 3. Follow up in 2 months 4. refill tizanidine 4mg TID Pending Test Test Name Order Date Urine Test ANALYZER 01/15/2025 Next Appt Details Follow Up: 2 Months, Reason: Provider Name:Red cooney, 06/08/2025 02:15:00 PM, [address], [address], [place], [address], Procedure Notes * Category Sub-Category Detail Notes PROVIDER ENCOUNTER AND OVERSIGHT Consult Performed By: Cristina-Lotus MIRAMONTES 11/20/2024 2:58:33 PM > collaborated treatment plan with Red vallejo M.D., supervising physician who was present in office during consultation Progress Notes * Diamond LOUIEDOB: [birth year] (64 yo F)Acc No.[id number]:01/15/2025 FollowUP Patient: Chinedu LEMUS Diamond Provider: Tianna Tamayo II, M.D. :1960 A ge:64 Y S ex:Female Date:01/15/2025 Address:[address] [place], [place] [id number] Subjective: * Chief Complaints: * 1 . [...] of a left asymmetric disc bulge producing ivgicaor-az-ldmqui left neuroforaminal stenosis and subarticular recess narrowing. [...] with no relief A shira Therapy- At [facility] 1994 which helped after her stroke [...] History: L eft ankle surgery x2/ [facility] / with a 3 day stay 1999, Appendectomy/ [facility] / overnight stay 2003, Cholecystectomy/ [facility] / overnight stay 2002, LT Hand Surgery x2/ [facility] / with a 3 day stay 1976, Neck (cervical discetomy)Dr. Marc/ [facility] / over night stay 2004, RT Shoulder / [facility] / (OP) 1981, Tonsillectomy/ [facility] / (OP) 1965, Tubal abdominal ligation / in [place] / (OP) 1981, Bladder lift / [facility] / Dr. Alicia Crawford / (OP) 2005, Ovarien Cyst Rupture/ [facility] in [facility] / with a 3-4 day stay 1987, oophorectomy (left)/ [facility] / (OP) 2005, [place] teeth/ Dr. Hess / (OP) 1976, Hernia repair / [facility] / (OP) 03/14/2021. * Hospitalization/Major Diagno stic [...] * Vitals: * Examination: G eneral Examination: Nurse/Termite Inspector: Bethany gonzalez(MA-Ray)[place] 11/20/2024 2:29:18 PM > . [...] . Assessment: * Assessment: 1. O ther senior living (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 - Z79.899 (Primary) 2 [...] ENCOUNTER AND OVERSIGHT: Consult Performed By: Austin forbes(MANAGER CONTACT-RAY),L[facility]us 11/20/2024 2:58:33 PM > . c ollaborated treatment plan with Tianna Tamayo M.D., supervising physician who was present in office during consultation. * Follow Up: 2 Months * * Electronic signature of Nigel Tamayo II, M.D. on 05/17/2025 at 10:37 AM CDT Sign off status: Pending * Provider: Tianna Tamayo II, M.D. Date: 0 01/15/2025 Generated for Bacilio anna/Sajan/eTransmitting on: 0 05/17/2025 10:37 AM CDT History and Physical Notes * [...] of a left asymmetric disc bulge producing hktzscdi-cw-szefjg left neuroforaminal stenosis and subarticular recess narrowing. Far left lateral component encroaches upon and may abut or contact the exiting left L5 nerve root PHYSICAL/AQUA THERAPY/DME/OT HER HISTORY: Physical Therapy- 2018 with no relief Aqua Therapy- At [facility] 1994 which helped after her stroke [...] leads removed, tip intact. Sterile dressing applied Nurse/Termite Inspector: [place] Graham (MA-Lex) 11/20/2024 2:29:18 PM > [...]
--- OUTSIDE RECORDS SUMMARY | 2025-03-27 10:15 | XMS_ITS ---
Author Organization [facility] Address [address] [place] [address] Care Team Providers Care Change Advisor Name Role Phone Red Tamayo II Unavailable [phone] Jaelyn Guerrero Unavailable Unavailable Allergies Allergen [...] Reference Range Notes Urine Test ANALYZER Reviewed date:03/27/2025 03:17:43 PM Interpretation:+OXY Performing Lab: Notes/Report: +OXY Heroin Metabolite (6AM) NEG Amphetamine (AMP) NEG Benzodiazepine (EMANUEL) NEG Buprenorphine NEG Cocaine (KYLE) NEG Hydrocodone (HYD) NEG Methadone (MTD) NEG Opiate (OPI) NEG Oxycodone (OXY) POS REASON FOR VISIT ITP: Been over a year since psych eval and ITP Trial were done. If Pt wants to start this all over,send me a TE and I 'll send the psych eval request to [facility]. (Dr Lorenzo has ordered the trial w/fentanyl this time). Thx Kenyatta J, Neck pain, Low back pain, MARY shoulder pain Medications Medication SIG (Take, Route, Frequency, Duration) Notes Start Date End Date Status fenofibrate 145 mg 1 tab(s) orally once a day; Duration: 30 day(s) 10/29/2022 Active acetaminophen-oxycodon e 325 mg-7.5 mg 1 tab(s) orally 3 times a day; Duration: 28 days February 2025 RX DO NOT FILL SOONER THAN 28 DAYS, (OK TO FILL EARLY, ONLY IF CLOSED) Active Lidocaine Pain Relief Patch 4% 1 PATCH applied topically once a day; Duration: 30 days On for 12 hours, then remove for 12 hours 03/27/2025 Active acetaminophen-oxycodon e 325 mg-7.5 mg 1 tab(s) orally 3 times a day; Duration: 28 days March 2025 RX DO NOT FILL SOONER THAN 28 DAYS, (OK TO FILL EARLY, ONLY IF CLOSED) Active TiZANidine Hydrochloride 4 mg 1 tab(s) orally every 8 hours; Duration: 30 days Active buPROPion 150 mg/12 hours 1 tab(s) orally 2 times a day; Duration: 30 day(s) 10/29/2022 Active meclizine 25 mg 1 tab Oral tid prn; Duration: 15 days 10/29/2022 Active SUMAtriptan 6 mg/0.5 mL as directed subcutaneously once 10/29/2022 Active venlafaxine 150 mg 1 cap(s) orally once a day; Duration: 30 day(s) 10/29/2022 Active acyclovir 400 mg 1 tab(s) orally 2 times a day 10/29/2022 Active levothyroxine 75 mcg (0.075 mg) 1 tab(s) orally once a day Active benzonatate 100 mg 1 cap(s) orally 3 times a day; Duration: 5 day(s) 10/20/2022 Active Social History Alcohol Screen Question Answer Notes Did you have a drink contain ing alcohol in the past year? Yes How often did you have a dri nk containing alcohol in the past year? Monthly or less (1 point) Points 1 Interpretation Negative Vital Signs Blood pressure systolic 124 mm Hg 03/27/20 25 Blood pressure diastolic 79 mm Hg 025 Heart Rate 76 /min 03/27/2025 Height 65 in 03/27/2025 Weight 145 lbs 03/27/2025 BMI 24.13 kg/m2 03/27/2025 Encounters Encounter Location Date Provider Diagnosis [facility] [address] [place] [address] 03/27/2025 Red Tamayo Other snf (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 Z79.899 ; lumbar spondylosis M47.816 ; cervical spondylosis M47.812 ; Postlaminectomy syndrome, not elsewhere classified M96.1 and Complex regional pain syndrome I of right lower limb G90.521 Assessments Encounter Date Diagnosis (ICD Code) Assessment Notes Treatment Notes Treatment Clinical Notes Section Notes 03/27/2025 Other snf (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 (ICD-10 - Z79.899) 03/27/2025 1. Refill percocet 7.5/325mg TID 2. Refill tizanidine 4mg TID 3. Start Lidocaine patch daily as directed 4. Follow up in 1 month for 03/27/2025 Ms. Louie is a 64 year-old with complaints chronic low backk pain with radicular pain presents today for a follow up office visit for medication refill. Patient has underegone extensive treatment in the past including PT, HEP, po analgesics, ITP trial, and lumbar injection treatment. Patient states The pain medication does not seem to help any longer. I am afraid of the pain pump, especially with the use of fentyl and my allergies and sensitivity to medications. She reports 10 percent of pain relief for about 2 hours with current medication regimen. Again, patient declines ITP trial and any injections due to steroid makes her go crazy . It is noted that patient is taking benzodiazepienes along with opioids. I have discuused in great deal the risks of respitory depression and even . Patient states They have cut my Benzo's down to almost nothing in order to get me off of them. In the interim, she continues to refuse further injection therapy and ITP trials at this time r/t multiple medication allergies and expresses fear of side effects. Medication roe she does continue with the Percocet 7.5mg/325mg TID and Tizanidine 4mg TID. She denies any side effect of the medication. Johnathan and UDS were reviewed. Opioid risk assessment is low. 03/27/2025 lumbar spondylosis (ICD-10 - M47.816) 03/27/2025 Ms. Louie is a 64 year-old with complaints chronic low backk pain with radicular pain presents today for a follow up office visit for medication refill. Patient has underegone extensive treatment in the past including PT, HEP, po analgesics, ITP trial, and lumbar injection treatment. Patient states The pain medication does not seem to help any longer. I am afraid of the pain pump, especially with the use of fentyl and my allergies and sensitivity to medications. She reports 10 percent of pain relief for about 2 hours with current medication regimen. Again, patient declines ITP trial and any injections due to steroid makes her go crazy . It is noted that patient is taking benzodiazepienes along with opioids. I have discuused in great deal the risks of respitory depression and even . Patient states They have cut my Benzo's down to almost nothing in order to get me off of them. In the interim, she continues to refuse further injection therapy and ITP trials at this time r/t multiple medication allergies and expresses fear of side effects. Medication roe she does continue with the Percocet 7.5mg/325mg TID and Tizanidine 4mg TID. She denies any side effect of the medication. Johnathan and UDS were reviewed. Opioid risk assessment is low. 03/27/2025 cervical spondylosis (ICD-10 - M47.812) 03/27/2025 Ms. Louie is a 64 year-old with complaints chronic low backk pain with radicular pain presents today for a follow up office visit for medication refill. Patient has underegone extensive treatment in the past including PT, HEP, po analgesics, ITP trial, and lumbar injection treatment. Patient states The pain medication does not seem to help any longer. I am afraid of the pain pump, especially with the use of fentyl and my allergies and sensitivity to medications. She reports 10 percent of pain relief for about 2 hours with current medication regimen. Again, patient declines ITP trial and any injections due to steroid makes her go crazy . It is noted that patient is taking benzodiazepienes along with opioids. I have discuused in great deal the risks of respitory depression and even . Patient states They have cut my Benzo's down to almost nothing in order to get me off of them. In the interim, she continues to refuse further injection therapy and ITP trials at this time r/t multiple medication allergies and expresses fear of side effects. Medication reo she does continue with the Percocet 7.5mg/325mg TID and Tizanidine 4mg TID. She denies any side effect of the medication. Johnathan and UDS were reviewed. Opioid risk assessment is low. 03/27/2025 Postlaminectomy syndrome, not elsewhere classified (ICD-10 - M96.1) 03/27/2025 Ms. Louie is a 64 year-old with complaints chronic low backk pain with radicular pain presents today for a follow up office visit for medication refill. Patient has underegone extensive treatment in the past including PT, HEP, po analgesics, ITP trial, and lumbar injection treatment. Patient states The pain medication does not seem to help any longer. I am afraid of the pain pump, especially with the use of fentyl and my allergies and sensitivity to medications. She reports 10 percent of pain relief for about 2 hours with current medication regimen. Again, patient declines ITP trial and any injections due to steroid makes her go crazy . It is noted that patient is taking benzodiazepienes along with opioids. I have discuused in great deal the risks of respitory depression and even . Patient states They have cut my Benzo's down to almost nothing in order to get me off of them. In the interim, she continues to refuse further injection therapy and ITP trials at this time r/t multiple medication allergies and expresses fear of side effects. Medication roe she does continue with the Percocet 7.5mg/325mg TID and Tizanidine 4mg TID. She denies any side effect of the medication. Johnathan and UDS were reviewed. Opioid risk assessment is low. 03/27/2025 Complex regional pain syndrome I of right lower limb (ICD-10 - G90.521) 03/27/2025 Ms. Louie is a 64 year-old with complaints chronic low backk pain with radicular pain presents today for a follow up office visit for medication refill. Patient has underegone extensive treatment in the past including PT, HEP, po analgesics, ITP trial, and lumbar injection treatment. Patient states The pain medication does not seem to help any longer. I am afraid of the pain pump, especially with the use of fentyl and my allergies and sensitivity to medications. She reports 10 percent of pain relief for about 2 hours with current medication regimen. Again, patient declines ITP trial and any injections due to steroid makes her go crazy . It is noted that patient is taking benzodiazepienes along with opioids. I have discuused in great deal the risks of respitory depression and even . Patient states They have cut my Benzo's down to almost nothing in order to get me off of them. In the interim, she continues to refuse further injection therapy and ITP trials at this time r/t multiple medication allergies and expresses fear of side effects. Medication roe she does continue with the Percocet 7.5mg/325mg TID and Tizanidine 4mg TID. She denies any side effect of the medication. Johnathan and UDS were reviewed. Opioid risk assessment is low. Plan Of Treatment Medication Medication Name Sig Start Date Stop Date Notes acetaminophen-oxycodone 325 mg-7.5 mg 1 tab(s) orally 3 times a day; Duration: 28 days February 2025 RX DO NOT FILL SOONER THAN 28 DAYS, (OK TO FILL EARLY, ONLY IF CLOSED) Lidocaine Pain Relief Patch 4% 1 PATCH applied topically once a day; Duration: 30 days 03/27/2025 acetaminophen-oxycodone 325 mg-7.5 mg 1 tab(s) orally 3 times a day; Duration: 28 days March 2025 RX DO NOT FILL SOONER THAN 28 DAYS, (OK TO FILL EARLY, ONLY IF CLOSED) TiZANidine Hydrochloride 4 mg 1 tab(s) orally every 8 hours; Duration: 30 days Treatment Notes Assessment Notes 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 Refill percocet 7.5/325mg TID 2. Refill tizanidine 4mg TID 3. Start Lidocaine patch daily as directed 4. Follow up in 1 month for MD Next Appt Details Follow Up: 2 Months, Reason: Provider Name:Red cooney, 06/08/2025 02:15:00 PM, [address] [facility], [address], [address], Procedure Notes * Category Sub-Category Detail Notes PROVIDER ENCOUNTER AND OVERSIGHT Consult Performed By: Nikole SANTOS)Magali 03/27 03:25:49 PM EDT > collaborated treatment plan with Red vallejo M.D., supervising physician who was present in office during consultation Progress Notes * Diamond LOUIEDOB: [birth year] (64 yo F)Acc No.[id number]:03/27/2025 FollowUP Patient: Diamond JUAREZ Provider: Tianna Tamayo II, M.D. :1960 A ge:64 Y S ex:Female Date:03/27/2025 Address:[address] [place], [place] [address]LE[place] [id number] Subjective: * Chief Complaints: * 1 . ITP: Been over a year since psych eval and ITP Trial were done. If Pt wants to start this all over, send me a TE and I 'll send the psych eval request to [facility]. (Dr Lorenzo has ordered the trial w/fentanyl this time). Thx Kenyatta J. 2. Neck pain. 3. Low back pain. 4. MARY shoulder pain. * HPI: T ODAYS PAIN EVALUATION: 64 year old female presents with c/o MEDICATION FOLLOW UP: T he patient is currently prescribed Oxycodone 7.5/325mg TID, which provides 65% relief of pain symptoms for 2 hours. The last dose was taken 03/27/2025 Denies side effects. CURRENT PAIN SYMPTOMS: L [...] of a left asymmetric disc bulge producing vytgudrn-en-[id number] left neuroforaminal stenosis and subarticular recess narrowing. [...] with no relief A shira Therapy- At [facility] 1994 which helped after her stroke 0 [...] Previous Clinic . U RINE DRUG TESTIN 05/29/2024 Screen Expected 1 09/23/2023 Screen Expected 0 09/26/2024 Screen Expected Definitive Expected 0 11/20/2024 Screen Expected 0 01/30/2025 Screen Unexpected(-)Sent for Definitive, 0 03/27/2025, Screen Expected. M ONITORING:? M orphine Equivalent (MME): 34 K ASPER [...] History: a nxiety diagnosed managed by Jaelyn Godby INTAKE ASSESSOR , asthma diagnosed 1979 managed by [facility] , bipolar disorder diagnosed 1993 [facility] , COPD diagnosed 1979 managed by [facility] God[facility] INTAKE ASSESSOR , fibromyalgia diagnosed 1989 managed by [facility] INTAKE ASSESSOR , depression diagnosed managed by [facility] INTAKE ASSESSOR , seizures diagnosed 2016 managed by [facility] INTAKE ASSESSOR , Stroke diagnosed 1993 managed by [facility] God[facility] INTAKE ASSESSOR , Hypothyroidism diagnosed 1979 managed by [facility] INTAKE ASSESSOR , scoliosis diagnosed 1979 managed by [facility] INTAKE ASSESSOR , Degenerative disc disease diagnosed 1999 managed by Jaelyn Godby INTAKE ASSESSOR. * Surgical History: L eft ankle surgery x2/ [facility] / with a 3 day stay 1999, Appendectomy/ [facility] / overnight stay 2003, Cholecystectomy/ [facility] / overnight stay 2002, LT Hand Surgery x2/ [facility] / with a 3 day stay 1976, Neck (cervical discetomy)Dr. Marc/ [facility] / over night stay 2004, RT Shoulder / [facility] / (OP) 1981, Tonsillectomy/ [facility] / (OP) 1965, Tubal abdominal ligation / in [place] / (OP) 1981, Bladder lift / [facility] / Dr. Alicia Crawford / (OP) 2005, Ovarien Cyst Rupture/ Kenyatta A Elvis in [facility] / with a 3-4 day stay 1987, oophorectomy (left)/ [facility] / (OP) 2005, [place] teeth/ Dr. Hess / (OP) 1976, Hernia repair / [facility] / (OP) 03/14/2021. * Hospitalization/Major Diagno stic Procedure: B owel obstruction / / treated and released 02/2021, Coughing/ [facility]/1 [...] nterpretation N egative. * Medications: T aking levothyroxine 75 mcg (0.075 mg) tablet 1 tab(s) orally once a day , Taking TiZANidine Hydrochloride 4 mg tablet 1 tab(s) orally every 8 hours , Taking benzonatate 100 mg capsule 1 [...] orally 2 times a day , Taking meclizine 25 mg 1 tab Oral tid prn , Taking fenofibrate 145 mg tablet 1 tab(s) orally once a day , Taking acetaminophen-oxycodone 325 mg-7.5 mg tablet 1 tab(s) orally 3 times a day * Allergies: N eosporin: rash - Allergy, codeine: anaphylaxis - Allergy, diphenhydramine: hives - Allergy, morphine: anaphylaxis - Allergy, prednisone: anaphylaxis - Allergy, ibuprofen: hives - Allergy, methadone: stomach upset - Side Effects, Soma: hives - Allergy, Dilaudid: hives - Allergy. Objective: * Vitals: B P: 124/79, HR: 76, Pain VAS (0-10): 7, Ht: 65, Wt: 145, BMI:24.13Index. * Examination: G eneral Examination: Nurse/Drafting Technician: Juan hess (MA-Ray) Rianna 03/27/2025 02:44:00 PM EDT >. General Appearance: NAD, well nourished and hydrated. [...] . Assessment: * Assessment: 1. O ther snf (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 - Z79.899 (Primary) 2 . l umbar spondylosis - M47.816 3 . c ervical spondylosis - M47.812 4 .?Postlaminectomy syndrome, not elsewhere classified - M96.1 5 . C omplex regional pain syndrome I of right lower limb - G90.521 03/27/2025 Ms. Louie is a 64 y ear-old with complaints chronic low backk pain with radicular pain presents t liana for a follow up o ffice visit for medication refill. Patient has underegone extensive treatment in the past including PT, HEP, po analgesics, ITP trial, and l umbar injection treatment. Patient states T he pain medication does not seem to help any longer. I am afraid of the pain pump, especially with the use of fentyl and my allergies and sensitivity to medications. She reports 10 percent of pain relief for about 2 hours with current medication regimen. Again, patient declines ITP trial and any injections due to steroid makes her go crazy . It is noted that patient is taking benzodiazepienes along with opioids. I have discuused in great deal the risks of respitory depression and even . Patient states They have cut my Benzo's down to almost nothing in order to get me off of them. In the interim, she continues to refuse further injection therapy and ITP trials at this time r/t multiple medication allergies and expresses fear of side effects. Medication roe she does continue with the Percocet 7.5mg/325mg TID and Tizanidine 4mg TID. She denies any side effect of the medication. Johnathan and UDS were reviewed. Opioid risk assessment is low. Plan: * Treatment: Value Reference Range H eroin Metabolite (6AM) NEG * A mphetamine (AMP) NEG * B enzodiazepine (EMANUEL) NEG * B uprenorphine NEG * C ocaine (KYLE) NEG * H ydrocodone (HYD) NEG * M ethadone (MTD) NEG * O piate (OPI) NEG * O xycodone (OXY) POS POS * Miguel, Kalli 03/27/2025 03:10: 19 PM EDT >Nikole ( CLOTH BLEACHING RANGE TENDER-RAY)Magali 03/27/2025 03:25:25 PM EDT > Appropriate. Do not send for confirmation Notes: 03/27/2025 1. Refill percocet 7.5/325mg TID 2. Refill tizanidine 4mg TID 3. Start Lidocaine patch daily as directed 4. Follow up in 1 month for MD?? * Procedures: Chelsi SMITH ENCOUNTER AND OVERSIGHT: Consult Performed By: Austin briseno ( CLOTH BLEACHING RANGE TENDER-RAY)Magali 03/27/2025 03:25:49 PM EDT >. c ollaborated treatment plan with Tianna Tamayo M.D., supervising physician who was present in office during consultation. * Follow Up: 2 Months * * Sign off status: Completed true * Provider: Tianna Tamayo II, M.D. Date: 0 03/27/2025 Generated for Bacilio anna/Sajan/Kimsmitting on: 0 05/17/2025 10:37 AM CDT History [...] of a left asymmetric disc bulge producing tglkyjcl-ub-nwgfdv left neuroforaminal stenosis and subarticular recess narrowing. Far left lateral component encroaches upon and may abut or contact the exiting left L5 nerve root PHYSICAL/AQUA THERAPY/DME/OT HER HISTORY: Physical Therapy- 2019 with no relief Aqua Therapy- At [facility] 1994 which helped after her stroke 01/30/2025 [...] benzodiazepine Discharge from Previous Clinic URINE DRUG TESTIN05/29/2024 Screen Ex pected 07/24/2024 Screen Expected 09/26/2024 Screen Expected Definitive Expected 11/20/2024 Screen Expected 01/30/2025 Screen Unexpected(-)Sent for Definitive, 03/27/2025, Screen Expected MONITORING: Morphine Equivalent (MME): 34 JOHNATHAN reviewed today and appropriate TESTING/RISK ASSESSMENTS ORT Score/Result: 23( OCD, Bipolar, Depression, Family history of substance abuse, Personal history of substance abuse) TODAYS PAIN EVALUATION MEDICATION FOLLOW UP: The patient is currently prescribed Oxycodone 7.5/325mg TID, which provides 65% relief of pain symptoms for 2 hours. The last dose was taken 03/27/2025 Denies side effects CURRENT PAIN SYMPTOMS: Location [...] leads removed, tip intact. Sterile dressing applied Nurse/Drafting Technician: Mario Jhaveri)Jay 03/27/2025 02:44:00 PM EDT > Cervical Spine/Neck Vertebral spine tenderness: tenderness [...]
--- OUTSIDE RECORDS SUMMARY | 2025-04-23 10:45 | XMS_ITS ---
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 Refill Percocet 7.5/325mg TID 2. Refill Tizanidine 4mg TID 3. Refill Lidocaine patch daily as directed 4. Follow up in 1 month for MD Pending Test Test Name Order Date Urine Test ANALYZER 04/23/2025 Next Appt Details Follow Up: 2 Months, Reason: Provider Name:Red cooney, 06/08/2025 02:15:00 PM, [address] [facility], [address], [address], Progress Notes * Diamond LOUIEDOB: [birth year] (64 yo F)Acc No.[id number]:04/23/2025 Patient: Chinedu Diamond LEMUS Provider: Humera Albarran MD :1960 A ge:64 Y S ex:Female Date:04/23/2025 Address:[address] [place] [address] [id number] Subjective: * Chief Complaints: * 1 . [...] of a left asymmetric disc bulge producing ukbpedps-dm-awnnuz left neuroforaminal stenosis and subarticular recess narrowing. [...] with no relief A shira Therapy- At [facility] 1994 which helped after her stroke 0 [...] History: L eft ankle surgery x2/ [facility] / with a 3 day stay 1999, Appendectomy/ [facility] / overnight stay 2003, Cholecystectomy/ [facility] / overnight stay 2002, LT Hand Surgery x2/ [facility] / with a 3 day stay 1976, Neck (cervical discetomy)Dr. Marc/ [facility] / over night stay 2004, RT Shoulder / [facility] / (OP) 1981, Tonsillectomy/ [facility] / (OP) 1965, Tubal abdominal ligation / in [place] / (OP) 1981, Bladder lift / [facility] / Dr. Alicia Crawford / (OP) 2005, Ovarien Cyst Rupture/ [facility] in [facility] / with a 3-4 day stay 1987, oophorectomy (left)/ [facility] / (OP) 2005, [place] teeth/ Dr. Hess / (OP) 1976, Hernia repair / [facility] / (OP) 03/14/2021. * Hospitalization/Major Diagno [...] * Vitals: * Examination: G eneral Examination: Nurse/Waste Water Treatment Plant Operator: Juan Jean-BaptisteMA-Ray)Rianna 03/27/2025 02:44:00 PM EDT >. [...] Electronic signature of Kj Albarran M.D. on 05/17/2025 at 10:36 AM CDT Sign off status: Pending * Provider: Humera Albarran MD Date: 0 04/23/2025 Generated for Bacilio anna/Sajan/Juan on: 0 05/17/2025 10:36 AM CDT History and Physical Notes * [...] of a left asymmetric disc bulge producing arhynryq-uj-vkwdcr left neuroforaminal stenosis and subarticular recess narrowing. Far left lateral component encroaches upon and may abut or contact the exiting left L5 nerve root PHYSICAL/AQUA THERAPY/DME/OT HER HISTORY: Physical Therapy- 2018 with no relief Aqua Therapy- At [facility] 1994 which helped after her stroke 01/30/2025 [...] leads removed, tip intact. Sterile dressing applied Nurse/Waste Water Treatment Plant Operator: Jay Martin (MA-Lex) 03/27/2025 02:44:00 PM EDT [...]
--- OUTSIDE RECORDS SUMMARY | 2025-04-26 10:30 | XMS_ITS ---
Author Organization [facility] Address [address] [place] [address] Care Team Providers Care Voice Network Administrator Name Role Phone Red Tamayo II [...] Reference Range Notes Urine Test ANALYZER Reviewed date:04/27/2025 06:53:44 AM Interpretation:+OXY Performing Lab: Notes/Report: +OXY Heroin Metabolite (6AM) NEG Amphetamine (AMP) NEG Benzodiazepine (EMANUEL) NEG Buprenorphine NEG Cocaine (KYLE) NEG Methadone (MTD) NEG Opiate (OPI) NEG Oxycodone (OXY) POS REASON FOR VISIT Neck pain, Low back [...] 3 times a day; Duration: 28 days April 2025 RX DO NOT FILL SOONER THAN 28 DAYS, (OK TO FILL EARLY, ONLY IF CLOSED) Active TiZANidine Hydrochloride 4 mg 1 tab(s) orally every 8 hours; Duration: 30 days Active meclizine 25 mg 1 tab Oral tid prn; Duration: 15 days 10/29/2022 Active fenofibrate 145 mg 1 tab(s) orally once a day; Duration: 30 day(s) 10/29/2022 Active acyclovir 400 mg 1 tab(s) orally 2 times a day 10/29/2022 Active buPROPion 150 mg/12 hours 1 tab(s) orally 2 times a day; Duration: 30 day(s) 10/29/2022 Active venlafaxine 150 mg 1 cap(s) orally once a day; Duration: 30 day(s) 10/29/2022 Active SUMAtriptan 6 mg/0.5 mL as directed subcutaneously once 10/29/2022 Active benzonatate 100 mg 1 cap(s) orally 3 times a day; Duration: 5 day(s) 10/20/2022 Active Lidocaine Pain Relief Patch 4% 1 PATCH applied topically once a day; Duration: 30 days On for 12 hours, then remove for 12 hours Active levothyroxine 75 mcg (0.075 mg) 1 tab(s) orally once a day Active Social History Alcohol Screen Question Answer Notes Did you have a drink contain ing alcohol in the past year? Yes How often did you have a dri nk containing alcohol in the past year? Monthly or less (1 point) Points 1 Interpretation Negative Vital Signs Blood pressure systolic 139 mm Hg 04/26/20 25 Blood pressure diastolic 79 mm Hg 025 Heart Rate 90 /min 04/26/2025 Height 65 in 04/26/2025 Weight 145 lbs 04/26/2025 BMI 24.13 kg/m2 04/26/2025 Encounters Encounter Location Date Provider Diagnosis [facility] [address] [place] [address] 04/26/2025 Red Tamayo Other snf (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 Z79.899 ; lumbar spondylosis M47.816 ; cervical spondylosis M47.812 ; Postlaminectomy syndrome, not elsewhere classified M96.1 and Complex regional pain syndrome I of right lower limb G90.521 Assessments Encounter Date Diagnosis (ICD Code) Assessment Notes Treatment Notes Treatment Clinical Notes Section Notes 04/26/2025 Other intermediate designer (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 (ICD-10 - Z79.899) 04/26/2025 1. Refill percocet 7.5/325mg TID 2. Refill tizanidine 4mg TID 3. Refill Lidocaine patch daily as directed 4. Order TENS unit 5. Follow up in 2 months 03/27/2025 Ms. Louie is a 64 year-old with complaints chronic low back pain who presents today for a follow up office visit for medication refill. Continues to report low back pain with with radicular pain. Also complains of bilateral shoulder pain. Describes pain as aching, burning, cramping, sharp, stabbing, numb, and tingling. Rates 10/10 on todays visit. She reports 20 percent of pain relief for about 2-3 hours with current medication regimen. It is noted that patient is taking [...] were reviewed. Opioid risk assessment is low. 04/26/2025 lumbar spondylosis (ICD-10 - M47.816) 03/27/2025 Ms. Louie is a 64 year-old with complaints chronic low back pain who presents today for a follow up office visit for medication refill. Continues to report low back pain with with radicular pain. Also complains of bilateral shoulder pain. Describes pain as aching, burning, cramping, sharp, stabbing, numb, and tingling. Rates 10/10 on todays visit. She reports 20 percent of pain relief for about 2-3 hours with current medication regimen. It is noted that patient is taking [...] were reviewed. Opioid risk assessment is low. 04/26/2025 cervical spondylosis (ICD-10 - M47.812) 03/27/2025 Ms. Louie is a 64 year-old with complaints chronic low back pain who presents today for a follow up office visit for medication refill. Continues to report low back pain with with radicular pain. Also complains of bilateral shoulder pain. Describes pain as aching, burning, cramping, sharp, stabbing, numb, and tingling. Rates 10/10 on todays visit. She reports 20 percent of pain relief for about 2-3 hours with current medication regimen. It is noted that patient is taking [...] were reviewed. Opioid risk assessment is low. 04/26/2025 Postlaminectomy syndrome, not elsewhere classified (ICD-10 - M96.1) 03/27/2025 Ms. Louie is a 64 year-old with complaints chronic low back pain who presents today for a follow up office visit for medication refill. Continues to report low back pain with with radicular pain. Also complains of bilateral shoulder pain. Describes pain as aching, burning, cramping, sharp, stabbing, numb, and tingling. Rates 10/10 on todays visit. She reports 20 percent of pain relief for about 2-3 hours with current medication regimen. It is noted that patient is taking [...] were reviewed. Opioid risk assessment is low. 04/26/2025 Complex regional pain syndrome I of right lower limb (ICD-10 - G90.521) 03/27/2025 Ms. Louie is a 64 year-old with complaints chronic low back pain who presents today for a follow up office visit for medication refill. Continues to report low back pain with with radicular pain. Also complains of bilateral shoulder pain. Describes pain as aching, burning, cramping, sharp, stabbing, numb, and tingling. Rates 10/10 on todays visit. She reports 20 percent of pain relief for about 2-3 hours with current medication regimen. It is noted that patient is taking [...] 3 times a day; Duration: 28 days April 2025 RX DO NOT FILL SOONER THAN 28 DAYS, (OK TO FILL EARLY, ONLY IF CLOSED) TiZANidine Hydrochloride 4 mg 1 tab(s) orally every 8 hours; Duration: 30 days Lidocaine Pain Relief Patch 4% 1 PATCH applied topically once a day; Duration: 30 days Treatment Notes Assessment Notes Other intermediate designer (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 04/26/2025 1. Refill percocet 7.5/325mg TID 2. Refill tizanidine 4mg TID 3. Refill Lidocaine patch daily as directed 4. Order TENS unit 5. Follow up in 2 months Next Appt Details Follow Up: 2 Months, Reason: Provider Name:Red cooney, 06/08/2025 02:15:00 PM, [address], [address], [address], Procedure Notes * Category Sub-Category Detail Notes PROVIDER ENCOUNTER AND OVERSIGHT Consult Performed By: Nikole Jean-Baptiste NP-Magali MIRAMONTES 03/27 03:25:49 PM EDT > collaborated treatment plan with Red vallejo M.D., supervising physician who was present in office during consultation Progress Notes * Diamond LOUIEDOB: [birth year] (64 yo F)Acc No.[id number]:04/26/2025 FollowUP Patient: Arturo JUAREZca Provider: Tianna Tamayo II, M.D. :1960 A ge:64 Y S ex:Female Date:04/26/2025 Address:[address] [place] [address] [id number] Subjective: * Chief Complaints: * N michelle painLow back painBIL shoulder pain * HPI: T ODAYS PAIN EVALUATION: 64 year old female presents with c/o MEDICATION FOLLOW UP: T he patient is currently prescribed Oxycodone 7.5/325mg TID, which provides 20% relief of pain symptoms for 2 -3 hours. The last dose was taken 04/26/2025 Denies side effects. CURRENT PAIN SYMPTOMS: L ocation of Worst Pain: L ow Back, P ain Frequency: c onstant, fluctuating, always, P ain Description: a emmett, burning, cramping, sharp, stabbing, numb, tingling, A verage Pain Score VAS: 1 0, P ain Exacerbation: my life, P ain Alleviation: laying down, A DL/Quality of Life Interference: Everything, mental, emo, phys. P ERTINENT INFORMATION: p higinio is interested in a tens unit and physical therapy. P AIN MANAGEMENT TREATMENT HISTORY: IMAGING HISTORY: 11/01/2017 MRI CERVICAL -Stable posterior disc osteophyte complex at the C4/C5 level creating no new central spinal canal stenosis. Very little interval change when compared to the prior study. 04/21/2018 MRI LUMBAR -Multilevel spondylitic changes, greatest at the L5-S1 level, where there is far left lateral components of a left asymmetric disc bulge producing vgdltqoy-lu-yqoaiw left neuroforaminal stenosis and subarticular recess narrowing. Far left lateral component encroaches upon and may abut or contact the exiting left L5 nerve root . P REVIOUS INJECTION\PROCEDURE HISTORY: 02/15/2020- #1 LMBB MARY L234 with 80% relief for 1 week 03/21/2020- #2 LMBB MARY L3, L4, L5 80% relief for 5 days 05/09/2020-#1 RFA MARY LMBB L3,L4,L5 75-80% relief for one month. 09/11/2020-#1 RFA LT L2,L3,L4 with 50% pain relief for 1 month. 01/16/2021- Lumbar SCS (6 Day) Trial with greater than 80% pain reduction, obtained 100% increase in activity, 80% improvement in sleep, and 75% pain medication reduction. 06/18/2022- ITP Trial, 80% relief for 7 days . P HYSICAL/AQUA THERAPY/DME/OTHER HISTORY: Physical Therapy- 2019 with no relief Aqua Therapy- At [facility] 1994 which helped after her stroke 01/30/2025 No therapies reported pt denies . P ERTINENT SURGICAL EVALUATIONS/SPECIALIST CONSULTS No prior surgical consult . P REVIOUS PAIN CLINIC CARE: Dr. Al Jin . S ALBERTMARY OF INITIAL EVALUATION: 09/26/2019- New patient consult [...] . C OMPLIANCE: RISK ASSESSMENT AND STRATIFICATION: RISK GROUP: HIGH RISK Due to: Depression, Multiple Co-Morbidities Concominant use of the following medications: benzodiazepine Discharge from Previous Clinic . U RINE DRUG TESTIN07/24/2024 Screen Expected 09/26/2024 Screen Expected Definitive Expected 11/20/2024 Screen Expected 01/30/2025 Screen Unexpected(-)Sent for Definitive, 03/27/2025, Screen Expected 04/26/2025,,Screen Expected. M ONITORING: Morphine Equivalent (MME): 34 JOHNATHAN reviewed today and appropriate . T ESTING/RISK ASSESSMENTS ORT Score/Result: 23( OCD, Bipolar, Depression, [...] d enies endocrine issues. * Medical History: * Surgical History: L eft ankle surgery x2/ [facility] / with a 3 day stay 1999Appendectomy/ [facility] / overnight stay 2004Cholecyst[facility]/ [facility] / [facility] stay 2003[facility] 1976[facility] 2005RT Shoulder / [facility] / (OP) 1982[facility] 1966Tubal abdominal ligation / in [place] / (OP) 1981[facility] Dr. Alicia Crawford / (OP) 2005Ovarien Cyst Rupture/ [facility] in [facility] / with a 3-4 day stay 1987oophorectomy (left)/ [facility] / (OP) 2005[place] teeth/ Dr. Hess / (OP) 1976Hernia repair / [facility] / (OP) 03/14/2021 * Hospitalization/Major Diagno stic Procedure: B owel obstruction / / treated and released oughing/ [facility]/1 day stay 01/2025 * Family History: Family history of substance [...] I nterpretation N egative. * Medications: T akingacetaminophen-oxycodone 325 mg-7.5 mg tablet 1 tab(s) orally 3 times a day TiZANidine Hydrochloride 4 mg tablet 1 tab(s) orally every 8 hours Lidocaine Pain Relief Patch 4% film 1 PATCH applied topically once a day On for 12 hours, then remove for 12 hourslevothyroxine 75 mcg (0.075 mg) tablet 1 tab(s) orally once a day benzonatate 100 mg capsule 1 cap(s) orally 3 times a day SUMAtriptan 6 mg/0.5 mL solution as directed subcutaneously once venlafaxine 150 mg capsule, extended release 1 cap(s) orally once a day acyclovir 400 mg tablet 1 tab(s) orally 2 times a day buPROPion 150 mg/12 hours tablet, extended release 1 tab(s) orally 2 times a day meclizine 25 mg 1 tab Oral tid prn fenofibrate 145 mg tablet 1 tab(s) orally once a day Taking acetaminophen-oxycodone 325 mg-7.5 mg tablet 1 tab(s) orally 3 times a day Taking TiZANidine Hydrochloride 4 mg tablet 1 tab(s) orally every 8 hours Taking Lidocaine Pain Relief Patch 4% film 1 PATCH applied topically once a day On for 12 hours, then remove for 12 hoursTaking levothyroxine 75 mcg (0.075 mg) tablet 1 tab(s) orally once a day Taking benzonatate 100 mg capsule 1 cap(s) orally 3 times a day Taking SUMAtriptan 6 mg/0.5 mL solution as directed subcutaneously once Taking venlafaxine 150 mg capsule, extended release 1 cap(s) orally once a day Taking acyclovir 400 mg tablet 1 tab(s) orally 2 times a day Taking buPROPion 150 mg/12 hours tablet, extended release 1 tab(s) orally 2 times a day Taking meclizine 25 mg 1 tab Oral tid prn Taking fenofibrate 145 mg tablet 1 tab(s) orally once a day * Allergies: N eosporin: rash - Allergycodeine: anaphylaxis - Allergydiphenhydramine: hives - Allergymorphine: anaphylaxis - Allergyprednisone: anaphylaxis - Allergyibuprofen: hives - Allergymethadone: stomach upset - Side EffectsSoma: hives - AllergyDilaudid: hives - Allergyno[Allergies Verified] Objective: * Vitals: B P: 139/79, HR: 90, Pain VAS (0-10): 10, Ht: 65, Wt: 145, BMI:24.13Index. * Examination: G eneral Examination: Nurse/Electronic Scale Subassembler: Obey Blackman (MA LEX) 04/26/2025 02:31:49 PM EDT >. General Appearance: NAD, well [...] 64 y ear-old with complaints chronic low back pain who presents t liana for a follow up o ffice visit for medication refill. Continues to report low back pain with with radicular pain. Also complains of bilateral shoulder pain. Describes pain as aching, burning, cramping, sharp, stabbing, numb, and tingling. R ates 10/10 on todays visit. S he reports 20 percent of pain relief for about 2-3 hours with current medication regimen. It is noted that patient is taking [...] NEG * C ocaine (KYLE) NEG * M ethadone (MTD) NEG * O piate (OPI) NEG * O xycodone (OXY) POS POS * Kalli Rivera 04/26/2025 03:05: 21 PM EDT >Nikole ( ADRIAN-RAY)Magali 04/26/2025 05:00:21 PM EDT > Appropriate. Do not send for confirmation Notes: 04/26/2025 1. Refill percocet 7.5/325mg TID 2. Refill tizanidine 4mg TID 3. Refill Lidocaine patch daily as directed 4. Order TENS unit 5. Follow up in 2 months?? * Procedures: Chelsi SMITH ENCOUNTER AND OVERSIGHT: Consult Performed By: Austin briseno ( ADRIAN-RAY)Magali 03/27/2025 03:25:49 PM EDT >. c ollaborated treatment plan with Tianna Tamayo M.D., supervising physician who was present in office during consultation. * Procedure Codes: * Follow Up: 2 Months * * Sign off status: Completed true * Provider: Tianna Tamayo II, M.D. Date: 04/26/2025 Generated for Bacilio anna/Sajan/Juan on: 0 05/17/2025 [...] of a left asymmetric disc bulge producing dqkbpawd-ei-wcfmxz left neuroforaminal stenosis and subarticular recess narrowing. Far left lateral component encroaches upon and may abut or contact the exiting left L5 nerve root PHYSICAL/AQUA THERAPY/DME/OT HER HISTORY: Physical Therapy- 2018 with no relief Aqua Therapy- At [facility] 1994 which helped after her stroke [...] benzodiazepine Discharge from Previous Clinic URINE DRUG TESTIN07/24/2024 Screen Ex pected 09/26/2024 Screen Expected Definitive Expected 11/20/2024 Screen Expected 01/30/2025 Screen Unexpected(-)Sent for Definitive, 03/27/2025, Screen Expected 04/26/2025,,Screen Expected MONITORING: Morphine Equivalent (MME): 34 JOHNATHAN reviewed today and appropriate TESTING/RISK ASSESSMENTS ORT Score/Resul t: 23( OCD, Bipolar, Depression, Family history of substance abuse, Personal history of substance abuse) TODAYS PAIN EVALUATION MEDICATION FOLLOW UP: The patient is currently prescribed Oxycodone 7.5/325mg TID, which provides 20% relief of pain symptoms for 2-3 hours. The last dose was taken 04/26/2025 Denies side effects CURRENT PAIN SYMPTOMS: Location of Worst Pain:: Low Back Pain Frequency:: constant, fluctuating, always Pain Description:: aching, b urning, cramping, sharp, stabbing, numb, tingling Average Pain Score VAS:: 10 Pain Exacerbation:: my life Pain Alleviation:: laying down ADL/Quality of Life Interference:: Every thing, mental, emo, phys PERTINENT INFORMATION: patient is intere sted in a tens unit and physical therapy Examination Category Sub-Category Detail Notes Category Not [...] removed, tip intact. Sterile dressing applied Nurse/Electronic Scale Subassembler: Tyler Douglas (MA LEX) 04/26/2025 02:31:49 PM EDT > Cervical Spine/Neck Vertebral spine [...]
--- OUTSIDE RECORDS SUMMARY | 2025-05-17 11:37 | XMS_ITS | Clinical Summary ---
Author Organization [facility] Address [address] [place] [address] Care Team Providers Care Destination Imagination Coordinator Name Role Phone Red Tamayo MD Primary Care Provider [phone] Allergies Active Allergy Reactions Criticality Noted Date [...] 11/23/19 Active Narcan 4 MG/0.1ML nasal spray [place] Nasal Use as directed in case of overdose 08/20/20 Active vitamin D (ERGOCALCIFEROL) 1.25 MG (08099 UT) capsule capsule Take 1 capsule by [...] 08/06/2018 08/06/2017 MAMMOGRAM 12/27/2020 12/27/2018, 11/28 (Declined) INFLUENZA VACCINE 03/30/2025 06/02/2018 (De clined), 08/05/2017 (Declined), 07/22/2016, Additional history exists COVID-19 Vaccine (1 - 2023-2 5 season) 2025 COLONOSCOPY 08/05/2026 08/05/2016, 11/29, 12/19/2012 COLORECTAL CANCER [...] mammogram report. [place]. [address] NOTE: If a biopsy is performed on [...] architectural distortion or clustered microcalcifications. Shannon Campbell PHARMACY TECH CUSTOMER SERVICE IMG MAMMOGRAPHY ORDERABL ES Final Result * Hepatitis panel, acute (08/06/2017 9:40 AM EST) Pathologist [facility] Hep A IgM Negative Negative 08/10/2017 5:11 [...] with a HCV Nucleic Acid Amplification test ([id number]). Blood Venipuncture / Unknown 08/06/2017 9:40 AM EST 08/06/2017 10:11 AM EST Narrative [facility] - 08/10/2017 5:11 AM EST Performed at: - [address] [id number] Vortex Operator: Costa Munoz PhD, Phone: [phone] us Kamlesh Abdullahi MD LAB BLOOD ORDERABLES Final Re sult [address] [address], * (ABNORMAL) Lipid Panel (08/06/2017 9:40 AM EST) Pathologist [facility] Total Cholesterol 234(H) 0 - 199 mg/dL 08/06/2017 10:31 AM EST [facility] Triglycerides 97 <150 mg/dL 08/06/2017 10:31 AM EST [facility] HDL Cholesterol 61(H) 40 - 60 mg/dL 08/06/2017 10:31 AM EST [facility] LDL Cholesterol 154(H) 0 - 99 mg/dL 08/06/2017 10:31 AM EST [facility] VLDL Cholesterol 19.4 mg/dL 12/08/20 17 10:31 AM EST [facility] LDL/HDL Ratio 2.52 08/06/2017 10:31 AM EST [facility] Blood Venipuncture / Unknown 08/06/2017 9:40 AM EST 08/06/2017 10:11 AM EST Narrative [facility] - 08/06/2017 10:31 AM EST Reference ranges for triglycerides, VLDL cholesterol, LDL cholesterol, and HDL cholesterol are not true population normal ranges but are threshold levels for increased risk of coronary artery disease established by ATP III guidelines from the National Cholesterol Education Program. us Kamlesh Abdullahi MD LAB BLOOD ORDERABLES Final Re sult [facility]
[address] [place] [address], from Last 3 Months or Most Recently Relevant to Health Maintenance Additional Health Concerns Infection Onset Date Last Indicated COVID (History) 03/11/2021 03/11/2021 Insurance * Guarantor: Diamond Damon Account Type Relation to Patient Date of Phone Billing Address Personal/Family Self 1960 [id number] [place] [address] [place]ICA[place] Advance Directives Documents on File Type Date Recorded Patient Insole Rasper Expl anation PATIENT ADVANCE DIRECTIVES - SCAN 03/17/2023 3:46 PM PATIENT ADVANCE DIRECTIVES, [facility], 06/13/2017 PATIENT ADVANCE DIRECTIVES - SCAN 03/17/2022 12:56 PM ADVANCE DIRECTIVE PATIENT ADVANCE DIRECTIVES - SCAN 02/13/2022 10:35 AM ADVANCE DIRECTIVE PATIENT ADVANCE DIRECTIVES - SCAN 03/05/2021 10:34 AM PATIENT ADVANCE DIRECTIVE, [facility], 06/13/2017 PATIENT ADVANCE DIRECTIVES - SCAN 11/27/2020 8:49 AM Care Teams Destination Imagination Coordinator Relationship Specialty Start Date End Date Red Tamayo MD [address] [place] [address] PCP - General Pain Medicine 12/29/23
--- OUTSIDE RECORDS SUMMARY | 2025-05-17 11:37 | XMS_ITS | Encounter Summary ---
Author Organization [facility] Address [address] [place] [address] Care Team Providers Care Neonatal Doctor Name Role Phone Red Tamayo MD Primary Care Provider [phone] Encounter Details Date Type Department Care Team (Late st Contact Info) Description 09/07/2017 Telephone [facility] [address] [phone] Kamlesh Abdullahi MD [address] [address] Social History Tobacco Use Types [...] documented as of this encounter Care Teams Neonatal Doctor Relationship Specialty Start Date End Date Red Tamayo MD [address] [place] [address] PCP - General Pain Medicine 12/29/23 documented as of this encounter
--- OUTSIDE RECORDS SUMMARY | 2025-05-17 11:37 | XMS_ITS | Patient Health Record ---
Author Organization [facility] Address [address] [place] [address] [address] [place] [address] Care Team Providers Care Mixing House Operator Name Role Phone Jaelyn Guerrero Unavailable Unavailable [...] Status Risk Notes Problem Chronic pain syndrome (914879450) Chronic pain syndrome (G89.4) Active confirmed Problem Complex regional pain syndrome type I of right lower limb (disorder) (02664666174823 9) Complex regional pain syndrome I of right lower limb (G90.521) Active confirmed Problem Complex regional pain syndrome of lower limb (disorder) (320843871) Complex regional pain syndrome I of unspecified lower limb (G90.529) Active confirmed Problem Post-laminectom y syndrome (07317504) Postlaminectomy syndrome, not elsewhere classified (M96.1) Active confirmed Problem Long-term current use of drug therapy (068512991) Other [facility]p (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 (Z79.899) Active confirmed Problem Lumbar spondylosis (590015336) lumbar spondylosis (M47.816) Active confirmed Problem Cervical spondylosis (084375240) cervical spondylosis (M47.812) Active confirmed Plan Of Treatment Pending Test Test Name Order Date Urine Test LCMS Definitive 08/16/2023 Insurance Providers Payer Name Payer Address Payer Phone Subscriber Number Group Number Insured Name Patient Relationship to Insured Coverage Start Date Coverage End Date [place] Medicaid [address] [place] [phone] [id number] Diamond Damon Self - patient is the insured 9 Medical (General) History Medical History History ICD Code anxiety-/Jaelyn Renteria INPATIENT SERVICES DIRECTOR asthma-1979/Jaelyn Renteria INPATIENT SERVICES DIRECTOR bipolar disorder-1993/Jaelyn Renteria INPATIENT SERVICES DIRECTOR COPD-1979/Jaelyn Renteria INPATIENT SERVICES DIRECTOR fibromyalgia-1989/Jaelyn Godkelley INPATIENT SERVICES DIRECTOR depression-/Jaelyn Renteria INPATIENT SERVICES DIRECTOR [id number] an issue/Jaelyn Martinez odkelley INPATIENT SERVICES DIRECTOR Stroke-1993/Jaelyn Renetria INPATIENT SERVICES DIRECTOR Hypothyroidism-1979/Jaelyn Renteria INPATIENT SERVICES DIRECTOR [id number]/Jaelyn Renteria INPATIENT SERVICES DIRECTOR Degenerative disc disease-1999/Jaelyn Go dby INPATIENT SERVICES DIRECTOR Surgical History Surgery Date(Month/Year) Left ankle surgery x2/ [facility] / with a 3 day stay 1999 Appendectomy/ [facility] / overnigh t stay 2003 Cholecystectomy/ [facility] / overn ight stay 2002 LT Hand Surgery x2/ [facility] / wi th a 3 day stay 1976 Neck (cervical discetomy)Dr. Marc/ [facility] / over night stay 2005 RT Shoulder / [facility] / (OP) 198 2 Tonsillectomy/ [facility] / (OP) 19 66 Tubal abdominal ligation / in [place] / (O P) 1981 Bladder lift / [facility] / Dr. Daniel Crawford / (OP) 2005 Ovari[place] Cyst Rupture/ [facility] in [facility] / with a 3-4 day stay 1987 oophorectomy (left)/ [facility] / ( OP) 2005 [place] teeth/ Dr. Hess / (OP) 1976 Hernia repair / [facility] / (OP) 03/14/2021 Hospitalization History Reason Date(Month/Year) Bowel obstruction / [facility] / treated and rel eased 02/2021
--- OUTSIDE RECORDS SUMMARY | 2025-05-17 11:38 | XMS_ITS | Clinical Summary ---
Author Organization [facility] Address [address] [place] [address] Care Team Providers Care Assistant Dean Of Students Name Role Phone Pcp, No Primary Care [...] Diagnosed Date Unspecified mood (affective) disorder 02/01/2025 Social History Tobacco Use Types Packs/Day Years [...] Wellness (AWV) 1960 [facility]-/Child/Adol SDOH Screenings 1960 [id number] Vaccine (#1) 12/03/1964 [facility]- SDOH Screenings 12/03/1977 [...] Procedure Name Priority Date/Time Associated Diagnosis Comments COLONOSCOPY 12/19/2012 CYTO DATA CONVERSION Routine 04/17/1997 12:00 AM EDT from Last 3 Months or Most Recently Relevant to Health Maintenance Results * COLONOSCOPY (12/19/2012) Anatomical Region Laterality Modality Endoscopy Narrative 12/19/2012 Ordered by an unspecified provider. us Historical Provider GI PROCEDURE ORDERABLES Im l Result * Cytology (04/17/1997 12:00 AM EDT) 04/17/1997 04/18/1997 Narrative SUNQUEST - 04/23/1997 12:00 AM EDT [facility] MR #: [id number] [facility] [place] [place], [place] [address] 1960 (Age: 36) FW Collect Date: 04/17/1997 00:00 Receipt Date: 04/18/1997 00:00 Page 1 DEPARTMENT OF PATHOLOGY AND LABORATORY MEDICINE CYTOPATHOLOGY REPORT Email: [email or web address] [phone] * Converted Case * This report may not match the original report format ATTENDING MD/Practitioner: Mary Galan MD Service: TRACTOR TRAILER MECHANIC Location: Reported: 04/23/1997 00:00 Collected: 04/17/1997 00:00 [...] results is suggested (please call Microbiology at [phone] for results). CLINICAL INFORMATION: Menstrual History: {Not Provided} Date of Last Menstrual Period: {Not Provided} SPECIMEN DESCRIPTION: A: THIN PREP(CERVICAL/ENDOCERVICAL)., THIN PREP PAP ICD: F: {Not Entered} SNOMED CODES: 1; I6M006.3 [id number] [id number] In cases where a pathologist has signed out the report, the service has been rendered in part by a resident. The signing pathologist has performed and is responsible for the reported pathologic evaluation. us Yumiko Galan MD LAB PATHOLOGY ORDERABLES Mi cornejo Result SUNQUEST from Last 3 Months or Most Recently Relevant to Health Maintenance Insurance MEDICAID-[place] AETNA MEDICARE Care Teams Assistant Dean Of Students Relationship Specialty Start Date End Date Pcp, Alicia [address] [place] [address] PCP - General Family Medicine 02/01/25
--- OUTSIDE RECORDS SUMMARY | 2025-05-17 11:38 | XMS_ITS | Patient Health Record ---
Author Organization [facility] Address [address] [place] [address] Care Team Providers Care Pre Parole Counseling Aide Name Role Phone Red Tamayo II Unavailable Jaelyn Guerrero Unavailable Unavailable Freeman Albarran Unavailable [phone] Allergies Allergen (clinical drug ingredient) Drug/Non Drug [...] Oxycodone (OXY) POS Urine Test ANALYZER Reviewed date:01/30/2025 01:35:09 PM [...] Interpretation:+oxy 2/3 Performing Lab: Notes/Report: +oxy 2/3 Reason For Referral Reason Faxed 08/02-Evaluate/ treat if candidate for surgical intervention for lumbar pain. Diagnosis 1 Spondylosis without myelopathy or radiculopathy, lumbar region (M47.816) Referral Organization [facility] Referring Provider First Name Red Referring Provider Last Name Belkis Referring Provider Speciality Pain Manag ement Referred Organization [facility] [place] Referred Address [address] [place] [address],[address] Referred Provider Specialty Neurological Surgery General Notes Juan C (Susannah),Pat ty 08/02/2024 3:14:46 PM > Please contact the patient to schedule and fax confirmation of the scheduled appt to [phone]. If you need any additional information, please contact our office at [phone]. Thank You , Juan C (Susannah),Kenyatta 08/02/2024 3:30:35 PM > Faxed to facility, Margy S[facility] ([facility]) 09/18/2024 12:44:01 PM > Called [facility] and [...] Status Risk Notes Problem Chronic pain syndrome (774598234) Chronic pain syndrome (G89.4) Active confirmed Problem Complex regional pain syndrome type I of right lower limb (disorder) (51892803447680 9) Complex regional pain syndrome I of right lower limb (G90.521) Active confirmed Problem Complex regional pain syndrome of lower limb (disorder) (728034467) Complex regional pain syndrome I of unspecified lower limb (G90.529) Active confirmed Problem Post-laminectom y syndrome (15534215) Postlaminectomy syndrome, not elsewhere classified (M96.1) Active confirmed Problem Long-term current use of drug therapy (843606616) Other 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 (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 (Z79.899) Active confirmed Problem Lumbar spondylosis (551631918) lumbar spondylosis (M47.816) Active confirmed Problem Cervical spondylosis (541852833) cervical spondylosis (M47.812) Active confirmed Vital Signs Heart Rate 90 /min 04/26/2025 Blood pressure diastolic 79 mm Hg 04/26/2025 Height 65 in 04/26/2025 Blood pressure systolic 139 mm Hg 04/26/2025 Weight 145 lbs 04/26/2025 BMI 24.13 kg/m2 04/26/2025 Encounters Encounter Location Date Provider Diagnosis [facility] [address] [place] [address] 05/29/2024 Red Tamayo 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 Z79.899 ; lumbar spondylosis M47.816 ; cervical spondylosis M47.812 ; Postlaminectomy syndrome, not elsewhere classified M96.1 and Complex regional pain syndrome I of right lower limb G90.521 [facility] [address] [place] [address] 07/24/2024 Red Tamayo Other 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 (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 Z79.899 ; lumbar spondylosis M47.816 ; cervical spondylosis M47.812 ; Postlaminectomy syndrome, not elsewhere classified M96.1 and Complex regional pain syndrome I of right lower limb G90.521 [facility] [address] [place] [address] 09/26/2024 Red Tamayo Other 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 (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 Z79.899 ; lumbar spondylosis M47.816 ; cervical spondylosis M47.812 ; Postlaminectomy syndrome, not elsewhere classified M96.1 and Complex regional pain syndrome I of right lower limb G90.521 [facility] [address] [place] [address] 11/20/2024 Red Tamayo Other 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 (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 Z79.899 ; lumbar spondylosis M47.816 ; cervical spondylosis M47.812 ; Postlaminectomy syndrome, not elsewhere classified M96.1 and Complex regional pain syndrome I of right lower limb G90.521 [facility] [address] [place] [address] 01/30/2025 Red Tamayo Other 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 (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 Z79.899 ; lumbar spondylosis M47.816 ; cervical spondylosis M47.812 ; Postlaminectomy syndrome, not elsewhere classified M96.1 and Complex regional pain syndrome I of right lower limb G90.521 [facility] [address] [place] [address] 03/27/2025 Red [facility]ayo 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 Z79.899 ; lumbar spondylosis M47.816 ; cervical spondylosis M47.812 ; Postlaminectomy syndrome, not elsewhere classified M96.1 and Complex regional pain syndrome I of right lower limb G90.521 [facility] [address] [place] [address] 04/26/2025 Red Tamayo Other 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 (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 Z79.899 ; lumbar spondylosis M47.816 ; cervical spondylosis M47.812 ; Postlaminectomy syndrome, not elsewhere classified M96.1 and Complex regional pain syndrome I of right lower limb G90.521 [facility] [address] [place] [address] 05/29/2024 Red Tamayo Other 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 (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 Z79.899 [facility] [address] [place] [address] 05/30/2024 Red Tamayo [facility] [address] [place] [address] 07/24/2024 Red Tamayo 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 Z79.899 [facility] [address] [place] [address] 08/02/2024 Red Tamayo [facility] [address] [place] [address] 09/26/2024 Red Tamayo Other 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 (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 Z79.899 [facility] [address] [place] [address] 11/20/2024 Red Tamayo 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 Z79.899 [facility] [address] [place] [address] 12/01/2024 Red Tamayo [facility] [address] [place] [address] 01/30/2025 Red Tamayo Other 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 (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 Z79.899 [facility] [address] [place] [address] 02/04/2025 Red Tamayo [facility] [address] [place] [address] 03/27/2025 Red Tamayo 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 Z79.899 [facility] [address] [place] [address] 03/28/2025 Red Tamayo [facility] [address] [place] [address] 04/26/2025 Red Tamayo 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 Z79.899 Assessments Encounter Date Diagnosis (ICD Code) Assessment Notes Treatment Notes Treatment Clinical Notes Section Notes 05/29/2024 Other 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 (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 (ICD-10 - Z79.899) 05/29/2024 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 (ICD-10 - Z79.899) May [...] risk assessment is low. f/u 2 months 53FQM74 - Patient with chronic LBP with radicular [...] doing her HEP. Most recent UDS and JHONATHAN reviewed and she reports no side effects [...] risk assessment is low. f/u 2 months 08PLC20 - Patient with chronic LBP with radicular [...] good response prior to implant. 07/24/2024 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 (ICD-10 - Z79.899) July [...] denies any side effect of the medication. Johnathna reviewed. Opioid risk assessment is low. f/u 2 months 71QOP70 - Patient with chronic LBP with radicular [...] validate a good response prior to implant. 26IYX40 - Patient presents today to discuss further [...] denies any side effect of the medication. Johanthan reviewed. Opioid risk assessment is low. f/u 2 months 05FKS01 - Patient with chronic LBP with radicular [...] validate a good response prior to implant. 40SAC51 - Patient presents today to discuss further [...] her back and radicular pain. 07/24/2024 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 (ICD-10 - Z79.899) 09/26/2024 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 (ICD-10 - Z79.899) 09/26/2024 [...] percocet 7.5mg TID. Denies any side effects. Johnahtan and MECHELLES reviewed. Meds refilled and f/u 2 months. 11/20/2024 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 (ICD-10 - Z79.899) 11/20/2024 [...] refilled and f/u 2 months. 09/26/2024 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 (ICD-10 - Z79.899) 11/20/2024 Other 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 (current) drug therapy (ICD-10 - Z79.899) 01/30/2025 Other 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 (current) drug therapy (ICD-10 - Z79.899) 01/30/2025 [...] months, or sooner if needed. 01/30/2025 Other 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 (current) drug therapy (ICD-10 - Z79.899) 03/27/2025 [facility] (ICD-10 - Z79.899) 03/27/2025 [...] Opioid risk assessment is low. 03/27/2025 [facility] (ICD-10 - Z79.899) 04/26/2025 Other 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 (current) drug therapy (ICD-10 - Z79.899) 04/26/2025 [...] Opioid risk assessment is low. 04/26/2025 Other 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 (current) drug therapy (ICD-10 - Z79.899) 04/26/2025 [...] risk assessment is low. f/u 2 months 09DXZ56 - Patient with chronic LBP with radicular [...] validate a good response prior to implant. 56TMC79 - Patient presents today to discuss further [...] risk assessment is low. f/u 2 months 29IMZ07 - Patient with chronic LBP with radicular [...] risk assessment is low. f/u 2 months 89WEA20 - Patient with chronic LBP with radicular [...] risk assessment is low. f/u 2 months 03RTU23 - Patient with chronic LBP with radicular [...] validate a good response prior to implant. 98JMA50 - Patient presents today to discuss further [...] percocet 7.5mg TID. Denies any side effects. Johnahtan and UDS reviewed. Meds refilled and f/u [...] risk assessment is low. f/u 2 months 81GYO45 - Patient with chronic LBP with radicular [...] validate a good response prior to implant. 93FFC59 - Patient presents today to discuss further [...] risk assessment is low. f/u 2 months 05EBO44 - Patient with chronic LBP with radicular [...] risk assessment is low. f/u 2 months 28ONC19 - Patient with chronic LBP with radicular [...] validate a good response prior to implant. 64APO82 - Patient presents today to discuss further [...] risk assessment is low. f/u 2 months 43EGU26 - Patient with chronic LBP with radicular [...] validate a good response prior to implant. 98ZAC80 - Patient presents today to discuss further [...] risk assessment is low. f/u 2 months 07MFI28 - Patient with chronic LBP with radicular [...] validate a good response prior to implant. 48CIN39 - Patient presents today to discuss further [...] Quinn eros, 06/08/2025 02:15:00 PM, [address], [place], [address], Insurance Providers Payer Name Payer Address Payer Phone Subscriber Number Group Number Insured Name Patient Relationship to Insured Coverage Start Date Coverage End Date [employer] Medicare [address] [place] [address] [phone] [id number] Diamond Damon Self - patient is the insured 5 [place] Medicaid [address] [place] [address] [id number] Diamond Damon Self - patient is the [...] Hernia repair / [facility] / (OP) 03/14/2021 [place] teeth/ Dr. Hess / (OP) 1976 oophorectomy (left)/ [facility] / ( OP) 2005 [place] Cyst Rupture/ Kenyatta A Elvis in [facility] / with a 3-4 day stay 1987 Bladder lift / [facility] / Dr. Daniel Crawford / (OP) 2006 Tubal abdominal ligation / in [place] / (O P) 1981 Tonsillectomy/ [facility] / (OP) 19 66 RT Shoulder / [facility] / (OP) 198 2 Neck (cervical discetomy)Dr. Marc/ [facility] / over night stay 2004 LT Hand Surgery x2/ [facility] / wi th a 3 day stay 1976 Cholecystectomy/ [facility] / overn ight stay 2002 Appendectomy/ [facility] / overnigh t stay 2003 Left ankle surgery x2/ [facility] / with a 3 day stay 1999 Hospitalization History Reason Date(Month/Year) Coughing/ [facility]/1 day stay 01/2025 Bowel obstruction / [facility] / treated and rel eased 02/2021
--- NOTE | 2025-05-17 14:00 | MM_ITS ---
PROCEDURE INFORMATION: Exam: Bilateral Screening 3D Mammography Exam date and time: 05/17/2025 11:40 AM Age: 64 years old Clinical indication: Screening examination TECHNIQUE: Imaging protocol: Bilateral Screening tomosynthesis and 2D mammography including computer-aided detection (CAD) when performed. COMPARISON: MAMMO SCREENING DIGITAL TOMOSYNTHESIS BILATERAL W CAD 12/27/2018 10:35 AM FINDINGS: MAMMOGRAPHY: Breast composition: The breasts are almost entirely fatty. Mass: None. Architectural distortion: None. Calcifications: No suspicious calcifications. Asymmetric density: None. Skin thickening: None. Axillary adenopathy: None. IMPRESSION: No mammographic evidence of malignancy. Annual screening is recommended unless otherwise clinically indicated. ASSESSMENT: BI-RADS Category 1: Negative.
== END 2025-05-17 23:59 | disposition home or self-care (01) ==
LOC: RAD 11:34
PROVIDERS: PCP Nurse Practitioner Family; Visit Provider Obstetrics & Gynecology
DX: Z12.31 Encounter for screening mammogram for malignant neoplasm of breast (principal)
CPT/HCPCS: 77063; 77067

== ENCOUNTER 2025-05-28 10:00 | Outpatient (RCR) | payer MEDICARE, MEDICAID, SELFPAY ==
--- NOTE | 2025-05-21 14:44 | HMH.OTOPEV ---
OT Evaluation Rehab OT Outpatient Eval Start: 05/21/25 14:22 Freq: Status: Active Protocol: Document 05/21/25 14:22 SAM (Rec: 05/21/25 14:43 SAM [id number]) E-signed By Tete Maurer, OT Outpatient Therapy Subjective History Subjective History Pt is a 64 yr old female who presents to initial OT evaluation due to pain in L shoulder. Pt reports they realized they could not move their L shoulder well aprox 3 weeks ago. Pt reports they fall frequently due to drop foot. Pt reports they have a hx of seizures and had a major one in 1993 and a mini one in 1997 that they did not seek medical intervention for mini. Pt reported they have hx of arthritis in hands. Pt reports they had an X-ray that had no significant findings and have not had an MRI. Pt reports they had surgery on R shoulder with a labrum tear and wonder if this could be similar. Pt presents with palpation tenderness at AC joint on L shoulder and anterior RTC. Pt presents with pain from PROM and reports pain from Anterior RTC/AC joint all way down to elbow. New diagnosis of No cancer in past 12 months? Chief Complaint Pain,Stiff,Gives out/Unstable,Weakness,Decreased Coordination Symptom Type Ache,Throb,Sharp,Shooting Symptoms Relieved By Rest/Positioning,Ice,Prescription Meds Symptoms Aggravated Physical Activity,Lifting By Prior Functional None Limitations Current Functional Reaching,Lifting,Housework,Dressing,Driving,Sleeping, Limitations Recreation Activity Symptom Description Constant but Variable,Pain at Rest Level of pain today 6 (0-10) Pain scale - at its 6 best (0-10) Pain scale - at its 9 worst (0-10) Shoulder/Elbow Eval Shoulder Objective Measurements Palpation Tenderness tenderness shoulder left exam standard Shoulder Palpation Tenderness,Muscle Guarding Findings Shoulder Palpation tenderness at AC joint and anterior RTC Overall Comment Posture Shoulder Posture (L) Rounded Sitting Position Shoulder ROM Left Shoulder ROM Muscle Weakness,Muscle Tone,Pain Limitations Shoulder Abduction 70 Active Range of Motion (degrees) Shoulder Flexion 55 Active Range of Motion (degrees) Query Text: Shoulder External 30 Rotation Active Range of Motion ( degrees) Shoulder Internal 10 Rotation Active Range of Motion ( degrees) pain with active ROM left shoulder exam standard pain with passive left ROM shoulder exam standard full ROM shoulder left exam standard Shoulder MMT Shoulder Abduction 3- Fair- Strength Grade Shoulder Flexion 3- Fair- Strength Grade Shoulder External 3- Fair- Rotation Strength Grade Shoulder Internal 3- Fair- Rotation Strength Grade Shoulder Strength Sitting Patient Testing Position Elbow Objective Measurements QuickDASH Activities Please rate your ability to do the following activities in the last week by selecting the number below the appropriate response. 1. Open a tight or Severe difficulty new jar. 2. Do heavy Unable java flex developer (e. g., wash crow, floors). 3. Carry a shopping Severe difficulty bag or briefcase. 4. Wash your back. Unable 5. Use a knife to Severe difficulty cut food. 6. Recreational Severe difficulty activities in which you take some force or impact through your arm, shoulder, or hand (e.g., golf, hammering, tennis, etc.). 7. During the past Extremely week, to what extent has your arm, shoulder or hand problem interfered with your normal social activities with family, friends , neighbors or groups? 8. During the past Unable week, were you limited in your work or other regular daily activites as a result of your arm, shoulder or hand problem? 9. Arm, shoulder or Extreme hand pain. 10. Tingling (pins Mild and needles) in your arm, shoulder or hand. 11. During the past So much difficulty that I can't sleep week, how much difficulty have you had sleeping because of the pain in your arm, shoulder or hand? Quick DASH 48 OT Patient Goals OT Patient Goals OT Short Term 1. Pt will increase left shoulder flexion to 70 degrees Patient Goals in order to complete daily overhead tasks independently ~50% of the time. 2. Pt will increase L shoulder abduction to 85 degrees to complete upper body dressing independently ~50% of the time. 3. Pt will increase L shoulder ER/IR to 40 degrees (ER) and 30 degrees (IR) in order to complete lower body dressing (putting on and taking off belt) independently ~50% of the time. 4. Pt will increase strength to 3+/5 throughout left shoulder in order to complete heavier household tasks ( laundry, mopping, vacuuming) independently ~50% of the time. 5. Pt will verbalize decreased pain levels at worst in L shoulder to a 7/10 in order to complete daily ADLs independently ~50% of the time. 6. Pt will demonstrate improved endurance by completing left shoulder exercises for ~20 minutes prior to rest break in order to increase her tolerance for daily work activities. 7. Pt will demonstrate independence with HEP of AAROM exercises to increase overall functional use of left shoulder in daily activities ~75% of the time. 8. Pt will improve Quickdash score of Activities to 40 or below to demo improve optimal occupational performance in ADLs and IADLs completion. OT Ammonia Distiller Patient 1. Pt will increase left shoulder flexion to 80 degrees Goals in order to complete daily overhead tasks independently ~50% of the time. 2. Pt will increase L shoulder abduction to 95 degrees to complete upper body dressing independently ~50% of the time. 3. Pt will increase L shoulder ER/IR to 45 degrees (ER) and 35 degrees (IR) in order to complete lower body dressing (putting on and taking off belt) independently ~50% of the time. 4. Pt will increase strength to 4-/5 throughout left shoulder in order to complete heavier household tasks ( laundry, mopping, vacuuming) independently ~50% of the time. 5. Pt will verbalize decreased pain levels at worst in L shoulder to a 5/10 in order to complete daily ADLs independently ~50% of the time. 6. Pt will demonstrate improved endurance by completing left shoulder exercises for ~25 minutes prior to rest break in order to increase her tolerance for daily work activities. 7. Pt will demonstrate independence with HEP of advanced strengthening exercises to increase overall functional use of left shoulder in daily activities ~75 % of the time. 8. Pt will improve Quickdash score of Activities to 38 or below to demo improve optimal occupational performance in ADLs and IADLs completion. OT Outpatient Assessment Impairments Problems/Impairments Palpation Tenderness,Impaired Range of Motion,Impaired Strength,Impaired Endurance,Impaired Lifting,Impaired Dressing,Impaired Shower/Bathing,Impaired Household Care,Impaired Recreational Activities,Subjective C/O Pain,Impaired Self Care/Self Management Prognosis Rehab Potential Good Clinical Impression Consistent with Yes Diagnosis Outpatient Therapy Plan of Care Treatment Plan May Include Therapeutic Exercise Yes Including Home Exercise Program Manual Therapy Yes Techniques Neuromuscular Re- Yes education Therapeutic Yes Activities to Return to Previous Functional/Work Level ADL/Self Care Yes Education Thermal Modalities Yes Electrical Yes Stimulation Ultrasound/ Yes Phonophoresis Iontophoresis Yes Parrafin Yes Orthotics/Bracing/ Yes Splinting Group Therapy for Yes Medicare Eval/Re-Eval Yes Frequency Times per week 2 Duration Number of Weeks 8 Addendums This patient is a No candidate for social or vocational rehab ? Patient/Guardian Yes verbally acknowledges understanding of treatment program and consents to further treatment? Patient/Guardian Yes verbally acknowledges understanding of diagnosis, prognosis and goals for treatment? Eval Complexity OT Charge 38360 - Moderate Complexity PHYSICIAN CERTIFICATION: I certify the specified therapy services for Diamond Damon are required, authorized, and reviewed every 30 days.
== END 2025-05-28 23:59 | disposition home or self-care (01) ==
LOC: OT 10:00
PROVIDERS: Visit Provider Physician Assistant
DX: M25.512 Pain in left shoulder (principal)
CPT/HCPCS: 97014; 97110; 97140; 97166; G0283

== ENCOUNTER → 2025-06-16 20:09 | Outpatient (CLI) | payer MEDICARE, MEDICAID, SELFPAY ==
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
--- OUTSIDE RECORDS SUMMARY | 2024-09-26 05:15 | XMS_ITS ---
Author Organization [facility] Address [address] [place] [address] Care Team Providers Care Human Resources Coordinator Name Role Phone ClauszainRed rush II Unavailable [phone] Jaelyn Guerrero Unavailable Unavailable Freeman Albarran Unavailable [phone] Allergies Allergen (clinical drug ingredient) Drug/Non Drug [...] Diagnosis [facility] [address] [place] [address] 09/26/2024 Freeman Albarran Other intermediate (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 Z79.899 ; lumbar spondylosis M47.816 ; cervical spondylosis M47.812 ; Postlaminectomy syndrome, not elsewhere classified M96.1 and Complex regional pain syndrome I of right lower limb G90.521 Assessments Encounter Date Diagnosis (ICD Code) Assessment Notes Treatment Notes Treatment Clinical Notes Section Notes 09/26/2024 Other intermediate (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 (ICD-10 - Z79.899) July [...] risk assessment is low. f/u 2 months [id number] - Patient with chronic LBP with radicular [...] validate a good response prior to implant. 68SAY62 - Patient presents today to discuss further [...] risk assessment is low. f/u 2 months 39RNA05 - Patient with chronic LBP with radicular [...] validate a good response prior to implant. 95YVY48 - Patient presents today to discuss further [...] risk assessment is low. f/u 2 months 81DBW70 - Patient with chronic LBP with radicular [...] validate a good response prior to implant. 30HLR56 - Patient presents today to discuss further [...] risk assessment is low. f/u 2 months 68ZTH52 - Patient with chronic LBP with radicular [...] validate a good response prior to implant. 07JJP16 - Patient presents today to discuss further [...] risk assessment is low. f/u 2 months 34TBA51 - Patient with chronic LBP with radicular [...] validate a good response prior to implant. 83SQW44 - Patient presents today to discuss further [...] 28 day(s) Treatment Notes Assessment Notes Other intermediate (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 July 24, 2024 1. Refill Percocet 7.5/325mg TID 2. Refer patient to NS. 3. Follow up in 2 months Pending Test Test Name Order Date Urine Test ANALYZER 09/26/2024 Next Appt Details Follow Up: 2 Months, Reason: Provider Name:Red cooney, 07/04/2025 04:00:00 PM, [address], [address], [place], [address], Progress Notes * Diamond LOUIEDOB: [birth year] (64 yo F)Acc No.[id number]:09/26/2024 FollowUP Patient: Diamond JUAREZ Provider: Humera Albarran MD :1960 A ge:63 Y S ex:Female Date:09/26/2024 Address:[address] [place] [address] LE[place] Gómez [phone] Subjective: * Chief Complaints: * 1 . [...] of a left asymmetric disc bulge producing sdvzqfpq-xs-eehuyl left neuroforaminal stenosis and subarticular recess narrowing. [...] with no relief A shira Therapy- At [facility] 1994 which helped after her stroke [...] a nxiety diagnosed managed by Jaelyn Renteria PROCUREMENT DIRECTOR , asthma diagnosed 1979 managed by [facility] PROCUREMENT DIRECTOR , bipolar disorder diagnosed 1993 managed by [facility] PROCUREMENT DIRECTOR , COPD diagnosed 1979 managed by [facility] PROCUREMENT DIRECTOR , fibromyalgia diagnosed 1989 managed by [facility] PROCUREMENT DIRECTOR , depression diagnosed managed by [facility] PROCUREMENT DIRECTOR , seizures diagnosed 2016 managed by [facility] PROCUREMENT DIRECTOR , Stroke diagnosed 1993 managed by [facility] PROCUREMENT DIRECTOR , Hypothyroidism diagnosed 1979 managed by [facility] PROCUREMENT DIRECTOR , scoliosis diagnosed 1979 managed by [facility] PROCUREMENT DIRECTOR , Degenerative disc disease diagnosed 1999 managed by [facility] PROCUREMENT DIRECTOR . * Surgical History: L eft ankle surgery x2/ [facility] / with a 3 day stay 1999, Appendectomy/ [facility] / overnight stay 2003, Cholecystectomy/ [facility] / overnight stay 2002, LT Hand Surgery x2/ [facility] / with a 3 day stay 1976, Neck (cervical discetomy)Dr. Marc/ [facility] / over night stay 2004, RT Shoulder / [facility] / (OP) 1981, Tonsillectomy/ [facility] / (OP) 1965, Tubal abdominal ligation / in [place] / (OP) 1981, Bladder lift / [facility] / Dr. Alicia Crawford / (OP) 2005, Ovarien Cyst Rupture/ [facility] in [facility] / with a 3-4 day stay 1987, oophorectomy (left)/ [facility] / (OP) 2005, [place] teeth/ Dr. Hess / (OP) 1976, Hernia repair / [facility] / (OP) 03/14/2021. * Hospitalization/Major Diagno stic [...] * Vitals: * Examination: G eneral Examination: Nurse/Colored Liquid Plastic Applier: Obey Blackman (MA LEX) 07/24/2024 2:25:50 PM [...] . Assessment: * Assessment: 1. O ther intermediate (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 - Z79.899 (Primary) 2 [...] risk assessment is low. f/u 2 months [id number] - Patient with chronic LBP with radicular [...] validate a good response prior to implant. [id number] - Patient presents today to discuss further [...] Electronic signature of Kj Albarran M.D. on 06/16/2025 at 07:14 PM CDT Sign off status: Pending * Provider: Humera Albarran MD Date: 0 09/26/2024 Generated for Bacilio anna/Sajan/Juan on: 07:14 PM [...] of a left asymmetric disc bulge producing vymioxcv-lb-enqqpf left neuroforaminal stenosis and subarticular recess narrowing. Far left lateral component encroaches upon and may abut or contact the exiting left L5 nerve root PHYSICAL/AQUA THERAPY/DME/OT HER HISTORY: Physical Therapy- 2018 with no relief Aqua Therapy- At [facility] 1994 which helped after her stroke [...] leads removed, tip intact. Sterile dressing applied Nurse/Colored Liquid Plastic Applier: Xiomara Douglas ([place] L[facility]) 07/24/2024 2:25:50 PM [...]
--- OUTSIDE RECORDS SUMMARY | 2025-01-15 09:45 | XMS_ITS ---
Author Organization [facility] ex Address [address] [place] [address] Care Team Providers Care Grinder Set Up Operator Gear Tool Name Role Phone Red Tamayo II Unavailable [...] Diagnosis [facility] [address] [place] [address] 01/15/2025 Red Tamayo Other group home (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 Z79.899 ; lumbar spondylosis M47.816 ; cervical spondylosis M47.812 ; Postlaminectomy syndrome, not elsewhere classified M96.1 and Complex regional pain syndrome I of right lower limb G90.521 Assessments Encounter Date Diagnosis (ICD Code) Assessment Notes Treatment Notes Treatment Clinical Notes Section Notes 01/15/2025 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 Refer patient to NS.- waiting to reschedule appt. 3. Follow up in 2 months 4. refill tizanidine 4mg TID Pending Test Test Name Order Date Urine Test ANALYZER 01/15/2025 Next Appt Details Follow Up: 2 Months, Reason: Provider Name:Red cooney, 07/04/2025 04:00:00 PM, [address], [address], [place], [address], Procedure Notes * Category Sub-Category Detail Notes PROVIDER ENCOUNTER AND OVERSIGHT Consult Performed By: Cristina-Lotus MIRAMONTES 11/20/2024 2:58:33 PM > collaborated treatment plan with Red vallejo M.D., supervising physician who was present in office during consultation Progress Notes * Diamond LOUIEDOB: [birth year] (64 yo F)Acc No.[id number]:01/15/2025 FollowUP Patient: Chinedu LEMUS Diamond Provider: Tianna Tamayo II, M.D. :1960 A ge:64 Y S ex:Female Date:01/15/2025 Address:[address] [place], [place] [phone] Subjective: * Chief Complaints: * 1 . [...] of a left asymmetric disc bulge producing zyrlxbfv-fg-gqdrgi left neuroforaminal stenosis and subarticular recess narrowing. [...] with no relief A shira Therapy- At [facility] 1994 which helped after her stroke [...] History: L eft ankle surgery x2/ [facility] / with a 3 day stay 1999, Appendectomy/ [facility] / overnight stay 2003, Cholecystectomy/ [facility] / overnight stay 2002, LT Hand Surgery x2/ [facility] / with a 3 day stay 1976, Neck (cervical discetomy)Dr. Marc/ [facility] / over night stay 2004, RT Shoulder / [facility] / (OP) 1981, Tonsillectomy/ [facility] / (OP) 1965, Tubal abdominal ligation / in [place] / (OP) 1981, Bladder lift / [facility] / Dr. Alicia Crawford / (OP) 2005, Ovarien Cyst Rupture/ [facility] in [facility] / with a 3-4 day stay 1987, oophorectomy (left)/ [facility] / (OP) 2005, [place] teeth/ Dr. Hess / (OP) 1976, Hernia repair / [facility] / (OP) 03/14/2021. * Hospitalization/Major Diagno [...] * Vitals: * Examination: G eneral Examination: Nurse/Tractor Sweeper Driver: Bethany gonzalez(MA-Ray)[place] 11/20/2024 2:29:18 PM > . [...] . Assessment: * Assessment: 1. O ther group home (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 - Z79.899 (Primary) 2 [...] ENCOUNTER AND OVERSIGHT: Consult Performed By: Austin forbes(CARPET WEAVER-RAY),Lotus 11/20/2024 2:58:33 PM > . c ollaborated treatment plan with Tianna Tamayo M.D., supervising physician who was present in office during consultation. * Follow Up: 2 Months * * Electronic signature of Nigel Tamayo II, M.D. on 06/16/2025 at 07:14 PM CDT Sign off status: Pending * Provider: Tianna Tamayo II, M.D. Date: 0 01/15/2025 Generated for Bacilio anna/Sajan/eTransmitting on: 1 07:14 PM CDT History and Physical Notes [...] of a left asymmetric disc bulge producing rbqvajfv-rc-vlfijl left neuroforaminal stenosis and subarticular recess narrowing. Far left lateral component encroaches upon and may abut or contact the exiting left L5 nerve root PHYSICAL/AQUA THERAPY/DME/OT HER HISTORY: Physical Therapy- 2018 with no relief Aqua Therapy- At [facility] 1994 which helped after her stroke [...] leads removed, tip intact. Sterile dressing applied Nurse/Tractor Sweeper Driver: [place] Graham (MA-Lex) 11/20/2024 2:29:18 PM > [...]
--- OUTSIDE RECORDS SUMMARY | 2025-04-23 10:45 | XMS_ITS ---
Author Organization [facility] Address [address] [place] [address] Care Team Providers Care Bailiff Name Role Phone ClauszainRed rush II Unavailable Jaleyn Guerrero Unavailable Unavailable Freeman Albarran Unavailable [phone] Allergies Allergen (clinical drug ingredient) Drug/Non Drug [...] Diagnosis [facility] [address] [place] [address] 04/23/2025 Freeman Albarran Other [facility] (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 Z79.899 ; lumbar spondylosis M47.816 ; cervical spondylosis M47.812 ; Postlaminectomy syndrome, not elsewhere classified M96.1 and Complex regional pain syndrome I of right lower limb G90.521 Assessments Encounter Date Diagnosis (ICD Code) Assessment Notes Treatment Notes Treatment Clinical Notes Section Notes 04/23/2025 Other keno terminal operator (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 (ICD-10 - Z79.899) 04/23/2025 [...] 30 days Treatment Notes Assessment Notes Other keno terminal operator (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 04/23/2025 1. Refill Percocet 7.5/325mg TID 2. Refill Tizanidine 4mg TID 3. Refill Lidocaine patch daily as directed 4. Follow up in 1 month for MD Pending Test Test Name Order Date Urine Test ANALYZER 04/23/2025 Next Appt Details Follow Up: 2 Months, Reason: Provider Name:Red cooney, 07/04/2025 04:00:00 PM, [address] [facility], [address], [address], Progress Notes * Diamond LOUIEDOB: [birth year] (64 yo F)Acc No.[id number]:04/23/2025 Patient: Chinedu Diamond LEMUS Provider: Humera Ablarran MD :1960 A ge:64 Y S ex:Female Date:04/23/2025 Address:[address] [place] [address] [place], [id number] Subjective: * Chief Complaints: * 1 . [...] of a left asymmetric disc bulge producing pvftdprj-nq-vsikfh left neuroforaminal stenosis and subarticular recess narrowing. [...] with no relief A shira Therapy- At [facility] 1994 which helped after her stroke [...] History: L eft ankle surgery x2/ [facility] / with a 3 day stay 1999, Appendectomy/ [facility] / overnight stay 2003, Cholecystectomy/ [facility] / overnight stay 2002, LT Hand Surgery x2/ [facility] / with a 3 day stay 1976, Neck (cervical discetomy)Dr. Marc/ [facility] / over night stay 2004, RT Shoulder / [facility] / (OP) 1981, Tonsillectomy/ [facility] / (OP) 1965, Tubal abdominal ligation / in [place] / (OP) 1981, Bladder lift / [facility] / Dr. Alicia Crawford / (OP) 2005, Ovarien Cyst Rupture/ [facility] in [facility] / with a 3-4 day stay 1987, oophorectomy (left)/ [facility] / (OP) 2005, [place] teeth/ Dr. Hess / (OP) 1976, Hernia repair / [facility] / (OP) 03/14/2021. * Hospitalization/Major Diagno [...] Vitals: * Examination: G eneral Examination: Nurse/Supervisor Solder Making: Juan Jean-BaptisteMA-Ray)Rianna 03/27/2025 02:44:00 PM EDT >. [...] . Assessment: * Assessment: 1. O ther [facility] (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 - Z79.899 (Primary) 2 [...] 04/23/2025 Generated for Bacilio anna/Sajan/Juan on: 1 07:14 PM CDT History and [...] of a left asymmetric disc bulge producing szvgdqoh-ti-qkfpjo left neuroforaminal stenosis and subarticular recess narrowing. Far left lateral component encroaches upon and may abut or contact the exiting left L5 nerve root PHYSICAL/AQUA THERAPY/DME/OT HER HISTORY: Physical Therapy- 2018 with no relief Aqua Therapy- At [facility] 1994 which helped after her stroke [...] removed, tip intact. Sterile dressing applied Nurse/Supervisor Solder Making: Jay Martin (MA-Lex) 03/27/2025 02:44:00 PM EDT [...]
--- OUTSIDE RECORDS SUMMARY | 2025-04-26 10:30 | XMS_ITS ---
Author Organization [facility] Address [address] [place] [address] Care Team Providers Care Cableway Operator Name Role Phone Red Tamayo II [...] [facility] [address] [place] [address] 04/26/2025 Red Tamayo Other skilled nursing (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 Z79.899 ; lumbar spondylosis M47.816 ; cervical spondylosis M47.812 ; Postlaminectomy syndrome, not elsewhere classified M96.1 and Complex regional pain syndrome I of right lower limb G90.521 Assessments Encounter Date Diagnosis (ICD Code) Assessment Notes Treatment Notes Treatment Clinical Notes Section Notes 04/26/2025 Other termite exterminator (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 (ICD-10 - Z79.899) 04/26/2025 [...] 30 days Treatment Notes Assessment Notes Other skilled nursing (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 04/26/2025 1. Refill percocet 7.5/325mg TID 2. Refill tizanidine 4mg TID 3. Refill Lidocaine patch daily as directed 4. Order TENS unit 5. Follow up in 2 months Next Appt Details Follow Up: 2 Months, Reason: Provider Name:Red cooney, 07/04/2025 04:00:00 PM, [address], [address], [address], Procedure Notes * Category Sub-Category Detail Notes PROVIDER ENCOUNTER AND OVERSIGHT Consult Performed By: Nikole Jean-Baptiste NP-Magali MIRAMONTES 03/27 03:25:49 PM EDT > collaborated treatment plan with Red vallejo M.D., supervising physician who was present in office during consultation Progress Notes * Diamond LOUIEDOB: [birth year] (64 yo F)Acc No.[id number]:04/26/2025 FollowUP Patient: Arturo JUAREZca Provider: Tianna Tamayo II, M.D. :1960 A ge:64 Y S ex:Female Date:04/26/2025 Address:[address] [place] [address] [place] Subjective: * Chief Complaints: [...] of a left asymmetric disc bulge producing gavwunfu-kv-adgdkf left neuroforaminal stenosis and subarticular recess narrowing. [...] History: L eft ankle surgery x2/ [facility] / with a 3 day stay 1999Appendectomy/ [facility] / overnight stay 2004Cholecystectomy/ [facility] / overnight stay 2003[facility] with a [facility] 1976Tre (cervical discetomy[facility]. Marc[facility] over night stay 2005RT Shoulder / [facility] / (OP) 1982[facility]/ [facility] ([facility]) 1966Tubal abdominal ligation / in [place] / (OP) 1981Bladder lift [facility] Dr. Alicia Crawford / (OP) 2005Ovarien Cyst Rupture/ [facility] in [facility] / with a 3-4 day stay 1987oophorectomy (left)/ [facility] / (OP) 2005Wisdom teeth/ Dr. Hess / (OP) 1976Hernia repair / [facility] / (OP) 03/14/2021 * Hospitalization/Major Diagno stic Procedure: B owel obstruction / / treated and released oughing/ [facility]/1 day stay 01/2025 * Family [...] 145, BMI:24.13Index. * Examination: G eneral Examination: Nurse/Facility Administrator: Obey Blackman (MA LEX) 04/26/2025 02:31:49 PM [...] . Assessment: * Assessment: 1. O ther skilled nursing (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 - Z79.899 (Primary) 2 . l umbar spondylosis - M47.816 3 . c ervical spondylosis - M47.812 4 .?Postlaminectomy syndrome, not elsewhere classified - M96.1 5 . C omplex regional pain syndrome I of right lower limb - G90.521 03/27/2025 Ms. Louie is a 64 y ear-old with complaints chronic low back pain who presents t laina for a follow up o ffice visit [...] Provider: Tianna Tamayo II, M.D. Date: 0 04/26/2025 Generated for Bacilio anna/Sajan/Juan on: 1 07:13 PM CDT History and Physical Notes * [...] of a left asymmetric disc bulge producing lyblhqca-mx-rlpmiw left neuroforaminal stenosis and subarticular recess narrowing. [...] leads removed, tip intact. Sterile dressing applied Nurse/Facility Administrator: Tyler Douglas (MA LEX) 04/26/2025 02:31:49 PM [...]
--- OUTSIDE RECORDS SUMMARY | 2025-06-08 10:15 | XMS_ITS ---
Author Organization [facility] Address [address] [place] [address] Care Team Providers Care Fast Food Delivery Driver Name Role Phone Red Tamayo II Unavailable [...] Diagnosis [facility] [address] [place] [address] 06/08/2025 Red Tamayo Other residential (current) drug therapy Z79.899 ; lumbar spondylosis M47.816 ; cervical spondylosis M47.812 ; Postlaminectomy syndrome, not elsewhere classified M96.1 and Complex regional pain syndrome I of right lower limb G90.521 Assessments Encounter Date Diagnosis (ICD Code) Assessment Notes Treatment Notes Treatment Clinical Notes Section Notes 06/08/2025 Other residential (current) drug therapy (ICD-10 - Z79.899) June [...] were reviewed. Opioid risk assessment is low. 15ZDE23 - Patient with increased spasms to her [...] were reviewed. Opioid risk assessment is low. 35EID43 - Patient with increased spasms to her [...] were reviewed. Opioid risk assessment is low. 46HDQ30 - Patient with increased spasms to her [...] were reviewed. Opioid risk assessment is low. 54ADO99 - Patient with increased spasms to her [...] were reviewed. Opioid risk assessment is low. 18FJF43 - Patient with increased spasms to her [...] IF CLOSED) Treatment Notes Assessment Notes Other residential (current) drug therapy June 08, 2025 1. Refill percocet 7.5/325mg TID 2. Refill tizanidine 4mg TID - stop 3. Refill Lidocaine patch daily as directed 4. Order TENS unit 5. Follow up in 2 months 6. Start Robaxn 500mg TID Next Appt Details Follow Up: 2 Months, Reason: Provider Name:Red cooney, 07/04/2025 04:00:00 PM, [address], [facility] [address], [place], [address], Procedure Notes * Category Sub-Category Detail Notes PROVIDER ENCOUNTER AND OVERSIGHT Consult Performed By: Nikole ( MEAL GRINDER TENDER-RAY)Magali 03/27 03:25:49 PM EDT > collaborated treatment plan with Red vallejo M.D., supervising physician who was present in office during consultation Progress Notes * Diamond LOUIEDOB: [birth year] (64 yo F)Acc No.[id number]:06/08/2025 FollowUP Patient: Diamond JUAREZ Provider: Tianna Tamayo II, M.D. :1960 A ge:64 Y S ex:Female Date:06/08/2025 Address:[address] [place], [place] [id number] Subjective: * Chief Complaints: * 1 . [...] of a left asymmetric disc bulge producing cbutuiia-lk-eexuji left neuroforaminal stenosis and subarticular recess narrowing. [...] with no relief A shira Therapy- At [facility] 1994 which helped after her stroke [...] a nxiety diagnosed managed by Jaelyntomas Renteria VOCATIONAL DIRECTOR , [facility] , bipolar disorder diagnosed 1993 [facility] , COPD [facility] , fibromyalgia diagnosed 1989 managed by Jaelyn Godkelley VOCATIONAL DIRECTOR , depression diagnosed managed by Jaelyn Godby VOCATIONAL DIRECTOR , seizures diagnosed 2016 managed by Jaelyn Myra VOCATIONAL DIRECTOR , Stroke diagnosed 1993 managed by Jaelyn Godby VOCATIONAL DIRECTOR , Hypothyroidism diagnosed 1979 [facility] , scoliosis diagnosed 1979 managed by Jaelyn Godkelley VOCATIONAL DIRECTOR , Degenerative disc disease diagnosed 1999 managed by Jaelyn Myra VOCATIONAL DIRECTOR. * Surgical History: L eft ankle surgery x2/ [facility] / with a 3 day stay 1999, Appendectomy/ [facility] / overnight stay 2003, Cholecystectomy/ [facility] / overnight stay 2002, LT Hand Surgery x2/ [facility] / with a 3 day stay 1976, Neck (cervical discetomy)Dr. Marc/ [facility] / over night stay 2004, RT Shoulder / [facility] / (OP) 1981, Tonsillectomy/ [facility] / (OP) 1965, Tubal abdominal ligation / in [place] / (OP) 1981, Bladder lift / [facility] / Dr. Alicia Crawford / (OP) 2005, Ovarien Cyst Rupture/ Kenyatta A Elvis in [facility] / with a 3-4 day stay 1987, oophorectomy (left)/ [facility] / (OP) 2005, [place] teeth/ Dr. Hess / (OP) 1976, Hernia repair / [facility] / (OP) 03/14/2021. * Hospitalization/Major Diagno [...] 145, BMI:24.13Index. * Examination: G eneral Examination: Nurse/Circus Hand: Obey Blackman (MA LEX) 06/08/2025 02:50:33 PM [...] . Assessment: * Assessment: 1. O ther residential (current) drug therapy - Z79.899 (Primary) 2 [...] were reviewed. Opioid risk assessment is low. 94CJE76 - Patient with increased spasms to her [...] OVERSIGHT: Consult Performed By: Austin briseno ( MEAL GRINDER TENDER-RAY)Magali 03/27/2025 03:25:49 PM EDT >. c ollaborated treatment plan with Tianna Tamayo M.D., supervising physician who was present in office during consultation. * Follow Up: 2 Months * * Sign off status: Completed true * Provider: Tianna Tamayo II, M.D. Date: Generated for Bacilio anna/Sajan/eTransmitting on: 07:14 PM CDT History and Physical [...] of a left asymmetric disc bulge producing crvggxwx-dm-qzqxvm left neuroforaminal stenosis and subarticular recess narrowing. Far left lateral component encroaches upon and may abut or contact the exiting left L5 nerve root PHYSICAL/AQUA THERAPY/DME/OT HER HISTORY: Physical Therapy- 2019 with no relief Aq ua Therapy- At [facility] 1994 which helped after her stroke [...] leads removed, tip intact. Sterile dressing applied Nurse/Circus Hand: Tyler Douglas (MA LEX) 06/08/2025 02:50:33 PM [...]
--- OUTSIDE RECORDS SUMMARY | 2025-06-16 20:14 | XMS_ITS | Patient Health Record ---
Author Organization [facility] Address [address] [place] [address] Care Team Providers Care Order Expediter Name Role Phone Red Tamayo II Unavailable Jaelyn Guerrero Unavailable Unavailable Freeman Albarran Unavailable [phone] Allergies Allergen (clinical drug ingredient) Drug/Non Drug [...] Oxycodone (OXY) POS Urine Test ANALYZER Reviewed date:06/08/2025 03:17:18 PM Interpretation:NEG ALL Performing Lab: Notes/Report: NEG ALL Amphetamine (AMP) NEG Benzodiazepine (EMANUEL) NEG Methadone (MTD) NEG Opiate (OPI) NEG Urine Test ANALYZER Reviewed date:11/20/2024 03:15:16 PM Interpretation:+OXY Performing Lab: Notes/Report: +OXY Heroin Metabolite (6AM) NEG Amphetamine (AMP) NEG Benzodiazepine (EMANUEL) NEG Buprenorphine NEG Cocaine (KYLE) NEG Hydrocodone (HYD) NEG Methadone (MTD) NEG Opiate (OPI) NEG Oxycodone (OXY) POS Urine Test ANALYZER Reviewed date:03/27/2025 03:17:43 PM [...] Notes/Report: +oxy 2/3 Urine Test ANALYZER Reviewed date:09/27/2024 08:57:58 AM Interpretation:+OXY+OPI Performing Lab: Notes/Report: +OXY+OPI Heroin Metabolite (6AM) NEG Amphetamine (AMP) NEG Benzodiazepine (EMANUEL) NEG Buprenorphine NEG Cocaine (KYLE) NEG Hydrocodone (HYD) NEG Methadone (MTD) NEG Opiate (OPI) POS Oxycodone (OXY) POS Reason For Referral Reason Faxed 08/02-Evaluate/ treat if candidate for surgical intervention for lumbar pain. Diagnosis 1 Spondylosis without myelopathy or radiculopathy, lumbar region (M47.816) Referral Organization [facility] Referring Provider First Name Red Referring Provider Last Name Belkis Referring Provider Speciality Pain Manag ement Referred Organization [facility] Referred Address [address] [place] [address], [place],[address],[place] Referred Provider Specialty Neurological Surgery General Notes Juan C (Susannah),Elaine ty 08/02/2024 3:14:46 PM > Please contact the patient to schedule and fax confirmation of the scheduled appt to [phone]. If you need any additional information, please contact our office at [phone]. Thank You , Juan C Palmer),Kenyatta 08/02/2024 3:30:35 PM > Faxed to facility, Margy Soria ([facility]) 09/18/2024 12:44:01 PM > Called [facility] and was advised this pt was scheduled for this on 10/10/24 but cx'd the appt due to transportation issues. Pt also no showed her last follow up with us and has not rescheduled. Closing referral but per [facility], she can reschedule whenever ready. Referral Priority [...] (OK TO FILL EARLY, ONLY IF CLOSED) 06/11/2025 Active fenofibrate 145 mg 1 tab(s) orally once a day; Duration: 30 day(s) 10/29/2022 Active meclizine 25 mg 1 tab Oral tid prn; Duration: 15 days 10/29/2022 Active benzonatate 100 mg 1 cap(s) orally 3 times a day; Duration: 5 day(s) 10/20/2022 Active levothyroxine 75 mcg (0.075 mg) 1 tab(s) orally once a day Active methocarbamol 500 mg 1 tab orally 3 time s a day; Duration: 30 days 06/08/2025 Active buPROPion 150 mg/12 hours 1 tab(s) orally 2 times a day; Duration: 30 day(s) 10/29/2022 Active acyclovir 400 mg 1 tab(s) orally 2 times a day 10/29/2022 Active acetaminophen-oxycodo ne 325 mg-7.5 mg 1 tab(s) orally 3 times a day; Duration: 28 days June 2025 RXDO NOT FILL SOONER THAN 28 DAYS, (OK TO FILL EARLY, ONLY IF CLOSED) 06/11/2025 Active venlafaxine 150 mg 1 cap(s) orally [...] Status Risk Notes Problem Chronic pain syndrome (444751189) Chronic pain syndrome (G89.4) Active confirmed Problem Complex regional pain syndrome type I of right lower limb (disorder) (29489934919070 9) Complex regional pain syndrome I of right lower limb (G90.521) Active confirmed Problem Complex regional pain syndrome of lower limb (disorder) (104139269) Complex regional pain syndrome I of unspecified lower limb (G90.529) Active confirmed Problem Post-laminectom y syndrome (37000469) Postlaminectomy syndrome, not elsewhere classified (M96.1) Active confirmed Problem Long-term current use of drug therapy (439055499) Other buttermaker helper (current) drug therapy (Z79.899) Active confirmed Problem Lumbar spondylosis (930112937) lumbar spondylosis (M47.816) Active confirmed Problem Cervical spondylosis (828214827) cervical spondylosis (M47.812) Active confirmed Vital Signs Heart Rate 81 /min 06/08/2025 Blood pressure diastolic 75 mm Hg 06/08/2025 Height 65 in 06/08/2025 Blood pressure systolic 126 mm Hg 06/08/2025 Weight 145 lbs 06/08/2025 BMI 24.13 kg/m2 06/08/2025 Encounters Encounter Location Date Provider Diagnosis [facility] [address] [place] [address] 07/24/2024 Red Tamayo Other buttermaker helper (current) drug therapy Z79.899 ; lumbar spondylosis M47.816 ; cervical spondylosis M47.812 ; Postlaminectomy syndrome, not elsewhere classified M96.1 and Complex regional pain syndrome I of right lower limb G90.521 [facility] [address] [place] [address] 09/26/2024 Red Tamayo Other buttermaker helper (current) drug therapy Z79.899 ; lumbar spondylosis M47.816 ; cervical spondylosis M47.812 ; Postlaminectomy syndrome, not elsewhere classified M96.1 and Complex regional pain syndrome I of right lower limb G90.521 [facility] [address] [place] [address] 11/20/2024 Red Tamayo Other buttermaker helper (current) drug therapy Z79.899 ; lumbar spondylosis M47.816 ; cervical spondylosis M47.812 ; Postlaminectomy syndrome, not elsewhere classified M96.1 and Complex regional pain syndrome I of right lower limb G90.521 [facility] [address] [place] [address] 01/30/2025 Red Tamayo Other usp (current) drug therapy Z79.899 ; lumbar spondylosis M47.816 ; cervical spondylosis M47.812 ; Postlaminectomy syndrome, not elsewhere classified M96.1 and Complex regional pain syndrome I of right lower limb G90.521 [facility] [address] [place] [address] 03/27/2025 Red Tamayo Other buttermaker helper (current) drug therapy Z79.899 ; lumbar spondylosis M47.816 ; cervical spondylosis M47.812 ; Postlaminectomy syndrome, not elsewhere classified M96.1 and Complex regional pain syndrome I of right lower limb G90.521 [facility] [address] [place] [address] 04/26/2025 Red Tamayo Other buttermaker helper (current) drug therapy Z79.899 ; lumbar spondylosis M47.816 ; cervical spondylosis M47.812 ; Postlaminectomy syndrome, not elsewhere classified M96.1 and Complex regional pain syndrome I of right lower limb G90.521 [facility] [address] [place] [address] 06/08/2025 Red Tamayo Other buttermaker helper (current) drug therapy Z79.899 ; lumbar spondylosis M47.816 ; cervical spondylosis M47.812 ; Postlaminectomy syndrome, not elsewhere classified M96.1 and Complex regional pain syndrome I of right lower limb G90.521 [facility] [address] [place] [address] 07/24/2024 Red Tamayo Other usp (current) drug therapy Z79.899 [facility] [address] [place] [address] 08/02/2024 Red Tamayo [facility] [address] [place] [address] 09/26/2024 Red Tamayo Other buttermaker helper (current) drug therapy Z79.899 [facility] [address] [place] [address] 11/20/2024 Red Tamayo Other usp (current) drug therapy Z79.899 [facility] [address] [place] [address] 12/01/2024 Red Tamayo [facility] [address] [place] [address] 01/30/2025 Red Tamayo Other buttermaker helper (current) drug therapy Z79.899 [facility] [address] [place] [address] 02/04/2025 Red Tamayo [facility] [address] [place] [address] 03/27/2025 Red Tamayo Other buttermaker helper (current) drug therapy Z79.899 [facility] [address] [place] [address] 03/28/2025 Red Tamayo [facility] [address] [place] [address] 04/26/2025 Red Tamayo Other usp (current) drug therapy Z79.899 [facility] [address] [place] [address] 06/08/2025 Red Tamayo Other buttermaker helper (current) drug therapy Z79.899 [facility] [address] [place] [address] 06/15/2025 Red Tamayo Other usp (current) drug therapy Z79.899 Assessments Encounter Date Diagnosis (ICD Code) Assessment Notes Treatment Notes Treatment Clinical Notes Section Notes 11/20/2024 Other buttermaker helper (current) drug therapy (ICD-10 - Z79.899) 06/08/2025 Other usp (current) drug therapy (ICD-10 - Z79.899) 06/08/2025 Other buttermaker helper (current) drug therapy (ICD-10 - Z79.899) June 08, 2025 1. Refill percocet 7.5/325mg TID 2. Refill tizanidine 4mg TID - stop 3. Refill Lidocaine patch daily as directed 4. Order TENS unit 5. Follow up in 2 months 6. Start Robaxn 500mg TID 03/27/2025 Ms. Damon is a 64 year-old [...] any side effect of the medication. Johnathan miller UDS were reviewed. Opioid risk assessment is low. 73IAF16 - Patient with increased spasms to her [...] TENS unit for her chronic back pain. 04/26/2025 Other usp (current) drug therapy (ICD-10 - Z79.899) 04/26/2025 Other usp (current) drug therapy (ICD-10 - Z79.899) 04/26/2025 [...] were reviewed. Opioid risk assessment is low. 06/15/2025 Other buttermaker helper (current) drug therapy (ICD-10 - Z79.899) 03/27/2025 Other buttermaker helper (current) drug therapy (ICD-10 - Z79.899) 01/30/2025 Other usp (current) drug therapy (ICD-10 - Z79.899) 01/30/2025 [...] two months, or sooner if needed. 03/27/2025 Other buttermaker helper (current) drug therapy (ICD-10 - Z79.899) 03/27/2025 [...] reviewed. Opioid risk assessment is low. 01/30/2025 Other buttermaker helper (current) drug therapy (ICD-10 - Z79.899) 11/20/2024 Other usp (current) drug therapy (ICD-10 - [...] refilled and f/u 2 months. 09/26/2024 Other usp (current) drug therapy (ICD-10 - Z79.899) 09/26/2024 Other usp (current) drug therapy (ICD-10 - Z79.899) 09/26/2024 [...] Meds refilled and f/u 2 months. 07/24/2024 Other buttermaker helper (current) drug therapy (ICD-10 - Z79.899) 07/24/2024 Other buttermaker helper (current) drug therapy (ICD-10 - Z79.899) July [...] risk assessment is low. f/u 2 months 67AMG96 - Patient with chronic LBP with radicular [...] validate a good response prior to implant. 77MUE38 - Patient presents today to discuss further [...] risk assessment is low. f/u 2 months 29LOG51 - Patient with chronic LBP with radicular [...] validate a good response prior to implant. 09FBK78 - Patient presents today to discuss further [...] risk assessment is low. f/u 2 months 39VWD50 - Patient with chronic LBP with radicular [...] validate a good response prior to implant. 73SPI84 - Patient presents today to discuss further [...] reviewed. Meds refilled and f/u 2 months. 03/27/2025 lumbar spondylosis (ICD-10 - M47.816) 03/27/2025 [...] in two months, or sooner if needed. 04/26/2025 lumbar spondylosis (ICD-10 - M47.816) 03/27/2025 [...] were reviewed. Opioid risk assessment is low. 06/08/2025 lumbar spondylosis (ICD-10 - M47.816) 03/27/2025 Ms. Damon is a 64 year-old with complaints chronic low back pain who presents today for a follow up office visit for medication refill. Continues to report low back pain with with radicular pain. Also complains of bilateral shoulder pain. Describes pain as aching, burning, cramping, sharp, stabbing, numb, and tingling. Rates 10 on todays visit. She reports 20 percent [...] were reviewed. Opioid risk assessment is low. 05DXJ18 - Patient with increased spasms to her [...] were reviewed. Opioid risk assessment is low. 80IZR04 - Patient with increased spasms to her [...] TENS unit for her chronic back pain. 04/26/2025 cervical spondylosis (ICD-10 - M47.812) 03/27/2025 [...] reviewed. Opioid risk assessment is low. 01/30/2025 cervical spondylosis (ICD-10 - M47.812) 11/20/2024 Ms. Daomn returns today for office visit and medication [...] reviewed. Opioid risk assessment is low. 11/20/2024 Postlaminectomy syndrome, not elsewhere classified (ICD-10 [...] Meds refilled and f/u 2 months. 07/24/2024 Postlaminectomy syndrome, not elsewhere classified (ICD-10 [...] risk assessment is low. f/u 2 months 52DHH84 - Patient with chronic LBP with radicular [...] validate a good response prior to implant. 40BQM83 - Patient presents today to discuss further [...] for her back and radicular pain. 07/24/2024 Complex regional pain syndrome I of [...] risk assessment is low. f/u 2 months 98FWT21 - Patient with chronic LBP with radicular [...] validate a good response prior to implant. 80BID75 - Patient presents today to discuss further [...] reviewed. Meds refilled and f/u 2 months. 03/27/2025 Postlaminectomy syndrome, not elsewhere classified (ICD-10 [...] Meds refilled and f/u 2 months. 01/30/2025 Postlaminectomy syndrome, not elsewhere classified (ICD-10 [...] in two months, or sooner if needed. 04/26/2025 Postlaminectomy syndrome, not elsewhere classified (ICD-10 [...] were reviewed. Opioid risk assessment is low. 06/08/2025 Postlaminectomy syndrome, not elsewhere classified (ICD-10 [...] were reviewed. Opioid risk assessment is low. 55ICL18 - Patient with increased spasms to her [...] were reviewed. Opioid risk assessment is low. 41YKA95 - Patient with increased spasms to her [...] TENS unit for her chronic back pain. 04/26/2025 Complex regional pain syndrome I of [...] reviewed. Opioid risk assessment is low. 01/30/2025 Complex regional pain syndrome I of [...] were reviewed. Opioid risk assessment is low. 09/14/2024 11/29/23 Ms. Damon returns today for [...] risk assessment is low. f/u 2 months 45ODA99 - Patient with chronic LBP with radicular [...] validate a good response prior to implant. 45OAO22 - Patient presents today to discuss further [...] risk assessment is low. f/u 2 months 98VRW80 - Patient with chronic LBP with radicular [...] validate a good response prior to implant. 10XJP51 - Patient presents today to discuss further [...] risk assessment is low. f/u 2 months 07KNW25 - Patient with chronic LBP with radicular [...] validate a good response prior to implant. 20XGI68 - Patient presents today to discuss further [...] Definitive 01/30/2025 Next Appt Details Provider Name:Red Gagnon Kai cooney, 07/04/2025 04:00:00 PM, [address], [place], [address], Insurance Providers Payer Name Payer Address Payer Phone Subscriber Number Group Number Insured Name Patient Relationship to Insured Coverage Start Date Coverage End Date [employer] [address] [place] [address] [id number] Diamond Damon Self - patient is the insured 5 [place] [address] [place] [address] [id number] Diamond Damon Self - patient is the [...] Hernia repair / [facility] / (OP) 03/14/2021 [place] teeth/ Dr. eHss / (OP) 1976 oophorectomy (left)/ [facility] / ( OP) 2005 Ovarien Cyst Rupture/ Kenyatta A Elvis in [facility] / with a 3-4 day stay 1987 Bladder lift / [facility] / Dr. Daniel Crawford / (OP) 2005 Tubal abdominal ligation / in [place] / (O P) 1981 Tonsillectomy/ [facility] / (OP) 19 66 RT Shoulder / [facility] / (OP) 198 2 Neck (cervical discetomy)Dr. Marc/ [facility] / over night stay 2004 LT Hand Surgery x2/ [facility] / wi th a 3 day stay 1976 Cholecystectomy/ [facility] / overn ight stay 2002 Appendectomy/ [facility] / overnigh t stay 2003 Left ankle surgery x2/ [facility] / with a 3 day stay 1999 Hospitalization History Reason Date(Month/Year) Coughing/ [facility]/1 day stay 01/2025 Bowel obstruction / [facility] / treated and rel eased 02/2021
--- OUTSIDE RECORDS SUMMARY | 2025-06-16 20:15 | XMS_ITS | Patient Health Record ---
Author Organization [facility] Address [address] [place] [address] [address] [place] [address] Care Team Providers Care Mortician Investigator Name Role Phone Jaelyn Guerrero Unavailable Unavailable [...] Status Risk Notes Problem Chronic pain syndrome (843177565) Chronic pain syndrome (G89.4) Active confirmed Problem Complex regional pain syndrome type I of right lower limb (disorder) (46738950872426 9) Complex regional pain syndrome I of right lower limb (G90.521) Active confirmed Problem Complex regional pain syndrome of lower limb (disorder) (172442747) Complex regional pain syndrome I of unspecified lower limb (G90.529) Active confirmed Problem Post-laminectom y syndrome (88693505) Postlaminectomy syndrome, not elsewhere classified (M96.1) Active confirmed Problem Long-term current use of drug therapy (007521182) 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 therapy (Z79.899) Active confirmed Problem Lumbar spondylosis (564178291) lumbar spondylosis (M47.816) Active confirmed Problem Cervical spondylosis (081292284) cervical spondylosis (M47.812) Active confirmed Plan Of Treatment Pending Test Test Name Order Date Urine Test LCMS Definitive 08/16/2023 Insurance Providers Payer Name Payer Address Payer Phone Subscriber Number Group Number Insured Name Patient Relationship to Insured Coverage Start Date Coverage End Date [place] Medicaid [address] [place] [phone] [id number] Diamond Damon Self - patient is the insured 9 Medical (General) History Medical History History ICD Code anxiety-/Jaelyn Renteria REGULATORY AFFAIRS MANAGER asthma-1979/Jaelyn Renteria REGULATORY AFFAIRS MANAGER bipolar disorder-1993/Jaelyn Renteria REGULATORY AFFAIRS MANAGER COPD-1979/Jaelyn Renteria REGULATORY AFFAIRS MANAGER fibromyalgia-1989/Jaelyn Godkelley REGULATORY AFFAIRS MANAGER depression-/Jaelyn Renteria REGULATORY AFFAIRS MANAGER [id number] an issue/Jaelyn Martinez odkelley REGULATORY AFFAIRS MANAGER Stroke-1993/Jaelyn Renteria REGULATORY AFFAIRS MANAGER Hypothyroidism-1979/Jaelyn Renteria REGULATORY AFFAIRS MANAGER [id number]/Jaelyn Renteria REGULATORY AFFAIRS MANAGER Degenerative disc disease-1999/Jaelyn Go dby REGULATORY AFFAIRS MANAGER Surgical History Surgery Date(Month/Year) Left ankle surgery x2/ [facility] / with a 3 day stay 1999 Appendectomy/ [facility] / overnigh t stay 2003 Cholecystectomy/ [facility] / overn ight stay 2002 LT Hand Surgery x2/ [facility] / wi th a 3 day stay 1976 Neck (cervical discetomy)Dr. Marc/ [facility] / over night stay 2005 RT Shoulder / [facility] / (OP) 198 2 Tonsillectomy/ [facility] / (OP) 19 66 Tubal abdominal ligation / in [place] / (O P) 1981 Bladder lift / [facility] / Dr. Daniel Crawford / (OP) 2005 Ovarien Cyst Rupture/ [facility] A Elvis in [facility] / with a 3-4 day stay 1987 oophorectomy (left)/ [facility] / ( OP) 2005 Perkins teeth/ Dr. Hess / (OP) 1976 Hernia repair / [facility] / (OP) 03/14/2021 Hospitalization History Reason Date(Month/Year) Bowel obstruction / [facility] / treated and rel eased 02/2021
== END ==
LOC: SL 20:12
PROVIDERS: PCP Nurse Practitioner Family; Visit Provider Nurse Practitioner Family
DX: G47.33 Obstructive sleep apnea (adult) (pediatric) (principal)

== ENCOUNTER 2025-06-21 15:34 | Emergency (ER) | payer MEDICARE, MEDICAID, SELFPAY ==
--- OUTSIDE RECORDS SUMMARY | 2018-01-11 19:54 | XMS_ITS | Encounter Summary ---
[facility] [address] [place] [address] Care Team Providers Care Hand Zipper Trimmer Name Role Phone Kamlesh Abdullahi MD Primary Care Provider [phone] Reason for Referral * Hospital - Outpatient (Routine) - Closed Specialty Diagnoses / Procedures Referred By Patricia neri Referred To Contact Sleep Medicine Diagnoses Obstructive sleep apnea Snoring Excessive daytime sleepiness Sleep talking Procedures Polysomnography 4 or More Parameters Amanuel Elizalde MD [address] [place] [address] 3 [place] [address] Phone: tel: fax: [facility] [address] [place] [address] Phone: tel: Referral ID Status Reason Start Date Expiration Date Visits Re quested Visits Authorized [id number] Closed 12/07/2017 01/11/2018 1 1 Reason for Visit * Hospital - Outpatient (Routine) - Closed Specialty Diagnoses / Procedures Referred By Patricia neri Referred To Contact Sleep Medicine Diagnoses Obstructive sleep apnea Snoring Excessive daytime sleepiness Sleep talking Procedures Polysomnography 4 or More Parameters Amanuel Elizalde MD [address] [facility] [address] [address] Phone: tel: fax: [facility] [address] [place] [address] Phone: tel: Referral ID Status Reason Start Date Expiration Date Visits Re quested Visits Authorized [id number] Closed 12/07/2017 01/11/2018 1 1 Encounter Details Date Type Department Care Team (Latest Contact Info) Description 01/11/2018 7:54 PM EDT Hospital Encounter [facility] [address] [place] [address] Amanuel Elizalde MD [address] [facility] [address] [place] [address] Obstructive sleep apnea; Snoring; Excessive [...] Elizalde MD - 01/12/2018 4:[address] [facility] Pulmonary, Critical Care, and Sleep Medicine Amanuel Elizalde M.D. [address] [facility] [address] Medical Office [facility] # [address] [id number]. POLYSOMNOGRAPHY INTERPRETATION Date of Study: 01/11/2018 Patient [...] a co-existing sleep disorder such as Narcolepsy, PATHOLOGIST ASSISTANT Hypersomnolence or Insufficient Sleep Syndrome. To sort [...] feel free to contact the office of [facility] Pulmonary, Critical Care and Sleep Medicine at [phone], if you have any questions. Best regards, This document was electronically signed by Amanuel Elizalde MD January 12, 2018 4:11 PM Procedure Note Amanuel Elizalde MD - 01/12/[address] [facility] Pulmonary, Critical Care, and Sleep Medicine Amanuel Elizalde M.D. [address] [facility] [address] Medical Office [address] [id number]. POLYSOMNOGRAPHY INTERPRETATION Date of Study: 01/11/2018 Patient [...] has a co-existing sleep disorder such asNarcolepsy, PATHOLOGIST ASSISTANT Hypersomnolence or Insufficient Sleep Syndrome. To sort [...] feel free [facility] at [phone], if you haveany questions. Best regards, This [...] documented as of this encounter Care Teams Hand Zipper Trimmer Relationship Specialty Start Date End Date Kamlesh Abdullahi MD [address] [place] [address] PCP - General Internal Medicine 06/21/17 01/15/19 documented as of this encounter
--- OUTSIDE RECORDS SUMMARY | 2018-03-10 12:00 | XMS_ITS | Encounter Summary ---
[facility] [address] [place] [address] Care Team Providers Care Lockstitch Lining Maker Name Role Phone Kamlesh Abdullahi MD Primary Care Provider [phone] Reason for Visit * Hospital - Outpatient (Routine) - Closed Specialty Diagnoses / Procedures Referred By Patricia neri Referred To Contact Sleep Medicine Diagnoses Dystonia Partial symptomatic epilepsy with complex partial seizures, not intractable, without status epilepticus Procedures EEG EEG Awake or Asleep Routine Regan Bruno MD Phone: tel: fax: [facility] [address] [place] [address] Phone: tel: Referral ID Status Reason Start Date Expiration Date Visits Re quested Visits Authorized [id number] Closed 02/28/2018 02/28/2019 1 1 Encounter Details Date Type Department Care Team (Latest Contact Info) Description 03/10/2018 12:00 PM EDT Hospital Encounter [facility] [address] [place] [address] Regan Bruno MD [address] [place] [address] Dystonia; Partial symptomatic epilepsy with complex partial [...] documented as of this encounter Care Teams Lockstitch Lining Maker Relationship Specialty Start Date End Date Kamlesh Abdullahi MD [address] [place], [place] [id number] PCP - General Internal Medicine 06/21/17 01/15/19 documented as of this encounter
[2025-06-21 15:42] VITALS: BP 170/85; PULSE 88; RESP 16; TEMP 36.7; O2SAT 99; BMI 24.1
[2025-06-21 15:50] VITALS: BP 157/90; PULSE 81; O2SAT 98
--- OUTSIDE RECORDS SUMMARY | 2025-06-21 15:52 | XMS_ITS | Encounter Summary ---
Author Organization [employer] ([place], [place], [place], [place]) Address [address] [place] [address] Care Team Providers Care Ultrasound Technologist Name Role Phone Jaelyn Renteria APRN Primary Care Provider [phone] Vanessa Green MD Unavailable Encounter Details Date Type Department Care Team (Late st Contact Info) Description 01/05/2019 Transcribed Document [facility] [place] [address] [place] [address] ProviderLexi MD [address] [place] [address] Social History Tobacco Use Types Packs/Day [...] Source : Stated Height Entry Format : Paden Height, Feet : 5 ft(Converted to: 152 cm, 60 Inch) Height, Inches : 6 Inch(Converted to: 0 ft 6 Inch, 15.24 cm) Clinical Height : 167.64 cm Weight Source : Standing scale Weight Entry Format : Paden Clinical Dosing Weight : 66.36 kg Weight, Pounds : 146 lb Body Surface Area (BSA) : 1.75 m2 Body Mass Index : 23.6 kg/m2 Whiteside Body Weight : 59 kg Albina Dove [...] Ambulatory Legal Guardian : Friend Support Person/Patient Rig Builder : Yes Support Person/Pt Rep Name : maria teresa Support Person/Pt Rep Contact Information : [phone] Want Family/Rep/Phys Notified of Admit : No Emergency Contact #1 : na Emergency Contact #1 Phone Number : bryon Emergency Contact #1 Relationship : rhonda Emergency Contact #2 : a Emergency Contact #2 Phone Number : jeffrey Emergency Contact #2 Relationship : na Information Obtained From : Patient Primary Language : Hong Konger Preferred Communication Mode : Verbal Communication Barrier [...] Scale Risk Level : 25-45 Medium Risk [place] Fall Interventions : Adequate lighting, Assistive devices [...] on filedocumented in this encounter Care Teams Ultrasound Technologist Relationship Specialty Start Date End Date Jaelyn Renteria, KEENA [address] [place] [address] PCP - General Family Medicine 10/06/22 Vanessa Green MD [address] [place] [phone] Marble Carver Rheumatology 10/06/22 documented as of this encounter
--- OUTSIDE RECORDS SUMMARY | 2025-06-21 15:52 | XMS_ITS | Clinical Summary ---
Author Organization [employer] ([place], [place], [place], [place]) Address [address] [place] [address] Care Team Providers Care Automation And Control Engineer Name Role Phone Jaelyn Renteria APRN Primary Care Provider [phone] Vanessa Green MD Unavailable Allergies Active Allergy [...] High 12/16/2012 Other reaction(s): Confusion, Flushing, Hallucinations Jovzxcjt-Bdqfgpmbik-Pda ymyxin Itching High 10/07/2022 Other Anxiety Low [...] Date Pj rded Speak language other than Russian at home Not on file 09/11/2023 Want [...] (2 of 2 - PCV) 06/12/2016, 01/02/2015 Tobacco Cessation Counseling and Screening (12+) 05/19/2024 05/19/2023 Falls Risk Screening 08/30/2024 COVID-19 VACCINE ( - season) 2025 Influenza Vaccine (#1) 2025 DTAP/TDAP/TD VACCINES (2 - Td or Tdap) 03/06/2027 Respiratory Syncytial Virus (RSV) Adult or (1 - 1-dose 75+ series) 12/03/2034 [place] [address] [place]ICA[place] Care Teams Automation And Control Engineer Relationship Specialty Start Date End Date Jaelyn Renteria, WRAPPER STRIPPER [address] [place] [address] PCP - General Family Medicine 10/06/22 Vanessa Green MD [address] [place] [phone] Mold Filler Rheumatology 10/06/22
--- OUTSIDE RECORDS SUMMARY | 2025-06-21 15:52 | XMS_ITS | Encounter Summary ---
Author Organization [facility] Address [address] [place] [address] Care Team Providers Care Image Archivist Name Role Phone Red Tamayo MD Primary Care Provider [phone] Encounter Details Date Type Department Care Team (Late st Contact Info) Description 09/07/2017 Telephone [facility] [address] [phone] Kamlesh Abdullahi MD [address] [address] Social History Tobacco Use Types [...] documented as of this encounter Care Teams Image Archivist Relationship Specialty Start Date End Date Red Tamayo MD [address] [place] [address] PCP - General Pain Medicine 12/29/23 documented as of this encounter
--- OUTSIDE RECORDS SUMMARY | 2025-06-21 15:52 | XMS_ITS | Encounter Summary ---
Author Organization [employer] ([place], [place], [place], [place]) Address [address] [place] [address] Care Team Providers Care Market Relationship Manager Name Role Phone Jaelyn Renteria APRN Primary Care Provider [phone] Vanessa Green MD Unavailable Encounter Details Date Type Department Care Team (Late st Contact Info) Description 01/05/2019 Transcribed Document [facility] [place] Family Medicine [address] [place] [address] ProviderLexi MD [address] [place] [address] Social History Tobacco Use Types Packs/Day [...] Lexi ProviderMD - 01/05/2019 2:37 PM CDT [address] [address] LILI DAMON :1960 Visit Time:01/05/2019 [...] before breakfast on empty stomach Where: [address] [facility] [address] [place] [id number]- Medications What How Much When Instructions Next [...] Garlic and onions. ? Spicy foods. ? [place] fruits, including oranges, rhianna, or limes. ? [...] 02/01/2009 Document Revised: 11/07/2012 Document Reviewed: 05/09/2016 [employer] Interactive Patient Education ?? 2017 [employer] Esophagogastroduodenoscopy, Care After Introduction Refer to [...] times a day. General instructions ??? Take pjcs-rap-didtueo and prescription medicines only as told by [...] to digest. ? Rest often. ??? Take krzp-via-tkwpzti or prescription medicines only as told by [...] 09/18/2011 Document Revised: 05/10/2017 Document Reviewed: 05/10/2017 [employer] Interactive Patient Education ?? 2017 [employer]. omeprazole (oh MEP ra zol) FIRST Omeprazole, [...] by infection with Helicobacter pylori (H. pylori). Hvuq-wpk-dkgapqe (OTC) omeprazole is used to help control [...] medicine exactly as directed. Use Prilosec OTC (sfbv-qtq-jxyyddw) exactly as directed on the label, or [...] may report side effects to FDA at [phone]. What other drugs will affect omeprazole? Sometimes it is not safe to use certain medications at the same time. Some drugs can affect your blood levels of other drugs you take, which may increase side effects or make the medications less effective. Tell your doctor about all your current medicines. Many drugs can affect omeprazole, especially: ? clopidogrel; ?? methotrexate; ?? Peggs's wort; or ?? an antibiotic--amoxicillin, clarithromycin, rifampin. This list is not complete and many other drugs may affect omeprazole. This includes prescription and qkyv-uyc-foqxjfp medicines, vitamins, and herbal products. Not all [...] to ensure that the information provided by [employer]. ('[employer]') is accurate, up-to-date, and complete, but no guarantee is made to that effect. Drug information contained herein may be time sensitive. [employer] information has been compiled for use by healthcare practitioners and consumers in the [place] and therefore [employer] does not warrant that uses outside of the [place] are appropriate, unless specifically indicated otherwise. [employer] drug information does not endorse drugs, diagnose patients or recommend therapy. [employer] drug information is an informational resource designed [...] effective or appropriate for any given patient. [employer] does not assume any responsibility for any aspect of healthcare administered with the aid of information [employer] provides. The information contained herein is not intended to cover all possible uses, directions, precautions, warnings, drug interactions, allergic reactions, or adverse effects. If you have questions about the drugs you are taking, check with your doctor, nurse or pharmacist. Copyright 7776-7747 [employer] Version: 19.01. Revision Date: 02/21/2018. Emergency Awareness [...] Assistance with quitting is available by contacting 1-363-HNDG-NOW. This is a free resource providing counseling, support, and referral. Or you may contact your personal physician. [employer] Suicide Prevention Lifeline: The National Suicide Prevention [...] Be sure to sign up for the [facility] patient portal, which gives you 22/03 access to your medical information ??? including these discharge instructions ??? using your computer, smartphone, or tablet. Just go to QBE to get started. Questions? Call . Test Results Laboratory or Other Results This Visit (last charted value for your 01/05/2019 visit) No Laboratory or Other Results This Visit Patient Name:JACYLILI I have received this information and was given the opportunity to ask questions. Patient/Housecalls Nurse Name: Patient/Housecalls Nurse Signature: Relationship to Patient: Clinician/Hospital Housecalls Nurse Signature: Date: Electronically signed by Jarocho Traore Conversion Nitroglycerin Separator Operator Cerner at 12/14/2022 11:54 AM CDT documented in this encounter Plan of Treatment Not on file documented as of this encounter Visit Diagnoses Not on filedocumented in this encounter Care Teams Market Relationship Manager Relationship Specialty Start Date End Date Jaelyn Renteria APRN [address] [place] [address] PCP - General Family Medicine 10/06/22 Vanessa Green MD [address] [place] [phone] Biological Science Technician Rheumatology 10/06/22 documented as of this encounter
--- OUTSIDE RECORDS SUMMARY | 2025-06-21 15:52 | XMS_ITS | Encounter Summary ---
Author Organization [employer] ([place], [place], [place], [place]) Address [address] [place] [address] Care Team Providers Care Spindle Carver Name Role Phone Jaelyn Renteria APRN Primary Care Provider [phone] Vanessa Green MD Unavailable Encounter Details Date Type Department Care Team (Late st Contact Info) Description 01/05/2019 Transcribed Document [facility] [place] [address] [place] [address] ProviderLexi MD [address] [place] [address] Social History Tobacco Use Types Packs/Day [...] Garlic and onions. ? Spicy foods. ? Stebbins fruits, including oranges, rhianna, or limes. ? [...] 02/01/2009 Document Revised: 11/07/2012 Document Reviewed: 05/09/2016 [employer] Interactive Patient Education ? 2017 [employer] Esophagogastroduodenoscopy, Care After Introduction Refer to [...] 2?3 times a day. General instructions??? Take uxdw-jpj-jejifbf and prescription medicines only as told by [...] to digest. ? Rest often. ??? Take kuip-osf-qzexidk or prescription medicines only as told by [...] 05/10/2017 Else[employer] Interactive Patient Education ? 2017 [employer] documented in this encounter Plan of Treatment Not on file documented as of this encounter Visit Diagnoses Not on filedocumented in this encounter Care Teams Spindle Carver Relationship Specialty Start Date End Date Jaelyn Renteria APRN [address] [place] [address] PCP - General Family Medicine 10/06/22 Vanessa Green MD [address] [place] [phone] Educator Senior Clinical Rheumatology 10/06/22 documented as of this encounter
--- OUTSIDE RECORDS SUMMARY | 2025-06-21 15:52 | XMS_ITS | Encounter Summary ---
Author Organization [employer] ([place], [place], [place], [place]) Address [address] [place] [address] Care Team Providers Care Schedule Manager Name Role Phone Jaelyn Renteria APRN Primary Care Provider [phone] Vanessa Green MD Unavailable Encounter Details Date Type Department Care Team (Late st Contact Info) Description 06/10/2019 Transcribed Document [facility] [place] [facility] [place] [address] ProviderLexi MD [address] [place] [address] Social History Tobacco Use Types Packs/Day [...] constant. Heat therapy is beneficial. She takes jvxq-fgw-ttdoxfa Tylenol and ibuprofen. She has had his [...] weeks. Meghan Abdullahi MD Electronically signed by [facility] Conversion Weight Analyst Cerner at 12/14/2022 11:47 AM CDT documented in this encounter Plan of Treatment Not on file documented as of this encounter Visit Diagnoses Not on filedocumented in this encounter Care Teams Schedule Manager Relationship Specialty Start Date End Date Jaelyn Renteria APRN [address] [place] [address] PCP - General Family Medicine 10/06/22 Vanessa Green MD [address] [place] [phone] Outside Medical Sales Representative Rheumatology 10/06/22 documented as of this encounter
--- OUTSIDE RECORDS SUMMARY | 2025-06-21 15:52 | XMS_ITS | Referral Summary ---
Author Organization [employer] ([place], [place], [place], [place]) Address [address] [place] [address] Care Team Providers Care Medical Insurance Verifier Name Role Phone Jaelyn Renteria APRN Primary Care Provider [phone] Vanessa Green MD Unavailable Allergies Active Allergy [...] High 12/16/2012 Other reaction(s): Confusion, Flushing, Hallucinations Poypzskz-Fgyuvecqtt-Zgn ymyxin Itching High 10/07/2022 Other Anxiety Low [...] Date Pj rded Speak language other than Jordanian at home Not on file 09/11/2023 Want [...] file Insurance [place] Care Teams Medical Insurance Verifier Relationship Specialty Start Date End Date Myra Jaelyn, UNLEAVENED DOUGH MIXER [address] [place] [address] PCP - General Family Medicine 10/06/22 Vanessa Green MD [address] [place] [phone] Production Assembler Rheumatology 10/06/22
--- OUTSIDE RECORDS SUMMARY | 2025-06-21 15:52 | XMS_ITS | Clinical Summary ---
Author Organization [facility] Address [address] [place] [address] Care Team Providers Care Piping Supervisor Name Role Phone Red Tamayo MD Primary Care Provider [phone] Allergies Active Allergy Reactions Criticality Noted Date [...] 11/23/19 Active Narcan 4 MG/0.1ML nasal spray [place] Nasal Use as directed in case of overdose 08/20/20 Active vitamin D (ERGOCALCIFEROL) 1.25 MG (23290 UT) capsule capsule Take 1 capsule by [...] Date Last Done Comments DXA SCAN 1960 COVID-19 Vaccine (#1) 12/03/1964 COLOGUARD 12/03/2004 COLON CANCER SCREENING 5 YEA [...] mammogram report. [place]. [address] NOTE: If a biopsy is performed on [...] areas of architectural distortion or clustered microcalcifications. us Shannon Campbell MEDICAL SUPPLY TECHNICIAN IMG MAMMOGRAPHY ORDERABL ES Final Result * Hepatitis panel, acute (08/06/2017 9:40 AM EST) Pathologist [facility] Hep A IgM Negative Negative 08/10/2017 5:11 [...] with a HCV Nucleic Acid Amplification test ([id number]). Blood Venipuncture / Unknown 08/06/2017 9:40 AM EST 08/06/2017 10:11 AM EST Narrative [facility] - 08/10/2017 5:11 AM EST Performed at: - [address] [id number] Telesales Specialist: Costa Munoz PhD, Phone: [phone] Kamlesh Abdullahi MD LAB BLOOD ORDERABLES Final Re sult [facility] [address] [place] [address], * (ABNORMAL) Lipid Panel (08/06/2017 9:40 AM EST) [facility] Total Cholesterol 234(H) 0 - 199 mg/dL 08/06/2017 10:31 AM EST [facility] Triglycerides 97 <150 mg/dL 08/06/2017 10:31 AM EST [facility] HDL Cholesterol 61(H) 40 - 60 mg/dL 08/06/2017 10:31 AM EST [facility] LDL Cholesterol 154(H) 0 - 99 mg/dL 08/06/2017 10:31 AM EST [facility] VLDL Cholesterol 19.4 mg/dL 08/06/20 17 10:31 AM EST [facility] LDL/HDL Ratio 2.52 08/06/2017 10:31 AM EST [facility] Blood Venipuncture / Unknown 08/06/2017 9:40 AM EST 08/06/2017 10:11 AM EST Narrative [facility] - 08/06/2017 10:31 AM EST Reference ranges for triglycerides, VLDL cholesterol, LDL cholesterol, and HDL cholesterol are not true population normal ranges but are threshold levels for increased risk of coronary artery disease established by ATP III guidelines from the National Cholesterol Education Program. us Kamlesh Abdullahi MD LAB BLOOD ORDERABLES Final Re sult [facility]
[address] [place] [address], from Last 3 Months or Most Recently Relevant to Health Maintenance Additional Health Concerns Infection Onset Date Last Indicated COVID (History) 03/11/2021 03/11/2021 Insurance MEDICAID [place] Advance Directives Documents on File Type Date Recorded Patient Public Health Engineer Expl anation PATIENT ADVANCE DIRECTIVES - SCAN 03/17/2023 3:46 PM PATIENT ADVANCE DIRECTIVES, BHOWEN, 06/13/2017 PATIENT ADVANCE DIRECTIVES - SCAN 03/17/2022 12:56 PM ADVANCE DIRECTIVE PATIENT ADVANCE DIRECTIVES - SCAN 02/13/2022 10:35 AM ADVANCE DIRECTIVE PATIENT ADVANCE DIRECTIVES - SCAN 03/05/2021 10:34 AM PATIENT ADVANCE DIRECTIVE, BHOWEN, 06/13/2017 PATIENT ADVANCE DIRECTIVES - SCAN 11/27/2020 8:49 AM Care Teams Piping Supervisor Relationship Specialty Start Date End Date Red Tamayo MD [address] [place] [address] PCP - General Pain Medicine 12/29/23
--- OUTSIDE RECORDS SUMMARY | 2025-06-21 15:52 | XMS_ITS | Encounter Summary ---
Author Organization [employer] ([place], [place], [place], [place]) Address [address] [place] [address] Care Team Providers Care Supervisor Heat Treating Name Role Phone Jaelyn Renteria APRN Primary Care Provider [phone] Vanessa Green MD Unavailable Encounter Details Date Type Department Care Team (Late st Contact Info) Description 01/05/[address] [facility] [place] Family Medicine [facility] [place] [address] ProviderLexi MD [address] [place] [address] Social History Tobacco Use Types Packs/Day [...] Endo PreOp Summary Primary Physician: GILBERT OLSON MD-[facility] Finalized Date/Time: 01/05/19 13:14:29 Pt. Name: LILI DAMONO.B./Sex: 1960 Female Med Rec #: [id number] Physician: GILBERT OLSON MD-[facility] Financial #: [id number] Pt. Type: O Room/Bed: [facility] [place]/ Admit/Disch: 01/05/19 12:03:00 - Institution: [facility] PreOp Case Times Entry 1 In Preop 01/05/19 12:58:00 Ready for Holding n/a Room Patient Ready for 01/05/19 13:14:00 Surgery Patient Out of Preop 01/05/19 13:14:00 Patient Out of n/a Holding Room [facility] PreOp Case Times Audit 01/05/19 13:14:28 Sales Representative Gas Service: BICKNEA Modifier: BICKNEA <+> 1 Patient Out of Preop <+> 1 Patient Ready for Surgery Finalized By: Albina Dove RN Document Signatures Signed By: Albina Dove RN 01/05/19 13:14 Electronically signed by Eugenie [facility] Conversion Analytical Chemistry Teacher Cerner at 12/14/2022 11:52 AM CDT documented in this encounter Plan of Treatment Not on file documented as of this encounter Visit Diagnoses Not on filedocumented in this encounter Care Teams Supervisor Heat Treating Relationship Specialty Start Date End Date Evakelley Jaelyn, HEARING INSTRUMENT SPECIALIST [address] [place] [address] PCP - General Family Medicine 10/06/22 Vanessa Green MD [address] [place] [phone] Wallcovering Hanger Rheumatology 10/06/22 documented as of this encounter
--- OUTSIDE RECORDS SUMMARY | 2025-06-21 15:52 | XMS_ITS | Encounter Summary ---
Author Organization [employer] ([place], [place], [place], [place]) Address [address] [place] [address] Care Team Providers Care Beef Grinder Name Role Phone Jaelyn Renteria APRN Primary Care Provider [phone] Vanessa Green MD Unavailable Encounter Details Date Type Department Care Team (Late st Contact Info) Description 01/05/2019 Transcribed Document [facility] [place] Family Medicine [facility] [place] [address] ProviderLexi MD [address] [place] [address] Social History Tobacco Use Types Packs/Day [...] Endo PACU Summary Primary Physician: GILBERT OLSON MD-[facility] Finalized Date/Time: 01/05/19 14:45:28 Pt. Name: LILI DAMON D.O.B./Sex: 1960 Female Med Rec #: [id number] Physician: GILBERT OLSON MD-[facility] Financial #: [id number] Pt. Type: O Room/Bed: [facility]/ Admit/Disch: 01/05/19 12:03:00 - Institution: [facility] [place] Endo PACU Case Times Entry 1 In PACU I 01/05/19 14:00:00 Ready for PACU 01/05/19 14:36:00 Discharge Discharge from PACU 01/05/19 14:45:00 I [facility] Endo PACU Case Times Audit 01/05/19 14:45:24 Drum Saw Operator: [id number] Modifier: [id number] <+> 1 Discharge from PACU I 01/05/19 14:43:14 Drum Saw Operator: [id number] Modifier: [id number] <+> 1 Ready for PACU Discharge Finalized By: Alee Rose RN Document Signatures Signed By: Alee Rose RN 01/05/19 14:45 Electronically signed by [facility] Conversion Stud Sheep Farmer Cerner at 12/14/2022 11:51 AM CDT documented in this encounter Plan of Treatment Not on file documented as of this encounter Visit Diagnoses Not on filedocumented in this encounter Care Teams Beef Grinder Relationship Specialty Start Date End Date Jaelyn Renteria, KEENA [address] [place] [address] PCP - General Family Medicine 10/06/22 Vanessa Green MD [address] [place] [phone] Fire Control Officer Rheumatology 10/06/22 documented as of this encounter
--- OUTSIDE RECORDS SUMMARY | 2025-06-21 15:52 | XMS_ITS | Encounter Summary ---
Author Organization [employer] ([place], [place], [place], [place]) Address [address] [place] [address] Care Team Providers Care Shop Helper Name Role Phone Jaelyn Renteria APRN Primary Care Provider [phone] Vanessa Green MD Unavailable Encounter Details Date Type Department Care Team (Late st Contact Info) Description 07/04/2019 Transcribed Document [facility] [place] [facility] [place] [address] ProviderLexi MD [address] [place] [address] Social History Tobacco Use Types Packs/Day [...] Lexi Vickers MD - 07/04/2019 2:30 PM ANDROID FRAMEWORK DEVELOPER Patient: LILI DAMON Age: 58 Years Sex: [...] on filedocumented in this encounter Care Teams Shop Helper Relationship Specialty Start Date End Date Jaelyn Renteria APRN [address] [place] [address] PCP - General Family Medicine 10/06/22 Vanessa Green MD [address] [place] [phone] Clock And Watch Hands Mounter Rheumatology 10/06/22 documented as of this encounter
--- OUTSIDE RECORDS SUMMARY | 2025-06-21 15:53 | XMS_ITS | Encounter Summary ---
Author Organization [employer] ([place], [place], [place], [place]) Address [address] [place] [address] Care Team Providers Care Systems Integration Manager Name Role Phone Jaelyn Renteria APRN Primary Care Provider [phone] Vanessa Green MD Unavailable Encounter Details Date Type Department Care Team (Late st Contact Info) Description 04/27/[address] [facility] [place] Family [place] [facility] [address] ProviderLexi MD [address] [place] [address] Social History Tobacco Use Types Packs/Day [...] on filedocumented in this encounter Care Teams Systems Integration Manager Relationship Specialty Start Date End Date Jaelyn Renteria APRN [address] [place] [address] PCP - General Family Medicine 10/06/22 Vanessa Green MD [address] [place] [phone] Demolition Expert Rheumatology 10/06/22 documented as of this encounter
--- OUTSIDE RECORDS SUMMARY | 2025-06-21 15:53 | XMS_ITS | Encounter Summary ---
Author Organization [employer] ([place], [place], [place], [place]) Address [address] [place] [address] Care Team Providers Care Machine Leather Trimmer Name Role Phone Jaelyn Renteria APRN Primary Care Provider [phone] Vanessa Green MD Unavailable Encounter Details Date Type Department Care Team (Late st Contact Info) Description 03/10/2019 Transcribed Document [facility] [place] [facility] [place] [address] ProviderLexi MD [address] [place] [address] Social History Tobacco Use Types Packs/Day [...] on filedocumented in this encounter Care Teams Machine Leather Trimmer Relationship Specialty Start Date End Date Jaelyn Renteria, KEENA [address] [place] [address] PCP - General Family Medicine 10/06/22 Vanessa Green MD [address] [place] [phone] Charge Manager Rheumatology 10/06/22 documented as of this encounter
--- OUTSIDE RECORDS SUMMARY | 2025-06-21 15:53 | XMS_ITS | Encounter Summary ---
Author Organization [employer] ([place], [place], [place], [place]) Address [address] [place] [address] Care Team Providers Care Cosmetic Account Coordinator Name Role Phone Jaelyn Renteria APRN Primary Care Provider [phone] Vanessa Green MD Unavailable Encounter Details Date Type Department Care Team (Late st Contact Info) Description 01/05/2019 Transcribed Document [facility] [place] Family Medicine [facility] [place] [address] ProviderLexi MD [address] [place] [address] Social History Tobacco Use Types Packs/Day [...] Endo IntraOp Summary Primary Physician: GILBERT OLSON MD-[facility] Finalized Date/Time: 01/05/19 13:55:28 Pt. Name: LILI DAMON D.O.B./Sex: 1960 Female Med Rec #: [id number] Physician: GILBERT OLSON MD-[facility] Financial #: [id number] Pt. Type: O Room/Bed: [facility] Admit/Disch: 01/05/19 12:03:00 - Institution[place] [facility] [place] - Case Attendance Entry 1 Entry 2 Entry 3 Case Attendee YOUSIF OLSON YVONNE D., RN STEFFI GONZALEZ MD KAREN, MD-GAE Role Performed Surgeon/Proceduralist, Miniature Set Designer, First Anesthesiologist First Time In 01/05/19 13:22:00 [...] 5 Case Attendee CRISTIAN ASHFORD KAREN KIM, METEOROLOGICAL AIDE Role Performed Miniature Set Designer, First METEOROLOGICAL AIDE/Nurse Cloth Printer Helper Time In 01/05/19 13:22:00 01/05/19 13:49:00 Time Out 01/05/19 13:57:00 01/05/19 13:57:00 Procedure Colonoscopy, Colonoscopy Esophagogastroduodenosco py, Duodenal Biopsy Other Attendee Superficial Wound Closed By: Last Modified By: CORNELIA DODD, RN CORNELIA DODD, RN 01/05/19 13:55:26 01/05/19 13:55:26 [facility] Endo - Case Attendance Audit 01/05/19 13:55:26 Palliative Care Nurse: HERBERT Modifier: HERBERT 1 <+> Time Out 1 <*> Procedure Colonoscopy, Esophagogastroduodenoscopy, Duodenal Biopsy 2 <+> Time Out 2 <*> Procedure Colonoscopy, Esophagogastroduodenoscopy, Duodenal Biopsy 3 <*> Procedure Colonoscopy, Esophagogastroduodenoscopy, Duodenal Biopsy 4 <+> Time Out 4 <*> Procedure Colonoscopy, Esophagogastroduodenoscopy, Duodenal Biopsy 5 <+> Time Out 5 <*> Procedure Colonoscopy 01/05/19 13:52:32 Palliative Care Nurse: HERBERT Modifier: ANDREWMAYD 1 <*> Procedure Duodenal Biopsy 3 <+> Time Out 3 <*> Procedure Colonoscopy, Esophagogastroduodenoscopy, Duodenal Biopsy <+> 5 Case Attendee <+> 5 Role Performed <+> 5 Time In <+> 5 Procedure 01/05/19 13:32:03 Palliative Care Nurse: HERBERT Modifier: ANNAYD <+> 1 Procedure 2 <*> Procedure Colonoscopy, Esophagogastroduodenoscopy 3 <*> Procedure Colonoscopy, Esophagogastroduodenoscopy 4 <*> Procedure Colonoscopy, Esophagogastroduodenoscopy 01/05/19 13:25:00 Palliative Care Nurse: HERBERT Modifier: ANDREWMAYD 2 <*> Procedure Colonoscopy, Esophagogastroduodenoscopy 3 <*> Procedure Colonoscopy, Esophagogastroduodenoscopy 4 <+> Time In 4 <*> Procedure Colonoscopy, Esophagogastroduodenoscopy 01/05/19 13:24:03 Palliative Care Nurse: HERBERT Modifier: ANNAYD <+> 4 Case Attendee [...] Endo - Case Times Audit 01/05/19 13:55:11 Palliative Care Nurse: HERBERT Modifier: HERBERT <+> 1 Out Room Time <+> 1 Stop Time <+> 1 Stop Time 01/05/19 13:30:14 Palliative Care Nurse: HERBERT Modifier: SHERMAYD <+> 1 Start Time 01/05/19 13:23:41 Palliative Care Nurse: HERBERT Modifier: ANDREWMAYD <+> 1 Anesthesia Ready [...] Modified By: CORNELIA DODD RN 01/05/19 13:25:10 [facility] Endo - Fire Risk Assessment Entry 1 Fire Info Surgical Site or 1- Yes Incision Above the Xyphoid Open O2 Source 1- Yes (Mask or Cannula) Available Ignition 1- Yes (ESU, Laser, Light Source) Fire Risk 3 Assessment Score Fire Score Fire Risk Yes Assessment Complete Fire Risk CORNELIA DODD, broommaker Verified By Fire Risk 01/05/19 13:24:00 Assessment Verified Date/Time Fire Risk High Risk Protocol Yes Implemented Standard Fire Yes Safety Precautions Followed Last Modified By: CORNELIA DODD, JOB 01/05/19 13:24:29 E Endo - General Case Orthopedics Teacher 1 Case Information OR Endo 04 E Case Level 1 Room Verified Yes Wound Class III - Contaminated Specialty SN Gastroenterology Anesthesia Type MAC ASA Class 3 Diagnosis Preop Diagnosis Z12.11/K59.00/R93.3 Postop Diagnosis gastritis Last Modified By: CORNELIA DODD RN 01/05/19 13:37:17 [facility] Endo - General Case Data Audit 01/05/19 13:37:17 Palliative Care Nurse: HERBERT Modifier: HERBERT 1 <*> OR Endo [...] Endo - Intraoperative Equipment Audit 01/05/19 13:26:28 Palliative Care Nurse: HERBERT Modifier: HERBERT <+> 2 Photo <+> [...] Endo - Patient Positioning Audit 01/05/19 13:32:04 Palliative Care Nurse: HERBERT Modifier: HERBERT Chaparro <*> Procedure Esophagogastroduodenoscopy [...] Endo - Surgical Procedures Audit 01/05/19 13:54:47 Palliative Care Nurse: HERBERT Modifier: SHERMAYD 1 <*> Procedure Colonoscopy 1 <+> Stop 01/05/19 13:47:41 Palliative Care Nurse: HERBERT Modifier: SHERMAYD 1 <*> Procedure Colonoscopy 1 <+> Physician States Cecum Reached 01/05/19 13:39:14 Palliative Care Nurse: HERBERT Modifier: ANDREWMAYD 1 <*> Procedure Colonoscopy 1 <+> Specialty 1 <*> Start 01/05/19 13:30:00 01/05/19 13:36:44 Palliative Care Nurse: HERBERT Modifier: SHERMAYD 2 <*> Procedure Esophagogastroduodenoscopy 2 <+> Stop 3 <*> Procedure Duodenal Biopsy 3 <+> Stop 01/05/19 13:31:59 Palliative Care Nurse: HERBERT Modifier: SHERMAYD <+> 1 Start 2 [...] Endo - Time Out Audit 01/05/19 13:32:05 Palliative Care Nurse: HERBERT Modifier: HERBERT 1 <*> Procedure to be Performed Colonoscopy, Esophagogastroduodenoscopy Case Comments <None> Finalized By: CORNELIA DODD, RN Document Signatures Signed By: CORNELIA DODD, RN 01/05/19 13:55 Electronically signed by [facility], [facility] Conversion Plant Utilities Engineer Cerner at 12/14/2022 12:10 PM CDT documented in this encounter Plan of Treatment Not on file documented as of this encounter Visit Diagnoses Not on filedocumented in this encounter Care Teams Cosmetic Account Coordinator Relationship Specialty Start Date End Date Jaelyn Renteria, SOLE BLACKER [address] [place] [address] PCP - General Family Medicine 10/06/22 Vanessa Green MD [address] [place] [phone] Drawing Tracer Rheumatology 10/06/22 documented as of this encounter
--- OUTSIDE RECORDS SUMMARY | 2025-06-21 15:53 | XMS_ITS | Encounter Summary ---
Author Organization [employer] ([place], [place], [place], [place]) Address [address] [place] [address] Care Team Providers Care Rfid Strategist Name Role Phone Jaelyn Renteria APRN Primary Care Provider [phone] Vanessa Green MD Unavailable Encounter Details Date Type Department Care Team (Late st Contact Info) Description 04/13/[address] [facility] [place] [facility] [place] [address] ProviderLexi MD [address] [place] [address] Social History Tobacco Use Types Packs/Day [...] on filedocumented in this encounter Care Teams Rfid Strategist Relationship Specialty Start Date End Date Jaelyn Renteria APRN [address] [place] [address] PCP - General Family Medicine 10/06/22 Vanessa Green MD [address] [place] [phone] Salesperson Parts Rheumatology 10/06/22 documented as of this encounter
--- OUTSIDE RECORDS SUMMARY | 2025-06-21 15:53 | XMS_ITS | Encounter Summary ---
Author Organization [employer] ([place], [place], [place], [place]) Address [address] [place] [address] Care Team Providers Care Personal Banking Officer Name Role Phone Jaelyn Renteria APRN Primary Care Provider [phone] Vanessa Green MD Unavailable Encounter Details Date Type Department Care Team (Late st Contact Info) Description 11/09/2018 Transcribed Document [facility] [place] [address] [place] [address] ProviderLexi MD [address] [place] [address] Social History Tobacco Use Types Packs/Day [...] on filedocumented in this encounter Care Teams Personal Banking Officer Relationship Specialty Start Date End Date Jaelyn Renteria APRN [address] [place] [address] PCP - General Family Medicine 10/06/22 Vanessa Green MD [address] [place] [phone] Rental Boats Caretaker Rheumatology 10/06/22 documented as of this encounter
--- OUTSIDE RECORDS SUMMARY | 2025-06-21 15:53 | XMS_ITS | Clinical Summary ---
Author Organization Healthcare Address [address] [place] [address] Care Team Providers Care Photographic Editor Name Role Phone Pcp, No Primary Care [...] Wellness (AWV) 1960 [facility]-/Child/Adol SDOH Screenings 1960 [id number] Vaccine (#1) 12/03/1964 [facility]- SDOH Screenings 12/03/1977 [...] provider. us Historical Provider GI PROCEDURE ORDERABLES Mi l Result * Cytology (04/17/1997 12:00 AM EDT) 04/17/1997 04/18/1997 Narrative [facility] - 04/23/1997 12:00 AM EDT [facility] MR #: [id number] [facility] LILI DAMON [place], [place] [address] 1960 (Age: 36) FW Collect Date: 04/17/1997 00:00 Receipt Date: 04/18/1997 00:00 Page 1 DEPARTMENT OF PATHOLOGY AND LABORATORY MEDICINE CYTOPATHOLOGY REPORT Email: [email or web address] * Converted Case * This report may not match the original report format ATTENDING MD/Practitioner: Mary Galan MD Service: [facility] Location: Reported: 04/23/1997 00:00 Collected: 04/17/1997 00:00 [...] results is suggested (please call Microbiology at [phone] for results). CLINICAL INFORMATION: Menstrual History: {Not Provided} Date of Last Menstrual Period: {Not Provided} SPECIMEN DESCRIPTION: A: THIN PREP(CERVICAL/ENDOCERVICAL)., THIN PREP PAP ICD: F: {Not Entered} SNOMED CODES: 1; O1A279.3 [id number] In cases where a pathologist has signed out the report, the service has been rendered in part by a resident. The signing pathologist has performed and is responsible for the reported pathologic evaluation. us Yumiko Galan MD LAB PATHOLOGY ORDERABLES Mi cornejo Result [facility] from Last 3 Months or Most Recently Relevant to Health Maintenance Insurance [place]ICA[place] AETNA MEDICARE Care Teams Photographic Editor Relationship Specialty Start Date End Date Pcp, Alicia [address] [place] [address] PCP - General Family Medicine 02/01/25
--- OUTSIDE RECORDS SUMMARY | 2025-06-21 15:53 | XMS_ITS | Encounter Summary ---
Author Organization [employer] ([place], [place], [place], [place]) Address [address] [place] [address] Care Team Providers Care Analysis Director Name Role Phone Jaelyn Renteria APRN Primary Care Provider [phone] Vanessa Green MD Unavailable Encounter Details Date Type Department Care Team (Late st Contact Info) Description 01/05/2019 Transcribed Document [facility] [place] [address] [place] [address] ProviderLexi MD [address] [place] [address] Social History Tobacco Use Types Packs/Day [...] Lexi ProviderMD - 01/05/2019 2:12 PM CDT [address] [address] LILI DAMON :1960 Visit Time:01/05/2019 [...] MD-GAE When Only if needed Where: [address] [facility] [address] [place] [id number]- Medications What How Much When Instructions Next [...] a broken bone while taking this medicine prison or more than once per day. What [...] by infection with Helicobacter pylori (H. pylori). Bxhk-imf-nrymnbg (OTC) omeprazole is used to help control [...] medicine exactly as directed. Use Prilosec OTC (kgas-gae-bxsvfxm) exactly as directed on the label, or [...] may report side effects to FDA at [phone]-[phone]. What other drugs will affect omeprazole? Sometimes [...] may affect omeprazole. This includes prescription and skwb-nyj-zonxhnc medicines, vitamins, and herbal products. Not all [...] to ensure that the information provided by [employer]. ('[employer]') is accurate, up-to-date, and complete, but no guarantee is made to that effect. Drug information contained herein may be time sensitive. [employer] information has been compiled for use by healthcare practitioners and consumers in the [place] and therefore [employer] does not warrant that uses outside of the [place] are appropriate, unless specifically indicated otherwise. [employer] drug information does not endorse drugs, diagnose patients or recommend therapy. [employer] drug information is an informational resource designed [...] effective or appropriate for any given patient. [employer] does not assume any responsibility for any aspect of healthcare administered with the aid of information [employer] provides. The information contained herein is not intended to cover all possible uses, directions, precautions, warnings, drug interactions, allergic reactions, or adverse effects. If you have questions about the drugs you are taking, check with your doctor, nurse or pharmacist. Copyright 8520-1489 [employer]. Version: 19.01. Revision Date: 02/21/2018. Emergency Awareness [...] Assistance with quitting is available by contacting 5-847-DRHI-NOW. This is a free resource providing counseling, [...] Be sure to sign up for the [employer] patient portal, which gives you 22/03 access to your medical information ??? including these discharge instructions ??? using your computer, smartphone, or tablet. Just go to [employer] to get started. Questions? Call . Test Results Laboratory or Other Results This Visit (last charted value for your 01/05/2019 visit) No Laboratory or Other Results This Visit Patient Name:LILI DAMON I have received this information and was given the opportunity to ask questions. Patient/Gas Furnace Installer Name: Patient/Gas Furnace Installer Signature: Relationship to Patient: Clinician/Hospital Gas Furnace Installer Signature: Date: documented in this encounter Plan of Treatment Not on file documented as of this encounter Visit Diagnoses Not on filedocumented in this encounter Care Teams Analysis Director Relationship Specialty Start Date End Date Jaelyn Renteria APRN [address] [place] [address] PCP - General Family Medicine 10/06/22 Vanessa Green MD [address] [place] [phone] Machine Milker Rheumatology 10/06/22 documented as of this encounter
--- NOTE | 2025-06-21 15:54 | ED_ITS ---
<Statement entered by Dana Yarbrough DO - 06/23/25 00:28> I was consulted by the SANKET, and we discussed the complexity of problems being addressed. I approve the treatment and management plan for this patient's care in the emergency department, thus performing a substantial portion of the medical decision making. Dana Yarbrough DO Discharge Plan Disposition Patient Disposition: Home, Self-Care Condition: Good Prescriptions Prescriptions: New methocarbamol 750 mg tablet 750 mg PO HS Qty: 10 0RF No Action guaifenesin 600 mg tablet extended release 12hr 600 mg PO DAILY Qty: 90 2RF tizanidine 4 mg tablet 4 mg PO Q8H Patient Comments: TAKE ONE TABLET BY MOUTH EVERY 8 HOURS naloxone [Narcan] 4 mg/actuation spray,non-aerosol 4 mg intranasal Q3M PRN (Reason: opioid overdose) Qty: 2 2RF Rx Instructions: spray 1 dose into ONE nostril; alternate nostrils w each dose until help arrives lidocaine 4 % adhesive patch,medicated topical albuterol sulfate [Ventolin HFA] 90 mcg/actuation HFA aerosol inhaler 2 puff inhalation Q6H PRN (Reason: shortness of breath or wheezing) Qty: 8.5 2RF hydrochlorothiazide 12.5 mg tablet See Rx Instructions .ROUTE .COMPLEX Qty: 30 2RF Dose Instruction: TAKE ONE TABLET BY MOUTH ONCE A DAY Rx Instructions: TAKE ONE TABLET BY MOUTH ONCE A DAY sennosides [senna] 8.6 mg tablet 8.6 mg PO .COMPLEX PRN (Reason: constipation) Qty: 30 2RF Rx Instructions: 8.6 mg orally PRN; levothyroxine 50 mcg tablet See Rx Instructions .ROUTE .COMPLEX Qty: 90 0RF Dose Instruction: TAKE 1 TABLET BY MOUTH ONCE DAILY Rx Instructions: TAKE 1 TABLET BY MOUTH ONCE DAILY bupropion HCl 300 mg tablet extended release 24 hr See Rx Instructions .ROUTE .COMPLEX Qty: 30 1RF Dose Instruction: TAKE 1 TABLET BY MOUTH ONCE DAILY Rx Instructions: TAKE 1 TABLET BY MOUTH ONCE DAILY polyethylene glycol 3350 [Miralax] 17 gram/dose powder 17 g PO DAILY Qty: 510 0RF oxycodone-acetaminophen 7.5-325 mg tablet 1 tab PO TID ondansetron 4 mg tablet,disintegrating 4 mg PO Q8H PRN (Reason: nausea and vomiting) 5 Days Qty: 10 0RF valacyclovir [Valtrex] 1 gram tablet 1,000 mg PO DAILY PRN (Reason: herpes) venlafaxine 150 mg capsule,extended release 24hr 150 mg PO DAILY Rx Instructions: TAKE ONE CAPSULE BY MOUTH ONCE A DAY fenofibrate nanocrystallized 145 mg tablet 145 mg PO DAILY Rx Instructions: TAKE ONE TABLET BY MOUTH ONCE A DAY Referrals Follow up/Referrals: Regan Navarrete APRN [Primary Care Provider, Family Practice] - See instructions Activity Restrictions/Add. Instructions Additional Instructions/Restrictions: Please return to the emergency department with any worsening signs or symptoms. Please utilize your at home medicine as currently prescribed. Please follow-up with your PCP and other providers in the upcoming days/weeks. Clinical Impressions Clinical Impression: Fall, Left shoulder pain, Lower back pain Instructions Patient Instructions: Exercises to Help Prevent Falls, DI for Low Back Pain, DI for Shoulder Pain Print Language Print Language: Slovak Discharge ED Provider: Dana Yarbrough General Adult HPI General Chief complaint: Fall Stated complaint: AO 06/19, fell, inj back Time Seen by Provider: 06/21/25 15:54 Mode of Arrival: Ambulatory Source of Information: Patient Description of Symptoms (Recalled from ER Triage Doc. by RN): Patient states she tripped over a step stool about 0300 06/20/25 and injured her neck, left shoulder and left ribs. Patient states she takes Percocet 7.5 QID and last took at [id number] today. History of Present Illness HPI narrative: 64-year-old female presents the emergency department with a fall that occurred 2 days ago, describes as a mechanical fall, patient states that she tripped over a stool , denies any presyncopal or syncopal neck, denies any LOC, distracted left side of her head, left shoulder, left lower back, patient denies any fever chills chest pain shortness of breath, denies any anticoagulant use, does admit to a cough for 1 week, denies any overt chest pain denies any shortness of breath, denies any recent sick contacts, denies any nausea vomiting constipation diarrhea, denies any abdominal pain, denies any urinary type symptomatology, d enies any saddle anesthesia, denies any urinary bladder or bowel dysfunction, denies any radicular type symptomatology, denies any numbness or tingling. Denies any alcohol use, admits to former tobacco use, and current marijuana use, other past medical history is consistent with scoliosis, degenerative disc disease of spine, COPD, GLADIS, hypertension, osteoarthritis, bipolar 1 disorder, MDD/LASHA, chronic opioid use on Percocet 4 times daily, fibromyalgia, hypothyroidism, PTSD. Initial triage vitals unremarkable. Of note patient denies any other upper or lower extremity injury, did take some of her at home Percocet today around 12 for her pain. Please note that above description of symptoms, in this electronic medical record under categorization of recalled from ER triage doctor by RN are reflective of an initial nursing assessment, however, is not reflective of my full history and physical exam that was personally taken and clarified. Consequentially, this preceding description of symptoms, which may include the patient's categorized chief complaint in the EMR, do not reflect my personal clinical impression, and the ultimate description of history of present illness and patient stated complaints should be deferred to this section of the note. Unless stated otherwise or congruent with this section of the note, additional signs, symptoms, or incongruence should be interpreted as inaccurate with my clinical impression. Onset (ago): day(s) Related Data Home Medications ?Medication ?Instructions ?Recorded ?Confirmed oxycodone-acetaminophen 7.5 mg-325 1 tab PO TID 05/09/25 mg tablet tizanidine 4 mg tablet 4 mg PO Q8H 01/05/25 5 fenofibrate nanocrystallized 145 145 mg PO DAILY 01/2905/09/25 mg tablet valacyclovir 1 gram tablet 1,000 mg PO DAILY PRN herpe s 01/29/25 05/09/25 (Valtrex) venlafaxine 150 mg 150 mg PO DAILY 01/29/2506/23 capsule,extended release 24 hr lidocaine 4 % topical patch patch topical 05/02/2506/23 Previous Rx's ?Medication ?Instructions ?Recorded polyethylene glycol 3350 17 17 g PO DAILY #510 grams 1 gram/dose oral powder (Miralax) guaifenesin 600 mg tablet, 600 mg PO DAILY #90 tabs extended release 12 hr ondansetron 4 mg disintegrating 4 mg PO Q8H PRN nausea and 01/20/25 tablet vomiting 5 days #10 tabs naloxone 4 mg/actuation nasal 4 mg intranasal Q3M PRN opioid 02/06/25 spray (Narcan) overdose #2 ea hydrochlorothiazide 12.5 mg tablet See Rx Instructions .Route 02/08/25 .COMPLEX #30 tabs sennosides 8.6 mg tablet (senna) 8.6 mg PO .COMPLEX VT N 04/18/25 constipation #30 ea albuterol sulfate 90 mcg/actuation 2 puff inhalation Q 6H PRN 05/02/25 aerosol inhaler (Ventolin HFA) shortness of breath or wheezing #8.5 grams bupropion HCl 300 mg 24 hr tablet, See Rx Instructions .Route 05/15/25 extended release .COMPLEX #30 tabs levothyroxine 50 mcg tablet See Rx Instructions .Route 05/15/25 .COMPLEX #90 tabs methocarbamol 750 mg tablet 750 mg PO HS #10 tabs 05/31 11/21 Allergies Allergy/AdvReac Type Severity Reaction Status Date / Time loratadine Allergy Mild Agression Verified 05/09/25 13:13 calamine Allergy Rash Verified 05/09/25 13:13 meloxicam (From Mobic) Allergy RESTLESS Verified 05/09/25 13:13 LEGS, NAUSEA Corticosteroids AdvReac Intermediate AGGRESION Verified 06/21/25 16:17 (Glucocorticoids) (steroids) Antihistamines - Alkylamine AdvReac Mild MANIC Verified 05/09/25 13:13 aripiprazole (From Abilify) AdvReac Mild AGRESSION Verified 05/09/25 13:13 bacitracin (From Neosporin AdvReac Mild MORE RED, Verified 05/09/25 13:13 ([id number])) IRRITATED brexpiprazole (From Rexulti) AdvReac Mild AGRESSIVE Verified 05/09/25 13:13 buspirone (From BuSpar) AdvReac Mild AGRESSIVE Verified 05/09/25 13:13 cariprazine (From Vraylar) AdvReac Mild HIGH ENERGY Verified 05/09/25 13:13 celecoxib (From Celebrex) AdvReac Mild Headache Verified 05/09/25 13:13 chlordiazepoxide (From AdvReac Mild SHAKES Verified 05/09/25 13:13 Librium) chlorpromazine (From AdvReac Mild MANIC Verified 05/09/25 13:13 Thorazine) clomipramine (From Anafranil) AdvReac Mild RLS Verified 05/09/25 13:13 clonazepam (From Klonopin) AdvReac Mild HIGH ENERGY Verified 05/09/25 13:13 codeine AdvReac Mild Anaphylaxis Verified 05/09/25 13:13 cyclobenzaprine (From AdvReac Mild RLS Verified 05/09/25 13:13 Flexeril) desipramine (From Norpramin) AdvReac Mild RLS Verified 05/09/25 13:13 desvenlafaxine (From Pristiq) AdvReac Mild AGRESIVE Verified 05/09/25 13:13 dexmedetomidine AdvReac Mild RLS Verified 05/09/25 13:13 divalproex sodium (From AdvReac Mild HEADACHE, Verified 05/09/25 13:13 Depakote) SWELLING duloxetine (From Cymbalta) AdvReac Mild AGRESSIVE Verified 05/09/25 13:13 eszopiclone (From Lunesta) AdvReac Mild NOT Verified 05/09/25 13:13 AFFECTIVE fluoxetine (From Prozac) AdvReac Mild MANIC Verified 05/09/25 13:13 hydrocodone (From Vicodin) AdvReac Mild ITCHING Verified 05/09/25 13:13 ibuprofen AdvReac Mild RLS Verified 05/09/25 13:13 lorazepam (From Ativan) AdvReac Mild RLS Verified 05/09/25 13:13 lurasidone (From Latuda) AdvReac Mild HYPER Verified 05/09/25 13:13 meperidine (From Demerol) AdvReac Mild RLS Verified 05/09/25 13:13 mirtazapine (From Remeron) AdvReac Mild RLS Verified 05/09/25 13:13 morphine AdvReac Mild Anaphylaxis Verified 05/09/25 13:13 neomycin (From Neosporin AdvReac Mild REDNESS Verified 05/09/25 13:13 ([id number])) paroxetine (From Paxil) AdvReac Mild RLS Verified 05/09/25 13:13 perphenazine (From Trilafon) AdvReac Mild RLS Verified 05/09/25 13:13 polymyxin B (From Neosporin AdvReac Mild REDNESS Verified 05/09/25 13:13 ([id number])) propranolol (From Inderal [place]) AdvReac Mild RLS Verified 05/09/25 13:13 quetiapine (From Seroquel) AdvReac Mild MANIC Verified 05/09/25 13:13 risperidone (From Risperdal) AdvReac Mild AGRESSIVE Verified 05/09/25 13:13 temazepam (From Restoril) AdvReac Mild HYPER Verified 05/09/25 13:13 topiramate (From Topamax) AdvReac Mild RLS Verified 05/09/25 13:13 tramadol (From Ultram) AdvReac Mild HYPER Verified 05/09/25 13:13 vortioxetine (From AdvReac Mild HYPER Verified 05/09/25 13:13 Trintellix) ziprasidone (From Geodon) AdvReac Mild HYPER Verified 05/09/25 13:13 zolpidem (From Ambien) AdvReac Mild HYPER Verified 05/09/25 13:13 acetaminophen (From Vicodin) AdvReac Hallucinati Verified 05/09/25 13:13 [facility] Disclaimer: The information contained in this section may have been updated after the patient was seen, as this information can be updated by other users. Medical History Homicidal ideation Suicidal ideation History of anoxic brain injury Apparently associated with amitriptyline overdose in 1993, details unknown Stroke Postmenopausal bleeding Constipation Constipation Low back pain Herpes genitalis in women Falls Hx of falls related to CVA weakness, drop foot Imbalance Reports intermittent imbalance throughout her life span, multiple falls, some with injuries History of cocaine use Younger days Peroneal tendinitis, left leg Left-sided weakness History of stroke Apparently associated with amitriptyline overdose in 1993, details unknown Primary osteoarthritis of right knee Acute pain of right knee Left foot pain Patient new to facility Asthma Dyspnea on exertion History of multiple strokes Frequent falls Hyperlipemia Sjogrens syndrome Muscle spasm [place]stonia Surgical History History of foot surgery History of left oophorectomy History of endometrial ablation H/O cervical spine surgery H/O hernia repair History of tonsillectomy Hx of appendectomy History of cholecystectomy History of arthroplasty of left ankle Family History Other Cancer Coronary artery disease Diabetes FHx: mental illness Hypertension Substance abuse Thyroid disorder Social History Smoking Status: Never smoker alcohol intake: former substance use type: denies use, former substance user, marijuana, crack/cocaine, opiates and prescription drug current occupational status: disabled Travel in the last 8 weeks?: None household members: significant other housing: house marital status: Have you lived/traveled outside [place] in past 30 days?: No Contact w/someone who lives/traveled outside US past 30 days?: No Exposure to someone with infectious disease in past 14 days?: No Do you have a fever (greater than 100.4 F or 38 C)?: No Have you tested positive for COVID-19?: No Exposed to someone with COVID-19 in past 14 days?: No Do you have a sore throat?: No Do you have a cough?: No Do you have any weakness?: No Do you have any diarrhea?: No Are you experiencing any unusual bleeding?: No Do you have any muscle aches/pain?: Yes Do you have any abdominal pain?: No Are you experiencing loss of taste or smell?: No Other Medical History Have you received the Flu Vaccine for this season: No Have you received the Pneumonia Vaccine: Yes ROS Obtained: Yes All systems reviewed & no additional complaints except as documented Physical Exam General General appearance: alert and in no apparent distress Head Head exam: atraumatic and normocephalic Eye Eye exam: Present PERRL and EOMI ENT ENT exam: Present mucous membranes moist Neck Neck exam: Present normal inspection Chest Chest inspection: Present normal inspection and symmetric chest wall rise; Absent tenderness Respiratory Respiratory exam: Present normal lung sounds bilaterally; Absent respiratory distress Cardiovascular Cardiovascular exam: Present regular rate and normal rhythm Abdominal Exam Abdominal exam: Present soft; Absent tenderness Extremities Exam Extremities exam: Present normal inspection, full ROM, tenderness and other (Mild pain palpation to the left shoulder, good strength, no other pain palpation to the bilateral lower and upper extremities, otherwise neurovasc intact) Back Exam Back exam: Present normal inspection, full ROM, tenderness and paraspinal tenderness; Absent vertebral tenderness Comment: There is mild paraspinal tenderness palpation to the left lower lumbar spine, negative C-spine vertebral tenderness negative T-spine vertebral tenderness, negative L-spine vertebral tenderness, negative paraspinal tenderness palpation of thoracic back, paraspinal tenderness to the cervical spine on the left Neurological Exam Neurological exam: Present alert, oriented X3 and other (5 out of 5 strength in the bilateral lower and upper extremities, moves extremities to command, no gross sensation deficit) Psychiatric Psychiatric exam: Present normal affect Skin Skin exam: Present warm and dry Medical Decision Making Medical Records Medical records reviewed: Yes I reviewed the patient's medical records. Screening: Per USPSTF and CDC recommendations, given the prevalence of disease in our region, it is our hospital?s policy to screen for HIV and viral Hepatitis for all patients aged 18 and over and those with ongoing risk factors. [place] Inquiry Pt receiving controlled substance: No [place] was queried for this patient: No Vital Signs: 06/21/25 15:42 06/21/25 15:50 06/21/25 16:00 Temperature 98.1 F Temperature Source Oral Pulse Rate 81 85 Pulse Rate [Right Brachial] 88 Respiratory Rate 16 Blood Pressure 157/90 H 166/99 H Blood Pressure [Right Arm] 170/85 H Blood Pressure Mean [Right Arm] 113 Blood Pressure Source [Right Arm] Automatic Cuff Blood Pressure Position [Right Arm] Sitting 02 Sat by Pulse Oximetry 99 98 100 Oxygen Delivery Method Room Air Room Air Room Air 06/21/25 16:10 Temperature Temperature Source Pulse Rate 80 Pulse Rate [Right Brachial] Respiratory Rate Blood Pressure 147/108 H Blood Pressure [Right Arm] Blood Pressure Mean [Right Arm] Blood Pressure Source [Right Arm] Blood Pressure Position [Right Arm] 02 Sat by Pulse Oximetry 98 Oxygen Delivery Method Room Air Orders (Tests/Meds): ED MEDICATIONS Discontinued Medications Generic Name Dose Route Start Last Admin Trade Name Freq PRN Reason Stop Dose Admin Methocarbamol 750 mg 06/21/25 16:11 06/21/25 16:28 Methocarbamol 500mg Tablet PO 06/21/25 16:12 750 mg ONCE ONE Administration ORDERS Category Date Time Status CT cervical spine wo con Stat Cat Scan 06/21/25 16:[address] head/brain wo con Stat Cat Scan 06/21/25 16:[address] lumbar spine wo con Stat Cat Scan 06/21/25 16:09 Completed XR chest portable Stat Exams 06/21/25 16:10 Completed XR shoulder LT min 2V Stat Exams 06/21/25 16:10 Completed Medical Decision Narrative: 64-year-old female presents emergency department with a remote fall 2 days ago, describes as mechanical fall complaining of neck pain lower back pain on the left and left shoulder pain, differential diagnosis include but not limited to acute shoulder impingement syndrome, shoulder fracture, shoulder sprain/strain, cervicalgia, C-spine spine fracture, L-spine fracture, acute lumbar sacral strain, other soft tissue injury, contusion among others. I discussed this patient's case with attending physician Will obtain CT cervical spine without contrast, CT head without contrast, CT lumbar spine without contrast, CXR, left shoulder x-ray and 750 mg p.o. methocarbamol be given for symptomatic relief. I reviewed the patient's CT lumbar spine without contrast along the corresponding radiologic report, reconstructions are with a bone algorithm with relatively poor sensitivity for soft tissue pathology, left convex spinal curvature observed at thoracolumbar junction with mild right convexity and lower lumbar spine there is a small Schmorl's node superior endplate L1 with somewhat larger lesion at superior L2 with no section of these are acute there is no evidence of acute fracture. I reviewed the patient's left shoulder x-ray along the corresponding radiologic report, sclerosis of the acromion and focal cupping greater tuberosity or suspicious for impingement there is moderate glenohumeral disease, there is no interval change comparison study no evidence of any acute fracture or dislocation. I reviewed the patient's chest x-ray along with corresponding radiologic report, no evidence of any acute chest abnormality. I reviewed the patient's CT cervical spine without contrast on the corresponding radiologic report, no acute fracture traumatic subluxation I reviewed the patient's CT head without contrast along with corresponding radiologic report no evidence for acute transcortical infarction acute intracranial hemorrhage or mass effect. I discussed the results with the patient at the bedside, patient states the muscle relaxer did help some of her symptomatology. Will prescribe methocarbamol 750 mg p.o. as needed for symptomatic relief, patient can take her at home medication as needed for symptomatic relief. Patient voiced understanding and agreement with her current treatment plan/discharge plan. Patient follow-up PCP in the provided in the coming days. Strict return precautions given. Critical Care Critical Care Time Critical Care Time: No
[2025-06-21 16:00] VITALS: BP 166/99; PULSE 85; O2SAT 100
--- NOTE | 2025-06-21 16:09 | CT_ITS ---
PROCEDURE INFORMATION: Exam: CT Head Without Contrast Exam date and time: 06/21/2025 4:18 PM Age: 64 years old Clinical indication: Injury or trauma; Fall; Blunt trauma (contusions or hematomas); Additional info: Fall 2 days ago struck head TECHNIQUE: Imaging protocol: Computed tomography of the head without contrast. Radiation optimization: All CT scans at this facility use at least one of these dose optimization techniques: automated exposure control; mA and/or kV adjustment per patient size (includes targeted exams where dose is matched to clinical indication); or iterative reconstruction. COMPARISON: MR HEAD/BRAIN WO/W CON 10/03/2024 3:52 PM FINDINGS: Brain: Diffuse cortical atrophy, advanced for patient's age. chronic microvascular ischemic disease. No evidence for acute transcortical infarct. No mass effect or midline shift. No extra-axial collection. No acute intracranial hemorrhage. Basal cisterns are patent. Cerebral ventricles: No ventriculomegaly. Paranasal sinuses: Visualized sinuses are unremarkable. No fluid levels. Mastoid air cells: Visualized mastoid air cells are well aerated. Bones: Unremarkable. No acute fracture. Soft tissues: Unremarkable. IMPRESSION: No evidence for acute transcortical infarct, acute intracranial hemorrhage, or mass effect.
--- NOTE | 2025-06-21 16:09 | CT_ITS ---
PROCEDURE INFORMATION: Exam: CT Cervical Spine Without Contrast Exam date and time: 06/21/2025 4:21 PM Age: 64 years old Clinical indication: Neck pain; Additional info: Fall TECHNIQUE: Imaging protocol: Computed tomography of the cervical spine without contrast. Radiation optimization: All CT scans at this facility use at least one of these dose optimization techniques: automated exposure control; mA and/or kV adjustment per patient size (includes targeted exams where dose is matched to clinical indication); or iterative reconstruction. COMPARISON: CT CERVICAL SPINE WO CON 06/21/2025 4:21 PM FINDINGS: Bones: No acute fracture or traumatic subluxation. No spondylolisthesis. The atlantooccipital and atlantoaxial articulations are intact. Occipital condyles are intact. Facet joint alignments are maintained. Age-related degenerative disc disease. Multilevel degenerative changes of the cervical spine. Lungs: Lung apices are normal. Soft tissues: No prevertebral soft tissue swelling. IMPRESSION: No acute fracture or traumatic subluxation.
--- NOTE | 2025-06-21 16:09 | CT_ITS ---
PROCEDURE INFORMATION: Exam: CT Lumbar Spine Without Contrast Exam date and time: 06/21/2025 4:24 PM Age: 64 years old Clinical indication: Low back pain; Additional info: Fall fall 2 days ago, low back pain TECHNIQUE: Imaging protocol: Computed tomography of the lumbar spine without contrast. Radiation optimization: All CT scans at this facility use at least one of these dose optimization techniques: automated exposure control; mA and/or kV adjustment per patient size (includes targeted exams where dose is matched to clinical indication); or iterative reconstruction. COMPARISON: CT LUMBAR SPINE WO CON 09/10/2023 9:54 PM FINDINGS: Limitations: Reconstructions are with a bone algorithm with relatively poor sensitivity for soft tissue pathology. Bones/joints: A left convex spinal curvature is observed at the thoracolumbar junction with a mild right convexity in the lower lumbar spine. There is a small Schmorl's node of the superior endplate of L1 with a somewhat larger lesion of superior L2 with no suggestion that these are acute.There is no evidence of an acute fracture. Soft tissues: Unremarkable. IMPRESSION: 1. Reconstructions are with a bone algorithm with relatively poor sensitivity for soft tissue pathology. 2. A left convex spinal curvature is observed at the thoracolumbar junction with a mild right convexity in the lower lumbar spine. 3. There is a small Schmorl's node of the superior endplate of L1 with a somewhat larger lesion of superior L2 with no suggestion that these are acute.There is no evidence of an acute fracture.
[2025-06-21 16:10] VITALS: BP 147/108; PULSE 80; O2SAT 98
--- NOTE | 2025-06-21 16:10 | XR_ITS ---
PROCEDURE INFORMATION: Exam: XR Left Shoulder Exam date and time: 06/21/2025 4:25 PM Age: 64 years old Clinical indication: Pain; Shoulder; Left; Additional info: Fall left shoulder pain TECHNIQUE: Imaging protocol: Radiologic exam of the left shoulder. Views: 2 or more views. COMPARISON: CR XR SHOULDER LT MIN 2V 05/04/2025 12:28 PM FINDINGS: Bones/joints: Sclerosis of acromion and focal cupping of the greater tuberosity are suspicious for impingement. There is moderate glenohumeral degenerative disease. There is no interval change from the comparison study. There is no evidence of acute fracture or dislocation. Soft tissues: Normal. IMPRESSION: 1. Sclerosis of acromion and focal cupping of the greater tuberosity are suspicious for impingement. There is moderate glenohumeral degenerative disease. There is no interval change from the comparison study. 2. There is no evidence of acute fracture or dislocation.
--- NOTE | 2025-06-21 16:10 | XR_ITS ---
PROCEDURE INFORMATION: Exam: XR Chest Exam date and time: 06/21/2025 4:25 PM Age: 64 years old Clinical indication: Cough; Additional info: Fall, cough TECHNIQUE: Imaging protocol: Radiologic exam of the chest. Views: 1 view. COMPARISON: CR XR CHEST PORTABLE 01/31/2025 11:02 PM FINDINGS: Lungs: Unremarkable. No consolidation. Pleural spaces: Unremarkable. No pleural effusion. No pneumothorax. Heart/Mediastinum: Unremarkable. No cardiomegaly. Bones/joints: A left convex spinal curvature is observed at the thoracolumbar junction. IMPRESSION: No evidence of an acute chest abnormality.
[2025-06-21] MEDS: METHOCARBAMOL 500MG TABLET 750 MG PO (16:28)
[2025-06-21 17:15] VITALS: BP 147/99; PULSE 76; RESP 16; TEMP 36.8; O2SAT 99
== END 2025-06-21 17:19 | disposition home or self-care (01) ==
PROVIDERS: Emergency Provider Student in an Organized Health Care Education/Training Program; PCP Nurse Practitioner Family
DX: M25.512 Pain in left shoulder (principal); M54.50 Low back pain, unspecified; W01.10XA Fall on same level from slipping, tripping and stumbling with subsequent striking against unspecified object, initial encounter
CPT/HCPCS: 70450; 71045; 72125; 72131; 73030; 99284; 99285

== ENCOUNTER 2025-06-25 11:00 | Outpatient (RCR) | payer MEDICARE, MEDICAID, SELFPAY | END 2025-06-25 23:59 | disposition home or self-care (01) | LOC: OT 11:00 | PROVIDERS: Visit Provider Physician Assistant | DX: M25.512 Pain in left shoulder (principal) | CPT/HCPCS: 97032; 97140; 97530 ==

== ENCOUNTER 2025-07-10 07:53 | Emergency (ER) | payer MEDICARE, MEDICAID, SELFPAY ==
--- OUTSIDE RECORDS SUMMARY | 2018-01-11 18:54 | XMS_ITS | Encounter Summary ---
Author Organization [facility] Address [address] [place] [address] Care Team Providers Care Tablet Tester Name Role Phone Kamlesh Abdullahi MD Primary Care Provider [phone] Reason for Referral * Hospital - Outpatient (Routine) - Closed Specialty Diagnoses / Procedures Referred By Patricia neri Referred To Contact Sleep Medicine Diagnoses Obstructive sleep apnea Snoring Excessive daytime sleepiness Sleep talking Procedures Polysomnography 4 or More Parameters Amanuel Elizalde MD [address] [place] [address] 3 [place] [address] Phone: tel: fax: [facility] [address] [place] [address] Phone: tel: Referral ID Status Reason Start Date Expiration Date Visits Re quested Visits Authorized [id number] Closed 12/07/2017 01/11/2018 1 1 Reason for Visit * Hospital - Outpatient (Routine) - Closed Specialty Diagnoses / Procedures Referred By Patricia neri Referred To Contact Sleep Medicine Diagnoses Obstructive sleep apnea Snoring Excessive daytime sleepiness Sleep talking Procedures Polysomnography 4 or More Parameters Amanuel Elizalde MD 793 [facility] [address] [address] Phone: tel: fax: [facility] [address] [place] [address] Phone: tel: Referral ID Status Reason Start Date Expiration Date Visits Re quested Visits Authorized [id number] Closed 12/07/2017 01/11/2018 1 1 Encounter Details Date Type Department Care Team (Latest Contact Info) Description 01/11/2018 7:54 PM EDT Hospital Encounter [facility] [address] [place] [address] Amanuel Elizalde MD 793 [facility] [address] [place] [address] Obstructive sleep apnea; Snoring; Excessive daytime sleepiness; Sleep talking Social History Tobacco Use Types Packs/Day Years Used Date Smoking Tobacco: Former Cigarettes 1 2 0 09/05/1973 - 09/05/1975 Smokeless Tobacco: Never Alcohol Use Standard Drinks/Week Comments Yes 0 (1 standard drink = 0.6 oz pur e alcohol) occassional drinker h/o abuse PHQ-2 Answer Date Recorded Retired PHQ-9: Brief Depression Severity Measure Score 18 05/27/2023 Abuse Screen Answer Date Recorded Feels Unsafe at Home or Work/School no 07/07/2023 Feels Threatened by Someone no 03/2023 Does Anyone Try to Keep You From Having Contact with Others or Doing Things Outside Your Home? no 07/07/2023 Physical Signs of Abuse Present no 07/07/2023 Housing Stability Answer Date Recorded Current Living Arrangements Not on file 04/2023 Potentially Unsafe Housing Conditions Not on palmer e 06/07/2023 Family and Community Support Answer Clarence e Recorded Help with Day-to-Day Activities Not on file 06/07/2023 Lonely or Isolated Not on file 06/07/2023 Employment Answer Date Recorded Do you want help finding or keeping work or a faraz b? Not on file 06/07/2023 Disabilities Answer Date Recorded Concentrating, Remembering, or Making Decisions Difficulty Not on file 06/07/2023 Doing Errands Independently Difficulty Not on fi le 06/07/2023 Education Answer Date Recorded Help with school or training? Not on file Preferred Language Not on file 06/07/2023 PHQ-2 Answer Date Recorded Retired PHQ-9: Brief Depression Severity Measure Score 18 05/27/2023 Comments No Sex and Gender Information Value Date Recorded Sex Assigned at Not on file Legal Sex Female 10:18 AM EDT Gender Identity Not on file Sexual Orientation Not on file documented as of this encounter Plan of Treatment Not on file documented as of this encounter Procedures Procedure Name Priority Date/Time Associated Diagnosis Comments NPSG Routine 01/12/2018 5:12 AM EDT Obstructive sleep apnea Snoring Excessive daytime sleepiness Sleep talking documented in this encounter Results * NPSG (01/12/2018 5:12 AM EDT) Narrative Amanuel Elizalde MD - 01/12/2018 4:15 PM EDT [facility] Pulmonary, Critical Care, and Sleep Medicine Amanuel Elizalde M.D. 793 [facility] [address] Medical Office [facility] # 3[place] [id number]. POLYSOMNOGRAPHY INTERPRETATION Date of Study: 01/11/2018 Patient Name: Diamond Damon Date of : 1960 Study ordered by: ? Dr. Elizalde. Diagnosis after study: ? No significant obstructive sleep apnea Impression: ? This study reveals no sleep apnea with an AHI of 4.6/hour. ? The GLADIS was worse in REM sleep. The AHI in REM was 7 vs. 2.2 in non-REM sleep ? The GLADIS was positional - Supine AHI - 5 events/hr. Side AHI - 3.05 events/hr. ? Arousal index of 16/hour, was noted. Recommendations: ? Sleep hygiene measures should be counseled to the patient. ? She will need to discuss the possibility of medication related effect/side effects and may be causing her symptoms, especially given the fact that her AHI was less than 5 per hour. ? It should be noted that the sleep apnea is not severe on this study whereas the patient's drowsiness is significant. Possible explanations for this include: a) GLADIS can vary significantly from night to night. It is possible that we happened to monitor a night that was less severe than most. b) The patient has a co-existing sleep disorder such as Narcolepsy, CHEMICAL STRENGTH TESTER Hypersomnolence or Insufficient Sleep Syndrome. To sort out these possibilities further sleep studies and an MSLT may be necessary depending on the her symptoms. Follow up: ? Patient will need to follow up in 2-10 weeks with one of the providers in this office. Clinical Information: The patient is 57 y.o. with the following GLADIS symptoms: daytime fatigue/drowsiness & frequent nocturnal awakenings. Other conditions may affect treatment decisions. This includes h/o ? CVA. Please feel free to contact the office of [facility] Pulmonary, Critical Care and Sleep Medicine at [phone], if you have any questions. Best regards, This document was electronically signed by Amanuel Elizalde MD January 12, 2018 4:11 PM Procedure Note Amanuel Elizalde MD - 01/12/2018 [facility] Pulmonary, Critical Care, and Sleep Medicine Amanuel Elizalde M.D. 793 [facility] [address] Medical Office Building # [address] [id number]. POLYSOMNOGRAPHY INTERPRETATION Date of Study: 01/11/2018 Patient Name: Diamond Damon Date of : 1960 Study ordered by: Dr. Elizalde. Diagnosis after study: No significant obstructive sleep apnea Impression: This study reveals no sleep apnea with an AHI of 4.6/hour. The GLADIS was worse in REM sleep. The AHI in REM was 7 vs. 2.2 in non-REMsleep The GLADIS was positional - Supine AHI - 5 events/hr. Side AHI - 3.05events/hr. Arousal index of 16/hour, was noted. Recommendations: Sleep hygiene measures should be counseled to the patient. She will need to discuss the possibility of medication relatedeffect/side effects and may be causing her symptoms, especially given thefact that her AHI was less than 5 per hour. It should be noted that the sleep apnea is not severe on this studywhereas the patient's drowsiness is significant. Possible explanations forthis include: a) GLADIS can vary significantly from night to night. It is possiblethat we happened to monitor a night that was less severe than most. b) The patient has a co-existing sleep disorder such asNarcolepsy, CHEMICAL STRENGTH TESTER Hypersomnolence or Insufficient Sleep Syndrome. To sort out these possibilities further sleep studies and anMSLT may be necessary depending on the her symptoms. Follow up: Patient will need to follow up in 2-10 weeks with one of the providersin this office. Clinical Information: The patient is 57 y.o. with the following GLADIS symptoms: daytimefatigue/drowsiness & frequent nocturnal awakenings. Other conditions mayaffect treatment decisions. This includes h/o ? CVA. Please feel free [facility] at [phone], if you haveany questions. Best regards, This document was electronically signed by Amanuel Elizalde MD January 12, 20184:11 PM us Amanuel Elizalde MD [facility] ORDERABLES Mi l Result documented in this encounter Visit Diagnoses Diagnosis Obstructive sleep apnea Obstructive sleep apnea (adult) (pediatric) Snoring Other dyspnea and respiratory abnormality Excessive daytime sleepiness Sleep talking Other dysfunctions of sleep stages or arousal from sleep documented in this encounter Additional Health Concerns Infection Onset Date Last Indicated Resolved Time COVID (confirmed) 04/16/2020 04/16/2020 03/11/2021 12:50 PM EDT COVID (rule out) 04/16/2020 04/16/2020 04/17/2020 3:38 PM EDT COVID (History) 03/11/2021 03/11/2021 COVID (rule out) 04/21/2022 04/21/2022 04/22/2022 8:27 PM EDT COVID (confirmed) 04/21/2022 04/21/2022 07/20/2022 9:08 PM EST Influenza 07/01/2022 07/01/2022 07/31/2022 9:08 PM EST documented as of this encounter Care Teams Tablet Tester Relationship Specialty Start Date End Date Kamlesh Abdullahi MD [address] [place] [address] PCP - General Internal Medicine 06/21/17 01/15/19 documented as of this encounter
--- OUTSIDE RECORDS SUMMARY | 2018-03-10 11:00 | XMS_ITS | Encounter Summary ---
[facility] [address] [place] [address] Care Team Providers Care Microwave Supervisor Name Role Phone Kamlesh Abdullahi MD Primary Care Provider [phone] Reason for Visit * Hospital - Outpatient (Routine) - Closed Specialty Diagnoses / Procedures Referred By Patricia neri Referred To Contact Sleep Medicine Diagnoses Dystonia Partial symptomatic epilepsy with complex partial seizures, not intractable, without status epilepticus Procedures EEG EEG Awake or Asleep Routine Regan Bruno MD Phone: tel: fax: [facility] [address] [place] [address] Phone: tel: Referral ID Status Reason Start Date Expiration Date Visits Re quested Visits Authorized [id number] Closed 02/28/2018 02/28/2019 1 1 Encounter Details Date Type Department Care Team (Latest Contact Info) Description 03/10/2018 12:00 PM EDT Hospital Encounter [facility] [address] [place] [address] Regan Bruno MD [address] [place] [address] Dystonia; Partial symptomatic epilepsy with complex partial [...] documented as of this encounter Care Teams Microwave Supervisor Relationship Specialty Start Date End Date Kamlesh Abdullahi MD [address] [place], [place] [phone] PCP - General Internal Medicine 06/21/17 01/15/19 documented as of this encounter
--- OUTSIDE RECORDS SUMMARY | 2024-09-26 04:15 | XMS_ITS ---
Author Organization [facility] Address [address] [place] [address] Care Team Providers Care Lasting Machine Operator Bed Name Role Phone ClauszainRed rush II Unavailable [phone] Jaelyn Guerrero Unavailable Unavailable Freeman Albarran Unavailable [phone] Allergies Allergen (clinical drug ingredient) Drug/Non Drug [...] Drug Allergy Act sheldon REASON FOR VISIT 2 Month Follow Up Medications Medication SIG (Take, Route, Frequency, Duration) Notes Start Date End Date Status acyclovir 400 mg 1 tab(s) orally 2 ti mes a day 10/29/2022 Active venlafaxine 150 mg 1 cap(s) orally once a day; Duration: 30 day(s) 10/29/2022 Active Meclizine 25 mg 1 tab Oral tid prn; Duration: 15 days 10/29/2022 Active buPROPion 150 mg/12 hours 1 tab(s) orall y 2 times a day; Duration: 30 day(s) 10/29/2022 Active fenofibrate 145 mg 1 tab(s) orally once a day; Duration: 30 day(s) 10/29/2022 Active diazePAM 5 mg 1 tab(s) orally 3 ti mes a day 09/30/2021 Active tiZANidine 4 mg 1 tab(s) orally ever y 8 hours; Duration: 30 day(s) 09/30/2021 Activ e acetaminophen-oxycodone 325 mg-7.5 mg 1 tab(s) orally 3 times a day; Duration: 28 day(s) Active SUMAtriptan 6 mg/0.5 mL as directed subc utaneously once 10/29/2022 Active benzonatate 100 mg 1 cap(s) orally 3 ti mes a day; Duration: 5 day(s) 10/20/2022 Active acetaminophen-oxycodone 325 mg-7.5 mg 1 tab(s) orally 3 times a day; Duration: 28 day(s) Active Social History Alcohol Screen Question Answer Notes Did you have a drink contain ing alcohol in the past year? Yes How often did you have a dri nk containing alcohol in the past year? 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 f/u 2 months [id number] - Patient with chronic LBP with radicular [...] validate a good response prior to implant. 29SNC29 - Patient presents today to discuss further [...] assessment for her back and radicular pain. 09/26/2024 lumbar spondylosis (ICD-10 - M47.816) 11/29/23 Ms. Louie returns today for office [...] risk assessment is low. f/u 2 months 85KIL67 - Patient with chronic LBP with radicular [...] validate a good response prior to implant. 11NCM47 - Patient presents today to discuss further [...] assessment for her back and radicular pain. 09/26/2024 cervical spondylosis (ICD-10 - M47.812) 11/29/23 Ms. [...] risk assessment is low. f/u 2 months 45MFQ66 - Patient with chronic LBP with radicular [...] validate a good response prior to implant. 38EOS90 - Patient presents today to discuss further [...] assessment for her back and radicular pain. 09/26/2024 Postlaminectomy syndrome, not elsewhere classified (ICD-10 - [...] risk assessment is low. f/u 2 months 25ECR73 - Patient with chronic LBP with radicular [...] validate a good response prior to implant. 99YCB03 - Patient presents today to discuss further [...] assessment for her back and radicular pain. 09/26/2024 Complex regional pain syndrome I of right [...] risk assessment is low. f/u 2 months 93TAV91 - Patient with chronic LBP with radicular [...] validate a good response prior to implant. 19OTF35 - Patient presents today to discuss further [...] 28 day(s) Treatment Notes Assessment Notes Other tank terminal gauger (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 July 24, 2024 1. Refill Percocet 7.5/325mg TID 2. Refer patient to NS. 3. Follow up in 2 months Pending Test Test Name Order Date Urine Test ANALYZER 09/26/2024 Next Appt Details Follow Up: 2 Months, Reason: Provider Name:Red cooney, 08/31/2025 02:45:00 PM, [address], [address], [place], [address], Progress Notes * Diamond LOUIEDOB: [birth year] (64 yo F)Acc No.[id number]:09/26/2024 FollowUP Patient: Diamond JUAREZ Provider: Humera Albarran MD :1960 A ge:63 Y S ex:Female Date:09/26/2024 Address:[address] [place] [address] LEÓN Gómez [id number] Subjective: * Chief Complaints: * 1 . 2 Month Follow Up. * HPI: T ODAYS PAIN EVALUATION: 63 [...] of a left asymmetric disc bulge producing kiamtqjk-yy-ruebww left neuroforaminal stenosis and subarticular recess narrowing. [...] with no relief A shira Therapy- At [facility] 1994 which helped after her stroke [...] a nxiety diagnosed managed by Jaelyn Renteria ACTUARIAL TECHNICIAN , [facility] , bipolar disorder diagnosed 1993 [facility] , COPD diagnosed 1979 [facility] , fibromyalgia diagnosed 1989 [facility] TE[facility] , depression diagnosed [facility] ACTUARIAL TECHNICIAN , seizures diagnosed 2016 [facility] ACTU[facility] TECH[facility]ICIAN , Stroke diagnosed 1993 [facility] ACTU[facility] TECH[facility]ICIAN , Hypothyroidism diagnosed 1979 [facility] ACT[facility]IAL TECH[facility]ICIAN , scoliosis diagnosed 1979 [facility] TECH[facility]IC[facility] , Degenerative disc disease diagnosed 1999 [facility] . * Surgical History: L eft ankle surgery x2/ [facility] / with a 3 day stay 1999, Appendectomy/ [facility] / overnight stay 2003, Cholecystectomy/ [facility] / overnight stay 2002, LT Hand Surgery x2/ [facility] / with a 3 day stay 1976, Neck (cervical discetomy)Dr. Marc/ [facility] / over night stay 2004, RT Shoulder / [facility] / (OP) 1981, Tonsillectomy/ [facility] / (OP) 1965, Tubal abdominal ligation / in [place] / (OP) 1981, Bladder lift / [facility] / Dr. Alicia Crawford / (OP) 2005, Ovarien Cyst Rupture/ [facility] in [facility] / with a 3-4 day stay 1987, oophorectomy (left)/ [facility] / (OP) 2005, [place] teeth/ Dr. Hess / (OP) 1976, Hernia repair / [facility] / (OP) 03/14/2021. * Hospitalization/Major Diagno stic Procedure: B owel obstruction / / treated and released 02/2021. * Family [...] * Vitals: * Examination: G eneral Examination: Nurse/Automobile Contract Clerk: Obey Blackman (MA LEX) 07/24/2024 2:25:50 PM [...] . Assessment: * Assessment: 1. O ther tank terminal gauger (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 - Z79.899 (Primary) 2 [...] risk assessment is low. f/u 2 months 66SZV40 - Patient with chronic LBP with radicular [...] validate a good response prior to implant. 87HOB90 - Patient presents today to discuss further [...] 2 Months * * Electronic signature of Kj Albarran M.D. on 07/10/2025 at 07:10 AM REAL ESTATE COORDINATOR Sign off status: Pending * Provider: Humera Albarran MD Date: 0 09/26/2024 Generated for Bacilio anna/Sajan/Juan on: 09/09/2024 07:10 AM REAL ESTATE COORDINATOR History and Physical Notes * HPI (History [...] of a left asymmetric disc bulge producing dvbawrhu-wz-qzbzoa left neuroforaminal stenosis and subarticular recess narrowing. Far left lateral component encroaches upon and may abut or contact the exiting left L5 nerve root PHYSICAL/AQUA THERAPY/DME/OT HER HISTORY: Physical Therapy- 2018 with no relief Aqua Therapy- At [facility] 1994 which helped after her stroke [...] leads removed, tip intact. Sterile dressing applied Nurse/Automobile Contract Clerk: Xiomara Douglas (MA LEX) 07/24/2024 2:25:50 PM > Cervical Spine/Neck Vertebral [...]
--- OUTSIDE RECORDS SUMMARY | 2025-01-15 08:45 | XMS_ITS ---
Author Organization [facility] Address [address] [place] [address] Care Team Providers Care General Laborer Name Role Phone Red Tamayo II Unavailable Jaelyn Guerrero Unavailable Unavailable Allergies Allergen (clinical drug ingredient) Drug/Non Drug Allergy documented on EMR Reaction Allergy Type Onset Date Status carisoprodol Soma hives Drug Allergy Acti ve bacitracin / neomycin / polymyxin B Neosporin rash Drug Allergy Active hydromorphone Dilaudid hives Drug Allergy Act sheldon codeine codeine anaphylaxis Drug Allergy Activ e ibuprofen hives Drug Allergy Active methadone methadone stomach upset Drug Allergy Act sheldon diphenhydramine diphenhydramine hives Drug Allergy Active morphine morphine anaphylaxis Drug Allergy Activ e prednisone prednisone anaphylaxis Drug Allergy Act sheldon REASON FOR VISIT ITP Trial: Please ask Pt who to send NS consult to and if she is willing to have a new psych eval (prev exp'd 09/08/24) and if so, create referrals/orders for both., Neck pain, Low back pain, MARY shoulder pain Medications Medication SIG (Take, Route, Frequency, Duration) Notes Start Date End Date Status benzonatate 100 mg 1 cap(s) orally 3 ti mes a day; Duration: 5 day(s) 10/20/2022 Active diazePAM 5 mg 1 tab(s) orally 3 ti mes a day 09/30/2021 Active SUMAtriptan 6 mg/0.5 mL as directed subc utaneously once 10/29/2022 Active tiZANidine 4 mg 1 tab(s) orally ever y 8 hours; Duration: 30 day(s) 09/30/2021 Activ e TiZANidine Hydrochloride 4 mg 1 tab(s) orally every 8 hours; Duration: 30 day(s) Activ e buPROPion 150 mg/12 hours 1 tab(s) orall y 2 times a day; Duration: 30 day(s) 10/29/2022 Active acetaminophen-oxycodone 325 mg-7.5 mg 1 tab(s) orally 3 times a day; Duration: 28 day(s) Active fenofibrate 145 mg 1 tab(s) orally once a day; Duration: 30 day(s) 10/29/2022 Active Meclizine 25 mg 1 tab Oral tid prn; Duration: 15 days 10/29/2022 Active acetaminophen-oxycodone 325 mg-7.5 mg 1 tab(s) orally 3 times a day; Duration: 28 day(s) Active acyclovir 400 mg 1 tab(s) orally 2 ti mes a day 10/29/2022 Active venlafaxine 150 mg 1 cap(s) orally once a day; Duration: 30 day(s) 10/29/2022 Active Social History Alcohol Screen Question Answer Notes Did you have a drink contain ing alcohol in the past year? Yes How often did you have a dri nk containing alcohol in the past year? 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 Refer patient to NS.- waiting to reschedule appt. 3. Follow up in 2 months 4. refill tizanidine 4mg TID 11/20/2024 Ms. Louie returns today for office visit and medication refill. Patient with chronic LBP with radicular pain [...] significant benefit but with a different opioid. When discussing the medication for the ITP [...] assessment for her back and radicular pain. We are waiting for NS consult and until that time we will hold on ITP. Continue percocet 7.5mg TID. Denies any side effects. Johnathan and UDS reviewed. Meds refilled and f/u 2 months. 01/15/2025 lumbar spondylosis (ICD-10 - M47.816) 11/20/2024 Ms. Louie returns today for office visit and medication refill. Patient with chronic LBP with radicular pain [...] significant benefit but with a different opioid. When discussing the medication for the ITP [...] assessment for her back and radicular pain. We are waiting for NS consult and until that time we will hold on ITP. Continue percocet 7.5mg TID. Denies any side effects. Johnathan and AMISH reviewed. Meds refilled and f/u 2 months. 01/15/2025 cervical spondylosis (ICD-10 - M47.812) 11/20/2024 Ms. Louie returns today for office visit and medication refill. Patient with chronic LBP with radicular pain [...] significant benefit but with a different opioid. When discussing the medication for the ITP [...] assessment for her back and radicular pain. We are waiting for NS consult and until that time we will hold on ITP. Continue percocet 7.5mg TID. Denies any side effects. Johnathan and AMISH reviewed. Meds refilled and f/u 2 months. 01/15/2025 Postlaminectomy syndrome, not elsewhere classified (ICD-10 - M96.1) 11/20/2024 Ms. Louie returns today for office visit and medication refill. Patient with chronic LBP with radicular pain [...] significant benefit but with a different opioid. When discussing the medication for the ITP [...] assessment for her back and radicular pain. We are waiting for NS consult and until that time we will hold on ITP. Continue percocet 7.5mg TID. Denies any side effects. Johnathan and AMISH reviewed. Meds refilled and f/u 2 months. 01/15/2025 Complex regional pain syndrome I of right lower limb (ICD-10 - G90.521) 11/20/2024 Ms. Louie returns today for office visit and medication refill. Patient with chronic LBP with radicular pain [...] significant benefit but with a different opioid. When discussing the medication for the ITP [...] assessment for her back and radicular pain. We are waiting for NS consult and until that time we will hold on ITP. Continue percocet 7.5mg TID. Denies any side effects. Johnathan and MECHELLES reviewed. Meds refilled and f/u 2 months. 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 Refer patient to NS.- waiting to reschedule appt. 3. Follow up in 2 months 4. refill tizanidine 4mg TID Pending Test Test Name Order Date Urine Test ANALYZER 01/15/2025 Next Appt Details Follow Up: 2 Months, Reason: Provider Name:Red cooney, 08/31/2025 02:45:00 PM, [address], [place], [address], Procedure Notes * Category Sub-Category Detail Notes PROVIDER ENCOUNTER AND OVERSIGHT Consult Performed By: Cristina-Lotus MIRAMONTES 11/20/2024 2:58:33 PM > collaborated treatment plan with Red vallejo M.D., supervising physician who was present in office during consultation Progress Notes * Diamond LOUIEDOB: [birth year] (64 yo F)Acc No.[id number]:01/15/2025 FollowUP Patient: Chinedu LEMUS Diamond Provider: Tianna Tamayo II, M.D. :1960 A ge:64 Y S ex:Female Date:01/15/2025 Address:[address] [place], [place] [id number] Subjective: * Chief Complaints: * 1 . ITP Trial: Please ask Pt who to send NS consult to and if she is willing to have a new psych eval (prev exp'd 09/08/24) and if so, create referrals/orders for both.. 2. Neck pain. 3. Low back pain. 4. MARY shoulder pain. * HPI: T ODAYS PAIN EVALUATION: 64 year old female presents with c/o MEDICATION FOLLOW UP: T he patient is currently prescribed Oxycodone 7.5/325mg TID, which provides 20% relief of pain symptoms for 3 hours. The last dose was taken 0 D enies side effects. CURRENT PAIN SYMPTOMS: L ocation of Worst Pain: L ow Back, P ain Frequency: c onstant, fluctuating, always, P ain Description: a emmett, burning, cramping, sharp, stabbing, numb, tingling, A verage Pain Score VAS: 9 , P ain Exacerbation: my life feel like , P ain Alleviation: laying down, A DL/Quality of Life Interference: housework,pet care,, Everything. P AIN MANAGEMENT TREATMENT HISTORY: IMAGING HISTORY: 0 11/01/2017 MRI CERVICAL -Stable posterior disc osteophyte complex at the C4/C5 level creating no new central spinal canal stenosis. Very little interval change when compared to the prior study. 0 04/21/2018 MRI LUMBAR -Multilevel spondylitic changes, greatest at the L5-S1 level, where there is far left lateral components of a left asymmetric disc bulge producing qxnurwbq-[id number] left neuroforaminal stenosis and subarticular recess narrowing. [...] with no relief A shira Therapy- At [facility] 1994 which helped after her stroke 0 11/20/2024 No therapies reported pt denies . P ERTINENT SURGICAL EVALUATIONS/SPECIALIST CONSULTS N o prior surgical consult . P REVIOUS PAIN CLINIC CARE: Tianna Jin . Chinedu PICKARD OF INITIAL EVALUATION: 0 09/26/2019- New patient consult referred by Jaelyn Godly AP RN for chronic pain onset in 2014 [...] Denies bowel or bladder incontinence. Denies saddle anesthesia.? C OMPLIANCE: RISK ASSESSMENT AND STRATIFICATION: R ISK GROUP: HIGH RISK D ue to: Depression, Multiple Co-Morbidities Concominant use of the following medications: benzodiazepine Discharge from Previous Clinic . U RINE DRUG TESTIN 11/29/2023 Screen Expected 0 02/01/2024 Screen Expected 0 03/27/2024 Screen Expected 0 05/29/2024 Screen Expected 1 09/23/2023 Screen Expected 0 09/26/2024 Screen Expected Definitive Expected 0 11/20/2024 Screen Expected . M ONITORING: M orphine Equivalent (MME): [...] genitourinary issues. M USCULOSKELETAL: Positive for n imchelle pain, back pain, joint pain, swelling, stiffness, muscle spasms. N EUROLOGICAL: Positive for n umbness, tingling. P SYCHIATRIC: Positive for d epression, anxiety Bipolar Disorder. ? E NDOCRINE: Positive for d enies endocrine issues. * Medical History: a nxiety diagnosed managed by Jaelyn Renteria APRN , asthma diagnosed 1979 managed by Jaelyn Renteria APRN , bipolar disorder diagnosed 1993 managed by Jaelyn Renteria APRN , COPD diagnosed 1979 managed by Jaelyn Renteria APRN , fibromyalgia diagnosed 1989 managed by Jaelyn Renteria APRN , depression diagnosed 1970s managed by Jaelyn Renteria APRN , seizures diagnosed 2016 managed by Jaelyn Renteria APRN , Stroke diagnosed 1993 managed by Jaelyn Renteria APRN , Hypothyroidism diagnosed 1979 managed by Jaelyn Renteria APRN , scoliosis diagnosed 1979 managed by Jaelyn Renteria APRN , Degenerative disc disease diagnosed 1999 managed by Jaelyn Renteria APRN . * Surgical History: L eft ankle surgery x2/ [facility] / with a 3 day stay 1999, Appendectomy/ [facility] / overnight stay 2003, Cholecystectomy/ [facility] / overnight stay 2002, LT Hand Surgery x2/ [facility] / with a 3 day stay 1976, Neck (cervical discetomy)Dr. Marc/ [facility] / over night stay 2004, RT Shoulder / [facility] / (OP) 1981, Tonsillectomy/ [facility] / (OP) 1965, Tubal abdominal ligation / in [place] / (OP) 1981, Bladder lift / [facility] / Dr. Alicia Crawford / (OP) 2005, Ovarien Cyst Rupture/ [facility] in [facility] / with a 3-4 day stay 1987, oophorectomy (left)/ [facility] / (OP) 2005, [place] teeth/ Dr. Hess / (OP) 1976, Hernia repair / [facility] / (OP) 03/14/2021. * Hospitalization/Major Diagno [...] nterpretation N egative. * Medications: T aking tiZANidine 4 mg tablet 1 tab(s) orally [...] 1 tab(s) orally once a day , Taking acetaminophen-oxycodone 325 mg-7.5 mg tablet 1 tab(s) orally 3 times a day , Taking TiZANidine Hydrochloride 4 mg tablet 1 tab(s) orally every 8 hours , Medication List reviewed and reconciled with the patient * Allergies: N eosporin: rash - Allergy, codeine: anaphylaxis - Allergy, diphenhydramine: hives - Allergy, morphine: anaphylaxis - Allergy, prednisone: anaphylaxis - Allergy, ibuprofen: hives - Allergy, methadone: stomach upset - Side Effects, Soma: hives - Allergy, Dilaudid: hives - Allergy. Objective: * Vitals: * Examination: G eneral Examination: Nurse/Roof Truss Detailer: Bethany gonzalez(MA-Ray)[place] 11/20/2024 2:29:18 PM > . General Appearance: NAD, well [...] Assessment: * Assessment: 1. 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 l umbar spondylosis - M47.816 3 . c ervical spondylosis - M47.812 4 .?Postlaminectomy syndrome, not elsewhere classified - M96.1 5 . C omplex regional pain syndrome I of right lower limb - G90.521 11/20/2024 Ms. Louie returns today for office visit and medication refill. Patient with chronic LBP with radicular pain [...] significant benefit but with a different opioid. When discussing the medication for the ITP [...] assessment for her back and radicular pain. We are waiting for NS consult and until that time we will hold on ITP. Continue percocet 7.5mg TID. Denies any side effects. Johnathan and UDS reviewed. Meds refilled and f/u 2 months. Plan: * Treatment: * Procedures: Chelsi SMITH ENCOUNTER AND OVERSIGHT: Consult Performed By: Austin forbes(DATA PROCESSING SUPERVISOR-RAY),Lotus 11/20/2024 2:58:33 PM > . c ollaborated treatment plan with Tianna Tamayo M.D., supervising physician who was present in office during consultation. * Follow Up: 2 Months * * Electronic signature of Nigle Tamayo II, M.D. on 07/10/2025 at 07:10 AM DIE TESTER Sign off status: Pending * Provider: Tianna Tamayo II, M.D. Date: 0 01/15/2025 Generated for Bacilio anna/Sajan/eTransmitting on: 1 09/09/2024 07:10 AM DIE TESTER History and Physical Notes * HPI (History [...] of a left asymmetric disc bulge producing zninxenj-ia-yyrdgd left neuroforaminal stenosis and subarticular recess narrowing. Far left lateral component encroaches upon and may abut or contact the exiting left L5 nerve root PHYSICAL/AQUA THERAPY/DME/OT HER HISTORY: Physical Therapy- 2018 with no relief Aqua Therapy- At [facility] 1994 which helped after her stroke 11/20/2024 No therapies reported pt denies PERTINENT SURGICAL EVALUATIONS/SPECIALIST CONSULTS No prior surgical [...] benzodiazepine Discharge from Previous Clinic URINE DRUG TESTIN11/29/2023 Screen Expected 02/01/2024 Screen Expected 03/27/2024 Screen Expected 05/29/2024 Screen Expected 07/24/2024 Screen Expected 09/26/2024 Screen Expected Definitive Expected 11/20/2024 Screen Expected MONITORING: Morphine Equivalent (MME): 34 JOHNATHAN reviewed today and appropriate TESTING/RISK ASSESSMENTS ORT Score/Result: 23( OCD, Bipolar, Depression, Family history of substance abuse, Personal history of substance abuse) TODAYS PAIN EVALUATION MEDICATION FOLLOW UP: The patient is currently prescribed Oxycodone 7.5/325mg TID, which provides 20% relief of pain symptoms for 3 hours. The last dose was taken Denies side effects CURRENT PAIN SYMPTOMS: Location of Worst Pain:: Low Back Pain Frequency:: constant, fluctuating, always Pain Description:: aching, b urning, cramping, sharp, stabbing, numb, tingling Average Pain Score VAS:: 9 Pain Exacerbation:: my life feel like de ad Pain Alleviation:: laying down ADL/Quality of Life Interference:: house work,pet care,, Everything Examination Category Sub-Category Detail Notes Category Not [...] leads removed, tip intact. Sterile dressing applied Nurse/Roof Truss Detailer: [place] Graham (MA-Lex) 11/20/2024 2:29:18 PM > Cervical Spine/Neck Vertebral spine tenderness: [...]
--- OUTSIDE RECORDS SUMMARY | 2025-04-23 09:45 | XMS_ITS ---
Author Organization [facility] Address [address] [place] [address] Care Team Providers Care Pipe Organ Builder Name Role Phone ClauszainRed rush II Unavailable Jaelyn Guerrero Unavailable Unavailable Freeman Albarran Unavailable [phone] Allergies Allergen (clinical drug ingredient) Drug/Non Drug [...] 3 times a day; Duration: 28 days 2024 RX, DO NOT FILL SOONER THAN 28 DAYS, (OK TO FILL EARLY, ONLY IF CLOSED) Active acetaminophen-oxycodo ne 325 mg-7.5 mg 1 tab(s) orally 3 times a day; Duration: 28 days MARCH 2025 RX, DO NOT FILL SOONER THAN 28 DAYS, (OK TO FILL EARLY, ONLY IF CLOSED) Active fenofibrate 145 mg 1 tab(s) orally once a day; Duration: 30 day(s) 10/29/2022 Active Lidocaine Pain Relief Patch 4% 1 PATCH applied topically once a day; Duration: 30 days On for 12 hours, then remove for 12 hours Active TiZANidine Hydrochloride 4 mg 1 tab(s) orally every 8 hours; Duration: 30 days Active meclizine 25 mg 1 tab Oral tid prn; Duration: 15 days 10/29/2022 Active venlafaxine 150 mg 1 cap(s) orally once a day; Duration: 30 day(s) 10/29/2022 Active SUMAtriptan 6 mg/0.5 mL as directed subcutaneously once 10/29/2022 Active buPROPion 150 mg/12 hours 1 tab(s) orally 2 times a day; Duration: 30 day(s) 10/29/2022 Active acyclovir 400 mg 1 tab(s) orally 2 times a day 10/29/2022 Active benzonatate 100 mg 1 cap(s) orally 3 times a day; Duration: 5 day(s) 10/20/2022 Active levothyroxine 75 mcg (0.075 mg) 1 tab(s) orally once a day Active Social History Alcohol Screen Question Answer Notes Did you have a drink contain ing alcohol in the past year? Yes How often did you have a dri nk containing alcohol in the past year? Monthly or less (1 point) Points 1 Interpretation Negative Encounters Encounter Location Date Provider Diagnosis [facility] [address] [place] [address] 04/23/2025 Freeman Albarran Other director long term care (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 Z79.899 ; lumbar spondylosis M47.816 ; cervical spondylosis M47.812 ; Postlaminectomy syndrome, not elsewhere classified M96.1 and Complex regional pain syndrome I of right lower limb G90.521 Assessments Encounter Date Diagnosis (ICD Code) Assessment Notes Treatment Notes Treatment Clinical Notes Section Notes 04/23/2025 Other fpc (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 (ICD-10 - Z79.899) 04/23/2025 1. Refill Percocet 7.5/325mg TID 2. Refill Tizanidine 4mg TID 3. Refill Lidocaine patch daily as directed 4. Follow [...] were reviewed. Opioid risk assessment is low. 04/23/2025 lumbar spondylosis (ICD-10 - M47.816) 03/27/2025 Ms. [...] were reviewed. Opioid risk assessment is low. 04/23/2025 cervical spondylosis (ICD-10 - M47.812) 03/27/2025 Ms. [...] were reviewed. Opioid risk assessment is low. 04/23/2025 Postlaminectomy syndrome, not elsewhere classified (ICD-10 - [...] were reviewed. Opioid risk assessment is low. 04/23/2025 Complex regional pain syndrome I of right [...] 3 times a day; Duration: 28 days 2024 RX, DO NOT FILL SOONER THAN 28 DAYS, (OK TO FILL EARLY, ONLY IF CLOSED) acetaminophen-oxycodone 325 mg-7.5 mg 1 tab(s) orally 3 times a day; Duration: 28 days MARCH 2025 RX, DO NOT FILL SOONER THAN 28 DAYS, (OK TO FILL EARLY, ONLY IF CLOSED) Lidocaine Pain Relief Patch 4% 1 PATCH applied topically once a day; Duration: 30 days TiZANidine Hydrochloride 4 mg 1 tab(s) orally every 8 hours; Duration: 30 days Treatment Notes Assessment Notes Other fpc (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 04/23/2025 1. Refill Percocet 7.5/325mg TID 2. Refill Tizanidine 4mg TID 3. Refill Lidocaine patch daily as directed 4. Follow up in 1 month for MD Pending Test Test Name Order Date Urine Test ANALYZER 04/23/2025 Next Appt Details Follow Up: 2 Months, Reason: Provider Name:Red cooney, 08/31/2025 02:45:00 PM, [address], [address], [address], Progress Notes * Diamond LOUIEDOB: [birth year] (64 yo F)Acc No.[id number]:04/23/2025 Patient: Chinedu Diamond LEMUS Provider: Humera Albarran MD :1960 A ge:64 Y S ex:Female Date:04/23/2025 Address:[address] [place] [address] [place], [id number] Subjective: * Chief Complaints: * 1 . 2 Month Follow Up. * HPI: T ODAYS PAIN EVALUATION: 64 [...] of a left asymmetric disc bulge producing cvsoqkil-ms-ngnjhh left neuroforaminal stenosis and subarticular recess narrowing. [...] with no relief A shira Therapy- At [facility] 1994 which helped after her stroke 0 01/30/2025 No therapies reported pt denies . P ERTINENT SURGICAL EVALUATIONS/SPECIALIST CONSULTS N o prior surgical consult . P REVIOUS PAIN CLINIC CARE: Tianna Jin . S MELLY OF INITIAL EVALUATION: 0 09/26/2019 - New patient consult referred by Jaelyn Godly [...] 0 01/30/2025 Screen Unexpected(-)Sent for Definitive, 0 03/27/2025 S creen Expected 0 04/23/2025. M ONITORING: M orphine Equivalent (MME): 34 [...] disease diagnosed 1999 managed by Jaelyn Renteria APRN. * Surgical History: L eft ankle surgery x2/ [facility] / with a 3 day stay 1999, Appendectomy/ [facility] / overnight stay 2003, Cholecystectomy/ [facility] / overnight stay 2002, LT Hand Surgery x2/ [facility] / with a 3 day stay 1976, Neck (cervical discetomy)Dr. Marc/ [facility] / over night stay 2004, RT Shoulder / [facility] / (OP) 1981, Tonsillectomy/ [facility] / (OP) 1965, Tubal abdominal ligation / in [place] / (OP) 1981, Bladder lift / [facility] / Dr. Alicia Crawford / (OP) 2005, Ovarien Cyst Rupture/ [place]atta A [facility] in [facility] / with a 3-4 day stay 1987, oophorectomy (left)/ [facility] / (OP) 2005, [place] teeth/ Dr. Hess / (OP) 1976, Hernia repair / [facility] / (OP) 03/14/2021. * Hospitalization/Major Diagno stic Procedure: B owel obstruction / / treated and released 02/2021, Coughing/ [facility]/1 day stay 01/2025. * Family History: N on-Contributory. Family history [...] nterpretation N egative. * Medications: T aking TiZANidine Hydrochloride 4 mg tablet 1 tab(s) orally every 8 hours , Taking levothyroxine 75 mcg (0.075 mg) tablet 1 tab(s) orally once a day , Taking benzonatate 100 mg [...] tab(s) orally once a day , Taking Lidocaine Pain Relief Patch 4% film 1 PATCH applied topically once a day On for 12 hours, then remove for 12 hours, Taking acetaminophen-oxycodone 325 mg-7.5 mg tablet 1 tab(s) orally 3 times a day , Medication List reviewed and reconciled with the patient * Allergies: N eosporin: rash - Allergy, codeine: anaphylaxis - Allergy, diphenhydramine: hives - Allergy, morphine: anaphylaxis - Allergy, prednisone: anaphylaxis - Allergy, ibuprofen: hives - Allergy, methadone: stomach upset - Side Effects, Soma: hives - Allergy, Dilaudid: hives - Allergy. Objective: * Vitals: * Examination: G eneral Examination: Nurse/Telecom Sales Consultant: Juan Jean-BaptisteMA-Ray)Rianna 03/27/2025 02:44:00 PM EDT >. General Appearance: [...] L T SI joint tenderness lower perispinal tenderness. Inspection: n oticable scoliosis . Straight leg [...] risk assessment is low. Plan: * Treatment: * Follow Up: 2 Months * * Electronic signature of Kj Albarran M.D. on 07/10/2025 at 07:09 AM TURNSTILE COLLECTOR Sign off status: Pending * Provider: Humera Albarran MD Date: 0 04/23/2025 Generated for Bacilio anna/Sajan/Juan on: 1 09/09/2024 07:09 AM TURNSTILE COLLECTOR History and Physical Notes * HPI (History of Present Illness) Category Sub-Category Detail Notes Category Not es PAIN MANAGEMENT TREATMENT HISTORY SUMMARY OF INITIAL EVALUATION: 09/26/2019 - New patient consult referred by Jaelyn CORDOBA [...] of a left asymmetric disc bulge producing gvjddpez-ty-covzwp left neuroforaminal stenosis and subarticular recess narrowing. Far left lateral component encroaches upon and may abut or contact the exiting left L5 nerve root PHYSICAL/AQUA THERAPY/DME/OT HER HISTORY: Physical Therapy- 2018 with no relief Aqua Therapy- At [facility] 1994 which helped after her stroke [...] Screen Expected 01/30/2025 Screen Unexpected(-)Sent for Definitive, 03/27/2025 Screen Expected 04/23/2025 MONITORING: Morphine Equivalent (MME): 34 JOHNATHAN reviewed [...] leads removed, tip intact. Sterile dressing applied Nurse/Telecom Sales Consultant: Jay Martin (MA-Lex) 03/27/2025 02:44:00 PM EDT > Cervical Spine/Neck [...]
--- OUTSIDE RECORDS SUMMARY | 2025-06-08 09:15 | XMS_ITS ---
Author Organization [facility] Address [address] [place] [address] Care Team Providers Care Cow Trimmer Name Role Phone Red Tamayo II Unavailable [...] Reference Range Notes Urine Test ANALYZER Reviewed date:06/08/2025 03:17:18 PM Interpretation:NEG ALL Performing Lab: Notes/Report: NEG ALL Amphetamine (AMP) NEG Benzodiazepine (EMANUEL) NEG Methadone (MTD) NEG Opiate (OPI) NEG REASON FOR VISIT Neck pain, Low back pain, MARY shoulder pain Medications Medication SIG (Take, Route, Frequency, Duration) Notes Start Date End Date Status Lidocaine Pain Relief Patch 4% 1 PATCH applied topically once a day; Duration: 30 days On for 12 hours, then remove for 12 hours Active acetaminophen-oxycodo ne 325 mg-7.5 mg 1 tab(s) orally 3 times a day; Duration: 28 days June 2025 RXDO NOT FILL SOONER THAN 28 DAYS, (OK TO FILL EARLY, ONLY IF CLOSED) Active methocarbamol 500 mg 1 tab orally 3 time s a day; Duration: 30 days 06/08/2025 Active acetaminophen-oxycodo ne 325 mg-7.5 mg 1 tab(s) orally 3 times a day; Duration: 28 days May 2025 RX DO NOT FILL SOONER THAN [...] orally 2 times a day 10/29/2022 Active venlafaxine 150 mg 1 cap(s) orally once a day; Duration: 30 day(s) 10/29/2022 Active benzonatate 100 mg 1 cap(s) orally 3 times a day; Duration: 5 day(s) 10/20/2022 Active levothyroxine 75 mcg (0.075 mg) 1 tab(s) orally once a day Active SUMAtriptan 6 mg/0.5 mL as directed subcutaneously once 10/29/2022 Active Social History Alcohol Screen Question Answer Notes Did you have a drink contain ing alcohol in the past year? Yes How often did you have a dri nk containing alcohol in the past year? Monthly or less (1 point) Points 1 Interpretation Negative Vital Signs Blood pressure systolic 126 mm Hg 06/08/20 25 Blood pressure diastolic 75 mm Hg 025 Heart Rate 81 /min 06/08/2025 Height 65 in 06/08/2025 Weight 145 lbs 06/08/2025 BMI 24.13 kg/m2 06/08/2025 Encounters Encounter Location Date Provider Diagnosis [facility] [address] [place] [address] 06/08/2025 Red Tamayo Other fpc (current) drug therapy Z79.899 ; lumbar spondylosis M47.816 ; cervical spondylosis M47.812 ; Postlaminectomy syndrome, not elsewhere classified M96.1 and Complex regional pain syndrome I of right lower limb G90.521 Assessments Encounter Date Diagnosis (ICD Code) Assessment Notes Treatment Notes Treatment Clinical Notes Section Notes 06/08/2025 Other fpc (current) drug therapy (ICD-10 - Z79.899) June 08, 2025 1. Refill percocet 7.5/325mg TID 2. Refill tizanidine 4mg TID - stop 3. Refill Lidocaine patch daily as directed 4. Order TENS unit 5. Follow up in 2 months 6. Start Robaxn 500mg TID 03/27/2025 Ms. Louie is a 64 year-old with complaints chronic low back pain who presents today for a follow up office visit for medication refill. Continues to report low back pain with with radicular pain. Also complains of bilateral shoulder pain. Describes pain as aching, burning, cramping, sharp, stabbing, numb, and tingling. Rates 06/08 on todays visit. She reports 20 percent [...] were reviewed. Opioid risk assessment is low. [id number] - Patient with increased spasms to her left thoracic and lumbar spine since being taken off her Vailum. She states the Zanaflex is not effective She recalls being on Robaxin with benefit in the past without side effects. She reports no other new complaints. She reports decent pain control with her current analgesic regimen. She is doing her HEP.. Most recent JOHNATHAN and UDS reviewed. Patient to continue with her HEP, continue with her medications except change her tizanidine to methocarbomol 500mg tid and have her follow up in 4 weeks to assess the medication change. Will request a TENS unit for her chronic back pain. 06/08/2025 lumbar spondylosis (ICD-10 - M47.816) 03/27/2025 Ms. Louie is a 64 year-old with complaints chronic low back pain who presents today for a follow up office visit for medication refill. Continues to report low back pain with with radicular pain. Also complains of bilateral shoulder pain. Describes pain as aching, burning, cramping, sharp, stabbing, numb, and tingling. Rates 06/08 on todays visit. She reports 20 percent [...] were reviewed. Opioid risk assessment is low. [id number] - Patient with increased spasms to her left thoracic and lumbar spine since being taken off her Vailum. She states the Zanaflex is not effective She recalls being on Robaxin with benefit in the past without side effects. She reports no other new complaints. She reports decent pain control with her current analgesic regimen. She is doing her HEP.. Most recent JOHNATHAN and UDS reviewed. Patient to continue with her HEP, continue with her medications except change her tizanidine to methocarbomol 500mg tid and have her follow up in 4 weeks to assess the medication change. Will request a TENS unit for her chronic back pain. 06/08/2025 cervical spondylosis (ICD-10 - M47.812) 03/27/2025 Ms. [...] were reviewed. Opioid risk assessment is low. [id number] - Patient with increased spasms to her left thoracic and lumbar spine since being taken off her Vailum. She states the Zanaflex is not effective She recalls being on Robaxin with benefit in the past without side effects. She reports no other new complaints. She reports decent pain control with her current analgesic regimen. She is doing her HEP.. Most recent JOHNATHAN and UDS reviewed. Patient to continue with her HEP, continue with her medications except change her tizanidine to methocarbomol 500mg tid and have her follow up in 4 weeks to assess the medication change. Will request a TENS unit for her chronic back pain. 06/08/2025 Postlaminectomy syndrome, not elsewhere classified (ICD-10 - [...] were reviewed. Opioid risk assessment is low. [id number] - Patient with increased spasms to her left thoracic and lumbar spine since being taken off her Vailum. She states the Zanaflex is not effective She recalls being on Robaxin with benefit in the past without side effects. She reports no other new complaints. She reports decent pain control with her current analgesic regimen. She is doing her HEP.. Most recent JOHNATHAN and UDS reviewed. Patient to continue with her HEP, continue with her medications except change her tizanidine to methocarbomol 500mg tid and have her follow up in 4 weeks to assess the medication change. Will request a TENS unit for her chronic back pain. 06/08/2025 Complex regional pain syndrome I of right [...] were reviewed. Opioid risk assessment is low. [id number] - Patient with increased spasms to her left thoracic and lumbar spine since being taken off her Vailum. She states the Zanaflex is not effective She recalls being on Robaxin with benefit in the past without side effects. She reports no other new complaints. She reports decent pain control with her current analgesic regimen. She is doing her HEP.. Most recent JOHNATHAN and UDS reviewed. Patient to continue with her HEP, continue with her medications except change her tizanidine to methocarbomol 500mg tid and have her follow up in 4 weeks to assess the medication change. Will request a TENS unit for her chronic back pain. Plan Of Treatment Medication Medication Name Sig Start Date Stop Date Notes Lidocaine Pain Relief Patch 4% 1 PATCH applied topically once a day; Duration: 30 days TiZANidine Hydrochloride 4 mg 1 tab(s) orally every 8 hours; Duration: 30 days acetaminophen-oxycodone 325 mg-7.5 mg 1 tab(s) orally 3 times a day; Duration: 28 days June 2025 RXDO NOT FILL SOONER THAN 28 DAYS, (OK TO FILL EARLY, ONLY IF CLOSED) methocarbamol 500 mg 1 tab orally 3 time s a day; Duration: 30 days 06/08/2025 acetaminophen-oxycodone 325 mg-7.5 mg 1 tab(s) orally 3 times a day; Duration: 28 days May 2025 RX DO NOT FILL SOONER THAN 28 DAYS, (OK TO FILL EARLY, ONLY IF CLOSED) Treatment Notes Assessment Notes Other fpc (current) drug therapy June 08, 2025 1. Refill percocet 7.5/325mg TID 2. Refill tizanidine 4mg TID - stop 3. Refill Lidocaine patch daily as directed 4. Order TENS unit 5. Follow up in 2 months 6. Start Robaxn 500mg TID Next Appt Details Follow Up: 2 Months, Reason: Provider Name:Red cooney, 08/31/2025 02:45:00 PM, [address], [facility] [address], [place], [address], Procedure Notes * Category Sub-Category Detail Notes PROVIDER ENCOUNTER AND OVERSIGHT Consult Performed By: Nikole ( DISASSEMBLER PRODUCT-RAY)Magali 03/27 03:25:49 PM EDT > collaborated treatment plan with Red vallejo M.D., supervising physician who was present in office during consultation Progress Notes * Diamond LOUIEDOB: [birth year] (64 yo F)Acc No.[id number]:06/08/2025 FollowUP Patient: Diamond JUAREZ Provider: Tianna Tamayo II, M.D. :1960 A ge:64 Y S ex:Female Date:06/08/2025 Address:[address] [place], [place] [id number] Subjective: * Chief Complaints: * 1 . Neck pain. 2. Low back pain. 3. MARY shoulder pain. * HPI: T ODAYS PAIN EVALUATION: 64 year old female presents with c/o MEDICATION FOLLOW UP: T he patient is currently prescribed Oxycodone 7.5/325mg TID, which provides 10% relief of pain symptoms for 2 hours. The last dose was taken 06/08/2025 Denies side effects. CURRENT PAIN SYMPTOMS: L ocation of Worst Pain: L ow Back, P ain Frequency: c onstant, P ain Description: a emmett, burning, cramping, sharp, stabbing, numb, tingling, A verage Pain Score VAS: 9 , P ain Exacerbation: Everything, P ain Alleviation: laying down, A DL/Quality of Life Interference: Everything. P AIN MANAGEMENT TREATMENT HISTORY: IMAGING [...] of a left asymmetric disc bulge producing [id number]-pz-[id number] left neuroforaminal stenosis and subarticular recess narrowing. [...] P HYSICAL/AQUA THERAPY/DME/OTHER HISTORY: P hysical Therapy- 2018 with no relief A shira Therapy- At [facility] 1994 which helped after her stroke 0 01/30/2025 No therapies reported pt denies A tending pt for shoulders as of 06/08/2025.?PERTINENT SURGICAL EVALUATIONS/SPECIALIST CONSULTS N o prior surgical [...] Previous Clinic . U [facility] DRUG TESTIN 09/23/2023 Screen Expected 0 09/26/2024 Screen Expected Definitive Expected 0 11/20/2024 Screen Expected 0 01/30/2025 Screen Unexpected(-)Sent for Definitive, 0 03/27/2025, Screen Expected 0 04/26/2025,,Screen Expected 1 ,. M ONITORING: M orphine Equivalent (MME): 34 [...] Medical History: a nxiety diagnosed managed by Jaelyntomas Renteria SCHEDULING REPRESENTATIVE , [facility] , bipolar disorder diagnosed 1993 [facility] , [facility] , fibromyalgia diagnosed 1989 managed by Jaelyn Godkelley SCHEDULING REPRESENTATIVE , depression diagnosed managed by Jaelyn Godby SCHEDULING REPRESENTATIVE , seizures diagnosed 2016 managed by Jaelyn Myra SCHEDULING REPRESENTATIVE , Stroke diagnosed 1993 managed by Jaelyn Godby SCHEDULING REPRESENTATIVE , Hypothyroidism diagnosed 1979 [facility] , scoliosis diagnosed 1979 managed by Jaelyn Godkelley SCHEDULING REPRESENTATIVE , Degenerative disc disease diagnosed 1999 managed by Jaelyn Myra SCHEDULING REPRESENTATIVE. * Surgical History: L eft ankle surgery [...] Ovarien Cyst Rupture/ [facility] in [facility] / with a 3-4 day stay 1987, oophorectomy (left)/ [facility] / (OP) 2005, [place] teeth/ Dr. Hess / (OP) 1976, Hernia repair / [facility] / (OP) 03/14/2021. * Hospitalization/Major Diagno [...] tab(s) orally every 8 hours , Taking Lidocaine Pain Relief Patch 4% film 1 PATCH applied topically once a day On for 12 hours, then remove for 12 hours, Taking levothyroxine 75 mcg (0.075 mg) tablet [...] tab(s) orally 3 times a day , Notes to Pharmacist: April 2025 RX DO NOT FILL SOONER THAN 28 DAYS, (OK TO FILL EARLY, ONLY IF CLOSED), Taking acetaminophen-oxycodone 325 mg-7.5 mg tablet 1 tab(s) orally 3 times a day , Notes to Pharmacist: March 2025 RX DO NOT FILL SOONER THAN 28 DAYS, (OK TO FILL EARLY, ONLY IF CLOSED), Medication List reviewed and reconciled with the patient * Allergies: N eosporin: rash - Allergy, codeine: anaphylaxis - Allergy, diphenhydramine: hives - Allergy, morphine: anaphylaxis - Allergy, prednisone: anaphylaxis - Allergy, ibuprofen: hives - Allergy, methadone: stomach upset - Side Effects, Soma: hives - Allergy, Dilaudid: hives - Allergy. Objective: * Vitals: B P: 126/75, HR: 81, Pain VAS (0-10): 9, Ht: 65, Wt: 145, BMI:24.13Index. * Examination: G eneral Examination: Nurse/Skin Piler: Obey Blackman (MA LEX) 06/08/2025 02:50:33 PM EDT >. General Appearance: NAD, well [...] . Assessment: * Assessment: 1. O ther superintendent terminal (current) drug therapy - Z79.899 (Primary) 2 [...] sharp, stabbing, numb, and tingling. R ates 06/08 on todays visit. S he reports 20 [...] were reviewed. Opioid risk assessment is low. [id number] - Patient with increased spasms to her left thoracic and lumbar spine since being taken off her Vailum. She states the Zanaflex is not effective She recalls being on Robaxin with benefit in the past without side effects. She reports no other new complaints. She reports decent pain control with her current analgesic regimen. She is doing her HEP.. Most recent JOHNATHAN and UDS reviewed. Patient to continue with her HEP, continue with her medications except change her tizanidine to methocarbomol 500mg tid and have her follow up in 4 weeks to assess the medication change. Will request a TENS unit for her chronic back pain. Plan: * Treatment: Value Reference Range A mphetamine (AMP) NEG * B enzodiazepine (EMANUEL) NEG * M ethadone (MTD) NEG * O piate (OPI) NEG * Leonel(FD-RAY)Mihaela 2024 03:01:51 PM EDT >Ryan(PRIYANK)[place] 06/08/2025 03:07:52 PM EDT > Appropriate. Do not send for confirmation Notes: June 08, 2025 1. Refill percocet 7.5/325mg TID 2. Refill tizanidine 4mg TID - stop 3. Refill Lidocaine patch daily as directed 4. Order TENS unit 5. Follow up in 2 months 6. Start Robaxn 500mg TID?? * Procedures: Chelsi SMITH ENCOUNTER AND OVERSIGHT: Consult Performed By: Austin briseno ( DISASSEMBLER PRODUCT-RAY)Magali 03/27/2025 03:25:49 PM EDT >. c ollaborated treatment plan with Tianna Tamayo M.D., supervising physician who was present in office during consultation. * Follow Up: 2 Months * * Sign off status: Completed true * Provider: Tianna Tamayo II, M.D. Date: Generated for Bacilio anna/Sajan/eTransmitting on: 09/09/2024 07:10 AM SHEET METAL WELDER History and Physical Notes * HPI (History [...] of a left asymmetric disc bulge producing [id number]-[id number] left neuroforaminal stenosis and subarticular recess narrowing. Far left lateral component encroaches upon and may abut or contact the exiting left L5 nerve root PHYSICAL/AQUA THERAPY/DME/OT HER HISTORY: Physical Therapy- 2019 with no relief Aq ua Therapy- At [facility] 1994 which helped after her stroke 01/30/2025 No therapies reported pt denies Atending pt for shoulders as of 06/08/2025 PERTINENT SURGICAL EVALUATIONS/SPECIALIST CONSULTS No prior surgical [...] for Definitive, 03/27/2025, Screen Expected 04/26/2025,,Screen Expected 06/08/2025, MONITORING: Morphine Equivalent (MME): 34 JOHNATHAN reviewed today and appropriate TESTING/RISK ASSESSMENTS ORT Score/Resul t: 23( OCD, Bipolar, Depression, Family history of substance abuse, Personal history of substance abuse) TODAYS PAIN EVALUATION MEDICATION FOLLOW UP: The patient is currently prescribed Oxycodone 7.5/325mg TID, which provides 10% relief of pain symptoms for 2 hours. The last dose was taken 06/08/2025 Denies side effects CURRENT PAIN SYMPTOMS: Location of Worst Pain:: Low Back Pain Frequency:: constant Pain Description:: aching, b urning, cramping, sharp, stabbing, numb, tingling Average Pain Score VAS:: 9 Pain Exacerbation:: Everything Pain Alleviation:: laying down ADL/Quality of Life Interference:: Every thing Examination Category Sub-Category Detail Notes Category Not [...] leads removed, tip intact. Sterile dressing applied Nurse/Skin Piler: Tyler Douglas (MA LEX) 06/08/2025 02:50:33 PM EDT > Cervical Spine/Neck Vertebral spine [...]
--- OUTSIDE RECORDS SUMMARY | 2025-07-04 11:00 | XMS_ITS ---
Author Organization [facility] Address [address] [place] [address] Care Team Providers Care Editor In Chief Newspaper Name Role Phone Red Tamayo II Unavailable [...] Diagnosis [facility] [address] [place] [address] 07/04/2025 Red Tamayo [facility] drug [facility] Z79.899 ; lumbar spondylosis M47.816 ; cervical spondylosis M47.812 ; Postlaminectomy syndrome, not elsewhere classified M96.1 and Complex regional pain syndrome I of right lower limb G90.521 Assessments Encounter Date Diagnosis (ICD Code) Assessment Notes Treatment Notes Treatment Clinical Notes Section Notes 07/04/2025 [facility] ([facility] drug therapy (ICD-10 - Z79.899) June [...] were reviewed. Opioid risk assessment is low. [id number] - Patient with increased spasms to her [...] TENS unit for her chronic back pain. 07/04/2025 lumbar spondylosis (ICD-10 - M47.816) 03/27/2025 Ms. [...] were reviewed. Opioid risk assessment is low. [id number] - Patient with increased spasms to her [...] TENS unit for her chronic back pain. 07/04/2025 cervical spondylosis (ICD-10 - M47.812) 03/27/2025 Ms. [...] were reviewed. Opioid risk assessment is low. 31GHZ82 - Patient with increased spasms to her [...] TENS unit for her chronic back pain. 07/04/2025 Postlaminectomy syndrome, not elsewhere classified (ICD-10 [...] were reviewed. Opioid risk assessment is low. 36KEU10 - Patient with increased spasms to her [...] TENS unit for her chronic back pain. 07/04/2025 Complex regional pain syndrome I of [...] were reviewed. Opioid risk assessment is low. [id number] - Patient with increased spasms to her [...] 30 days Treatment Notes Assessment Notes [facility] ([facility] drug therapy June 08, 2025 1. Refill percocet 7.5/325mg TID 2. Refill tizanidine 4mg TID - stop 3. Refill Lidocaine patch daily as directed 4. Order TENS unit 5. Follow up in 2 months 6. Start Robaxn 500mg TID Next Appt Details Follow Up: 2 Months, Reason: Provider Name:Red cooney, 08/31/2025 02:45:00 PM, [address], [facility] [address], [place], [address], Procedure Notes * Category Sub-Category Detail Notes PROVIDER ENCOUNTER AND OVERSIGHT Consult Performed By: Nikole SANTOS)Magali 03/27 03:25:49 PM EDT > collaborated treatment plan with Red vallejo M.D., supervising physician who was present in office during consultation Progress Notes * Diamond LOUIEDOB: [birth year] (64 yo F)Acc No.[id number]:07/04/2025 FollowUP Patient: Diamond JUAREZ Provider: Tianna Tamayo II, M.D. :1960 A ge:64 Y S ex:Female Date:07/04/2025 Address:[address] [place] [address] [id number] Subjective: * Chief Complaints: * 1 . [...] of a left asymmetric disc bulge producing xixmsfye-kf-npqnrk left neuroforaminal stenosis and subarticular recess narrowing. [...] - ITP Trial, 80% relief for 7 days. P HYSICAL/AQUA THERAPY/DME/OTHER HISTORY: 1 pt onshoulders not helpful T herapy- At [facility] 1994 which helped after her stroke 1 09/03/2024 , No therapies reported. P ERTINENT SURGICAL EVALUATIONS/SPECIALIST CONSULTS N o prior surgical consult . P REVIOUS PAIN CLINIC CARE: Tianna Jin . S JOMARY OF INITIAL EVALUATION: [...] 03/27/2025, Screen Expected 0 04/26/2025,,Screen Expected 1 , 1 09/03/2024. M ONITORING: M orphine Equivalent (MME): 34 [...] APRN , [facility] , scoliosis diagnosed 1979 managed by Jaelyn Renteria APRN , Degenerative disc disease diagnosed 1999 managed by Jaelyn Renteria APRN. * Surgical History: L eft ankle surgery x2/ [facility] / with a 3 day stay 1999, Appendectomy/ [facility] / overnight stay 2003, Cholecystectomy/ [facility] / overnight stay 2002, LT Hand Surgery x2/ [facility] / with a 3 day stay 1976, Neck (cervical discetomy)Dr. Marc/ [facility] / over night stay 2004, RT Shoulder / [facility] / (OP) 1981, Tonsillectomy/ [facility] / (OP) 1965, Tubal abdominal ligation / in [place] / (OP) 1981, Bladder lift / [facility] / Dr. Alicia Crawford / (OP) 2005, Ovarien Cyst Rupture/ [facility] / with a 3-4 day stay 1987, oophorectomy (left)/ [facility] / (OP) 2005, [place] teeth/ Dr. Hess / (OP) 1976, Hernia repair / [facility] / (OP) 03/14/2021. * Hospitalization/Major Diagno stic Procedure: B owel obstruction / / treated and released 02/2021, Coughing/ [facility]/1 day stay 01/2025. * Family History: N [...] nterpretation N egative. * Medications: T aking Lidocaine Pain Relief Patch 4% film 1 [...] orally 3 times a day , Taking methocarbamol 500 mg tablet 1 tab orally 3 times a day * Allergies: N eosporin: rash - Allergy, codeine: anaphylaxis - Allergy, diphenhydramine: hives - Allergy, morphine: anaphylaxis - Allergy, prednisone: anaphylaxis - Allergy, ibuprofen: hives - Allergy, methadone: stomach upset - Side Effects, Soma: hives - Allergy, Dilaudid: hives - Allergy. Objective: * Vitals: B P:136/76, HR:79, Pain VAS (0-10): 8, Ht: 65, Wt:144, BMI:23.96Index. * Examination: G eneral Examination: Nurse/It Business Analyst: Bethany gonzalez(NICHOLE-Ray), [place] 07/04/2025 03:47:09 PM EST >. General Appearance: [...] . Assessment: * Assessment: 1. 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 Opioid risk assessment is low. [id number] - Patient with increased spasms to her [...] NEG * O piate (OPI) NEG * Miguel, Mahan 07/04/2025 03:39: 33 PM EST >Alexandre(PATIENT SERVICES ASSISTANT-RAY), Lotus 07/04/2025 04:05:31 PM EST > (Confirm All) Send specimen for definitive testing on Amphetamines, Anticonvulsants, Antitussive, Barbiturates,Bath Salts, Benzodiazepines, Buprenorphine, Fentanyl,CIPRIANO Analogue, Heroin, Illicits, Methadone, Methylphenidate, Muscle Relaxants, Nicotine, Opiates, Opioid Antagonist, Other Anxiolytic,Recreational Compounds, Sleep Aids, SSRI/SNRI,Synthetic Cannabinoids,Tricyclics drug classes it has been 6 months since last UDS confirmation Notes: June 08, 2025 1. Refill [...] signature of Nigel Tamayo II, M.D. on 07/10/2025 at 07:09 AM ASSISTANT TO THE DEAN Sign off status: Pending * Provider: Tianna Tamayo II, M.D. Date: 09/03/2024 Generated for Bacilio anna/Sajan/Juan on: 09/09/2024 07:09 AM ASSISTANT TO THE DEAN History and Physical Notes * HPI (History [...] of a left asymmetric disc bulge producing nfscapmp-cy-dtczvm left neuroforaminal stenosis and subarticular recess narrowing. Far left lateral component encroaches upon and may abut or contact the exiting left L5 nerve root PHYSICAL/AQUA THERAPY/DME/OT HER HISTORY: 05/2025 pt onshoulders not helpful Thera py- At [facility] 1994 which helped after her stroke [...] removed, tip intact. Sterile dressing applied Nurse/It Business Analyst: [place] Graham (MA-Lex) 07/04/2025 03:47:09 PM EST > Cervical Spine/Neck [...]
[2025-07-10 07:56] VITALS: PULSE 80; O2SAT 98
--- NOTE | 2025-07-10 07:56 | CT_ITS ---
FINAL REPORT TECHNIQUE: Noncontrast exam This study was performed with techniques to keep radiation doses as low as reasonably achievable, (ALARA). Individualized dose reduction techniques using automated exposure control or adjustment of mA and/or kV according to the patient''s size were employed. CLINICAL HISTORY: fall COMPARISON: 06/21/2025 FINDINGS: Moderate atrophy and chronic ischemic white matter changes are noted. No cortical edema is present. There is no mass or hemorrhage. Ventricles are normal. Bone windows show no skull fracture or obvious obstructive lesion. IMPRESSION: 1. No acute intracranial abnormality or obvious mass. 2. Atrophy and chronic ischemic white matter changes as above. Reviewed, Interpreted and Dictated by Rhiannon Grover MD Transcribed by Maggy Mackey Authenticated and [facility]
--- NOTE | 2025-07-10 07:56 | XR_ITS ---
FINAL REPORT CLINICAL HISTORY: fall proximal pain COMPARISON: None FINDINGS: LEFT FEMUR Two views show no evidence of an acute, displaced fracture or dislocation of the visualized bony architecture. Mild degenerative changes present in the left hip. IMPRESSION: No acute osseous abnormality. Reviewed, Interpreted and Dictated by Rhiannon Grover MD Transcribed by Maggy Mackey Authenticated and [facility]
--- NOTE | 2025-07-10 07:56 | CT_ITS ---
FINAL REPORT CLINICAL HISTORY: fall L hip pain COMPARISON: None FINDINGS: Axial images through the pelvis were performed by computed tomography. Sagittal and coronal reconstruction images were performed. This study was performed with techniques to keep radiation doses as low as reasonably achievable (ALARA). Individualized dose reduction techniques using automated exposure control or adjustment of mA and/or kV according to the patient's size were employed. No fracture is identified. No dislocation identified. Note is made of a bone island in the right pelvis. No significant degenerative changes identified. No soft tissue abnormality. IMPRESSION: No acute process. Reviewed, Interpreted and Dictated by Rhiannon Grover MD Transcribed by Maggy Mackey Authenticated and [facility]
--- NOTE | 2025-07-10 07:56 | XR_ITS ---
FINAL REPORT TECHNIQUE: 2 views left forearm CLINICAL HISTORY: fall prooximal pain COMPARISON: None FINDINGS: LEFT FOREARM: Two images of the left forearm were obtained. There is no evidence of fracture or dislocation. The joint spaces are intact. There is no soft tissue abnormality identified. IMPRESSION: No acute bony abnormality. Reviewed, Interpreted and Dictated by Rhiannon Grover MD Transcribed by Maggy Mackey Authenticated and [facility]
--- NOTE | 2025-07-10 07:56 | CT_ITS ---
FINAL REPORT TECHNIQUE: Thin section axial CT with sagittal reconstruction without contrast This study was performed with techniques to keep radiation doses as low as reasonably achievable, (ALARA). Individualized dose reduction techniques using automated exposure control or adjustment of mA and/or kV according to the patient's size were employed. CLINICAL HISTORY: fall midline pain COMPARISON: 06/21/2025 FINDINGS: CERVICAL SPINE: There has been a prior surgical fusion performed at the C5-6 level, also seen on the prior exam of 06/21/2025. No fracture is seen. Alignment is normal. No obvious bony spinal canal stenosis is present. Multilevel degenerative disc disease is present, similar to the prior exam. IMPRESSION: No fracture or malalignment Reviewed, Interpreted and Dictated by Rhiannon Grover MD Transcribed by Maggy Mackey Authenticated and . [facility]
[2025-07-10 07:57] VITALS: BP 174/107; PULSE 80; RESP 15; TEMP 36.9; O2SAT 98; BMI 23.3
--- NOTE | 2025-07-10 08:01 | HMH.EDGENADL ---
Discharge Plan Disposition Patient Disposition: Home, Self-Care Prescriptions Prescriptions: New methocarbamol 500 mg tablet 1,000 mg PO Q8H PRN (Reason: muscle pain and spasm) Qty: 30 0RF No Action guaifenesin 600 mg tablet extended release 12hr 600 mg PO DAILY Qty: 90 2RF naloxone [Narcan] 4 mg/actuation spray,non-aerosol 4 mg intranasal Q3M PRN (Reason: opioid overdose) Qty: 2 2RF Rx Instructions: spray 1 dose into ONE nostril; alternate nostrils w each dose until help arrives lidocaine 4 % adhesive patch,medicated topical albuterol sulfate [Ventolin HFA] 90 mcg/actuation HFA aerosol inhaler 2 puff inhalation Q6H PRN (Reason: shortness of breath or wheezing) Qty: 8.5 2RF sennosides [senna] 8.6 mg tablet 8.6 mg PO .COMPLEX PRN (Reason: constipation) Qty: 30 2RF Rx Instructions: 8.6 mg orally PRN; levothyroxine 50 mcg tablet See Rx Instructions .ROUTE .COMPLEX Qty: 90 0RF Dose Instruction: TAKE 1 TABLET BY MOUTH ONCE DAILY Rx Instructions: TAKE 1 TABLET BY MOUTH ONCE DAILY bupropion HCl 300 mg tablet extended release 24 hr See Rx Instructions .ROUTE .COMPLEX Qty: 90 1RF Dose Instruction: TAKE ONE (1) TABLET BY MOUTH ONCE DAILY Rx Instructions: TAKE ONE (1) TABLET BY MOUTH ONCE DAILY polyethylene glycol 3350 [Miralax] 17 gram/dose powder 17 g PO DAILY Qty: 510 0RF oxycodone-acetaminophen 7.5-325 mg tablet 1 tab PO TID ondansetron 4 mg tablet,disintegrating 4 mg PO Q8H PRN (Reason: nausea and vomiting) 5 Days Qty: 10 0RF valacyclovir [Valtrex] 1 gram tablet 1,000 mg PO DAILY PRN (Reason: herpes) venlafaxine 150 mg capsule,extended release 24hr 150 mg PO DAILY Rx Instructions: TAKE ONE CAPSULE BY MOUTH ONCE A DAY fenofibrate nanocrystallized 145 mg tablet 145 mg PO DAILY Rx Instructions: TAKE ONE TABLET BY MOUTH ONCE A DAY Referrals Follow up/Referrals: Regan Navarrete APRN [Primary Care Provider, Family Practice] - See instructions Activity Restrictions/Add. Instructions Additional Instructions/Restrictions: At this time it was felt you are safe to be discharged home. If new or worsening symptoms please do not hesitate to return the emergency department. Please take your medication as prescribed. Clinical Impressions Clinical Impression: Fall, Wound, open, forearm Print Language Print Language: Angolan Discharge ED Provider: Horace Molina General Adult HPI General Chief complaint: Fall Stated complaint: Fall Time Seen by Provider: 07/10/25 07:55 Mode of Arrival: EMS Source of Information: Patient Description of Symptoms (Recalled from ER Triage Doc. by RN): patient states she was in garage fixing to put wood in fireplace when she fell landing on left side, has left hip pain. left arm pain, she has a laceration left arm. denies hitting head, denies loc. not on blood thinners History of Present Illness HPI narrative: Patient is 64-year-old female past medical history of hypertension hyperlipidemia presents emergency department for evaluation of traumatic injury sustained in a fall. History is obtained by patient at bedside. She was in her garage putting firewood in the stove when she tripped and suffered a mechanical fall striking her left distal forearm, left hip. No loss of consciousness. She is currently complaining of left forearm pain, left hip pain, neck pain that is midline. No pain over the remainder of the back, chest, abdomen, other extremities. Tdap is not up-to-date. She does have a cut over her proximal posterior forearm that was noticed by EMS. No other acute complaints at this time. Please note that above description of symptoms, in this electronic medical record under categorization of recalled from ER triage doctor by RN are reflective of an initial nursing assessment, however, is not reflective of my full history and physical exam that was personally taken and clarified. Consequentially, this preceding description of symptoms, which may include the patient's categorized chief complaint in the EMR, do not reflect my personal clinical impression, and the ultimate description of history of present illness and patient stated complaints should be deferred to this section of the note. Unless stated otherwise or congruent with this section of the note, additional signs, symptoms, or incongruence should be interpreted as inaccurate with my clinical impression. Related Data Home Medications ?Medication ?Instructions ?Recorded ?Confirmed oxycodone-acetaminophen 7.5 mg-325 1 tab PO TID 06/09/24 07/03/25 mg tablet fenofibrate nanocrystallized 145 145 mg PO DAILY 01/29/25 07/03/25 mg tablet valacyclovir 1 gram tablet 1,000 mg PO DAILY PRN herpes 01/29/25 07/03/25 (Valtrex) venlafaxine 150 mg 150 mg PO DAILY 01/29/25 07/03/25 capsule,extended release 24 hr lidocaine 4 % topical patch patch topical 05/02/25 07/03/25 Previous Rx's ?Medication ?Instructions ?Recorded polyethylene glycol 3350 17 17 g PO DAILY #510 grams 06/12/24 gram/dose oral powder (Miralax) guaifenesin 600 mg tablet, 600 mg PO DAILY #90 tabs 10/31/24 extended release 12 hr ondansetron 4 mg disintegrating 4 mg PO Q8H PRN nausea and 01/20/25 tablet vomiting 5 days #10 tabs naloxone 4 mg/actuation nasal 4 mg intranasal Q3M PRN opioid 02/06/25 spray (Narcan) overdose #2 ea sennosides 8.6 mg tablet (senna) 8.6 mg PO .COMPLEX PRN 04/18/25 constipation #30 ea albuterol sulfate 90 mcg/actuation 2 puff inhalation Q6H PRN 05/02/25 aerosol inhaler (Ventolin HFA) shortness of breath or wheezing #8.5 grams levothyroxine 50 mcg tablet See Rx Instructions .Route 05/15/25 .COMPLEX #90 tabs bupropion HCl 300 mg 24 hr tablet, See Rx Instructions .Route 07/09/25 extended release .COMPLEX #90 tabs methocarbamol 500 mg tablet 1,000 mg (2 x 500 mg) PO Q8H PRN 07/10/25 muscle pain and spasm #30 tabs Allergies Allergy/AdvReac Type Severity Reaction Status Date / Time loratadine Allergy Mild Agression Verified 07/03/25 14:53 calamine Allergy Rash Verified 07/03/25 14:53 meloxicam (From Mobic) Allergy RESTLESS Verified 07/03/25 14:53 LEGS, NAUSEA Corticosteroids AdvReac Intermediate AGGRESION Verified 07/03/25 14:53 (Glucocorticoids) (steroids) Antihistamines - Alkylamine AdvReac Mild MANIC Verified 07/03/25 14:53 aripiprazole (From Abilify) AdvReac Mild AGRESSION Verified 07/03/25 14:53 bacitracin (From Neosporin AdvReac Mild MORE RED, Verified 07/03/25 14:53 ([id number])) IRRITATED brexpiprazole (From Rexulti) AdvReac Mild AGRESSIVE Verified 07/03/25 14:53 buspirone (From BuSpar) AdvReac Mild AGRESSIVE Verified 07/03/25 14:53 cariprazine (From Vraylar) AdvReac Mild HIGH ENERGY Verified 07/03/25 14:53 celecoxib (From Celebrex) AdvReac Mild Headache Verified 07/03/25 14:53 chlordiazepoxide (From AdvReac Mild SHAKES Verified 07/03/25 14:53 Librium) chlorpromazine (From AdvReac Mild MANIC Verified 07/03/25 14:53 Thorazine) clomipramine (From Anafranil) AdvReac Mild RLS Verified 07/03/25 14:53 clonazepam (From Klonopin) AdvReac Mild HIGH ENERGY Verified 07/03/25 14:53 codeine AdvReac Mild Anaphylaxis Verified 07/03/25 14:53 cyclobenzaprine (From AdvReac Mild RLS Verified 07/03/25 14:53 Flexeril) desipramine (From Norpramin) AdvReac Mild RLS Verified 07/03/25 14:53 desvenlafaxine (From Pristiq) AdvReac Mild AGRESIVE Verified 07/03/25 14:53 dexmedetomidine AdvReac Mild RLS Verified 07/03/25 14:53 divalproex sodium (From AdvReac Mild HEADACHE, Verified 07/03/25 14:53 Depakote) SWELLING duloxetine (From Cymbalta) AdvReac Mild AGRESSIVE Verified 07/03/25 14:53 eszopiclone (From Lunesta) AdvReac Mild NOT Verified 07/03/25 14:53 AFFECTIVE fluoxetine (From Prozac) AdvReac Mild MANIC Verified 07/03/25 14:53 hydrocodone (From Vicodin) AdvReac Mild ITCHING Verified 07/03/25 14:53 ibuprofen AdvReac Mild RLS Verified 07/03/25 14:53 lorazepam (From Ativan) AdvReac Mild RLS Verified 07/03/25 14:53 lurasidone (From Latuda) AdvReac Mild HYPER Verified 07/03/25 14:53 meperidine (From Demerol) AdvReac Mild RLS Verified 07/03/25 14:53 mirtazapine (From Remeron) AdvReac Mild RLS Verified 07/03/25 14:53 morphine AdvReac Mild Anaphylaxis Verified 07/03/25 14:53 neomycin (From Neosporin AdvReac Mild REDNESS Verified 07/03/25 14:53 ([id number])) paroxetine (From Paxil) AdvReac Mild RLS Verified 07/03/25 14:53 perphenazine (From Trilafon) AdvReac Mild RLS Verified 07/03/25 14:53 polymyxin B (From Neosporin AdvReac Mild REDNESS Verified 07/03/25 14:53 ([id number])) propranolol (From Inderal [place]) AdvReac Mild RLS Verified 07/03/25 14:53 quetiapine (From Seroquel) AdvReac Mild MANIC Verified 07/03/25 14:53 risperidone (From Risperdal) AdvReac Mild AGRESSIVE Verified 07/03/25 14:53 temazepam (From Restoril) AdvReac Mild HYPER Verified 07/03/25 14:53 topiramate (From Topamax) AdvReac Mild RLS Verified 07/03/25 14:53 tramadol (From Ultram) AdvReac Mild HYPER Verified 07/03/25 14:53 vortioxetine (From AdvReac Mild HYPER Verified 07/03/25 14:53 Trintellix) ziprasidone (From Geodon) AdvReac Mild HYPER Verified 07/03/25 14:53 zolpidem (From Ambien) AdvReac Mild HYPER Verified 07/03/25 14:53 acetaminophen (From Vicodin) AdvReac Hallucinati Verified 07/03/25 14:53 [facility] Disclaimer: The information contained in this section may have been updated after the patient was seen, as this information can be updated by other users. Medical History Homicidal ideation Suicidal ideation History of anoxic brain injury Apparently associated with amitriptyline overdose in 1993, details unknown Stroke Postmenopausal bleeding Constipation Constipation Low back pain Herpes genitalis in women Falls Hx of falls related to CVA weakness, drop foot Imbalance Reports intermittent imbalance throughout her life span, multiple falls, some with injuries History of cocaine use Younger days Peroneal tendinitis, left leg Left-sided weakness History of stroke Apparently associated with amitriptyline overdose in 1993, details unknown Primary osteoarthritis of right knee Acute pain of right knee Left foot pain Patient new to facility Asthma Dyspnea on exertion History of multiple strokes Frequent falls Hyperlipemia Sjogrens syndrome Muscle spasm Dystonia Surgical History History of foot surgery History of left oophorectomy History of endometrial ablation H/O cervical spine surgery H/O hernia repair History of tonsillectomy Hx of appendectomy History of cholecystectomy History of arthroplasty of left ankle Family History Other Cancer Coronary artery disease Diabetes FHx: mental illness Hypertension Substance abuse Thyroid disorder Social History Smoking Status: Never smoker alcohol intake: former substance use type: denies use, former substance user, marijuana, crack/cocaine, opiates and prescription drug current occupational status: disabled Travel in the last 8 weeks?: None household members: significant other housing: house marital status: Have you lived/traveled outside US in past 30 days?: No Contact w/someone who lives/traveled outside US past 30 days?: No Exposure to someone with infectious disease in past 14 days?: No Do you have a fever (greater than 100.4 F or 38 C)?: No Have you tested positive for COVID-19?: No Exposed to someone with COVID-19 in past 14 days?: No Do you have a sore throat?: No Do you have a cough?: No Do you have any weakness?: No Do you have any diarrhea?: No Are you experiencing any unusual bleeding?: No Do you have any muscle aches/pain?: No Do you have any abdominal pain?: No Are you experiencing loss of taste or smell?: No Other Medical History Have you received the Flu Vaccine for this season: No Have you received the Pneumonia Vaccine: Yes ROS Obtained: Yes Systems reviewed as appropriate & no additional complaints except as documented Physical Exam General General appearance: alert and in no apparent distress Head Head exam: atraumatic and normocephalic Eye Eye exam: Present PERRL and EOMI ENT ENT exam: Present mucous membranes moist Neck Neck exam: Present normal inspection and tenderness (Midline) Chest Chest inspection: Present normal inspection and symmetric chest wall rise Respiratory Respiratory exam: Present normal lung sounds bilaterally; Absent respiratory distress Cardiovascular Cardiovascular exam: Present regular rate and normal rhythm Abdominal Exam Abdominal exam: Present soft; Absent tenderness Extremities Exam Extremities exam: Present tenderness (Left forearm, left hip, no tenderness over the manger of the extremities. Extensor mechanism intact BLE) and other (10 cm curvilinear laceration that is hemostatic over the posterior forearm adjacent to the elbow but does not cross the joint with an adjacent abrasion that is hemostatic. Tenderness over the proximal forearm and left hip) Neurological Exam Neurological exam: Present alert; Absent motor sensory deficit Psychiatric Psychiatric exam: Present normal affect Skin Skin exam: Present warm and dry Medical Decision Making Medical Records Screening: Per USPSTF and CDC recommendations, given the prevalence of disease in our region, it is our hospital?s policy to screen for HIV and viral Hepatitis for all patients aged 18 and over and those with ongoing risk factors. [place] Inquiry Pt receiving controlled substance: No Vital Signs: 07/10/25 07:57 Temperature 98.4 F Temperature Source Oral Pulse Rate [Right Radial] 80 Respiratory Rate 15 Blood Pressure [Right Arm] 174/107 H Blood Pressure Mean [Right Arm] 129 Blood Pressure Source [Right Arm] Automatic Cuff Blood Pressure Position [Right Arm] Supine 02 Sat by Pulse Oximetry 98 Oxygen Delivery Method Room Air Orders (Tests/Meds): ED MEDICATIONS Discontinued Medications Generic Name Dose Route Start Last Admin Trade Name Freq PRN Reason Stop Dose Admin Bacitracin 1 each 07/10/25 09:12 07/10/25 09:22 Bacitracin Oint 0.9gm Udp TP 07/10/25 09:13 1 each ONCE ONE Administration Methocarbamol 1,000 mg 07/10/25 07:58 07/10/25 08:27 Methocarbamol 500mg Tablet PO 07/10/25 07:59 1,000 mg ONCE ONE Administration Ondansetron HCl 4 mg 07/10/25 07:57 07/10/25 08:26 Ondansetron 4mg/2ml Vial IV 07/10/25 07:58 4 mg ONCE ONE Administration Tetanus/Reduced Diphtheria/Acell Pertussis 0.5 ml 07/10/25 08:08 11/11/25 08:27 Tet/Diphth/Pert-Adult 0.5ml Syringe IM 07/10/25 08:09 0.5 ml .ONCE ONE Administration ORDERS Category Date Time Status CT bony pelvis Stat Cat Scan 07/10/25 07:[address] cervical spine wo con Stat Cat Scan 07/10/25 07:[address] head/brain wo con Stat Cat Scan 07/10/25 07:56 Completed Femur XR left 2 views [XR femur LT 2V] Stat Exams 07/10/25 07:56 Completed Forearm XR left 2 views [XR forearm LT 2V] Stat Exams 07/10/25 07:56 Completed HIV Combo Stat Lab 07/10/25 08:00 Received Hepatitis C Ab Qual. W/ RFX Stat Lab 07/10/25 08:00 Received Medical Decision Narrative: In summary patient is 64-year-old female with past medical history described above presents emergency department for evaluation of traumatic injury sustained in a fall. Patient is hemodynamically stable and nontoxic-appearing upon arrival, afebrile. Based on history and physical exam fall is mechanical in nature and trauma survey will be conducted with noncontrasted CT scan of the head and cervical spine, CT bony pelvis, plain film of the left hip and forearm. Initial inventions include methocarbamol, Zofran, will work on more aggressive pain control however patient has extensive allergies. Tdap will be updated but she is not allowed to have 1 made from blood products . I discussed the case with pharmacy, they think she is referring to Tdap versus tetanus immunoglobulin. Tdap is not derived from blood products will proceed with administration. Noncontrasted CT scan of the head informally visualized by me no acute large intra-axial hemorrhage with midline shift. Trauma survey imaging negative for acute traumatic pathology. Arm underwent wound care, patient was amatory at bedside and is appropriate for outpatient management at this time will be discharged with a course of methocarbamol. Procedure: Procedure performed was definitive wound care. Procedure performed by Horace Molina and [employer]. Wound over the left posterior forearm was cleaned with Hibiclens and sterile water. Steri-Strips were placed over the wound bed and orthogonal angle and secured in place with Dermabond. Bacitracin applied to the abrasion at the elbow. Patient tolerated the procedure well there were no immediate complications. Critical Care Critical Care Time Critical Care Time: No
--- OUTSIDE RECORDS SUMMARY | 2025-07-10 08:10 | XMS_ITS | Patient Health Record ---
Author Organization [facility] Address [address] [place] [address] [address] [place] [address] Care Team Providers Care Flour Tester Name Role Phone Jaelyn Guerrero Unavailable Unavailable [...] Status Risk Notes Problem Chronic pain syndrome (077060913) Chronic pain syndrome (G89.4) Active confirmed Problem Complex regional pain syndrome type I of right lower limb (disorder) (08753610525853 9) Complex regional pain syndrome I of right lower limb (G90.521) Active confirmed Problem Complex regional pain syndrome of lower limb (disorder) (994957936) Complex regional pain syndrome I of unspecified lower limb (G90.529) Active confirmed Problem Post-laminectom y syndrome (49295675) Postlaminectomy syndrome, not elsewhere classified (M96.1) Active confirmed Problem Long-term current use of drug therapy (603405049) 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 therapy (Z79.899) Active confirmed Problem Lumbar spondylosis (851688657) lumbar spondylosis (M47.816) Active confirmed Problem Cervical spondylosis (321641161) cervical spondylosis (M47.812) Active confirmed Plan Of Treatment Pending Test Test Name Order Date Urine Test LCMS Definitive 08/16/2023 Insurance Providers Payer Name Payer Address Payer Phone Subscriber Number Group Number Insured Name Patient Relationship to Insured Coverage Start Date Coverage End Date [place] Medicaid [address] [place] [phone] [id number] Diamond Damon Self - patient is the insured 9 Medical (General) History Medical History History ICD Code anxiety-/Jaelyn Renteria CRIMINAL INVESTIGATIVE AGENT asthma-1979/Jaelyn Renteria CRIMINAL INVESTIGATIVE AGENT bipolar disorder-1993/Jaelyn Renteria CRIMINAL INVESTIGATIVE AGENT COPD-1979/Jaelyn Renteria CRIMINAL INVESTIGATIVE AGENT fibromyalgia-1989/Jaelyn Godkelley CRIMINAL INVESTIGATIVE AGENT depression-/Jaelyn Renteria CRIMINAL INVESTIGATIVE AGENT [id number] an issue/Jaelyn Martinez odkelley CRIMINAL INVESTIGATIVE AGENT Stroke-1993/Jaleyn Renteria CRIMINAL INVESTIGATIVE AGENT Hypothyroidism-1979/Jaelyn Renteria CRIMINAL INVESTIGATIVE AGENT [id number]/Jaelyn Renteria CRIMINAL INVESTIGATIVE AGENT Degenerative disc disease-1999/Jaelyn Go dby CRIMINAL INVESTIGATIVE AGENT Surgical History Surgery Date(Month/Year) Left ankle surgery x2/ [facility] / with a 3 day stay 1999 Appendectomy/ [facility] / overnigh t stay 2003 Cholecystectomy/ [facility] / overn ight stay 2002 LT Hand Surgery x2/ [facility] / wi th a 3 day stay 1976 Neck (cervical discetomy)Dr. Marc/ [facility] / over night stay 2005 RT Shoulder / [facility] / (OP) 198 2 Tonsillectomy/ [facility] / (OP) 19 66 Tubal abdominal ligation / in [place] / (O P) 1981 Bladder lift / [facility] / Dr. Daniel Crawford / (OP) 2005 [place] Cyst Rupture/ [facility] A Elvis in [facility] / with a 3-4 day stay 1987 oophorectomy (left)/ [facility] / ( OP) 2005 [place] teeth/ Dr. Hess / (OP) 1976 Hernia repair / [facility] / (OP) 03/14/2021 Hospitalization History Reason Date(Month/Year) Bowel obstruction / [facility] / treated and rel eased 02/2021
--- OUTSIDE RECORDS SUMMARY | 2025-07-10 08:10 | XMS_ITS | Encounter Summary ---
Author Organization [facility] Address [address] [place] [address] Care Team Providers Care Four Slide Machine Operator Name Role Phone Red Tamayo MD Primary Care Provider [phone]- [phone] Encounter Details Date Type Department Care Team (Late st Contact Info) Description 09/07/2017 Telephone [facility] [address] [id number] Kamlesh Abdullahi MD [address] [address] Social History Tobacco Use Types [...] documented as of this encounter Care Teams Four Slide Machine Operator Relationship Specialty Start Date End Date Red Tamayo MD [address] [place] [address] PCP - General Pain Medicine 12/29/23 documented as of this encounter
--- OUTSIDE RECORDS SUMMARY | 2025-07-10 08:10 | XMS_ITS | Clinical Summary ---
Author Organization [facility] Address [address] [place] [address] Care Team Providers Care Painter And Body Work Name Role Phone Red Tamayo MD Primary Care Provider [phone]- [phone] Allergies Active Allergy Reactions Criticality Noted Date [...] 11/23/19 Active Narcan 4 MG/0.1ML nasal spray [place] Nasal Use as directed in case of overdose 08/20/20 Active vitamin D (ERGOCALCIFEROL) 1.25 MG (69997 UT) capsule capsule Take 1 capsule by [...] mammogram report. [place]. [address] NOTE: If a biopsy is performed on [...] distortion or clustered microcalcifications. us Shannon Campbell MANAGER HARB[employer] IMG MAMMOGRAPHY ORDERABL ES Final Result * Hepatitis panel, acute (08/06/2017 9:40 AM EST) Pathologist [facility] Hep A IgM Negative Negative [...] with a HCV Nucleic Acid Amplification test (956566). Blood Venipuncture / Unknown 08/06/2017 9:40 AM EST 08/06/2017 10:11 AM EST Narrative [facility] - 08/10/2017 5:11 AM EST Performed at: - [address] [id number] Professor Of Family Medicine: Costa Munoz PhD, Phone: [phone] Kamlesh Abdullahi MD LAB BLOOD ORDERABLES Final Re sult [facility] [address] [place] [id number], * (ABNORMAL) Lipid Panel (08/06/2017 9:40 AM EST) [facility] Total Cholesterol 234(H) 0 - 199 mg/dL 08/06/2017 10:31 AM EST [facility] Triglycerides 97 <150 mg/dL 08/06/2017 10:31 AM EST [facility] HDL Cholesterol 61(H) 40 - 60 mg/dL 08/06/2017 10:31 AM EST [facility] LDL Cholesterol 154(H) 0 - 99 mg/dL 08/06/2017 10:31 AM EST [facility] VLDL Cholesterol 19.4 mg/dL 08/06/20 17 10:31 AM EST [facility] LDL/HDL Ratio 2.52 08/06/2017 10:31 AM EST [facility] Blood Venipuncture / Unknown 08/06/2017 9:40 AM EST 08/06/2017 10:11 AM EST Narrative [facility] - 08/06/2017 10:31 AM EST Reference ranges for triglycerides, VLDL cholesterol, LDL cholesterol, and HDL cholesterol are not true population normal ranges but are threshold levels for increased risk of coronary artery disease established by ATP III guidelines from the National Cholesterol Education Program. us Kamlesh Abdullahi MD LAB BLOOD ORDERABLES Final Re sult [facility]
[address] [place] [address], from Last 3 Months or Most Recently Relevant to Health Maintenance Additional Health Concerns Infection Onset Date Last Indicated COVID (History) 03/11/2021 03/11/2021 Insurance MEDICAID [place] Advance Directives Documents on File Type Date Recorded Patient Supervisor Assembly And Packing Expl anation PATIENT ADVANCE DIRECTIVES - SCAN 03/17/2023 3:46 PM PATIENT ADVANCE DIRECTIVES, BHOWEN, 06/13/2017 PATIENT ADVANCE DIRECTIVES - SCAN 03/17/2022 12:56 PM ADVANCE DIRECTIVE PATIENT ADVANCE DIRECTIVES - SCAN 02/13/2022 10:35 AM ADVANCE DIRECTIVE PATIENT ADVANCE DIRECTIVES - SCAN 03/05/2021 10:34 AM PATIENT ADVANCE DIRECTIVE, BHOWEN, 06/13/2017 PATIENT ADVANCE DIRECTIVES - SCAN 11/27/2020 8:49 AM Care Teams Painter And Body Work Relationship Specialty Start Date End Date Red Tamayo MD [address] [place] [address] PCP - General Pain Medicine 12/29/23
--- OUTSIDE RECORDS SUMMARY | 2025-07-10 08:11 | XMS_ITS | Clinical Summary ---
Author Organization Healthcare Address [address] [place] [address] Care Team Providers Care Clinical Informatics Strategist Name Role Phone Pcp, No Primary Care [...] Screening 1960 [facility]-Medicare Annual Wellness (AWV) 1960 [facility]-Infant/Child/Adol SDOH Screenings 1960 [id number]-QMPNV-89 Vaccine (#1) 12/03/1964 [facility]- SDOH Screenings 12/03/1977 [...] Narrative SUNQUEST - 04/23/1997 12:00 AM EDT [facility] MR #: [id number] [facility] [place], [place] [address] 1960 (Age: 36) FW Collect Date: 04/17/1997 00:00 Receipt Date: 04/18/1997 00:00 Page 1 DEPARTMENT OF PATHOLOGY AND LABORATORY MEDICINE CYTOPATHOLOGY REPORT Email: [email or web address] [phone] * Converted Case * This report may not match the original report format ATTENDING MD/Practitioner: Mary Galan MD Service: [facility] PROGRAM ASSOCIATE Location: Reported: 04/23/1997 00:00 Collected: 04/17/1997 00:00 [...] results is suggested (please call Microbiology at [phone] for results). CLINICAL INFORMATION: Menstrual History: {Not Provided} Date of Last Menstrual Period: {Not Provided} SPECIMEN DESCRIPTION: A: THIN PREP(CERVICAL/ENDOCERVICAL)., THIN PREP PAP ICD: F: {Not Entered} SNOMED CODES: 1; G4N188.3 N25153 G00667 In cases where a pathologist has signed out the report, the service has been rendered in part by a resident. The signing pathologist has performed and is responsible for the reported pathologic evaluation. us Yumiko Galan MD LAB PATHOLOGY ORDERABLES Mi cornejo Result SUNQUEST from Last 3 Months or Most Recently Relevant to Health Maintenance Insurance MEDICAID-[place] AETNA MEDICARE Care Teams Clinical Informatics Strategist Relationship Specialty Start Date End Date Pcp, Alicia [address] [place] [address] PCP - General Family Medicine 02/01/25
--- OUTSIDE RECORDS SUMMARY | 2025-07-10 08:11 | XMS_ITS | Patient Health Record ---
Author Organization [facility] Address [address] [place] [address] Care Team Providers Care Regional Sales Trainer Name Role Phone Red Tamayo II Unavailable [phone] Jaelyn Guerrero Unavailable Unavailable Freeman Albarran Unavailable [phone] Allergies Allergen (clinical drug ingredient) Drug/Non Drug [...] Opiate (OPI) NEG Urine Test ANALYZER Reviewed date:06/08/2025 03:17:18 PM [...] Oxycodone (OXY) NEG Urine Test ANALYZER Reviewed date:04/27/2025 06:53:44 AM [...] Provider Speciality Pain Manag ement Referred Organization [facility] Referred Address [address] [place] [address],[address],[place] Referred Provider Specialty Neurological Surgery General Cricket Irizarry (Susannah),Elaine ty 08/02/2024 3:14:46 PM > Please contact the patient to schedule and fax confirmation of the scheduled appt to [phone]. If you need any additional information, please contact our office at [phone]. Thank You , Juan C (Susannah),Kenyatta 08/02/2024 3:30:35 PM > Faxed to facility, Margy Soria ([facility]) 09/18/2024 12:44:01 PM > Called [facility] and was advised this pt was scheduled for this on 10/10/24 but cx'd the appt due to transportation issues. Pt also no showed her last follow up with us and has not rescheduled. Closing referral but per [facility], she can reschedule whenever ready. Referral Priority Routine Medications Medication SIG (Take, Route, Frequency, Duration) Notes Start Date End Date Status acetaminophen-oxycodo ne 325 mg-7.5 mg 1 tab(s) orally 3 times a day; Duration: 28 days june 2025 RX DO NOT FILL SOONER THAN 28 DAYS, (OK TO FILL EARLY, ONLY IF CLOSED) Fax PA request to [phone] or [phone] Active SUMAtriptan 6 mg/0.5 mL as directed subcutaneously once 10/29/2022 Active venlafaxine 150 mg 1 cap(s) orally once a day; Duration: 30 day(s) 10/29/2022 Active levothyroxine 75 mcg (0.075 mg) 1 tab(s) orally once a day Active acetaminophen-oxycodo ne 325 mg-7.5 mg 1 tab(s) orally 3 times a day; Duration: 28 days july 2025 RXDO NOT FILL SOONER THAN 28 DAYS, (OK TO FILL EARLY, ONLY IF CLOSED) Active benzonatate 100 mg 1 cap(s) orally 3 times a day; Duration: 5 day(s) 10/20/2022 Active Lidocaine Pain Relief Patch 4% 1 PATCH applied topically once a day; Duration: 30 days On for 12 hours, then remove for 12 hours Active methocarbamol 500 mg 1 tab orally 3 time s a day; Duration: 30 days Active meclizine 25 mg [...] Status Risk Notes Problem Chronic pain syndrome (267504040) Chronic pain syndrome (G89.4) Active confirmed Problem Complex regional pain syndrome type I of right lower limb (disorder) (40506401259470 9) Complex regional pain syndrome I of right lower limb (G90.521) Active confirmed Problem Complex regional pain syndrome of lower limb (disorder) (883287892) Complex regional pain syndrome I of unspecified lower limb (G90.529) Active confirmed Problem Post-laminectom y syndrome (30859483) Postlaminectomy syndrome, not elsewhere classified (M96.1) Active confirmed Problem Long-term current use of drug therapy (522502462) Other shelter (current) drug therapy (Z79.899) Active confirmed Problem Lumbar spondylosis (750347665) lumbar spondylosis (M47.816) Active confirmed Problem Cervical spondylosis (019007390) cervical spondylosis (M47.812) Active confirmed Vital Signs Heart Rate 79 /min 07/04/2025 Blood pressure diastolic 76 mm Hg 07/04/2025 Height 65 in 07/04/2025 Blood pressure systolic 136 mm Hg 07/04/2025 Weight 144 lbs 07/04/2025 BMI 23.96 kg/m2 07/04/2025 Encounters Encounter Location Date Provider Diagnosis [facility] [address] [place] [address] 07/04/2025 Red Tamayo Other emt intermediate (current) drug therapy Z79.899 ; lumbar spondylosis M47.816 ; cervical spondylosis M47.812 ; Postlaminectomy syndrome, not elsewhere classified M96.1 and Complex regional pain syndrome I of right lower limb G90.521 [facility] [address] [place] [address] 07/24/2024 Red Tamayo Other shelter (current) drug therapy Z79.899 ; lumbar spondylosis M47.816 ; cervical spondylosis M47.812 ; Postlaminectomy syndrome, not elsewhere classified M96.1 and Complex regional pain syndrome I of right lower limb G90.521 [facility] [address] [place] [address] 09/26/2024 Red Tamayo Other emt intermediate (current) drug therapy Z79.899 ; lumbar spondylosis M47.816 ; cervical spondylosis M47.812 ; Postlaminectomy syndrome, not elsewhere classified M96.1 and Complex regional pain syndrome I of right lower limb G90.521 [facility] [address] [place] [address] 11/20/2024 Red Tamayo Other emt intermediate (current) drug therapy Z79.899 ; lumbar spondylosis M47.816 ; cervical spondylosis M47.812 ; Postlaminectomy syndrome, not elsewhere classified M96.1 and Complex regional pain syndrome I of right lower limb G90.521 [facility] [address] [place] [address] 01/30/2025 Red Tamayo Other emt intermediate (current) drug therapy Z79.899 ; lumbar spondylosis M47.816 ; cervical spondylosis M47.812 ; Postlaminectomy syndrome, not elsewhere classified M96.1 and Complex regional pain syndrome I of right lower limb G90.521 [facility] [address] [place] [address] 03/27/2025 Red Tamayo Other shelter (current) drug therapy Z79.899 ; lumbar spondylosis M47.816 ; cervical spondylosis M47.812 ; Postlaminectomy syndrome, not elsewhere classified M96.1 and Complex regional pain syndrome I of right lower limb G90.521 [facility] [address] [place] [address] 04/26/2025 Red Tamayo Other emt intermediate (current) drug therapy Z79.899 ; lumbar spondylosis M47.816 ; cervical spondylosis M47.812 ; Postlaminectomy syndrome, not elsewhere classified M96.1 and Complex regional pain syndrome I of right lower limb G90.521 [facility] [address] [place] [address] 06/08/2025 Red Tamayo Other emt intermediate (current) drug therapy Z79.899 ; lumbar spondylosis M47.816 ; cervical spondylosis M47.812 ; Postlaminectomy syndrome, not elsewhere classified M96.1 and Complex regional pain syndrome I of right lower limb G90.521 [facility] [address] [place] [address] 07/04/2025 Red Tamayo Other shelter (current) drug therapy Z79.899 [facility] [address] [place] [address] 07/24/2024 Red Tamayo Other shelter (current) drug therapy Z79.899 [facility] [address] [place] [address] 08/02/2024 Red Tamayo [facility] [address] [place] [address] 09/26/2024 Red Tamayo Other shelter (current) drug therapy Z79.899 [facility] [address] [place] [address] 11/20/2024 Red Tamayo Other emt intermediate (current) drug therapy Z79.899 [facility] [address] [place] [address] 12/01/2024 Red Tamayo [facility] [address] [place] [address] 01/30/2025 Red Tamayo Other shelter (current) drug therapy Z79.899 [facility] [address] [place] [address] 02/04/2025 Red Tamayo [facility] [address] [place] [address] 03/27/2025 Red Tamayo Other emt intermediate (current) drug therapy Z79.899 [facility] [address] [place] [address] 03/28/2025 Red Tamayo [facility] [address] [place] [address] 04/26/2025 Red Tamayo Other emt intermediate (current) drug therapy Z79.899 [facility] [address] [place] [address] 06/08/2025 Red Tamayo Other emt intermediate (current) drug therapy Z79.899 [facility] [address] [place] [address] 06/15/2025 Red Tamayo Other shelter (current) drug therapy Z79.899 [facility] [address] [place] [address] 06/18/2025 Red Tamayo Assessments Encounter Date Diagnosis (ICD Code) Assessment Notes Treatment Notes Treatment Clinical Notes Section Notes 07/24/2024 Other emt intermediate (current) drug therapy (ICD-10 - Z79.899) [...] risk assessment is low. f/u 2 months 02RKD23 - Patient with chronic LBP with radicular [...] validate a good response prior to implant. 96WYG24 - Patient presents today to discuss further [...] risk assessment is low. f/u 2 months 93KVL89 - Patient with chronic LBP with radicular [...] validate a good response prior to implant. 62WCA54 - Patient presents today to discuss further [...] her back and radicular pain. 07/24/2024 Other shelter (current) drug therapy (ICD-10 - Z79.899) 09/26/2024 Other shelter (current) drug therapy (ICD-10 - Z79.899) 09/26/2024 [...] refilled and f/u 2 months. 11/20/2024 Other shelter (current) drug therapy (ICD-10 - Z79.899) 11/20/2024 [...] refilled and f/u 2 months. 09/26/2024 Other emt intermediate (current) drug therapy (ICD-10 - Z79.899) 01/30/2025 Other emt intermediate (current) drug therapy (ICD-10 - Z79.899) 01/30/2025 [...] months, or sooner if needed. 01/30/2025 Other shelter (current) drug therapy (ICD-10 - Z79.899) 03/27/2025 Other shelter (current) drug therapy (ICD-10 - Z79.899) 03/27/2025 [...] Opioid risk assessment is low. 03/27/2025 Other emt intermediate (current) drug therapy (ICD-10 - Z79.899) 04/26/2025 Other shelter (current) drug therapy (ICD-10 - Z79.899) 04/26/2025 1. Refill percocet 7.5/325mg TID 2. Refill tizanidine 4mg TID 3. Refill Lidocaine patch daily as directed 4. Order TENS unit 5. Follow up in 2 months 03/27/2025 Ms. Damno is a 64 year-old with complaints chronic [...] reviewed. Opioid risk assessment is low. 06/08/2025 Other shelter (current) drug therapy (ICD-10 - Z79.899) June [...] were reviewed. Opioid risk assessment is low. 45GDK56 - Patient with increased spasms to her [...] unit for her chronic back pain. 06/08/2025 Other shelter (current) drug therapy (ICD-10 - Z79.899) 06/15/2025 Other emt intermediate (current) drug therapy (ICD-10 - Z79.899) 07/04/2025 Other emt intermediate (current) drug therapy (ICD-10 - Z79.899) June [...] were reviewed. Opioid risk assessment is low. 52UCZ45 - Patient with increased spasms to her [...] unit for her chronic back pain. 07/04/2025 Other shelter (current) drug therapy (ICD-10 - Z79.899) 11/20/2024 Other shelter (current) drug therapy (ICD-10 - Z79.899) 04/26/2025 Other emt intermediate (current) drug therapy (ICD-10 - Z79.899) 07/04/2025 lumbar spondylosis (ICD-10 - M47.816) 03/27/2025 [...] were reviewed. Opioid risk assessment is low. 15HSM85 - Patient with increased spasms to her [...] were reviewed. Opioid risk assessment is low. 08MWF85 - Patient with increased spasms to her [...] unit for her chronic back pain. 04/26/2025 lumbar spondylosis (ICD-10 - M47.816) 03/27/2025 [...] risk assessment is low. f/u 2 months 32BNS08 - Patient with chronic LBP with radicular [...] validate a good response prior to implant. 82OZG42 - Patient presents today to discuss further [...] for her back and radicular pain. 07/24/2024 Postlaminectomy syndrome, not elsewhere classified (ICD-10 [...] risk assessment is low. f/u 2 months 77MJT37 - Patient with chronic LBP with radicular [...] validate a good response prior to implant. 43HQN28 - Patient presents today to discuss further [...] two months, or sooner if needed. 11/20/2024 Postlaminectomy syndrome, not elsewhere classified (ICD-10 [...] Meds refilled and f/u 2 months. 03/27/2025 cervical spondylosis (ICD-10 - M47.812) 03/27/2025 [...] reviewed. Opioid risk assessment is low. 06/08/2025 cervical spondylosis (ICD-10 - M47.812) 03/27/2025 [...] were reviewed. Opioid risk assessment is low. 06ENV99 - Patient with increased spasms to her [...] were reviewed. Opioid risk assessment is low. 54WQP47 - Patient with increased spasms to her [...] were reviewed. Opioid risk assessment is low. 47FHD26 - Patient with increased spasms to her [...] TENS unit for her chronic back pain. 03/27/2025 Postlaminectomy syndrome, not elsewhere classified (ICD-10 [...] were reviewed. Opioid risk assessment is low. 37EDH61 - Patient with increased spasms to her [...] TENS unit for her chronic back pain. 01/30/2025 Postlaminectomy syndrome, not elsewhere classified (ICD-10 [...] risk assessment is low. f/u 2 months 41NTU71 - Patient with chronic LBP with radicular [...] validate a good response prior to implant. 52SSR63 - Patient presents today to discuss further [...] assessment for her back and radicular pain. 03/27/2025 Complex regional pain syndrome I of [...] lower limb (ICD-10 - G90.521) 11/20/2024 Ms. Dmaon returns today for office visit and medication [...] in two months, or sooner if needed. 06/08/2025 Complex regional pain syndrome I of [...] were reviewed. Opioid risk assessment is low. 35AIQ57 - Patient with increased spasms to her [...] were reviewed. Opioid risk assessment is low. 07/04/2025 Complex regional pain syndrome I of [...] were reviewed. Opioid risk assessment is low. 85QMZ66 - Patient with increased spasms to her [...] TENS unit for her chronic back pain. 09/14/2024 11/29/23 Ms. Damon returns today for [...] risk assessment is low. f/u 2 months 18RMS87 - Patient with chronic LBP with radicular [...] validate a good response prior to implant. 78ZJJ36 - Patient presents today to discuss further [...] risk assessment is low. f/u 2 months 69KXX23 - Patient with chronic LBP with radicular [...] validate a good response prior to implant. 35MHH25 - Patient presents today to discuss further [...] risk assessment is low. f/u 2 months 63LCH26 - Patient with chronic LBP with radicular [...] validate a good response prior to implant. 58XOF34 - Patient presents today to discuss further [...] Order Date Urine Test LCMS Definitive 01/30/2025 Urine Test LCMS Definitive 07/04/2025 Next Appt Details Provider Name:Red Gagnon Kai cooney, 08/31/2025 02:45:00 PM, [address], [address], [place], [address], Insurance Providers Payer Name Payer Address Payer Phone Subscriber Number Group Number Insured Name Patient Relationship to Insured Coverage Start Date Coverage End Date [employer] Medicare [address] [place] [phone] [id number] Marisol Diamond Self - patient is the insured 5 [place] [address] [place] [address] [id number] Marisol Diamond Self - patient is the insured 9 [...] Jaelyn Renteria APRN Surgical History Surgery Date(Month/Year) Neck (cervical discetomy)Dr. [facility] / over night stay 2004 Hernia repair / [facility] / (OP) 03/14/2021 [place] teeth/ Dr. Hess / (OP) 1976 oophorectomy (left)/ [facility] / ( OP) 2005 [place] Cyst Rupture/ Kenyatta A Elvis in [facility] / with a 3-4 day stay 1987 Bladder lift / [facility] / Dr. Daniel Crawford / (OP) 2005 Tubal abdominal ligation / in [place] / (O P) 1981 Tonsillectomy/ [facility] / (OP) 19 66 RT Shoulder / [facility] / (OP) 198 2 LT Hand Surgery x2/ [facility] / wi th a 3 day stay 1976 Cholecystectomy/ [facility] / overn ight stay 2002 Appendectomy/ [facility] / overnigh t stay 2003 Left ankle surgery x2/ [facility] / with a 3 day stay 1999 Hospitalization History Reason Date(Month/Year) Coughing/ [facility]/1 day stay 01/2025 Bowel obstruction / [facility] / treated and rel eased 02/2021
[2025-07-10] MEDS: ONDANSETRON 4MG/2ML VIAL 4 MG IV (08:26)
[2025-07-10] MEDS: METHOCARBAMOL 500MG TABLET 1000 MG PO (08:27)
[2025-07-10] MEDS: TET/DIPHTH/PERT-ADULT 0.5ML SYRINGE 0.5 ML IM (08:27)
[2025-07-10 08:30] VITALS: PULSE 78; O2SAT 98
[2025-07-10 09:00] VITALS: BP 143/96; PULSE 78; RESP 14; O2SAT 97
[2025-07-10 09:16] VITALS: BP 158/97; PULSE 78; O2SAT 98
[2025-07-10] MEDS: BACITRACIN OINT 0.9GM UDP 1 EACH TP (09:22)
--- NOTE | 2025-07-10 09:33 | PC.NURSE ---
Pt returned to her room from the bathroom. I offered a refreshment, she declined. No needs voiced. No new complaints. Call [facility] in reach.
[2025-07-10 09:36] VITALS: BP 150/85; PULSE 84; RESP 16; TEMP 36.9; O2SAT 99
[2025-07-10 10:23] LABS: Hepatitis C Ab Qual. W/ RFX NEGATIVE (Negative)
== END 2025-07-10 09:41 | disposition home or self-care (01) ==
PROVIDERS: Emergency Provider Emergency Medicine; PCP Nurse Practitioner Family
DX: S51.809A Unspecified open wound of unspecified forearm, initial encounter (principal); W19.XXXA Unspecified fall, initial encounter; J45.909 Unspecified asthma, uncomplicated; G47.33 Obstructive sleep apnea (adult) (pediatric); Z23 Encounter for immunization
CPT/HCPCS: 70450; 72125; 72192; 73090; 73552; 86803; 87389; 90471; 90715; 96374; 96375; 99285; J2405

== ENCOUNTER 2025-07-11 13:08 | Emergency (ER) | payer MEDICARE, MEDICAID, SELFPAY ==
--- OUTSIDE RECORDS SUMMARY | 2018-01-11 18:54 | XMS_ITS | Encounter Summary ---
[facility] Address [address] [place] [address] Care Team Providers Care Cyber Defense Incident Responder Name Role Phone Kamlesh Abdullahi MD Primary Care Provider [phone] Reason for Referral * Hospital - Outpatient (Routine) - Closed Specialty Diagnoses / Procedures Referred By Patricia neri Referred To Contact Sleep Medicine Diagnoses Obstructive sleep apnea Snoring Excessive daytime sleepiness Sleep talking Procedures Polysomnography 4 or More Parameters Amanuel Elizalde MD [address] [place] [address] 3 [place] [address] Phone: tel: fax: [facility] [address] [place] [address] Phone: tel: Referral ID Status Reason Start Date Expiration Date Visits Re quested Visits Authorized [id number] Closed 12/07/2017 01/11/2018 1 1 Reason for Visit * Hospital - Outpatient (Routine) - Closed Specialty Diagnoses / Procedures Referred By Patricia neri Referred To Contact Sleep Medicine Diagnoses Obstructive sleep apnea Snoring Excessive daytime sleepiness Sleep talking Procedures Polysomnography 4 or More Parameters Amanuel Elizalde MD 793 [facility] [address] [address] Phone: tel: fax: [facility] [address] [place] [address] Phone: tel: Referral ID Status Reason Start Date Expiration Date Visits Re quested Visits Authorized [id number] Closed 12/07/2017 01/11/2018 1 1 Encounter Details Date Type Department Care Team (Latest Contact Info) Description 01/11/2018 7:54 PM EDT Hospital Encounter [facility] [address] [place] [address] Amanuel Elizalde MD 793 [facility] [address] [place] [address] Obstructive sleep apnea; Snoring; Excessive [...] Elizalde MD - 01/12/2018 4:15 PM EDT [facility] Pulmonary, Critical Care, and Sleep Medicine Amanuel Elizalde M.D. 793 [facility] [address] Medical Office [facility] # 3[place] [id number]. POLYSOMNOGRAPHY INTERPRETATION Date of Study: 01/11/2018 Patient [...] a co-existing sleep disorder such as Narcolepsy, DATA POWER CONSULTANT Hypersomnolence or Insufficient Sleep Syndrome. To sort [...] feel free to contact the office of [facility] Pulmonary, Critical Care and Sleep Medicine at [phone], if you have any questions. Best regards, This document was electronically signed by Amanuel Elizalde MD January 12, 2018 4:11 PM Procedure Note Amanuel Elizalde MD - 01/12/2018 [facility] Pulmonary, Critical Care, and Sleep Medicine Amanuel Elizalde M.D. 793 [facility] [address] Medical Office Building # [address] [id number]. POLYSOMNOGRAPHY INTERPRETATION Date of Study: 01/11/2018 Patient [...] has a co-existing sleep disorder such asNarcolepsy, DATA POWER CONSULTANT Hypersomnolence or Insufficient Sleep Syndrome. To sort [...] feel free to contact the [facility] at [phone], if you haveany questions. Best regards, This [...] documented as of this encounter Care Teams Cyber Defense Incident Responder Relationship Specialty Start Date End Date Kamlesh Abdullahi MD [address] [place] [address] PCP - General Internal Medicine 06/21/17 01/15/19 documented as of this encounter
--- OUTSIDE RECORDS SUMMARY | 2018-03-10 11:00 | XMS_ITS | Encounter Summary ---
[facility] [address] [place] [address] Care Team Providers Care Dispensary Technician Name Role Phone Kamlesh Abdullahi MD Primary Care Provider Reason for Visit * Hospital - Outpatient (Routine) - Closed Specialty Diagnoses / Procedures Referred By Patricia neri Referred To Contact Sleep Medicine Diagnoses Dystonia Partial symptomatic epilepsy with complex partial seizures, not intractable, without status epilepticus Procedures EEG EEG Awake or Asleep Routine Regan Bruno MD Phone: tel: fax: [facility] [address] [place] [address] Phone: tel: Referral ID Status Reason Start Date Expiration Date Visits Re quested Visits Authorized [id number] Closed 02/28/2018 02/28/2019 1 1 Encounter Details Date Type Department Care Team (Latest Contact Info) Description 03/10/2018 12:00 PM EDT Hospital Encounter [facility] [address] [place] [address] Regan Bruno MD [address] [place] [address] Dystonia; Partial symptomatic epilepsy with complex partial seizures, not intractable, without status epilepticus Social History Tobacco Use Types Packs/Day Years [...] Procedure Name Priority Date/Time Associated Diagnosis Comments EEG AWAKE OR ASLEEP ROUTINE Routine 03/10/2018 1:10 PM EDT Dystonia Partial symptomatic epilepsy with complex partial seizures, not intractable, without status epilepticus documented in this encounter Results * EEG AWAKE OR ASLEEP ROUTINE (03/10/2018 1:10 PM EDT) Narrative Regan Bruno MD, FAAN - 04/05/2018 9:03 PM EDT EEG REPORT Identifying Information NAME: Diamond Damon : 1960 Age: 57 y.o. female Study Date: 04/05/2018 LOC: Wake and drowsy Sedation: No additional sedation administered Activation: HV, PS Requesting physician or Dept: :Kamlesh Abdullahi MD History & Indication: Possible seizures. Conditions of Recording: The recording was performed with a 24-channels digital EEG machine using the International 10-20 System electrode placements, standard AP Bipolar , transverse Bipolar and referential montages with eye movement leads, and an EKG lead (for artifact detection). Technical quality is satisfactory. INTERPRETATION: This is a technically Difficult study. This is a normal awake and asleep EEG study. There is no epileptiform discharges or clinical seizures were noted during the study. Clinical correlation is required. DETAILED FINDINGS: Background EEG Awake: The record is continuous, of normal voltage and bilaterally symmetrical. There is a well-developed posterior alpha rhythm at 8 cycle per second. There is a moderate amount of diffuse low voltage 15-25 Hz beta activity and a small amount of 4-7 Hz theta activity during wakefulness. No significant <4 Hz delta activity is present during wakefulness. Sleep: With drowsiness, there is attenuation of the background alpha activity and shift to slower frequencies. As the patient enters into light sleep, vertex waves, symmetrical spindles, and positive occipital sharp activity of sleep (POSTs) are noted. K-complexes are noted in sleep. Transition to the waking state is unremarkable. Photic Stimulation: Photo convulsive response is not seen Hyperventilation: There is no spike and wave complex or clear focal or lateralizing changes during hyperventilation Focal Slowing: None Epileptiform Activity: None Seizures / Patient Events: None The single-channel EKG rhythm monitoring lead shows regular rate and rhythm without arrhythmia. Report prepared by: Regan Bruno MD, FAAN, 04/05/2018 9:00 PM us Regan Bruno MD NEUROLOGY ORDERABLES Final Resul t documented in this encounter Visit Diagnoses Diagnosis Dystonia Abnormal involuntary movements Partial symptomatic epilepsy with complex partial seizures, not intractable, without status epilepticus documented in this encounter Additional Health Concerns Infection Onset Date Last Indicated Resolved Time COVID (confirmed) 04/16/2020 04/16/202003/11/2021 12:50 PM EDT COVID (rule out) 04/16/2020 04/16/2020 04/17/2020 3:38 PM EDT COVID (History) 03/11/2021 03/11/2021 COVID (rule out) 04/21/2022 04/21/2022 04/22/2022 8:27 PM EDT COVID (confirmed) 04/21/2022 04/21/2022 07/20/2022 9:08 PM EST Influenza 07/01/2022 07/01/2022 07/31/2022 9:08 PM EST documented as of this encounter Care Teams Dispensary Technician Relationship Specialty Start Date End Date Kamlesh Abdullahi MD [address] [place], [place] [id number] PCP - General Internal Medicine 06/21/17 01/15/19 documented as of this encounter
--- OUTSIDE RECORDS SUMMARY | 2024-09-26 04:15 | XMS_ITS ---
Author Organization [facility] Address [address] [place] [address] Care Team Providers Care Water Plant Maintenance Mechanic Name Role Phone ClauszainRed rush II Unavailable Jaelyn Guerrero Unavailable Unavailable Freeman Albarran Unavailable [phone] Allergies Allergen (clinical drug ingredient) Drug/Non Drug [...] Diagnosis [facility] [address] [place] [address] 09/26/2024 Freeman Albarran 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 Z79.899 ; lumbar spondylosis M47.816 ; cervical spondylosis M47.812 ; Postlaminectomy syndrome, not elsewhere classified M96.1 and Complex regional pain syndrome I of right lower limb G90.521 Assessments Encounter Date Diagnosis (ICD Code) Assessment Notes Treatment Notes Treatment Clinical Notes Section Notes 09/26/2024 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 f/u 2 months 20VFD23 - Patient with chronic LBP with radicular [...] validate a good response prior to implant. 02UYB32 - Patient presents today to discuss further [...] risk assessment is low. f/u 2 months 67CUJ81 - Patient with chronic LBP with radicular [...] validate a good response prior to implant. 94MGE74 - Patient presents today to discuss further [...] risk assessment is low. f/u 2 months 87TCE87 - Patient with chronic LBP with radicular [...] validate a good response prior to implant. 36CSL78 - Patient presents today to discuss further [...] risk assessment is low. f/u 2 months 91PBG88 - Patient with chronic LBP with radicular [...] validate a good response prior to implant. 95DJZ42 - Patient presents today to discuss further [...] risk assessment is low. f/u 2 months 94TQU50 - Patient with chronic LBP with radicular [...] validate a good response prior to implant. 24JHD38 - Patient presents today to discuss further [...] day(s) Treatment Notes Assessment Notes Other termite control service representative (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 July 24, 2024 1. Refill Percocet 7.5/325mg TID 2. Refer patient to NS. 3. Follow up in 2 months Pending Test Test Name Order Date Urine Test ANALYZER 09/26/2024 Next Appt Details Follow Up: 2 Months, Reason: Provider Name:Red cooney, 08/31/2025 02:45:00 PM, [address], [address], [place], [address], Progress Notes * Diamond LOUIEDOB: [birth year] (64 yo F)Acc No.[id number]:09/26/2024 FollowUP Patient: Diamond JUAREZ Provider: Humera Albarran MD :1960 A ge:63 Y S ex:Female Date:09/26/2024 Address:[address] [place] [address] LEÓN Gómez [id number] Subjective: * Chief Complaints: * 1 . [...] of a left asymmetric disc bulge producing dlvaprmi-hu-baqyru left neuroforaminal stenosis and subarticular recess narrowing. [...] with no relief A shira Therapy- At [facility] 1994 which helped after her stroke [...] a nxiety diagnosed managed by Jaelyn Renteria HOURLY CAREGIVER , [facility] , bipolar disorder diagnosed 1993 [facility] HOURLY CAREGIVER , COPD diagnosed 1979 [facility] HOURLY CAREGIVER , fibromyalgia diagnosed 1989 [facility] by [facility] HOURLY CAREGIVER , depression diagnosed [facility] HOURLY CAREGIVER , seizures diagnosed 2016 [facility] HOURLY CAREGIVER , Stroke diagnosed 1993 [facility] HOURLY CAREGIVER , Hypothyroidism diagnosed 1979 [facility] HOURLY CAREGIVER , scoliosis diagnosed 1979 [facility] HOURLY CAREGIVER , Degenerative disc disease diagnosed 1999 [facility] by [facility] HOURLY CAREGIVER . * Surgical History: L eft ankle surgery x2/ [facility] / with a 3 day stay 1999, Appendectomy/ [facility] / overnight stay 2003, Cholecystectomy/ [facility] / overnight stay 2002, LT Hand Surgery x2/ [facility] / with a 3 day stay 1976, Neck (cervical discetomy)Dr. Marc/ [facility] / over night stay 2004, RT Shoulder / [facility] / (OP) 1981, Tonsillectomy/ [facility] / (OP) 1965, Tubal abdominal ligation / in [place] / (OP) 1981, Bladder lift / [facility] / Dr. Alicia Crawford / (OP) 2005, Ovarien Cyst Rupture/ [facility] / with a 3-4 day stay 1987, oophorectomy (left)/ [facility] / (OP) 2005, [place] teeth/ Dr. Hess / (OP) 1976, Hernia repair / [facility] / (OP) 03/14/2021. * Hospitalization/Major Diagno [...] * Vitals: * Examination: G eneral Examination: Nurse/Brush Machine Setter: Obey Blackman (MA LEX) 07/24/2024 2:25:50 PM [...] Assessment: * Assessment: 1. O ther termite control service representative (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 - Z79.899 (Primary) 2 [...] risk assessment is low. f/u 2 months 97CSP27 - Patient with chronic LBP with radicular [...] validate a good response prior to implant. 06HQD94 - Patient presents today to discuss further [...] Electronic signature of Kj Albarran M.D. on 07/11/2025 at 01:07 PM HEMATOLOGY SPECIALIST Sign off status: Pending * Provider: Humera Albarran MD Date: 0 09/26/2024 Generated for Bacilio anna/Sajan/Juan on: 09/10/2024 01:07 PM HEMATOLOGY SPECIALIST History and Physical Notes * HPI (History [...] of a left asymmetric disc bulge producing drjwhykn-js-rawkmn left neuroforaminal stenosis and subarticular recess narrowing. Far left lateral component encroaches upon and may abut or contact the exiting left L5 nerve root PHYSICAL/AQUA THERAPY/DME/OT HER HISTORY: Physical Therapy- 2018 with no relief Aqua Therapy- At [facility] 1994 which helped after her stroke [...] leads removed, tip intact. Sterile dressing applied Nurse/Brush Machine Setter: Xiomara Douglas (MA LEX) 07/24/2024 2:25:50 PM [...]
--- OUTSIDE RECORDS SUMMARY | 2025-01-15 08:45 | XMS_ITS ---
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 Refer patient to NS.- waiting to reschedule appt. 3. Follow up in 2 months 4. refill tizanidine 4mg TID Pending Test Test Name Order Date Urine Test ANALYZER 01/15/2025 Next Appt Details Follow Up: 2 Months, Reason: Provider Name:Red cooney, 08/31/2025 02:45:00 PM, [address], [address], [place], [address], Procedure Notes * Category Sub-Category Detail Notes PROVIDER ENCOUNTER AND OVERSIGHT Consult Performed By: Cristina-Lotus MIRAMONTES 11/20/2024 2:58:33 PM > collaborated treatment plan with Red vallejo M.D., supervising physician who was present in office during consultation Progress Notes * Diamond LOUIEDOB: [birth year] (64 yo F)Acc No.[id number]:01/15/2025 FollowUP Patient: Chinedu LEMUS Diamond Provider: Tianna Tamayo II, M.D. :1960 A ge:64 Y S ex:Female Date:01/15/2025 Address:[address] [place], [place] [id number] Subjective: * Chief Complaints: * 1 . [...] of a left asymmetric disc bulge producing bzjyefbv-ec-whvpgs left neuroforaminal stenosis and subarticular recess narrowing. [...] , seizures diagnosed 2016 managed by Jaelyn Renteira APRN , Stroke diagnosed 1993 managed by Jaelyn Renteria APRN , Hypothyroidism diagnosed 1979 managed by Jaelyn Renteria APRN , scoliosis diagnosed 1979 managed by Jaelyn Renteria APRN , Degenerative disc disease diagnosed 1999 managed by Jaelyn Renteria APRN . * Surgical History: L eft ankle surgery x2/ [facility] / with a 3 day stay 1999, Appendectomy/ [facility] / overnight stay 2003, Cholecystectomy/ [facility] / overnight stay 2002, LT Hand Surgery x2/ [facility] / with a 3 day stay 1976, Neck (cervical discetomy)Dr. Marc/ [facility] / over night stay 2004, RT Shoulder / [facility] / (OP) 1981, Tonsillectomy/ [facility] / (OP) 1965, Tubal abdominal ligation / in [place] / (OP) 1981, Bladder lift / [facility] / Dr. Alicia Crawford / (OP) 2005, Ovarien Cyst Rupture/ [facility] in [facility] [place] / with a 3-4 day stay 1987, oophorectomy (left)/ [facility] / (OP) 2005, [place] teeth/ Dr. Hess / (OP) 1976, Hernia [...] * Vitals: * Examination: G eneral Examination: Nurse/Supervisor Cap And Hat Production: Bethany gonzalez(MA-Ray)[place] 11/20/2024 2:29:18 PM > . [...] Assessment: * Assessment: 1. 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 c ollaborated treatment plan with Tianna Tamayo M.D., supervising physician who was present in office during consultation. * Follow Up: 2 Months * * Electronic signature of Nigel Tamayo II, M.D. on 07/11/2025 at 01:07 PM HOISTER Sign off status: Pending * Provider: Tianna Tamayo II, M.D. Date: 0 01/15/2025 Generated for Bacilio anna/Sajan/eTransmitting on: 1 09/10/2024 01:07 PM HOISTER History and Physical Notes * HPI (History [...] of a left asymmetric disc bulge producing xhciwjni-xj-dwkuee left neuroforaminal stenosis and subarticular recess narrowing. [...] leads removed, tip intact. Sterile dressing applied Nurse/Supervisor Cap And Hat Production: [place] Graham (MA-Lex) 11/20/2024 2:29:18 PM > [...]
--- OUTSIDE RECORDS SUMMARY | 2025-04-23 09:45 | XMS_ITS ---
Author Organization [facility] Address [address] [place] [address] Care Team Providers Care Banking Officer Name Role Phone ClauszainRed rush II Unavailable [phone] Jaelyn Guerrero Unavailable Unavailable Freeman Albarran Unavailable [phone] Allergies Allergen (clinical drug ingredient) Drug/Non Drug [...] Diagnosis [facility] [address] [place] [address] 04/23/2025 Freeman Albarran Other intermodal customer service (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 Z79.899 ; lumbar spondylosis M47.816 ; cervical spondylosis M47.812 ; Postlaminectomy syndrome, not elsewhere classified M96.1 and Complex regional pain syndrome I of right lower limb G90.521 Assessments Encounter Date Diagnosis (ICD Code) Assessment Notes Treatment Notes Treatment Clinical Notes Section Notes 04/23/2025 Other custodial (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 (ICD-10 - Z79.899) 04/23/2025 [...] denies any side effect of the medication. Johntahan and UDS were reviewed. Opioid risk assessment [...] 30 days Treatment Notes Assessment Notes Other custodial (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 04/23/2025 1. Refill Percocet 7.5/325mg TID 2. Refill Tizanidine 4mg TID 3. Refill Lidocaine patch daily as directed 4. Follow up in 1 month for MD Pending Test Test Name Order Date Urine Test ANALYZER 04/23/2025 Next Appt Details Follow Up: 2 Months, Reason: Provider Name:Red cooney, 08/31/2025 02:45:00 PM, [address], [address], [address], Progress Notes * Diamond LOUIEDOB: [birth year] (64 yo F)Acc No.[id number]:04/23/2025 Patient: Chinedu Diamond LEMUS Provider: Humera Albarran MD :1960 A ge:64 Y S ex:Female Date:04/23/2025 Address:[address] [place] [address] [place], [id number] Subjective: * Chief Complaints: * 1 . [...] of a left asymmetric disc bulge producing dksrgvhv-us-uorbvx left neuroforaminal stenosis and subarticular recess narrowing. [...] with no relief A shira Therapy- At [facility] 1994 which helped after her stroke [...] History: L eft ankle surgery x2/ [facility] / with a 3 day stay 1999, Appendectomy/ [facility] / overnight stay 2003, Cholecystectomy/ [facility] / overnight stay 2002, LT Hand Surgery x2/ [facility] / with a 3 day stay 1976, Neck (cervical discetomy)Dr. Marc/ [facility] / over night stay 2004, RT Shoulder / [facility] / (OP) 1981, Tonsillectomy/ [facility] / (OP) 1965, Tubal abdominal ligation / in [place] / (OP) 1981, Bladder lift / [facility] / Dr. Alicia Crawford / (OP) 2005, Ovarien Cyst Rupture/ [facility] A [facility] in [facility] / with a 3-4 day stay 1987, oophorectomy (left)/ [facility] / (OP) 2005, [place] teeth/ Dr. Hess / (OP) 1976, Hernia repair / [facility] / (OP) 03/14/2021. * Hospitalization/Major Diagno [...] * Vitals: * Examination: G eneral Examination: Nurse/It Solutions Architect: Juan Jean-BaptisteMA-Ray)Rianna 03/27/2025 02:44:00 PM EDT >. [...] . Assessment: * Assessment: 1. O ther intermodal customer service (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 - Z79.899 (Primary) 2 [...] of Kj Albarran M.D. on 07/11/2025 at 01:06 PM SINK CUTTER Sign off status: Pending * Provider: Humera Albarran MD Date: 0 04/23/2025 Generated for Bacilio anna/Sajan/Juan on: 1 09/10/2024 01:06 PM SINK CUTTER History and Physical Notes * HPI (History [...] of a left asymmetric disc bulge producing incneazq-rr-hdzdvg left neuroforaminal stenosis and subarticular recess narrowing. Far left lateral component encroaches upon and may abut or contact the exiting left L5 nerve root PHYSICAL/AQUA THERAPY/DME/OT HER HISTORY: Physical Therapy- 2018 with no relief Aqua Therapy- At [facility] 1994 which helped after her stroke [...] leads removed, tip intact. Sterile dressing applied Nurse/It Solutions Architect: Jay Martin (MA-Lex) 03/27/2025 02:44:00 PM EDT [...]
--- OUTSIDE RECORDS SUMMARY | 2025-06-08 09:15 | XMS_ITS ---
Author Organization [facility] Address [address] [place] [address] Care Team Providers Care Drawing Tender Name Role Phone Red Tamayo II Unavailable [...] Diagnosis [facility] [address] [place] [address] 06/08/2025 Red Tamayo Other senior care (current) drug therapy Z79.899 ; lumbar spondylosis M47.816 ; cervical spondylosis M47.812 ; Postlaminectomy syndrome, not elsewhere classified M96.1 and Complex regional pain syndrome I of right lower limb G90.521 Assessments Encounter Date Diagnosis (ICD Code) Assessment Notes Treatment Notes Treatment Clinical Notes Section Notes 06/08/2025 Other senior care (current) drug therapy (ICD-10 - Z79.899) June [...] were reviewed. Opioid risk assessment is low. 60QMS69 - Patient with increased spasms to her [...] were reviewed. Opioid risk assessment is low. 69AOM60 - Patient with increased spasms to her [...] were reviewed. Opioid risk assessment is low. 45FUL30 - Patient with increased spasms to her [...] were reviewed. Opioid risk assessment is low. 48LWE61 - Patient with increased spasms to her [...] were reviewed. Opioid risk assessment is low. 12KSM96 - Patient with increased spasms to her [...] IF CLOSED) Treatment Notes Assessment Notes Other senior care (current) drug therapy June 08, 2025 1. Refill percocet 7.5/325mg TID 2. Refill tizanidine 4mg TID - stop 3. Refill Lidocaine patch daily as directed 4. Order TENS unit 5. Follow up in 2 months 6. Start Robaxn 500mg TID Next Appt Details Follow Up: 2 Months, Reason: Provider Name:Red cooney, 08/31/2025 02:45:00 PM, [address], [facility] [address], [place], [address], Procedure Notes * Category Sub-Category Detail Notes PROVIDER ENCOUNTER AND OVERSIGHT Consult Performed By: Nikole ( BOILER MECHANIC-RAY)Magali 03/27 03:25:49 PM EDT > collaborated treatment plan with Red vallejo M.D., supervising physician who was present in office during consultation Progress Notes * Diamond LOUIEDOB: [birth year] (64 yo F)Acc No.[id number]:06/08/2025 FollowUP Patient: Diamond JUAREZ Provider: Tianna Tamayo II, M.D. :1960 A ge:64 Y S ex:Female Date:06/08/2025 Address:[address] [place], [place] [id number] Subjective: * Chief Complaints: * 1 . [...] of a left asymmetric disc bulge producing [id number]-[id number] left neuroforaminal stenosis and subarticular recess narrowing. [...] with no relief A shira Therapy- At [facility] 1994 which helped after her stroke 0 [...] a nxiety diagnosed managed by Jaelyntomas Renteria REPAIRER HAIRSPRING , [facility] diagnosed [facility] , bipolar disorder diagnosed 1993 [facility] , COPD [facility] , fibromyalgia diagnosed 1989 managed by Jaelyn Godkelley REPAIRER HAIRSPRING , depression diagnosed managed by Jaelyn Godby REPAIRER HAIRSPRING , seizures diagnosed 2016 managed by Jaelyn Myra REPAIRER HAIRSPRING , Stroke diagnosed 1993 managed by Jaelyn Godby REPAIRER HAIRSPRING , Hypothyroidism diagnosed 1979 [facility] , scoliosis diagnosed 1979 managed by Jaelyn Godkelley REPAIRER HAIRSPRING , Degenerative disc disease diagnosed 1999 managed by Jaelyn Myra REPAIRER HAIRSPRING. * Surgical History: L eft ankle surgery x2/ [facility] / with a 3 day stay 1999, Appendectomy/ [facility] / overnight stay 2003, Cholecystectomy/ [facility] / overnight stay 2002, LT Hand Surgery x2/ [facility] / with a 3 day stay 1976, Neck (cervical discetomy)Dr. Marc/ [facility] / over night stay 2004, RT Shoulder / [facility] / (OP) 1981, Tonsillectomy/ [facility] / (OP) 1965, Tubal abdominal ligation / in [place] / (OP) 1981, Bladder lift / [facility] / Dr. Alicia Crawford / (OP) 2005, Ovarien Cyst Rupture/ [facility] in [facility] / with a 3-4 day stay 1987, oophorectomy (left)/ [facility] / (OP) 2005, [place] teeth/ Dr. Hess / (OP) 1976, Hernia repair / [facility] / (OP) 03/14/2021. * Hospitalization/Major Diagno stic [...] 145, BMI:24.13Index. * Examination: G eneral Examination: Nurse/Medical Technician: Obey Blackman (MA LEX) 06/08/2025 02:50:33 PM [...] . Assessment: * Assessment: 1. O ther oil heaterman (current) drug therapy - Z79.899 (Primary) 2 [...] were reviewed. Opioid risk assessment is low. [id number] - Patient with increased spasms to her [...] OVERSIGHT: Consult Performed By: Austin briseno ( BOILER MECHANIC-RAY)Magali 03/27/2025 03:25:49 PM EDT >. c ollaborated treatment plan with Tianna Tamayo M.D., supervising physician who was present in office during consultation. * Follow Up: 2 Months * * Sign off status: Completed true * Provider: Tianna Tamayo II, M.D. Date: Generated for Bacilio anna/Sajan/eTransmitting on: 09/10/2024 01:07 PM SIGNALS ANALYST History and Physical Notes * HPI (History [...] of a left asymmetric disc bulge producing frhoolai-gt-puqwax left neuroforaminal stenosis and subarticular recess narrowing. Far left lateral component encroaches upon and may abut or contact the exiting left L5 nerve root PHYSICAL/AQUA THERAPY/DME/OT HER HISTORY: Physical Therapy- 2019 with no relief Aq ua Therapy- At [facility] 1994 which helped after her stroke 01/30/2025 [...] leads removed, tip intact. Sterile dressing applied Nurse/Medical Technician: Tyler Douglas (MA LEX) 06/08/2025 02:50:33 PM [...]
--- OUTSIDE RECORDS SUMMARY | 2025-07-04 11:00 | XMS_ITS ---
Author Organization [facility] Address [address] [place] [address] Care Team Providers Care Olericulture Professor Name Role Phone Red Tamayo II Unavailable [phone] Jaelyn Guerrero Unavailable Unavailable Allergies Allergen (clinical [...] Reference Range Notes Urine Test ANALYZER Reviewed date:07/04/2025 03:16:44 PM Interpretation:ALL NEG Performing Lab: Notes/Report: ALL NEG Amphetamine (AMP) NEG Benzodiazepine (EMANUEL) NEG Methadone [...] TO FILL EARLY, ONLY IF CLOSED) Active meclizine 25 mg 1 tab Oral [...] a day; Duration: 5 day(s) 10/20/2022 Active acyclovir 400 mg 1 tab(s) orally 2 times a day 10/29/2022 Active buPROPion 150 mg/12 hours 1 tab(s) orally 2 times a day; Duration: 30 day(s) 10/29/2022 Active levothyroxine 75 mcg (0.075 mg) 1 tab(s) orally once a day Active methocarbamol 500 mg 1 tab orally 3 time s a day; Duration: 30 days Active Social History Alcohol Screen Question Answer Notes Did you have a drink contain ing alcohol in the past year? Yes How often did you have a dri nk containing alcohol in the past year? Monthly or less (1 point) Points 1 Interpretation Negative Vital Signs Blood pressure systolic 136 mm Hg 07/04/20 25 Blood pressure diastolic 76 mm Hg 025 Heart Rate 79 /min 07/04/2025 Height 65 in 07/04/2025 Weight 144 lbs 07/04/2025 BMI 23.96 kg/m2 07/04/2025 Encounters Encounter Location Date Provider Diagnosis [facility] [address] [place] [address] 07/04/2025 Red Tamayo Other shelter (current) drug therapy Z79.899 ; lumbar spondylosis M47.816 ; cervical spondylosis M47.812 ; Postlaminectomy syndrome, not elsewhere classified M96.1 and Complex regional pain syndrome I of right lower limb G90.521 Assessments Encounter Date Diagnosis (ICD Code) Assessment Notes Treatment Notes Treatment Clinical Notes Section Notes 07/04/2025 Other shelter (current) drug therapy (ICD-10 - Z79.899) 07/04/2025 1. Refill percocet 7.5/325mg TID 2. Refill tizanidine 4mg TID - stop 3. Refill Lidocaine patch daily as directed 4. Order TENS unit 5. Follow up in 2 months 6. Start Robaxn 500mg TID 07/04/2025 Ms. Louie is a 64 year-old with [...] were reviewed. Opioid risk assessment is low. Follow up 2 months. 07/04/2025 lumbar spondylosis (ICD-10 - M47.816) 07/04/2025 Ms. Louie is a 64 year-old with [...] were reviewed. Opioid risk assessment is low. Follow up 2 months. 07/04/2025 cervical spondylosis (ICD-10 - M47.812) 07/04/2025 Ms. Louie is a 64 year-old with [...] were reviewed. Opioid risk assessment is low. Follow up 2 months. 07/04/2025 Postlaminectomy syndrome, not elsewhere classified (ICD-10 - M96.1) 07/04/2025 Ms. Louie is a 64 year-old with [...] were reviewed. Opioid risk assessment is low. Follow up 2 months. 07/04/2025 Complex regional pain syndrome I of right lower limb (ICD-10 - G90.521) 07/04/2025 Ms. Louie is a 64 year-old with [...] were reviewed. Opioid risk assessment is low. Follow up 2 months. 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 Refill percocet 7.5/325mg TID 2. Refill tizanidine 4mg TID - stop 3. Refill Lidocaine patch daily as directed 4. Order TENS unit 5. Follow up in 2 months 6. Start Robaxn 500mg TID Next Appt Details Follow Up: 2 Months, Reason: Provider Name:Red cooney, 08/31/2025 02:45:00 PM, [address], [address], [place], [address], Procedure Notes * Category Sub-Category Detail Notes PROVIDER ENCOUNTER AND OVERSIGHT Consult Performed By: DebbieP-RAY)Lotus 07/11/2025 02:03:11 PM EST > collaborated treatment plan with Red vallejo M.D., supervising physician who was present in office during consultation Progress Notes * Diamond LOUIEDOB: [birth year] (64 yo F)Acc No.[id number]:07/04/2025 FollowUP Patient: Deanne JUAREZecca Provider: Tianna Tamayo II, M.D. :1960 A ge:64 Y S ex:Female Date:07/04/2025 Address:[address] [place] [address] [place], [id number] Subjective: * Chief Complaints: * N michelle painLow back painBIL shoulder pain * HPI: T ODAYS PAIN EVALUATION: 64 year old female presents with c/o MEDICATION FOLLOW UP: T he patient is currently prescribed Oxycodone 7.5/325mg TID, which provides 10% relief of pain symptoms for 2 hours. The last dose was taken 07/09/2025 Denies side effects. CURRENT PAIN SYMPTOMS: L ocation of Worst Pain: M id-Back, Low Back, P ain Frequency: c onstant, P ain Description: a emmett, burning, cramping, sharp, stabbing, numb, tingling, A verage Pain Score VAS: 8 , P ain Exacerbation: activity ,life, P ain Alleviation: laying down, A DL/Quality of Life Interference: my life. P AIN MANAGEMENT TREATMENT HISTORY: IMAGING HISTORY: 11/01/2017 MRI CERVICAL -Stable posterior disc osteophyte complex at the C4/C5 level creating no new central spinal canal stenosis. Very little interval change when compared to the prior study. 04/21/2018 MRI LUMBAR -Multilevel spondylitic changes, greatest at the L5-S1 level, where there is far left lateral components of a left asymmetric disc bulge producing hfexhruk-re-eemxhg left neuroforaminal stenosis and subarticular recess narrowing. [...] 06/18/2022- ITP Trial, 80% relief for 7 days. P HYSICAL/AQUA THERAPY/DME/OTHER HISTORY: 05/2025 pt onshoulders not helpful Therapy- At [facility] 1994 which helped after her stroke 07/04/2025 , No therapies reported. P ERTINENT SURGICAL EVALUATIONS/SPECIALIST CONSULTS No prior surgical consult . P REVIOUS PAIN CLINIC CARE: Dr. Al Jin . S UMMARY OF INITIAL EVALUATION: 09/26/2019- New patient consult [...] Definitive, 03/27/2025, Screen Expected 04/26/2025,,Screen Expected 06/08/2025, 07/04/2025. M ONITORING: Morphine Equivalent (MME): 34 JOHNATHAN [...] History: L eft ankle [facility] x2/ [facility] / with a 3 day stay 2000Appendectomy/ [facility] / overnight stay 2004Cholecystectomy/ [facility] / overnight stay 2003LT Hand Surgery x2/ [facility] / with a 3 day stay 1976[facility] 2005RT Shoulder / [facility] / (OP) 1982Tonsillectomy/ [facility] / (OP) 1966Tubal abdominal ligation / in [place] / (OP) 1982Bladder lift / [facility] / Dr. Alicia Crawford / (OP) 2005Ovarien Cyst Rupture/ [facility] in [facility] / with a 3-4 day stay 1987oophorectomy (left)/ [facility] / (OP) 2005Wisdom teeth/ Dr. Hess / (OP) 1976Hernia repair / [facility] / (OP) 03/14/2021 * Hospitalization/Major Diagno stic Procedure: B owel obstruction / / treated and released oughing/ [facility]/1 day stay 01/2025 * Family History: N on-Contributory. Family history [...] I nterpretation N egative. * Medications: T akingLidocaine Pain Relief Patch 4% film 1 PATCH [...] tablet 1 tab(s) orally once a day acetaminophen-oxycodone 325 mg-7.5 mg tablet 1 tab(s) orally 3 times a day methocarbamol 500 mg tablet 1 tab orally 3 times a day Taking Lidocaine Pain Relief Patch 4% film [...] tab(s) orally 3 times a day Taking methocarbamol 500 mg tablet 1 tab orally 3 times a day * Allergies: N eosporin: rash - Allergycodeine: anaphylaxis - Allergydiphenhydramine: hives - Allergymorphine: anaphylaxis - Allergyprednisone: anaphylaxis - Allergyibuprofen: hives - Allergymethadone: stomach upset - Side EffectsSoma: hives - AllergyDilaudid: hives - Allergyno[Allergies Verified] Objective: * Vitals: B P:136/76, HR:79, Pain VAS (0-10): 8, Ht: 65, Wt:144, BMI:23.96Index. * Examination: G eneral Examination: Nurse/Railroad Baggage Porter: Bethany khanMA-RayMaine Aranda 07/04/2025 03:47:09 PM EST >. General Appearance: NAD, well nourished and [...] . Assessment: * Assessment: 1. 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 l umbar spondylosis - M47.816 3 . c ervical spondylosis - M47.812 4 .?Postlaminectomy syndrome, not elsewhere classified - M96.1 5 . C omplex regional pain syndrome I of right lower limb - G90.521 07/04/2025 Ms. Louie is a 64 y ear-old [...] were reviewed. Opioid risk assessment is low. Follow up 2 months. Plan: * Treatment: Value Reference Range A mphetamine (AMP) NEG * B enzodiazepine (EMANUEL) NEG * M ethadone (MTD) NEG * O piate (OPI) NEG * Kalli Rivera 07/04/2025 03:39: 33 PM EST >Alexandre(SENIOR VISUAL DESIGNER-RAY), Lotus 07/04/2025 04:05:31 PM EST > (Confirm All) Send specimen for definitive testing on Amphetamines, Anticonvulsants, Antitussive, Barbiturates,Bath Salts, Benzodiazepines, Buprenorphine, Fentanyl,CIPRIANO Analogue, Heroin, Illicits, Methadone, Methylphenidate, Muscle Relaxants, Nicotine, Opiates, Opioid Antagonist, Other Anxiolytic,Recreational Compounds, Sleep Aids, SSRI/SNRI,Synthetic Cannabinoids,Tricyclics drug classes it has been 6 months since last UDS confirmation Notes: 07/04/2025 1. Refill percocet 7.5/325mg TID 2. Refill tizanidine 4mg TID - stop 3. Refill Lidocaine patch daily as directed 4. Order TENS unit 5. Follow up in 2 months 6. Start Robaxn 500mg TID?? * Procedures: Chelsi SMITH ENCOUNTER AND OVERSIGHT: Consult Performed By: Alexandre(Travelatus), Lotus 07/11/2025 02:03:11 PM EST >. c ollaborated treatment plan with Tianna Tamayo M.D., supervising physician who was present in office during consultation. * Procedure Codes: * Follow Up: 2 Months * * E HANGER Sign off status: Completed true * Provider: Tianna Tamayo II, M.D. Date: 09/03/2024 Generated for Bacilio anna/Sajan/Maudeitting on: 09/10/2024 01:06 PM PLATE HANGER History and Physical Notes * HPI (History [...] of a left asymmetric disc bulge producing cglnipgi-mo-amonkr left neuroforaminal stenosis and subarticular recess narrowing. Far left lateral component encroaches upon and may abut or contact the exiting left L5 nerve root PHYSICAL/AQUA THERAPY/DME/OT HER HISTORY: 05/2025 pt onshoulders not helpful Thera py- At [facility] 1994 which helped after her stroke 07/04/2025 , No therapies reported PERTINENT SURGICAL EVALUATIONS/SPECIALIST CONSULTS No prior surgical consult PREVIOUS INJECTION\PROCEDURE HISTORY: - #1 LMBB MARY L234 with 80% relief [...] Definitive, 03/27/2025, Screen Expected 04/26/2025,,Screen Expected 06/08/2025, 07/04/2025 MONITORING: Morphine Equivalent (MME): 34 JOHNATHAN reviewed today and appropriate TESTING/RISK ASSESSMENTS ORT Score/Resul t: 23( OCD, Bipolar, Depression, Family history of substance abuse, Personal history of substance abuse) TODAYS PAIN EVALUATION MEDICATION FOLLOW UP: The patient is currently prescribed Oxycodone 7.5/325mg TID, which provides 10% relief of pain symptoms for 2 hours. The last dose was taken 07/09/2025 Denies side effects CURRENT PAIN SYMPTOMS: Location of Worst Pain:: Mid-Back, Low Back Pain Frequency:: constant Pain Description:: aching, b urning, cramping, sharp, stabbing, numb, tingling Average Pain Score VAS:: 8 Pain Exacerbation:: activity ,life Pain Alleviation:: laying down ADL/Quality of Life Interference:: my li fe Examination Category Sub-Category Detail Notes Category [...] leads removed, tip intact. Sterile dressing applied Nurse/Railroad Baggage Porter: Gladys(MA-Ray), [place] 07/04/2025 03:47:09 PM EST > Cervical Spine/Neck Vertebral spine tenderness: tenderness [...]
[2025-07-11 13:25] VITALS: BP 120/72; PULSE 80; RESP 16; TEMP 36.7; O2SAT 97; BMI 23.3
--- NOTE | 2025-07-11 13:59 | ED_ITS ---
<Statement entered by Ramon Avelar MD - 07/11/25 16:36> I independently examined this patient. Briefly, 64-year-old female with a history of stroke in the past with resultant left-sided deficits. She is primarily presenting today with complaints to me of right leg cramping. Cranial nerves are intact, gross motor and sensory in upper and lower extremities are intact. No ataxia or dysdiadochokinesia. She is neurovascularly intact in her bilateral lower extremities. Not overly tender anywhere in her leg. I suspect that her cramping may be due to the fact that she reports to me that she was on Valium since 1993 and was taken off of it within the last few weeks. I have instructed her to follow-up with her PCP regarding this CT Noncon independently interpreted by myself demonstrate no acute intracranial abnormality. [place] reasonable for discharge home with strict return precautions and PCP follow-up. I was consulted by the SANKET, and we discussed the complexity of problems being addressed. I approved the treatment and management plan for this patient's care in the emergency department, thus performing a substantial portion of the medical decision making. Ramon Avelar MD. Discharge Plan Disposition Patient Disposition: Home, Self-Care Prescriptions Prescriptions: No Action guaifenesin 600 mg tablet extended release 12hr 600 mg PO DAILY Qty: 90 2RF naloxone [Narcan] 4 mg/actuation spray,non-aerosol 4 mg intranasal Q3M PRN (Reason: opioid overdose) Qty: 2 2RF Rx Instructions: spray 1 dose into ONE nostril; alternate nostrils w each dose until help arrives lidocaine 4 % adhesive patch,medicated topical albuterol sulfate [Ventolin HFA] 90 mcg/actuation HFA aerosol inhaler 2 puff inhalation Q6H PRN (Reason: shortness of breath or wheezing) Qty: 8.5 2RF sennosides [senna] 8.6 mg tablet 8.6 mg PO .COMPLEX PRN (Reason: constipation) Qty: 30 2RF Rx Instructions: 8.6 mg orally PRN; levothyroxine 50 mcg tablet See Rx Instructions .ROUTE .COMPLEX Qty: 90 0RF Dose Instruction: TAKE 1 TABLET BY MOUTH ONCE DAILY Rx Instructions: TAKE 1 TABLET BY MOUTH ONCE DAILY bupropion HCl 300 mg tablet extended release 24 hr See Rx Instructions .ROUTE .COMPLEX Qty: 90 1RF Dose Instruction: TAKE ONE (1) TABLET BY MOUTH ONCE DAILY Rx Instructions: TAKE ONE (1) TABLET BY MOUTH ONCE DAILY polyethylene glycol 3350 [Miralax] 17 gram/dose powder 17 g PO DAILY Qty: 510 0RF oxycodone-acetaminophen 7.5-325 mg tablet 1 tab PO TID ondansetron 4 mg tablet,disintegrating 4 mg PO Q8H PRN (Reason: nausea and vomiting) 5 Days Qty: 10 0RF valacyclovir [Valtrex] 1 gram tablet 1,000 mg PO DAILY PRN (Reason: herpes) venlafaxine 150 mg capsule,extended release 24hr 150 mg PO DAILY Rx Instructions: TAKE ONE CAPSULE BY MOUTH ONCE A DAY fenofibrate nanocrystallized 145 mg tablet 145 mg PO DAILY Rx Instructions: TAKE ONE TABLET BY MOUTH ONCE A DAY methocarbamol 500 mg tablet 1,000 mg PO Q8H PRN (Reason: muscle pain and spasm) Qty: 30 0RF Referrals Follow up/Referrals: Regan Navarrete APRN [Primary Care Provider, Family Practice] - See instructions Activity Restrictions/Add. Instructions Additional Instructions/Restrictions: All your scans were negative today. Please talk to your primary care provider about medication for the spasms as we discussed. If any other problems or concerns please see your PCP or return to the ED. Clinical Impressions Clinical Impression: Dizziness, Spasm Instructions Patient Instructions: DI for Vertigo, DI for Muscle Spasm Print Language Print Language: Danish Discharge ED Provider: Ramon Avelar Adult HPI <Ramon Avelar MD - Last Filed: 07/11/25 16:20> General Chief complaint: Dizziness Stated complaint: AO-07/10/25- Fall; H/A, bruises on chest, dizzines Time Seen by Provider: 07/11/25 13:59 Mode of Arrival: Family Vehicle Source of Information: Patient and Medical Record Description of Symptoms (Recalled from ER Triage Doc. by RN): Pt c/o headache with dizziness after a fall on Wednesday (07/09). Denies any LOC. She was seen in ED after the fall but reported that she didn't hit her but today realized she did d/t the tenderness at left scientologist/occipital areas. She reports she has a hx of stroke and has known left sided weakness deficits. She reports intermittent double vision. FS 114. She feels her speech is a little slow but feels fatigued like I could sleep for 2 days . Related Data Home Medications ?Medication ?Instructions ?Recorded ?Confirmed oxycodone-acetaminophen 7.5 mg-325 1 tab PO TID 07/03/25 mg tablet fenofibrate nanocrystallized 145 145 mg PO DAILY 01/2907/03/25 mg tablet valacyclovir 1 gram tablet 1,000 mg PO DAILY PRN herpe s 01/29/25 07/03/25 (Valtrex) venlafaxine 150 mg 150 mg PO DAILY 01/29/2512/22 capsule,extended release 24 hr lidocaine 4 % topical patch patch topical 05/02/2512/22 Previous Rx's ?Medication ?Instructions ?Recorded polyethylene glycol 3350 17 17 g PO DAILY #510 grams 1 gram/dose oral powder (Miralax) guaifenesin 600 mg tablet, 600 mg PO DAILY #90 tabs extended release 12 hr ondansetron 4 mg disintegrating 4 mg PO Q8H PRN nausea and 01/20/25 tablet vomiting 5 days #10 tabs naloxone 4 mg/actuation nasal 4 mg intranasal Q3M PRN opioid 02/06/25 spray (Narcan) overdose #2 ea sennosides 8.6 mg tablet (senna) 8.6 mg PO .COMPLEX [place] N 04/18/25 constipation #30 ea albuterol sulfate 90 mcg/actuation 2 puff inhalation Q 6H PRN 05/02/25 aerosol inhaler (Ventolin HFA) shortness of breath or wheezing #8.5 grams levothyroxine 50 mcg tablet See Rx Instructions .Route 05/15/25 .COMPLEX #90 tabs bupropion HCl 300 mg 24 hr tablet, See Rx Instructions .Route 07/09/25 extended release .COMPLEX #90 tabs methocarbamol 500 mg tablet 1,000 mg (2 x 500 mg) PO Q 8H PRN 07/10/25 muscle pain and spasm #30 tabs Allergies Allergy/AdvReac Type Severity Reaction Status Date / Time loratadine Allergy Mild Agression Verified 07/03/25 14:53 calamine Allergy Rash Verified 07/03/25 14:53 meloxicam (From Mobic) Allergy RESTLESS Verified 07/03/25 14:53 LEGS, NAUSEA Corticosteroids AdvReac Intermediate AGGRESION Verified 07/03/25 14:53 (Glucocorticoids) (steroids) Antihistamines - Alkylamine AdvReac Mild MANIC Verified 07/03/25 14:53 aripiprazole (From Abilify) AdvReac Mild AGRESSION Verified 07/03/25 14:53 bacitracin (From Neosporin AdvReac Mild MORE RED, Verified 07/03/25 14:53 ([id number])) IRRITATED brexpiprazole (From Rexulti) AdvReac Mild AGRESSIVE Verified 07/03/25 14:53 buspirone (From BuSpar) AdvReac Mild AGRESSIVE Verified 07/03/25 14:53 cariprazine (From Vraylar) AdvReac Mild HIGH ENERGY Verified 07/03/25 14:53 celecoxib (From Celebrex) AdvReac Mild Headache Verified 07/03/25 14:53 chlordiazepoxide (From AdvReac Mild SHAKES Verified 07/03/25 14:53 Librium) chlorpromazine (From AdvReac Mild MANIC Verified 07/03/25 14:53 Thorazine) clomipramine (From Anafranil) AdvReac Mild RLS Verified 07/03/25 14:53 clonazepam (From Klonopin) AdvReac Mild HIGH ENERGY Verified 07/03/25 14:53 codeine AdvReac Mild Anaphylaxis Verified 07/03/25 14:53 cyclobenzaprine (From AdvReac Mild RLS Verified 07/03/25 14:53 Flexeril) desipramine (From Norpramin) AdvReac Mild RLS Verified 07/03/25 14:53 desvenlafaxine (From Pristiq) AdvReac Mild AGRESIVE Verified 07/03/25 14:53 dexmedetomidine AdvReac Mild RLS Verified 07/03/25 14:53 divalproex sodium (From AdvReac Mild HEADACHE, Verified 07/03/25 14:53 Depakote) SWELLING duloxetine (From Cymbalta) AdvReac Mild AGRESSIVE Verified 07/03/25 14:53 eszopiclone (From Lunesta) AdvReac Mild NOT Verified 07/03/25 14:53 AFFECTIVE fluoxetine (From Prozac) AdvReac Mild MANIC Verified 07/03/25 14:53 hydrocodone (From Vicodin) AdvReac Mild ITCHING Verified 07/03/25 14:53 ibuprofen AdvReac Mild RLS Verified 07/03/25 14:53 lorazepam (From Ativan) AdvReac Mild RLS Verified 07/03/25 14:53 lurasidone (From Latuda) AdvReac Mild HYPER Verified 07/03/25 14:53 meperidine (From Demerol) AdvReac Mild RLS Verified 07/03/25 14:53 mirtazapine (From Remeron) AdvReac Mild RLS Verified 07/03/25 14:53 morphine AdvReac Mild Anaphylaxis Verified 07/03/25 14:53 neomycin (From Neosporin AdvReac Mild REDNESS Verified 07/03/25 14:53 ([id number])) paroxetine (From Paxil) AdvReac Mild RLS Verified 07/03/25 14:53 perphenazine (From Trilafon) AdvReac Mild RLS Verified 07/03/25 14:53 polymyxin B (From Neosporin AdvReac Mild REDNESS Verified 07/03/25 14:53 ([id number])) propranolol (From Inderal [place]) AdvReac Mild RLS Verified 07/03/25 14:53 quetiapine (From Seroquel) AdvReac Mild MANIC Verified 07/03/25 14:53 risperidone (From Risperdal) AdvReac Mild AGRESSIVE Verified 07/03/25 14:53 temazepam (From Restoril) AdvReac Mild HYPER Verified 07/03/25 14:53 topiramate (From Topamax) AdvReac Mild RLS Verified 07/03/25 14:53 tramadol (From Ultram) AdvReac Mild HYPER Verified 07/03/25 14:53 vortioxetine (From AdvReac Mild HYPER Verified 07/03/25 14:53 Trintellix) ziprasidone (From Geodon) AdvReac Mild HYPER Verified 07/03/25 14:53 zolpidem (From Ambien) AdvReac Mild HYPER Verified 07/03/25 14:53 acetaminophen (From Vicodin) AdvReac Hallucinati Verified 07/03/25 14:53 ng PFS <Ramon Avelar MD - Last Filed: 07/11/25 16:20> PFS Disclaimer: The information contained in this section may have been updated after the patient was seen, as this information can be updated by other users. Medical History Homicidal ideation Suicidal ideation History of anoxic brain injury Apparently associated with amitriptyline overdose in 1993, details unknown Stroke Postmenopausal bleeding Constipation Constipation Low back pain Herpes genitalis in women Falls Hx of falls related to CVA weakness, drop foot Imbalance Reports intermittent imbalance throughout her life span, multiple falls, some with injuries History of cocaine use Younger days Peroneal tendinitis, left leg Left-sided weakness History of stroke Apparently associated with amitriptyline overdose in 1993, details unknown Primary osteoarthritis of right knee Acute pain of right knee Left foot pain Patient new to facility Asthma Dyspnea on exertion History of multiple strokes Frequent falls Hyperlipemia Sjogrens syndrome Muscle spasm Dystonia Surgical History History of foot surgery History of left oophorectomy History of endometrial ablation H/O cervical spine surgery H/O hernia repair History of tonsillectomy Hx of appendectomy History of cholecystectomy History of arthroplasty of left ankle Family History Other Cancer Coronary artery disease Diabetes FHx: mental illness Hypertension Substance abuse Thyroid disorder Social History Smoking Status: Never smoker alcohol intake: former substance use type: denies use, former substance user, marijuana, crack/cocaine, opiates and prescription drug current occupational status: disabled Travel in the last 8 weeks?: None household members: significant other housing: house marital status: Have you lived/traveled outside US in past 30 days?: No Contact w/someone who lives/traveled outside US past 30 days?: No Exposure to someone with infectious disease in past 14 days?: No Do you have a fever (greater than 100.4 F or 38 C)?: No Have you tested positive for COVID-19?: No Exposed to someone with COVID-19 in past 14 days?: No Do you have a sore throat?: No Do you have a cough?: No Do you have any weakness?: No Do you have any diarrhea?: No Are you experiencing any unusual bleeding?: No Do you have any muscle aches/pain?: No Do you have any abdominal pain?: No Are you experiencing loss of taste or smell?: No Other Medical History Have you received the Flu Vaccine for this season: No Have you received the Pneumonia Vaccine: Yes <Breanna Barahona (ED), BALANCE WHEEL SCREW HOLE TAPPER - Last Filed: 07/11/25 16:24> ROS Obtained: Yes Systems reviewed as appropriate & no additional complaints except as documented Physical Exam <Breanna Barahona (ED), BALANCE WHEEL SCREW HOLE TAPPER - Last Filed: 07/11/25 16:24> General General appearance: alert and in no apparent distress Respiratory Respiratory exam: Present normal lung sounds bilaterally Cardiovascular Cardiovascular exam: Present regular rate, normal rhythm, +S1 and +S2 Neurological Exam Neurological exam: Present alert and oriented X3 Medical Decision Making <Ramon Avelar MD - Last Filed: 07/11/25 16:20> Medical Records Screening: Per USPSTF and CDC recommendations, given the prevalence of disease in our region, it is our hospital?s policy to screen for HIV and viral Hepatitis for all patients aged 18 and over and those with ongoing risk factors. Vital Signs: 07/11/25 13:25 07/11/25 14:45 Temperature 98.0 F Temperature Source Oral Pulse Rate 84 Pulse Rate [Right] 80 Respiratory Rate 16 Blood Pressure 139/90 Blood Pressure [Right Arm] 120/72 Blood Pressure Mean [Right Arm] 88 Blood Pressure Source [Right Arm] Automatic Cuff 02 Sat by Pulse Oximetry 97 100 Oxygen Delivery Method Room Air Room Air Lab Data Lab Results 07/11/25 14:27: WBC 13.9 H, RBC 3.74 L, Hgb 11.7 L, Hct 35.0 L, MCV 93.6, MCH 31.3 H, MCHC 33.4, RDW 12.9, Plt Count 429 H, MPV 9.7, Neut % (Auto) 68.1, Lymph % (Auto) 20.0, Barren % (Auto) 10.2 H, Eos % (Auto) 0.7, Baso % (Auto) 0.6, Neut # (Auto) 9.4 H, Lymph # (Auto) 2.8, Barren # (Auto) 1.4 H, Eos # (Auto) 0.1, Baso # (Auto) 0.1, Sodium 132 L, Potassium 4.0, Chloride 98, Carbon Dioxide 29, Anion Gap 9.0, BUN 22 H, Creatinine 0.80, Estimated Creat Clear 56, Estimated GFR 72, Est GFR ( Amer) 87, Glucose 107 H, Calcium 10.0, Magnesium 1.8, Total Bilirubin 0.8, AST 36, ALT 28, Alkaline Phosphatase 60, Troponin I < 0.01, Total Protein 7.9, Albumin 4.7, Globulin 3.2, Albumin/Globulin Ratio 1.5, Lipase 36, A cetaminophen < 10 L 07/11/25 14:27 07/11/25 14:27 Orders (Tests/Meds): ED MEDICATIONS Discontinued Medications Generic Name Dose Route Start Last Admin Trade Name Freq PRN Reason Stop Dose Admin Iopamidol 80 ml 07/11/25 15:27 07/11/25 15:29 Iopamidol-370 (76%);100ml Bottle IV 07/11/25 15:28 80 ml ONCE ONE Administration Orphenadrine Citrate 60 mg 07/11/25 15:07 07/11/25 15:27 Orphenadrine Citrate 60mg/2ml Vial IV 07/11/25 15:08 60 mg ONCE ONE Administration Sodium Chloride 10 ml 07/11/25 15:27 07/11/25 15:29 0.9 % Sodium Chloride 50 Ml Vial IV 07/11/25 15:28 10 ml ONCE ONE Administration ORDERS Category Date Time Status CT angio head Stat Cat Scan 07/11/25 14:[address] angio neck Stat Cat Scan 07/11/25 14:[address] head/brain wo con Stat Cat Scan 07/11/25 14:11 Completed Acetaminophen Stat Lab 07/11/25 14:27 Completed CBC [Complete Blood Count Auto Diff] Stat Lab 07/11/25 14:27 Completed Comprehensive Metabolic Panel Stat Lab 07/11/25 14:27 Completed Lipase Stat Lab 07/11/25 14:27 Completed Magnesium Stat Lab 07/11/25 14:27 Completed Trop I [Troponin I] Stat Lab 07/11/25 14:27 Completed Troponin I Q3H Lab 07/11/25 17:15 Ordered Troponin I Q3H Lab 07/11/25 20:15 Ordered ECG Data Tracing #1: Patient's EKG was independently reviewed by me, and interpreted to be significant for NSR with no acute ST-segment changes. <Breanna Barahona (ED), BALANCE WHEEL SCREW HOLE TAPPER - Last Filed: 07/11/25 16:24> Nghia Inquiry Pt receiving controlled substance: No Nghia was queried for this patient: No Vital Signs: 07/11/25 13:25 07/11/25 14:45 Temperature 98.0 F Temperature Source Oral Pulse Rate 84 Pulse Rate [Right] 80 Respiratory Rate 16 Blood Pressure 139/90 Blood Pressure [Right Arm] 120/72 Blood Pressure Mean [Right Arm] 88 Blood Pressure Source [Right Arm] Automatic Cuff 02 Sat by Pulse Oximetry 97 100 Oxygen Delivery Method Room Air Room Air Lab Data Lab Results 07/11/25 14:27: WBC 13.9 H, RBC 3.74 L, Hgb 11.7 L, Hct 35.0 L, MCV 93.6, MCH 31.3 H, MCHC 33.4, RDW 12.9, Plt Count 429 H, MPV 9.7, Neut % (Auto) 68.1, Lymph % (Auto) 20.0, Barren % (Auto) 10.2 H, Eos % (Auto) 0.7, Baso % (Auto) 0.6, Neut # (Auto) 9.4 H, Lymph # (Auto) 2.8, Barren # (Auto) 1.4 H, Eos # (Auto) 0.1, Baso # (Auto) 0.1, Sodium 132 L, Potassium 4.0, Chloride 98, Carbon Dioxide 29, Anion Gap 9.0, BUN 22 H, Creatinine 0.80, Estimated Creat Clear 56, Estimated GFR 72, Est GFR ( Amer) 87, Glucose 107 H, Calcium 10.0, Magnesium 1.8, Total Bilirubin 0.8, AST 36, ALT 28, Alkaline Phosphatase 60, Troponin I < 0.01, Total Protein 7.9, Albumin 4.7, Globulin 3.2, Albumin/Globulin Ratio 1.5, Lipase 36, A cetaminophen < 10 L Orders (Tests/Meds): ED MEDICATIONS Discontinued Medications Generic Name Dose Route Start Last Admin Trade Name Freq PRN Reason Stop Dose Admin Iopamidol 80 ml 07/11/25 15:27 07/11/25 15:29 Iopamidol-370 (76%);100ml Bottle IV 07/11/25 15:28 80 ml ONCE ONE Administration Orphenadrine Citrate 60 mg 07/11/25 15:07 07/11/25 15:27 Orphenadrine Citrate 60mg/2ml Vial IV 07/11/25 15:08 60 mg ONCE ONE Administration Sodium Chloride 10 ml 07/11/25 15:27 07/11/25 15:29 0.9 % Sodium Chloride 50 Ml Vial IV 07/11/25 15:28 10 ml ONCE ONE Administration ORDERS Category Date Time Status CT angio head Stat Cat Scan 07/11/25 14:[address] angio neck Stat Cat Scan 07/11/25 14:[address] head/brain wo con Stat Cat Scan 07/11/25 14:11 Completed Acetaminophen Stat Lab 07/11/25 14:27 Completed CBC [Complete Blood Count Auto Diff] Stat Lab 07/11/25 14:27 Completed Comprehensive Metabolic Panel Stat Lab 07/11/25 14:27 Completed Lipase Stat Lab 07/11/25 14:27 Completed Magnesium Stat Lab 07/11/25 14:27 Completed Trop I [Troponin I] Stat Lab 07/11/25 14:27 Completed Troponin I Q3H Lab 07/11/25 17:15 Ordered Troponin I Q3H Lab 07/11/25 20:15 Ordered Medical Decision Narrative: patient is a 64-year-old female presenting to the emergency department for evaluation of dizziness after a fall a few days ago. Patient is hemodynamically stable and nontoxic-appearing upon arrival, afebrile. Differential diagnosis includes dizziness, vertigo, among. Workup will be conducted with hematologic labs, specific imaging, provocative tests. Initial inventions include crystalloid bolus, analgesics. Initial workup reviewed by oh hematologic labs are remarkable for. White blood cell count of 13.9, nonactionable electrolytes and kidney function troponin less than 0.01. Imaging showed no acute findings of CT head without contrast and angio head and neck. Patient was seen by Dr. Avelar and she and he discussed the spasms in her coming off of her benzo. She is going to talk to her PCP about this. Patient is safe for discharge home. Critical Care <Breanna Barahona (ED), BALANCE WHEEL SCREW HOLE TAPPER - Last Filed: 07/11/25 16:24> Critical Care Time Critical Care Time: No
--- OUTSIDE RECORDS SUMMARY | 2025-07-11 14:06 | XMS_ITS | Clinical Summary ---
Author Organization [facility] Address [address] [place] [address] Care Team Providers Care Manager Of Patient Name Role Phone Red Tamayo MD Primary Care Provider [phone] Allergies Active Allergy Reactions Criticality Noted Date [...] 11/23/19 Active Narcan 4 MG/0.1ML nasal spray [place] Nasal Use as directed in case of overdose 08/20/20 Active vitamin D (ERGOCALCIFEROL) 1.25 MG (75540 UT) capsule capsule Take 1 capsule by [...] mammogram report. [place]. [address] NOTE: If a biopsy is performed on [...] distortion or clustered microcalcifications. us Shannon Campbell ADHESIVE BANDAGE MACHINE OPERATOR IMG MAMMOGRAPHY ORDERABL ES Final Result * Hepatitis panel, acute (08/06/2017 9:40 AM EST) Pathologist [facility] Hep A IgM Negative Negative 08/10/2017 5:11 [...] with a HCV Nucleic Acid Amplification test ([id number]). Blood Venipuncture / Unknown 08/06/2017 9:40 AM EST 08/06/2017 10:11 AM EST Narrative [facility] - 08/10/2017 5:11 AM EST Performed at: - [address] [id number] [employer]: Costa Munoz PhD, Phone: [phone] Kamlesh Abdullahi MD LAB BLOOD ORDERABLES Final Re sult [facility] [address] [place] [id number], * (ABNORMAL) Lipid Panel (08/06/2017 9:40 AM EST) [facility] Total Cholesterol 234(H) 0 - 199 mg/dL 08/06/2017 10:31 AM EST [facility] Triglycerides 97 <150 mg/dL 08/06/2017 10:31 AM EST [facility] HDL Cholesterol 61(H) 40 - 60 mg/dL 08/06/2017 10:31 AM EST [facility] LDL Cholesterol 154(H) 0 - 99 mg/dL 08/06/2017 10:31 AM EST [facility] VLDL Cholesterol 19.4 mg/dL 08/06/20 17 10:31 AM EST [facility] LDL/HDL Ratio 2.52 08/06/2017 10:31 AM EST [facility] Blood Venipuncture / Unknown 08/06/2017 9:40 AM EST 08/06/2017 10:11 AM EST Narrative [facility] - 08/06/2017 10:31 AM EST Reference ranges for triglycerides, VLDL cholesterol, LDL cholesterol, and HDL cholesterol are not true population normal ranges but are threshold levels for increased risk of coronary artery disease established by ATP III guidelines from the National Cholesterol Education Program. us Kamlesh Abdullahi MD LAB BLOOD ORDERABLES Final Re sult [facility]
[address] [place] [address], from Last 3 Months or Most Recently Relevant to Health Maintenance Additional Health Concerns Infection Onset Date Last Indicated COVID (History) 03/11/2021 03/11/2021 Insurance MEDICAID [place] Advance Directives Documents on File Type Date Recorded Patient Switchman Supervisor Expl anation PATIENT ADVANCE DIRECTIVES - SCAN 03/17/2023 3:46 PM PATIENT ADVANCE DIRECTIVES, BHOWEN, 06/13/2017 PATIENT ADVANCE DIRECTIVES - SCAN 03/17/2022 12:56 PM ADVANCE DIRECTIVE PATIENT ADVANCE DIRECTIVES - SCAN 02/13/2022 10:35 AM ADVANCE DIRECTIVE PATIENT ADVANCE DIRECTIVES - SCAN 03/05/2021 10:34 AM PATIENT ADVANCE DIRECTIVE, BHOWEN, 06/13/2017 PATIENT ADVANCE DIRECTIVES - SCAN 11/27/2020 8:49 AM Care Teams Manager Of Patient Relationship Specialty Start Date End Date Red Tamayo MD [address] [place] [address] PCP - General Pain Medicine 12/29/23
--- OUTSIDE RECORDS SUMMARY | 2025-07-11 14:07 | XMS_ITS | Referral Summary ---
Author Organization [facility] ([place], [place], [place], [place], [place]) Address [address] [place] [address] Care Team Providers Care Mitigation Supervisor Name Role Phone Jaelyn Renteria APRN Primary Care Provider [phone] Vanessa Green MD Unavailable Allergies Active Allergy [...] High 12/16/2012 Other reaction(s): Confusion, Flushing, Hallucinations Xmvckymk-Gjshsbvbhc-Uqn ymyxin Itching High 10/07/2022 Other Anxiety Low [...] 150 mg by mouth every morning. 09/22/19 23 Active diazePAM (VALIUM) 5 MG tablet Take 10 mg by mouth 2 (two) times daily. 09/21/19 23 Active oxyCODONE-acet aminophen (PERCOCET) 7.5-325 mg per tablet Take 1 tablet by mouth 3 (three) times daily. 09/09/19 23 Active valACYclovir (VALTREX) 1000 MG tablet Take [...] Date Pj rded Speak language other than Yakut at home Not on file 09/11/2023 Want [...] Plan of Treatment Not on file Insurance Care Teams Mitigation Supervisor Relationship Specialty Start Date End Date Jaelyn Renteria, WEDDING DAY COORDINATOR [address] [place] [address] PCP - General Family Medicine 10/06/22 Vanessa Green MD [address] [place] [phone] Assistant Coach Rheumatology 10/06/22
--- OUTSIDE RECORDS SUMMARY | 2025-07-11 14:07 | XMS_ITS | Patient Health Record ---
Author Organization [facility] Address [address] [place] [address] [address] [place] [address] Care Team Providers Care Plastic Technician Name Role Phone Jaelyn Guerrero Unavailable Unavailable [...] Status Risk Notes Problem Chronic pain syndrome (979588629) Chronic pain syndrome (G89.4) Active confirmed Problem Complex regional pain syndrome type I of right lower limb (disorder) (60617437003583 9) Complex regional pain syndrome I of right lower limb (G90.521) Active confirmed Problem Complex regional pain syndrome of lower limb (disorder) (941038847) Complex regional pain syndrome I of unspecified lower limb (G90.529) Active confirmed Problem Post-laminectom y syndrome (79287179) Postlaminectomy syndrome, not elsewhere classified (M96.1) Active confirmed Problem Long-term current use of drug therapy (158287679) Other terminal carman (current) drug therapy (Z79.899) Active confirmed Problem Lumbar spondylosis (956829805) lumbar spondylosis (M47.816) Active confirmed Problem Cervical spondylosis (954283613) cervical spondylosis (M47.812) Active confirmed Plan Of Treatment Pending Test Test Name Order Date Urine Test LCMS Definitive 08/16/2023 Insurance Providers Payer Name Payer Address Payer Phone Subscriber Number Group Number Insured Name Patient Relationship to Insured Coverage Start Date Coverage End Date [place] Medicaid [address] [place] [phone] [id number] Diamond Damon Self - patient is the insured 9 Medical (General) History Medical History History ICD Code anxiety-/Jaelyn Renteria HYDROLOGY PROFESSOR asthma-1979/Jaelyn Renteria HYDROLOGY PROFESSOR bipolar disorder-1993/Jaelyn Renteria HYDROLOGY PROFESSOR COPD-1979/Jaelyn Renteria HYDROLOGY PROFESSOR fibromyalgia-1989/Jaelyn Godkelley HYDROLOGY PROFESSOR depression-/Jaelyn Renteria HYDROLOGY PROFESSOR [id number] an issue/Jaelyn Martinez odkelley HYDROLOGY PROFESSOR Stroke-1993/Jaelyn Renteria HYDROLOGY PROFESSOR Hypothyroidism-1979/Jaelyn Renteria HYDROLOGY PROFESSOR [id number]/Jaelyn Renteria HYDROLOGY PROFESSOR Degenerative disc disease-1999/Jaelyn Go dby HYDROLOGY PROFESSOR Surgical History Surgery Date(Month/Year) Left ankle surgery x2/ [facility] / with a 3 day stay 1999 Appendectomy/ [facility] / overnigh t stay 2003 Cholecystectomy/ [facility] / overn ight stay 2002 LT Hand Surgery x2/ [facility] / wi th a 3 day stay 1976 Neck (cervical discetomy)Dr. Marc/ [facility] / over night stay 2005 RT Shoulder / [facility] / (OP) 198 2 Tonsillectomy/ [facility] / (OP) 19 66 Tubal abdominal ligation / in [place] / (O P) 1981 Bladder lift / [facility] / Dr. Daniel Crawford / (OP) 2005 Ovarien Cyst Rupture/ Keny[facility] A Elvis in [facility] / with a 3-4 day stay 1987 oophorectomy (left)/ [facility] / ( OP) 2005 [place] teeth/ Dr. Hess / (OP) 1976 Hernia repair / [facility] / (OP) 03/14/2021 Hospitalization History Reason Date(Month/Year) Bowel obstruction / [facility] / treated and rel eased 02/2021
--- OUTSIDE RECORDS SUMMARY | 2025-07-11 14:08 | XMS_ITS | Encounter Summary ---
Author Organization [employer] ([place], [place], [place], [place], [place]) Address [address] [place] [address] Care Team Providers Care Gauge Inspector Name Role Phone Jaelyn Renteria APRN Primary Care Provider [phone] Vanessa Green MD Unavailable Encounter Details Date Type Department Care Team (Late st Contact Info) Description 04/13/2019 Transcribed Document [facility] [place] [facility] [place] [place] [address] ProviderLexi MD [address] [place] [address] Social History Tobacco Use Types Packs/Day [...] on filedocumented in this encounter Care Teams Gauge Inspector Relationship Specialty Start Date End Date Jaelyn Renteria, CANDLEMAKING LABORER [address] [place] [address] PCP - General Family Medicine 10/06/22 Vanessa Green MD [address] [place] [phone] Manager Book Rheumatology 10/06/22 documented as of this encounter
--- OUTSIDE RECORDS SUMMARY | 2025-07-11 14:08 | XMS_ITS | Encounter Summary ---
Author Organization [employer] ([place], [place], [place], [place], [place]) Address [address] [place] [address] Care Team Providers Care Manager Inventory Name Role Phone Jaelyn Renteria APRN Primary Care Provider Vanessa Green MD Unavailable Encounter Details Date Type Department Care Team (Late st Contact Info) Description 01/05/2019 Transcribed Document [facility] [place] [address] ProviderLexi MD [address] [place] [address] Social History Tobacco Use Types Packs/Day [...] Lexi ProviderMD - 01/05/2019 2:12 PM CDT [address] [address] LILI DAMON :1960 Visit Time:01/05/2019 [...] MD-GAE When Only if needed Where: [address] [facility] [address] [place] [id number]- Medications What How Much When Instructions Next [...] a broken bone while taking this medicine termination clerk or more than once per day. What [...] by infection with Helicobacter pylori (H. pylori). Fvua-mfh-bfqqxek (OTC) omeprazole is used to help control [...] medicine exactly as directed. Use Prilosec OTC (dkje-rhz-jwgqwar) exactly as directed on the label, or [...] may report side effects to FDA at 1-225-YCT-3650. What other drugs will affect omeprazole? Sometimes [...] may affect omeprazole. This includes prescription and ucup-ftv-dosgsml medicines, vitamins, and herbal products. Not all [...] to ensure that the information provided by [employer]. ('[employer]') is accurate, up-to-date, and complete, but no guarantee is made to that effect. Drug information contained herein may be time sensitive. [employer] information has been compiled for use by healthcare practitioners and consumers in the [place] and therefore [employer] does not warrant that uses outside of the [place] are appropriate, unless specifically indicated otherwise. [employer] drug information does not endorse drugs, diagnose patients or recommend therapy. [employer] drug information is an informational resource designed [...] effective or appropriate for any given patient. O[employer] does not assume any responsibility for any aspect of healthcare administered with the aid of information Oyster provides. The information contained herein is not intended to cover all possible uses, directions, precautions, warnings, drug interactions, allergic reactions, or adverse effects. If you have questions about the drugs you are taking, check with your doctor, nurse or pharmacist. Copyright 5626-4497 [employer]. Version: 19.01. Revision Date: 02/21/2018. Emergency Awareness [...] Assistance with quitting is available by contacting 3-950-CHND-NOW. This is a free resource providing counseling, [...] Be sure to sign up for the [facility] patient portal, which gives you 22/03 access to your medical information ??? including these discharge instructions ??? using your computer, smartphone, or tablet. Just go to Protection Plus to get started. Questions? Call . Test Results Laboratory or Other Results This Visit (last charted value for your 01/05/2019 visit) No Laboratory or Other Results This Visit Patient Name:LILI DAMON I have received this information and was given the opportunity to ask questions. Patient/Department Manager Name: Patient/Department Manager Signature: Relationship to Patient: Clinician/Hospital Department Manager Signature: Date: documented in this encounter Plan of Treatment Not on file documented as of this encounter Visit Diagnoses Not on filedocumented in this encounter Care Teams Manager Inventory Relationship Specialty Start Date End Date Jaelyn Renteria, BAR GAUGER AND LUBRICATOR TENDER [address] [place] [address] PCP - General Family Medicine 10/06/22 Vanessa Green MD [address] [place] [phone] Bowling Ball Marker Rheumatology 10/06/22 documented as of this encounter
--- OUTSIDE RECORDS SUMMARY | 2025-07-11 14:08 | XMS_ITS | Encounter Summary ---
Author Organization [facility] Address [address] [place] [address] Care Team Providers Care Presidential Helicopter Crew Chief Name Role Phone Red Tamayo MD Primary Care Provider [phone] Encounter Details Date Type Department Care Team (Late st Contact Info) Description 09/07/2017 Telephone [facility]IMARY [facility] [address] [phone] Kamlesh Abdullahi MD [address] [address] Social History Tobacco Use Types [...] documented as of this encounter Care Teams Presidential Helicopter Crew Chief Relationship Specialty Start Date End Date Red Tamayo MD [address] [place] [address] PCP - General Pain Medicine 12/29/23 documented as of this encounter
--- OUTSIDE RECORDS SUMMARY | 2025-07-11 14:08 | XMS_ITS | Encounter Summary ---
Author Organization [employer] ([place], [place], [place], [place], [place]) Address [address] [place] [address] Care Team Providers Care Oven Builder Name Role Phone Jaelyn Renteria APRN Primary Care Provider Vanessa Green MD Unavailable Encounter Details Date Type Department Care Team (Late st Contact Info) Description 01/05/2019 Transcribed Document [facility] [place] [address] ProviderLexi MD [address] [place] [address] Social History Tobacco Use Types Packs/Day [...] Endo IntraOp Summary Primary Physician: GILBERT OLSON MD-[facility] Finalized Date/Time: 01/05/19 13:55:28 Pt. Name: LILI DAMON D.O.B./Sex: 1960 Female Med Rec #: [id number] Physician: GILBERT OLSON MD-[facility] Financial #: [id number] Pt. Type: O Room/Bed: [facility] Admit/Disch: 01/05/19 12:03:00 - Institution: [facility] Endo - Case Attendance Entry 1 Entry 2 Entry 3 Case Attendee YOUSIF OLSON YVONNE D., RN STEFFI GONZALEZ MD KAREN, MD-GAE Role Performed Surgeon/Proceduralist, Antisqueak Chalker, First Anesthesiologist First Time In 01/05/19 13:22:00 01/05/19 13:22:00 01/05/19 13:22:00 Time Out 01/05/19 13:57:00 01/05/19 13:57:00 01/05/19 13:49:00 Procedure Colonoscopy, Colonoscopy, Colonoscopy, Esophagogastroduodenosco Esophagogastroduodenosco Esophagogastroduodenosco py, Duodenal Biopsy py, Duodenal Biopsy py, Duodenal Biopsy Other Attendee Superficial Wound Closed By: Last Modified By: CORNELIA DODD, CORNELIA CARDONA, CORNELIA CARDONA, RN 01/05/19 13:55:26 01/05/19 13:55:26 01/05/19 13:55:26 Entry 4 Entry 5 Case Attendee CRISTIAN ASHFORD KAREN KIM, ATHLETIC TURF WORKER Role Performed Antisqueak Chalker, First ATHLETIC TURF WORKER/Nurse Cath Lab Time In 01/05/19 13:22:00 01/05/19 13:49:00 Time Out 01/05/19 13:57:00 01/05/19 13:57:00 Procedure Colonoscopy, Colonoscopy Esophagogastroduodenosco py, Duodenal Biopsy Other Attendee Superficial Wound Closed By: Last Modified By: CORNELIA DODD, RN CORNELIA DODD, RN 01/05/19 13:55:26 01/05/19 13:55:26 [facility] Endo - Case Attendance Audit 01/05/19 13:55:26 Steel Checker: HERBERT Modifier: HERBERT 1 <+> Time Out 1 <*> Procedure Colonoscopy, Esophagogastroduodenoscopy, Duodenal Biopsy 2 <+> Time Out 2 <*> Procedure Colonoscopy, Esophagogastroduodenoscopy, Duodenal Biopsy 3 <*> Procedure Colonoscopy, Esophagogastroduodenoscopy, Duodenal Biopsy 4 <+> Time Out 4 <*> Procedure Colonoscopy, Esophagogastroduodenoscopy, Duodenal Biopsy 5 <+> Time Out 5 <*> Procedure Colonoscopy 01/05/19 13:52:32 Steel Checker: HERBERT Modifier: SHERMAYD 1 <*> Procedure Duodenal Biopsy 3 <+> Time Out 3 <*> Procedure Colonoscopy, Esophagogastroduodenoscopy, Duodenal Biopsy <+> 5 Case Attendee <+> 5 Role Performed <+> 5 Time In <+> 5 Procedure 01/05/19 13:32:03 Steel Checker: HERBERT Modifier: SHERMAYD <+> 1 Procedure 2 <*> Procedure Colonoscopy, Esophagogastroduodenoscopy 3 <*> Procedure Colonoscopy, Esophagogastroduodenoscopy 4 <*> Procedure Colonoscopy, Esophagogastroduodenoscopy 01/05/19 13:25:00 Steel Checker: HERBERT Modifier: SHERMAYD 2 <*> Procedure Colonoscopy, Esophagogastroduodenoscopy 3 <*> Procedure Colonoscopy, Esophagogastroduodenoscopy 4 <+> Time In 4 <*> Procedure Colonoscopy, Esophagogastroduodenoscopy 01/05/19 13:24:03 Steel Checker: HERBERT Modifier: SHERMAYD <+> 4 Case Attendee <+> 4 Role Performed <+> 4 Procedure [facility] End[facility] - Case Times Entry 1 Patient In Room Time 01/05/19 13:22:00 Out Room Time 01/05/19 13:57:00 Anesthesia Start Time 01/05/19 13:22:00 Stop Time 01/05/19 13:54:00 Anesthesia Ready 01/05/19 13:23:00 Surgery / Procedure Times Start Time 01/05/19 13:30:00 Stop Time 01/05/19 13:54:00 Last Modified By: CORNELIA DODD, RN 01/05/19 13:55:11 [facility] - Case Times Audit 01/05/19 13:55:11 Steel Checker: HERBERT Modifier: SHERMAYD <+> 1 Out Room Time <+> 1 Stop Time <+> 1 Stop Time 01/05/19 13:30:14 Steel Checker: HERBERT Modifier: SHERMAYD <+> 1 Start Time 01/05/19 13:23:41 Steel Checker: HERBERT Modifier: ANNAYD <+> 1 Anesthesia Ready E Endo - [...] Radio Frequency Ablation Last Modified By: CORNELIA DODD, JOB 01/05/19 13:25:10 [facility] Endo - Fire Risk Assessment Entry 1 Fire Info Surgical Site or 1- Yes Incision Above the Xyphoid Open O2 Source 1- Yes (Mask or Cannula) Available Ignition 1- Yes (ESU, Laser, Light Source) Fire Risk 3 Assessment Score Fire Score Fire Risk Yes Assessment Complete Fire Risk CORNELIA DODD, commercial construction estimator Verified By Fire Risk 01/05/19 13:24:00 Assessment Verified Date/Time Fire Risk High Risk Protocol Yes Implemented Standard Fire Yes Safety Precautions Followed Last Modified By: CORNELIA DODD, RN 01/05/19 13:24:29 [facility] Endo - General Case Gis Professor 1 Case Information OR Endo 04 E Case Level 1 Room Verified Yes Wound Class III - Contaminated Specialty SN Gastroenterology Anesthesia Type MAC ASA Class 3 Diagnosis Preop Diagnosis Z12.11/K59.00/R93.3 Postop Diagnosis gastritis Last Modified By: CORNELIA DODD RN 01/05/19 13:37:17 [facility] - General Case Data Audit 01/05/19 13:37:17 Steel Checker: HERBERT Modifier: HERBERT 1 <*> OR Endo 03 SJE 1 <+> Specialty 1 <+> ASA Class 1 <+> Anesthesia Type 1 <+> Postop Diagnosis 1 <+> Room Verified E Endo - Intraoperative Assessment Entry 1 Valid [...] Comment Last Modified By: CORNELIA DODD, CORNELIA CARDONA RN 01/05/19 13:25:56 01/05/19 13:26:28 [facility] - Intraoperative Equipment Audit 01/05/19 13:26:28 Steel Checker: HERBERT Modifier: HERBERT <+> 2 Photo <+> 2 Video <+> 2 Blood Pressure Location <+> 2 Pulse Oximeter Probe Site <+> 2 Flexible Endoscopes Used <+> 2 Scope Serial Number/Identification Number [facility] Endo - Patient Positioning Entry 1 Procedure [...] Endo - Patient Positioning Audit 01/05/19 13:32:04 Steel Checker: HERBERT Modifier: HERBERT 1 <*> Procedure Esophagogastroduodenoscopy [facility] - Sign In Entry 1 Patient, Site, Yes Procedure Identified Surgical Consent Yes Confirmed Surgical Site N/A Marked by person performing procedure Allergies Yes Airway Hypothermia Risk No Warming Measures No Taken Last Modified By: CORNELIA DODD, RN 01/05/19 13:24:57 [facility] Endo - Sign Out Entry 1 RN [...] extraneous objects Last Modified By: CORNELIA DODD, RN 01/05/19 13:54:57 [facility] - Surgical Procedures Entry 1 Entry 2 Entry 3 Procedure Colonoscopy Esophagogastroduodenosco Duodenal Biopsy py Modifiers Additional Procedure Description Primary Procedure No Yes No Primary Surgeon WHITNEY OLSON JENNINGS-CONKLIN, KAREN, MD-GAE KAREN, MD-GAE KAREN, MD-GAE Start 01/05/19 13:40:00 01/05/19 13:30:00 01/05/19 13:30:00 Stop 01/05/19 13:54:00 01/05/19 13:34:00 01/05/19 13:34:00 [facility] 01/05/19 13:46:00 Cecum Reached Anesthesia Type MAC MAC MAC Specialty SN Gastroenterology SN Gastroenterology SN Gastroenterology Wound Class III - Contaminated II - Clean-Contaminated II - Clean-Contaminated Last Modified By: CORNELIA DODD, RN CORNELIA DODD, RN CORNELIA DODD, RN 01/05/19 13:54:47 01/05/19 13:36:44 01/05/19 13:36:44 [facility] - Surgical Procedures Audit 01/05/19 13:54:47 Steel Checker: HERBERT Modifier: SHERMAYD 1 <*> Procedure Colonoscopy 1 <+> Stop 01/05/19 13:47:41 Steel Checker: HERBERT Modifier: SHERMAYD 1 <*> Procedure Colonoscopy 1 <+> Physician States Cecum Reached 01/05/19 13:39:14 Steel Checker: HERBERT Modifier: ANDREWMAYD 1 <*> Procedure Colonoscopy 1 <+> Specialty 1 <*> Start 01/05/19 13:30:00 01/05/19 13:36:44 Steel Checker: HERBERT Modifier: SHERMAYD 2 <*> Procedure Esophagogastroduodenoscopy 2 <+> Stop 3 <*> Procedure Duodenal Biopsy 3 <+> Stop 01/05/19 13:31:59 Steel Checker: HERBERT Modifier: SHERMAYD <+> 1 Start 2 [...] Endo - Time Out Audit 01/05/19 13:32:05 Steel Checker: HERBERT Modifier: HERBERT 1 <*> Procedure to be Performed Colonoscopy, Esophagogastroduodenoscopy Case Comments <None> Finalized By: CORNELIA DODD, RN Document Signatures Signed By: CORNELIA DODD, RN 01/05/19 13:55 Electronically signed by [facility] Conversion Marketing Analytics Lead Cerner at 12/14/2022 12:10 PM CDT documented in this encounter Plan of Treatment Not on file documented as of this encounter Visit Diagnoses Not on filedocumented in this encounter Care Teams Oven Builder Relationship Specialty Start Date End Date Jaelyn Renteria, FACTORY ASSEMBLER [address] [place] [address] PCP - General Family Medicine 10/06/22 Vanessa Green MD [address] [place] [phone] Wireless Telegrapher Rheumatology 10/06/22 documented as of this encounter
--- OUTSIDE RECORDS SUMMARY | 2025-07-11 14:08 | XMS_ITS | Encounter Summary ---
Author Organization [employer] ([place], [place], [place], [place], [place]) Address [address] [place] [address] Care Team Providers Care Extrusion Operator Name Role Phone Jaelyn Renteria APRN Primary Care Provider Vanessa Green MD Unavailable Encounter Details Date Type Department Care Team (Late st Contact Info) Description 01/05/2019 Transcribed Document [facility] [place] [facility] [place] [address] ProviderLexi MD [address] [place] [address] Social History Tobacco Use Types Packs/Day [...] Lexi ProviderMD - 01/05/2019 2:37 PM CDT [address] [address] LILI DAMON :1960 Visit Time:01/05/2019 [...] before breakfast on empty stomach Where: [address] [facility] [address] [place] [address]- Medications What How Much When Instructions Next [...] Garlic and onions. ? Spicy foods. ? [place] fruits, including oranges, rhianna, or limes. ? [...] 02/01/2009 Document Revised: 11/07/2012 Document Reviewed: 05/09/2016 [employer] Patient Education ?? 2017 [employer] Esophagogastroduodenoscopy, Care After Introduction Refer to [...] times a day. General instructions ??? Take wkld-yjc-ykrsaab and prescription medicines only as told by [...] to digest. ? Rest often. ??? Take izki-hfc-sswvpdv or prescription medicines only as told by [...] 09/18/2011 Document Revised: 05/10/2017 Document Reviewed: 05/10/2017 [employer] Patient Education ?? 2017 [employer]. omeprazole (oh MEP ra zol) FIRST Omeprazole, [...] a broken bone while taking this medicine terminal block assembler or more than once per day. What [...] by infection with Helicobacter pylori (H. pylori). Snna-wst-wpmuiwa (OTC) omeprazole is used to help control [...] medicine exactly as directed. Use Prilosec OTC (ovhi-hti-uiaseby) exactly as directed on the label, or [...] may report side effects to FDA at 3-858-XTF-0339. What other drugs will affect omeprazole? Sometimes it is not safe to use certain medications at the same time. Some drugs can affect your blood levels of other drugs you take, which may increase side effects or make the medications less effective. Tell your doctor about all your current medicines. Many drugs can affect omeprazole, especially: ? clopidogrel; ?? methotrexate; ?? [place]'s wort; or ?? an antibiotic--amoxicillin, clarithromycin, rifampin. This list is not complete and many other drugs may affect omeprazole. This includes prescription and jfrt-jqb-xkftmor medicines, vitamins, and herbal products. Not all [...] to ensure that the information provided by [employer]. ('[employer]') is accurate, up-to-date, and complete, but no guarantee is made to that effect. Drug information contained herein may be time sensitive. [employer] information has been compiled for use by healthcare practitioners and consumers in the [place] and therefore [employer] does not warrant that uses outside of the [place] are appropriate, unless specifically indicated otherwise. [employer] drug information does not endorse drugs, diagnose patients or recommend therapy. [employer] drug information is an informational resource designed [...] effective or appropriate for any given patient. [employer] does not assume any responsibility for any aspect of healthcare administered with the aid of information [employer] provides. The information contained herein is not intended to cover all possible uses, directions, precautions, warnings, drug interactions, allergic reactions, or adverse effects. If you have questions about the drugs you are taking, check with your doctor, nurse or pharmacist. Copyright 7965-4337 [employer]. Version: 19.01. Revision Date: 02/21/2018. Emergency Awareness [...] Assistance with quitting is available by contacting 5-178-SNSINOW. This is a free resource providing counseling, support, and referral. Or you may contact your personal physician. [employer] Suicide Prevention Lifeline: The National Suicide Prevention [...] Be sure to sign up for the [facility] patient portal, which gives you 22/03 access to your medical information ??? including these discharge instructions ??? using your computer, smartphone, or tablet. Just go to ME911 to get started. Questions? Call . Test Results Laboratory or Other Results This Visit (last charted value for your 01/05/2019 visit) No Laboratory or Other Results This Visit Patient Name:JACYLILI ESPANA I have received this information and was given the opportunity to ask questions. Patient/Clinical Research Analyst Name: Patient/Clinical Research Analyst Signature: Relationship to Patient: Clinician/Hospital Clinical Research Analyst Signature: Date: documented in this encounter Plan of Treatment Not on file documented as of this encounter Visit Diagnoses Not on filedocumented in this encounter Care Teams Extrusion Operator Relationship Specialty Start Date End Date Jaelyn Renteria, MANAGER GAMING [address] [place] [address] PCP - General Family Medicine 10/06/22 Vanessa Green MD [address] [place] [phone] Administrative Receptionist Rheumatology 10/06/22 documented as of this encounter
--- OUTSIDE RECORDS SUMMARY | 2025-07-11 14:08 | XMS_ITS | Encounter Summary ---
Author Organization [employer] ([place], [place], [place], [place], [place]) Address [address] [place] [address] Care Team Providers Care Grocery Packer Name Role Phone Jaelyn Renteria APRN Primary Care Provider Vanessa Green MD Unavailable Encounter Details Date Type Department Care Team (Late st Contact Info) Description 01/05/2019 Transcribed Document [facility] [place] [address] ProviderLexi MD [address] [place] [address] Social History Tobacco Use Types Packs/Day [...] Endo PreOp Summary Primary Physician: GILBERT OLSON MD-[facility] Finalized Date/Time: 01/05/19 13:14:29 Pt. Name: LILI DAMON D.O.B./Sex: 1960 Female Med Rec #: [id number] Physician: GILBERT OLSON MD-[facility] Financial #: [id number] Pt. Type: O Room/Bed: [facility]/ Admit/Disch: 01/05/19 12:03:00 - Institution: [facility] PreOp Case Times Entry 1 In Preop 01/05/19 12:58:00 Ready for Holding n/a Room Patient Ready for 01/05/19 13:14:00 Surgery Patient Out of Preop 01/05/19 13:14:00 Patient Out of n/a Holding Room [facility] PreOp Case Times Audit 01/05/19 13:14:28 Model And Mold Maker Plaster: BICKNEA Modifier: [email or web address] <+> 1 Patient Out of Preop <+> 1 Patient Ready for Surgery Finalized By: Albina Dove RN Document Signatures Signed By: Albina Dove RN 01/05/19 13:14 Electronically signed by Eugenie [facility] Conversion Counselor Supervisor Cerner at 12/14/2022 11:52 AM CDT documented in this encounter Plan of Treatment Not on file documented as of this encounter Visit Diagnoses Not on filedocumented in this encounter Care Teams Grocery Packer Relationship Specialty Start Date End Date Jaelyn Renteria, MECHANIC'S ASSISTANT [address] [place] [address] PCP - General Family Medicine 10/06/22 Vanessa Green MD [address] [place] [phone] Lead Network Engineer Rheumatology 10/06/22 documented as of this encounter
--- OUTSIDE RECORDS SUMMARY | 2025-07-11 14:08 | XMS_ITS | Clinical Summary ---
Author Organization [employer] ([place], [place], [place], [place], [place]) Address [address] [place] [address] Care Team Providers Care Research Associate Quality Control Qc Name Role Phone Jaelyn Renteria APRN Primary [...] High 12/16/2012 Other reaction(s): Confusion, Flushing, Hallucinations Grpolnfn-Dlvcqyftaq-Sds ymyxin Itching High 10/07/2022 Other Anxiety Low [...] Date Pj rded Speak language other than Citizen [place] at home Not on file 09/11/2023 Want [...] Risk Screening 08/30/2024 COVID-19 VACCINE ( - 2023- season) 2025 Influenza Vaccine (#1) 2025 DTAP/TDAP/TD VACCINES (2 - Td or Tdap) 03/06/2027 Respiratory Syncytial Virus (RSV) Adult or (1 - 1-dose 75+ series) 12/03/2034 Insurance [place], [place] [id number] [place]ICA[place] Care Teams Research Associate Quality Control Qc Relationship Specialty Start Date End Date Jaelyn Renteria, PNEUMATIC TESTER [address] [place] [address] PCP - General Family Medicine 10/06/22 Vanessa Green MD [address] [place] [phone] Donor Services Specialist Rheumatology 10/06/22
--- OUTSIDE RECORDS SUMMARY | 2025-07-11 14:08 | XMS_ITS | Encounter Summary ---
Author Organization [employer] ([place], [place], [place], [place], [place]) Address [address] [place] [address] Care Team Providers Care Sustainability Project Manager Name Role Phone Jaelyn Renteria APRN Primary Care Provider [phone] Vanessa Green MD Unavailable Encounter Details Date Type Department Care Team (Late st Contact Info) Description 01/05/2019 Transcribed Document [facility] [place] [facility] [place] [address] ProviderLexi MD [address] [place] [address] Social History Tobacco Use Types Packs/Day [...] Endo PACU Summary Primary Physician: GILBERT OLSON MD-[facility] Finalized Date/Time: 01/05/19 14:45:28 Pt. Name: LILI DAMON D.O.B./Sex: 1960 Female Med Rec #: [id number] Physician: GILBERT OLSON MD-[facility] Financial #: [id number] Pt. Type: O Room/Bed: [facility] [place] Admit/Disch: 01/05/19 12:03:00 - Institution: [facility] PACU Case Times Entry 1 In PACU I 01/05/19 14:00:00 Ready for PACU 01/05/19 14:36:00 Discharge Discharge from PACU 01/05/19 14:45:00 I [facility] PACU Case Times Audit 01/05/19 14:45:24 Padded Products Inspector Trimmer: [id number] Modifier: [id number] <+> 1 Discharge from PACU I 01/05/19 14:43:14 Padded Products Inspector Trimmer: [id number] Modifier: [id number] <+> 1 Ready for PACU Discharge Finalized By: Alee Rose RN Document Signatures Signed By: Alee Rose RN 01/05/19 14:45 Electronically signed by Eugenie [facility] Conversion Gemologist Cerner at 12/14/2022 11:51 AM CDT documented in this encounter Plan of Treatment Not on file documented as of this encounter Visit Diagnoses Not on filedocumented in this encounter Care Teams Sustainability Project Manager Relationship Specialty Start Date End Date Jaelyn Renteria, LAUNDRY MACHINE OPERATOR [address] [place] [address] PCP - General Family Medicine 10/06/22 Vanessa Green MD [address] [place] [phone] Embossing Press Operator Molded Goods Rheumatology 10/06/22 documented as of this encounter
--- OUTSIDE RECORDS SUMMARY | 2025-07-11 14:08 | XMS_ITS | Encounter Summary ---
Author Organization [employer] ([place], [place], [place], [place], [place]) Address [address] [place] [address] Care Team Providers Care Cable Engineer Name Role Phone Jaelyn Renteria APRN Primary Care Provider Vanessa Green MD Unavailable Encounter Details Date Type Department Care Team (Late st Contact Info) Description 03/10/2019 Transcribed Document [facility] [place] Family Medicine [facility] [place] [address] ProviderLexi MD [address] [place] [address] Social History Tobacco Use Types Packs/Day [...] on filedocumented in this encounter Care Teams Cable Engineer Relationship Specialty Start Date End Date Jaelyn Renteria, PAD MACHINE OFFBEARER [address] [place] [address] PCP - General Family Medicine 10/06/22 Vanessa Green MD [address] [place] [phone] Steam Flattener Rheumatology 10/06/22 documented as of this encounter
--- OUTSIDE RECORDS SUMMARY | 2025-07-11 14:08 | XMS_ITS | Patient Health Record ---
Author Organization [facility] Address [address] [place] [address] Care Team Providers Care Hand Former Helper Name Role Phone Red Tamayo II Unavailable Jaelyn Guerrero Unavailable Unavailable Freeman Albarran Unavailable [phone] Allergies Allergen (clinical drug ingredient) Drug/Non Drug [...] Opiate (OPI) NEG Urine Test ANALYZER Reviewed date:07/04/2025 03:16:44 PM Interpretation:ALL NEG Performing Lab: Notes/Report: ALL NEG Amphetamine (AMP) NEG Benzodiazepine (EMANUEL) NEG Methadone (MTD) NEG Opiate (OPI) NEG Urine Test LCMS Definitive Reviewed date:11/15/2024 07:10:36 [...] Oxycodone (OXY) NEG Urine Test ANALYZER Reviewed date:03/27/2025 03:17:43 PM [...] Provider Speciality Pain Manag ement Referred Organization [facility] Referred Address [address] [place] [address],[address],[place] Referred Provider Specialty Neurological Surgery General Cricket Irizarry (Susannah),Elaine ty 08/02/2024 3:14:46 PM > Please contact the patient to schedule and fax confirmation of the scheduled appt to [phone]. If you need any additional information, please contact our office at [phone]. Thank You , Juan C (Susannah),Kenyatta 08/02/2024 3:30:35 PM > Faxed to facility, Margy Soria ([facility]) 09/18/2024 12:44:01 PM > [facility] and was advised this pt was scheduled for this on 10/10/24 but cx'd the appt due to transportation issues. Pt also no showed her last follow up with us and has not rescheduled. Closing referral but per [facility], she can reschedule whenever ready. Referral Priority Routine Medications Medication SIG (Take, Route, Frequency, Duration) Notes Start Date End Date Status acetaminophen-oxycodo ne 325 mg-7.5 mg 1 tab(s) orally 3 times a day; Duration: 28 days june 2025 RX DO NOT FILL SOONER THAN 28 DAYS, (OK TO FILL EARLY, ONLY IF CLOSED) Fax PA request to [phone] or [phone] Active SUMAtriptan 6 mg/0.5 mL as directed [...] Status Risk Notes Problem Chronic pain syndrome (898287581) Chronic pain syndrome (G89.4) Active confirmed Problem Complex regional pain syndrome type I of right lower limb (disorder) (30317919661738 9) Complex regional pain syndrome I of right lower limb (G90.521) Active confirmed Problem Complex regional pain syndrome of lower limb (disorder) (011723611) Complex regional pain syndrome I of unspecified lower limb (G90.529) Active confirmed Problem Post-laminectom y syndrome (56062054) Postlaminectomy syndrome, not elsewhere classified (M96.1) Active confirmed Problem Long-term current use of drug therapy (724298763) Other penitentiary (current) drug therapy (Z79.899) Active confirmed Problem Lumbar spondylosis (211638384) lumbar spondylosis (M47.816) Active confirmed Problem Cervical spondylosis (005816766) cervical spondylosis (M47.812) Active confirmed Vital Signs Heart Rate 79 /min 07/04/2025 Blood pressure diastolic 76 mm Hg 07/04/2025 Height 65 in 07/04/2025 Blood pressure systolic 136 mm Hg 07/04/2025 Weight 144 lbs 07/04/2025 BMI 23.96 kg/m2 07/04/2025 Encounters Encounter Location Date Provider Diagnosis [facility] [address] [place] [address] 07/24/2024 Red Tamayo 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 Z79.899 ; lumbar spondylosis M47.816 ; cervical spondylosis M47.812 ; Postlaminectomy syndrome, not elsewhere classified M96.1 and Complex regional pain syndrome I of right lower limb G90.521 [facility] [address] [place] [address] 09/26/2024 Red Tamayo Other penitentiary (current) drug therapy Z79.899 ; lumbar spondylosis M47.816 ; cervical spondylosis M47.812 ; Postlaminectomy syndrome, not elsewhere classified M96.1 and Complex regional pain syndrome I of right lower limb G90.521 [facility] [address] [place] [address] 11/20/2024 Red Tamayo 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 Z79.899 ; lumbar spondylosis M47.816 ; cervical spondylosis M47.812 ; Postlaminectomy syndrome, not elsewhere classified M96.1 and Complex regional pain syndrome I of right lower limb G90.521 [facility] [address] [place] [address] 01/30/2025 Red Tamayo 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 Z79.899 ; lumbar spondylosis M47.816 ; cervical spondylosis M47.812 ; Postlaminectomy syndrome, not elsewhere classified M96.1 and Complex regional pain syndrome I of right lower limb G90.521 [facility] [address] [place] [address] 03/27/2025 Red Tamayo 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 Z79.899 ; lumbar spondylosis M47.816 ; cervical spondylosis M47.812 ; Postlaminectomy syndrome, not elsewhere classified M96.1 and Complex regional pain syndrome I of right lower limb G90.521 [facility] [address] [place] [address] 04/26/2025 Red Tamayo Other penitentiary (current) drug therapy Z79.899 ; lumbar spondylosis M47.816 ; cervical spondylosis M47.812 ; Postlaminectomy syndrome, not elsewhere classified M96.1 and Complex regional pain syndrome I of right lower limb G90.521 [facility] [address] [place] [address] 06/08/2025 Red Tamayo 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 Z79.899 ; lumbar spondylosis M47.816 ; cervical spondylosis M47.812 ; Postlaminectomy syndrome, not elsewhere classified M96.1 and Complex regional pain syndrome I of right lower limb G90.521 [facility] [address] [place] [address] 07/04/2025 Red Tamayo 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 Z79.899 ; lumbar spondylosis M47.816 ; cervical spondylosis M47.812 ; Postlaminectomy syndrome, not elsewhere classified M96.1 and Complex regional pain syndrome I of right lower limb G90.521 [facility] [address] [place] [address] 07/04/2025 Red Tamayo Other penitentiary (current) drug therapy Z79.899 [facility] [address] [place] [address] 07/24/2024 Red Tamayo Other penitentiary (current) drug therapy Z79.899 [facility] [address] [place] [address] 08/02/2024 Red Tamayo [facility] [address] [place] [address] 09/26/2024 Red Tamayo Other penitentiary (current) drug therapy Z79.899 [facility] [address] [place] [address] 11/20/2024 Red Tamayo 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 Z79.899 [facility] [address] [place] [address] 12/01/2024 Red Tamayo [facility] [address] [place] [address] 01/30/2025 Red Tamayo Other penitentiary (current) drug therapy Z79.899 [facility] [address] [place] [address] 02/04/2025 Red Tamayo [facility] [address] [place] [address] 03/27/2025 Red Tamayo 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 Z79.899 [facility] [address] [place] [address] 03/28/2025 Red Tamayo [facility] [address] [place] [address] 04/26/2025 Red Tamayo 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 Z79.899 [facility] [address] [place] [address] 06/08/2025 Red Tamayo 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 Z79.899 [facility] [address] [place] [address] 06/15/2025 Red Tamayo Other penitentiary (current) drug therapy Z79.899 [facility] [address] [place] [address] 06/18/2025 Red Tamayo Assessments Encounter Date Diagnosis (ICD Code) Assessment Notes Treatment Notes Treatment Clinical Notes Section Notes 07/24/2024 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 (ICD-10 - Z79.899) July [...] risk assessment is low. f/u 2 months 91MLE26 - Patient with chronic LBP with radicular [...] validate a good response prior to implant. 40GSL47 - Patient presents today to discuss further [...] risk assessment is low. f/u 2 months 96RWM36 - Patient with chronic LBP with radicular [...] validate a good response prior to implant. 59III04 - Patient presents today to discuss further [...] her back and radicular pain. 07/24/2024 Other penitentiary (current) drug therapy (ICD-10 - Z79.899) 09/26/2024 Other penitentiary (current) drug therapy (ICD-10 - Z79.899) 09/26/2024 [...] refilled and f/u 2 months. 11/20/2024 Other penitentiary (current) drug therapy (ICD-10 - Z79.899) 11/20/2024 [...] refilled and f/u 2 months. 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 01/30/2025 Other penitentiary (current) drug therapy (ICD-10 - Z79.899) 03/27/2025 Other penitentiary (current) drug therapy (ICD-10 - Z79.899) 03/27/2025 [...] Opioid risk assessment is low. 03/27/2025 Other penitentiary (current) drug therapy (ICD-10 - Z79.899) 04/26/2025 Other penitentiary (current) drug therapy (ICD-10 - Z79.899) 04/26/2025 [...] Opioid risk assessment is low. 04/26/2025 Other penitentiary (current) drug therapy (ICD-10 - Z79.899) 06/08/2025 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 (ICD-10 - Z79.899) June [...] were reviewed. Opioid risk assessment is low. 19NNE89 - Patient with increased spasms to her [...] for her chronic back pain. 06/08/2025 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 (ICD-10 - Z79.899) 06/15/2025 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 (ICD-10 - Z79.899) 07/04/2025 Other penitentiary (current) drug therapy (ICD-10 - Z79.899) 07/04/2025 1. Refill percocet 7.5/325mg TID 2. Refill tizanidine 4mg TID - stop 3. Refill Lidocaine patch daily as directed 4. Order TENS unit 5. Follow up in 2 months 6. Start Robaxn 500mg TID 07/04/2025 Ms. Damon is a 64 year-old with [...] is low. Follow up 2 months. 07/04/2025 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 (ICD-10 - Z79.899) 07/04/2025 lumbar spondylosis (ICD-10 - M47.816) 07/04/2025 Ms. Damon is a 64 year-old with [...] assessment is low. Follow up 2 months. 06/08/2025 lumbar spondylosis (ICD-10 - M47.816) 03/27/2025 [...] were reviewed. Opioid risk assessment is low. 28WOI37 - Patient with increased spasms to her [...] risk assessment is low. f/u 2 months 29ZFW87 - Patient with chronic LBP with radicular [...] validate a good response prior to implant. 56RSY46 - Patient presents today to discuss further [...] risk assessment is low. f/u 2 months 81ZVK62 - Patient with chronic LBP with radicular [...] validate a good response prior to implant. 33TIX21 - Patient presents today to discuss further [...] were reviewed. Opioid risk assessment is low. 02IFZ54 - Patient with increased spasms to her [...] pain. 07/04/2025 cervical spondylosis (ICD-10 - M47.812) 07/04/2025 Ms. Damon is a 64 year-old with [...] assessment is low. Follow up 2 months. 06/08/2025 Postlaminectomy syndrome, not elsewhere classified (ICD-10 [...] were reviewed. Opioid risk assessment is low. 73PNV78 - Patient with increased spasms to her [...] elsewhere classified (ICD-10 - M96.1) 07/04/2025 Ms. Damon is a 64 year-old with [...] assessment is low. Follow up 2 months. 04/26/2025 Postlaminectomy syndrome, not elsewhere classified (ICD-10 [...] risk assessment is low. f/u 2 months 31QTI08 - Patient with chronic LBP with radicular [...] validate a good response prior to implant. 35RKF69 - Patient presents today to discuss further [...] assessment for her back and radicular pain. 01/30/2025 Complex regional pain syndrome I of [...] lower limb (ICD-10 - G90.521) 07/04/2025 Ms. Damon is a 64 year-old with [...] assessment is low. Follow up 2 months. 06/08/2025 Complex regional pain syndrome I of [...] were reviewed. Opioid risk assessment is low. 16FUY81 - Patient with increased spasms to her [...] risk assessment is low. f/u 2 months 87MBH42 - Patient with chronic LBP with radicular [...] validate a good response prior to implant. 08EVD98 - Patient presents today to discuss further [...] risk assessment is low. f/u 2 months 31GNB40 - Patient with chronic LBP with radicular [...] validate a good response prior to implant. 69GQI77 - Patient presents today to discuss further [...] risk assessment is low. f/u 2 months 13QQL45 - Patient with chronic LBP with radicular [...] validate a good response prior to implant. 52XPL42 - Patient presents today to discuss further [...] Definitive 07/04/2025 Next Appt Details Provider Name:Red cooney, 08/31/2025 02:45:00 PM, [address], [place], [address], Insurance Providers Payer Name Payer Address Payer Phone Subscriber Number Group Number Insured Name Patient Relationship to Insured Coverage Start Date Coverage End Date [employer] Medicare [address] [place] [phone] [id number] Diamond Damon Self - patient is the insured 5 [place] Medicaid [address] [place] [address] [id number] Diamond Damon Self - patient is the [...] Surgery Date(Month/Year) Left ankle surgery x2/ [facility] / with a 3 day stay 1999 Appendectomy/ [facility] / overnigh t stay 2003 Cholecystectomy/ [facility] / overn ight stay 2002 LT Hand Surgery x2/ [facility] / wi th a 3 day stay 1976 Neck (cervical discetomy)Dr. Marc[facility] / over night stay 2005 RT Shoulder / [facility] / (OP) 198 2 Tonsillectomy/ [facility] / (OP) 19 66 Tubal abdominal ligation / in [place] / (O P) 1981 Bladder lift / [facility] / Dr. Daniel Crawford / (OP) 2005 [place] Cyst Rupture/ Kenyatta A Elvis in [facility] / with a 3-4 day stay 1987 oophorectomy (left)/ [facility] / ( OP) 2005 [place] teeth/ Dr. Hess / (OP) 1976 Hernia repair / [facility] / (OP) 03/14/2021 Hospitalization History Reason Date(Month/Year) Coughing/ [facility]/1 day stay 01/2025 Bowel obstruction / [facility] / treated and rel eased 02/2021
--- OUTSIDE RECORDS SUMMARY | 2025-07-11 14:08 | XMS_ITS | Encounter Summary ---
Author Organization [employer] ([place], [place], [place], [place], [place]) Address [address] [place] [address] Care Team Providers Care Wheel Polisher Name Role Phone Jaelyn Renteria APRN Primary Care Provider Vanessa Green MD Unavailable Encounter Details Date Type Department Care Team (Late st Contact Info) Description 01/05/2019 Transcribed Document [facility] [place] Family [place] [facility] [place] [address] ProviderLexi MD [address] [place] [address] Social History Tobacco Use Types Packs/Day [...] Garlic and onions. ? Spicy foods. ? [place] fruits, including oranges, rhianna, or limes. ? [...] 02/01/2009 Document Revised: 11/07/2012 Document Reviewed: 05/09/2016 [employer] Interactive Patient Education ? 2017 [employer] Esophagogastroduodenoscopy, Care After Introduction Refer to [...] Revised: 01/21/2017 Document Reviewed: 07/09/2016 ? 2017 [facility] Hemorrhoids Introduction Hemorrhoids are swollen veins in [...] 2?3 times a day. General instructions??? Take dvyf-hre-vrzwuqk and prescription medicines only as told by [...] to digest. ? Rest often. ??? Take nyux-tbz-tqlluea or prescription medicines only as told by [...] 09/18/2011 Document Revised: 05/10/2017 Document Reviewed: 05/10/2017 [employer] Interactive Patient Education ? 2016 [employer] documented in this encounter Plan of Treatment Not on file documented as of this encounter Visit Diagnoses Not on filedocumented in this encounter Care Teams Wheel Polisher Relationship Specialty Start Date End Date Jaelyn Renteria, CUSTOMER RESPONSE REPRESENTATIVE [address] [place] [address] PCP - General Family Medicine 10/06/22 Vanessa Green MD [address] [place] [phone] Pipe And Boiler Covers Supervisor Rheumatology 10/06/22 documented as of this encounter
--- OUTSIDE RECORDS SUMMARY | 2025-07-11 14:08 | XMS_ITS | Encounter Summary ---
Author Organization [employer] ([place], [place], [place], [place], [place]) Address [address] [place] [address] Care Team Providers Care Manager Molecular Name Role Phone Jaelyn Renteria APRN Primary Care Provider Vanessa Green MD Unavailable Encounter Details Date Type Department Care Team (Late st Contact Info) Description 01/05/2019 Transcribed Document [facility] [place] Family Medicine [facility] [place] [address] ProviderLexi MD [address] [place] [address] Social History Tobacco Use Types Packs/Day [...] Source : Stated Height Entry Format : [place] Height, Feet : 5 ft(Converted to: 152 cm, 60 Inch) Height, Inches : 6 Inch(Converted to: 0 ft 6 Inch, 15.24 cm) Clinical Height : 167.64 cm Weight Source : Standing scale Weight Entry Format : [place] Clinical [facility] Weight : 66.36 kg Weight, Pounds : 146 lb Body Surface Area (BSA) : 1.75 m2 Body Mass Index : 23.6 kg/m2 [place] Body Weight : 59 kg Albina Dove [...] (Last Updated: 05/18/2014 22:06:58 EDT by BUD SHERMAN RN) Alcohol: Use in Last 12 Months: No. (Last Updated: 05/18/2014 22:07:02 EDT by BUD SHERMAN, JOB) Substance Abuse: Drug Use Hx: No. Use in Last 12 Months: No. (Last Updated: 05/18/2014 22:07:11 EDT by BUD SHERMAN RN) Nutrition/Health: Caffeine intake amount: 1-2 per day. (Last Updated: 08/06/2016 08:03:47 EST by Albina Dove, JOB) Infectious Disease History Infectious Disease History : [...] 12:58 EDT General Info Preferred Name : diamond/jorge Arrived From : Home Mode of Arrival on Unit : Ambulatory Legal Guardian : Friend Support Person/Patient Apparel Cutter : Yes Support Person/Pt Rep Name : maria teresa Support Person/Pt Rep Contact Information : [phone] Want Family/Rep/Phys Notified of Admit : No Emergency Contact #1 : na Emergency Contact #1 Phone Number : bryon Emergency Contact #1 Relationship : rhonda Emergency Contact #2 : a Emergency Contact #2 Phone Number : jeffrey Emergency Contact #2 Relationship : na Information Obtained From : Patient Primary Language : Vincentian Preferred Communication Mode : Verbal Communication Barrier [...] Scale Risk Level : 25-45 Medium Risk [place] Fall Interventions : Adequate lighting, Assistive devices [...] filedocumented in this encounter Care Teams Manager Molecular Relationship Specialty Start Date End Date Jaelyn Renteria, RUBBER COVERING MACHINE OPERATOR [address] [place] [address] PCP - General Family Medicine 10/06/22 Vanessa Green MD [address] [place] [phone] Chief Clerk Rheumatology 10/06/22 documented as of this encounter
--- OUTSIDE RECORDS SUMMARY | 2025-07-11 14:08 | XMS_ITS | Encounter Summary ---
Author Organization [employer] ([place], [place], [place], [place], [place]) Address [address] [place] [address] Care Team Providers Care Tailman Name Role Phone Jaelyn Renteria APRN Primary Care Provider Vanessa Green MD Unavailable Encounter Details Date Type Department Care Team (Late st Contact Info) Description 11/09/2018 Transcribed Document [facility] [place] [facility] [address] ProviderLexi MD [address] [place] [phone] Social History Tobacco Use Types Packs/Day [...] on filedocumented in this encounter Care Teams Tailman Relationship Specialty Start Date End Date Jaelyn Renteria, NURSING PROFESSOR [address] [place] [address] PCP - General Family Medicine 10/06/22 Vanessa Green MD [address] [place] [phone] Tower Equipment Installer Rheumatology 10/06/22 documented as of this encounter
--- OUTSIDE RECORDS SUMMARY | 2025-07-11 14:08 | XMS_ITS | Encounter Summary ---
Author Organization [employer] ([place], [place], [place], [place], [place]) Address [address] [place] [address] Care Team Providers Care Environmental Engineering Intern Name Role Phone Jaelyn Renteria APRN Primary Care Provider [phone] Vanessa Green MD Unavailable Encounter Details Date Type Department Care Team (Late st Contact Info) Description 06/10/2019 Transcribed Document [facility] [place] Family Medicine [facility] [place] [address] ProviderLexi MD [address] [place] [address] Social History Tobacco Use Types Packs/Day [...] constant. Heat therapy is beneficial. She takes [id number] Tylenol and ibuprofen. She has had his [...] weeks. Meghan Abdullahi MD Electronically signed by [facility], [facility] Conversion Database Tester Cerner at 12/14/2022 11:47 AM CDT documented in this encounter Plan of Treatment Not on file documented as of this encounter Visit Diagnoses Not on filedocumented in this encounter Care Teams Environmental Engineering Intern Relationship Specialty Start Date End Date Jaelyn Renteria, INFRASTRUCTURE DESIGN ENGINEER [address] [place] [address] PCP - General Family Medicine 10/06/22 Vanessa Green MD [address] [place] [phone] It Business Systems Analyst Rheumatology 10/06/22 documented as of this encounter
--- OUTSIDE RECORDS SUMMARY | 2025-07-11 14:08 | XMS_ITS | Encounter Summary ---
Author Organization [employer] ([place], [place], [place], [place], [place]) Address [address] [place] [address] Care Team Providers Care Shaft Repairer Name Role Phone Jaelyn Renteria APRN Primary Care Provider [phone] Vanessa Green MD Unavailable Encounter Details Date Type Department Care Team (Late st Contact Info) Description 07/04/2019 Transcribed Document [facility] [place] Family Medicine [facility] [place] [address] ProviderLexi MD [address] [place] [address] Social History Tobacco Use Types Packs/Day [...] Lexi Vickers MD - 07/04/2019 2:30 PM IT CORPORATE RECRUITER Patient: LILI DAMON Age: 58 Years Sex: [...] on filedocumented in this encounter Care Teams Shaft Repairer Relationship Specialty Start Date End Date Jaelyn Renteria, DENTAL CLAIMS PROCESSOR [address] [place] [address] PCP - General Family Medicine 10/06/22 Vanessa Green MD [address] [place] [phone] Beading Installer Rheumatology 10/06/22 documented as of this encounter
--- OUTSIDE RECORDS SUMMARY | 2025-07-11 14:08 | XMS_ITS | Encounter Summary ---
Author Organization [employer] ([place], [place], [place], [place], [place]) Address [address] [place] [address] Care Team Providers Care Hospital Scientist Name Role Phone Jaelyn Renteria APRN Primary Care Provider Vanessa Green MD Unavailable Encounter Details Date Type Department Care Team (Late st Contact Info) Description 04/27/2019 Transcribed Document [facility] [place] [facility] [place] [address] ProviderLexi MD [address] [place] [address] Social History Tobacco Use Types Packs/Day [...] patient tolerated the procedure well without complications. Electronically signed by Jarocho Traore Conversion Supervisor Ornamental Ironworking Cerner at 12/14/2022 12:01 PM CDT documented in this encounter Plan of Treatment Not on file documented as of this encounter Visit Diagnoses Not on filedocumented in this encounter Care Teams Hospital Scientist Relationship Specialty Start Date End Date Jaelyn Renteria, ANCIENT ART CURATOR [address] [place] [address] PCP - General Family Medicine 10/06/22 Vanessa Green MD [address] [place] [phone] Accredited Farm Manager Rheumatology 10/06/22 documented as of this encounter
--- OUTSIDE RECORDS SUMMARY | 2025-07-11 14:08 | XMS_ITS | Clinical Summary ---
Author Organization [facility] Address [address] [place] [address] Care Team Providers Care Funeral Arrangement Director Name Role Phone Pcp, No Primary Care [...] Wellness (AWV) 1960 [facility]-Infant/Child/Adol SDOH Screenings 1960 [id number] Vaccine (#1) 12/03/1964 [facility]- SDOH Screenings 12/03/1977 [...] Narrative SUNQUEST - 04/23/1997 12:00 AM EDT [facility] MR #: [id number] [facility] LILI DAMON [place], [place] [address] 1960 (Age: 36) FW Collect Date: 04/17/1997 00:00 Receipt Date: 04/18/1997 00:00 Page 1 DEPARTMENT OF PATHOLOGY AND LABORATORY MEDICINE CYTOPATHOLOGY REPORT Email: [email or web address] [phone] * Converted Case * This report may not match the original report format ATTENDING MD/Practitioner: Mary Galan MD Service: QUALITY LEAD Location: Reported: 04/23/1997 00:00 Collected: 04/17/1997 00:00 [...] results is suggested (please call Microbiology at [phone] for results). CLINICAL INFORMATION: Menstrual History: {Not Provided} Date of Last Menstrual Period: {Not Provided} SPECIMEN DESCRIPTION: A: THIN PREP(CERVICAL/ENDOCERVICAL)., THIN PREP PAP ICD: F: {Not Entered} SNOMED CODES: 1; [id number] [id number] In cases where a pathologist has signed out the report, the service has been rendered in part by a resident. The signing pathologist has performed and is responsible for the reported pathologic evaluation. us Yumiko Galan MD LAB PATHOLOGY ORDERABLES Mi cornejo Result SUNQUEST from Last 3 Months or Most Recently Relevant to Health Maintenance Insurance MEDICAID[place] AET[place] MEDICARE Care Teams Funeral Arrangement Director Relationship Specialty Start Date End Date Pcp, Alicia [address] [place] [address] PCP - General Family Medicine 02/01/25
--- NOTE | 2025-07-11 14:11 | CT_ITS ---
FINAL REPORT TECHNIQUE: Noncontrast exam This study was performed with techniques to keep radiation doses as low as reasonably achievable, (ALARA). Individualized dose reduction techniques using automated exposure control or adjustment of mA and/or kV according to the patient''s size were employed. CLINICAL HISTORY: dizziness after fall COMPARISON: 1 day prior FINDINGS: Moderate atrophy and chronic ischemic white matter changes are noted. Chronic lacunar infarct noted external capsule. No cortical edema is present. There is no mass or hemorrhage. Ventricles are normal. Bone windows show no skull fracture or obvious obstructive lesion. IMPRESSION: 1. No acute intracranial abnormality or obvious mass. 2. Atrophy and chronic ischemic white matter changes as above. Reviewed, Interpreted and Dictated by Rhiannon Grover MD Transcribed by Lesli Canchola Authenticated and [facility]
--- NOTE | 2025-07-11 14:11 | CT_ITS ---
FINAL REPORT CLINICAL HISTORY: dizziness after fall COMPARISON: None FINDINGS: CTA HEAD TECHNIQUE: Thin section axial CT with contrast with 3D MIP reconstruction This study was performed with techniques to keep radiation doses as low as reasonably achievable, (ALARA). Individualized dose reduction techniques using automated exposure control or adjustment of mA and/or kV according to the patient''s size were employed. FINDINGS: No aneurysm is seen. Major intracranial vessels are patent without significant stenosis. . IMPRESSION: Unremarkable This study was performed using automated techniques to achieve radiation exposure as low as reasonably achievable Reviewed, Interpreted and Dictated by Rhiannon Grover MD Transcribed by Lesli Canchola Authenticated and . [facility]
--- NOTE | 2025-07-11 14:11 | CT_ITS ---
FINAL REPORT CLINICAL HISTORY: dizziness after fall COMPARISON: None FINDINGS: CT NECK ANGIO, WITHOUT AND WITH CONTRAST TECHNIQUE: Thin section axial CT with contrast with multiplanar 3D MIP reconstruction. This study was performed with techniques to keep radiation doses as low as reasonably achievable, (ALARA). Individualized dose reduction techniques using automated exposure control or adjustment of mA and/or kV according to the patient''s size were employed. NASCET criteria and technique was utilized during interpretation. FINDINGS: Aortic arch: Arch shows no significant narrowing. Great vessel origins are widely patent. Right carotid: Mild calcified plaque disease with no significant stenosis. Left carotid: Mild calcified plaque disease with no significant stenosis. Vertebrals: Vertebral arteries are codominant. No significant stenosis is present. IMPRESSION: No significant stenosis of the cervical carotid arteries This study was performed using automated techniques to achieve radiation exposure as low as reasonably Reviewed, Interpreted and Dictated by Rhiannon Grover MD Transcribed by Lesli Canchola Authenticated and . [facility]
--- NOTE | 2025-07-11 14:17 | HMH.EDGENADL ---
Discharge Plan Disposition Patient Disposition: Home, Self-Care Condition: Fair Prescriptions Prescriptions: No Action guaifenesin 600 mg tablet extended release 12hr 600 mg PO DAILY Qty: 90 2RF naloxone [Narcan] 4 mg/actuation spray,non-aerosol 4 mg intranasal Q3M PRN (Reason: opioid overdose) Qty: 2 2RF Rx Instructions: spray 1 dose into ONE nostril; alternate nostrils w each dose until help arrives lidocaine 4 % adhesive patch,medicated topical albuterol sulfate [Ventolin HFA] 90 mcg/actuation HFA aerosol inhaler 2 puff inhalation Q6H PRN (Reason: shortness of breath or wheezing) Qty: 8.5 2RF sennosides [senna] 8.6 mg tablet 8.6 mg PO .COMPLEX PRN (Reason: constipation) Qty: 30 2RF Rx Instructions: 8.6 mg orally PRN; levothyroxine 50 mcg tablet See Rx Instructions .ROUTE .COMPLEX Qty: 90 0RF Dose Instruction: TAKE 1 TABLET BY MOUTH ONCE DAILY Rx Instructions: TAKE 1 TABLET BY MOUTH ONCE DAILY bupropion HCl 300 mg tablet extended release 24 hr See Rx Instructions .ROUTE .COMPLEX Qty: 90 1RF Dose Instruction: TAKE ONE (1) TABLET BY MOUTH ONCE DAILY Rx Instructions: TAKE ONE (1) TABLET BY MOUTH ONCE DAILY polyethylene glycol 3350 [Miralax] 17 gram/dose powder 17 g PO DAILY Qty: 510 0RF oxycodone-acetaminophen 7.5-325 mg tablet 1 tab PO TID ondansetron 4 mg tablet,disintegrating 4 mg PO Q8H PRN (Reason: nausea and vomiting) 5 Days Qty: 10 0RF valacyclovir [Valtrex] 1 gram tablet 1,000 mg PO DAILY PRN (Reason: herpes) venlafaxine 150 mg capsule,extended release 24hr 150 mg PO DAILY Rx Instructions: TAKE ONE CAPSULE BY MOUTH ONCE A DAY fenofibrate nanocrystallized 145 mg tablet 145 mg PO DAILY Rx Instructions: TAKE ONE TABLET BY MOUTH ONCE A DAY methocarbamol 500 mg tablet 1,000 mg PO Q8H PRN (Reason: muscle pain and spasm) Qty: 30 0RF Referrals Follow up/Referrals: Regan Navarrete APRN [Primary Care Provider, Family Practice] - See instructions Activity Restrictions/Add. Instructions Additional Instructions/Restrictions: All your scans were negative today. Please talk to your primary care provider about medication for the spasms as we discussed. If any other problems or concerns please see your PCP or return to the ED. Clinical Impressions Clinical Impression: Dizziness, Spasm Instructions Patient Instructions: DI for Vertigo, DI for Muscle Spasm Print Language Print Language: Mongolian Discharge ED Provider: Ramon Avelar Adult HPI General Chief complaint: Dizziness Stated complaint: AO-07/10/25- Fall; H/A, bruises on chest, dizzines Time Seen by Provider: 07/11/25 13:59 Mode of Arrival: Family Vehicle Source of Information: Patient and Medical Record Description of Symptoms (Recalled from ER Triage Doc. by RN): Pt c/o headache with dizziness after a fall on Wednesday (07/09). Denies any LOC. She was seen in ED after the fall but reported that she didn't hit her but today realized she did d/t the tenderness at left shinto/occipital areas. She reports she has a hx of stroke and has known left sided weakness deficits. She reports intermittent double vision. FS 114. She feels her speech is a little slow but feels fatigued like I could sleep for 2 days . History of Present Illness HPI narrative: This is a 64-year-old female who presents to the ED today for complaint of headache with dizziness after a fall on 07/10/2010. She denies loss of consciousness but she does have dizziness. She was seen in the emergency department after the fall but reported she did not hit her head that day. She states that she has some tenderness on the left shinto now. She has a history of stroke and already has deficits on the left side. Patient had a good blood sugar at 114. She does feel fatigued but I did not notice that her speech was slow at all as the triage note states. She says she is tired. Patient did get a CT scan when she was in the ED that day. Related Data Home Medications ?Medication ?Instructions ?Recorded ?Confirmed oxycodone-acetaminophen 7.5 mg-325 1 tab PO TID 06/09/24 07/03/25 mg tablet fenofibrate nanocrystallized 145 145 mg PO DAILY 01/29/25 07/03/25 mg tablet valacyclovir 1 gram tablet 1,000 mg PO DAILY PRN herpes 01/29/25 07/03/25 (Valtrex) venlafaxine 150 mg 150 mg PO DAILY 01/29/25 07/03/25 capsule,extended release 24 hr lidocaine 4 % topical patch patch topical 05/02/25 07/03/25 Previous Rx's ?Medication ?Instructions ?Recorded polyethylene glycol 3350 17 17 g PO DAILY #510 grams 06/12/24 gram/dose oral powder (Miralax) guaifenesin 600 mg tablet, 600 mg PO DAILY #90 tabs 10/31/24 extended release 12 hr ondansetron 4 mg disintegrating 4 mg PO Q8H PRN nausea and 01/20/25 tablet vomiting 5 days #10 tabs naloxone 4 mg/actuation nasal 4 mg intranasal Q3M PRN opioid 02/06/25 spray (Narcan) overdose #2 ea sennosides 8.6 mg tablet (senna) 8.6 mg PO .COMPLEX PRN 04/18/25 constipation #30 ea albuterol sulfate 90 mcg/actuation 2 puff inhalation Q6H PRN 05/02/25 aerosol inhaler (Ventolin HFA) shortness of breath or wheezing #8.5 grams levothyroxine 50 mcg tablet See Rx Instructions .Route 05/15/25 .COMPLEX #90 tabs bupropion HCl 300 mg 24 hr tablet, See Rx Instructions .Route 07/09/25 extended release .COMPLEX #90 tabs methocarbamol 500 mg tablet 1,000 mg (2 x 500 mg) PO Q8H PRN 07/10/25 muscle pain and spasm #30 tabs Allergies Allergy/AdvReac Type Severity Reaction Status Date / Time loratadine Allergy Mild Agression Verified 07/03/25 14:53 calamine Allergy Rash Verified 07/03/25 14:53 meloxicam (From Mobic) Allergy RESTLESS Verified 07/03/25 14:53 LEGS, NAUSEA Corticosteroids AdvReac Intermediate AGGRESION Verified 07/03/25 14:53 (Glucocorticoids) (steroids) Antihistamines - Alkylamine AdvReac Mild MANIC Verified 07/03/25 14:53 aripiprazole (From Abilify) AdvReac Mild AGRESSION Verified 07/03/25 14:53 bacitracin (From Neosporin AdvReac Mild MORE RED, Verified 07/03/25 14:53 ([id number])) IRRITATED brexpiprazole (From Rexulti) AdvReac Mild AGRESSIVE Verified 07/03/25 14:53 buspirone (From BuSpar) AdvReac Mild AGRESSIVE Verified 07/03/25 14:53 cariprazine (From Vraylar) AdvReac Mild HIGH ENERGY Verified 07/03/25 14:53 celecoxib (From Celebrex) AdvReac Mild Headache Verified 07/03/25 14:53 chlordiazepoxide (From AdvReac Mild SHAKES Verified 07/03/25 14:53 Librium) chlorpromazine (From AdvReac Mild MANIC Verified 07/03/25 14:53 Thorazine) clomipramine (From Anafranil) AdvReac Mild RLS Verified 07/03/25 14:53 clonazepam (From Klonopin) AdvReac Mild HIGH ENERGY Verified 07/03/25 14:53 codeine AdvReac Mild Anaphylaxis Verified 07/03/25 14:53 cyclobenzaprine (From AdvReac Mild RLS Verified 07/03/25 14:53 Flexeril) desipramine (From Norpramin) AdvReac Mild RLS Verified 07/03/25 14:53 desvenlafaxine (From Pristiq) AdvReac Mild AGRESIVE Verified 07/03/25 14:53 dexmedetomidine AdvReac Mild RLS Verified 07/03/25 14:53 divalproex sodium (From AdvReac Mild HEADACHE, Verified 07/03/25 14:53 Depakote) SWELLING duloxetine (From Cymbalta) AdvReac Mild AGRESSIVE Verified 07/03/25 14:53 eszopiclone (From Lunesta) AdvReac Mild NOT Verified 07/03/25 14:53 AFFECTIVE fluoxetine (From Prozac) AdvReac Mild MANIC Verified 07/03/25 14:53 hydrocodone (From Vicodin) AdvReac Mild ITCHING Verified 07/03/25 14:53 ibuprofen AdvReac Mild RLS Verified 07/03/25 14:53 lorazepam (From Ativan) AdvReac Mild RLS Verified 07/03/25 14:53 lurasidone (From Latuda) AdvReac Mild HYPER Verified 07/03/25 14:53 meperidine (From Demerol) AdvReac Mild RLS Verified 07/03/25 14:53 mirtazapine (From Remeron) AdvReac Mild RLS Verified 07/03/25 14:53 morphine AdvReac Mild Anaphylaxis Verified 07/03/25 14:53 neomycin (From Neosporin AdvReac Mild REDNESS Verified 07/03/25 14:53 ([id number])) paroxetine (From Paxil) AdvReac Mild RLS Verified 07/03/25 14:53 perphenazine (From Trilafon) AdvReac Mild RLS Verified 07/03/25 14:53 polymyxin B (From Neosporin AdvReac Mild REDNESS Verified 07/03/25 14:53 ([id number])) propranolol (From Inderal [place]) AdvReac Mild RLS Verified 07/03/25 14:53 quetiapine (From Seroquel) AdvReac Mild MANIC Verified 07/03/25 14:53 risperidone (From Risperdal) AdvReac Mild AGRESSIVE Verified 07/03/25 14:53 temazepam (From Restoril) AdvReac Mild HYPER Verified 07/03/25 14:53 topiramate (From Topamax) AdvReac Mild RLS Verified 07/03/25 14:53 tramadol (From Ultram) AdvReac Mild HYPER Verified 07/03/25 14:53 vortioxetine (From AdvReac Mild HYPER Verified 07/03/25 14:53 Trintellix) ziprasidone (From Geodon) AdvReac Mild HYPER Verified 07/03/25 14:53 zolpidem (From Ambien) AdvReac Mild HYPER Verified 07/03/25 14:53 acetaminophen (From Vicodin) AdvReac Hallucinati Verified 07/03/25 14:53 [facility] Disclaimer: The information contained in this section may have been updated after the patient was seen, as this information can be updated by other users. Medical History Homicidal ideation Suicidal ideation History of anoxic brain injury Apparently associated with amitriptyline overdose in 1993, details unknown Stroke Postmenopausal bleeding Constipation Constipation Low back pain Herpes genitalis in women Falls Hx of falls related to CVA weakness, drop foot Imbalance Reports intermittent imbalance throughout her life span, multiple falls, some with injuries History of cocaine use Younger days Peroneal tendinitis, left leg Left-sided weakness History of stroke Apparently associated with amitriptyline overdose in 1993, details unknown Primary osteoarthritis of right knee Acute pain of right knee Left foot pain Patient new to facility Asthma Dyspnea on exertion History of multiple strokes Frequent falls Hyperlipemia Sjogrens syndrome Muscle spasm Dystonia Surgical History History of foot surgery History of left oophorectomy History of endometrial ablation H/O cervical spine surgery H/O hernia repair History of tonsillectomy Hx of appendectomy History of cholecystectomy History of arthroplasty of left ankle Family History Other Cancer Coronary artery disease Diabetes FHx: mental illness Hypertension Substance abuse Thyroid disorder Social History Smoking Status: Never smoker alcohol intake: former substance use type: denies use, former substance user, marijuana, crack/cocaine, opiates and prescription drug current occupational status: disabled Travel in the last 8 weeks?: None household members: significant other housing: house marital status: Have you lived/traveled outside [place] in past 30 days?: No Contact w/someone who lives/traveled outside US past 30 days?: No Exposure to someone with infectious disease in past 14 days?: No Do you have a fever (greater than 100.4 F or 38 C)?: No Have you tested positive for COVID-19?: No Exposed to someone with COVID-19 in past 14 days?: No Do you have a sore throat?: No Do you have a cough?: No Do you have any weakness?: No Do you have any diarrhea?: No Are you experiencing any unusual bleeding?: No Do you have any muscle aches/pain?: No Do you have any abdominal pain?: No Are you experiencing loss of taste or smell?: No Other Medical History Have you received the Flu Vaccine for this season: No Have you received the Pneumonia Vaccine: Yes ROS Obtained: Yes Systems reviewed as appropriate & no additional complaints except as documented Constitutional Constitutional: Reports as per HPI Physical Exam General General appearance: alert Head Head exam: normocephalic Eye Eye exam: Present PERRL and EOMI ENT ENT exam: Present normal exam, normal oropharynx and mucous membranes moist Neck Neck exam: Present full ROM and trachea midline Chest Chest inspection: Present tenderness (Bruising to left breast) Respiratory Respiratory exam: Present normal lung sounds bilaterally Cardiovascular Cardiovascular exam: Present regular rate, normal rhythm, normal heart sounds, +S1 and +S2 Abdominal Exam Abdominal exam: Present soft and normal bowel sounds Extremities Exam Extremities exam: Present full ROM and normal capillary refill Neurological Exam Neurological exam: Present alert and oriented X3 Skin Skin exam: Present warm, dry and other Medical Decision Making Medical Records Screening: Per USPSTF and CDC recommendations, given the prevalence of disease in our region, it is our hospital?s policy to screen for HIV and viral Hepatitis for all patients aged 18 and over and those with ongoing risk factors. [place] Inquiry Pt receiving controlled substance: No [place] was queried for this patient: No Vital Signs: 07/11/25 13:25 07/11/25 14:45 07/11/25 15:27 Temperature 98.0 F Temperature Source Oral Pulse Rate 84 79 Pulse Rate [Right] 80 Respiratory Rate 16 Blood Pressure 139/90 199/94 H Blood Pressure [Right Arm] 120/72 Blood Pressure Mean [Right Arm] 88 Blood Pressure Source [Right Arm] Automatic Cuff 02 Sat by Pulse Oximetry 97 100 98 Oxygen Delivery Method Room Air Room Air 07/11/25 15:31 07/11/25 16:15 07/11/25 16:26 Temperature 98.0 F Temperature Source Pulse Rate 86 87 86 Pulse Rate [Right] Respiratory Rate 16 Blood Pressure 204/95 H 152/91 H 152/91 H Blood Pressure [Right Arm] Blood Pressure Mean [Right Arm] Blood Pressure Source [Right Arm] 02 Sat by Pulse Oximetry 98 97 Oxygen Delivery Method Lab Data Lab Results 07/11/25 14:27: WBC 13.9 H, RBC 3.74 L, Hgb 11.7 L, Hct 35.0 L, MCV 93.6, MCH 31.3 H, MCHC 33.4, RDW 12.9, Plt Count 429 H, MPV 9.7, Neut % (Auto) 68.1, Lymph % (Auto) 20.0, [place] % (Auto) 10.2 H, Eos % (Auto) 0.7, Baso % (Auto) 0.6, Neut # (Auto) 9.4 H, Lymph # (Auto) 2.8, [place] # (Auto) 1.4 H, Eos # (Auto) 0.1, Baso # (Auto) 0.1, Sodium 132 L, Potassium 4.0, Chloride 98, Carbon Dioxide 29, Anion Gap 9.0, BUN 22 H, Creatinine 0.80, Estimated Creat Clear 56, Estimated GFR 72, Est GFR ( Amer) 87, Glucose 107 H, Calcium 10.0, Magnesium 1.8, Total Bilirubin 0.8, AST 36, ALT 28, Alkaline Phosphatase 60, Troponin I < 0.01, Total Protein 7.9, Albumin 4.7, Globulin 3.2, Albumin/Globulin Ratio 1.5, Lipase 36, Acetaminophen < 10 L 07/11/25 14:27 07/11/25 14:27 Orders (Tests/Meds): ED MEDICATIONS Discontinued Medications Generic Name Dose Route Start Last Admin Trade Name Freq PRN Reason Stop Dose Admin Iopamidol 80 ml 07/11/25 15:27 07/11/25 15:29 Iopamidol-370 (76%);100ml Bottle IV 07/11/25 15:28 80 ml ONCE ONE Administration Orphenadrine Citrate 60 mg 07/11/25 15:07 07/11/25 15:27 Orphenadrine Citrate 60mg/2ml Vial IV 07/11/25 15:08 60 mg ONCE ONE Administration Sodium Chloride 10 ml 07/11/25 15:27 07/11/25 15:29 0.9 % Sodium Chloride 50 Ml Vial IV 07/11/25 15:28 10 ml ONCE ONE Administration ORDERS Category Date Time Status CT angio head Stat Cat Scan 07/11/25 14:[address] angio neck Stat Cat Scan 07/11/25 14:[address] head/brain wo con Stat Cat Scan 07/11/25 14:11 Completed Acetaminophen Stat Lab 07/11/25 14:27 Completed CBC [Complete Blood Count Auto Diff] Stat Lab 07/11/25 14:27 Completed Comprehensive Metabolic Panel Stat Lab 07/11/25 14:27 Completed Lipase Stat Lab 07/11/25 14:27 Completed Magnesium Stat Lab 07/11/25 14:27 Completed Trop I [Troponin I] Stat Lab 07/11/25 14:27 Completed Medical Decision Narrative: patient is a 64-year-old female presenting to the emergency department for evaluation of dizziness after a fall. Patient is hemodynamically stable and nontoxic-appearing upon arrival, afebrile. Differential diagnosis includes dizziness, migraine, CVA, concussion, among others. Workup will be conducted with hematologic labs, specific imaging. Initial inventions include crystalloid bolus, analgesics. Initial workup reviewed by me [hematologic labs are remarkable for:]. [Imaging informally interpreted by me and remarkable for:] [Formal imaging read remarkable for:] Upon repeat evaluation [patient's pain is improved, appears better perfused, appears the same, appears worse, etc.]. Due to this [additional interventions, patient is appropriate for discharge, patient requires admission, etc.]. Critical Care Critical Care Time Critical Care Time: No
--- NOTE | 2025-07-11 14:21 | ECG_ITS ---
APPROVED REPORT Exam: Resting ECG HR:71 bpm ECG Measurements Heart Rate 71 AXES NC 155 P 27 QRSd 88 QRS 65 QT 368 T 55 QTc 391 Conclusion SINUS RHYTHM NORMAL ECG UNCONFIRMED REPORT Electronically signed by : Ramon Avelar, 07/11/2025 16:51:37
[2025-07-11 14:36] LABS: Hematocrit 35.0 % (37.0-47.0); Hemoglobin 11.7 g/dL (12.2-16.2); Immature Granulocytes % 0.4 %; Mean Corpuscular HGB Conc 33.4 g/dL (31.8-35.4); Mean Corpuscular Hemoglobin 31.3 pg (27.0-31.2); Mean Corpuscular Volume 93.6 fl (81-99); Nucleated Red Blood Cells % 0 %; Platelet Count 429 K/mm3 (142-424); Red Blood Count 3.74 M/mm3 (4.20-5.40); Red Cell Distribution Width-SD 44.5 fL; White Blood Count 13.9 K/mm3 (4.8-10.8)
[2025-07-11 14:44] LABS: Alanine Aminotransferase 28 U/L (12-78); Albumin Level 4.7 g/dl (3.5-5.0); Albumin/Globulin Ratio 1.5 (1.1-1.8); Alkaline Phosphatase 60 U/L (38-126); Anion Gap 9.0 mEq/L (5-15); Aspartate Amino Transferase 36 U/L (14-36); Bilirubin,Total 0.8 mg/dl (0.2-1.3); Blood Urea Nitrogen 22 mg/dl (7-17); Calcium 10.0 mg/dl (8.4-10.2); Carbon Dioxide 29 mmol/L (22.0-30.0); Chloride 98 mmol/L (98-107); Creatinine Clearance Estimated 56 mL/min (50-200); Creatinine,Serum 0.80 mg/dl (0.52-1.04); Estimated Glomerular Filt Rate 72 ml/min (>60); GFR (African American) 87 ML/MIN (>60); Globulin 3.2 g/dL (1.3-3.2); Glucose 107 mg/dl (74-100); Lipase 36 U/L (23-300); Magnesium 1.8 mg/dl (1.6-2.3); Potassium 4.0 mmoL/L (3.5-5.1); Sodium 132 mmol/L (136-145); Total Protein,Serum 7.9 g/dl (6.3-8.2)
[2025-07-11 14:45] VITALS: BP 139/90; PULSE 84; O2SAT 100
[2025-07-11 15:00] LABS: Acetaminophen < 10 ug/ml (10-30); Troponin I < 0.01 ng/ml (0.00-0.034)
[2025-07-11 15:27] VITALS: BP 199/94; PULSE 79; O2SAT 98
[2025-07-11] MEDS: ORPHENADRINE CITRATE 60MG/2ML VIAL 60 MG IV (15:27)
[2025-07-11] MEDS: IOPAMIDOL-370 (76%);100ML BOTTLE 80 ML IV (15:29)
[2025-07-11] MEDS: 0.9 % SODIUM CHLORIDE 50 ML VIAL 10 ML IV (15:29)
[2025-07-11 15:31] VITALS: BP 204/95; PULSE 86; O2SAT 98
[2025-07-11 16:15] VITALS: BP 152/91; PULSE 87; O2SAT 97
--- NOTE | 2025-07-11 16:25 | PC.NURSE ---
called [facility]- a - van for transportation
[2025-07-11 16:26] VITALS: BP 152/91; PULSE 86; RESP 16; TEMP 36.7; O2SAT 97
[2025-07-14 06:05] LABS: POC Glucose,Bedside 114 gm/dL (70-110)
== END 2025-07-11 16:27 | disposition home or self-care (01) ==
PROVIDERS: Nurse Practitioner; Emergency Provider Emergency Medicine; PCP Nurse Practitioner Family
DX: R42 Dizziness and giddiness (principal); R25.2 Cramp and spasm; E78.5 Hyperlipidemia, unspecified
CPT/HCPCS: 70450; 70496; 70498; 80053; 80329; 82962; 83690; 83735; 84484; 85025; 93005; 96374; 99285; J2360; Q9967

== ENCOUNTER 2025-07-30 14:24 | Emergency (ER) | payer MEDICARE, MEDICAID, SELFPAY ==
--- OUTSIDE RECORDS SUMMARY | 2018-01-11 18:54 | XMS_ITS | Encounter Summary ---
[facility] Address [address] [place] [address] Care Team Providers Care Abstracter Name Role Phone Kamlesh Abdullahi MD Primary Care Provider [phone] Reason for Referral * Hospital - Outpatient (Routine) - Closed Specialty Diagnoses / Procedures Referred By Patricia neri Referred To Contact Sleep Medicine Diagnoses Obstructive sleep apnea Snoring Excessive daytime sleepiness Sleep talking Procedures Polysomnography 4 or More Parameters Amanuel Elizalde MD [address] [place] [address] 3 [place] [address] Phone: tel: fax: [facility] [address] [place] [address] Phone: tel: Referral ID Status Reason Start Date Expiration Date Visits Re quested Visits Authorized [id number] Closed 12/07/2017 01/11/2018 1 1 Reason for Visit * Hospital - Outpatient (Routine) - Closed Specialty Diagnoses / Procedures Referred By Patricia neri Referred To Contact Sleep Medicine Diagnoses Obstructive sleep apnea Snoring Excessive daytime sleepiness Sleep talking Procedures Polysomnography 4 or More Parameters Amanuel Elizalde MD 793 [facility] [address] [address] Phone: tel: fax: [facility] [address] [place] [address] Phone: tel: Referral ID Status Reason Start Date Expiration Date Visits Re quested Visits Authorized [id number] Closed 12/07/2017 01/11/2018 1 1 Encounter Details Date Type Department Care Team (Latest Contact Info) Description 01/11/2018 7:54 PM EDT Hospital Encounter [facility] [address] [place] [address] Amanuel Elizalde MD 793 [facility] [address] [place] [address] Obstructive sleep apnea; Snoring; Excessive [...] Elizalde MD - 01/12/2018 4:15 PM EDT [facility] Pulmonary, Critical Care, and Sleep Medicine Amanuel Elizalde M.D. 793 [facility] [address] Medical Office [facility] # 3[place] [id number]. POLYSOMNOGRAPHY INTERPRETATION Date of Study: 01/11/2018 Patient [...] a co-existing sleep disorder such as Narcolepsy, POOL INSTALLER Hypersomnolence or Insufficient Sleep Syndrome. To sort [...] feel free to contact the office of [facility] Pulmonary, Critical Care and Sleep Medicine at [phone], if you have any questions. Best regards, This document was electronically signed by Amanuel Elizalde MD January 12, 2018 4:11 PM Procedure Note Amanuel Elizalde MD - 01/12/2018 [facility] Pulmonary, Critical Care, and Sleep Medicine Amanuel Elizalde M.D. 793 [facility] [address] Medical Office Building # [address] [id number]. POLYSOMNOGRAPHY INTERPRETATION Date of Study: 01/11/2018 Patient [...] has a co-existing sleep disorder such asNarcolepsy, POOL INSTALLER Hypersomnolence or Insufficient Sleep Syndrome. To sort [...] feel free to contact the [facility] at [phone], if you haveany questions. Best regards, This [...] documented as of this encounter Care Teams Abstracter Relationship Specialty Start Date End Date Kamlesh Abdullahi MD [address] [place] [address] PCP - General Internal Medicine 06/21/17 01/15/19 documented as of this encounter
--- OUTSIDE RECORDS SUMMARY | 2018-03-10 11:00 | XMS_ITS | Encounter Summary ---
[facility] [address] [place] [address] Care Team Providers Care Industrial Safety And Health Specialist Name Role Phone Kamlesh Abdullahi MD Primary Care Provider [phone] Reason for Visit * Hospital - Outpatient (Routine) - Closed Specialty Diagnoses / Procedures Referred By Patricia neri Referred To Contact Sleep Medicine Diagnoses Dystonia Partial symptomatic epilepsy with complex partial seizures, not intractable, without status epilepticus Procedures EEG EEG Awake or Asleep Routine Regan Bruno MD Phone: tel: fax: [facility] SENIOR IT SECURITY ANALYST DI[facility] CTR [address] [place] [address] Phone: tel: Referral ID Status Reason Start Date Expiration Date Visits Re quested Visits Authorized [id number] Closed 02/28/2018 02/28/2019 1 1 Encounter Details Date Type Department Care Team (Latest Contact Info) Description 03/10/2018 12:00 PM EDT Hospital Encounter [facility] SENIOR IT SECURITY ANALYST DI[facility] [address] [place] [address] Regan Bruno MD [address] [place] [address] Dystonia; Partial symptomatic epilepsy with complex partial [...] documented as of this encounter Care Teams Industrial Safety And Health Specialist Relationship Specialty Start Date End Date Kamlesh Abdullahi MD [address] [place], [place] [id number] PCP - General Internal Medicine 06/21/17 01/15/19 documented as of this encounter
--- NOTE | 2025-07-30 14:30 | XR_ITS ---
FINAL REPORT CLINICAL HISTORY: fall last week, pain FINDINGS: RIGHT HAND Three views demonstrate no acute fracture or dislocation. The visualized joint spaces are normally aligned. The soft tissues are unremarkable. IMPRESSION: No acute bony abnormality. Reviewed, Interpreted and Dictated by Yael Tinoco MD Transcribed by Alicia Sadler Authenticated and [facility]
--- NOTE | 2025-07-30 14:30 | XR_ITS ---
FINAL REPORT CLINICAL HISTORY: fall last week, pain FINDINGS: AP, oblique, and lateral views of the right wrist were obtained. There is no prior exam for comparison. There is no acute fracture or dislocation. The joint spaces are preserved. The soft tissues are normal. IMPRESSION: No acute osseous abnormality of the right wrist. Reviewed, Interpreted and Dictated by Yael Tinoco MD Transcribed by Alicia Sadler Authenticated and [facility]
--- NOTE | 2025-07-30 14:32 | HMH.EDGENADL ---
Discharge Plan Disposition Patient Disposition: Home, Self-Care Prescriptions Prescriptions: No Action naloxone [Narcan] 4 mg/actuation spray,non-aerosol 4 mg intranasal Q3M PRN (Reason: opioid overdose) Qty: 2 2RF Rx Instructions: spray 1 dose into ONE nostril; alternate nostrils w each dose until help arrives lidocaine 4 % adhesive patch,medicated topical albuterol sulfate [Ventolin HFA] 90 mcg/actuation HFA aerosol inhaler 2 puff inhalation Q6H PRN (Reason: shortness of breath or wheezing) Qty: 8.5 2RF ropinirole 1 mg tablet 1 mg PO DAILY Qty: 30 2RF guaifenesin 600 mg tablet extended release 12hr 600 mg PO DAILY Qty: 90 2RF benzonatate 100 mg capsule 100 mg PO TID PRN (Reason: cough) Qty: 30 0RF sennosides [senna] 8.6 mg tablet 8.6 mg PO .COMPLEX PRN (Reason: constipation) Qty: 30 2RF Rx Instructions: 8.6 mg orally PRN; levothyroxine 50 mcg tablet See Rx Instructions .ROUTE .COMPLEX Qty: 90 0RF Dose Instruction: TAKE 1 TABLET BY MOUTH ONCE DAILY Rx Instructions: TAKE 1 TABLET BY MOUTH ONCE DAILY bupropion HCl 300 mg tablet extended release 24 hr See Rx Instructions .ROUTE .COMPLEX Qty: 90 1RF Dose Instruction: TAKE ONE (1) TABLET BY MOUTH ONCE DAILY Rx Instructions: TAKE ONE (1) TABLET BY MOUTH ONCE DAILY venlafaxine 150 mg capsule,extended release 24hr 150 mg PO DAILY Qty: 150 0RF polyethylene glycol 3350 [Miralax] 17 gram/dose powder 17 g PO DAILY Qty: 510 0RF oxycodone-acetaminophen 7.5-325 mg tablet 1 tab PO TID ondansetron 4 mg tablet,disintegrating 4 mg PO Q8H PRN (Reason: nausea and vomiting) 5 Days Qty: 10 0RF valacyclovir [Valtrex] 1 gram tablet 1,000 mg PO DAILY PRN (Reason: herpes) fenofibrate nanocrystallized 145 mg tablet 145 mg PO DAILY Rx Instructions: TAKE ONE TABLET BY MOUTH ONCE A DAY methocarbamol 500 mg tablet 1,000 mg PO Q8H PRN (Reason: muscle pain and spasm) Qty: 30 0RF Referrals Follow up/Referrals: Regan Navarrete APRN [Primary Care Provider, Family Practice] - See instructions Activity Restrictions/Add. Instructions Additional Instructions/Restrictions: Wear Cameron wrap for comfort. Take ibuprofen and Tylenol as directed for pain and swelling. If any worsening problems or concerns please see PCP Clinical Impressions Clinical Impression: Right wrist sprain, Hand sprain Instructions Patient Instructions: DI for Wrist Sprain Print Language Print Language: Upper Sorbian Discharge ED Provider: Leobardo Walker General Adult HPI General Chief complaint: PAIN Stated complaint: AO 07/27 Fall - Right Hand Injury Time Seen by Provider: 07/30/25 14:28 History of Present Illness HPI narrative: 64-year-old female presents to the ED today after falling a week ago and hurting her right hand. She has right hand and wrist pain. No obvious injury. She does have some bruising. She has no complaint of any other pain Related Data Home Medications ?Medication ?Instructions ?Recorded ?Confirmed oxycodone-acetaminophen 7.5 mg-325 1 tab PO TID 06/09/24 07/17/25 mg tablet fenofibrate nanocrystallized 145 145 mg PO DAILY 01/29/25 07/17/25 mg tablet valacyclovir 1 gram tablet 1,000 mg PO DAILY PRN herpes 01/29/25 07/17/25 (Valtrex) lidocaine 4 % topical patch patch topical 05/02/25 07/17/25 Previous Rx's ?Medication ?Instructions ?Recorded polyethylene glycol 3350 17 17 g PO DAILY #510 grams 06/12/24 gram/dose oral powder (Miralax) ondansetron 4 mg disintegrating 4 mg PO Q8H PRN nausea and 01/20/25 tablet vomiting 5 days #10 tabs naloxone 4 mg/actuation nasal 4 mg intranasal Q3M PRN opioid 02/06/25 spray (Narcan) overdose #2 ea sennosides 8.6 mg tablet (senna) 8.6 mg PO .COMPLEX PRN 04/18/25 constipation #30 ea albuterol sulfate 90 mcg/actuation 2 puff inhalation Q6H PRN 05/02/25 aerosol inhaler (Ventolin HFA) shortness of breath or wheezing #8.5 grams levothyroxine 50 mcg tablet See Rx Instructions .Route 05/15/25 .COMPLEX #90 tabs bupropion HCl 300 mg 24 hr tablet, See Rx Instructions .Route 07/09/25 extended release .COMPLEX #90 tabs methocarbamol 500 mg tablet 1,000 mg (2 x 500 mg) PO Q8H PRN 07/10/25 muscle pain and spasm #30 tabs benzonatate 100 mg capsule 100 mg PO TID PRN cough #30 caps 07/17/25 guaifenesin 600 mg tablet, 600 mg PO DAILY #90 tabs 07/17/25 extended release 12 hr ropinirole 1 mg tablet 1 mg PO DAILY #30 tabs 07/17/25 venlafaxine 150 mg 150 mg PO DAILY #150 caps 07/18/25 capsule,extended release 24 hr Allergies Allergy/AdvReac Type Severity Reaction Status Date / Time loratadine Allergy Mild Agression Verified 07/17/25 15:35 calamine Allergy Rash Verified 07/17/25 15:35 meloxicam (From Mobic) Allergy RESTLESS Verified 07/17/25 15:35 LEGS, NAUSEA Corticosteroids AdvReac Intermediate AGGRESION Verified 07/17/25 15:35 (Glucocorticoids) (steroids) Antihistamines - Alkylamine AdvReac Mild MANIC Verified 07/17/25 15:35 aripiprazole (From Abilify) AdvReac Mild AGRESSION Verified 07/17/25 15:35 bacitracin (From Neosporin AdvReac Mild MORE RED, Verified 07/17/25 15:35 (nqg-vyl-kidax)) IRRITATED brexpiprazole (From Rexulti) AdvReac Mild AGRESSIVE Verified 07/17/25 15:35 buspirone (From BuSpar) AdvReac Mild AGRESSIVE Verified 07/17/25 15:35 cariprazine (From Vraylar) AdvReac Mild HIGH ENERGY Verified 07/17/25 15:35 celecoxib (From Celebrex) AdvReac Mild Headache Verified 07/17/25 15:35 chlordiazepoxide (From AdvReac Mild SHAKES Verified 07/17/25 15:35 Librium) chlorpromazine (From AdvReac Mild MANIC Verified 07/17/25 15:35 Thorazine) clomipramine (From Anafranil) AdvReac Mild RLS Verified 07/17/25 15:35 clonazepam (From Klonopin) AdvReac Mild HIGH ENERGY Verified 07/17/25 15:35 codeine AdvReac Mild Anaphylaxis Verified 07/17/25 15:35 cyclobenzaprine (From AdvReac Mild RLS Verified 07/17/25 15:35 Flexeril) desipramine (From Norpramin) AdvReac Mild RLS Verified 07/17/25 15:35 desvenlafaxine (From Pristiq) AdvReac Mild AGRESIVE Verified 07/17/25 15:35 dexmedetomidine AdvReac Mild RLS Verified 07/17/25 15:35 divalproex sodium (From AdvReac Mild HEADACHE, Verified 07/17/25 15:35 Depakote) SWELLING duloxetine (From Cymbalta) AdvReac Mild AGRESSIVE Verified 07/17/25 15:35 eszopiclone (From Lunesta) AdvReac Mild NOT Verified 07/17/25 15:35 AFFECTIVE fluoxetine (From Prozac) AdvReac Mild MANIC Verified 07/17/25 15:35 hydrocodone (From Vicodin) AdvReac Mild ITCHING Verified 07/17/25 15:35 ibuprofen AdvReac Mild RLS Verified 07/17/25 15:35 lorazepam (From Ativan) AdvReac Mild RLS Verified 07/17/25 15:35 lurasidone (From Latuda) AdvReac Mild HYPER Verified 07/17/25 15:35 meperidine (From Demerol) AdvReac Mild RLS Verified 07/17/25 15:35 mirtazapine (From Remeron) AdvReac Mild RLS Verified 07/17/25 15:35 morphine AdvReac Mild Anaphylaxis Verified 07/17/25 15:35 neomycin (From Neosporin AdvReac Mild REDNESS Verified 07/17/25 15:35 (kha-lpr-yglgj)) paroxetine (From Paxil) AdvReac Mild RLS Verified 07/17/25 15:35 perphenazine (From Trilafon) AdvReac Mild RLS Verified 07/17/25 15:35 polymyxin B (From Neosporin AdvReac Mild REDNESS Verified 07/17/25 15:35 (oda-hqk-wzlse)) propranolol (From Inderal [place]) AdvReac Mild RLS Verified 07/17/25 15:35 quetiapine (From Seroquel) AdvReac Mild MANIC Verified 07/17/25 15:35 risperidone (From Risperdal) AdvReac Mild AGRESSIVE Verified 07/17/25 15:35 temazepam (From Restoril) AdvReac Mild HYPER Verified 07/17/25 15:35 topiramate (From Topamax) AdvReac Mild RLS Verified 07/17/25 15:35 tramadol (From Ultram) AdvReac Mild HYPER Verified 07/17/25 15:35 vortioxetine (From AdvReac Mild HYPER Verified 07/17/25 15:35 Trintellix) ziprasidone (From Geodon) AdvReac Mild HYPER Verified 07/17/25 15:35 zolpidem (From Ambien) AdvReac Mild HYPER Verified 07/17/25 15:35 acetaminophen (From Vicodin) AdvReac Hallucinati Verified 07/17/25 15:35 ng PFSH PFS Disclaimer: The information contained in this section may have been updated after the patient was seen, as this information can be updated by other users. Medical History Homicidal ideation Suicidal ideation History of anoxic brain injury Apparently associated with amitriptyline overdose in 1993, details unknown Stroke Postmenopausal bleeding Constipation Constipation Low back pain Herpes genitalis in women Falls Hx of falls related to CVA weakness, drop foot Imbalance Reports intermittent imbalance throughout her life span, multiple falls, some with injuries History of cocaine use Younger days Peroneal tendinitis, left leg Left-sided weakness History of stroke Apparently associated with amitriptyline overdose in 1993, details unknown Primary osteoarthritis of right knee Acute pain of right knee Left foot pain Patient new to facility Asthma Dyspnea on exertion History of multiple strokes Frequent falls Hyperlipemia Sjogrens syndrome Muscle spasm Dystonia Surgical History History of foot surgery History of left oophorectomy History of endometrial ablation H/O cervical spine surgery H/O hernia repair History of tonsillectomy Hx of appendectomy History of cholecystectomy History of arthroplasty of left ankle Family History Other Cancer Coronary artery disease Diabetes FHx: mental illness Hypertension Substance abuse Thyroid disorder Social History Smoking Status: Current every day smoker alcohol intake: former substance use type: denies use, former substance user, marijuana, crack/cocaine, opiates and prescription drug current occupational status: disabled Travel in the last 8 weeks?: None household members: significant other housing: house marital status: Have you lived/traveled outside US in past 30 days?: No Contact w/someone who lives/traveled outside US past 30 days?: No Exposure to someone with infectious disease in past 14 days?: No Do you have a fever (greater than 100.4 F or 38 C)?: No Have you tested positive for COVID-19?: No Exposed to someone with COVID-19 in past 14 days?: No Do you have a sore throat?: No Do you have a cough?: No Do you have any weakness?: No Do you have any diarrhea?: No Are you experiencing any unusual bleeding?: No Do you have any muscle aches/pain?: No Do you have any abdominal pain?: No Are you experiencing loss of taste or smell?: No Other Medical History Have you received the Flu Vaccine for this season: No Have you received the Pneumonia Vaccine: Yes ROS Obtained: Yes Systems reviewed as appropriate & no additional complaints except as documented Constitutional Constitutional: Reports as per HPI Physical Exam General General appearance: alert and in no apparent distress Head Head exam: normocephalic Eye Eye exam: Present PERRL and EOMI ENT ENT exam: Present normal oropharynx and mucous membranes moist Neck Neck exam: Present full ROM and trachea midline Respiratory Respiratory exam: Present normal lung sounds bilaterally Cardiovascular Cardiovascular exam: Present regular rate, normal rhythm, normal heart sounds, +S1 and +S2 Extremities Exam Extremities exam: Present full ROM and tenderness Neurological Exam Neurological exam: Present alert and oriented X3 Skin Skin exam: Present warm and dry Medical Decision Making Medical Records Screening: Per USPSTF and CDC recommendations, given the prevalence of disease in our region, it is our hospital?s policy to screen for HIV and viral Hepatitis for all patients aged 18 and over and those with ongoing risk factors. Nghia Inquiry Pt receiving controlled substance: No Nghia was queried for this patient: No Vital Signs: 07/30/25 14:33 07/30/25 15:01 Temperature 98.9 F Temperature Source Oral Pulse Rate [Right] 86 Respiratory Rate 18 Blood Pressure 128/77 Blood Pressure [Right Arm] 169/104 H Blood Pressure Mean 94 Blood Pressure Mean [Right Arm] 125 Blood Pressure Source [Right Arm] Automatic Cuff Blood Pressure Position [Right Arm] Sitting 02 Sat by Pulse Oximetry 99 Oxygen Delivery Method Room Air Orders (Tests/Meds): ORDERS Category Date Time Status Hand XR right minimum 3 views [XR hand RT min 3V] Stat Exams 07/30/25 14:30 Completed Wrist XR right minimum 3 views [XR wrist RT min 3V] Exams 07/30/25 14:30 Completed Stat Medical Decision Narrative: patient is a 64-year-old female presenting to the emergency department for evaluation of right hand and wrist pain after a fall a week ago. Patient is hemodynamically stable and nontoxic-appearing upon arrival, afebrile. Differential diagnosis includes fracture versus sprain or strain. Workup will be conducted with specific imaging. Both x-rays show no acute findings and these were read by radiology. Contacted Dr. Tang to look at the x-rays as the radius and ulna have an abnormal separation. Dr. Tang also looked at these x-rays and he thinks that this is an old fracture or congenital ulnar positive wrist. Patient wants a Cameron wrap just for comfort. Patient can take Tylenol and ibuprofen at home. Patient safe for discharge home. Critical Care Critical Care Time Critical Care Time: No
[2025-07-30 14:33] VITALS: BP 169/104; PULSE 86; RESP 18; TEMP 37.2; O2SAT 99; BMI 23.3
--- OUTSIDE RECORDS SUMMARY | 2025-07-30 14:49 | XMS_ITS | Encounter Summary ---
[facility] Organization [facility] Address [address] [place] [address] Care Team Providers Care Wildlife Protector Name Role Phone Red Tamayo MD Primary Care Provider [phone] Encounter Details Date Type Department Care Team (Late st Contact Info) Description 09/07/2017 Telephone [facility] [address] [phone] Kamlesh Abdullahi MD [address] [address] Social History Tobacco Use Types [...] documented as of this encounter Care Teams Wildlife Protector Relationship Specialty Start Date End Date Red Tamayo MD [address] [place] [address] PCP - General Pain Medicine 12/29/23 documented as of this encounter
--- OUTSIDE RECORDS SUMMARY | 2025-07-30 14:49 | XMS_ITS | Referral Summary ---
Author Organization [employer] ([place], [place], [place], [place], [place]) Address [address] [place] [address] Care Team Providers Care Slotter Operator Helper Name Role Phone Jaelyn Renteria APRN [...] High 12/16/2012 Other reaction(s): Confusion, Flushing, Hallucinations Yguufpcc-Ynnjgoxubn-Tgn ymyxin Itching High 10/07/2022 Other Anxiety Low [...] Date Pj rded Speak language other than Cymraes at home Not on file 09/11/2023 Want [...] Treatment Not on file Insurance Care Teams Slotter Operator Helper Relationship Specialty Start Date End Date Jaelyn Renteria, SUPERVISOR FLESHING [address] [place] [address] PCP - General Family Medicine 10/06/22 Vanessa Green MD [address] [place] [phone] Dot Compliance Coordinator Rheumatology 10/06/22
--- OUTSIDE RECORDS SUMMARY | 2025-07-30 14:49 | XMS_ITS | Clinical Summary ---
Author Organization [facility] ([place], [place], [place], [place], [place]) Address [address] [place] [address] Care Team Providers Care Technician Plant And Maintenance Name Role Phone Jaelyn Renteria APRN Primary [...] High 12/16/2012 Other reaction(s): Confusion, Flushing, Hallucinations Rmwqgwlc-Wafpwcwbik-Zbc ymyxin Itching High 10/07/2022 Other Anxiety Low [...] Date Pj rded Speak language other than Kittitian at home Not on file 09/11/2023 Want [...] - 1-dose 75+ series) 12/03/2034 Insurance [place], [place] [id number] [place] Care Teams Technician Plant And Maintenance Relationship Specialty Start Date End Date Jaelyn Renteria, TIPPLE BOSS [address] [place] [address] PCP - General Family Medicine 10/06/22 Vanessa Green MD [address] [place] [phone] Aircraft Rigging And Controls Mechanic Rheumatology 10/06/22
--- OUTSIDE RECORDS SUMMARY | 2025-07-30 14:49 | XMS_ITS | Clinical Summary ---
Author Organization [facility] Address [address] [place] [address] Care Team Providers Care Boxing Inspector Name Role Phone Red Tamayo MD Primary Care Provider [phone]- [phone] Allergies Active Allergy Reactions Criticality Noted Date [...] 11/23/19 Active Narcan 4 MG/0.1ML nasal spray [place] Nasal Use as directed in case of overdose 08/20/20 Active vitamin D (ERGOCALCIFEROL) 1.25 MG (19984 UT) capsule capsule Take 1 capsule by [...] mammogram report. [place]. [address] NOTE: If a biopsy is performed on [...] or clustered microcalcifications. us Shannon Campbell MANAGER [facility] MAMMOGRAPHY ORDERABL ES Final Result * [...] with a HCV Nucleic Acid Amplification test ([id number]). Blood Venipuncture / Unknown 08/06/2017 9:40 AM EST 08/06/2017 10:11 AM EST Narrative [facility] - 08/10/2017 5:11 AM EST Performed at: - [address] [id number] Lead Shipper: Costa Munoz PhD, Phone: [phone] Kamlesh Abdullahi MD LAB BLOOD ORDERABLES Final Re sult [facility] [address] [place] [id number], * (ABNORMAL) Lipid Panel (08/06/2017 9:40 AM EST) [facility] Total Cholesterol 234(H) 0 - 199 mg/dL 08/06/2017 10:31 AM EST [facility] Triglycerides 97 <150 mg/dL 08/06/2017 10:31 AM EST [facility] HDL Cholesterol 61(H) 40 - 60 mg/dL 08/06/2017 10:31 AM EST [facility] LDL Cholesterol 154(H) 0 - 99 mg/dL 08/06/2017 10:31 AM EST [facility] VLDL Cholesterol 19.4 mg/dL 08/06/20 17 10:31 AM EST [facility] LDL/HDL Ratio 2.52 08/06/2017 10:31 AM EST [facility] Blood Venipuncture / Unknown 08/06/2017 9:40 AM EST 08/06/2017 10:11 AM EST Narrative [facility] - 08/06/2017 10:31 AM EST Reference ranges for triglycerides, VLDL cholesterol, LDL cholesterol, and HDL cholesterol are not true population normal ranges but are threshold levels for increased risk of coronary artery disease established by ATP III guidelines from the National Cholesterol Education Program. us Kamlesh Abdullahi MD LAB BLOOD ORDERABLES Final Re sult [facility]
[address] [place] [address], from Last 3 Months or Most Recently Relevant to Health Maintenance Additional Health Concerns Infection Onset Date Last Indicated COVID (History) 03/11/2021 03/11/2021 Insurance MEDICAID [place] Advance Directives Documents on File Type Date Recorded Patient President/Gm Production & Live Experiences Expl anation PATIENT ADVANCE DIRECTIVES - SCAN 03/17/2023 3:46 PM PATIENT ADVANCE DIRECTIVES, BHOWEN, 06/13/2017 PATIENT ADVANCE DIRECTIVES - SCAN 03/17/2022 12:56 PM ADVANCE DIRECTIVE PATIENT ADVANCE DIRECTIVES - SCAN 02/13/2022 10:35 AM ADVANCE DIRECTIVE PATIENT ADVANCE DIRECTIVES - SCAN 03/05/2021 10:34 AM PATIENT ADVANCE DIRECTIVE, BHOWEN, 06/13/2017 PATIENT ADVANCE DIRECTIVES - SCAN 11/27/2020 8:49 AM Care Teams Boxing Inspector Relationship Specialty Start Date End Date Red Tamayo MD [address] [place] [address] PCP - General Pain Medicine 12/29/23
--- OUTSIDE RECORDS SUMMARY | 2025-07-30 14:50 | XMS_ITS | Encounter Summary ---
Author Organization [employer] ([place], [place], [place], [place], [place]) Address [address] [place] [address] Care Team Providers Care Executive Business Coach Name Role Phone Jaelyn Renteria APRN Primary Care Provider [phone] Vanessa Green MD Unavailable Encounter Details Date Type Department Care Team (Late st Contact Info) Description 01/05/2019 Transcribed Document [facility] Family Medicine [facility] [place] [address] ProviderLexi MD [address] [place] [phone] Social History Tobacco Use Types Packs/Day [...] Lexi ProviderMD - 01/05/2019 2:37 PM CDT [address] [address] LILI DAMON :1960 Visit Time:01/05/2019 [...] before breakfast on empty stomach Where: [address] [facility] [address] [place] [address]- Medications What How Much When Instructions Next [...] Garlic and onions. ? Spicy foods. ? Cataño fruits, including oranges, rhianna, or limes. ? [...] 02/01/2009 Document Revised: 11/07/2012 Document Reviewed: 05/09/2016 [employer] Patient Education ?? 2017 [employer] Esophagogastroduodenoscopy, Care After Introduction Refer to [...] times a day. General instructions ??? Take ooks-lec-makqpxs and prescription medicines only as told by [...] to digest. ? Rest often. ??? Take vjtz-ems-lxxkajd or prescription medicines only as told by [...] 09/18/2011 Document Revised: 05/10/2017 Document Reviewed: 05/10/2017 [employer] Patient Education ?? 2017 [employer]. omeprazole (oh MEP ra zol) FIRST Omeprazole, [...] a broken bone while taking this medicine mcfp or more than once per day. What [...] by infection with Helicobacter pylori (H. pylori). Lwqs-jju-eniuwnc (OTC) omeprazole is used to help control [...] medicine exactly as directed. Use Prilosec OTC (kipl-jfk-aqqnfng) exactly as directed on the label, or [...] may report side effects to FDA at 2-489-BRY-8738. What other drugs will affect omeprazole? Sometimes [...] may affect omeprazole. This includes prescription and vmji-yny-imlvvpw medicines, vitamins, and herbal products. Not all [...] to ensure that the information provided by [employer] ('Are You a [employer]') is accurate, up-to-date, and complete, but no guarantee is made to that effect. Drug information contained herein may be time sensitive. [employer] information has been compiled for use by healthcare practitioners and consumers in the [place] and therefore [employer] does not warrant that uses outside of the [place] are appropriate, unless specifically indicated otherwise. [employer] drug information does not endorse drugs, diagnose patients or recommend therapy. [employer] drug information is an informational resource designed [...] effective or appropriate for any given patient. [employer] does not assume any responsibility for any aspect of healthcare administered with the aid of information [employer] provides. The information contained herein is not intended to cover all possible uses, directions, precautions, warnings, drug interactions, allergic reactions, or adverse effects. If you have questions about the drugs you are taking, check with your doctor, nurse or pharmacist. Copyright 5670-5241 [employer] Version: 19.01. Revision Date: 02/21/2018. Emergency Awareness [...] Assistance with quitting is available by contacting 0-008-QXURNOW. This is a free resource providing counseling, support, and referral. Or you may contact your personal physician. [employer] Suicide Prevention Lifeline: The National Suicide Prevention [...] computer, smartphone, or tablet. Just go to [employer] to get started. Questions? Call . Test Results Laboratory or Other Results This Visit (last charted value for your 01/05/2019 visit) No Laboratory or Other Results This Visit Patient Name:JACYLILI ESPANA I have received this information and was given the opportunity to ask questions. Patient/Painter And Body Mechanic Apprentice Name: Patient/Painter And Body Mechanic Apprentice Signature: Relationship to Patient: Clinician/Hospital Painter And Body Mechanic Apprentice Signature: Date: documented in this encounter Plan of Treatment Not on file documented as of this encounter Visit Diagnoses Not on filedocumented in this encounter Care Teams Executive Business Coach Relationship Specialty Start Date End Date Jaelyn Renteria, WORKFORCE ANALYST [address] [place] [address] PCP - General Family Medicine 10/06/22 Vanessa Green MD [address] [place] [phone] Insole Buffer Rheumatology 10/06/22 documented as of this encounter
--- OUTSIDE RECORDS SUMMARY | 2025-07-30 14:50 | XMS_ITS | Encounter Summary ---
Author Organization [employer] ([place], [place], [place], [place], [place]) Address [address] [place] [address] Care Team Providers Care Supervisor Throwing Department Name Role Phone Jaelyn Renteria APRN Primary Care Provider Vanessa Green MD Unavailable Encounter Details Date Type Department Care Team (Late st Contact Info) Description 01/05/2019 Transcribed Document [facility] [place] [address] ProviderLexi MD [address] [place] [address] Social History Tobacco Use Types Packs/Day [...] Endo PACU Summary Primary Physician: GILBERT OLSON MD-[facility] Finalized Date/Time: 01/05/19 14:45:28 Pt. Name: LILI DAMON D.O.B./Sex: 1960 Female Med Rec #: [id number] Physician: GILBERT OLSON MD-[facility] Financial #: [id number] Pt. Type: O Room/Bed: [facility] [place]/ Admit/Disch: 01/05/19 12:03:00 - Institution: E Endo PACU Case Times Entry 1 In PACU I 01/05/19 14:00:00 Ready for PACU 01/05/19 14:36:00 Discharge Discharge from PACU 01/05/19 14:45:00 I SJE Endo PACU Case Times Audit 01/05/19 14:45:24 Lay Out Helper: [id number] Modifier: [id number] <+> 1 Discharge from PACU I 01/05/19 14:43:14 Lay Out Helper: [id number] Modifier: [id number] <+> 1 Ready for PACU Discharge Finalized By: Alee Rose RN Document Signatures Signed By: Alee Rose RN 01/05/19 14:45 Electronically signed by [employer] [facility] Conversion Relations Specialist Cerner at 12/14/2022 11:51 AM CDT documented in this encounter Plan of Treatment Not on file documented as of this encounter Visit Diagnoses Not on filedocumented in this encounter Care Teams Supervisor Throwing Department Relationship Specialty Start Date End Date Jaelyn Renteria, SAMPLE PATTERNMAKER [address] [place] [address] PCP - General Family Medicine 10/06/22 Vanessa Green MD [address] [place] [phone] Plunket Nurse Rheumatology 10/06/22 documented as of this encounter
--- OUTSIDE RECORDS SUMMARY | 2025-07-30 14:50 | XMS_ITS | Encounter Summary ---
Author Organization [employer] ([place], [place], [place], [place], [place]) Address [address] [place] [address] Care Team Providers Care Senior Patient Account Representative Name Role Phone Jaelyn Renteria APRN Primary Care Provider Vanessa Green MD Unavailable Encounter Details Date Type Department Care Team (Late st Contact Info) Description 01/05/2019 Transcribed Document [facility] [place] [facility] [place] [address] ProviderLexi MD [address] [place] [address] Social History Tobacco Use Types Packs/Day [...] Source : Stated Height Entry Format : [place] Height, Feet : 5 ft(Converted to: 152 cm, 60 Inch) Height, Inches : 6 Inch(Converted to: 0 ft 6 Inch, 15.24 cm) Clinical Height : 167.64 cm Weight Source : Standing scale Weight Entry Format : [place] [facility] Weight : 66.36 kg Weight, Pounds : 146 lb Body Surface Area (BSA) : 1.75 m2 Body Mass Index : 23.6 kg/m2 [place] Body Weight : 59 kg Albina Dove [...] Ambulatory Legal Guardian : Friend Support Person/Patient Account Executive Metalworking : Yes Support Person/Pt Rep Name : maria teresa Support Person/Pt Rep Contact Information : [phone] Want Family/Rep/Phys Notified of Admit : No Emergency Contact #1 : na Emergency Contact #1 Phone Number : bryon Emergency Contact #1 Relationship : rhonda Emergency Contact #2 : a Emergency Contact #2 Phone Number : jeffrey Emergency Contact #2 Relationship : na Information Obtained From : Patient Primary Language : Armenian Preferred Communication Mode : Verbal Communication Barrier [...] Scale Risk Level : 25-45 Medium Risk [place] Fall Interventions : Adequate lighting, Assistive devices [...] on filedocumented in this encounter Care Teams Senior Patient Account Representative Relationship Specialty Start Date End Date Jaelyn Renteria, SHIPPER [address] [place] [address] PCP - General Family Medicine 10/06/22 Vanessa Green MD [address] [place] [phone] Ash Kier Boiler Rheumatology 10/06/22 documented as of this encounter
--- OUTSIDE RECORDS SUMMARY | 2025-07-30 14:50 | XMS_ITS | Encounter Summary ---
Author Organization [employer] ([place], [place], [place], [place], [place]) Address [address] [place] [address] Care Team Providers Care Pbx Mechanic Name Role Phone Jaelyn Renteria APRN Primary Care Provider Vanessa Green MD Unavailable Encounter Details Date Type Department Care Team (Late st Contact Info) Description 01/05/2019 Transcribed Document [facility] [place] [facility] [place] [address] ProviderLexi MD [address] [place] [address] Social History Tobacco Use Types Packs/Day [...] Garlic and onions. ? Spicy foods. ? [place] fruits, including oranges, rhianna, or limes. ? [...] 02/01/2009 Document Revised: 11/07/2012 Document Reviewed: 05/09/2016 [employer] Patient Education ? 2017 [employer] Esophagogastroduodenoscopy, Care After Introduction Refer to [...] 2?3 times a day. General instructions??? Take dvws-cqu-bebqwmw and prescription medicines only as told by [...] to digest. ? Rest often. ??? Take vhvo-ujs-pgcywug or prescription medicines only as told by [...] 09/18/2011 Document Revised: 05/10/2017 Document Reviewed: 05/10/2017 [employer] Patient Education ? 2016 [employer] Electronically signed by Jarocho Traore Conversion Handstitching Machine Armhole Feller Cerner at 12/14/2022 11:59 AM CDT documented in this encounter Plan of Treatment Not on file documented as of this encounter Visit Diagnoses Not on filedocumented in this encounter Care Teams Pbx Mechanic Relationship Specialty Start Date End Date Jaelyn Renteria, ASSISTANT MERCHANDISER [address] [place] [address] PCP - General Family Medicine 10/06/22 Vanessa Green MD [address] [place] [phone] Carbon Sequestration Plant Operator Rheumatology 10/06/22 documented as of this encounter
--- OUTSIDE RECORDS SUMMARY | 2025-07-30 14:50 | XMS_ITS | Encounter Summary ---
Author Organization [employer] ([place], [place], [place], [place], [place]) Address [address] [place] [address] Care Team Providers Care Charge Machine Operator Name Role Phone Jaelyn Renteria APRN Primary Care Provider Vanessa Green MD Unavailable Encounter Details Date Type Department Care Team (Late st Contact Info) Description 03/10/2019 Transcribed Document [facility] [place] [facility] [address] ProviderLexi MD [address] [place] [address] Social History Tobacco Use Types Packs/Day [...] the post procedure area in stable condition Electronically signed by Jarocho Traore Conversion Business Development Director Cerner at 12/14/2022 12:08 PM CDT documented in this encounter Plan of Treatment Not on file documented as of this encounter Visit Diagnoses Not on filedocumented in this encounter Care Teams Charge Machine Operator Relationship Specialty Start Date End Date Jaelyn Renteria, CORRECTIONAL PROBATION OFFICER [address] [place] [address] PCP - General Family Medicine 10/06/22 Vanessa Green MD [address] [place] [phone] Academic Affairs Manager Rheumatology 10/06/22 documented as of this encounter
--- OUTSIDE RECORDS SUMMARY | 2025-07-30 14:50 | XMS_ITS | Encounter Summary ---
Author Organization [employer] ([place], [place], [place], [place], [place]) Address [address] [place] [address] Care Team Providers Care Early Childhood Associate Teacher Name Role Phone Jaelyn Renteria APRN Primary Care Provider [phone] Vanessa Green MD Unavailable Encounter Details Date Type Department Care Team (Late st Contact Info) Description 06/10/2019 Transcribed Document [facility] [place] [facility] [place] [address] ProviderLexi MD [address] [place] [address] Social History Tobacco Use Types Packs/Day [...] constant. Heat therapy is beneficial. She takes defs-lyn-sltflzn Tylenol and ibuprofen. She has had his [...] weeks. Meghan Abdullahi MD Electronically signed by [facility] Conversion Pre Sales Architect Cerner at 12/14/2022 11:47 AM CDT documented in this encounter Plan of Treatment Not on file documented as of this encounter Visit Diagnoses Not on filedocumented in this encounter Care Teams Early Childhood Associate Teacher Relationship Specialty Start Date End Date Jaelyn Renteria, SUPERCHARGE REPAIR SUPERVISOR [address] [place] [address] PCP - General Family Medicine 10/06/22 Vanessa Green MD [address] [place] [phone] Cleaning Professional Rheumatology 10/06/22 documented as of this encounter
--- OUTSIDE RECORDS SUMMARY | 2025-07-30 14:50 | XMS_ITS | Encounter Summary ---
Author Organization [employer] ([place], [place], [place], [place], [place]) Address [address] [place] [address] Care Team Providers Care Psychotherapist Social Worker Name Role Phone Jaelyn Renteria APRN Primary Care Provider Vanessa Green MD Unavailable Encounter Details Date Type Department Care Team (Late st Contact Info) Description 07/04/2019 Transcribed Document [facility] [place] [facility] [place] [address] ProviderLexi MD [address] [place] [address] Social History Tobacco Use Types Packs/Day [...] Lexi Vickers MD - 07/04/2019 2:30 PM DIRECTOR DIABETES Patient: LILI DAMON Age: 58 Years Sex: [...] on filedocumented in this encounter Care Teams Psychotherapist Social Worker Relationship Specialty Start Date End Date Jaelyn Renteria, LAMINATING MACHINE FEEDER [address] [place] [address] PCP - General Family Medicine 10/06/22 Vanessa Green MD [address] [place] [phone] Barrel Cleaner Rheumatology 10/06/22 documented as of this encounter
--- OUTSIDE RECORDS SUMMARY | 2025-07-30 14:50 | XMS_ITS | Encounter Summary ---
Author Organization [employer] ([place], [place], [place], [place], [place]) Address [address] [place] [address] Care Team Providers Care Car Body Designer Name Role Phone Jaelyn Renteria APRN Primary Care Provider Vanessa Green MD Unavailable Encounter Details Date Type Department Care Team (Late st Contact Info) Description 04/13/2019 Transcribed Document [facility] [place] [address] ProviderLexi MD [address] [place] [address] Social History Tobacco Use Types Packs/Day [...] Electronically signed by Jarocho Traore Conversion Supervisor Television Chassis Repair Cerner at 12/14/2022 12:13 PM CDT documented in this encounter Plan of Treatment Not on file documented as of this encounter Visit Diagnoses Not on filedocumented in this encounter Care Teams Car Body Designer Relationship Specialty Start Date End Date Jaelyn Renteria, CONTRACTING MANAGER [address] [place] [address] PCP - General Family Medicine 10/06/22 Vanessa Green MD [address] [place] [phone] Peanut Sheller Rheumatology 10/06/22 documented as of this encounter
--- OUTSIDE RECORDS SUMMARY | 2025-07-30 14:50 | XMS_ITS | Clinical Summary ---
Author Organization [facility] Address [address] [place] [address] Care Team Providers Care Real Estate Site Analyst Name Role Phone Pcp, No Primary Care [...] Wellness (AWV) 1960 [facility]-/Child/Adol SDOH Screenings 1960 [id number] Vaccine (#1) 12/03/1964 [facility]- SDOH Screenings 12/03/1977 [...] Narrative SUNQUEST - 04/23/1997 12:00 AM EDT [facility] MR #: [id number] [facility] LILI DAMON [place], [place] [address] 1960 (Age: 36) FW Collect Date: 04/17/1997 00:00 Receipt Date: 04/18/1997 00:00 Page 1 DEPARTMENT OF PATHOLOGY AND LABORATORY MEDICINE CYTOPATHOLOGY REPORT Email: [email or web address] * Converted Case * This report may not match the original report format ATTENDING MD/Practitioner: Mary Galan MD Service: INTERMEDIATE FRAME TENDER Location: Reported: 04/23/1997 00:00 Collected: 04/17/1997 00:00 [...] results is suggested (please call Microbiology at [phone] for results). CLINICAL INFORMATION: Menstrual History: {Not Provided} Date of Last Menstrual Period: {Not Provided} SPECIMEN DESCRIPTION: A: THIN PREP(CERVICAL/ENDOCERVICAL)., THIN PREP PAP ICD: F: {Not Entered} SNOMED CODES: 1; K2K048.3 [id number] In cases where a pathologist has signed out the report, the service has been rendered in part by a resident. The signing pathologist has performed and is responsible for the reported pathologic evaluation. us Yumiko Galan MD LAB PATHOLOGY ORDERABLES Mi cornejo Result SUNQUEST from Last 3 Months or Most Recently Relevant to Health Maintenance Insurance [place]ICA[place] AETNA MEDICARE Care Teams Real Estate Site Analyst Relationship Specialty Start Date End Date Pcp, Alicia [address] [place] [address] PCP - General Family Medicine 02/01/25
--- OUTSIDE RECORDS SUMMARY | 2025-07-30 14:50 | XMS_ITS | Encounter Summary ---
Author Organization [employer] ([place], [place], [place], [place], [place]) Address [address] [place] [address] Care Team Providers Care Marketing Technology Specialist Name Role Phone Jaelyn Renteria APRN Primary Care Provider [phone] Vanessa Green MD Unavailable Encounter Details Date Type Department Care Team (Late st Contact Info) Description 04/27/2019 Transcribed Document [facility] [place] [facility] [place] [address] ProviderLexi MD [address] [place] [address] Social History Tobacco Use Types Packs/Day [...] filedocumented in this encounter Care Teams Marketing Technology Specialist Relationship Specialty Start Date End Date Jaelyn Renteria, FIREARMS SALES ASSOCIATE [address] [place] [address] PCP - General Family Medicine 10/06/22 Vanessa Green MD [address] [place] [phone] Director Radio News Rheumatology 10/06/22 documented as of this encounter
--- OUTSIDE RECORDS SUMMARY | 2025-07-30 14:50 | XMS_ITS | Encounter Summary ---
Author Organization [employer] ([place], [place], [place], [place], [place]) Address [address] [place] [address] Care Team Providers Care Lost Charge Card Clerk Name Role Phone Jaelyn Renteria APRN Primary Care Provider Vanessa Green MD Unavailable Encounter Details Date Type Department Care Team (Late st Contact Info) Description 01/05/2019 Transcribed Document [facility] [place] Family Medicine Counts include 234 beds at the [facility] [place] [address] ProviderLexi MD [address] [place] [address] Social History Tobacco Use Types Packs/Day [...] Lexi ProviderMD - 01/05/2019 2:12 PM CDT [address] [address] LILI DAMON :1960 Visit Time:01/05/2019 [...] MD-GAE When Only if needed Where: [address] [facility] [address] [place] [id number]- Medications What How Much When Instructions Next [...] a broken bone while taking this medicine chcf or more than once per day. What [...] by infection with Helicobacter pylori (H. pylori). Dweq-jeg-snyzsix (OTC) omeprazole is used to help control [...] medicine exactly as directed. Use Prilosec OTC (glgw-daq-dgzyahy) exactly as directed on the label, or [...] may report side effects to FDA at [phone]-[phone]. What other drugs will affect omeprazole? Sometimes [...] may affect omeprazole. This includes prescription and fvvw-slg-rxtkolc medicines, vitamins, and herbal products. Not all [...] to ensure that the information provided by [employer] ('[employer]') is accurate, up-to-date, and complete, but no guarantee is made to that effect. Drug information contained herein may be time sensitive. [employer] information has been compiled for use by healthcare practitioners and consumers in the [place] and therefore [employer] does not warrant that uses outside of the [place] are appropriate, unless specifically indicated otherwise. [employer]s drug information does not endorse drugs, diagnose patients or recommend therapy. [employer]s drug information is an informational resource designed [...] effective or appropriate for any given patient. [employer] does not assume any responsibility for any aspect of healthcare administered with the aid of information [employer] provides. The information contained herein is not intended to cover all possible uses, directions, precautions, warnings, drug interactions, allergic reactions, or adverse effects. If you have questions about the drugs you are taking, check with your doctor, nurse or pharmacist. Copyright 1676-0785 [employer] Version: 19.01. Revision Date: 02/21/2018. Emergency Awareness [...] Assistance with quitting is available by contacting 2-279-KHYF-NOW. This is a free resource providing counseling, [...] computer, smartphone, or tablet. Just go to [employer] to get started. Questions? Call . Test Results Laboratory or Other Results This Visit (last charted value for your 01/05/2019 visit) No Laboratory or Other Results This Visit Patient Name:LILI DAMON I have received this information and was given the opportunity to ask questions. Patient/Auto Driver Name: Patient/Auto Driver Signature: Relationship to Patient: Clinician/Hospital Auto Driver Signature: Date: documented in this encounter Plan of Treatment Not on file documented as of this encounter Visit Diagnoses Not on filedocumented in this encounter Care Teams Lost Charge Card Clerk Relationship Specialty Start Date End Date Jaelyn Renteria, GLEASON OPERATOR [address] [place] [address] PCP - General Family Medicine 10/06/22 Vanessa Green MD [address] [place] [phone] Pile Operator Rheumatology 10/06/22 documented as of this encounter
--- OUTSIDE RECORDS SUMMARY | 2025-07-30 14:50 | XMS_ITS | Encounter Summary ---
Author Organization [employer] ([place], [place], [place], [place], [place]) Address [address] [place] [address] Care Team Providers Care Community Center Director Name Role Phone Jaelyn Renteria APRN Primary Care Provider [phone] Vanessa Green MD Unavailable Encounter Details Date Type Department Care Team (Late st Contact Info) Description 11/09/2018 Transcribed Document [facility] [place] [facility] [place] [address] ProviderLexi MD [address] [place] [address] Social History Tobacco Use Types Packs/Day [...] on filedocumented in this encounter Care Teams Community Center Director Relationship Specialty Start Date End Date Jaelyn Renteria, SPECIAL MACHINE OPERATOR [address] [place] [address] PCP - General Family Medicine 10/06/22 Vanessa Green MD [address] [place] [phone] Director Of Physical Education Rheumatology 10/06/22 documented as of this encounter
--- OUTSIDE RECORDS SUMMARY | 2025-07-30 14:50 | XMS_ITS | Encounter Summary ---
Author Organization [employer] ([place], [place], [place], [place], [place]) Address [address] [place] [address] Care Team Providers Care Legal Billing Analyst Name Role Phone Jaelyn Renteria APRN Primary Care Provider [phone] Vanessa Green MD Unavailable Encounter Details Date Type Department Care Team (Late st Contact Info) Description 01/05/2019 Transcribed Document [facility] Family [place] [address] ProviderLexi MD [address] [place] [id number] Social History Tobacco Use Types Packs/Day [...] Endo IntraOp Summary Primary Physician: GILBERT OLSON MD-[facility] Finalized Date/Time: 01/05/19 13:55:28 Pt. Name: LILI DAMON D.O.B./Sex: 1960 Female Med Rec #: [id number] Physician: GILBERT OLSON MD-[facility] Financial #: [id number] Pt. Type: O Room/Bed: [facility] Admit/Disch: 01/05/19 12:03:00 - Institution: [facility] - Case Attendance Entry 1 Entry 2 Entry 3 Case Attendee YOUSIF OLSON YVONNE D., RN STEFFI GONZALEZ MD KAREN, MD-[facility] Role Performed Surgeon/Proceduralist, Machine Room Operator, First Anesthesiologist First Time In 01/05/19 13:22:00 [...] 5 Case Attendee CRISTIAN ASHFORD KAREN KIM, POUCH MAKING MACHINE OPERATOR Role Performed Machine Room Operator, First POUCH MAKING MACHINE OPERATOR/Nurse Aquatics Manager Time In 01/05/19 13:22:00 01/05/19 13:49:00 Time Out 01/05/19 13:57:00 01/05/19 13:57:00 Procedure Colonoscopy, Colonoscopy Esophagogastroduodenosco py, Duodenal Biopsy Other Attendee Superficial Wound Closed By: Last Modified By: CORNELIA DODD, RN CORNELIA DODD, RN 01/05/19 13:55:26 01/05/19 13:55:26 [facility] - Case Attendance Audit 01/05/19 13:55:26 Mass Communications Professor: HERBERT Modifier: HERBERT 1 <+> Time Out 1 <*> Procedure Colonoscopy, Esophagogastroduodenoscopy, Duodenal Biopsy 2 <+> Time Out 2 <*> Procedure Colonoscopy, Esophagogastroduodenoscopy, Duodenal Biopsy 3 <*> Procedure Colonoscopy, Esophagogastroduodenoscopy, Duodenal Biopsy 4 <+> Time Out 4 <*> Procedure Colonoscopy, Esophagogastroduodenoscopy, Duodenal Biopsy 5 <+> Time Out 5 <*> Procedure Colonoscopy 01/05/19 13:52:32 Mass Communications Professor: HERBERT Modifier: SHERMAYD 1 <*> Procedure Duodenal Biopsy 3 <+> Time Out 3 <*> Procedure Colonoscopy, Esophagogastroduodenoscopy, Duodenal Biopsy <+> 5 Case Attendee <+> 5 Role Performed <+> 5 Time In <+> 5 Procedure 01/05/19 13:32:03 Mass Communications Professor: HERBERT Modifier: SHERMAYD <+> 1 Procedure 2 <*> Procedure Colonoscopy, Esophagogastroduodenoscopy 3 <*> Procedure Colonoscopy, Esophagogastroduodenoscopy 4 <*> Procedure Colonoscopy, Esophagogastroduodenoscopy 01/05/19 13:25:00 Mass Communications Professor: HERBERT Modifier: SHERMAYD 2 <*> Procedure Colonoscopy, Esophagogastroduodenoscopy 3 <*> Procedure Colonoscopy, Esophagogastroduodenoscopy 4 <+> Time In 4 <*> Procedure Colonoscopy, Esophagogastroduodenoscopy 01/05/19 13:24:03 Mass Communications Professor: HERBERT Modifier: SHERMAYD <+> 4 Case Attendee [...] Endo - Case Times Audit 01/05/19 13:55:11 Mass Communications Professor: HERBERT Modifier: SHERMAYD <+> 1 Out Room Time <+> 1 Stop Time <+> 1 Stop Time 01/05/19 13:30:14 Mass Communications Professor: HERBERT Modifier: SHERMAYD <+> 1 Start Time 01/05/19 13:23:41 Mass Communications Professor: HERBERT Modifier: ANNAYD <+> 1 Anesthesia Ready [...] Modified By: CORNELIA DODD, JOB 01/05/19 13:25:10 [facility] - Fire Risk Assessment Entry 1 Fire Info Surgical Site or 1- Yes Incision Above the Xyphoid Open O2 Source 1- Yes (Mask or Cannula) Available Ignition 1- Yes ([facility], Laser, Light Source) Fire Risk 3 Assessment Score Fire Score Fire Risk Yes Assessment Complete Fire Risk CORNELIA DODD, judicial reporter Verified By Fire Risk 01/05/19 13:24:00 Assessment Verified Date/Time Fire Risk High Risk Protocol Yes Implemented Standard Fire Yes Safety Precautions Followed Last Modified By: CORNELIA DODD, RN 01/05/19 13:24:29 [facility] - General Case Nail Specialist 1 Case Information OR Endo 04 E Case Level 1 Room Verified Yes Wound Class III - Contaminated Specialty SN Gastroenterology Anesthesia Type MAC ASA Class 3 Diagnosis Preop Diagnosis Z12.11/K59.00/R93.3 Postop Diagnosis gastritis Last Modified By: CORNELIA DODD RN 01/05/19 13:37:17 [facility] - General Case Data Audit 01/05/19 13:37:17 Mass Communications Professor: HEREBRT Modifier: HERBERT 1 <*> OR Endo 03 [...] Endo - Intraoperative Equipment Audit 01/05/19 13:26:28 Mass Communications Professor: HERBERT Modifier: HERBERT <+> 2 Photo <+> 2 Video <+> 2 Blood Pressure Location <+> 2 Pulse Oximeter Probe Site <+> 2 Flexible Endoscopes Used <+> 2 Scope Serial Number/Identification Number [facility] - Patient Positioning Entry 1 Procedure [...] Endo - Patient Positioning Audit 01/05/19 13:32:04 Mass Communications Professor: HERBERT Modifier: HERBERT 1 <*> Procedure Esophagogastroduodenoscopy [...] Stop 01/05/19 13:54:00 01/05/19 13:34:00 01/05/19 13:34:00 [facility] 01/05/19 13:46:00 Cecum Reached Anesthesia Type MAC MAC MAC Specialty SN Gastroenterology SN Gastroenterology SN Gastroenterology Wound Class III - Contaminated II - Clean-Contaminated II - Clean-Contaminated Last Modified By: CORNELIA DODD, RN CORNELIA DODD, RN CORNELIA DODD, RN 01/05/19 13:54:47 01/05/19 13:36:44 01/05/19 13:36:44 [facility] - Surgical Procedures Audit 01/05/19 13:54:47 Mass Communications Professor: HERBERT Modifier: SHERMAYD 1 <*> Procedure Colonoscopy 1 <+> Stop 01/05/19 13:47:41 Mass Communications Professor: HERBERT Modifier: SHERMAYD 1 <*> Procedure Colonoscopy 1 <+> Physician States Cecum Reached 01/05/19 13:39:14 Mass Communications Professor: HERBERT Modifier: ANDREWMAYD 1 <*> Procedure Colonoscopy 1 <+> Specialty 1 <*> Start 01/05/19 13:30:00 01/05/19 13:36:44 Mass Communications Professor: HERBERT Modifier: SHERMAYD 2 <*> Procedure Esophagogastroduodenoscopy 2 <+> Stop 3 <*> Procedure Duodenal Biopsy 3 <+> Stop 01/05/19 13:31:59 Mass Communications Professor: HERBERT Modifier: SHERMAYD <+> 1 Start 2 [...] Endo - Time Out Audit 01/05/19 13:32:05 Mass Communications Professor: HERBERT Modifier: HERBERT 1 <*> Procedure to be Performed Colonoscopy, Esophagogastroduodenoscopy Case Comments <None> Finalized By: CORNELIA DODD, RN Document Signatures Signed By: CORNELIA DODD, RN 01/05/19 13:55 Electronically signed by [facility], [facility] Conversion Grass Farm Laborer Cerner at 12/14/2022 12:10 PM CDT documented in this encounter Plan of Treatment Not on file documented as of this encounter Visit Diagnoses Not on filedocumented in this encounter Care Teams Legal Billing Analyst Relationship Specialty Start Date End Date Jaelyn Renteria, LEAD RUBY ON RAILS DEVELOPER [address] [place] [address] PCP - General Family Medicine 10/06/22 Vanessa Green MD [address] [place] [phone] Industrial Engineering Technician Rheumatology 10/06/22 documented as of this encounter
--- OUTSIDE RECORDS SUMMARY | 2025-07-30 14:50 | XMS_ITS | Encounter Summary ---
Author Organization [employer] ([place], [place], [place], [place], [place]) Address [address] [place] [address] Care Team Providers Care Acquisitions Logistics Analyst Name Role Phone Jaelyn Renteria APRN Primary Care Provider Vanessa Green MD Unavailable Encounter Details Date Type Department Care Team (Late st Contact Info) Description 01/05/2019 Transcribed Document [facility] [place] Medicine Replaced by [facility] [place] [address] ProviderLexi MD [address] [place] [phone] Social History Tobacco Use Types Packs/Day [...] Endo PreOp Summary Primary Physician: GILBERT OLSON MD-[facility] Finalized Date/Time: 01/05/19 13:14:29 Pt. Name: LILI DAMON D.O.B./Sex: 1960 Female Med Rec #: [id number] Physician: GILBERT OLSON MD-[facility] Financial #: [id number] Pt. Type: O Room/Bed: [facility]/ Admit/Disch: 01/05/19 12:03:00 - Institution: [facility] PreOp Case Times Entry 1 In Preop 01/05/19 12:58:00 Ready for Holding n/a Room Patient Ready for 01/05/19 13:14:00 Surgery Patient Out of Preop 01/05/19 13:14:00 Patient Out of n/a Holding Room [facility] PreOp Case Times Audit 01/05/19 13:14:28 Humanities Teacher: BICKNEA Modifier: BICKNEA <+> 1 Patient Out of Preop <+> 1 Patient Ready for Surgery Finalized By: Albina Dove RN Document Signatures Signed By: Ablina Dove RN 01/05/19 13:14 Electronically signed by [facility] Conversion [employer]dp Displays Analyst Cerner at 12/14/2022 11:52 AM CDT documented in this encounter Plan of Treatment Not on file documented as of this encounter Visit Diagnoses Not on filedocumented in this encounter Care Teams Acquisitions Logistics Analyst Relationship Specialty Start Date End Date Jaelyn Renteria, TRANSCRIPTIONIST [address] [place] [address] PCP - General Family Medicine 10/06/22 Vanessa Green MD [address] [place] [phone] Probation Counselor Rheumatology 10/06/22 documented as of this encounter
[2025-07-30 15:01] VITALS: BP 128/77
[2025-07-30 17:07] VITALS: BP 130/72; PULSE 80; RESP 20; TEMP 36.8; O2SAT 99
== END 2025-07-30 17:13 | disposition home or self-care (01) ==
PROVIDERS: Emergency Provider Student in an Organized Health Care Education/Training Program; PCP Nurse Practitioner Family
DX: S63.91XA Sprain of unspecified part of right wrist and hand, initial encounter (principal); W19.XXXA Unspecified fall, initial encounter
CPT/HCPCS: 73110; 73130; 99283